=== PATIENT | male | born 1975 | race American Indian/Alaskan Native ===

== ENCOUNTER 2020-02-25 00:25 | Inpatient (IN) | payer MEDICAID ==
[~2020-02-25 00:25] MED LIST: KETAMINE 500 MG/5 ML VIAL MDV ONE; ROCURONIUM 50 MG/5 ML INJ IV ONE
[2020-02-25] MEDS ORDERED: SODIUM CHLORIDE 0.9% 1000 ML 1,000 ML IV ONE (00:28)
[2020-02-25] MEDS ORDERED: SODIUM CHLORIDE 0.9% 1000 ML IV SOLN IV ONE (00:29)
[2020-02-25] MEDS ORDERED: CEFEPIME/NS 2 GM/100 ML 2 GM/100 ML BAG IV ONE ×2 (00:33→15:09)
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
--- NOTE | 2020-02-25 01:18 | XRay Report ---
CHEST 1 VIEW 02/25/2020 12:01 AM INDICATION / CLINICAL INFORMATION: Dyspnea. COMPARISON: None available. FINDINGS: SUPPORT DEVICES: None. HEART / MEDIASTINUM: No significant abnormality. LUNGS / PLEURA: Small bilateral pleural effusions. Extensive airspace consolidation bilaterally worse within both upper lobes characteristic for pneumonia. No pneumothorax. ADDITIONAL FINDINGS: No significant additional findings. IMPRESSION: 1. Severe bilateral bronchopneumonia with small bilateral parapneumonic effusions Signer Name: Ulises Ulrich MD Signed: 02/25/2020 1:13 AM Workstation Name: [id number]
[2020-02-25] MEDS ORDERED: HYDROmorphone 2 MG/1 ML INJ IV ONE ×2 (01:34→03:54)
[2020-02-25] MEDS ORDERED: HYDROmorphone 1 MG/1 ML INJ ONE ×2 (01:34→03:54)
[2020-02-25 01:53] LABS: Basophils % (Auto) 0.4 % (0.0-1.8); Hematocrit 28.5 % (35.5-45.6); Hemoglobin 8.9 gm/dl (11.8-15.2); Lymphocytes # (Auto) 0.9 K/mm3 (1.2-5.4); Lymphocytes % (Auto) 9.1 % (13.4-35.0); Mean Corpuscular HGB Conc 31 % (32-34); Mean Corpuscular Volume 89 fl (84-94); Monocytes # (Auto) 0.4 K/mm3 (0.0-0.8); Monocytes % (Auto) 3.9 % (0.0-7.3); Platelet Count 452 K/mm3 (140-440); Red Blood Count 3.22 M/mm3 (3.65-5.03)
[2020-02-25 02:03] LABS: Red Cell Distribution Width 24.8 % (13.2-15.2)
[2020-02-25] MEDS ORDERED: VANCOMYCIN/NS 1 GM/250 ML 1 GM/250 ML BAG IV ONE (02:07)
[2020-02-25 02:08] LABS: Creatine Kinase MB 2.4 ng/mL (0.0-4.0)
[2020-02-25 02:10] LABS: Albumin 2.5 g/dL (3.9-5); BUN/Creatinine Ratio 21; Blood Urea Nitrogen 17 mg/dL (9-20); Calcium 8.3 mg/dL (8.4-10.2); Hemolysis Index 32
[2020-02-25 02:25] LABS: Alanine Aminotransferase < 5 units/L (7-56)
[2020-02-25 02:50] LABS: Bilirubin,Urine NEG (Negative); Blood,Urine LG (Negative); Color,Urine Yellow (Yellow); Hyaline Casts,Urine 2 /LPF; Urobilinogen,Urine < 2.0 mg/dL (<2.0)
[2020-02-25 02:51] LABS: RBC,Urine > 182.0 /HPF (0.0-6.0)
[2020-02-25 02:54] LABS: Amphetamine Screen,Urine PRESUMPTIVE NEGATIVE; Benzodiazepines Screen,Urine PRESUMPTIVE NEGATIVE; Cannabinoid Screen,Urine PRESUMPTIVE NEGATIVE; Cocaine Screen,Urine PRESUMPTIVE NEGATIVE; Methadone Screen,Urine PRESUMPTIVE NEGATIVE; Opiate Screen,Urine PRESUMPTIVE NEGATIVE
[2020-02-25] MEDS ORDERED: AZITHROMYCIN 500 MG in SODIUM CHLORIDE 0.9% 250ML 250 ML IV ONE (02:58)
[2020-02-25] MEDS ORDERED: dexAMETHasone 4 MG/ML VIAL IV ONE (02:58)
[2020-02-25 03:18] LABS: Chol/HDL Ratio 2.93 %; HDL Cholesterol 32 mg/dL (40-59); LDL Cholesterol,Direct 45 mg/dL (50-130)
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
[2020-02-25] MEDS ORDERED: ONDANSETRON 4 MG/2 ML INJ IV PRN (04:16)
[2020-02-25] MEDS ORDERED: ACETAMINOPHEN 325 MG TAB PO PRN (04:16)
[2020-02-25] MEDS ORDERED: MAGNESIUM HYDROXIDE (MOM) ORAL LIQD UDC PO PRN (04:16)
[2020-02-25 04:40] LABS: C-Reactive Protein 8.8 mg/dL (0.00-1.30)
[2020-02-25] MEDS ORDERED: VANCOMYCIN PHARMACY TO DOSE IV SCH (05:00)
[2020-02-25] MEDS ORDERED: dexAMETHasone 4 MG/ML VIAL ONE (05:39)
[2020-02-25] MEDS ORDERED: LORazepam 2 MG/ML VIAL ONE (05:51)
[2020-02-25] MEDS ORDERED: LORazepam 2 MG/ML VIAL IV ONE (05:52)
[2020-02-25] MEDS ORDERED: FUROSEMIDE 40 MG/4 ML INJ ONE (06:09)
[2020-02-25] MEDS ORDERED: FUROSEMIDE 40 MG/4 ML INJ IV ONE (06:09)
[2020-02-25] MEDS: NORepinephrine/NS 4 MG-250 ML 4 MG/250 ML BAG IV SCH ×6 (06:17→23:10)
[2020-02-25] MEDS ORDERED: NORepinephrine/NS 4 MG-250 ML 4 MG/250 ML BAG IV ONE ×5 (06:17→17:13)
--- NOTE | 2020-02-25 06:23 | XRay Report ---
CHEST 1 VIEW 02/25/2020 5:14 AM INDICATION / CLINICAL INFORMATION: respiratory distress. COMPARISON: 02/25/2020 12:33 AM same day FINDINGS: SUPPORT DEVICES: None. HEART / MEDIASTINUM: Extensive bilateral airspace consolidation and small bilateral pleural effusions are again noted. LUNGS / PLEURA: No significant pulmonary or pleural abnormality. No pneumothorax. ADDITIONAL FINDINGS: No significant additional findings. IMPRESSION: 1. Stable chest with extensive bilateral pneumonia and small bilateral parapneumonic effusions Signer Name: Ulises Ulrich MD Signed: 02/25/2020 6:19 AM Workstation Name: [id number]
[2020-02-25] MEDS ORDERED: fentaNYL DRIP Premix 2,000 MCG/100 ML BAG IV ONE (06:32)
[2020-02-25] MEDS: fentaNYL DRIP Premix 2,000 MCG/100 ML BAG IV SCH ×2 (06:32→18:45)
[2020-02-25] MEDS: HEPARIN 5,000 UNIT/1 ML VIAL SUB-Q SCH ×3 (06:48→21:24)
[2020-02-25] MEDS: CEFEPIME/NS 2 GM/100 ML 2 GM/100 ML BAG IV SCH ×3 (06:48→22:37)
[2020-02-25] MEDS: AMIODARONE 900 MG in DEXTROSE 5% IN WATER 482 ML IV SCH (07:15)
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
[2020-02-25 09:45] LABS: ABG HCO3 17.2 mmol/L (20.0-26.0); ABG Methemoglobin 0.5 % (0.0-1.5); ABG Oxygen Saturation 98.7 % (95.0-99.0); ABG PCO2 50.6 mm Hg; ABG PO2 165.3 mm Hg (80.0-90.0)
[2020-02-25 09:59] LABS: ABG PH 7.149 pH Units (7.350-7.450)
[2020-02-25] MEDS ORDERED: SODIUM CHLORIDE 0.9% 1000 ML 1,000 ML IV SCH (10:48)
[2020-02-25] MEDS: SODIUM CHLORIDE 0.9% 1000 ML 1,000 ML IV SCH ×2 (11:30→20:14)
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
[2020-02-25] MEDS ORDERED: SODIUM CHLORIDE 0.9% 1000 ML 1,000 ML ONE (11:38)
--- NOTE | 2020-02-25 11:42 | XRay Report ---
CHEST 1 VIEW 02/25/2020 10:20 AM INDICATION / CLINICAL INFORMATION: post intubation. COMPARISON: 5:48 AM FINDINGS: SUPPORT DEVICES: Endotracheal tube has been placed with the tip 4 cm above the andrew. Esophagogastri c tube has been placed below the diaphragm into the stomach. HEART / MEDIASTINUM: Stable. LUNGS / PLEURA: Extensive, bilateral pulmonary opacities are unchanged. No pneumothorax. ADDITIONAL FINDINGS: No significant additional findings. IMPRESSION: 1. Endotracheal tube in expected position. Esophagogastric tube in expected position. Signer Name: Janice Zaldivar MD Signed: 02/25/2020 11:37 AM Workstation Name: [id number]
[2020-02-25] MEDS ORDERED: HEPARIN 5,000 UNIT/1 ML VIAL ONE ×2 (13:11→13:14)
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
[2020-02-25] MEDS ORDERED: VANCOMYCIN 750 MG in SODIUM CHLORIDE 0.9% 250ML 250 ML IV SCH (15:00)
[2020-02-25 16:38] LABS: ABG HCO3 17.4 mmol/L (20.0-26.0); ABG Methemoglobin 0.6 % (0.0-1.5); ABG Oxygen Saturation 85.2 % (95.0-99.0); ABG PCO2 40.1 mm Hg; ABG PH 7.256 pH Units (7.350-7.450); ABG PO2 64.5 mm Hg (80.0-90.0)
[2020-02-25] MEDS: VANCOMYCIN 750 MG in SODIUM CHLORIDE 0.9% 250ML 250 ML IV SCH (20:13)
[2020-02-25] MEDS ORDERED: AMIODARONE 150 MG/3 ML INJ IV ONE (22:34)
[2020-02-25] MEDS ORDERED: EPINEPHrine 1 MG/10 ML SYRINGE ONE (22:34)
[2020-02-25] MEDS ORDERED: SODIUM BICARB 8.4% 50 MEQ/50 ML SYRINGE IV ONE (22:34)
[2020-02-26] MEDS: NORepinephrine/NS 4 MG-250 ML 4 MG/250 ML BAG IV SCH ×2 (03:09→07:21)
[2020-02-26] MEDS: AMIODARONE 900 MG in DEXTROSE 5% IN WATER 482 ML IV SCH (03:11)
[2020-02-26 04:33] LABS: ABG Base Excess -11.9 mmol/L (-2.0-3.0); ABG HCO3 13.9 mmol/L (20.0-26.0); ABG Methemoglobin 0.5 % (0.0-1.5); ABG Oxygen Saturation 99.3 % (95.0-99.0); ABG PH 7.269 pH Units (7.350-7.450); ABG PO2 236.1 mm Hg (80.0-90.0)
[2020-02-26] MEDS: fentaNYL DRIP Premix 2,000 MCG/100 ML BAG IV SCH ×2 (04:52→15:57)
[2020-02-26] MEDS: SODIUM CHLORIDE 0.9% 1000 ML 1,000 ML IV SCH (06:36)
[2020-02-26] MEDS: CEFEPIME/NS 2 GM/100 ML 2 GM/100 ML BAG IV SCH ×3 (06:36→21:44)
[2020-02-26] MEDS: HEPARIN 5,000 UNIT/1 ML VIAL SUB-Q SCH ×3 (06:40→21:45)
[2020-02-26 06:41] LABS: Mean Corpuscular HGB Conc 29 % (32-34); Mean Corpuscular Volume 94 fl (84-94); Platelet Count 400 K/mm3 (140-440); Red Blood Count 2.61 M/mm3 (3.65-5.03)
[2020-02-26 06:43] LABS: Hematocrit 24.5 % (35.5-45.6); Red Cell Distribution Width 25.1 % (13.2-15.2)
[2020-02-26 06:48] LABS: INR 1.46 (0.87-1.13)
[2020-02-26 06:58] LABS: BUN/Creatinine Ratio 36; Blood Urea Nitrogen 29 mg/dL (9-20); Calcium 7.8 mg/dL (8.4-10.2); Hemolysis Index 2
[2020-02-26] MEDS ORDERED: DEXTROSE 50% IN WATER (25GM) 50 ML SYRINGE IV ONE (07:00)
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
[2020-02-26] MEDS ORDERED: SODIUM BICARB 8.4% 50 MEQ/50 ML SYRINGE IV ONE (07:18)
[2020-02-26] MEDS ORDERED: SODIUM CHLORIDE 0.9% 500 ML 500 ML IV ONE (08:00)
[2020-02-26] MEDS: VANCOMYCIN 750 MG in SODIUM CHLORIDE 0.9% 250ML 250 ML IV SCH ×2 (09:35→20:48)
--- NOTE | 2020-02-26 09:41 | XRay Report ---
CHEST 1 VIEW [id number] INDICATION / CLINICAL INFORMATION: Hypoxemia COMPARISON: 02/25/2020 FINDINGS: SUPPORT DEVICES: Stable HEART / MEDIASTINUM: Stable LUNGS / PLEURA: Prominent patchy bilateral pulmonary infiltrates continue without significant change. Left pleural effusion is unchanged. No pneumothorax. ADDITIONAL FINDINGS: No significant additional findings. Signer Name: Angel Joya MD Signed: 02/26/2020 9:36 AM Workstation Name: [id number]
[2020-02-26 11:32] LABS: Anisocytosis 2+; Basophils % (Manual) 0 % (0.0-1.8); Eosinophils % (Manual) 0 % (0.0-4.3); Macrocytosis Few; Platelet Estimate Consistent w Auto; Total Cells Counted 100
--- NOTE | 2020-02-26 12:01 | Progress Note ---
Subjective Date of service: 02/26/20 Principal diagnosis: Acute respiratory failure Interval history: Assessment and Plan 1. OOH cardiac arrest, resp failure Vtach requiring shock, now on Iv amiodarone gtt 2. Sepsis 3. Elevated cardiac enzymes likely type II non-ST elevation ID (defib shock, acidosis) 4. Paraplegia Plan Aggressive treatment of sepsis and infection supportive cardiac care with Iv amio for now COVID negative Echo pending Further treatment with based on clinical course Prognosis poor Objective Vital Signs Temp Pulse Resp BP Pulse Ox 02/26/20 08:15 107 H 105/76 100 02/26/20 04:05 130 H 126/97 100 02/26/20 04:00 116 H 02/26/20 03:34 97.9 F 02/26/20 00:00 101 H 02/25/20 23:19 97.4 F L 02/25/20 23:16 113 H 108/79 100 02/25/20 22:00 113 H 02/25/20 19:30 97.5 F L 02/25/20 19:28 131 H 143/95 100 02/25/20 18:30 107 H 21 115/87 100 02/25/20 18:15 107 H 20 117/84 100 02/25/20 18:00 104 H 20 109/81 100 02/25/20 17:45 108 H 20 107/79 100 02/25/20 17:30 107 H 20 106/79 100 02/25/20 17:15 108 H 20 101/70 100 02/25/20 17:00 110 H 21 101/74 100 02/25/20 16:45 114 H 22 106/75 100 02/25/20 16:31 125 H 25 H 127/80 02/25/20 16:15 120 H 17 115/82 100 02/25/20 16:00 119 H 25 H 115/82 100 02/25/20 15:45 124 H 14 115/84 100 02/25/20 15:31 139 H 37 H 135/102 97 02/25/20 15:20 119 H 115/80 100 02/25/20 15:15 131 H 27 H 134/85 100 02/25/20 15:00 119 H 22 115/75 100 02/25/20 14:45 120 H 26 H 105/81 100 02/25/20 14:30 138 H 32 H 130/98 100 09/25/20 14:15 136 H 31 H 142/91 02/25/20 14:00 135 H 35 H 131/91 02/25/20 13:45 116 H 22 116/82 02/25/20 13:30 131 H 33 H 130/109 02/25/20 13:15 130 H 33 H 140/98 02/25/20 13:01 109 H 23 113/86 02/25/20 12:45 109 H 20 111/84 02/25/20 12:31 108 H 23 108/80 02/25/20 12:20 109 H 107/80 02/25/20 12:15 108 H 22 105/79 02/25/20 12:01 109 H 23 104/78 100 - Physical Examination Cardiac: Positive: Reg Rate and Rhythm, S1/S2 Lungs: Positive: Normal Exam - Labs and Meds Coagulation 02/26/20 Range/Units 04:00 PT 17.9 H (12.2-14.9) Sec. INR 1.46 H (0.87-1.13) CBC 02/26/20 Range/Units 04:00 WBC 20.4 H (4.5-11.0) K/mm3 RBC 2.61 L (3.65-5.03) M/mm3 Hgb 7.0 L (11.8-15.2) gm/dl Hct 24.5 L (35.5-45.6) % Plt Count 400 (140-440) K/mm3 Comprehensive Metabolic Panel 02/26/20 Range/Units 04:00 Sodium 143 (137-145) mmol/L Potassium 4.1 (3.6-5.0) mmol/L Chloride 111.1 H (98-107) mmol/L Carbon Dioxide 14 L D (22-30) mmol/L BUN 29 H (9-20) mg/dL Creatinine 0.8 (0.8-1.3) mg/dL Glucose 57 L (75-100) mg/dL Calcium 7.8 L (8.4-10.2) mg/dL - Imaging and Cardiology EKG: report reviewed, image reviewed
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
[2020-02-27] MEDS: fentaNYL DRIP Premix 2,000 MCG/100 ML BAG IV SCH ×2 (02:34→14:00)
[2020-02-27] MEDS: SODIUM CHLORIDE 0.9% 1000 ML 1,000 ML IV SCH ×3 (02:34→23:45)
[2020-02-27] MEDS: NORepinephrine/NS 4 MG-250 ML 4 MG/250 ML BAG IV SCH (02:34)
[2020-02-27] MEDS: AMIODARONE 900 MG in DEXTROSE 5% IN WATER 482 ML IV SCH (02:44)
[2020-02-27 05:25] LABS: ABG Base Excess -8.5 mmol/L (-2.0-3.0); ABG Methemoglobin 0.4 % (0.0-1.5); ABG Oxygen Saturation 98.8 % (95.0-99.0); ABG PCO2 34.9 mm Hg; ABG PH 7.306 pH Units (7.350-7.450); ABG PO2 149.6 mm Hg (80.0-90.0)
[2020-02-27] MEDS: HEPARIN 5,000 UNIT/1 ML VIAL SUB-Q SCH ×3 (06:07→22:35)
[2020-02-27] MEDS: CEFEPIME/NS 2 GM/100 ML 2 GM/100 ML BAG IV SCH ×3 (06:11→22:38)
[2020-02-27] MEDS: VANCOMYCIN 750 MG in SODIUM CHLORIDE 0.9% 250ML 250 ML IV SCH ×2 (06:50→18:18)
[2020-02-27] MEDS ORDERED: DEXTROSE 50% IN WATER (25GM) 50 ML SYRINGE IV ONE (07:11)
[2020-02-27] MEDS: DEXTROSE 50% IN WATER (25GM) 50 ML SYRINGE IV PRN ×2 (07:30→18:18)
[2020-02-27 08:24] LABS: Alanine Aminotransferase 19 units/L (7-56); BUN/Creatinine Ratio 36; Blood Urea Nitrogen 29 mg/dL (9-20); Calcium 7.9 mg/dL (8.4-10.2); Hematocrit 27.4 % (35.5-45.6); Hemoglobin 8.4 gm/dl (11.8-15.2); Hemolysis Index 8; Mean Corpuscular HGB Conc 31 % (32-34); Mean Corpuscular Volume 89 fl (84-94); Platelet Count 351 K/mm3 (140-440); Red Blood Count 3.07 M/mm3 (3.65-5.03)
[2020-02-27 08:38] LABS: Red Cell Distribution Width 24.4 % (13.2-15.2)
--- NOTE | 2020-02-27 09:27 | Progress Note ---
Assessment and Plan 44 y/o male admitted with hypoxemia, fever and brody catheter pain, subsequent cardiac arrest in the ED, resuscitated and intubated, now with hypotension, anion gap metabolic acidosis, acute respiratory failure, hypoglycemia and vtach/vfib 1. Pulm-intubated, sedated. PaO2 is much improved with increased PEEP. CXR is unchanged on yesterday but oxygenation is improving. Down to 40%. Will start to wean PEEP. EF is 15%. Needs cardiac optimization with appropriate heart failure therapy prior to exutabation. Given continued pressor requirement, may even need intropic support. Would like to transfuse more but blood bank will not allow given HgB is 8.4 this am. 2. CV-Vtach during the code. Shocked and treated with amio. Currently on AMio drip. Will continue this for now. Hypotension is likely multifactorial. Echo is showing severe systolic heart failure. Cardiology following, await recs for today. 3. Heme-Anemia. Etiology unknown. Could be from chronic disease. Repeat again tomorrow morning. 4. Renal- aNion Gap now down to 14. Responded to volume and blood. Bicarb is better. Will give an additional amp today to see if this will help with pressor requirement. 5. Endo-hypoglycemic this am. Likely from NPO status. Started on Q6hour Finger sticks and gave D50. Will feed today. 6. 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 Attempting to get records from [place]. Continue broad spec abx therapy and agree with HIV labs. COVID negative. Overall prognosis is guarded to poor CCT 31 minutes. Subjective Date of service: 02/27/20 Principal diagnosis: Acute respiratory failure Interval history: No acute events. Tolerated Blood transfusion on yesterday. Now down to 6 of levophed. Objective Vital Signs - 12hr 02/26/20 02/26/20 02/26/20 21:30 21:45 22:00 Temperature Pulse Rate 125 H 115 H 102 H Respiratory 20 22 17 Rate Blood Pressure 86/62 117/88 98/73 O2 Sat by Pulse 100 Oximetry 02/26/20 02/26/20 02/26/20 22:12 22:15 22:17 Temperature Pulse Rate 94 H 93 H 92 H Respiratory 19 20 19 Rate Blood Pressure 98/73 83/57 83/57 O2 Sat by Pulse 100 100 Oximetry 02/26/20 02/26/20 02/26/20 22:30 22:45 23:00 Temperature Pulse Rate 89 87 88 Respiratory 19 20 21 Rate Blood Pressure 82/58 85/58 83/60 O2 Sat by Pulse Oximetry 02/26/20 02/26/20 02/26/20 23:15 23:19 23:30 Temperature 98.8 F Pulse Rate 88 87 Respiratory 20 20 Rate Blood Pressure 88/63 90/64 O2 Sat by Pulse 100 Oximetry 02/26/20 02/26/20 02/27/20 23:45 23:49 00:00 Temperature Pulse Rate 103 H 114 H 91 H Respiratory 15 21 Rate Blood Pressure 103/79 103/79 123/90 O2 Sat by Pulse 100 100 100 Oximetry 02/27/20 02/27/20 02/27/20 00:03 00:15 00:30 Temperature Pulse Rate 149 H 94 H 85 Respiratory 20 20 Rate Blood Pressure 105/76 101/68 O2 Sat by Pulse 100 Oximetry 02/27/20 02/27/20 02/27/20 00:45 01:00 01:15 Temperature Pulse Rate 88 109 H 118 H Respiratory 20 22 14 Rate Blood Pressure 97/68 110/86 126/97 O2 Sat by Pulse 100 100 Oximetry 02/27/20 02/27/20 02/27/20 01:30 01:45 02:01 Temperature Pulse Rate 109 H 115 H 124 H Respiratory 13 17 25 H Rate Blood Pressure 121/86 126/90 133/95 O2 Sat by Pulse 100 100 Oximetry 02/27/20 02/27/20 02/27/20 02:15 02:30 02:45 Temperature Pulse Rate 104 H 96 H 89 Respiratory 15 21 20 Rate Blood Pressure 112/80 102/74 90/66 O2 Sat by Pulse 100 100 Oximetry 02/27/20 02/27/20 02/27/20 03:00 03:06 03:15 Temperature 98.9 F Pulse Rate 87 101 H Respiratory 18 16 Rate Blood Pressure 92/66 101/73 O2 Sat by Pulse 100 Oximetry 02/27/20 02/27/20 02/27/20 03:30 03:45 04:00 Temperature Pulse Rate 106 H 106 H 116 H Respiratory 26 H 27 H 17 Rate Blood Pressure 114/86 116/87 125/86 O2 Sat by Pulse 100 100 Oximetry 0902/27/20 02/27/20 04:15 04:30 04:45 Temperature Pulse Rate 98 H 115 H 97 H Respiratory 15 30 H 19 Rate Blood Pressure 105/78 119/90 106/75 O2 Sat by Pulse 100 Oximetry 02/27/20 02/27/20 02/27/20 05:00 05:15 05:30 Temperature Pulse Rate 94 H 89 91 H Respiratory 19 20 17 Rate Blood Pressure 99/72 98/71 99/70 O2 Sat by Pulse Oximetry 02/27/20 02/27/20 02/27/20 05:45 06:00 06:15 Temperature Pulse Rate 86 105 H 113 H Respiratory 20 20 21 Rate Blood Pressure 95/68 120/87 128/93 O2 Sat by Pulse 100 Oximetry 02/27/20 02/27/20 06:30 08:14 Temperature Pulse Rate 92 H 91 H Respiratory 20 Rate Blood Pressure 116/82 107/77 O2 Sat by Pulse 99 100 Oximetry Constitutional: agitated, appears uncomfortable, other (diaphoretic) Eyes: icteric, injected ENT: other (orally intubated with poor dentition) Neck: supple, no JVD Effort: mildly labored Ascultation: Right: rhonchi (upper lobe), Bilateral: rales Percussion: Bilateral: not dull Cardiovascular: other (sinus tach) Gastrointestinal: normoactive bowel sounds, soft Extremities: other (per nursing report, decubitus ulcer) Neurologic: unable to assess CBC and BMP: 02/27/20 07:30 02/27/20 07:30 ABG, PT/INR, D-dimer: ABG ABG pH 7.306 pH Units (7.350-7.450) L 02/27/20 04:59 ABG pCO2 34.9 mm Hg 02/27/20 04:59 ABG pO2 149.6 mm Hg (80.0-90.0) H 02/27/20 04:59 ABG O2 Saturation 98.8 % (95.0-99.0) 02/27/20 04:59 PT/INR, D-dimer PT 17.9 Sec. (12.2-14.9) H 02/26/20 04:00 INR 1.46 (0.87-1.13) H 02/26/20 04:00 D-Dimer 3251.26 ng/mlDDU (0-234) H 02/25/20 03:37 Abnormal lab findings: Abnormal Labs 02/25/20 02/25/20 02/25/20 00:46 00:46 00:46 WBC RBC 3.22 L Hgb 8.9 L Hct 28.5 L MCH MCHC 31 L RDW 24.8 H Plt Count 452 H Lymph % (Auto) 9.1 L Lymph # (Auto) 0.9 L Seg Neutrophils % 86.6 H Seg Neuts % (Manual) Lymphocytes % (Manual) Seg Neutrophils # 8.9 H Seg Neutrophils # Man Lymphocytes # (Manual) PT INR D-Dimer ABG pH ABG pO2 ABG HCO3 ABG O2 Saturation ABG Base Excess ABG Hemoglobin Oxyhemoglobin Sodium Chloride Carbon Dioxide BUN Glucose POC Glucose Lactic Acid 2.10 H* Calcium 8.3 L Ferritin AST ALT < 5 L Alkaline Phosphatase 187 H Lactate Dehydrogenase Total Creatine Kinase 28 L CK-MB (CK-2) Rel Index 8.5 H Troponin T 0.190 H* C-Reactive Protein Total Protein Albumin 2.5 L LDL Cholesterol Direct 45 L HDL Cholesterol 32 L Urine WBC (Auto) Crossmatch 02/25/20 02/25/20 02/25/20 02:32 03:37 03:37 WBC RBC Hgb Hct MCH MCHC RDW Plt Count Lymph % (Auto) Lymph # (Auto) Seg Neutrophils % Seg Neuts % (Manual) Lymphocytes % (Manual) Seg Neutrophils # Seg Neutrophils # Man Lymphocytes # (Manual) PT INR D-Dimer 3251.26 H ABG pH ABG pO2 ABG HCO3 ABG O2 Saturation ABG Base Excess ABG Hemoglobin Oxyhemoglobin Sodium Chloride Carbon Dioxide BUN Glucose 144 H POC Glucose Lactic Acid Calcium Ferritin AST ALT Alkaline Phosphatase Lactate Dehydrogenase 234 H Total Creatine Kinase CK-MB (CK-2) Rel Index Troponin T C-Reactive Protein 8.80 H Total Protein Albumin LDL Cholesterol Direct HDL Cholesterol Urine WBC (Auto) 68.0 H Crossmatch 02/25/20 02/25/20 02/25/20 03:37 05:36 06:33 WBC RBC Hgb Hct MCH MCHC RDW Plt Count Lymph % (Auto) Lymph # (Auto) Seg Neutrophils % Seg Neuts % (Manual) Lymphocytes % (Manual) Seg Neutrophils # Seg Neutrophils # Man Lymphocytes # (Manual) PT INR D-Dimer ABG pH ABG pO2 ABG HCO3 ABG O2 Saturation ABG Base Excess ABG Hemoglobin Oxyhemoglobin Sodium Chloride Carbon Dioxide BUN Glucose POC Glucose 234 H Lactic Acid Calcium Ferritin 450.5 H AST ALT Alkaline Phosphatase Lactate Dehydrogenase Total Creatine Kinase CK-MB (CK-2) Rel Index Troponin T 0.187 H* C-Reactive Protein Total Protein Albumin LDL Cholesterol Direct HDL Cholesterol Urine WBC (Auto) Crossmatch 02/25/20 02/25/20 02/25/20 09:30 13:10 16:27 WBC RBC Hgb Hct MCH MCHC RDW Plt Count Lymph % (Auto) Lymph # (Auto) Seg Neutrophils % Seg Neuts % (Manual) Lymphocytes % (Manual) Seg Neutrophils # Seg Neutrophils # Man Lymphocytes # (Manual) PT INR D-Dimer ABG pH 7.149 L* 7.256 L ABG pO2 165.3 H 64.5 L ABG HCO3 17.2 L 17.4 L ABG O2 Saturation 85.2 L ABG Base Excess -11.0 L -9.0 L ABG Hemoglobin 7.5 L 8.4 L Oxyhemoglobin 83.4 L Sodium Chloride Carbon Dioxide BUN Glucose POC Glucose Lactic Acid 3.20 H* Calcium Ferritin AST ALT Alkaline Phosphatase Lactate Dehydrogenase Total Creatine Kinase CK-MB (CK-2) Rel Index Troponin T C-Reactive Protein Total Protein Albumin LDL Cholesterol Direct HDL Cholesterol Urine WBC (Auto) Crossmatch 02/26/20 02/26/20 02/26/20 04:00 04:00 04:00 WBC 20.4 H RBC 2.61 L Hgb 7.0 L Hct 24.5 L MCH 27 L MCHC 29 L RDW 25.1 H Plt Count Lymph % (Auto) Lymph # (Auto) Seg Neutrophils % Seg Neuts % (Manual) 92.0 H Lymphocytes % (Manual) 4.0 L Seg Neutrophils # Seg Neutrophils # Man 18.8 H Lymphocytes # (Manual) 0.8 L PT 17.9 H INR 1.46 H D-Dimer ABG pH ABG pO2 ABG HCO3 ABG O2 Saturation ABG Base Excess ABG Hemoglobin Oxyhemoglobin Sodium Chloride 111.1 H Carbon Dioxide 14 L D BUN 29 H Glucose 57 L POC Glucose Lactic Acid Calcium 7.8 L Ferritin AST ALT Alkaline Phosphatase Lactate Dehydrogenase Total Creatine Kinase CK-MB (CK-2) Rel Index Troponin T C-Reactive Protein Total Protein Albumin LDL Cholesterol Direct HDL Cholesterol Urine WBC (Auto) Crossmatch 02/26/20 02/26/20 02/26/20 04:20 07:13 09:20 WBC RBC Hgb Hct MCH MCHC RDW Plt Count Lymph % (Auto) Lymph # (Auto) Seg Neutrophils % Seg Neuts % (Manual) Lymphocytes % (Manual) Seg Neutrophils # Seg Neutrophils # Man Lymphocytes # (Manual) PT INR D-Dimer ABG pH 7.269 L ABG pO2 236.1 H ABG HCO3 13.9 L ABG O2 Saturation 99.3 H ABG Base Excess -11.9 L ABG Hemoglobin 7.2 L Oxyhemoglobin Sodium Chloride Carbon Dioxide BUN Glucose POC Glucose 52 L Lactic Acid Calcium Ferritin AST ALT Alkaline Phosphatase Lactate Dehydrogenase Total Creatine Kinase CK-MB (CK-2) Rel Index Troponin T C-Reactive Protein Total Protein Albumin LDL Cholesterol Direct HDL Cholesterol Urine WBC (Auto) Crossmatch See Detail 02/27/20 02/27/20 02/27/20 04:59 05:40 07:30 WBC 16.6 H RBC 3.07 L Hgb 8.4 L Hct 27.4 L MCH MCHC 31 L RDW 24.4 H Plt Count Lymph % (Auto) Lymph # (Auto) Seg Neutrophils % Seg Neuts % (Manual) Lymphocytes % (Manual) Seg Neutrophils # Seg Neutrophils # Man Lymphocytes # (Manual) PT INR D-Dimer ABG pH 7.306 L ABG pO2 149.6 H ABG HCO3 17.0 L ABG O2 Saturation ABG Base Excess -8.5 L ABG Hemoglobin 7.8 L Oxyhemoglobin Sodium Chloride Carbon Dioxide BUN Glucose POC Glucose 64 L Lactic Acid Calcium Ferritin AST ALT Alkaline Phosphatase Lactate Dehydrogenase Total Creatine Kinase CK-MB (CK-2) Rel Index Troponin T C-Reactive Protein Total Protein Albumin LDL Cholesterol Direct HDL Cholesterol Urine WBC (Auto) Crossmatch 02/27/20 07:30 WBC RBC Hgb Hct MCH MCHC RDW Plt Count Lymph % (Auto) Lymph # (Auto) Seg Neutrophils % Seg Neuts % (Manual) Lymphocytes % (Manual) Seg Neutrophils # Seg Neutrophils # Man Lymphocytes # (Manual) PT INR D-Dimer ABG pH ABG pO2 ABG HCO3 ABG O2 Saturation ABG Base Excess ABG Hemoglobin Oxyhemoglobin Sodium 146 H Chloride 115.0 H Carbon Dioxide 17 L BUN 29 H Glucose 72 L POC Glucose Lactic Acid Calcium 7.9 L Ferritin AST 118 H ALT Alkaline Phosphatase 273 H Lactate Dehydrogenase Total Creatine Kinase CK-MB (CK-2) Rel Index Troponin T C-Reactive Protein Total Protein 5.3 L D Albumin 2.0 L LDL Cholesterol Direct HDL Cholesterol Urine WBC (Auto) Crossmatch
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
[2020-02-27] MEDS ORDERED: SIMPLE SYRUP 15 ML FEEDTUBE PRN ×2 (10:25)
[2020-02-27] MEDS ORDERED: LIPASE 10,500/PROTEASE 25,000/AMYLASE 43,750 (UNITS) DR CAP FEEDTUBE PRN (10:25)
[2020-02-27] MEDS ORDERED: SODIUM BICARBONATE 325 MG TAB FEEDTUBE PRN (10:25)
--- NOTE | 2020-02-27 10:32 | Progress Note ---
Subjective Date of service: 02/27/20 Principal diagnosis: Acute respiratory failure Interval history: Assessment and Plan 1. OOH cardiac arrest, resp failure Vtach requiring shock, now on IV amiodarone gtt Levophed gtt for pressor agent 2. Sepsis 3. Elevated cardiac enzymes likely type II non-ST elevation CT (defib shock, acidosis) 4. Paraplegia Plan Aggressive treatment of sepsis and infection supportive cardiac care with IV amio/ IV levophed gtt for now COVID negative Cardiac cath if he makes meaningful recovery post sedation and extubation. Objective Vital Signs Temp Pulse Resp BP Pulse Ox 02/27/20 08:14 91 H 107/77 100 02/27/20 06:30 92 H 20 116/82 99 02/27/20 06:15 113 H 21 128/93 02/27/20 06:00 105 H 20 120/87 100 02/27/20 05:45 86 20 95/68 02/27/20 05:30 91 H 17 99/70 02/27/20 05:15 89 20 98/71 02/27/20 05:00 94 H 19 99/72 02/27/20 04:45 97 H 19 106/75 02/27/20 04:30 115 H 30 H 119/90 100 02/27/20 04:15 98 H 15 105/78 02/27/20 04:00 116 H 17 125/86 100 02/27/20 03:45 106 H 27 H 116/87 02/27/20 03:30 106 H 26 H 114/86 100 02/27/20 03:15 101 H 16 101/73 100 02/27/20 03:06 98.9 F 02/27/20 03:00 87 18 92/66 02/27/20 02:45 89 20 90/66 02/27/20 02:30 96 H 21 102/74 100 02/27/20 02:15 104 H 15 112/80 100 02/27/20 02:01 124 H 25 H 133/95 100 02/27/20 01:45 115 H 17 126/90 100 02/27/20 01:30 109 H 13 121/86 02/27/20 01:15 118 H 14 126/97 100 02/27/20 01:00 109 H 22 110/86 100 02/27/20 00:45 88 20 97/68 02/27/20 00:30 85 20 101/68 02/27/20 00:15 94 H 20 105/76 100 02/27/20 00:03 149 H 02/27/20 00:00 91 H 21 123/90 100 02/26/20 23:49 114 H 103/79 100 02/26/20 23:45 103 H 15 103/79 100 02/26/20 23:30 87 20 90/64 02/26/20 23:19 98.8 F 02/26/20 23:15 88 20 88/63 100 02/26/20 23:00 88 21 83/60 02/26/20 22:45 87 20 85/58 02/26/20 22:30 89 19 82/58 02/26/20 22:17 92 H 19 83/57 100 02/26/20 22:15 93 H 20 83/57 02/26/20 22:12 94 H 19 98/73 100 02/26/20 22:00 102 H 17 98/73 02/26/20 21:45 115 H 22 117/88 02/26/20 21:30 125 H 20 86/62 100 02/26/20 21:15 102 H 14 96/69 02/26/20 21:00 92 H 20 82/59 02/26/20 20:45 94 H 19 94/67 100 02/26/20 20:30 95 H 17 81/56 02/26/20 20:15 99 H 20 84/59 02/26/20 20:00 102 H 19 94/67 100 02/26/20 19:56 105 H 02/26/20 19:47 97.6 F 02/26/20 19:45 119 H 13 109/80 100 02/26/20 19:42 116 H 109/80 100 02/26/20 19:30 111 H 22 106/82 98 02/26/20 19:16 121 H 24 116/86 100 02/26/20 19:00 111 H 18 111/85 100 02/26/20 18:45 123 H 24 124/88 100 02/26/20 18:31 113 H 15 109/82 100 02/26/20 18:15 99 H 14 109/82 02/26/20 18:00 116 H 23 124/97 100 02/26/20 17:45 96 H 20 106/81 02/26/20 17:30 89 20 94/70 02/26/20 17:15 94 H 20 97/74 02/26/20 17:00 97 H 20 102/77 02/26/20 16:52 92 H 98/73 100 02/26/20 16:50 97.4 F L 98 H 20 98/73 100 02/26/20 16:45 92 H 20 98/73 02/26/20 16:30 95 H 20 101/76 02/26/20 16:20 97.5 F L 103 H 20 110/84 100 02/26/20 16:15 102 H 20 110/84 02/26/20 16:00 106 H 20 114/86 100 02/26/20 15:50 97.4 F L 114 H 24 116/89 100 02/26/20 15:45 106 H 14 116/89 100 02/26/20 15:30 100 H 19 105/79 02/26/20 15:20 97.8 F 95 H 20 105/81 100 02/26/20 15:15 101 H 17 105/81 100 02/26/20 15:00 99 H 20 98/71 100 02/26/20 14:50 97.0 F L 93 H 20 88/64 100 02/26/20 14:45 96 H 20 88/64 02/26/20 14:30 98 H 20 90/65 02/26/20 14:20 96.4 F L 105 H 20 104/79 100 02/26/20 14:15 106 H 21 104/79 100 02/26/20 14:05 96.7 F L 107 H 20 98/69 100 02/26/20 14:00 105 H 19 98/69 100 02/26/20 13:45 124 H 31 H 117/88 100 02/26/20 13:30 113 H 21 110/84 100 02/26/20 13:15 115 H 25 H 116/90 100 02/26/20 13:00 106 H 20 107/81 02/26/20 12:45 113 H 18 116/90 100 02/26/20 12:35 120 H 107/81 100 02/26/20 12:30 104 H 13 107/81 02/26/20 12:15 128 H 35 H 119/94 100 02/26/20 12:00 97.2 F L 115 H 23 119/94 100 09/26/20 11:45 88 20 107/78 02/26/20 11:30 91 H 20 103/78 02/26/20 11:15 92 H 20 104/76 02/26/20 11:00 92 H 20 100/75 100 02/26/20 10:45 95 H 20 101/77 02/26/20 10:30 95 H 20 99/76 - Labs and Meds Cardiac Enzymes 02/27/20 Range/Units 07:30 AST 118 H (5-40) units/L CBC 02/27/20 Range/Units 07:30 WBC 16.6 H (4.5-11.0) K/mm3 RBC 3.07 L (3.65-5.03) M/mm3 Hgb 8.4 L (11.8-15.2) gm/dl Hct 27.4 L (35.5-45.6) % Plt Count 351 (140-440) K/mm3 Comprehensive Metabolic Panel 02/27/20 Range/Units 07:30 Sodium 146 H (137-145) mmol/L Potassium 3.6 (3.6-5.0) mmol/L Chloride 115.0 H (98-107) mmol/L Carbon Dioxide 17 L (22-30) mmol/L BUN 29 H (9-20) mg/dL Creatinine 0.8 (0.8-1.3) mg/dL Glucose 72 L (75-100) mg/dL Calcium 7.9 L (8.4-10.2) mg/dL AST 118 H (5-40) units/L ALT 19 (7-56) units/L Alkaline Phosphatase 273 H (35-129) units/L Total Protein 5.3 L D (6.3-8.2) g/dL Albumin 2.0 L (3.9-5) g/dL - Imaging and Cardiology EKG: report reviewed, image reviewed
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
--- NOTE | 2020-02-27 12:17 | XRay Report ---
ABDOMEN AP PORTABLE SUPINE 11:30 INDICATION: ngt placement COMPARISON: None available. FINDINGS: Nasogastric tube extends well into the stomach. Signer Name: Angel Joya MD Signed: 02/27/2020 12:13 PM Workstation Name: [id number]
[2020-02-27] MEDS: ISONIAZID 300 MG TAB PO SCH (14:00)
[2020-02-27] MEDS: PYRIDOXINE 50 MG TAB PO SCH (14:02)
[2020-02-27] MEDS: PYRAZINAMIDE 500 MG TAB PO SCH (14:02)
[2020-02-27] MEDS: ETHAMBUTOL 400 MG TAB PO SCH (14:02)
[2020-02-27] MEDS: rifAMPin 300 MG CAP PO SCH (14:02)
[2020-02-28] MEDS: fentaNYL DRIP Premix 2,000 MCG/100 ML BAG IV SCH (00:24)
[2020-02-28] MEDS: NORepinephrine/NS 4 MG-250 ML 4 MG/250 ML BAG IV SCH (00:26)
--- NOTE | 2020-02-28 02:45 | XRay Report ---
ABDOMEN 1 VIEW(S) INDICATION / CLINICAL INFORMATION: NGT placement verification.. COMPARISON: 02/27/2020 FINDINGS: TUBES / LINES: The tip of the NG tube projects over the body the stomach. BOWEL GAS PATTERN/EXTRALUMINAL GAS: No significant abnormality. No pneumatosis or secondary signs of free air. ADDITIONAL FINDINGS: No significant additional findings. IMPRESSION: 1. NG tube tip projects over the body of the stomach. Signer Name: Garcia Ortiz MD Signed: 02/28/2020 2:41 AM Workstation Name: [email or web address]
[2020-02-28] MEDS: AMIODARONE 900 MG in DEXTROSE 5% IN WATER 482 ML IV SCH (04:51)
[2020-02-28] MEDS: HEPARIN 5,000 UNIT/1 ML VIAL SUB-Q SCH ×3 (06:10→21:53)
[2020-02-28 06:11] LABS: BUN/Creatinine Ratio 33; Blood Urea Nitrogen 30 mg/dL (9-20); Calcium 7.8 mg/dL (8.4-10.2); Hemolysis Index 5
[2020-02-28] MEDS: CEFEPIME/NS 2 GM/100 ML 2 GM/100 ML BAG IV SCH (06:18)
[2020-02-28 06:25] LABS: Basophils % (Auto) 0.1 % (0.0-1.8); Hematocrit 26.6 % (35.5-45.6); Lymphocytes # (Auto) 0.9 K/mm3 (1.2-5.4); Lymphocytes % (Auto) 7.5 % (13.4-35.0); Mean Corpuscular HGB Conc 30 % (32-34); Mean Corpuscular Volume 89 fl (84-94); Monocytes # (Auto) 0.7 K/mm3 (0.0-0.8); Monocytes % (Auto) 5.5 % (0.0-7.3); Platelet Count 276 K/mm3 (140-440); Red Blood Count 2.99 M/mm3 (3.65-5.03)
[2020-02-28 06:31] LABS: Red Cell Distribution Width 24.8 % (13.2-15.2)
[2020-02-28] MEDS ORDERED: SODIUM CHLORIDE 0.9% 500 ML 500 ML IV NR (08:32)
--- NOTE | 2020-02-28 08:32 | Progress Note ---
Assessment and Plan 44 y/o male admitted with hypoxemia, fever and brody catheter pain, subsequent cardiac arrest in the ED, resuscitated and intubated, now with hypotension, anion gap metabolic acidosis, acute respiratory failure, hypoglycemia and vtach/vfib, found to have severe left sided heart disease. 1. Pulm-intubated, sedated. PaO2 is much improved with increased PEEP. CXR is unchanged on yesterday but oxygenation is improving. Down to 30%. Will start to wean PEEP. EF is 15%. Cards over the weekend did not feel that dobutamine or milrinone would be beneficial. Spoke with blood bank and given his EF they are willing to give more blood. ordered 1 additional unit today. Will need to give lasix post transfusion. Sedation is now off and will place on PSV trial. 2. CV-Vtach during the code. Shocked and treated with amio. Currently on AMio drip. Will continue this for now. Hypotension is likely multifactorial. Echo is showing severe systolic heart failure. No further therapy mentioned. They did suggest heart cath once extubated. Will transfuse an additional 1 unit today. 3. Heme-Anemia. Etiology unknown. Could be from chronic disease. Will give 1 unit today. 4. Renal- Cr not checked today. 5. Endo-Feeds on hold. Awaiting am blood sugar. 6. 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 Attempting to get records from [place]. Continue broad spec abx therapy and agree with HIV labs. COVID negative. Overall prognosis is guarded to poor, hopeful to extubate later today. CCT 31 minutes. Subjective Date of service: 02/28/20 Principal diagnosis: Acute respiratory failure Interval history: No acute events. ABG is good this am. NO CXR done but not needed. Cardiology saw and reviewed patient after echo read. Objective Vital Signs - 12hr 02/27/20 02/27/20 02/27/20 20:30 20:45 21:00 Temperature Pulse Rate 90 85 81 Respiratory 15 20 19 Rate Blood Pressure 88/66 79/61 78/58 O2 Sat by Pulse 100 Oximetry 02/27/20 02/27/20 02/27/20 21:15 21:30 21:45 Temperature Pulse Rate 82 87 82 Respiratory 20 14 20 Rate Blood Pressure 78/55 85/65 81/60 O2 Sat by Pulse 100 Oximetry 02/27/20 02/27/20 02/27/20 22:00 22:15 22:30 Temperature Pulse Rate 81 92 H 81 Respiratory 20 15 20 Rate Blood Pressure 81/60 96/73 84/63 O2 Sat by Pulse 100 100 100 Oximetry 02/27/20 02/27/20 02/27/20 22:41 22:45 23:00 Temperature Pulse Rate 83 80 80 Respiratory 20 20 20 Rate Blood Pressure 84/63 96/60 86/66 O2 Sat by Pulse 100 Oximetry 02/27/20 02/27/20 02/27/20 23:15 23:30 23:36 Temperature 99.8 F H Pulse Rate 98 H 92 H Respiratory 22 20 Rate Blood Pressure 86/66 95/68 O2 Sat by Pulse 100 100 Oximetry 02/27/20 02/27/20 02/28/20 23:43 23:45 00:00 Temperature Pulse Rate 97 H 96 H 87 Respiratory 15 20 Rate Blood Pressure 104/73 104/73 88/69 O2 Sat by Pulse 100 100 100 Oximetry 02/28/20 02/28/20 02/28/20 00:15 00:30 00:45 Temperature Pulse Rate 81 80 77 Respiratory 20 20 20 Rate Blood Pressure 83/64 84/65 78/59 O2 Sat by Pulse Oximetry 02/28/20 02/28/20 02/28/20 01:00 01:15 01:30 Temperature Pulse Rate 76 88 90 Respiratory 20 20 16 Rate Blood Pressure 77/56 94/75 102/83 O2 Sat by Pulse 100 Oximetry 02/28/20 02/28/20 02/28/20 01:45 02:00 02:15 Temperature Pulse Rate 94 H 93 H 91 H Respiratory 21 17 18 Rate Blood Pressure 107/81 101/81 109/78 O2 Sat by Pulse 100 100 Oximetry 02/28/20 02/28/20 02/28/20 02:30 02:45 02:50 Temperature 99.4 F Pulse Rate 92 H 92 H Respiratory 14 25 H Rate Blood Pressure 103/83 110/88 O2 Sat by Pulse 100 Oximetry 02/28/20 02/28/20 02/28/20 03:00 03:15 03:30 Temperature Pulse Rate 93 H 85 94 H Respiratory 19 20 20 Rate Blood Pressure 101/78 92/70 100/81 O2 Sat by Pulse Oximetry 02/28/20 02/28/20 02/28/20 03:45 04:00 04:15 Temperature Pulse Rate 95 H 98 H 112 H Respiratory 19 21 27 H Rate Blood Pressure 103/84 103/82 116/96 O2 Sat by Pulse 100 Oximetry 02/28/20 02/28/20 02/28/20 04:29 04:30 04:45 Temperature Pulse Rate 97 H 102 H 88 Respiratory 24 20 Rate Blood Pressure 123/82 123/82 96/72 O2 Sat by Pulse 100 100 100 Oximetry 02/28/20 02/28/20 02/28/20 05:00 05:15 05:30 Temperature Pulse Rate 84 92 H 96 H Respiratory 20 15 20 Rate Blood Pressure 86/64 99/75 114/83 O2 Sat by Pulse Oximetry 02/28/20 02/28/20 02/28/20 05:45 06:00 06:15 Temperature Pulse Rate 99 H 97 H 101 H Respiratory 24 17 18 Rate Blood Pressure 110/84 112/92 116/91 O2 Sat by Pulse 100 Oximetry Constitutional: agitated, appears uncomfortable, other (diaphoretic) Eyes: icteric, injected ENT: other (orally intubated with poor dentition) Neck: supple, no JVD Effort: mildly labored Ascultation: Right: rhonchi (upper lobe), Bilateral: rales Percussion: Bilateral: not dull Cardiovascular: other (sinus tach) Gastrointestinal: normoactive bowel sounds, soft Extremities: other (per nursing report, decubitus ulcer) Neurologic: unable to assess CBC and BMP: 02/28/20 05:30 02/28/20 Unknown ABG, PT/INR, D-dimer: ABG ABG pH 7.240 (7.320-7.450) L 02/28/20 04:30 POC ABG pCO2 32.6 mmHg (32.0-48.0) 02/28/20 04:30 ABG pCO2 34.9 mm Hg 02/27/20 04:59 POC ABG pO2 96.3 mmHg (83-108) 02/28/20 04:30 ABG pO2 149.6 mm Hg (80.0-90.0) H 02/27/20 04:59 POC ABG HCO3 13.7 02/28/20 04:30 ABG O2 Saturation 98.8 % (95.0-99.0) 02/27/20 04:59 PT/INR, D-dimer PT 17.9 Sec. (12.2-14.9) H 02/26/20 04:00 INR 1.46 (0.87-1.13) H 02/26/20 04:00 D-Dimer 3251.26 ng/mlDDU (0-234) H 02/25/20 03:37 Abnormal lab findings: Abnormal Labs 02/25/20 02/25/20 02/25/20 00:46 00:46 00:46 WBC RBC 3.22 L Hgb 8.9 L Hct 28.5 L MCH MCHC 31 L RDW 24.8 H Plt Count 452 H Lymph % (Auto) 9.1 L Lymph # (Auto) 0.9 L Seg Neutrophils % 86.6 H Seg Neuts % (Manual) Lymphocytes % (Manual) Seg Neutrophils # 8.9 H Seg Neutrophils # Man Lymphocytes # (Manual) PT INR D-Dimer ABG pH ABG pO2 ABG HCO3 ABG O2 Saturation ABG Base Excess ABG Hemoglobin Oxyhemoglobin Sodium Chloride Carbon Dioxide BUN Glucose POC Glucose Lactic Acid 2.10 H* Calcium 8.3 L Ferritin AST ALT < 5 L Alkaline Phosphatase 187 H Lactate Dehydrogenase Total Creatine Kinase 28 L CK-MB (CK-2) Rel Index 8.5 H Troponin T 0.190 H* C-Reactive Protein Total Protein Albumin 2.5 L LDL Cholesterol Direct 45 L HDL Cholesterol 32 L Urine WBC (Auto) Vancomycin Trough Crossmatch 02/25/20 02/25/20 02/25/20 02:32 03:37 03:37 WBC RBC Hgb Hct MCH MCHC RDW Plt Count Lymph % (Auto) Lymph # (Auto) Seg Neutrophils % Seg Neuts % (Manual) Lymphocytes % (Manual) Seg Neutrophils # Seg Neutrophils # Man Lymphocytes # (Manual) PT INR D-Dimer 3251.26 H ABG pH ABG pO2 ABG HCO3 ABG O2 Saturation ABG Base Excess ABG Hemoglobin Oxyhemoglobin Sodium Chloride Carbon Dioxide BUN Glucose 144 H POC Glucose Lactic Acid Calcium Ferritin AST ALT Alkaline Phosphatase Lactate Dehydrogenase 234 H Total Creatine Kinase CK-MB (CK-2) Rel Index Troponin T C-Reactive Protein 8.80 H Total Protein Albumin LDL Cholesterol Direct HDL Cholesterol Urine WBC (Auto) 68.0 H Vancomycin Trough Crossmatch 02/25/20 02/25/20 02/25/20 03:37 05:36 06:33 WBC RBC Hgb Hct MCH MCHC RDW Plt Count Lymph % (Auto) Lymph # (Auto) Seg Neutrophils % Seg Neuts % (Manual) Lymphocytes % (Manual) Seg Neutrophils # Seg Neutrophils # Man Lymphocytes # (Manual) PT INR D-Dimer ABG pH ABG pO2 ABG HCO3 ABG O2 Saturation ABG Base Excess ABG Hemoglobin Oxyhemoglobin Sodium Chloride Carbon Dioxide BUN Glucose POC Glucose 234 H Lactic Acid Calcium Ferritin 450.5 H AST ALT Alkaline Phosphatase Lactate Dehydrogenase Total Creatine Kinase CK-MB (CK-2) Rel Index Troponin T 0.187 H* C-Reactive Protein Total Protein Albumin LDL Cholesterol Direct HDL Cholesterol Urine WBC (Auto) Vancomycin Trough Crossmatch 02/25/20 02/25/20 02/25/20 09:30 13:10 16:27 WBC RBC Hgb Hct MCH MCHC RDW Plt Count Lymph % (Auto) Lymph # (Auto) Seg Neutrophils % Seg Neuts % (Manual) Lymphocytes % (Manual) Seg Neutrophils # Seg Neutrophils # Man Lymphocytes # (Manual) PT INR D-Dimer ABG pH 7.149 L* 7.256 L ABG pO2 165.3 H 64.5 L ABG HCO3 17.2 L 17.4 L ABG O2 Saturation 85.2 L ABG Base Excess -11.0 L -9.0 L ABG Hemoglobin 7.5 L 8.4 L Oxyhemoglobin 83.4 L Sodium Chloride Carbon Dioxide BUN Glucose POC Glucose Lactic Acid 3.20 H* Calcium Ferritin AST ALT Alkaline Phosphatase Lactate Dehydrogenase Total Creatine Kinase CK-MB (CK-2) Rel Index Troponin T C-Reactive Protein Total Protein Albumin LDL Cholesterol Direct HDL Cholesterol Urine WBC (Auto) Vancomycin Trough Crossmatch 02/26/20 02/26/20 02/26/20 04:00 04:00 04:00 WBC 20.4 H RBC 2.61 L Hgb 7.0 L Hct 24.5 L MCH 27 L MCHC 29 L RDW 25.1 H Plt Count Lymph % (Auto) Lymph # (Auto) Seg Neutrophils % Seg Neuts % (Manual) 92.0 H Lymphocytes % (Manual) 4.0 L Seg Neutrophils # Seg Neutrophils # Man 18.8 H Lymphocytes # (Manual) 0.8 L PT 17.9 H INR 1.46 H D-Dimer ABG pH ABG pO2 ABG HCO3 ABG O2 Saturation ABG Base Excess ABG Hemoglobin Oxyhemoglobin Sodium Chloride 111.1 H Carbon Dioxide 14 L D BUN 29 H Glucose 57 L POC Glucose Lactic Acid Calcium 7.8 L Ferritin AST ALT Alkaline Phosphatase Lactate Dehydrogenase Total Creatine Kinase CK-MB (CK-2) Rel Index Troponin T C-Reactive Protein Total Protein Albumin LDL Cholesterol Direct HDL Cholesterol Urine WBC (Auto) Vancomycin Trough Crossmatch 02/26/20 02/26/20 02/26/20 04:20 07:13 09:20 WBC RBC Hgb Hct MCH MCHC RDW Plt Count Lymph % (Auto) Lymph # (Auto) Seg Neutrophils % Seg Neuts % (Manual) Lymphocytes % (Manual) Seg Neutrophils # Seg Neutrophils # Man Lymphocytes # (Manual) PT INR D-Dimer ABG pH 7.269 L ABG pO2 236.1 H ABG HCO3 13.9 L ABG O2 Saturation 99.3 H ABG Base Excess -11.9 L ABG Hemoglobin 7.2 L Oxyhemoglobin Sodium Chloride Carbon Dioxide BUN Glucose POC Glucose 52 L Lactic Acid Calcium Ferritin AST ALT Alkaline Phosphatase Lactate Dehydrogenase Total Creatine Kinase CK-MB (CK-2) Rel Index Troponin T C-Reactive Protein Total Protein Albumin LDL Cholesterol Direct HDL Cholesterol Urine WBC (Auto) Vancomycin Trough Crossmatch See Detail 02/27/20 02/27/20 02/27/20 04:59 05:40 07:30 WBC 16.6 H RBC 3.07 L Hgb 8.4 L Hct 27.4 L MCH MCHC 31 L RDW 24.4 H Plt Count Lymph % (Auto) Lymph # (Auto) Seg Neutrophils % Seg Neuts % (Manual) Lymphocytes % (Manual) Seg Neutrophils # Seg Neutrophils # Man Lymphocytes # (Manual) PT INR D-Dimer ABG pH 7.306 L ABG pO2 149.6 H ABG HCO3 17.0 L ABG O2 Saturation ABG Base Excess -8.5 L ABG Hemoglobin 7.8 L Oxyhemoglobin Sodium Chloride Carbon Dioxide BUN Glucose POC Glucose 64 L Lactic Acid Calcium Ferritin AST ALT Alkaline Phosphatase Lactate Dehydrogenase Total Creatine Kinase CK-MB (CK-2) Rel Index Troponin T C-Reactive Protein Total Protein Albumin LDL Cholesterol Direct HDL Cholesterol Urine WBC (Auto) Vancomycin Trough Crossmatch 02/27/20 02/27/20 02/27/20 07:30 12:07 18:07 WBC RBC Hgb Hct MCH MCHC RDW Plt Count Lymph % (Auto) Lymph # (Auto) Seg Neutrophils % Seg Neuts % (Manual) Lymphocytes % (Manual) Seg Neutrophils # Seg Neutrophils # Man Lymphocytes # (Manual) PT INR D-Dimer ABG pH ABG pO2 ABG HCO3 ABG O2 Saturation ABG Base Excess ABG Hemoglobin Oxyhemoglobin Sodium 146 H Chloride 115.0 H Carbon Dioxide 17 L BUN 29 H Glucose 72 L POC Glucose 116 H 63 L Lactic Acid Calcium 7.9 L Ferritin AST 118 H ALT Alkaline Phosphatase 273 H Lactate Dehydrogenase Total Creatine Kinase CK-MB (CK-2) Rel Index Troponin T C-Reactive Protein Total Protein 5.3 L D Albumin 2.0 L LDL Cholesterol Direct HDL Cholesterol Urine WBC (Auto) Vancomycin Trough Crossmatch 02/27/20 02/28/20 02/28/20 23:41 04:30 05:30 WBC 12.5 H RBC 2.99 L Hgb 8.0 L Hct 26.6 L MCH 27 L MCHC 30 L RDW 24.8 H Plt Count Lymph % (Auto) 7.5 L Lymph # (Auto) 0.9 L Seg Neutrophils % 86.9 H Seg Neuts % (Manual) Lymphocytes % (Manual) Seg Neutrophils # 10.8 H Seg Neutrophils # Man Lymphocytes # (Manual) PT INR D-Dimer ABG pH 7.240 L ABG pO2 ABG HCO3 ABG O2 Saturation ABG Base Excess ABG Hemoglobin 9.0 L Oxyhemoglobin Sodium Chloride Carbon Dioxide BUN Glucose POC Glucose 131 H Lactic Acid Calcium Ferritin AST ALT Alkaline Phosphatase Lactate Dehydrogenase Total Creatine Kinase CK-MB (CK-2) Rel Index Troponin T C-Reactive Protein Total Protein Albumin LDL Cholesterol Direct HDL Cholesterol Urine WBC (Auto) Vancomycin Trough Crossmatch 02/28/20 02/28/20 06:00 Unknown WBC RBC Hgb Hct MCH MCHC RDW Plt Count Lymph % (Auto) Lymph # (Auto) Seg Neutrophils % Seg Neuts % (Manual) Lymphocytes % (Manual) Seg Neutrophils # Seg Neutrophils # Man Lymphocytes # (Manual) PT INR D-Dimer ABG pH ABG pO2 ABG HCO3 ABG O2 Saturation ABG Base Excess ABG Hemoglobin Oxyhemoglobin Sodium Chloride 114.7 H Carbon Dioxide 14 L BUN 30 H Glucose POC Glucose Lactic Acid Calcium 7.8 L Ferritin AST ALT Alkaline Phosphatase Lactate Dehydrogenase Total Creatine Kinase CK-MB (CK-2) Rel Index Troponin T C-Reactive Protein Total Protein Albumin LDL Cholesterol Direct HDL Cholesterol Urine WBC (Auto) Vancomycin Trough 29.0 H Crossmatch
[2020-02-28] MEDS: PYRAZINAMIDE 500 MG TAB PO SCH (09:53)
[2020-02-28] MEDS: FAMOTIDINE 20 MG TAB PO SCH ×2 (09:53→21:53)
[2020-02-28] MEDS: ISONIAZID 300 MG TAB PO SCH (09:53)
[2020-02-28] MEDS: ETHAMBUTOL 400 MG TAB PO SCH (09:53)
[2020-02-28] MEDS: rifAMPin 300 MG CAP PO SCH (09:53)
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
[2020-02-28] MEDS: CEFEPIME/NS 1 GM/100 ML 1 GM/100 ML BAG IV SCH ×2 (14:50→21:52)
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
[2020-02-28] MEDS: fentaNYL 100 MCG/2 ML INJ IV PRN ×2 (18:37→23:12)
[2020-02-28] MEDS: PYRIDOXINE 50 MG TAB PO SCH (18:38)
[2020-02-28] MEDS: SODIUM CHLORIDE 0.9% 1000 ML 1,000 ML IV SCH (20:14)
[2020-02-29] MEDS: SODIUM CHLORIDE 0.9% 1000 ML 1,000 ML IV SCH (03:57)
[2020-02-29 05:48] LABS: Alanine Aminotransferase 50 units/L (7-56)
[2020-02-29 05:57] LABS: Bilirubin,Direct < 0.2 mg/dL (0-0.2)
[2020-02-29] MEDS: HEPARIN 5,000 UNIT/1 ML VIAL SUB-Q SCH ×3 (05:58→22:02)
[2020-02-29] MEDS: CEFEPIME/NS 1 GM/100 ML 1 GM/100 ML BAG IV SCH ×2 (05:58→13:07)
[2020-02-29] MEDS: ISONIAZID 300 MG TAB PO SCH (09:39)
[2020-02-29] MEDS: PYRAZINAMIDE 500 MG TAB PO SCH (09:39)
[2020-02-29] MEDS: rifAMPin 300 MG CAP PO SCH (09:39)
[2020-02-29] MEDS: ETHAMBUTOL 400 MG TAB PO SCH (09:39)
[2020-02-29] MEDS: PYRIDOXINE 50 MG TAB PO SCH (09:39)
[2020-02-29] MEDS: FAMOTIDINE 20 MG TAB PO SCH ×2 (09:39→22:02)
--- NOTE | 2020-02-29 09:51 | Progress Note ---
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 the vent. Burn Absent Trauma Absent Current % PO Negligible Minimum of two criteria Yes Muscle Mass Mild Depletion (non-severe) Fluid Accumulation Moderate to Severe (severe) #3 Nutrition Diagnosis Increased nutrient needs ( specify in comment below) Comments: Protein Etiology Wound healing As Evidenced by Signs and Symptoms Pt with Buttock PU #2 Nutrition Diagnosis Inadequate oral intake Etiology Mechanical vent As Evidenced by Signs and Symptoms Pt unable to consume PO #1 Nutrition Diagnosis Malnutrition Etiology Chronic illness, paraplegia As Evidenced by Signs and Symptoms muscle wasting and edema Is patient on ventilator? Yes Is Patient Ambulatory and/or Out of Bed No REE-([facility]-confined to bed) [phone] Kcal/Kg value to use for calculation 42 Approximate Energy Requirements Using 1905 kcal/Kg Calculation Used for Recommendations Kcal/kg Additional Notes Protein: 54-90g (1.2-2g/kg) Fluid: 1ml/kcal Nutrition Intervention Change Diet Order: TF Nutrition Support: Osmolite 1.5 at 50ml/hr Flush 150ml q4h Kcal 1,800 Protein (gm) 75 Fluid (mL) 914 Goal #1 TF start/tolerance Anticipated Discharge Needs: unable to determine at this time Follow-Up By: 02/29/20 Additional Comments F/U for TF start/tolerance
[2020-02-29] MEDS: AMIODARONE 900 MG in DEXTROSE 5% IN WATER 482 ML IV SCH (10:06)
[2020-02-29 11:33] LABS: Hematocrit 32.8 % (35.5-45.6); Hemoglobin 10.1 gm/dl (11.8-15.2); Mean Corpuscular HGB Conc 31 % (32-34); Mean Corpuscular Volume 87 fl (84-94); Platelet Count 160 K/mm3 (140-440); Red Blood Count 3.79 M/mm3 (3.65-5.03)
[2020-02-29 11:37] LABS: Red Cell Distribution Width 25.2 % (13.2-15.2)
[2020-02-29 12:06] LABS: BUN/Creatinine Ratio 33; Blood Urea Nitrogen 33 mg/dL (9-20); Calcium 7.8 mg/dL (8.4-10.2); Hemolysis Index 9
[2020-02-29 12:36] LABS: Anisocytosis 2+; Basophils % (Manual) 0 % (0.0-1.8); Eosinophils % (Manual) 0 % (0.0-4.3); Total Cells Counted 100
[2020-02-29 12:37] LABS: Burr Cells 1+; Poikilocytosis 1+
[2020-02-29 12:38] LABS: Platelet Estimate Consistent w Auto; Toxic Granulation 1+
--- NOTE | 2020-02-29 12:45 | Progress Note ---
Assessment and Plan - Patient Problems (1) Acute respiratory failure Current Visit: Yes Status: Acute (2) Anemia Current Visit: Yes Status: Acute Qualifiers: Anemia type: unspecified type Qualified Code(s): D64.9 - Anemia, unspecified (3) Cachexia Current Visit: Yes Status: Acute (4) Cardiorespiratory arrest Current Visit: Yes Status: Acute (5) Fever Current Visit: Yes Status: Acute Qualifiers: Fever type: unspecified Qualified Code(s): R50.9 - Fever, unspecified (6) Pneumonia Current Visit: Yes Status: Acute Qualifiers: Pneumonia type: due to unspecified organism Laterality: bilateral Lung location: unspecified part of lung Qualified Code(s): J18.9 - Pneumonia, unspecified organism (7) Pulmonary TB Current Visit: Yes Status: Acute (8) SIRS (systemic inflammatory response syndrome) Current Visit: Yes Status: Acute Subjective Principal diagnosis: Acute respiratory failure Interval history: on vent Objective Vital Signs - 12hr 02/29/20 02/29/20 02/29/20 00:45 01:00 01:15 Temperature Pulse Rate 87 87 88 Pulse Rate [ From Monitor] Pulse Rate [ Left Radial] Pulse Rate [ Right Radial] Respiratory 32 H 29 H 32 H Rate Blood Pressure 116/92 118/92 116/90 O2 Sat by Pulse 100 100 100 Oximetry 02/29/20 02/29/20 02/29/20 01:30 01:45 02:00 Temperature Pulse Rate 88 88 84 Pulse Rate [ From Monitor] Pulse Rate [ Left Radial] Pulse Rate [ Right Radial] Respiratory 32 H 32 H 30 H Rate Blood Pressure 121/96 117/93 110/88 O2 Sat by Pulse 100 100 100 Oximetry 02/29/20 02/29/20 02/29/20 02:15 02:30 02:45 Temperature Pulse Rate 85 82 90 Pulse Rate [ From Monitor] Pulse Rate [ Left Radial] Pulse Rate [ Right Radial] Respiratory 30 H 28 H 32 H Rate Blood Pressure 108/87 106/85 115/91 O2 Sat by Pulse 99 100 100 Oximetry 02/29/20 02/29/20 02/29/20 03:00 03:15 03:30 Temperature Pulse Rate 94 H 87 86 Pulse Rate [ From Monitor] Pulse Rate [ Left Radial] Pulse Rate [ Right Radial] Respiratory 32 H 31 H 31 H Rate Blood Pressure 120/95 108/87 109/85 O2 Sat by Pulse 100 100 100 Oximetry 02/29/20 02/29/20 02/29/20 03:31 03:45 04:00 Temperature 98.8 F Pulse Rate 96 H 90 Pulse Rate [ From Monitor] Pulse Rate [ 82 Left Radial] Pulse Rate [ 82 Right Radial] Respiratory 37 H 32 H Rate Blood Pressure 125/96 110/88 O2 Sat by Pulse 99 100 Oximetry 02/29/20 02/29/20 02/29/20 04:08 04:15 04:31 Temperature Pulse Rate 87 88 86 Pulse Rate [ From Monitor] Pulse Rate [ Left Radial] Pulse Rate [ Right Radial] Respiratory 32 H 32 H Rate Blood Pressure 110/88 108/85 108/85 O2 Sat by Pulse 100 100 100 Oximetry 02/29/20 02/29/20 02/29/20 04:45 05:00 05:15 Temperature Pulse Rate 83 82 87 Pulse Rate [ From Monitor] Pulse Rate [ Left Radial] Pulse Rate [ Right Radial] Respiratory 30 H 29 H 33 H Rate Blood Pressure 109/86 103/83 111/92 O2 Sat by Pulse 99 100 100 Oximetry 02/29/20 02/29/20 02/29/20 05:30 05:45 06:00 Temperature Pulse Rate 85 83 81 Pulse Rate [ From Monitor] Pulse Rate [ Left Radial] Pulse Rate [ Right Radial] Respiratory 32 H 30 H 28 H Rate Blood Pressure 111/92 108/86 108/86 O2 Sat by Pulse 100 100 Oximetry 02/29/20 02/29/20 02/29/20 06:15 06:30 06:53 Temperature Pulse Rate 88 88 85 Pulse Rate [ From Monitor] Pulse Rate [ Left Radial] Pulse Rate [ Right Radial] Respiratory 32 H 33 H 32 H Rate Blood Pressure 116/92 116/92 108/86 O2 Sat by Pulse 100 100 100 Oximetry 02/29/20 02/29/20 02/29/20 07:00 07:15 07:30 Temperature Pulse Rate 90 85 90 Pulse Rate [ From Monitor] Pulse Rate [ Left Radial] Pulse Rate [ Right Radial] Respiratory 36 H 31 H 36 H Rate Blood Pressure 108/86 112/89 114/96 O2 Sat by Pulse 100 99 99 Oximetry 02/29/20 02/29/20 02/29/20 07:45 07:56 08:00 Temperature 97.9 F Pulse Rate 82 90 89 Pulse Rate [ 89 From Monitor] Pulse Rate [ Left Radial] Pulse Rate [ Right Radial] Respiratory 28 H 30 H Rate Blood Pressure 110/87 108/86 110/89 O2 Sat by Pulse 99 100 100 Oximetry 02/29/20 02/29/20 02/29/20 08:15 08:30 08:45 Temperature Pulse Rate 79 87 80 Pulse Rate [ From Monitor] Pulse Rate [ Left Radial] Pulse Rate [ Right Radial] Respiratory 27 H 27 H 30 H Rate Blood Pressure 109/85 109/85 113/91 O2 Sat by Pulse 99 100 99 Oximetry 02/29/20 02/29/20 02/29/20 09:00 09:15 09:30 Temperature Pulse Rate 88 86 87 Pulse Rate [ From Monitor] Pulse Rate [ Left Radial] Pulse Rate [ Right Radial] Respiratory 35 H 34 H 34 H Rate Blood Pressure 125/102 118/96 122/96 O2 Sat by Pulse 99 99 100 Oximetry 02/29/20 02/29/20 02/29/20 09:45 10:00 10:15 Temperature Pulse Rate 91 H 92 H 92 H Pulse Rate [ From Monitor] Pulse Rate [ Left Radial] Pulse Rate [ Right Radial] Respiratory 12 33 H 35 H Rate Blood Pressure 125/99 130/101 127/99 O2 Sat by Pulse 100 100 100 Oximetry 02/29/20 02/29/20 02/29/20 10:30 10:45 11:00 Temperature Pulse Rate 91 H 88 88 Pulse Rate [ From Monitor] Pulse Rate [ Left Radial] Pulse Rate [ Right Radial] Respiratory 30 H 34 H 34 H Rate Blood Pressure 123/99 113/89 118/94 O2 Sat by Pulse 100 100 100 Oximetry 02/29/20 02/29/20 02/29/20 11:15 11:30 11:45 Temperature Pulse Rate 86 85 85 Pulse Rate [ From Monitor] Pulse Rate [ Left Radial] Pulse Rate [ Right Radial] Respiratory 33 H 26 H 33 H Rate Blood Pressure 114/91 112/88 116/94 O2 Sat by Pulse 100 100 100 Oximetry 02/29/20 02/29/20 02/29/20 12:00 12:15 12:30 Temperature Pulse Rate 87 88 85 Pulse Rate [ 87 From Monitor] Pulse Rate [ Left Radial] Pulse Rate [ Right Radial] Respiratory 32 H 30 H 31 H Rate Blood Pressure 113/87 115/91 108/87 O2 Sat by Pulse 100 100 100 Oximetry 02/29/20 12:35 Temperature Pulse Rate 85 Pulse Rate [ From Monitor] Pulse Rate [ Left Radial] Pulse Rate [ Right Radial] Respiratory Rate Blood Pressure 108/87 O2 Sat by Pulse 100 Oximetry Constitutional: agitated, appears uncomfortable, other (on vent, critically ill) Eyes: icteric, injected ENT: other (orally intubated with poor dentition) Neck: supple, no JVD Ascultation: Right: rhonchi (upper lobe), Bilateral: rales Percussion: Bilateral: not dull Cardiovascular: other (sinus tach) Gastrointestinal: normoactive bowel sounds, soft Extremities: other (per nursing report, decubitus ulcer) Neurologic: unable to assess CBC and BMP: 02/29/20 11:16 02/29/20 11:16 ABG, PT/INR, D-dimer: ABG ABG pH 7.337 (7.320-7.450) 02/29/20 05:17 POC ABG pCO2 22.5 mmHg (32.0-48.0) L 02/29/20 05:17 ABG pCO2 34.9 mm Hg 02/27/20 04:59 POC ABG pO2 119.7 mmHg (83-108) H 02/29/20 05:17 ABG pO2 149.6 mm Hg (80.0-90.0) H 02/27/20 04:59 POC ABG HCO3 11.8 02/29/20 05:17 ABG O2 Saturation 98.8 % (95.0-99.0) 02/27/20 04:59 PT/INR, D-dimer PT 17.9 Sec. (12.2-14.9) H 02/26/20 04:00 INR 1.46 (0.87-1.13) H 02/26/20 04:00 D-Dimer 3251.26 ng/mlDDU (0-234) H 02/25/20 03:37 Abnormal lab findings: Abnormal Labs 02/25/20 02/25/20 02/25/20 00:46 00:46 00:46 WBC RBC 3.22 L Hgb 8.9 L Hct 28.5 L MCH MCHC 31 L RDW 24.8 H Plt Count 452 H Lymph % (Auto) 9.1 L Lymph # (Auto) 0.9 L Seg Neutrophils % 86.6 H Seg Neuts % (Manual) Lymphocytes % (Manual) Nucleated RBC % Seg Neutrophils # 8.9 H Seg Neutrophils # Man Lymphocytes # (Manual) PT INR D-Dimer ABG pH POC ABG pCO2 POC ABG pO2 ABG pO2 ABG HCO3 ABG O2 Saturation ABG Base Excess ABG Hemoglobin Oxyhemoglobin Carboxyhemoglobin Sodium Potassium Chloride Carbon Dioxide BUN Glucose POC Glucose Lactic Acid 2.10 H* Calcium 8.3 L Ferritin AST ALT < 5 L Alkaline Phosphatase 187 H Lactate Dehydrogenase Total Creatine Kinase 28 L CK-MB (CK-2) Rel Index 8.5 H Troponin T 0.190 H* C-Reactive Protein Total Protein Albumin 2.5 L LDL Cholesterol Direct 45 L HDL Cholesterol 32 L Urine WBC (Auto) Vancomycin Trough Crossmatch 02/25/20 02/25/20 02/25/20 02:32 03:37 03:37 WBC RBC Hgb Hct MCH MCHC RDW Plt Count Lymph % (Auto) Lymph # (Auto) Seg Neutrophils % Seg Neuts % (Manual) Lymphocytes % (Manual) Nucleated RBC % Seg Neutrophils # Seg Neutrophils # Man Lymphocytes # (Manual) PT INR D-Dimer 3251.26 H ABG pH POC ABG pCO2 POC ABG pO2 ABG pO2 ABG HCO3 ABG O2 Saturation ABG Base Excess ABG Hemoglobin Oxyhemoglobin Carboxyhemoglobin Sodium Potassium Chloride Carbon Dioxide BUN Glucose 144 H POC Glucose Lactic Acid Calcium Ferritin AST ALT Alkaline Phosphatase Lactate Dehydrogenase 234 H Total Creatine Kinase CK-MB (CK-2) Rel Index Troponin T C-Reactive Protein 8.80 H Total Protein Albumin LDL Cholesterol Direct HDL Cholesterol Urine WBC (Auto) 68.0 H Vancomycin Trough Crossmatch 02/25/20 02/25/20 02/25/20 03:37 05:36 06:33 WBC RBC Hgb Hct MCH MCHC RDW Plt Count Lymph % (Auto) Lymph # (Auto) Seg Neutrophils % Seg Neuts % (Manual) Lymphocytes % (Manual) Nucleated RBC % Seg Neutrophils # Seg Neutrophils # Man Lymphocytes # (Manual) PT INR D-Dimer ABG pH POC ABG pCO2 POC ABG pO2 ABG pO2 ABG HCO3 ABG O2 Saturation ABG Base Excess ABG Hemoglobin Oxyhemoglobin Carboxyhemoglobin Sodium Potassium Chloride Carbon Dioxide BUN Glucose POC Glucose 234 H Lactic Acid Calcium Ferritin 450.5 H AST ALT Alkaline Phosphatase Lactate Dehydrogenase Total Creatine Kinase CK-MB (CK-2) Rel Index Troponin T 0.187 H* C-Reactive Protein Total Protein Albumin LDL Cholesterol Direct HDL Cholesterol Urine WBC (Auto) Vancomycin Trough Crossmatch 02/25/20 02/25/20 02/25/20 09:30 13:10 16:27 WBC RBC Hgb Hct MCH MCHC RDW Plt Count Lymph % (Auto) Lymph # (Auto) Seg Neutrophils % Seg Neuts % (Manual) Lymphocytes % (Manual) Nucleated RBC % Seg Neutrophils # Seg Neutrophils # Man Lymphocytes # (Manual) PT INR D-Dimer ABG pH 7.149 L* 7.256 L POC ABG pCO2 POC ABG pO2 ABG pO2 165.3 H 64.5 L ABG HCO3 17.2 L 17.4 L ABG O2 Saturation 85.2 L ABG Base Excess -11.0 L -9.0 L ABG Hemoglobin 7.5 L 8.4 L Oxyhemoglobin 83.4 L Carboxyhemoglobin Sodium Potassium Chloride Carbon Dioxide BUN Glucose POC Glucose Lactic Acid 3.20 H* Calcium Ferritin AST ALT Alkaline Phosphatase Lactate Dehydrogenase Total Creatine Kinase CK-MB (CK-2) Rel Index Troponin T C-Reactive Protein Total Protein Albumin LDL Cholesterol Direct HDL Cholesterol Urine WBC (Auto) Vancomycin Trough Crossmatch 02/26/20 02/26/20 02/26/20 04:00 04:00 04:00 WBC 20.4 H RBC 2.61 L Hgb 7.0 L Hct 24.5 L MCH 27 L MCHC 29 L RDW 25.1 H Plt Count Lymph % (Auto) Lymph # (Auto) Seg Neutrophils % Seg Neuts % (Manual) 92.0 H Lymphocytes % (Manual) 4.0 L Nucleated RBC % Seg Neutrophils # Seg Neutrophils # Man 18.8 H Lymphocytes # (Manual) 0.8 L PT 17.9 H INR 1.46 H D-Dimer ABG pH POC ABG pCO2 POC ABG pO2 ABG pO2 ABG HCO3 ABG O2 Saturation ABG Base Excess ABG Hemoglobin Oxyhemoglobin Carboxyhemoglobin Sodium Potassium Chloride 111.1 H Carbon Dioxide 14 L D BUN 29 H Glucose 57 L POC Glucose Lactic Acid Calcium 7.8 L Ferritin AST ALT Alkaline Phosphatase Lactate Dehydrogenase Total Creatine Kinase CK-MB (CK-2) Rel Index Troponin T C-Reactive Protein Total Protein Albumin LDL Cholesterol Direct HDL Cholesterol Urine WBC (Auto) Vancomycin Trough Crossmatch 02/26/20 02/26/2002/25/20 04:20 07:13 09:20 WBC RBC Hgb Hct MCH MCHC RDW Plt Count Lymph % (Auto) Lymph # (Auto) Seg Neutrophils % Seg Neuts % (Manual) Lymphocytes % (Manual) Nucleated RBC % Seg Neutrophils # Seg Neutrophils # Man Lymphocytes # (Manual) PT INR D-Dimer ABG pH 7.269 L POC ABG pCO2 POC ABG pO2 ABG pO2 236.1 H ABG HCO3 13.9 L ABG O2 Saturation 99.3 H ABG Base Excess -11.9 L ABG Hemoglobin 7.2 L Oxyhemoglobin Carboxyhemoglobin Sodium Potassium Chloride Carbon Dioxide BUN Glucose POC Glucose 52 L Lactic Acid Calcium Ferritin AST ALT Alkaline Phosphatase Lactate Dehydrogenase Total Creatine Kinase CK-MB (CK-2) Rel Index Troponin T C-Reactive Protein Total Protein Albumin LDL Cholesterol Direct HDL Cholesterol Urine WBC (Auto) Vancomycin Trough Crossmatch See Detail 02/27/20 02/27/20 02/27/20 04:59 05:40 07:30 WBC 16.6 H RBC 3.07 L Hgb 8.4 L Hct 27.4 L MCH MCHC 31 L RDW 24.4 H Plt Count Lymph % (Auto) Lymph # (Auto) Seg Neutrophils % Seg Neuts % (Manual) Lymphocytes % (Manual) Nucleated RBC % Seg Neutrophils # Seg Neutrophils # Man Lymphocytes # (Manual) PT INR D-Dimer ABG pH 7.306 L POC ABG pCO2 POC ABG pO2 ABG pO2 149.6 H ABG HCO3 17.0 L ABG O2 Saturation ABG Base Excess -8.5 L ABG Hemoglobin 7.8 L Oxyhemoglobin Carboxyhemoglobin Sodium Potassium Chloride Carbon Dioxide BUN Glucose POC Glucose 64 L Lactic Acid Calcium Ferritin AST ALT Alkaline Phosphatase Lactate Dehydrogenase Total Creatine Kinase CK-MB (CK-2) Rel Index Troponin T C-Reactive Protein Total Protein Albumin LDL Cholesterol Direct HDL Cholesterol Urine WBC (Auto) Vancomycin Trough Crossmatch 02/27/20 02/27/20 02/27/20 07:30 12:07 18:07 WBC RBC Hgb Hct MCH MCHC RDW Plt Count Lymph % (Auto) Lymph # (Auto) Seg Neutrophils % Seg Neuts % (Manual) Lymphocytes % (Manual) Nucleated RBC % Seg Neutrophils # Seg Neutrophils # Man Lymphocytes # (Manual) PT INR D-Dimer ABG pH POC ABG pCO2 POC ABG pO2 ABG pO2 ABG HCO3 ABG O2 Saturation ABG Base Excess ABG Hemoglobin Oxyhemoglobin Carboxyhemoglobin Sodium 146 H Potassium Chloride 115.0 H Carbon Dioxide 17 L BUN 29 H Glucose 72 L POC Glucose 116 H 63 L Lactic Acid Calcium 7.9 L Ferritin AST 118 H ALT Alkaline Phosphatase 273 H Lactate Dehydrogenase Total Creatine Kinase CK-MB (CK-2) Rel Index Troponin T C-Reactive Protein Total Protein 5.3 L D Albumin 2.0 L LDL Cholesterol Direct HDL Cholesterol Urine WBC (Auto) Vancomycin Trough Crossmatch 02/27/20 02/28/20 02/28/20 23:41 04:30 05:30 WBC 12.5 H RBC 2.99 L Hgb 8.0 L Hct 26.6 L MCH 27 L MCHC 30 L RDW 24.8 H Plt Count Lymph % (Auto) 7.5 L Lymph # (Auto) 0.9 L Seg Neutrophils % 86.9 H Seg Neuts % (Manual) Lymphocytes % (Manual) Nucleated RBC % Seg Neutrophils # 10.8 H Seg Neutrophils # Man Lymphocytes # (Manual) PT INR D-Dimer ABG pH 7.240 L POC ABG pCO2 POC ABG pO2 ABG pO2 ABG HCO3 ABG O2 Saturation ABG Base Excess ABG Hemoglobin 9.0 L Oxyhemoglobin Carboxyhemoglobin Sodium Potassium Chloride Carbon Dioxide BUN Glucose POC Glucose 131 H Lactic Acid Calcium Ferritin AST ALT Alkaline Phosphatase Lactate Dehydrogenase Total Creatine Kinase CK-MB (CK-2) Rel Index Troponin T C-Reactive Protein Total Protein Albumin LDL Cholesterol Direct HDL Cholesterol Urine WBC (Auto) Vancomycin Trough Crossmatch 02/28/20 02/28/20 02/28/20 06:00 09:00 17:25 WBC RBC Hgb Hct MCH MCHC RDW Plt Count Lymph % (Auto) Lymph # (Auto) Seg Neutrophils % Seg Neuts % (Manual) Lymphocytes % (Manual) Nucleated RBC % Seg Neutrophils # Seg Neutrophils # Man Lymphocytes # (Manual) PT INR D-Dimer ABG pH POC ABG pCO2 POC ABG pO2 ABG pO2 ABG HCO3 ABG O2 Saturation ABG Base Excess ABG Hemoglobin Oxyhemoglobin Carboxyhemoglobin Sodium Potassium Chloride Carbon Dioxide BUN Glucose POC Glucose 121 H 61 L Lactic Acid Calcium Ferritin AST ALT Alkaline Phosphatase Lactate Dehydrogenase Total Creatine Kinase CK-MB (CK-2) Rel Index Troponin T C-Reactive Protein Total Protein Albumin LDL Cholesterol Direct HDL Cholesterol Urine WBC (Auto) Vancomycin Trough 29.0 H Crossmatch 02/28/20 02/29/20 02/29/20 Unknown 04:32 05:17 WBC RBC Hgb Hct MCH MCHC RDW Plt Count Lymph % (Auto) Lymph # (Auto) Seg Neutrophils % Seg Neuts % (Manual) Lymphocytes % (Manual) Nucleated RBC % Seg Neutrophils # Seg Neutrophils # Man Lymphocytes # (Manual) PT INR D-Dimer ABG pH POC ABG pCO2 22.5 L POC ABG pO2 119.7 H ABG pO2 ABG HCO3 ABG O2 Saturation ABG Base Excess ABG Hemoglobin 10.5 L Oxyhemoglobin Carboxyhemoglobin 0.3 L Sodium Potassium Chloride 114.7 H Carbon Dioxide 14 L BUN 30 H Glucose POC Glucose Lactic Acid Calcium 7.8 L Ferritin AST 193 H ALT Alkaline Phosphatase 354 H Lactate Dehydrogenase Total Creatine Kinase CK-MB (CK-2) Rel Index Troponin T C-Reactive Protein Total Protein 5.6 L Albumin 2.0 L LDL Cholesterol Direct HDL Cholesterol Urine WBC (Auto) Vancomycin Trough Crossmatch 02/29/20 02/29/20 02/29/20 05:29 11:16 11:16 WBC 15.1 H RBC Hgb 10.1 L Hct 32.8 L D MCH 27 L MCHC 31 L RDW 25.2 H Plt Count Lymph % (Auto) Lymph # (Auto) Seg Neutrophils % Seg Neuts % (Manual) 98.0 H Lymphocytes % (Manual) 1.0 L Nucleated RBC % 5.0 H Seg Neutrophils # Seg Neutrophils # Man 14.8 H Lymphocytes # (Manual) 0.2 L PT INR D-Dimer ABG pH POC ABG pCO2 POC ABG pO2 ABG pO2 ABG HCO3 ABG O2 Saturation ABG Base Excess ABG Hemoglobin Oxyhemoglobin Carboxyhemoglobin Sodium Potassium 3.5 L Chloride 111.7 H Carbon Dioxide 14 L BUN 33 H Glucose 180 H POC Glucose 125 H Lactic Acid Calcium 7.8 L Ferritin AST ALT Alkaline Phosphatase Lactate Dehydrogenase Total Creatine Kinase CK-MB (CK-2) Rel Index Troponin T C-Reactive Protein Total Protein Albumin LDL Cholesterol Direct HDL Cholesterol Urine WBC (Auto) Vancomycin Trough Crossmatch
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
--- NOTE | 2020-02-29 15:17 | Progress Note ---
Assessment and Plan - Patient Problems (1) Acute respiratory failure Current Visit: Yes Status: Acute Plan to address problem: Patient is admitted with fever and acute respiratory failure due to severe bilateral pneumonia. (2) Atrial fibrillation Current Visit: Yes Status: Acute Plan to address problem: Atrial fibrillation of uncertain chronicity, we will pursue a rate control strategy. Long-term oral anticoagulation will be determined when patient is stable clinically post pneumonia treatment. (3) Dilated cardiomyopathy Current Visit: Yes Status: Acute Plan to address problem: Dilated cardiomyopathy with ejection fraction 15 to 20%, a new diagnosis, of uncertain chronicity. We will institute guideline directed optimal medical therapy as tolerated in this patient that is currently acutely ill, unresponsive, on the vent with bilateral pneumonia and sepsis. Subjective Date of service: 02/29/20 Principal diagnosis: Acute respiratory failure Interval history: Patient is unresponsive, on the vent. He was admitted with fever, sepsis and found on presentation with atrial fibrillation of uncertain chronicity. Echocardiogram on this presentation shows a severe cardiomyopathy with an ejection fraction 15 to 20%, also of uncertain chronicity. Chest x-ray shows a severe bilateral pneumonia, which is the primary clinical problem on this presentation. Patient remains ventilated. COVID-19 test was reported negative. Objective Vital Signs Temp Pulse Pulse Pulse Pulse Resp BP 02/29/20 15:00 84 33 H 116/96 02/29/20 14:46 85 32 H 02/29/20 14:30 86 34 H 116/96 02/29/20 14:15 87 37 H 116/96 02/29/20 14:00 86 32 H 118/96 02/29/20 13:46 87 35 H 118/96 02/29/20 13:30 82 32 H 107/86 02/29/20 13:16 85 34 H 113/92 02/29/20 13:00 85 33 H 113/92 02/29/20 12:45 85 28 H 109/88 02/29/20 12:35 85 108/87 02/29/20 12:30 85 31 H 108/87 02/29/20 12:15 88 30 H 115/91 02/29/20 12:00 87 87 32 H 113/87 02/29/20 11:45 85 33 H 116/94 02/29/20 11:30 85 26 H 112/88 02/29/20 11:15 86 33 H 114/91 02/29/20 11:00 88 34 H 118/94 02/29/20 10:45 88 34 H 113/89 02/29/20 10:30 91 H 30 H 123/99 02/29/20 10:15 92 H 35 H 127/99 02/29/20 10:00 92 H 33 H 130/101 02/29/20 09:45 91 H 12 125/99 02/29/20 09:30 87 34 H 122/96 02/29/20 09:15 86 34 H 118/96 02/29/20 09:00 88 35 H 125/102 02/29/20 08:45 80 30 H 113/91 02/29/20 08:30 87 27 H 109/85 02/29/20 08:15 79 27 H 109/85 02/29/20 08:00 97.9 F 89 89 30 H 110/89 02/29/20 07:56 90 108/86 02/29/20 07:45 82 28 H 110/87 02/29/20 07:30 90 36 H 114/96 02/29/20 07:15 85 31 H 112/89 02/29/20 07:00 90 36 H 108/86 02/29/20 06:53 85 32 H 108/86 02/29/20 06:30 88 33 H 116/92 02/29/20 06:15 88 32 H 116/92 02/29/20 06:00 81 28 H 108/86 02/29/20 05:45 83 30 H 108/86 02/29/20 05:30 85 32 H 111/92 02/29/20 05:15 87 33 H 111/92 02/29/20 05:00 82 29 H 103/83 02/29/20 04:45 83 30 H 109/86 02/29/20 04:31 86 32 H 108/85 02/29/20 04:15 88 32 H 108/85 02/29/20 04:08 87 110/88 02/29/20 04:00 90 82 82 32 H 110/88 02/29/20 03:45 96 H 37 H 125/96 02/29/20 03:31 98.8 F 02/29/20 03:30 86 31 H 109/85 02/29/20 03:15 87 31 H 108/87 02/29/20 03:00 94 H 32 H 120/95 02/29/20 02:45 90 32 H 115/91 02/29/20 02:30 82 28 H 106/85 02/29/20 02:15 85 30 H 108/87 02/29/20 02:00 84 30 H 110/88 02/29/20 01:45 88 32 H 117/93 02/29/20 01:30 88 32 H 121/96 02/29/20 01:15 88 32 H 116/90 02/29/20 01:00 87 29 H 118/92 02/29/20 00:45 87 32 H 116/92 02/29/20 00:30 88 31 H 120/95 02/29/20 00:15 88 31 H 124/97 02/29/20 00:14 88 124/97 02/29/20 00:00 87 80 80 21 123/99 02/28/20 23:45 85 29 H 118/93 02/28/20 23:31 98.4 F 02/28/20 23:30 84 27 H 115/93 02/28/20 23:15 87 31 H 123/92 02/28/20 23:00 88 31 H 118/96 02/28/20 22:45 89 31 H 125/96 02/28/20 22:30 89 33 H 125/98 02/28/20 22:27 90 34 H 122/93 02/28/20 22:15 87 27 H 122/93 02/28/20 22:00 87 31 H 121/98 02/28/20 21:45 88 30 H 125/94 02/28/20 21:30 86 28 H 118/93 02/28/20 21:15 89 32 H 122/99 02/28/20 21:04 88 118/95 02/28/20 21:00 86 29 H 118/95 02/28/20 20:45 85 29 H 114/90 02/28/20 20:30 86 29 H 117/93 02/28/20 20:15 87 29 H 116/86 02/28/20 20:00 98.8 F 88 90 90 24 110/90 02/28/20 19:45 86 27 H 117/90 02/28/20 19:30 89 30 H 117/92 02/28/20 19:15 91 H 30 H 121/90 02/28/20 19:01 93 H 23 119/90 02/28/20 18:45 91 H 29 H 119/90 02/28/20 18:30 94 H 38 H 125/82 02/28/20 18:15 93 H 31 H 116/92 02/28/20 18:00 94 H 30 H 116/93 02/28/20 17:45 95 H 38 H 112/86 02/28/20 17:31 92 H 35 H 119/82 02/28/20 17:15 95 H 32 H 126/73 02/28/20 17:01 96 H 39 H 106/84 02/28/20 16:45 95 H 37 H 114/85 02/28/20 16:31 95 H 32 H 91/34 02/28/20 16:26 94 H 73/27 02/28/20 16:15 96 H 19 114/85 02/28/20 16:01 95 H 35 H 114/85 02/28/20 16:00 95 H 95 H 95 H 23 02/28/20 15:45 98 H 30 H 116/87 02/28/20 15:31 96 H 39 H 116/87 02/28/20 15:15 96 H 30 H 121/85 Pulse Ox 02/29/20 15:00 100 02/29/20 14:46 02/29/20 14:30 02/29/20 14:15 02/29/20 14:00 02/29/20 13:46 98 02/29/20 13:30 98 02/29/20 13:16 99 02/29/20 13:00 02/29/20 12:45 100 02/29/20 12:35 100 02/29/20 12:30 100 02/29/20 12:15 02/29/20 12:00 02/29/20 11:45 100 02/29/20 11:30 100 02/29/20 11:15 02/29/20 11:00 02/29/20 10:45 02/29/20 10:30 100 02/29/20 10:15 100 02/29/20 10:00 02/29/20 09:45 100 02/29/20 09:30 100 02/29/20 09:15 99 02/29/20 09:00 99 02/29/20 08:45 99 02/29/20 08:30 100 02/29/20 08:15 99 02/29/20 08:00 100 02/29/20 07:56 100 02/29/20 07:45 99 02/29/20 07:30 99 02/29/20 07:15 99 02/29/20 07:00 100 02/29/20 06:53 100 02/29/20 06:30 100 02/29/20 06:15 100 02/29/20 06:00 100 02/29/20 05:45 100 02/29/20 05:30 02/29/20 05:15 100 02/29/20 05:00 100 02/29/20 04:45 99 02/29/20 04:31 100 02/29/20 04:15 100 02/29/20 04:08 100 02/29/20 04:00 100 02/29/20 03:45 99 02/29/20 03:31 02/29/20 03:30 100 02/29/20 03:15 100 02/29/20 03:00 100 02/29/20 02:45 100 02/29/20 02:30 100 02/29/20 02:15 99 02/29/20 02:00 100 02/29/20 01:45 100 02/29/20 01:30 100 02/29/20 01:15 100 02/29/20 01:00 100 02/29/20 00:45 100 02/29/20 00:30 100 02/29/20 00:15 100 02/29/20 00:14 100 02/29/20 00:00 100 02/28/20 23:45 02/28/20 23:31 02/28/20 23:30 100 02/28/20 23:15 100 02/28/20 23:00 99 02/28/20 22:45 99 02/28/20 22:30 100 02/28/20 22:27 100 02/28/20 22:15 100 02/28/20 22:00 99 02/28/20 21:45 100 02/28/20 21:30 100 02/28/20 21:15 100 02/28/20 21:04 100 02/28/20 21:00 02/28/20 20:45 02/28/20 20:30 02/28/20 20:15 99 02/28/20 20:00 99 02/28/20 19:45 100 02/28/20 19:30 99 02/28/20 19:15 99 02/28/20 19:01 02/28/20 18:45 02/28/20 18:30 98 02/28/20 18:15 98 02/28/20 18:00 99 02/28/20 17:45 100 02/28/20 17:31 99 02/28/20 17:15 98 02/28/20 17:01 02/28/20 16:45 02/28/20 16:31 02/28/20 16:26 02/28/20 16:15 99 02/28/20 16:01 02/28/20 16:00 97 02/28/20 15:45 02/28/20 15:31 02/28/20 15:15 - Physical Examination Narrative exam: Full exam is deferred due to uncertain COVID status. General: Other (Unresponsive, on the vent) - Labs and Meds Cardiac Enzymes 02/29/20 Range/Units 04:32 AST 193 H (5-40) units/L CBC 02/29/20 Range/Units 11:16 WBC 15.1 H (4.5-11.0) K/mm3 RBC 3.79 (3.65-5.03) M/mm3 Hgb 10.1 L (11.8-15.2) gm/dl Hct 32.8 L D (35.5-45.6) % Plt Count 160 (140-440) K/mm3 Comprehensive Metabolic Panel 02/29/20 02/29/20 Range/Units 04:32 11:16 Sodium 140 (137-145) mmol/L Potassium 3.5 L (3.6-5.0) mmol/L Chloride 111.7 H (98-107) mmol/L Carbon Dioxide 14 L (22-30) mmol/L BUN 33 H (9-20) mg/dL Creatinine 1.0 (0.8-1.3) mg/dL Glucose 180 H (75-100) mg/dL Calcium 7.8 L (8.4-10.2) mg/dL Direct Bilirubin < 0.2 (0-0.2) mg/dL Indirect Bilirubin 0.1 mg/dL AST 193 H (5-40) units/L ALT 50 (7-56) units/L Alkaline Phosphatase 354 H (35-129) units/L Total Protein 5.6 L (6.3-8.2) g/dL Albumin 2.0 L (3.9-5) g/dL - Imaging and Cardiology EKG: report reviewed, image reviewed
[2020-02-29] MEDS: fentaNYL 100 MCG/2 ML INJ IV PRN (23:47)
[2020-03-01] MEDS: fentaNYL 100 MCG/2 ML INJ IV PRN ×3 (06:17→23:11)
[2020-03-01] MEDS: HEPARIN 5,000 UNIT/1 ML VIAL SUB-Q SCH (06:17)
[2020-03-01 08:24] LABS: Hematocrit 32.3 % (35.5-45.6); Mean Corpuscular HGB Conc 31 % (32-34); Mean Corpuscular Volume 86 fl (84-94); Red Blood Count 3.77 M/mm3 (3.65-5.03)
[2020-03-01 08:35] LABS: Platelet Count 99 K/mm3 (140-440); Red Cell Distribution Width 25.4 % (13.2-15.2)
[2020-03-01 08:37] LABS: BUN/Creatinine Ratio 36; Blood Urea Nitrogen 36 mg/dL (9-20); Calcium 7.9 mg/dL (8.4-10.2); Hemolysis Index 5
[2020-03-01 08:58] LABS: ABG Base Excess -13.3 mmol/L (-2.0-3.0); ABG HCO3 11.7 mmol/L (20.0-26.0); ABG Oxygen Saturation 95.6 % (95.0-99.0); ABG PCO2 24.9 mm Hg; ABG PH 7.288 pH Units (7.350-7.450); ABG PO2 85.2 mm Hg (80.0-90.0)
[2020-03-01 08:59] LABS: ABG Methemoglobin 0.3 % (0.0-1.5)
[2020-03-01] MEDS: PYRAZINAMIDE 500 MG TAB PO SCH (09:10)
[2020-03-01] MEDS: rifAMPin 300 MG CAP PO SCH (09:10)
[2020-03-01] MEDS: PYRIDOXINE 50 MG TAB PO SCH (09:11)
[2020-03-01] MEDS: ISONIAZID 300 MG TAB PO SCH (09:11)
[2020-03-01] MEDS: FAMOTIDINE 20 MG TAB PO SCH ×2 (09:11→23:11)
[2020-03-01] MEDS: ETHAMBUTOL 400 MG TAB PO SCH (09:11)
--- NOTE | 2020-03-01 09:27 | Progress Note ---
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 Pertinent Medications NS at 125ml/hr Vitamin B6 propofol Height 5 ft 9 in Weight 45.359 kg [place] Body Weight (kg) 72.72 BMI 14.8 Subjective/Other Information F/U for TF start and tolerance . Per RN, TF running at 30ml/ hr and tolerating. Percent of energy/protein needs met: 57%/84% Burn Absent Trauma Absent Current % PO Negligible Minimum of two criteria Yes Muscle Mass Mild Depletion (non-severe) Fluid Accumulation Moderate to Severe (severe) #3 Nutrition Diagnosis Increased nutrient needs ( specify in comment below) Diagnosis Progress(for reassessment Continues documentation) #2 Nutrition Diagnosis Inadequate oral intake Diagnosis Progress(for reassessment Continues documentation) #1 Nutrition Diagnosis Malnutrition Diagnosis Progress(for reassessment Continues documentation) Is patient on ventilator? Yes Is Patient Ambulatory and/or Out of Bed No REE-([facility]-confined to bed) 1592.628 Kcal/Kg value to use for calculation 42 Approximate Energy Requirements Using 1905 kcal/Kg Calculation Used for Recommendations Kcal/kg Additional Notes Protein: 54-90g (1.2-2g/kg) Fluid: 1ml/kcal Nutrition Intervention Change Diet Order: Continue TF Nutrition Support: Osmolite 1.5 at 50ml/hr Flush 150ml q4h Kcal 1,800 Protein (gm) 75 Fluid (mL) 914 Goal #1 TF tolerance Goal #2 Meet at least 100% of energy and protein needs via TF. Goal #3 Wound healing Goal #4 Wt maintenance or wt gain Anticipated Discharge Needs: unable to determine at this time Follow-Up By: 03/01/20 Additional Comments F/U for TF goal rate
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
--- NOTE | 2020-03-01 11:17 | Progress Note ---
Assessment and Plan Acute respiratory failure Bilateral pneumonia Dilated cardiomyopathy, uncertain chronicity LVEF 15 to 20% by echo this presentation Reports of Transient VF following multiple rounds of epi during code BLUE no strips available for review currently in sinus rhythm on IV amiodarone for suppression. Hx of tuberculosis Will transition to oral amiodarone for suppression of arrhythmias. Guideline directed optimal medical therapy for dilated cardiomyopathy. Subjective Date of service: 03/01/20 Principal diagnosis: Acute respiratory failure Interval history: Remains intubated on the vent. Sinus rhythm on telemetry. Objective Vital Signs Temp Pulse Pulse Resp BP Pulse Ox 03/01/20 10:00 83 33 H 123/96 03/01/20 09:45 83 33 H 121/94 03/01/20 09:30 86 29 H 112/85 100 03/01/20 09:27 86 112/85 100 03/01/20 09:15 79 31 H 101/80 99 03/01/20 09:00 80 31 H 108/83 100 03/01/20 08:45 80 29 H 103/81 98 03/01/20 08:30 82 31 H 99 03/01/20 08:15 83 31 H 105/84 99 03/01/20 08:00 98.1 F 79 81 21 100/78 99 03/01/20 07:45 77 29 H 105/77 99 03/01/20 07:30 79 30 H 95/75 99 03/01/20 07:15 80 30 H 101/78 03/01/20 07:00 80 30 H 96/73 98 03/01/20 06:45 83 31 H 99/74 100 03/01/20 06:30 79 26 H 114/89 99 03/01/20 06:15 90 36 H 114/89 98 03/01/20 06:00 91 H 36 H 117/89 99 03/01/20 05:45 93 H 37 H 117/89 100 03/01/20 05:30 94 H 37 H 118/88 100 03/01/20 05:16 89 36 H 105/80 99 03/01/20 05:00 83 33 H 105/80 98 03/01/20 04:45 85 34 H 106/82 99 03/01/20 04:30 86 35 H 107/83 97 03/01/20 04:15 86 32 H 112/86 99 03/01/20 04:00 96.1 F L 89 83 35 H 111/87 100 03/01/20 03:45 90 35 H 115/83 99 03/01/20 03:30 92 H 38 H 119/89 100 03/01/20 03:15 92 H 36 H 118/95 99 03/01/20 03:00 91 H 38 H 120/96 99 03/01/20 02:45 83 33 H 108/81 100 03/01/20 02:30 83 33 H 99/79 98 03/01/20 02:15 85 34 H 106/81 99 03/01/20 02:00 89 35 H 109/86 99 03/01/20 01:45 88 35 H 111/89 99 03/01/20 01:30 89 35 H 110/80 99 03/01/20 01:15 94 H 28 H 120/90 99 03/01/20 01:00 90 34 H 113/88 99 03/01/20 00:45 92 H 38 H 115/90 99 03/01/20 00:31 92 H 123/96 100 03/01/20 00:30 91 H 31 H 123/96 03/01/20 00:15 89 35 H 114/88 99 03/01/20 00:00 89 81 34 H 113/90 100 02/29/20 23:50 96.0 F L 02/29/20 23:47 40 H 02/29/20 23:45 90 36 H 110/79 02/29/20 23:30 93 H 37 H 113/91 02/29/20 23:16 90 38 H 113/91 02/29/20 23:02 82 32 H 99/74 100 02/29/20 23:00 81 32 H 97/78 99 02/29/20 22:54 81 33 H 99/74 100 02/29/20 22:45 80 32 H 99/74 100 02/29/20 22:30 80 33 H 106/81 99 02/29/20 22:15 80 33 H 94/69 99 02/29/20 22:00 86 34 H 99/78 100 02/29/20 21:45 88 34 H 100/73 100 02/29/20 21:30 89 36 H 102/74 100 02/29/20 21:16 90 38 H 107/82 99 02/29/20 21:00 88 34 H 104/75 100 02/29/20 20:58 90 104/75 100 02/29/20 20:45 88 36 H 97/76 100 02/29/20 20:30 87 34 H 106/84 100 02/29/20 20:16 91 H 37 H 106/84 99 02/29/20 20:00 90 81 32 H 100/79 100 02/29/20 19:45 86 34 H 100/79 100 02/29/20 19:30 90 37 H 104/80 100 02/29/20 19:16 87 33 H 91/65 02/29/20 19:00 86 33 H 91/65 02/29/20 18:45 85 33 H 97/73 100 02/29/20 18:30 86 36 H 101/82 100 02/29/20 18:15 83 32 H 92/71 02/29/20 18:00 98.7 F 85 34 H 100/77 99 02/29/20 17:45 86 34 H 96/74 02/29/20 17:30 86 34 H 97/73 100 02/29/20 17:16 86 33 H 98/70 02/29/20 17:00 89 36 H 102/70 02/29/20 16:46 86 34 H 173/114 02/29/20 16:30 85 30 H 100/74 100 02/29/20 16:15 85 33 H 102/70 02/29/20 16:00 86 86 34 H 101/75 02/29/20 15:45 83 32 H 104/72 99 02/29/20 15:30 88 34 H 106/75 100 02/29/20 15:16 87 33 H 47/17 100 02/29/20 15:00 84 33 H 116/96 100 02/29/20 14:46 85 32 H 100 02/29/20 14:30 86 34 H 116/96 100 02/29/20 14:15 87 37 H 116/96 97 02/29/20 14:00 86 32 H 118/96 02/29/20 13:46 87 35 H 118/96 98 02/29/20 13:30 82 32 H 107/86 98 02/29/20 13:16 85 34 H 113/92 99 02/29/20 13:00 85 33 H 113/92 100 /29/20 12:45 85 28 H 109/88 02/29/20 12:35 85 108/87 02/29/20 12:30 85 31 H 108/87 02/29/20 12:15 88 30 H 115/91 02/29/20 12:00 87 87 32 H 113/87 02/29/20 11:45 85 33 H 116/94 02/29/20 11:30 85 26 H 112/88 02/29/20 11:15 86 33 H 114/91 100 - Physical Examination Narrative exam: Deferred due to isolation protocol. Cardiac: Positive: Reg Rate and Rhythm - Labs and Meds CBC 02/29/20 03/01/20 Range/Units 11:16 07:55 WBC 15.1 H 14.0 H (4.5-11.0) K/mm3 RBC 3.79 3.77 (3.65-5.03) M/mm3 Hgb 10.1 L 10.0 L (11.8-15.2) gm/dl Hct 32.8 L D 32.3 L (35.5-45.6) % Plt Count 160 99 L (140-440) K/mm3 Comprehensive Metabolic Panel 02/29/20 03/01/20 Range/Units 11:16 07:55 Sodium 140 139 (137-145) mmol/L Potassium 3.5 L 3.7 (3.6-5.0) mmol/L Chloride 111.7 H 111.5 H (98-107) mmol/L Carbon Dioxide 14 L 16 L (22-30) mmol/L BUN 33 H 36 H (9-20) mg/dL Creatinine 1.0 1.0 (0.8-1.3) mg/dL Glucose 180 H 157 H (75-100) mg/dL Calcium 7.8 L 7.9 L (8.4-10.2) mg/dL
--- NOTE | 2020-03-01 11:19 | Progress Note ---
Assessment and Plan 44 y/o male admitted with hypoxemia, fever and brody catheter pain, subsequent cardiac arrest in the ED, resuscitated and intubated, now with hypotension, anion gap metabolic acidosis, acute respiratory failure, hypoglycemia and vtach/vfib, found to have severe left sided heart disease. 1. Pulm-intubated, sedated. Does get tachypnic off sedation but pulls good tidal volumes. Will give a trial of extubation today. Will order precedex for sedation if needed for agitation. Will order PRN Bipap therapy and asked RT to have it ready at bedside. Also, will monitor fluid balance carefully given EF of unknown certainty and cause. 2. CV-Vtach during the code. Shocked and treated with amio. Currently on AMio drip. Will continue this for now. Echo is showing severe systolic heart failure. No further therapy mentioned. They did suggest heart cath once extubated. Cardiology can decide on PO meds once extubated. 3. Heme-Anemia. Etiology unknown. Could be from chronic disease. 4. Renal- Cr not checked today. Hyperchloremic, Metabolic Acidosis 5. Endo-Hold feeds. 6. 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 Attempting to get records from [place]. Continue broad spec abx therapy and agree with HIV labs. COVID negative. Overall prognosis is guarded to poor, hopeful to extubate later today. CCT 31 minutes. Subjective Date of service: 03/01/20 Principal diagnosis: Acute respiratory failure Interval history: No acute events. No fever. On minimal vent settings and will wake up when sedation is off. Currently on Diprovan 10. Has not been tried on PSV trial yet. Objective Vital Signs - 12hr 02/29/20 02/29/20 02/29/20 23:16 23:30 23:45 Temperature Pulse Rate 90 93 H 90 Pulse Rate [ From Monitor] Respiratory 38 H 37 H 36 H Rate Blood Pressure 113/91 113/91 110/79 O2 Sat by Pulse 99 100 100 Oximetry 02/29/20 02/29/20 03/01/20 23:47 23:50 00:00 Temperature 96.0 F L Pulse Rate 89 Pulse Rate [ 81 From Monitor] Respiratory 40 H 34 H Rate Blood Pressure 113/90 O2 Sat by Pulse 100 Oximetry 03/01/20 03/01/20 03/01/20 00:15 00:30 00:31 Temperature Pulse Rate 89 91 H 92 H Pulse Rate [ From Monitor] Respiratory 35 H 31 H Rate Blood Pressure 114/88 123/96 123/96 O2 Sat by Pulse 99 99 100 Oximetry 03/01/20 03/01/20 03/01/20 00:45 01:00 01:15 Temperature Pulse Rate 92 H 90 94 H Pulse Rate [ From Monitor] Respiratory 38 H 34 H 28 H Rate Blood Pressure 115/90 113/88 120/90 O2 Sat by Pulse 99 99 99 Oximetry 03/01/20 03/01/20 03/01/20 01:30 01:45 02:00 Temperature Pulse Rate 89 88 89 Pulse Rate [ From Monitor] Respiratory 35 H 35 H 35 H Rate Blood Pressure 110/80 111/89 109/86 O2 Sat by Pulse 99 99 99 Oximetry 03/01/20 03/01/20 03/01/20 02:15 02:30 02:45 Temperature Pulse Rate 85 83 83 Pulse Rate [ From Monitor] Respiratory 34 H 33 H 33 H Rate Blood Pressure 106/81 99/79 108/81 O2 Sat by Pulse 99 98 100 Oximetry 03/01/20 03/01/20 03/01/20 03:00 03:15 03:30 Temperature Pulse Rate 91 H 92 H 92 H Pulse Rate [ From Monitor] Respiratory 38 H 36 H 38 H Rate Blood Pressure 120/96 118/95 119/89 O2 Sat by Pulse 99 99 100 Oximetry 03/01/20 03/01/20 03/01/20 03:45 04:00 04:15 Temperature 96.1 F L Pulse Rate 90 89 86 Pulse Rate [ 83 From Monitor] Respiratory 35 H 35 H 32 H Rate Blood Pressure 115/83 111/87 112/86 O2 Sat by Pulse 99 100 99 Oximetry 03/01/20 03/01/20 03/01/20 04:30 04:45 05:00 Temperature Pulse Rate 86 85 83 Pulse Rate [ From Monitor] Respiratory 35 H 34 H 33 H Rate Blood Pressure 107/83 106/82 105/80 O2 Sat by Pulse 97 99 98 Oximetry 03/01/20 03/01/20 03/01/20 05:16 05:30 05:45 Temperature Pulse Rate 89 94 H 93 H Pulse Rate [ From Monitor] Respiratory 36 H 37 H 37 H Rate Blood Pressure 105/80 118/88 117/89 O2 Sat by Pulse 99 100 100 Oximetry 03/01/20 03/01/20 03/01/20 06:00 06:15 06:30 Temperature Pulse Rate 91 H 90 79 Pulse Rate [ From Monitor] Respiratory 36 H 36 H 26 H Rate Blood Pressure 117/89 114/89 114/89 O2 Sat by Pulse 99 98 99 Oximetry 03/01/20 03/01/20 03/01/20 06:45 07:00 07:15 Temperature Pulse Rate 83 80 80 Pulse Rate [ From Monitor] Respiratory 31 H 30 H 30 H Rate Blood Pressure 99/74 96/73 101/78 O2 Sat by Pulse 100 98 Oximetry 03/01/20 03/01/20 03/01/20 07:30 07:45 08:00 Temperature 98.1 F Pulse Rate 79 77 79 Pulse Rate [ 81 From Monitor] Respiratory 30 H 29 H 21 Rate Blood Pressure 95/75 105/77 100/78 O2 Sat by Pulse 99 99 99 Oximetry 03/01/20 03/01/20 03/01/20 08:15 08:30 08:45 Temperature Pulse Rate 83 82 80 Pulse Rate [ From Monitor] Respiratory 31 H 31 H 29 H Rate Blood Pressure 105/84 103/81 O2 Sat by Pulse 99 99 98 Oximetry 03/01/20 03/01/20 03/01/20 09:00 09:15 09:27 Temperature Pulse Rate 80 79 86 Pulse Rate [ From Monitor] Respiratory 31 H 31 H Rate Blood Pressure 108/83 101/80 112/85 O2 Sat by Pulse 100 99 100 Oximetry 03/01/20 03/01/20 03/01/20 09:30 09:45 10:00 Temperature Pulse Rate 86 83 83 Pulse Rate [ From Monitor] Respiratory 29 H 33 H 33 H Rate Blood Pressure 112/85 121/94 123/96 O2 Sat by Pulse 100 Oximetry Constitutional: agitated, appears uncomfortable, other (on vent, critically ill) Eyes: icteric, injected ENT: other (orally intubated with poor dentition) Neck: supple, no JVD Effort: mildly labored Ascultation: Right: rhonchi (upper lobe), Bilateral: rales Percussion: Bilateral: not dull Cardiovascular: other (sinus tach) Gastrointestinal: normoactive bowel sounds, soft Extremities: other (per nursing report, decubitus ulcer) Neurologic: unable to assess CBC and BMP: 03/01/20 07:55 03/01/20 07:55 ABG, PT/INR, D-dimer: ABG ABG pH 7.288 pH Units (7.350-7.450) L 03/01/20 03:46 POC ABG pCO2 22.5 mmHg (32.0-48.0) L 02/29/20 05:17 ABG pCO2 24.9 mm Hg 03/01/20 03:46 POC ABG pO2 119.7 mmHg (83-108) H 02/29/20 05:17 ABG pO2 85.2 mm Hg (80.0-90.0) 03/01/20 03:46 POC ABG HCO3 11.8 02/29/20 05:17 ABG O2 Saturation 95.6 % (95.0-99.0) 03/01/20 03:46 PT/INR, D-dimer PT 17.9 Sec. (12.2-14.9) H 02/26/20 04:00 INR 1.46 (0.87-1.13) H 02/26/20 04:00 D-Dimer 3251.26 ng/mlDDU (0-234) H 02/25/20 03:37 Abnormal lab findings: Abnormal Labs 02/25/20 02/25/20 02/25/20 00:46 00:46 00:46 WBC RBC 3.22 L Hgb 8.9 L Hct 28.5 L MCH MCHC 31 L RDW 24.8 H Plt Count 452 H Lymph % (Auto) 9.1 L Lymph # (Auto) 0.9 L Seg Neutrophils % 86.6 H Seg Neuts % (Manual) Lymphocytes % (Manual) Nucleated RBC % Seg Neutrophils # 8.9 H Seg Neutrophils # Man Lymphocytes # (Manual) PT INR D-Dimer ABG pH POC ABG pCO2 POC ABG pO2 ABG pO2 ABG HCO3 ABG O2 Saturation ABG Base Excess ABG Hemoglobin Oxyhemoglobin Carboxyhemoglobin Sodium Potassium Chloride Carbon Dioxide BUN Glucose POC Glucose Lactic Acid 2.10 H* Calcium 8.3 L Ferritin AST ALT < 5 L Alkaline Phosphatase 187 H Lactate Dehydrogenase Total Creatine Kinase 28 L CK-MB (CK-2) Rel Index 8.5 H Troponin T 0.190 H* C-Reactive Protein Total Protein Albumin 2.5 L LDL Cholesterol Direct 45 L HDL Cholesterol 32 L Urine WBC (Auto) Vancomycin Trough Crossmatch 02/25/20 02/25/20 02/25/20 02:32 03:37 03:37 WBC RBC Hgb Hct MCH MCHC RDW Plt Count Lymph % (Auto) Lymph # (Auto) Seg Neutrophils % Seg Neuts % (Manual) Lymphocytes % (Manual) Nucleated RBC % Seg Neutrophils # Seg Neutrophils # Man Lymphocytes # (Manual) PT INR D-Dimer 3251.26 H ABG pH POC ABG pCO2 POC ABG pO2 ABG pO2 ABG HCO3 ABG O2 Saturation ABG Base Excess ABG Hemoglobin Oxyhemoglobin Carboxyhemoglobin Sodium Potassium Chloride Carbon Dioxide BUN Glucose 144 H POC Glucose Lactic Acid Calcium Ferritin AST ALT Alkaline Phosphatase Lactate Dehydrogenase 234 H Total Creatine Kinase CK-MB (CK-2) Rel Index Troponin T C-Reactive Protein 8.80 H Total Protein Albumin LDL Cholesterol Direct HDL Cholesterol Urine WBC (Auto) 68.0 H Vancomycin Trough Crossmatch 02/25/20 02/25/20 02/25/20 03:37 05:36 06:33 WBC RBC Hgb Hct MCH MCHC RDW Plt Count Lymph % (Auto) Lymph # (Auto) Seg Neutrophils % Seg Neuts % (Manual) Lymphocytes % (Manual) Nucleated RBC % Seg Neutrophils # Seg Neutrophils # Man Lymphocytes # (Manual) PT INR D-Dimer ABG pH POC ABG pCO2 POC ABG pO2 ABG pO2 ABG HCO3 ABG O2 Saturation ABG Base Excess ABG Hemoglobin Oxyhemoglobin Carboxyhemoglobin Sodium Potassium Chloride Carbon Dioxide BUN Glucose POC Glucose 234 H Lactic Acid Calcium Ferritin 450.5 H AST ALT Alkaline Phosphatase Lactate Dehydrogenase Total Creatine Kinase CK-MB (CK-2) Rel Index Troponin T 0.187 H* C-Reactive Protein Total Protein Albumin LDL Cholesterol Direct HDL Cholesterol Urine WBC (Auto) Vancomycin Trough Crossmatch 02/25/20 02/25/20 02/25/20 09:30 13:10 16:27 WBC RBC Hgb Hct MCH MCHC RDW Plt Count Lymph % (Auto) Lymph # (Auto) Seg Neutrophils % Seg Neuts % (Manual) Lymphocytes % (Manual) Nucleated RBC % Seg Neutrophils # Seg Neutrophils # Man Lymphocytes # (Manual) PT INR D-Dimer ABG pH 7.149 L* 7.256 L POC ABG pCO2 POC ABG pO2 ABG pO2 165.3 H 64.5 L ABG HCO3 17.2 L 17.4 L ABG O2 Saturation 85.2 L ABG Base Excess -11.0 L -9.0 L ABG Hemoglobin 7.5 L 8.4 L Oxyhemoglobin 83.4 L Carboxyhemoglobin Sodium Potassium Chloride Carbon Dioxide BUN Glucose POC Glucose Lactic Acid 3.20 H* Calcium Ferritin AST ALT Alkaline Phosphatase Lactate Dehydrogenase Total Creatine Kinase CK-MB (CK-2) Rel Index Troponin T C-Reactive Protein Total Protein Albumin LDL Cholesterol Direct HDL Cholesterol Urine WBC (Auto) Vancomycin Trough Crossmatch 02/26/20 02/26/20 02/26/20 04:00 04:00 04:00 WBC 20.4 H RBC 2.61 L Hgb 7.0 L Hct 24.5 L MCH 27 L MCHC 29 L RDW 25.1 H Plt Count Lymph % (Auto) Lymph # (Auto) Seg Neutrophils % Seg Neuts % (Manual) 92.0 H Lymphocytes % (Manual) 4.0 L Nucleated RBC % Seg Neutrophils # Seg Neutrophils # Man 18.8 H Lymphocytes # (Manual) 0.8 L PT 17.9 H INR 1.46 H D-Dimer ABG pH POC ABG pCO2 POC ABG pO2 ABG pO2 ABG HCO3 ABG O2 Saturation ABG Base Excess ABG Hemoglobin Oxyhemoglobin Carboxyhemoglobin Sodium Potassium Chloride 111.1 H Carbon Dioxide 14 L D BUN 29 H Glucose 57 L POC Glucose Lactic Acid Calcium 7.8 L Ferritin AST ALT Alkaline Phosphatase Lactate Dehydrogenase Total Creatine Kinase CK-MB (CK-2) Rel Index Troponin T C-Reactive Protein Total Protein Albumin LDL Cholesterol Direct HDL Cholesterol Urine WBC (Auto) Vancomycin Trough Crossmatch 02/26/20 02/26/20 02/26/20 04:20 07:13 09:20 WBC RBC Hgb Hct MCH MCHC RDW Plt Count Lymph % (Auto) Lymph # (Auto) Seg Neutrophils % Seg Neuts % (Manual) Lymphocytes % (Manual) Nucleated RBC % Seg Neutrophils # Seg Neutrophils # Man Lymphocytes # (Manual) PT INR D-Dimer ABG pH 7.269 L POC ABG pCO2 POC ABG pO2 ABG pO2 236.1 H ABG HCO3 13.9 L ABG O2 Saturation 99.3 H ABG Base Excess -11.9 L ABG Hemoglobin 7.2 L Oxyhemoglobin Carboxyhemoglobin Sodium Potassium Chloride Carbon Dioxide BUN Glucose POC Glucose 52 L Lactic Acid Calcium Ferritin AST ALT Alkaline Phosphatase Lactate Dehydrogenase Total Creatine Kinase CK-MB (CK-2) Rel Index Troponin T C-Reactive Protein Total Protein Albumin LDL Cholesterol Direct HDL Cholesterol Urine WBC (Auto) Vancomycin Trough Crossmatch See Detail 02/27/20 02/27/20 02/27/20 04:59 05:40 07:30 WBC 16.6 H RBC 3.07 L Hgb 8.4 L Hct 27.4 L MCH MCHC 31 L RDW 24.4 H Plt Count Lymph % (Auto) Lymph # (Auto) Seg Neutrophils % Seg Neuts % (Manual) Lymphocytes % (Manual) Nucleated RBC % Seg Neutrophils # Seg Neutrophils # Man Lymphocytes # (Manual) PT INR D-Dimer ABG pH 7.306 L POC ABG pCO2 POC ABG pO2 ABG pO2 149.6 H ABG HCO3 17.0 L ABG O2 Saturation ABG Base Excess -8.5 L ABG Hemoglobin 7.8 L Oxyhemoglobin Carboxyhemoglobin Sodium Potassium Chloride Carbon Dioxide BUN Glucose POC Glucose 64 L Lactic Acid Calcium Ferritin AST ALT Alkaline Phosphatase Lactate Dehydrogenase Total Creatine Kinase CK-MB (CK-2) Rel Index Troponin T C-Reactive Protein Total Protein Albumin LDL Cholesterol Direct HDL Cholesterol Urine WBC (Auto) Vancomycin Trough Crossmatch 02/27/20 02/27/20 02/27/20 07:30 12:07 18:07 WBC RBC Hgb Hct MCH MCHC RDW Plt Count Lymph % (Auto) Lymph # (Auto) Seg Neutrophils % Seg Neuts % (Manual) Lymphocytes % (Manual) Nucleated RBC % Seg Neutrophils # Seg Neutrophils # Man Lymphocytes # (Manual) PT INR D-Dimer ABG pH POC ABG pCO2 POC ABG pO2 ABG pO2 ABG HCO3 ABG O2 Saturation ABG Base Excess ABG Hemoglobin Oxyhemoglobin Carboxyhemoglobin Sodium 146 H Potassium Chloride 115.0 H Carbon Dioxide 17 L BUN 29 H Glucose 72 L POC Glucose 116 H 63 L Lactic Acid Calcium 7.9 L Ferritin AST 118 H ALT Alkaline Phosphatase 273 H Lactate Dehydrogenase Total Creatine Kinase CK-MB (CK-2) Rel Index Troponin T C-Reactive Protein Total Protein 5.3 L D Albumin 2.0 L LDL Cholesterol Direct HDL Cholesterol Urine WBC (Auto) Vancomycin Trough Crossmatch 02/27/20 02/28/20 02/28/20 23:41 04:30 05:30 WBC 12.5 H RBC 2.99 L Hgb 8.0 L Hct 26.6 L MCH 27 L MCHC 30 L RDW 24.8 H Plt Count Lymph % (Auto) 7.5 L Lymph # (Auto) 0.9 L Seg Neutrophils % 86.9 H Seg Neuts % (Manual) Lymphocytes % (Manual) Nucleated RBC % Seg Neutrophils # 10.8 H Seg Neutrophils # Man Lymphocytes # (Manual) PT INR D-Dimer ABG pH 7.240 L POC ABG pCO2 POC ABG pO2 ABG pO2 ABG HCO3 ABG O2 Saturation ABG Base Excess ABG Hemoglobin 9.0 L Oxyhemoglobin Carboxyhemoglobin Sodium Potassium Chloride Carbon Dioxide BUN Glucose POC Glucose 131 H Lactic Acid Calcium Ferritin AST ALT Alkaline Phosphatase Lactate Dehydrogenase Total Creatine Kinase CK-MB (CK-2) Rel Index Troponin T C-Reactive Protein Total Protein Albumin LDL Cholesterol Direct HDL Cholesterol Urine WBC (Auto) Vancomycin Trough Crossmatch 02/28/20 02/28/20 02/28/20 06:00 09:00 17:25 WBC RBC Hgb Hct MCH MCHC RDW Plt Count Lymph % (Auto) Lymph # (Auto) Seg Neutrophils % Seg Neuts % (Manual) Lymphocytes % (Manual) Nucleated RBC % Seg Neutrophils # Seg Neutrophils # Man Lymphocytes # (Manual) PT INR D-Dimer ABG pH POC ABG pCO2 POC ABG pO2 ABG pO2 ABG HCO3 ABG O2 Saturation ABG Base Excess ABG Hemoglobin Oxyhemoglobin Carboxyhemoglobin Sodium Potassium Chloride Carbon Dioxide BUN Glucose POC Glucose 121 H 61 L Lactic Acid Calcium Ferritin AST ALT Alkaline Phosphatase Lactate Dehydrogenase Total Creatine Kinase CK-MB (CK-2) Rel Index Troponin T C-Reactive Protein Total Protein Albumin LDL Cholesterol Direct HDL Cholesterol Urine WBC (Auto) Vancomycin Trough 29.0 H Crossmatch 02/28/20 02/29/20 02/29/20 Unknown 04:32 05:17 WBC RBC Hgb Hct MCH MCHC RDW Plt Count Lymph % (Auto) Lymph # (Auto) Seg Neutrophils % Seg Neuts % (Manual) Lymphocytes % (Manual) Nucleated RBC % Seg Neutrophils # Seg Neutrophils # Man Lymphocytes # (Manual) PT INR D-Dimer ABG pH POC ABG pCO2 22.5 L POC ABG pO2 119.7 H ABG pO2 ABG HCO3 ABG O2 Saturation ABG Base Excess ABG Hemoglobin 10.5 L Oxyhemoglobin Carboxyhemoglobin 0.3 L Sodium Potassium Chloride 114.7 H Carbon Dioxide 14 L BUN 30 H Glucose POC Glucose Lactic Acid Calcium 7.8 L Ferritin AST 193 H ALT Alkaline Phosphatase 354 H Lactate Dehydrogenase Total Creatine Kinase CK-MB (CK-2) Rel Index Troponin T C-Reactive Protein Total Protein 5.6 L Albumin 2.0 L LDL Cholesterol Direct HDL Cholesterol Urine WBC (Auto) Vancomycin Trough Crossmatch 02/29/20 02/29/20 02/29/20 05:29 11:16 11:16 WBC 15.1 H RBC Hgb 10.1 L Hct 32.8 L D MCH 27 L MCHC 31 L RDW 25.2 H Plt Count Lymph % (Auto) Lymph # (Auto) Seg Neutrophils % Seg Neuts % (Manual) 98.0 H Lymphocytes % (Manual) 1.0 L Nucleated RBC % 5.0 H Seg Neutrophils # Seg Neutrophils # Man 14.8 H Lymphocytes # (Manual) 0.2 L PT INR D-Dimer ABG pH POC ABG pCO2 POC ABG pO2 ABG pO2 ABG HCO3 ABG O2 Saturation ABG Base Excess ABG Hemoglobin Oxyhemoglobin Carboxyhemoglobin Sodium Potassium 3.5 L Chloride 111.7 H Carbon Dioxide 14 L BUN 33 H Glucose 180 H POC Glucose 125 H Lactic Acid Calcium 7.8 L Ferritin AST ALT Alkaline Phosphatase Lactate Dehydrogenase Total Creatine Kinase CK-MB (CK-2) Rel Index Troponin T C-Reactive Protein Total Protein Albumin LDL Cholesterol Direct HDL Cholesterol Urine WBC (Auto) Vancomycin Trough Crossmatch 02/29/20 02/29/20 02/29/20 12:55 17:53 23:38 WBC RBC Hgb Hct MCH MCHC RDW Plt Count Lymph % (Auto) Lymph # (Auto) Seg Neutrophils % Seg Neuts % (Manual) Lymphocytes % (Manual) Nucleated RBC % Seg Neutrophils # Seg Neutrophils # Man Lymphocytes # (Manual) PT INR D-Dimer ABG pH POC ABG pCO2 POC ABG pO2 ABG pO2 ABG HCO3 ABG O2 Saturation ABG Base Excess ABG Hemoglobin Oxyhemoglobin Carboxyhemoglobin Sodium Potassium Chloride Carbon Dioxide BUN Glucose POC Glucose 134 H 145 H 127 H Lactic Acid Calcium Ferritin AST ALT Alkaline Phosphatase Lactate Dehydrogenase Total Creatine Kinase CK-MB (CK-2) Rel Index Troponin T C-Reactive Protein Total Protein Albumin LDL Cholesterol Direct HDL Cholesterol Urine WBC (Auto) Vancomycin Trough Crossmatch 03/01/20 03/01/20 03/01/20 03:46 05:44 07:55 WBC 14.0 H RBC Hgb 10.0 L Hct 32.3 L MCH 27 L MCHC 31 L RDW 25.4 H Plt Count 99 L Lymph % (Auto) Lymph # (Auto) Seg Neutrophils % Seg Neuts % (Manual) Lymphocytes % (Manual) Nucleated RBC % Seg Neutrophils # Seg Neutrophils # Man Lymphocytes # (Manual) PT INR D-Dimer ABG pH 7.288 L POC ABG pCO2 POC ABG pO2 ABG pO2 ABG HCO3 11.7 L ABG O2 Saturation ABG Base Excess -13.3 L ABG Hemoglobin Oxyhemoglobin Carboxyhemoglobin Sodium Potassium Chloride Carbon Dioxide BUN Glucose POC Glucose 177 H Lactic Acid Calcium Ferritin AST ALT Alkaline Phosphatase Lactate Dehydrogenase Total Creatine Kinase CK-MB (CK-2) Rel Index Troponin T C-Reactive Protein Total Protein Albumin LDL Cholesterol Direct HDL Cholesterol Urine WBC (Auto) Vancomycin Trough Crossmatch 03/01/20 07:55 WBC RBC Hgb Hct MCH MCHC RDW Plt Count Lymph % (Auto) Lymph # (Auto) Seg Neutrophils % Seg Neuts % (Manual) Lymphocytes % (Manual) Nucleated RBC % Seg Neutrophils # Seg Neutrophils # Man Lymphocytes # (Manual) PT INR D-Dimer ABG pH POC ABG pCO2 POC ABG pO2 ABG pO2 ABG HCO3 ABG O2 Saturation ABG Base Excess ABG Hemoglobin Oxyhemoglobin Carboxyhemoglobin Sodium Potassium Chloride 111.5 H Carbon Dioxide 16 L BUN 36 H Glucose 157 H POC Glucose Lactic Acid Calcium 7.9 L Ferritin AST ALT Alkaline Phosphatase Lactate Dehydrogenase Total Creatine Kinase CK-MB (CK-2) Rel Index Troponin T C-Reactive Protein Total Protein Albumin LDL Cholesterol Direct HDL Cholesterol Urine WBC (Auto) Vancomycin Trough Crossmatch
[2020-03-01] MEDS: DEXMEDETOMIDINE 200 MCG in SODIUM CHLORIDE 0.9% 48 ML IV SCH ×2 (12:31→20:07)
[2020-03-01] MEDS: AMIODARONE 200 MG TAB PO SCH (12:32)
[2020-03-01 13:33] LABS: HIV-1 Antibody Differentiation SEE SCANNED RESULT; HIV-2 Antibody Differentiation SEE SCANNED RESULT
[2020-03-02] MEDS: fentaNYL 100 MCG/2 ML INJ IV PRN ×3 (01:07→07:54)
[2020-03-02] MEDS: DEXMEDETOMIDINE 200 MCG in SODIUM CHLORIDE 0.9% 48 ML IV SCH ×2 (02:22→07:46)
--- NOTE | 2020-03-02 07:37 | Progress Note ---
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 Negligible Minimum of two criteria Yes Muscle Mass Mild Depletion (non-severe) Fluid Accumulation Moderate to Severe (severe) #3 Nutrition Diagnosis Increased nutrient needs ( specify in comment below) Diagnosis Progress(for reassessment Continues documentation) #2 Nutrition Diagnosis Inadequate oral intake Diagnosis Progress(for reassessment Continues documentation) #1 Nutrition Diagnosis Malnutrition Diagnosis Progress(for reassessment Continues documentation) Is patient on ventilator? Yes Is Patient Ambulatory and/or Out of Bed No REE-([facility]-confined to bed) [phone] Kcal/Kg value to use for calculation 42 Approximate Energy Requirements Using 1905 kcal/Kg Calculation Used for Recommendations Kcal/kg Additional Notes Protein: 54-90g (1.2-2g/kg) Fluid: 1ml/kcal Nutrition Intervention Change Diet Order: Continue TF Nutrition Support: Osmolite 1.5 at 50ml/hr Flush 150ml q4h Kcal 1,800 Protein (gm) 75 Fluid (mL) 914 Goal #1 TF tolerance Goal #2 Meet at least 100% of energy and protein needs via TF. Goal #3 Wound healing Goal #4 Wt maintenance or wt gain Anticipated Discharge Needs: unable to determine at this time Follow-Up By: 03/03/20 Additional Comments F/U stable TF and plan of care
[2020-03-02] MEDS ORDERED: FUROSEMIDE 20 MG/2 ML INJ IV SCH (08:00)
[2020-03-02] MEDS: FAMOTIDINE 20 MG TAB PO SCH ×2 (09:18→22:04)
[2020-03-02] MEDS: ETHAMBUTOL 400 MG TAB PO SCH (09:19)
[2020-03-02] MEDS: PYRIDOXINE 50 MG TAB PO SCH (09:19)
[2020-03-02] MEDS: ISONIAZID 300 MG TAB PO SCH (09:19)
[2020-03-02] MEDS: rifAMPin 300 MG CAP PO SCH (09:20)
[2020-03-02] MEDS: PYRAZINAMIDE 500 MG TAB PO SCH (09:20)
[2020-03-02] MEDS: SENNOSIDES/DOCUSATE SODIUM 8.6/50 MG TAB PO SCH ×2 (09:20→22:04)
[2020-03-02] MEDS: AMIODARONE 200 MG TAB PO SCH (09:20)
[2020-03-02] MEDS: HYDROmorphone 2 MG/1 ML INJ IV PRN ×5 (09:38→22:04)
--- NOTE | 2020-03-02 09:50 | Progress Note ---
Assessment and Plan 44 y/o male admitted with hypoxemia, fever and brody catheter pain, subsequent cardiac arrest in the ED, resuscitated and intubated, now with hypotension, anion gap metabolic acidosis, acute respiratory failure, hypoglycemia and vtach/vfib, found to have severe left sided heart disease. 1. Pulm-Successful extubation. NO repeat gas as of yet, as clinically not needed. Will continue bipap. Gave 20 of IV lasix now. Patient also takes a significant amount of pain medication at home. Will start dilaudid IV here. 2. CV-severe systolic heart failure. Giving lasix today. BP stable, renal function stable. Cardiology still following. Switching to oral amio 3. Heme-Anemia. Etiology unknown. Could be from chronic disease. 4. Renal- No labs today. 5. Endo-restarted feeds via NG/Dobb laquita tube 6. 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 Attempting to get records from [place]. Continue broad spec abx therapy and agree with HIV labs. COVID negative. Will keep in ICU for now given tenuous respiratory state. CCT 31 minutes. Subjective Date of service: 03/02/20 Principal diagnosis: Acute respiratory failure Interval history: Extubated on yesterday but unfortunately still requiring bipap for tachypnea. Sats are good. Fluid status is grossly positive. No fever. Per RT mental status is worse today. Remains on Precedex. Objective Vital Signs - 12hr 03/01/20 03/01/20 03/01/20 22:00 22:07 22:15 Temperature Pulse Rate 91 H 92 H 82 Pulse Rate [ From Monitor] Respiratory 42 H 30 H 31 H Rate Blood Pressure 120/94 120/94 109/83 O2 Sat by Pulse 98 99 98 Oximetry 03/01/20 03/01/20 03/01/20 22:30 22:45 23:00 Temperature Pulse Rate 91 H 82 90 Pulse Rate [ From Monitor] Respiratory 40 H 32 H 44 H Rate Blood Pressure 120/94 105/81 115/88 O2 Sat by Pulse 100 100 Oximetry 03/01/20 03/01/20 03/01/20 23:11 23:15 23:30 Temperature Pulse Rate 85 82 Pulse Rate [ From Monitor] Respiratory 50 H 38 H 36 H Rate Blood Pressure 111/85 98/76 O2 Sat by Pulse 98 97 Oximetry 03/01/20 03/02/20 03/02/20 23:45 00:00 00:15 Temperature 97.0 F L Pulse Rate 78 78 78 Pulse Rate [ 82 From Monitor] Respiratory 36 H 36 H 38 H Rate Blood Pressure 103/78 100/77 103/76 O2 Sat by Pulse 98 98 100 Oximetry 03/02/20 03/02/20 03/02/20 00:30 00:45 01:00 Temperature Pulse Rate 80 80 88 Pulse Rate [ From Monitor] Respiratory 35 H 40 H 33 H Rate Blood Pressure 111/84 110/84 118/88 O2 Sat by Pulse 99 98 92 Oximetry 03/02/20 03/02/20 03/02/20 01:07 01:15 01:30 Temperature Pulse Rate 79 77 Pulse Rate [ From Monitor] Respiratory 40 H 37 H 34 H Rate Blood Pressure 100/78 101/76 O2 Sat by Pulse 99 98 Oximetry 03/02/20 03/02/20 03/02/20 01:45 02:00 02:15 Temperature Pulse Rate 76 77 77 Pulse Rate [ From Monitor] Respiratory 34 H 28 H 33 H Rate Blood Pressure 100/76 101/76 107/80 O2 Sat by Pulse 98 98 98 Oximetry 03/02/20 03/02/20 03/02/20 02:19 02:30 02:45 Temperature Pulse Rate 86 90 80 Pulse Rate [ From Monitor] Respiratory 47 H 40 H 32 H Rate Blood Pressure 107/80 119/93 107/85 O2 Sat by Pulse 98 97 98 Oximetry 03/02/20 03/02/20 03/02/20 03:00 03:15 03:30 Temperature Pulse Rate 81 82 81 Pulse Rate [ From Monitor] Respiratory 33 H 32 H 34 H Rate Blood Pressure 103/81 109/84 105/82 O2 Sat by Pulse 98 98 99 Oximetry 03/02/20 03/02/20 03/02/20 03:45 04:00 04:15 Temperature Pulse Rate 83 86 91 H Pulse Rate [ 85 From Monitor] Respiratory 42 H 33 H 46 H Rate Blood Pressure 103/78 119/91 117/90 O2 Sat by Pulse 97 97 97 Oximetry 03/02/20 03/02/20 03/02/20 04:30 04:45 04:47 Temperature Pulse Rate 90 89 Pulse Rate [ From Monitor] Respiratory 47 H 46 H 45 H Rate Blood Pressure 120/89 118/87 O2 Sat by Pulse 98 90 Oximetry 03/02/20 03/02/20 03/02/20 05:00 05:15 05:30 Temperature Pulse Rate 82 80 77 Pulse Rate [ From Monitor] Respiratory 38 H 36 H 35 H Rate Blood Pressure 107/81 99/77 93/72 O2 Sat by Pulse 95 97 Oximetry 03/02/20 03/02/20 03/02/20 05:45 05:47 06:00 Temperature 96.7 F L Pulse Rate 79 77 Pulse Rate [ From Monitor] Respiratory 30 H 30 H 30 H Rate Blood Pressure 98/77 105/78 O2 Sat by Pulse 96 97 Oximetry 03/02/20 03/02/20 03/02/20 06:15 06:30 06:45 Temperature Pulse Rate 79 79 78 Pulse Rate [ From Monitor] Respiratory 32 H 29 H 31 H Rate Blood Pressure 100/76 98/75 99/74 O2 Sat by Pulse 96 96 97 Oximetry 03/02/20 03/02/20 03/02/20 07:00 07:15 07:30 Temperature Pulse Rate 78 78 78 Pulse Rate [ From Monitor] Respiratory 30 H 32 H 30 H Rate Blood Pressure 98/74 104/78 105/81 O2 Sat by Pulse 96 97 97 Oximetry 03/02/20 03/02/20 03/02/20 07:45 07:54 08:00 Temperature 96.9 F L Pulse Rate 77 83 Pulse Rate [ 84 From Monitor] Respiratory 35 H 44 H 32 H Rate Blood Pressure 112/85 106/81 O2 Sat by Pulse 98 97 Oximetry 03/02/20 03/02/20 03/02/20 08:15 08:30 08:55 Temperature Pulse Rate 79 80 76 Pulse Rate [ From Monitor] Respiratory 27 H 41 H 36 H Rate Blood Pressure 100/78 104/79 102/76 O2 Sat by Pulse 98 97 99 Oximetry 03/02/20 09:38 Temperature Pulse Rate Pulse Rate [ From Monitor] Respiratory 45 H Rate Blood Pressure O2 Sat by Pulse Oximetry Constitutional: agitated, appears uncomfortable, other (on vent, critically ill) Eyes: icteric, injected ENT: other (orally intubated with poor dentition) Neck: supple, no JVD Effort: mildly labored Ascultation: Right: rhonchi (upper lobe), Bilateral: rales Percussion: Bilateral: not dull Cardiovascular: other (sinus tach) Gastrointestinal: normoactive bowel sounds, soft Extremities: other (per nursing report, decubitus ulcer) Neurologic: unable to assess CBC and BMP: 03/01/20 07:55 03/01/20 07:55 ABG, PT/INR, D-dimer: ABG ABG pH 7.288 pH Units (7.350-7.450) L 03/01/20 03:46 POC ABG pCO2 22.5 mmHg (32.0-48.0) L 02/29/20 05:17 ABG pCO2 24.9 mm Hg 03/01/20 03:46 POC ABG pO2 119.7 mmHg (83-108) H 02/29/20 05:17 ABG pO2 85.2 mm Hg (80.0-90.0) 03/01/20 03:46 POC ABG HCO3 11.8 02/29/20 05:17 ABG O2 Saturation 95.6 % (95.0-99.0) 03/01/20 03:46 PT/INR, D-dimer PT 17.9 Sec. (12.2-14.9) H 02/26/20 04:00 INR 1.46 (0.87-1.13) H 02/26/20 04:00 D-Dimer 3251.26 ng/mlDDU (0-234) H 02/25/20 03:37 Abnormal lab findings: Abnormal Labs 02/25/20 02/25/20 02/25/20 00:46 00:46 00:46 WBC RBC 3.22 L Hgb 8.9 L Hct 28.5 L MCH MCHC 31 L RDW 24.8 H Plt Count 452 H Lymph % (Auto) 9.1 L Lymph # (Auto) 0.9 L Seg Neutrophils % 86.6 H Seg Neuts % (Manual) Lymphocytes % (Manual) Nucleated RBC % Seg Neutrophils # 8.9 H Seg Neutrophils # Man Lymphocytes # (Manual) PT INR D-Dimer ABG pH POC ABG pCO2 POC ABG pO2 ABG pO2 ABG HCO3 ABG O2 Saturation ABG Base Excess ABG Hemoglobin Oxyhemoglobin Carboxyhemoglobin Sodium Potassium Chloride Carbon Dioxide BUN Glucose POC Glucose Lactic Acid 2.10 H* Calcium 8.3 L Ferritin AST ALT < 5 L Alkaline Phosphatase 187 H Lactate Dehydrogenase Total Creatine Kinase 28 L CK-MB (CK-2) Rel Index 8.5 H Troponin T 0.190 H* C-Reactive Protein Total Protein Albumin 2.5 L LDL Cholesterol Direct 45 L HDL Cholesterol 32 L Urine WBC (Auto) Vancomycin Trough Crossmatch 02/25/20 02/25/20 02/25/20 02:32 03:37 03:37 WBC RBC Hgb Hct MCH MCHC RDW Plt Count Lymph % (Auto) Lymph # (Auto) Seg Neutrophils % Seg Neuts % (Manual) Lymphocytes % (Manual) Nucleated RBC % Seg Neutrophils # Seg Neutrophils # Man Lymphocytes # (Manual) PT INR D-Dimer 3251.26 H ABG pH POC ABG pCO2 POC ABG pO2 ABG pO2 ABG HCO3 ABG O2 Saturation ABG Base Excess ABG Hemoglobin Oxyhemoglobin Carboxyhemoglobin Sodium Potassium Chloride Carbon Dioxide BUN Glucose 144 H POC Glucose Lactic Acid Calcium Ferritin AST ALT Alkaline Phosphatase Lactate Dehydrogenase 234 H Total Creatine Kinase CK-MB (CK-2) Rel Index Troponin T C-Reactive Protein 8.80 H Total Protein Albumin LDL Cholesterol Direct HDL Cholesterol Urine WBC (Auto) 68.0 H Vancomycin Trough Crossmatch 02/25/20 02/25/20 02/25/20 03:37 05:36 06:33 WBC RBC Hgb Hct MCH MCHC RDW Plt Count Lymph % (Auto) Lymph # (Auto) Seg Neutrophils % Seg Neuts % (Manual) Lymphocytes % (Manual) Nucleated RBC % Seg Neutrophils # Seg Neutrophils # Man Lymphocytes # (Manual) PT INR D-Dimer ABG pH POC ABG pCO2 POC ABG pO2 ABG pO2 ABG HCO3 ABG O2 Saturation ABG Base Excess ABG Hemoglobin Oxyhemoglobin Carboxyhemoglobin Sodium Potassium Chloride Carbon Dioxide BUN Glucose POC Glucose 234 H Lactic Acid Calcium Ferritin 450.5 H AST ALT Alkaline Phosphatase Lactate Dehydrogenase Total Creatine Kinase CK-MB (CK-2) Rel Index Troponin T 0.187 H* C-Reactive Protein Total Protein Albumin LDL Cholesterol Direct HDL Cholesterol Urine WBC (Auto) Vancomycin Trough Crossmatch 02/25/20 02/25/20 02/25/20 09:30 13:10 16:27 WBC RBC Hgb Hct MCH MCHC RDW Plt Count Lymph % (Auto) Lymph # (Auto) Seg Neutrophils % Seg Neuts % (Manual) Lymphocytes % (Manual) Nucleated RBC % Seg Neutrophils # Seg Neutrophils # Man Lymphocytes # (Manual) PT INR D-Dimer ABG pH 7.149 L* 7.256 L POC ABG pCO2 POC ABG pO2 ABG pO2 165.3 H 64.5 L ABG HCO3 17.2 L 17.4 L ABG O2 Saturation 85.2 L ABG Base Excess -11.0 L -9.0 L ABG Hemoglobin 7.5 L 8.4 L Oxyhemoglobin 83.4 L Carboxyhemoglobin Sodium Potassium Chloride Carbon Dioxide BUN Glucose POC Glucose Lactic Acid 3.20 H* Calcium Ferritin AST ALT Alkaline Phosphatase Lactate Dehydrogenase Total Creatine Kinase CK-MB (CK-2) Rel Index Troponin T C-Reactive Protein Total Protein Albumin LDL Cholesterol Direct HDL Cholesterol Urine WBC (Auto) Vancomycin Trough Crossmatch 02/26/20 02/26/20 02/26/20 04:00 04:00 04:00 WBC 20.4 H RBC 2.61 L Hgb 7.0 L Hct 24.5 L MCH 27 L MCHC 29 L RDW 25.1 H Plt Count Lymph % (Auto) Lymph # (Auto) Seg Neutrophils % Seg Neuts % (Manual) 92.0 H Lymphocytes % (Manual) 4.0 L Nucleated RBC % Seg Neutrophils # Seg Neutrophils # Man 18.8 H Lymphocytes # (Manual) 0.8 L PT 17.9 H INR 1.46 H D-Dimer ABG pH POC ABG pCO2 POC ABG pO2 ABG pO2 ABG HCO3 ABG O2 Saturation ABG Base Excess ABG Hemoglobin Oxyhemoglobin Carboxyhemoglobin Sodium Potassium Chloride 111.1 H Carbon Dioxide 14 L D BUN 29 H Glucose 57 L POC Glucose Lactic Acid Calcium 7.8 L Ferritin AST ALT Alkaline Phosphatase Lactate Dehydrogenase Total Creatine Kinase CK-MB (CK-2) Rel Index Troponin T C-Reactive Protein Total Protein Albumin LDL Cholesterol Direct HDL Cholesterol Urine WBC (Auto) Vancomycin Trough Crossmatch 02/26/20 02/26/20 02/26/20 04:20 07:13 09:20 WBC RBC Hgb Hct MCH MCHC RDW Plt Count Lymph % (Auto) Lymph # (Auto) Seg Neutrophils % Seg Neuts % (Manual) Lymphocytes % (Manual) Nucleated RBC % Seg Neutrophils # Seg Neutrophils # Man Lymphocytes # (Manual) PT INR D-Dimer ABG pH 7.269 L POC ABG pCO2 POC ABG pO2 ABG pO2 236.1 H ABG HCO3 13.9 L ABG O2 Saturation 99.3 H ABG Base Excess -11.9 L ABG Hemoglobin 7.2 L Oxyhemoglobin Carboxyhemoglobin Sodium Potassium Chloride Carbon Dioxide BUN Glucose POC Glucose 52 L Lactic Acid Calcium Ferritin AST ALT Alkaline Phosphatase Lactate Dehydrogenase Total Creatine Kinase CK-MB (CK-2) Rel Index Troponin T C-Reactive Protein Total Protein Albumin LDL Cholesterol Direct HDL Cholesterol Urine WBC (Auto) Vancomycin Trough Crossmatch See Detail 02/27/20 02/27/20 02/27/20 04:59 05:40 07:30 WBC 16.6 H RBC 3.07 L Hgb 8.4 L Hct 27.4 L MCH MCHC 31 L RDW 24.4 H Plt Count Lymph % (Auto) Lymph # (Auto) Seg Neutrophils % Seg Neuts % (Manual) Lymphocytes % (Manual) Nucleated RBC % Seg Neutrophils # Seg Neutrophils # Man Lymphocytes # (Manual) PT INR D-Dimer ABG pH 7.306 L POC ABG pCO2 POC ABG pO2 ABG pO2 149.6 H ABG HCO3 17.0 L ABG O2 Saturation ABG Base Excess -8.5 L ABG Hemoglobin 7.8 L Oxyhemoglobin Carboxyhemoglobin Sodium Potassium Chloride Carbon Dioxide BUN Glucose POC Glucose 64 L Lactic Acid Calcium Ferritin AST ALT Alkaline Phosphatase Lactate Dehydrogenase Total Creatine Kinase CK-MB (CK-2) Rel Index Troponin T C-Reactive Protein Total Protein Albumin LDL Cholesterol Direct HDL Cholesterol Urine WBC (Auto) Vancomycin Trough Crossmatch 02/27/20 02/27/20 02/27/20 07:30 12:07 18:07 WBC RBC Hgb Hct MCH MCHC RDW Plt Count Lymph % (Auto) Lymph # (Auto) Seg Neutrophils % Seg Neuts % (Manual) Lymphocytes % (Manual) Nucleated RBC % Seg Neutrophils # Seg Neutrophils # Man Lymphocytes # (Manual) PT INR D-Dimer ABG pH POC ABG pCO2 POC ABG pO2 ABG pO2 ABG HCO3 ABG O2 Saturation ABG Base Excess ABG Hemoglobin Oxyhemoglobin Carboxyhemoglobin Sodium 146 H Potassium Chloride 115.0 H Carbon Dioxide 17 L BUN 29 H Glucose 72 L POC Glucose 116 H 63 L Lactic Acid Calcium 7.9 L Ferritin AST 118 H ALT Alkaline Phosphatase 273 H Lactate Dehydrogenase Total Creatine Kinase CK-MB (CK-2) Rel Index Troponin T C-Reactive Protein Total Protein 5.3 L D Albumin 2.0 L LDL Cholesterol Direct HDL Cholesterol Urine WBC (Auto) Vancomycin Trough Crossmatch 02/27/20 02/28/20 02/28/20 23:41 04:30 05:30 WBC 12.5 H RBC 2.99 L Hgb 8.0 L Hct 26.6 L MCH 27 L MCHC 30 L RDW 24.8 H Plt Count Lymph % (Auto) 7.5 L Lymph # (Auto) 0.9 L Seg Neutrophils % 86.9 H Seg Neuts % (Manual) Lymphocytes % (Manual) Nucleated RBC % Seg Neutrophils # 10.8 H Seg Neutrophils # Man Lymphocytes # (Manual) PT INR D-Dimer ABG pH 7.240 L POC ABG pCO2 POC ABG pO2 ABG pO2 ABG HCO3 ABG O2 Saturation ABG Base Excess ABG Hemoglobin 9.0 L Oxyhemoglobin Carboxyhemoglobin Sodium Potassium Chloride Carbon Dioxide BUN Glucose POC Glucose 131 H Lactic Acid Calcium Ferritin AST ALT Alkaline Phosphatase Lactate Dehydrogenase Total Creatine Kinase CK-MB (CK-2) Rel Index Troponin T C-Reactive Protein Total Protein Albumin LDL Cholesterol Direct HDL Cholesterol Urine WBC (Auto) Vancomycin Trough Crossmatch 02/28/20 02/28/20 02/28/20 06:00 09:00 17:25 WBC RBC Hgb Hct MCH MCHC RDW Plt Count Lymph % (Auto) Lymph # (Auto) Seg Neutrophils % Seg Neuts % (Manual) Lymphocytes % (Manual) Nucleated RBC % Seg Neutrophils # Seg Neutrophils # Man Lymphocytes # (Manual) PT INR D-Dimer ABG pH POC ABG pCO2 POC ABG pO2 ABG pO2 ABG HCO3 ABG O2 Saturation ABG Base Excess ABG Hemoglobin Oxyhemoglobin Carboxyhemoglobin Sodium Potassium Chloride Carbon Dioxide BUN Glucose POC Glucose 121 H 61 L Lactic Acid Calcium Ferritin AST ALT Alkaline Phosphatase Lactate Dehydrogenase Total Creatine Kinase CK-MB (CK-2) Rel Index Troponin T C-Reactive Protein Total Protein Albumin LDL Cholesterol Direct HDL Cholesterol Urine WBC (Auto) Vancomycin Trough 29.0 H Crossmatch 02/28/20 02/29/20 02/29/20 Unknown 04:32 05:17 WBC RBC Hgb Hct MCH MCHC RDW Plt Count Lymph % (Auto) Lymph # (Auto) Seg Neutrophils % Seg Neuts % (Manual) Lymphocytes % (Manual) Nucleated RBC % Seg Neutrophils # Seg Neutrophils # Man Lymphocytes # (Manual) PT INR D-Dimer ABG pH POC ABG pCO2 22.5 L POC ABG pO2 119.7 H ABG pO2 ABG HCO3 ABG O2 Saturation ABG Base Excess ABG Hemoglobin 10.5 L Oxyhemoglobin Carboxyhemoglobin 0.3 L Sodium Potassium Chloride 114.7 H Carbon Dioxide 14 L BUN 30 H Glucose POC Glucose Lactic Acid Calcium 7.8 L Ferritin AST 193 H ALT Alkaline Phosphatase 354 H Lactate Dehydrogenase Total Creatine Kinase CK-MB (CK-2) Rel Index Troponin T C-Reactive Protein Total Protein 5.6 L Albumin 2.0 L LDL Cholesterol Direct HDL Cholesterol Urine WBC (Auto) Vancomycin Trough Crossmatch 02/29/20 02/29/20 02/29/20 05:29 11:16 11:16 WBC 15.1 H RBC Hgb 10.1 L Hct 32.8 L D MCH 27 L MCHC 31 L RDW 25.2 H Plt Count Lymph % (Auto) Lymph # (Auto) Seg Neutrophils % Seg Neuts % (Manual) 98.0 H Lymphocytes % (Manual) 1.0 L Nucleated RBC % 5.0 H Seg Neutrophils # Seg Neutrophils # Man 14.8 H Lymphocytes # (Manual) 0.2 L PT INR D-Dimer ABG pH POC ABG pCO2 POC ABG pO2 ABG pO2 ABG HCO3 ABG O2 Saturation ABG Base Excess ABG Hemoglobin Oxyhemoglobin Carboxyhemoglobin Sodium Potassium 3.5 L Chloride 111.7 H Carbon Dioxide 14 L BUN 33 H Glucose 180 H POC Glucose 125 H Lactic Acid Calcium 7.8 L Ferritin AST ALT Alkaline Phosphatase Lactate Dehydrogenase Total Creatine Kinase CK-MB (CK-2) Rel Index Troponin T C-Reactive Protein Total Protein Albumin LDL Cholesterol Direct HDL Cholesterol Urine WBC (Auto) Vancomycin Trough Crossmatch 02/29/20 02/29/20 02/29/20 12:55 17:53 23:38 WBC RBC Hgb Hct MCH MCHC RDW Plt Count Lymph % (Auto) Lymph # (Auto) Seg Neutrophils % Seg Neuts % (Manual) Lymphocytes % (Manual) Nucleated RBC % Seg Neutrophils # Seg Neutrophils # Man Lymphocytes # (Manual) PT INR D-Dimer ABG pH POC ABG pCO2 POC ABG pO2 ABG pO2 ABG HCO3 ABG O2 Saturation ABG Base Excess ABG Hemoglobin Oxyhemoglobin Carboxyhemoglobin Sodium Potassium Chloride Carbon Dioxide BUN Glucose POC Glucose 134 H 145 H 127 H Lactic Acid Calcium Ferritin AST ALT Alkaline Phosphatase Lactate Dehydrogenase Total Creatine Kinase CK-MB (CK-2) Rel Index Troponin T C-Reactive Protein Total Protein Albumin LDL Cholesterol Direct HDL Cholesterol Urine WBC (Auto) Vancomycin Trough Crossmatch 03/01/20 03/01/20 03/01/20 03:46 05:44 07:55 WBC 14.0 H RBC Hgb 10.0 L Hct 32.3 L MCH 27 L MCHC 31 L RDW 25.4 H Plt Count 99 L Lymph % (Auto) Lymph # (Auto) Seg Neutrophils % Seg Neuts % (Manual) Lymphocytes % (Manual) Nucleated RBC % Seg Neutrophils # Seg Neutrophils # Man Lymphocytes # (Manual) PT INR D-Dimer ABG pH 7.288 L POC ABG pCO2 POC ABG pO2 ABG pO2 ABG HCO3 11.7 L ABG O2 Saturation ABG Base Excess -13.3 L ABG Hemoglobin Oxyhemoglobin Carboxyhemoglobin Sodium Potassium Chloride Carbon Dioxide BUN Glucose POC Glucose 177 H Lactic Acid Calcium Ferritin AST ALT Alkaline Phosphatase Lactate Dehydrogenase Total Creatine Kinase CK-MB (CK-2) Rel Index Troponin T C-Reactive Protein Total Protein Albumin LDL Cholesterol Direct HDL Cholesterol Urine WBC (Auto) Vancomycin Trough Crossmatch 03/01/20 03/01/20 03/01/20 07:55 12:14 18:07 WBC RBC Hgb Hct MCH MCHC RDW Plt Count Lymph % (Auto) Lymph # (Auto) Seg Neutrophils % Seg Neuts % (Manual) Lymphocytes % (Manual) Nucleated RBC % Seg Neutrophils # Seg Neutrophils # Man Lymphocytes # (Manual) PT INR D-Dimer ABG pH POC ABG pCO2 POC ABG pO2 ABG pO2 ABG HCO3 ABG O2 Saturation ABG Base Excess ABG Hemoglobin Oxyhemoglobin Carboxyhemoglobin Sodium Potassium Chloride 111.5 H Carbon Dioxide 16 L BUN 36 H Glucose 157 H POC Glucose 163 H 109 H Lactic Acid Calcium 7.9 L Ferritin AST ALT Alkaline Phosphatase Lactate Dehydrogenase Total Creatine Kinase CK-MB (CK-2) Rel Index Troponin T C-Reactive Protein Total Protein Albumin LDL Cholesterol Direct HDL Cholesterol Urine WBC (Auto) Vancomycin Trough Crossmatch 03/01/20 03/02/20 23:55 05:42 WBC RBC Hgb Hct MCH MCHC RDW Plt Count Lymph % (Auto) Lymph # (Auto) Seg Neutrophils % Seg Neuts % (Manual) Lymphocytes % (Manual) Nucleated RBC % Seg Neutrophils # Seg Neutrophils # Man Lymphocytes # (Manual) PT INR D-Dimer ABG pH POC ABG pCO2 POC ABG pO2 ABG pO2 ABG HCO3 ABG O2 Saturation ABG Base Excess ABG Hemoglobin Oxyhemoglobin Carboxyhemoglobin Sodium Potassium Chloride Carbon Dioxide BUN Glucose POC Glucose 132 H 146 H Lactic Acid Calcium Ferritin AST ALT Alkaline Phosphatase Lactate Dehydrogenase Total Creatine Kinase CK-MB (CK-2) Rel Index Troponin T C-Reactive Protein Total Protein Albumin LDL Cholesterol Direct HDL Cholesterol Urine WBC (Auto) Vancomycin Trough Crossmatch
--- NOTE | 2020-03-02 11:55 | Progress Note ---
Assessment and Plan Acute respiratory failure Bilateral pneumonia Dilated cardiomyopathy, uncertain chronicity LVEF 15 to 20% by echo this presentation Reports of Transient VF following multiple rounds of epi during code BLUE no strips available for review currently in sinus rhythm on amiodarone for suppression. Reported recent history of tuberculosis Continue amiodarone for suppression of arrhythmias. Guideline directed optimal medical therapy for dilated cardiomyopathy. Otherwise, conservative cardiac management. Subjective Date of service: 03/02/20 Principal diagnosis: Acute respiratory failure Interval history: Patient has been extubated. Currently on Bipap. Objective Vital Signs Temp Pulse Pulse Resp BP Pulse Ox 03/02/20 11:01 91 H 38 H 116/85 99 03/02/20 10:45 96 H 47 H 125/77 95 03/02/20 10:30 92 H 43 H 125/77 95 03/02/20 10:15 91 H 39 H 122/72 94 03/02/20 10:00 85 40 H 111/84 98 03/02/20 09:45 89 43 H 115/87 96 03/02/20 09:38 45 H 03/02/20 09:30 86 46 H 116/87 98 03/02/20 09:15 79 40 H 105/77 98 03/02/20 09:00 80 39 H 102/76 98 03/02/20 08:55 76 36 H 102/76 99 03/02/20 08:45 79 37 H 103/78 98 03/02/20 08:30 80 41 H 104/79 97 03/02/20 08:15 79 27 H 100/78 98 03/02/20 08:00 96.9 F L 83 84 32 H 106/81 97 03/02/20 07:54 44 H 03/02/20 07:45 77 35 H 112/85 98 03/02/20 07:30 78 30 H 105/81 97 03/02/20 07:15 78 32 H 104/78 97 03/02/20 07:00 78 30 H 98/74 96 03/02/20 06:45 78 31 H 99/74 97 03/02/20 06:30 79 29 H 98/75 96 03/02/20 06:15 79 32 H 100/76 96 03/02/20 06:00 96.7 F L 77 30 H 105/78 97 03/02/20 05:47 30 H 03/02/20 05:45 79 30 H 98/77 96 03/02/20 05:30 77 35 H 93/72 97 03/02/20 05:15 80 36 H 99/77 95 03/02/20 05:00 82 38 H 107/81 03/02/20 04:47 45 H 03/02/20 04:45 89 46 H 118/87 90 03/02/20 04:30 90 47 H 120/89 98 03/02/20 04:15 91 H 46 H 117/90 97 03/02/20 04:00 86 85 33 H 119/91 97 03/02/20 03:45 83 42 H 103/78 97 03/02/20 03:30 81 34 H 105/82 99 03/02/20 03:15 82 32 H 109/84 98 03/02/20 03:00 81 33 H 103/81 98 03/02/20 02:45 80 32 H 107/85 98 03/02/20 02:30 90 40 H 119/93 97 03/02/20 02:19 86 47 H 107/80 98 03/02/20 02:15 77 33 H 107/80 98 03/02/20 02:00 77 28 H 101/76 98 03/02/20 01:45 76 34 H 100/76 98 03/02/20 01:30 77 34 H 101/76 98 03/02/20 01:15 79 37 H 100/78 99 03/02/20 01:07 40 H 03/02/20 01:00 88 33 H 118/88 92 03/02/20 00:45 80 40 H 110/84 98 03/02/20 00:30 80 35 H 111/84 99 03/02/20 00:15 78 38 H 103/76 100 03/02/20 00:00 97.0 F L 78 82 36 H 100/77 98 03/01/20 23:45 78 36 H 103/78 98 03/01/20 23:30 82 36 H 98/76 97 03/01/20 23:15 85 38 H 111/85 98 03/01/20 23:11 50 H 03/01/20 23:00 90 44 H 115/88 100 03/01/20 22:45 82 32 H 105/81 03/01/20 22:30 91 H 40 H 120/94 100 03/01/20 22:15 82 31 H 109/83 98 03/01/20 22:07 92 H 30 H 120/94 99 03/01/20 22:00 91 H 42 H 120/94 98 03/01/20 21:45 87 44 H 108/80 95 03/01/20 21:30 81 31 H 101/80 97 03/01/20 21:15 80 32 H 107/85 100 03/01/20 21:10 82 31 H 113/86 99 03/01/20 21:00 85 44 H 113/86 99 03/01/20 20:45 80 32 H 100/79 03/01/20 20:30 82 30 H 98/75 98 03/01/20 20:15 89 33 H 110/85 97 03/01/20 20:00 89 84 39 H 129/95 96 03/01/20 19:45 88 40 H 119/94 98 03/01/20 19:30 87 38 H 118/91 99 03/01/20 19:15 82 30 H 108/84 98 03/01/20 19:00 89 40 H 115/94 98 03/01/20 18:45 91 H 41 H 128/100 98 03/01/20 18:30 87 35 H 119/92 99 03/01/20 18:15 88 43 H 119/92 98 03/01/20 18:00 85 35 H 110/85 99 03/01/20 17:45 87 35 H 117/91 03/01/20 17:30 86 36 H 109/88 100 03/01/20 17:15 91 H 47 H 117/92 98 03/01/20 17:00 89 42 H 122/97 100 03/01/20 16:45 83 38 H 114/87 97 03/01/20 16:30 88 42 H 119/87 97 03/01/20 16:25 89 40 H 98 03/01/20 16:15 93 H 47 H 115/85 98 03/01/20 16:00 86 86 33 H 100/82 100 03/01/20 15:45 86 36 H 115/85 99 03/01/20 15:30 92 H 24 115/85 99 03/01/20 15:15 91 H 27 H 115/92 97 03/01/20 15:00 90 21 115/92 99 03/01/20 14:45 85 37 H 112/83 98 03/01/20 14:30 85 18 114/78 97 03/01/20 14:15 86 40 H 118/86 98 03/01/20 14:00 89 34 H 120/76 98 03/01/20 13:45 92 H 43 H 118/86 99 03/01/20 13:31 89 24 118/90 99 03/01/20 13:15 88 31 H 118/90 100 03/01/20 13:00 88 25 H 119/83 100 03/01/20 12:45 87 39 H 105/78 99 03/01/20 12:30 93 H 16 108/86 98 03/01/20 12:15 92 H 42 H 116/91 100 03/01/20 12:00 97.9 F 91 H 91 H 36 H 123/87 100 - Physical Examination General: Other (Unresponsive, on the vent) - Imaging and Cardiology EKG: report reviewed, image reviewed
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
[2020-03-02] MEDS ORDERED: HALOPERIDOL LACTATE 5 MG/1 ML INJ IV SCH (15:00)
--- NOTE | 2020-03-02 15:18 | XRay Report ---
ABDOMEN 1 VIEW INDICATION / CLINICAL INFORMATION: NGT placement. COMPARISON: KUB dated 02/28/2020. FINDINGS: TUBES / LINES: An esophagogastric tube terminates over the proximal gastric body. BOWEL GAS PATTERN: No significant abnormality. FREE AIR / EXTRALUMINAL GAS: None seen. ADDITIONAL FINDINGS: Bilateral airspace opacities are again noted. IMPRESSION: 1. Satisfactory positioning of the NG tube. 2. No acute abnormality of the abdomen. Signer Name: Tree Linn MD Signed: 03/02/2020 3:14 PM Workstation Name: [email or web address]
[2020-03-02] MEDS: METHADONE 10 MG TAB PO SCH ×2 (15:23→22:05)
[2020-03-02] MEDS: HALOPERIDOL LACTATE 5 MG/1 ML INJ IV SCH ×2 (15:24→23:58)
[2020-03-02] MEDS: carvediloL 6.25 MG TAB PO SCH (22:05)
[2020-03-03] MEDS: HYDROmorphone 2 MG/1 ML INJ IV PRN ×6 (01:44→18:41)
[2020-03-03] MEDS: HALOPERIDOL LACTATE 5 MG/1 ML INJ IV SCH ×3 (05:49→17:03)
[2020-03-03] MEDS: METHADONE 10 MG TAB PO SCH ×5 (05:49→21:59)
[2020-03-03] MEDS: DEXMEDETOMIDINE 200 MCG in SODIUM CHLORIDE 0.9% 48 ML IV SCH (05:53)
[2020-03-03 06:24] LABS: Hematocrit 32.2 % (35.5-45.6); Hemoglobin 9.9 gm/dl (11.8-15.2); Mean Corpuscular HGB Conc 31 % (32-34); Mean Corpuscular Volume 88 fl (84-94); Red Blood Count 3.67 M/mm3 (3.65-5.03)
[2020-03-03 06:26] LABS: Platelet Count 67 K/mm3 (140-440); Red Cell Distribution Width 25.8 % (13.2-15.2)
[2020-03-03 06:42] LABS: BUN/Creatinine Ratio 39; Blood Urea Nitrogen 35 mg/dL (9-20); Calcium 8.4 mg/dL (8.4-10.2); Hemolysis Index 6
--- NOTE | 2020-03-03 08:36 | XRay Report ---
XR abdomen 1V ap INDICATION: confirm NGT placement COMPARISON: Yesterday, March 02, 2020 FINDINGS/IMPRESSION: * Nasogastric tube terminates in the stomach similar to prior examination. Side-port is beneath the GE junction. * Persistent airspace disease in the visualized lung bases. Signer Name: Erik Diaz MD Signed: 03/03/2020 8:31 AM Workstation Name: [id number]
--- NOTE | 2020-03-03 09:30 | Progress Note ---
Assessment and Plan - Patient Problems (1) Anemia Current Visit: Yes Status: Acute Qualifiers: Anemia type: unspecified type Qualified Code(s): D64.9 - Anemia, unspecified (2) Atrial fibrillation Current Visit: Yes Status: Acute (3) Cardiorespiratory arrest Current Visit: Yes Status: Acute (4) Dilated cardiomyopathy Current Visit: Yes Status: Acute (5) Paraplegia Current Visit: Yes Status: Acute (6) Pneumonia Current Visit: Yes Status: Acute Qualifiers: Pneumonia type: due to unspecified organism Laterality: bilateral Lung location: unspecified part of lung Qualified Code(s): J18.9 - Pneumonia, unspecified organism Subjective Date of service: 03/03/20 Principal diagnosis: Acute respiratory failure Interval history: ALERT,,,LIMITED SPEECH,, Objective Vital Signs Temp Pulse Pulse Resp BP Pulse Ox 03/03/20 09:00 85 31 H 115/85 94 03/03/20 08:45 89 34 H 119/87 93 03/03/20 08:30 84 29 H 114/84 95 03/03/20 08:15 86 31 H 112/83 95 03/03/20 08:00 89 28 H 115/78 97 03/03/20 07:45 87 31 H 111/80 94 03/03/20 07:39 82 31 H 03/03/20 07:30 83 29 H 101/75 95 03/03/20 07:15 84 27 H 103/76 95 03/03/20 07:00 83 26 H 100/72 96 03/03/20 06:45 83 26 H 92/67 95 03/03/20 06:30 81 26 H 93/68 96 03/03/20 06:15 79 26 H 94/63 97 03/03/20 06:00 86 29 H 101/75 92 03/03/20 05:45 88 34 H 112/83 93 03/03/20 05:30 92 H 37 H 112/83 94 03/03/20 05:15 83 30 H 110/80 94 03/03/20 05:00 84 32 H 113/80 95 03/03/20 04:45 85 31 H 106/76 94 03/03/20 04:30 84 32 H 109/77 95 03/03/20 04:15 81 29 H 101/74 95 03/03/20 04:00 82 30 H 109/74 96 03/03/20 03:45 81 29 H 102/77 96 03/03/20 03:30 80 30 H 103/72 95 03/03/20 03:27 98.8 F 03/03/20 03:15 78 28 H 98/70 96 03/03/20 03:00 81 26 H 95/69 97 03/03/20 02:45 81 28 H 101/69 96 03/03/20 02:30 81 28 H 94/70 96 03/03/20 02:15 81 28 H 93/67 96 03/03/20 02:00 79 28 H 92/67 95 03/03/20 01:45 83 35 H 101/67 95 03/03/20 01:30 84 33 H 93/67 93 03/03/20 01:15 83 32 H 96/68 95 03/03/20 01:00 83 34 H 96/68 95 03/03/20 00:45 78 30 H 86/61 95 03/03/20 00:30 84 26 H 86/60 95 03/03/20 00:15 84 29 H 87/63 95 03/03/20 00:00 87 40 H 91/60 93 03/02/20 23:45 91 H 35 H 102/64 90 03/02/20 23:37 98.9 F 03/02/20 23:31 88 35 H 120/75 82 L 03/02/20 23:15 62 41 H 120/75 84 03/02/20 23:00 94 H 30 H 109/80 97 03/02/20 22:45 96 H 29 H 115/81 98 03/02/20 22:30 99 H 30 H 108/77 99 03/02/20 22:15 97 H 30 H 113/82 97 03/02/20 22:05 98 H 108/80 03/02/20 22:00 95 H 35 H 108/80 98 03/02/20 21:45 97 H 33 H 107/78 99 03/02/20 21:30 97 H 33 H 112/82 99 03/02/20 21:15 97 H 33 H 111/75 98 03/02/20 21:00 100 H 40 H 127/94 87 03/02/20 20:45 95 H 29 H 110/78 99 03/02/20 20:30 98 H 33 H 106/80 99 03/02/20 20:15 98 H 32 H 108/81 99 03/02/20 20:00 97.8 F 98 H 31 H 104/75 99 03/02/20 19:45 97 H 30 H 111/78 98 03/02/20 19:30 98 H 32 H 110/81 99 03/02/20 19:15 95 H 32 H 113/79 98 03/02/20 19:05 92 H 27 H 107/81 99 03/02/20 19:00 92 H 29 H 107/81 99 03/02/20 18:45 92 H 30 H 106/74 99 03/02/20 18:30 95 H 23 134/89 97 03/02/20 18:15 96 H 34 H 124/89 98 03/02/20 18:00 91 H 30 H 112/81 98 03/02/20 17:45 94 H 34 H 113/82 100 03/02/20 17:30 92 H 28 H 113/82 03/02/20 17:15 91 H 29 H 117/84 03/02/20 17:00 91 H 31 H 120/84 03/02/20 16:45 90 31 H 114/80 98 03/02/20 16:30 91 H 33 H 115/84 98 03/02/20 16:15 96 H 35 H 118/86 98 03/02/20 16:04 99 03/02/20 16:00 97.1 F L 93 H 91 H 30 H 121/87 98 03/02/20 15:45 101 H 41 H 118/87 97 03/02/20 15:30 104 H 42 H 131/91 99 03/02/20 15:15 87 29 H 134/87 90 03/02/20 15:00 101 H 39 H 134/87 97 03/02/20 14:45 100 H 41 H 118/88 96 03/02/20 14:30 97 H 36 H 118/88 100 03/02/20 14:15 100 H 34 H 127/93 100 03/02/20 14:00 100 H 47 H 129/83 100 03/02/20 13:45 97 H 22 120/84 99 03/02/20 13:30 97 H 44 H 122/90 100 03/02/20 13:15 98 H 33 H 121/99 94 03/02/20 13:00 98 H 43 H 121/99 92 03/02/20 12:45 101 H 41 H 132/105 92 03/02/20 12:30 92 H 39 H 134/98 96 03/02/20 12:15 90 40 H 112/89 95 03/02/20 12:00 96.9 F L 89 84 39 H 112/89 96 03/02/20 11:45 97 H 51 H 114/84 95 03/02/20 11:30 100 H 41 H 130/92 95 03/02/20 11:15 96 H 41 H 121/35 96 03/02/20 11:01 91 H 38 H 116/85 99 03/02/20 10:45 96 H 47 H 125/77 95 03/02/20 10:30 92 H 43 H 125/77 95 03/02/20 10:15 91 H 39 H 122/72 94 03/02/20 10:00 85 40 H 111/84 98 03/02/20 09:45 89 43 H 115/87 96 03/02/20 09:38 45 H 03/02/20 09:30 86 46 H 116/87 98 - Physical Examination General: Other (ALERT,,GARBLED SPEECH) HEENT: Positive: PERRL Neck: Positive: neck supple Cardiac: Positive: Reg Rate and Rhythm Lungs: Positive: Rhonchi Neuro: Positive: Other (DEFFERED) Abdomen: Positive: Soft Extremities: Present: edema (MILD) - Labs and Meds CBC 03/03/20 Range/Units 04:52 WBC 13.3 H (4.5-11.0) K/mm3 RBC 3.67 (3.65-5.03) M/mm3 Hgb 9.9 L (11.8-15.2) gm/dl Hct 32.2 L (35.5-45.6) % Plt Count 67 L (140-440) K/mm3 Comprehensive Metabolic Panel 03/03/20 Range/Units 04:52 Sodium 143 (137-145) mmol/L Potassium 3.6 (3.6-5.0) mmol/L Chloride 112.7 H (98-107) mmol/L Carbon Dioxide 19 L (22-30) mmol/L BUN 35 H (9-20) mg/dL Creatinine 0.9 (0.8-1.3) mg/dL Glucose 81 (75-100) mg/dL Calcium 8.4 (8.4-10.2) mg/dL - Imaging and Cardiology EKG: report reviewed, image reviewed
--- NOTE | 2020-03-03 09:31 | Progress Note ---
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 Status: Active Protocol: Document 03/01/20 11:27 [email or web address] (Rec: 03/01/20 11:56 [email or web address]) Co-Sign 03/01/20 11:27 LP Nutrition Notes Initial or Follow up Reassessment Current Diagnosis Decubitus(Pressure Ulcer), Sepsis,Respiratory Failure Other Pertinent Diagnosis Pneu, UTI, anemia, paraplegia, buttocks PU,Pulmonary TB Current Diet Osmolite 1.5 at 50ml/hr Labs/Tests BUN 36 BG 157 Pertinent Medications Viamin B6 Propofol Height 5 ft 9 in Weight 45.359 kg [place] Body Weight (kg) 72.72 BMI 14.8 Subjective/Other Information F/U TF rate. Pt TF running at goal rate. Per MD, will extubate pt tomorrow. Percent of energy/protein needs met: 94%/100% Burn Absent Trauma Absent Current % PO Negligible Minimum of two criteria Yes Muscle Mass Mild Depletion (non-severe) Fluid Accumulation Moderate to Severe (severe) #3 Nutrition Diagnosis Increased nutrient needs ( specify in comment below) Diagnosis Progress(for reassessment Continues documentation) #2 Nutrition Diagnosis Inadequate oral intake Diagnosis Progress(for reassessment Continues documentation) #1 Nutrition Diagnosis Malnutrition Diagnosis Progress(for reassessment Continues documentation) Is patient on ventilator? Yes Is Patient Ambulatory and/or Out of Bed No REE-([place]-St. Jeor-confined to bed) 1592.628 Kcal/Kg value to use for calculation 42 Approximate Energy Requirements Using 1905 kcal/Kg Calculation Used for Recommendations Kcal/kg Additional Notes Protein: 54-90g (1.2-2g/kg) Fluid: 1ml/kcal Nutrition Intervention Change Diet Order: Continue TF Nutrition Support: Osmolite 1.5 at 50ml/hr Flush 150ml q4h Kcal 1,800 Protein (gm) 75 Fluid (mL) 914 Goal #1 TF tolerance Goal #2 Meet at least 100% of energy and protein needs via TF. Goal #3 Wound healing Goal #4 Wt maintenance or wt gain Anticipated Discharge Needs: unable to determine at this time Follow-Up By: 03/03/20 Additional Comments F/U stable TF and plan of care
[2020-03-03] MEDS: SENNOSIDES/DOCUSATE SODIUM 8.6/50 MG TAB PO SCH ×2 (09:39→21:58)
[2020-03-03] MEDS: FUROSEMIDE 40 MG TAB PO SCH (09:39)
[2020-03-03] MEDS: LISINOPRIL 5 MG TAB PO SCH (09:39)
[2020-03-03] MEDS: AMIODARONE 200 MG TAB PO SCH (09:40)
[2020-03-03] MEDS: carvediloL 6.25 MG TAB PO SCH ×2 (09:40→21:59)
[2020-03-03] MEDS: FAMOTIDINE 20 MG TAB PO SCH ×2 (09:40→21:59)
[2020-03-03] MEDS: SPIRONOLACTONE 25 MG TAB PO SCH (09:40)
[2020-03-03] MEDS: ISONIAZID 300 MG TAB PO SCH (09:42)
[2020-03-03] MEDS: PYRAZINAMIDE 500 MG TAB PO SCH (09:43)
[2020-03-03] MEDS: rifAMPin 300 MG CAP PO SCH (09:43)
[2020-03-03] MEDS: ETHAMBUTOL 400 MG TAB PO SCH (09:43)
[2020-03-03] MEDS: PYRIDOXINE 50 MG TAB PO SCH (09:43)
--- NOTE | 2020-03-03 10:50 | Progress Note ---
Assessment and Plan 44 y/o male admitted with hypoxemia, fever and brody catheter pain, subsequent cardiac arrest in the ED, resuscitated and intubated, now with hypotension, anion gap metabolic acidosis, acute respiratory failure, hypoglycemia and vtach/vfib, found to have severe left sided heart disease. 1. Pulm-Continue high flow NC. Cards has added lasix and spironolactone so this should help with volume status. Also now on BB as well. Will check CXR for the AM. of isolation now for TB. Continue ICU monitoring unless in a bed crunch, and then would prefer IMCU. 2. CV-severe systolic heart failure. Cards following. They have added medica tions to the regimen. 3. Heme-Anemia. Etiology unknown. Could be from chronic disease. Thrombocy topenia. Stopped all heparin products and HIT panel is pending. 4. Renal- No labs today. 5. Endo-restarted feeds via NG/Dobb laquita tube 6. 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 Abx therapy stopped. 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 ID follows. Will keep in ICU for now given tenuous respiratory state. CCT 31 minutes. Subjective Date of service: 03/03/20 Principal diagnosis: Acute respiratory failure Interval history: Currently on HFNC. Had to be placed back on precedex but haldol is helping. HIT is pending but platelets are dropping. No acute evidence of clot at this time. Awake and alert. Had NG tube replaced this morning. Objective Vital Signs - 12hr 03/02/20 03/02/20 03/02/20 23:00 23:15 23:31 Temperature Pulse Rate 94 H 62 88 Pulse Rate [ From Monitor] Respiratory 30 H 41 H 35 H Rate Blood Pressure 109/80 120/75 120/75 O2 Sat by Pulse 97 84 82 L Oximetry 03/02/20 03/02/20 03/03/20 23:37 23:45 00:00 Temperature 98.9 F Pulse Rate 91 H 87 Pulse Rate [ From Monitor] Respiratory 35 H 40 H Rate Blood Pressure 102/64 91/60 O2 Sat by Pulse 90 93 Oximetry 03/03/20 03/03/20 03/03/20 00:15 00:30 00:45 Temperature Pulse Rate 84 84 78 Pulse Rate [ From Monitor] Respiratory 29 H 26 H 30 H Rate Blood Pressure 87/63 86/60 86/61 O2 Sat by Pulse 95 95 95 Oximetry 03/03/20 03/03/20 03/03/20 01:00 01:15 01:30 Temperature Pulse Rate 83 83 84 Pulse Rate [ From Monitor] Respiratory 34 H 32 H 33 H Rate Blood Pressure 96/68 96/68 93/67 O2 Sat by Pulse 95 95 93 Oximetry 03/03/20 03/03/20 03/03/20 01:45 02:00 02:15 Temperature Pulse Rate 83 79 81 Pulse Rate [ From Monitor] Respiratory 35 H 28 H 28 H Rate Blood Pressure 101/67 92/67 93/67 O2 Sat by Pulse 95 95 96 Oximetry 03/03/20 03/03/20 03/03/20 02:30 02:45 03:00 Temperature Pulse Rate 81 81 81 Pulse Rate [ From Monitor] Respiratory 28 H 28 H 26 H Rate Blood Pressure 94/70 101/69 95/69 O2 Sat by Pulse 96 96 97 Oximetry 03/03/20 03/03/20 03/03/20 03:15 03:27 03:30 Temperature 98.8 F Pulse Rate 78 80 Pulse Rate [ From Monitor] Respiratory 28 H 30 H Rate Blood Pressure 98/70 103/72 O2 Sat by Pulse 96 95 Oximetry 03/03/20 03/03/20 03/03/20 03:45 04:00 04:15 Temperature Pulse Rate 81 82 81 Pulse Rate [ From Monitor] Respiratory 29 H 30 H 29 H Rate Blood Pressure 102/77 109/74 101/74 O2 Sat by Pulse 96 96 95 Oximetry 03/03/20 03/03/20 03/03/20 04:30 04:45 05:00 Temperature Pulse Rate 84 85 84 Pulse Rate [ From Monitor] Respiratory 32 H 31 H 32 H Rate Blood Pressure 109/77 106/76 113/80 O2 Sat by Pulse 95 94 95 Oximetry 03/03/20 03/03/20 03/03/20 05:15 05:30 05:45 Temperature Pulse Rate 83 92 H 88 Pulse Rate [ From Monitor] Respiratory 30 H 37 H 34 H Rate Blood Pressure 110/80 112/83 112/83 O2 Sat by Pulse 94 94 93 Oximetry 03/03/20 03/03/20 03/03/20 06:00 06:15 06:30 Temperature Pulse Rate 86 79 81 Pulse Rate [ From Monitor] Respiratory 29 H 26 H 26 H Rate Blood Pressure 101/75 94/63 93/68 O2 Sat by Pulse 92 97 96 Oximetry 03/03/20 03/03/20 03/03/20 06:45 07:00 07:15 Temperature Pulse Rate 83 83 84 Pulse Rate [ From Monitor] Respiratory 26 H 26 H 27 H Rate Blood Pressure 92/67 100/72 103/76 O2 Sat by Pulse 95 96 95 Oximetry 03/03/20 03/03/20 03/03/20 07:30 07:39 07:45 Temperature Pulse Rate 83 87 Pulse Rate [ 82 From Monitor] Respiratory 29 H 31 H 31 H Rate Blood Pressure 101/75 111/80 O2 Sat by Pulse 95 94 Oximetry 03/03/20 03/03/20 03/03/20 08:00 08:15 08:30 Temperature Pulse Rate 89 86 84 Pulse Rate [ From Monitor] Respiratory 28 H 31 H 29 H Rate Blood Pressure 115/78 112/83 114/84 O2 Sat by Pulse 93 95 95 Oximetry 03/03/20 03/03/20 03/03/20 08:45 09:00 09:39 Temperature Pulse Rate 89 85 87 Pulse Rate [ From Monitor] Respiratory 34 H 31 H Rate Blood Pressure 119/87 115/85 109/82 O2 Sat by Pulse 93 94 Oximetry 03/03/20 09:40 Temperature Pulse Rate 85 Pulse Rate [ From Monitor] Respiratory Rate Blood Pressure 109/82 O2 Sat by Pulse Oximetry Constitutional: agitated, appears uncomfortable, other (on vent, critically ill) Eyes: icteric, injected ENT: other (orally intubated with poor dentition) Neck: supple, no JVD Effort: mildly labored Ascultation: Right: rhonchi (upper lobe), Bilateral: rales Percussion: Bilateral: not dull Cardiovascular: other (sinus tach) Gastrointestinal: normoactive bowel sounds, soft Extremities: other (per nursing report, decubitus ulcer) Neurologic: unable to assess CBC and BMP: 03/03/20 04:52 03/03/20 04:52 ABG, PT/INR, D-dimer: ABG ABG pH 7.288 pH Units (7.350-7.450) L 03/01/20 03:46 POC ABG pCO2 22.5 mmHg (32.0-48.0) L 02/29/20 05:17 ABG pCO2 24.9 mm Hg 03/01/20 03:46 POC ABG pO2 119.7 mmHg (83-108) H 02/29/20 05:17 ABG pO2 85.2 mm Hg (80.0-90.0) 03/01/20 03:46 POC ABG HCO3 11.8 02/29/20 05:17 ABG O2 Saturation 95.6 % (95.0-99.0) 03/01/20 03:46 PT/INR, D-dimer PT 17.9 Sec. (12.2-14.9) H 02/26/20 04:00 INR 1.46 (0.87-1.13) H 02/26/20 04:00 D-Dimer 3251.26 ng/mlDDU (0-234) H 02/25/20 03:37 Abnormal lab findings: Abnormal Labs 02/25/20 02/25/20 02/25/20 00:46 00:46 00:46 WBC RBC 3.22 L Hgb 8.9 L Hct 28.5 L MCH MCHC 31 L RDW 24.8 H Plt Count 452 H Lymph % (Auto) 9.1 L Lymph # (Auto) 0.9 L Seg Neutrophils % 86.6 H Seg Neuts % (Manual) Lymphocytes % (Manual) Nucleated RBC % Seg Neutrophils # 8.9 H Seg Neutrophils # Man Lymphocytes # (Manual) PT INR D-Dimer ABG pH POC ABG pCO2 POC ABG pO2 ABG pO2 ABG HCO3 ABG O2 Saturation ABG Base Excess ABG Hemoglobin Oxyhemoglobin Carboxyhemoglobin Sodium Potassium Chloride Carbon Dioxide BUN Glucose POC Glucose Lactic Acid 2.10 H* Calcium 8.3 L Ferritin AST ALT < 5 L Alkaline Phosphatase 187 H Lactate Dehydrogenase Total Creatine Kinase 28 L CK-MB (CK-2) Rel Index 8.5 H Troponin T 0.190 H* C-Reactive Protein Total Protein Albumin 2.5 L LDL Cholesterol Direct 45 L HDL Cholesterol 32 L Urine WBC (Auto) Vancomycin Trough Crossmatch 02/25/20 02/25/20 02/25/20 02:32 03:37 03:37 WBC RBC Hgb Hct MCH MCHC RDW Plt Count Lymph % (Auto) Lymph # (Auto) Seg Neutrophils % Seg Neuts % (Manual) Lymphocytes % (Manual) Nucleated RBC % Seg Neutrophils # Seg Neutrophils # Man Lymphocytes # (Manual) PT INR D-Dimer 3251.26 H ABG pH POC ABG pCO2 POC ABG pO2 ABG pO2 ABG HCO3 ABG O2 Saturation ABG Base Excess ABG Hemoglobin Oxyhemoglobin Carboxyhemoglobin Sodium Potassium Chloride Carbon Dioxide BUN Glucose 144 H POC Glucose Lactic Acid Calcium Ferritin AST ALT Alkaline Phosphatase Lactate Dehydrogenase 234 H Total Creatine Kinase CK-MB (CK-2) Rel Index Troponin T C-Reactive Protein 8.80 H Total Protein Albumin LDL Cholesterol Direct HDL Cholesterol Urine WBC (Auto) 68.0 H Vancomycin Trough Crossmatch 02/25/20 02/25/20 02/25/20 03:37 05:36 06:33 WBC RBC Hgb Hct MCH MCHC RDW Plt Count Lymph % (Auto) Lymph # (Auto) Seg Neutrophils % Seg Neuts % (Manual) Lymphocytes % (Manual) Nucleated RBC % Seg Neutrophils # Seg Neutrophils # Man Lymphocytes # (Manual) PT INR D-Dimer ABG pH POC ABG pCO2 POC ABG pO2 ABG pO2 ABG HCO3 ABG O2 Saturation ABG Base Excess ABG Hemoglobin Oxyhemoglobin Carboxyhemoglobin Sodium Potassium Chloride Carbon Dioxide BUN Glucose POC Glucose 234 H Lactic Acid Calcium Ferritin 450.5 H AST ALT Alkaline Phosphatase Lactate Dehydrogenase Total Creatine Kinase CK-MB (CK-2) Rel Index Troponin T 0.187 H* C-Reactive Protein Total Protein Albumin LDL Cholesterol Direct HDL Cholesterol Urine WBC (Auto) Vancomycin Trough Crossmatch 02/25/20 02/25/20 02/25/20 09:30 13:10 16:27 WBC RBC Hgb Hct MCH MCHC RDW Plt Count Lymph % (Auto) Lymph # (Auto) Seg Neutrophils % Seg Neuts % (Manual) Lymphocytes % (Manual) Nucleated RBC % Seg Neutrophils # Seg Neutrophils # Man Lymphocytes # (Manual) PT INR D-Dimer ABG pH 7.149 L* 7.256 L POC ABG pCO2 POC ABG pO2 ABG pO2 165.3 H 64.5 L ABG HCO3 17.2 L 17.4 L ABG O2 Saturation 85.2 L ABG Base Excess -11.0 L -9.0 L ABG Hemoglobin 7.5 L 8.4 L Oxyhemoglobin 83.4 L Carboxyhemoglobin Sodium Potassium Chloride Carbon Dioxide BUN Glucose POC Glucose Lactic Acid 3.20 H* Calcium Ferritin AST ALT Alkaline Phosphatase Lactate Dehydrogenase Total Creatine Kinase CK-MB (CK-2) Rel Index Troponin T C-Reactive Protein Total Protein Albumin LDL Cholesterol Direct HDL Cholesterol Urine WBC (Auto) Vancomycin Trough Crossmatch 02/26/20 02/26/20 02/26/20 04:00 04:00 04:00 WBC 20.4 H RBC 2.61 L Hgb 7.0 L Hct 24.5 L MCH 27 L MCHC 29 L RDW 25.1 H Plt Count Lymph % (Auto) Lymph # (Auto) Seg Neutrophils % Seg Neuts % (Manual) 92.0 H Lymphocytes % (Manual) 4.0 L Nucleated RBC % Seg Neutrophils # Seg Neutrophils # Man 18.8 H Lymphocytes # (Manual) 0.8 L PT 17.9 H INR 1.46 H D-Dimer ABG pH POC ABG pCO2 POC ABG pO2 ABG pO2 ABG HCO3 ABG O2 Saturation ABG Base Excess ABG Hemoglobin Oxyhemoglobin Carboxyhemoglobin Sodium Potassium Chloride 111.1 H Carbon Dioxide 14 L D BUN 29 H Glucose 57 L POC Glucose Lactic Acid Calcium 7.8 L Ferritin AST ALT Alkaline Phosphatase Lactate Dehydrogenase Total Creatine Kinase CK-MB (CK-2) Rel Index Troponin T C-Reactive Protein Total Protein Albumin LDL Cholesterol Direct HDL Cholesterol Urine WBC (Auto) Vancomycin Trough Crossmatch 02/26/20 02/26/20 02/26/20 04:20 07:13 09:20 WBC RBC Hgb Hct MCH MCHC RDW Plt Count Lymph % (Auto) Lymph # (Auto) Seg Neutrophils % Seg Neuts % (Manual) Lymphocytes % (Manual) Nucleated RBC % Seg Neutrophils # Seg Neutrophils # Man Lymphocytes # (Manual) PT INR D-Dimer ABG pH 7.269 L POC ABG pCO2 POC ABG pO2 ABG pO2 236.1 H ABG HCO3 13.9 L ABG O2 Saturation 99.3 H ABG Base Excess -11.9 L ABG Hemoglobin 7.2 L Oxyhemoglobin Carboxyhemoglobin Sodium Potassium Chloride Carbon Dioxide BUN Glucose POC Glucose 52 L Lactic Acid Calcium Ferritin AST ALT Alkaline Phosphatase Lactate Dehydrogenase Total Creatine Kinase CK-MB (CK-2) Rel Index Troponin T C-Reactive Protein Total Protein Albumin LDL Cholesterol Direct HDL Cholesterol Urine WBC (Auto) Vancomycin Trough Crossmatch See Detail 02/27/20 02/27/20 02/27/20 04:59 05:40 07:30 WBC 16.6 H RBC 3.07 L Hgb 8.4 L Hct 27.4 L MCH MCHC 31 L RDW 24.4 H Plt Count Lymph % (Auto) Lymph # (Auto) Seg Neutrophils % Seg Neuts % (Manual) Lymphocytes % (Manual) Nucleated RBC % Seg Neutrophils # Seg Neutrophils # Man Lymphocytes # (Manual) PT INR D-Dimer ABG pH 7.306 L POC ABG pCO2 POC ABG pO2 ABG pO2 149.6 H ABG HCO3 17.0 L ABG O2 Saturation ABG Base Excess -8.5 L ABG Hemoglobin 7.8 L Oxyhemoglobin Carboxyhemoglobin Sodium Potassium Chloride Carbon Dioxide BUN Glucose POC Glucose 64 L Lactic Acid Calcium Ferritin AST ALT Alkaline Phosphatase Lactate Dehydrogenase Total Creatine Kinase CK-MB (CK-2) Rel Index Troponin T C-Reactive Protein Total Protein Albumin LDL Cholesterol Direct HDL Cholesterol Urine WBC (Auto) Vancomycin Trough Crossmatch 02/27/20 02/27/20 02/27/20 07:30 12:07 18:07 WBC RBC Hgb Hct MCH MCHC RDW Plt Count Lymph % (Auto) Lymph # (Auto) Seg Neutrophils % Seg Neuts % (Manual) Lymphocytes % (Manual) Nucleated RBC % Seg Neutrophils # Seg Neutrophils # Man Lymphocytes # (Manual) PT INR D-Dimer ABG pH POC ABG pCO2 POC ABG pO2 ABG pO2 ABG HCO3 ABG O2 Saturation ABG Base Excess ABG Hemoglobin Oxyhemoglobin Carboxyhemoglobin Sodium 146 H Potassium Chloride 115.0 H Carbon Dioxide 17 L BUN 29 H Glucose 72 L POC Glucose 116 H 63 L Lactic Acid Calcium 7.9 L Ferritin AST 118 H ALT Alkaline Phosphatase 273 H Lactate Dehydrogenase Total Creatine Kinase CK-MB (CK-2) Rel Index Troponin T C-Reactive Protein Total Protein 5.3 L D Albumin 2.0 L LDL Cholesterol Direct HDL Cholesterol Urine WBC (Auto) Vancomycin Trough Crossmatch 02/27/20 02/28/20 02/28/20 23:41 04:30 05:30 WBC 12.5 H RBC 2.99 L Hgb 8.0 L Hct 26.6 L MCH 27 L MCHC 30 L RDW 24.8 H Plt Count Lymph % (Auto) 7.5 L Lymph # (Auto) 0.9 L Seg Neutrophils % 86.9 H Seg Neuts % (Manual) Lymphocytes % (Manual) Nucleated RBC % Seg Neutrophils # 10.8 H Seg Neutrophils # Man Lymphocytes # (Manual) PT INR D-Dimer ABG pH 7.240 L POC ABG pCO2 POC ABG pO2 ABG pO2 ABG HCO3 ABG O2 Saturation ABG Base Excess ABG Hemoglobin 9.0 L Oxyhemoglobin Carboxyhemoglobin Sodium Potassium Chloride Carbon Dioxide BUN Glucose POC Glucose 131 H Lactic Acid Calcium Ferritin AST ALT Alkaline Phosphatase Lactate Dehydrogenase Total Creatine Kinase CK-MB (CK-2) Rel Index Troponin T C-Reactive Protein Total Protein Albumin LDL Cholesterol Direct HDL Cholesterol Urine WBC (Auto) Vancomycin Trough Crossmatch 02/28/20 02/28/20 02/28/20 06:00 09:00 17:25 WBC RBC Hgb Hct MCH MCHC RDW Plt Count Lymph % (Auto) Lymph # (Auto) Seg Neutrophils % Seg Neuts % (Manual) Lymphocytes % (Manual) Nucleated RBC % Seg Neutrophils # Seg Neutrophils # Man Lymphocytes # (Manual) PT INR D-Dimer ABG pH POC ABG pCO2 POC ABG pO2 ABG pO2 ABG HCO3 ABG O2 Saturation ABG Base Excess ABG Hemoglobin Oxyhemoglobin Carboxyhemoglobin Sodium Potassium Chloride Carbon Dioxide BUN Glucose POC Glucose 121 H 61 L Lactic Acid Calcium Ferritin AST ALT Alkaline Phosphatase Lactate Dehydrogenase Total Creatine Kinase CK-MB (CK-2) Rel Index Troponin T C-Reactive Protein Total Protein Albumin LDL Cholesterol Direct HDL Cholesterol Urine WBC (Auto) Vancomycin Trough 29.0 H Crossmatch 02/28/20 02/29/20 02/29/20 Unknown 04:32 05:17 WBC RBC Hgb Hct MCH MCHC RDW Plt Count Lymph % (Auto) Lymph # (Auto) Seg Neutrophils % Seg Neuts % (Manual) Lymphocytes % (Manual) Nucleated RBC % Seg Neutrophils # Seg Neutrophils # Man Lymphocytes # (Manual) PT INR D-Dimer ABG pH POC ABG pCO2 22.5 L POC ABG pO2 119.7 H ABG pO2 ABG HCO3 ABG O2 Saturation ABG Base Excess ABG Hemoglobin 10.5 L Oxyhemoglobin Carboxyhemoglobin 0.3 L Sodium Potassium Chloride 114.7 H Carbon Dioxide 14 L BUN 30 H Glucose POC Glucose Lactic Acid Calcium 7.8 L Ferritin AST 193 H ALT Alkaline Phosphatase 354 H Lactate Dehydrogenase Total Creatine Kinase CK-MB (CK-2) Rel Index Troponin T C-Reactive Protein Total Protein 5.6 L Albumin 2.0 L LDL Cholesterol Direct HDL Cholesterol Urine WBC (Auto) Vancomycin Trough Crossmatch 02/29/20 02/29/2020 05:29 11:16 11:16 WBC 15.1 H RBC Hgb 10.1 L Hct 32.8 L D MCH 27 L MCHC 31 L RDW 25.2 H Plt Count Lymph % (Auto) Lymph # (Auto) Seg Neutrophils % Seg Neuts % (Manual) 98.0 H Lymphocytes % (Manual) 1.0 L Nucleated RBC % 5.0 H Seg Neutrophils # Seg Neutrophils # Man 14.8 H Lymphocytes # (Manual) 0.2 L PT INR D-Dimer ABG pH POC ABG pCO2 POC ABG pO2 ABG pO2 ABG HCO3 ABG O2 Saturation ABG Base Excess ABG Hemoglobin Oxyhemoglobin Carboxyhemoglobin Sodium Potassium 3.5 L Chloride 111.7 H Carbon Dioxide 14 L BUN 33 H Glucose 180 H POC Glucose 125 H Lactic Acid Calcium 7.8 L Ferritin AST ALT Alkaline Phosphatase Lactate Dehydrogenase Total Creatine Kinase CK-MB (CK-2) Rel Index Troponin T C-Reactive Protein Total Protein Albumin LDL Cholesterol Direct HDL Cholesterol Urine WBC (Auto) Vancomycin Trough Crossmatch 02/29/20 02/29/20 02/29/20 12:55 17:53 23:38 WBC RBC Hgb Hct MCH MCHC RDW Plt Count Lymph % (Auto) Lymph # (Auto) Seg Neutrophils % Seg Neuts % (Manual) Lymphocytes % (Manual) Nucleated RBC % Seg Neutrophils # Seg Neutrophils # Man Lymphocytes # (Manual) PT INR D-Dimer ABG pH POC ABG pCO2 POC ABG pO2 ABG pO2 ABG HCO3 ABG O2 Saturation ABG Base Excess ABG Hemoglobin Oxyhemoglobin Carboxyhemoglobin Sodium Potassium Chloride Carbon Dioxide BUN Glucose POC Glucose 134 H 145 H 127 H Lactic Acid Calcium Ferritin AST ALT Alkaline Phosphatase Lactate Dehydrogenase Total Creatine Kinase CK-MB (CK-2) Rel Index Troponin T C-Reactive Protein Total Protein Albumin LDL Cholesterol Direct HDL Cholesterol Urine WBC (Auto) Vancomycin Trough Crossmatch 03/01/20 03/01/20 03/01/20 03:46 05:44 07:55 WBC 14.0 H RBC Hgb 10.0 L Hct 32.3 L MCH 27 L MCHC 31 L RDW 25.4 H Plt Count 99 L Lymph % (Auto) Lymph # (Auto) Seg Neutrophils % Seg Neuts % (Manual) Lymphocytes % (Manual) Nucleated RBC % Seg Neutrophils # Seg Neutrophils # Man Lymphocytes # (Manual) PT INR D-Dimer ABG pH 7.288 L POC ABG pCO2 POC ABG pO2 ABG pO2 ABG HCO3 11.7 L ABG O2 Saturation ABG Base Excess -13.3 L ABG Hemoglobin Oxyhemoglobin Carboxyhemoglobin Sodium Potassium Chloride Carbon Dioxide BUN Glucose POC Glucose 177 H Lactic Acid Calcium Ferritin AST ALT Alkaline Phosphatase Lactate Dehydrogenase Total Creatine Kinase CK-MB (CK-2) Rel Index Troponin T C-Reactive Protein Total Protein Albumin LDL Cholesterol Direct HDL Cholesterol Urine WBC (Auto) Vancomycin Trough Crossmatch 03/01/20 03/01/20 03/01/20 07:55 12:14 18:07 WBC RBC Hgb Hct MCH MCHC RDW Plt Count Lymph % (Auto) Lymph # (Auto) Seg Neutrophils % Seg Neuts % (Manual) Lymphocytes % (Manual) Nucleated RBC % Seg Neutrophils # Seg Neutrophils # Man Lymphocytes # (Manual) PT INR D-Dimer ABG pH POC ABG pCO2 POC ABG pO2 ABG pO2 ABG HCO3 ABG O2 Saturation ABG Base Excess ABG Hemoglobin Oxyhemoglobin Carboxyhemoglobin Sodium Potassium Chloride 111.5 H Carbon Dioxide 16 L BUN 36 H Glucose 157 H POC Glucose 163 H 109 H Lactic Acid Calcium 7.9 L Ferritin AST ALT Alkaline Phosphatase Lactate Dehydrogenase Total Creatine Kinase CK-MB (CK-2) Rel Index Troponin T C-Reactive Protein Total Protein Albumin LDL Cholesterol Direct HDL Cholesterol Urine WBC (Auto) Vancomycin Trough Crossmatch 03/01/20 03/02/20 03/02/20 23:55 05:42 12:02 WBC RBC Hgb Hct MCH MCHC RDW Plt Count Lymph % (Auto) Lymph # (Auto) Seg Neutrophils % Seg Neuts % (Manual) Lymphocytes % (Manual) Nucleated RBC % Seg Neutrophils # Seg Neutrophils # Man Lymphocytes # (Manual) PT INR D-Dimer ABG pH POC ABG pCO2 POC ABG pO2 ABG pO2 ABG HCO3 ABG O2 Saturation ABG Base Excess ABG Hemoglobin Oxyhemoglobin Carboxyhemoglobin Sodium Potassium Chloride Carbon Dioxide BUN Glucose POC Glucose 132 H 146 H 147 H Lactic Acid Calcium Ferritin AST ALT Alkaline Phosphatase Lactate Dehydrogenase Total Creatine Kinase CK-MB (CK-2) Rel Index Troponin T C-Reactive Protein Total Protein Albumin LDL Cholesterol Direct HDL Cholesterol Urine WBC (Auto) Vancomycin Trough Crossmatch 03/02/20 03/03/20 03/03/20 17:59 00:28 04:52 WBC 13.3 H RBC Hgb 9.9 L Hct 32.2 L MCH 27 L MCHC 31 L RDW 25.8 H Plt Count 67 L Lymph % (Auto) Lymph # (Auto) Seg Neutrophils % Seg Neuts % (Manual) Lymphocytes % (Manual) Nucleated RBC % Seg Neutrophils # Seg Neutrophils # Man Lymphocytes # (Manual) PT INR D-Dimer ABG pH POC ABG pCO2 POC ABG pO2 ABG pO2 ABG HCO3 ABG O2 Saturation ABG Base Excess ABG Hemoglobin Oxyhemoglobin Carboxyhemoglobin Sodium Potassium Chloride Carbon Dioxide BUN Glucose POC Glucose 113 H 114 H Lactic Acid Calcium Ferritin AST ALT Alkaline Phosphatase Lactate Dehydrogenase Total Creatine Kinase CK-MB (CK-2) Rel Index Troponin T C-Reactive Protein Total Protein Albumin LDL Cholesterol Direct HDL Cholesterol Urine WBC (Auto) Vancomycin Trough Crossmatch 03/03/20 04:52 WBC RBC Hgb Hct MCH MCHC RDW Plt Count Lymph % (Auto) Lymph # (Auto) Seg Neutrophils % Seg Neuts % (Manual) Lymphocytes % (Manual) Nucleated RBC % Seg Neutrophils # Seg Neutrophils # Man Lymphocytes # (Manual) PT INR D-Dimer ABG pH POC ABG pCO2 POC ABG pO2 ABG pO2 ABG HCO3 ABG O2 Saturation ABG Base Excess ABG Hemoglobin Oxyhemoglobin Carboxyhemoglobin Sodium Potassium Chloride 112.7 H Carbon Dioxide 19 L BUN 35 H Glucose POC Glucose Lactic Acid Calcium Ferritin AST ALT Alkaline Phosphatase Lactate Dehydrogenase Total Creatine Kinase CK-MB (CK-2) Rel Index Troponin T C-Reactive Protein Total Protein Albumin LDL Cholesterol Direct HDL Cholesterol Urine WBC (Auto) Vancomycin Trough Crossmatch
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
[2020-03-04] MEDS: HALOPERIDOL LACTATE 5 MG/1 ML INJ IV SCH ×4 (00:04→18:37)
[2020-03-04] MEDS ORDERED: SODIUM CHLORIDE 0.9% 500 ML 500 ML IV ONE (00:46)
[2020-03-04] MEDS ORDERED: SODIUM CHLORIDE 0.9% 250ML 250 ML IV ONE (01:27)
[2020-03-04] MEDS: SODIUM CHLORIDE 0.9% 1000 ML 1,000 ML IV SCH ×3 (01:42→20:44)
[2020-03-04] MEDS: NORepinephrine/NS 4 MG-250 ML 4 MG/250 ML BAG IV SCH ×2 (02:31→18:34)
[2020-03-04] MEDS: METHADONE 10 MG TAB PO SCH ×3 (06:15→21:29)
[2020-03-04] MEDS: HYDROmorphone 2 MG/1 ML INJ IV PRN ×3 (07:50→17:04)
--- NOTE | 2020-03-04 09:39 | Progress Note ---
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 Simple Syrup 30 ml 02/27/20 10:25 Simple Syrup FEEDTUBE PRN PRN Hypoglycemia Sodium Bicarbonate 325 mg 02/27/20 10:25 Sodium Bicarbonate FEEDTUBE PRN PRN For Clogged Feeding Tube Sodium Chloride 10 ml 02/25/20 10:00 03/03/20 22:00 Sodium Chloride Flush Syringe 10 Ml IV 10 ml BID AIDEE Administration Sodium Chloride 10 ml 02/25/20 04:16 Sodium Chloride Flush Syringe 10 Ml IV PRN PRN LINE FLUSH Spironolactone 25 mg 03/03/20 10:00 03/03/20 09:40 Aldactone PO 25 mg QDAY AIDEE Administration Nutrition/Malnutrition Assess - Dietary Evaluation Nutrition/Malnutrition Findings: Nutrition Notes Start: 02/25/20 10:14 Freq: Status: Active Protocol: Document 03/03/20 11:15 DAYANARA (Rec: 03/03/20 11:42 DAYANARA [id number]) Co-Sign 03/03/20 11:15 SHUBHAM Nutrition Notes Initial or Follow up Reassessment Current Diagnosis Decubitus(Pressure Ulcer), Sepsis,Respiratory Failure Other Pertinent Diagnosis Pneu, UTI, anemia, paraplegia, buttocks PU,Pulmonary TB Current Diet Osmolite 1.5 at 50ml/hr Labs/Tests Reviewed Pertinent Medications Vitamin B6 Height 5 ft 9 in Weight 45.359 kg [place] Body Weight (kg) 72.72 BMI 14.8 Weight Status Underweight Subjective/Other Information F/U stable TF. Pt TF not running at time of visit. Per RN, pt pulled out NG tube, tube being replaced. DEPUTY CORONER INVESTIGATOR recommends NPO until pt stable . Percent of energy/protein needs met: 0%/0% Burn Absent Trauma Absent Current % PO Negligible Minimum of two criteria Yes Muscle Mass Mild Depletion (non-severe) Fluid Accumulation Moderate to Severe (severe) Reduced Histology Aide Strength Measurably Reduced (severe) #3 Nutrition Diagnosis Increased nutrient needs ( specify in comment below) Diagnosis Progress(for reassessment Continues documentation) #2 Nutrition Diagnosis Inadequate oral intake Etiology Pt removed NG tube As Evidenced by Signs and Symptoms Per DEPUTY CORONER INVESTIGATOR, pt NPO Diagnosis Progress(for reassessment Continues documentation) #1 Nutrition Diagnosis Malnutrition Diagnosis Progress(for reassessment Continues documentation) Is patient on ventilator? No Is Patient Ambulatory and/or Out of Bed No REE-([facility]-confined to bed) 1592.628 Kcal/Kg value to use for calculation 42 Approximate Energy Requirements Using 1905 kcal/Kg Calculation Used for Recommendations Kcal/kg Additional Notes Protein: 54-68g (1.2-1.5g/kg) Fluid: 1ml/kcal Nutrition Intervention Change Diet Order: Continue TF Nutrition Support: Osmolite 1.5 at 50ml/hr Flush 150ml q4h Kcal 1,800 Protein (gm) 75 Fluid (mL) 914 Goal #1 TF tolerance Goal #2 Meet at least 100% of energy and protein needs via TF. Goal #3 Wound healing Goal #4 Wt maintenance or wt gain Anticipated Discharge Needs: Unable to determine at this time Follow-Up By: 03/07/20 Additional Comments F/U NG tube replacement, stable TF, plan of care
[2020-03-04] MEDS: ETHAMBUTOL 400 MG TAB PO SCH (10:15)
[2020-03-04] MEDS: AMIODARONE 200 MG TAB PO SCH (10:16)
[2020-03-04] MEDS: SENNOSIDES/DOCUSATE SODIUM 8.6/50 MG TAB PO SCH ×2 (10:16→21:21)
[2020-03-04] MEDS: SPIRONOLACTONE 25 MG TAB PO SCH (10:16)
[2020-03-04] MEDS: FAMOTIDINE 20 MG TAB PO SCH ×2 (10:17→21:21)
[2020-03-04] MEDS: FUROSEMIDE 40 MG TAB PO SCH (10:17)
[2020-03-04] MEDS: ISONIAZID 300 MG TAB PO SCH (10:18)
[2020-03-04] MEDS: rifAMPin 300 MG CAP PO SCH (10:18)
[2020-03-04] MEDS: PYRIDOXINE 50 MG TAB PO SCH (10:18)
[2020-03-04] MEDS: PYRAZINAMIDE 500 MG TAB PO SCH (10:18)
[2020-03-04] MEDS: carvediloL 6.25 MG TAB PO SCH ×2 (10:50→21:28)
[2020-03-04] MEDS: LISINOPRIL 5 MG TAB PO SCH (10:50)
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
--- NOTE | 2020-03-04 15:36 | Progress Note ---
Assessment and Plan 44 y/o male admitted with hypoxemia, fever and brody catheter pain, subsequent cardiac arrest in the ED, resuscitated and intubated, now with hypotension, anion gap metabolic acidosis, acute respiratory failure, hypoglycemia and vtach/vfib, found to have severe left sided heart disease, severe congestive heart failure. Patient now have become hypotensive requiring vasopressors. Rales are noted on auscultation of the lungs bilaterally. Possible fluid overload patient has been receiving normal saline 125 cc/h for low blood pressure. Also cannot rule out possibility of pneumonia. 1. Pulm-Continue high flow NC. Cards has added lasix and spironolactone so this should help with volume status. Also now on BB as well. Will check CXR for the AM. of isolation now for TB. Continue ICU monitoring unless in a bed crunch, and then would prefer IMCU. 2. CV-severe systolic heart failure. Cards following. They have added medic ations to the regimen. 3. Heme-Anemia. Etiology unknown. Could be from chronic disease. Thromboc ytopenia. Stopped all heparin products and HIT panel is pending. 4. Renal- No labs today. 5. Endo-restarted feeds via NG/Dobb laquita tube 6. 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 Abx therapy stopped. 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 ID follows. 7. We will decrease the IV fluid rates to 75 cc/h. Repeat chest x-ray. Will order labs. 8. Prognosis is grave Will keep in ICU for now given tenuous respiratory state. CCT 31 minutes. Subjective Date of service: 03/04/20 Principal diagnosis: Acute respiratory failure Interval history: Patient noted to have low blood pressure requiring vasopressors at present. Respiratory rate is also noted to be high patient is on high flow nasal cannula with currently on 60% FiO2 with 40 L flow. Saturations are low 90s. There is no fever. A abdominal x-ray yesterday showed airspace disease in the lower lobes. Objective Vital Signs - 12hr 03/04/20 03/04/20 03/04/20 03:45 04:00 04:15 Temperature Pulse Rate 76 81 79 Pulse Rate [ From Monitor] Respiratory 17 28 H 22 Rate Blood Pressure 85/63 87/62 88/66 O2 Sat by Pulse 95 94 95 Oximetry 03/04/20 03/04/20 03/04/20 04:30 04:45 05:00 Temperature Pulse Rate 76 75 63 Pulse Rate [ 74 From Monitor] Respiratory 23 14 23 Rate Blood Pressure 85/61 85/62 89/61 O2 Sat by Pulse 94 94 94 Oximetry 03/04/20 03/04/20 03/04/20 05:15 05:30 05:45 Temperature Pulse Rate 78 82 83 Pulse Rate [ From Monitor] Respiratory 41 H 17 35 H Rate Blood Pressure 84/62 88/62 86/61 O2 Sat by Pulse 94 95 95 Oximetry 03/04/20 03/04/20 03/04/20 06:00 06:15 06:30 Temperature Pulse Rate 81 89 84 Pulse Rate [ From Monitor] Respiratory 24 14 17 Rate Blood Pressure 85/61 92/64 95/67 O2 Sat by Pulse 95 96 96 Oximetry 03/04/20 03/04/20 03/04/20 06:45 07:00 07:15 Temperature Pulse Rate 83 87 76 Pulse Rate [ From Monitor] Respiratory 21 27 H 27 H Rate Blood Pressure 91/66 98/72 94/68 O2 Sat by Pulse 96 95 95 Oximetry 03/04/20 03/04/20 03/04/20 07:30 07:45 08:00 Temperature Pulse Rate 82 87 88 Pulse Rate [ 84 From Monitor] Respiratory 28 H 43 H 26 H Rate Blood Pressure 98/70 94/71 97/69 O2 Sat by Pulse 95 96 97 Oximetry 03/04/20 03/04/20 03/04/20 08:15 08:30 08:40 Temperature 97.1 F L Pulse Rate 81 83 Pulse Rate [ From Monitor] Respiratory 16 22 Rate Blood Pressure 86/64 89/66 O2 Sat by Pulse 96 95 Oximetry 03/04/20 03/04/20 03/04/20 08:45 09:00 09:15 Temperature Pulse Rate 84 84 88 Pulse Rate [ From Monitor] Respiratory 29 H 21 21 Rate Blood Pressure 98/70 92/67 88/66 O2 Sat by Pulse 95 95 94 Oximetry 03/04/20 03/04/20 03/04/20 09:30 09:45 10:00 Temperature Pulse Rate 81 77 77 Pulse Rate [ From Monitor] Respiratory 20 15 28 H Rate Blood Pressure 92/61 87/64 86/57 O2 Sat by Pulse 94 93 93 Oximetry 03/04/20 03/04/20 03/04/20 10:15 10:16 10:30 Temperature Pulse Rate 88 76 83 Pulse Rate [ From Monitor] Respiratory 46 H 26 H Rate Blood Pressure 86/57 93/64 88/64 O2 Sat by Pulse 95 94 Oximetry 03/04/20 03/04/20 03/04/20 10:45 11:00 11:15 Temperature Pulse Rate 96 H 80 76 Pulse Rate [ From Monitor] Respiratory 14 25 H 25 H Rate Blood Pressure 92/62 92/62 87/61 O2 Sat by Pulse 95 94 95 Oximetry 03/04/20 03/04/20 03/04/20 11:23 11:30 11:45 Temperature Pulse Rate 76 91 H Pulse Rate [ 87 From Monitor] Respiratory 24 28 H 32 H Rate Blood Pressure 94/67 90/62 O2 Sat by Pulse 94 94 94 Oximetry 03/04/20 12:00 Temperature Pulse Rate 89 Pulse Rate [ From Monitor] Respiratory 42 H Rate Blood Pressure 88/69 O2 Sat by Pulse 95 Oximetry Constitutional: agitated, appears uncomfortable, other (on vent, critically ill) Eyes: icteric, injected ENT: other (orally intubated with poor dentition) Neck: supple, no JVD Effort: mildly labored, other (Tachypneic) Ascultation: Right: rhonchi (upper lobe), Bilateral: rales Percussion: Bilateral: not dull Cardiovascular: other (sinus tach) Gastrointestinal: normoactive bowel sounds, soft Extremities: other (per nursing report, decubitus ulcer) Neurologic: unable to assess CBC and BMP: 03/03/20 04:52 03/03/20 04:52 ABG, PT/INR, D-dimer: ABG ABG pH 7.288 pH Units (7.350-7.450) L 03/01/20 03:46 POC ABG pCO2 22.5 mmHg (32.0-48.0) L 02/29/20 05:17 ABG pCO2 24.9 mm Hg 03/01/20 03:46 POC ABG pO2 119.7 mmHg (83-108) H 02/29/20 05:17 ABG pO2 85.2 mm Hg (80.0-90.0) 03/01/20 03:46 POC ABG HCO3 11.8 02/29/20 05:17 ABG O2 Saturation 95.6 % (95.0-99.0) 03/01/20 03:46 PT/INR, D-dimer PT 17.9 Sec. (12.2-14.9) H 02/26/20 04:00 INR 1.46 (0.87-1.13) H 02/26/20 04:00 D-Dimer 3251.26 ng/mlDDU (0-234) H 02/25/20 03:37 Abnormal lab findings: Abnormal Labs 02/25/20 02/25/20 02/25/20 00:46 00:46 00:46 WBC RBC 3.22 L Hgb 8.9 L Hct 28.5 L MCH MCHC 31 L RDW 24.8 H Plt Count 452 H Lymph % (Auto) 9.1 L Lymph # (Auto) 0.9 L Seg Neutrophils % 86.6 H Seg Neuts % (Manual) Lymphocytes % (Manual) Nucleated RBC % Seg Neutrophils # 8.9 H Seg Neutrophils # Man Lymphocytes # (Manual) PT INR D-Dimer ABG pH POC ABG pCO2 POC ABG pO2 ABG pO2 ABG HCO3 ABG O2 Saturation ABG Base Excess ABG Hemoglobin Oxyhemoglobin Carboxyhemoglobin Sodium Potassium Chloride Carbon Dioxide BUN Glucose POC Glucose Lactic Acid 2.10 H* Calcium 8.3 L Ferritin AST ALT < 5 L Alkaline Phosphatase 187 H Lactate Dehydrogenase Total Creatine Kinase 28 L CK-MB (CK-2) Rel Index 8.5 H Troponin T 0.190 H* C-Reactive Protein Total Protein Albumin 2.5 L LDL Cholesterol Direct 45 L HDL Cholesterol 32 L Urine WBC (Auto) Vancomycin Trough Crossmatch 02/25/20 02/25/20 02/25/20 02:32 03:37 03:37 WBC RBC Hgb Hct MCH MCHC RDW Plt Count Lymph % (Auto) Lymph # (Auto) Seg Neutrophils % Seg Neuts % (Manual) Lymphocytes % (Manual) Nucleated RBC % Seg Neutrophils # Seg Neutrophils # Man Lymphocytes # (Manual) PT INR D-Dimer 3251.26 H ABG pH POC ABG pCO2 POC ABG pO2 ABG pO2 ABG HCO3 ABG O2 Saturation ABG Base Excess ABG Hemoglobin Oxyhemoglobin Carboxyhemoglobin Sodium Potassium Chloride Carbon Dioxide BUN Glucose 144 H POC Glucose Lactic Acid Calcium Ferritin AST ALT Alkaline Phosphatase Lactate Dehydrogenase 234 H Total Creatine Kinase CK-MB (CK-2) Rel Index Troponin T C-Reactive Protein 8.80 H Total Protein Albumin LDL Cholesterol Direct HDL Cholesterol Urine WBC (Auto) 68.0 H Vancomycin Trough Crossmatch 02/25/20 02/25/20 02/25/20 03:37 05:36 06:33 WBC RBC Hgb Hct MCH MCHC RDW Plt Count Lymph % (Auto) Lymph # (Auto) Seg Neutrophils % Seg Neuts % (Manual) Lymphocytes % (Manual) Nucleated RBC % Seg Neutrophils # Seg Neutrophils # Man Lymphocytes # (Manual) PT INR D-Dimer ABG pH POC ABG pCO2 POC ABG pO2 ABG pO2 ABG HCO3 ABG O2 Saturation ABG Base Excess ABG Hemoglobin Oxyhemoglobin Carboxyhemoglobin Sodium Potassium Chloride Carbon Dioxide BUN Glucose POC Glucose 234 H Lactic Acid Calcium Ferritin 450.5 H AST ALT Alkaline Phosphatase Lactate Dehydrogenase Total Creatine Kinase CK-MB (CK-2) Rel Index Troponin T 0.187 H* C-Reactive Protein Total Protein Albumin LDL Cholesterol Direct HDL Cholesterol Urine WBC (Auto) Vancomycin Trough Crossmatch 02/25/20 02/25/20 02/25/20 09:30 13:10 16:27 WBC RBC Hgb Hct MCH MCHC RDW Plt Count Lymph % (Auto) Lymph # (Auto) Seg Neutrophils % Seg Neuts % (Manual) Lymphocytes % (Manual) Nucleated RBC % Seg Neutrophils # Seg Neutrophils # Man Lymphocytes # (Manual) PT INR D-Dimer ABG pH 7.149 L* 7.256 L POC ABG pCO2 POC ABG pO2 ABG pO2 165.3 H 64.5 L ABG HCO3 17.2 L 17.4 L ABG O2 Saturation 85.2 L ABG Base Excess -11.0 L -9.0 L ABG Hemoglobin 7.5 L 8.4 L Oxyhemoglobin 83.4 L Carboxyhemoglobin Sodium Potassium Chloride Carbon Dioxide BUN Glucose POC Glucose Lactic Acid 3.20 H* Calcium Ferritin AST ALT Alkaline Phosphatase Lactate Dehydrogenase Total Creatine Kinase CK-MB (CK-2) Rel Index Troponin T C-Reactive Protein Total Protein Albumin LDL Cholesterol Direct HDL Cholesterol Urine WBC (Auto) Vancomycin Trough Crossmatch 02/26/20 02/26/20 02/26/20 04:00 04:00 04:00 WBC 20.4 H RBC 2.61 L Hgb 7.0 L Hct 24.5 L MCH 27 L MCHC 29 L RDW 25.1 H Plt Count Lymph % (Auto) Lymph # (Auto) Seg Neutrophils % Seg Neuts % (Manual) 92.0 H Lymphocytes % (Manual) 4.0 L Nucleated RBC % Seg Neutrophils # Seg Neutrophils # Man 18.8 H Lymphocytes # (Manual) 0.8 L PT 17.9 H INR 1.46 H D-Dimer ABG pH POC ABG pCO2 POC ABG pO2 ABG pO2 ABG HCO3 ABG O2 Saturation ABG Base Excess ABG Hemoglobin Oxyhemoglobin Carboxyhemoglobin Sodium Potassium Chloride 111.1 H Carbon Dioxide 14 L D BUN 29 H Glucose 57 L POC Glucose Lactic Acid Calcium 7.8 L Ferritin AST ALT Alkaline Phosphatase Lactate Dehydrogenase Total Creatine Kinase CK-MB (CK-2) Rel Index Troponin T C-Reactive Protein Total Protein Albumin LDL Cholesterol Direct HDL Cholesterol Urine WBC (Auto) Vancomycin Trough Crossmatch 02/26/20 02/26/20 02/26/20 04:20 07:13 09:20 WBC RBC Hgb Hct MCH MCHC RDW Plt Count Lymph % (Auto) Lymph # (Auto) Seg Neutrophils % Seg Neuts % (Manual) Lymphocytes % (Manual) Nucleated RBC % Seg Neutrophils # Seg Neutrophils # Man Lymphocytes # (Manual) PT INR D-Dimer ABG pH 7.269 L POC ABG pCO2 POC ABG pO2 ABG pO2 236.1 H ABG HCO3 13.9 L ABG O2 Saturation 99.3 H ABG Base Excess -11.9 L ABG Hemoglobin 7.2 L Oxyhemoglobin Carboxyhemoglobin Sodium Potassium Chloride Carbon Dioxide BUN Glucose POC Glucose 52 L Lactic Acid Calcium Ferritin AST ALT Alkaline Phosphatase Lactate Dehydrogenase Total Creatine Kinase CK-MB (CK-2) Rel Index Troponin T C-Reactive Protein Total Protein Albumin LDL Cholesterol Direct HDL Cholesterol Urine WBC (Auto) Vancomycin Trough Crossmatch See Detail 02/27/20 02/27/20 02/27/20 04:59 05:40 07:30 WBC 16.6 H RBC 3.07 L Hgb 8.4 L Hct 27.4 L MCH MCHC 31 L RDW 24.4 H Plt Count Lymph % (Auto) Lymph # (Auto) Seg Neutrophils % Seg Neuts % (Manual) Lymphocytes % (Manual) Nucleated RBC % Seg Neutrophils # Seg Neutrophils # Man Lymphocytes # (Manual) PT INR D-Dimer ABG pH 7.306 L POC ABG pCO2 POC ABG pO2 ABG pO2 149.6 H ABG HCO3 17.0 L ABG O2 Saturation ABG Base Excess -8.5 L ABG Hemoglobin 7.8 L Oxyhemoglobin Carboxyhemoglobin Sodium Potassium Chloride Carbon Dioxide BUN Glucose POC Glucose 64 L Lactic Acid Calcium Ferritin AST ALT Alkaline Phosphatase Lactate Dehydrogenase Total Creatine Kinase CK-MB (CK-2) Rel Index Troponin T C-Reactive Protein Total Protein Albumin LDL Cholesterol Direct HDL Cholesterol Urine WBC (Auto) Vancomycin Trough Crossmatch 02/27/20 02/27/20 02/27/20 07:30 12:07 18:07 WBC RBC Hgb Hct MCH MCHC RDW Plt Count Lymph % (Auto) Lymph # (Auto) Seg Neutrophils % Seg Neuts % (Manual) Lymphocytes % (Manual) Nucleated RBC % Seg Neutrophils # Seg Neutrophils # Man Lymphocytes # (Manual) PT INR D-Dimer ABG pH POC ABG pCO2 POC ABG pO2 ABG pO2 ABG HCO3 ABG O2 Saturation ABG Base Excess ABG Hemoglobin Oxyhemoglobin Carboxyhemoglobin Sodium 146 H Potassium Chloride 115.0 H Carbon Dioxide 17 L BUN 29 H Glucose 72 L POC Glucose 116 H 63 L Lactic Acid Calcium 7.9 L Ferritin AST 118 H ALT Alkaline Phosphatase 273 H Lactate Dehydrogenase Total Creatine Kinase CK-MB (CK-2) Rel Index Troponin T C-Reactive Protein Total Protein 5.3 L D Albumin 2.0 L LDL Cholesterol Direct HDL Cholesterol Urine WBC (Auto) Vancomycin Trough Crossmatch 02/27/20 02/28/20 02/28/20 23:41 04:30 05:30 WBC 12.5 H RBC 2.99 L Hgb 8.0 L Hct 26.6 L MCH 27 L MCHC 30 L RDW 24.8 H Plt Count Lymph % (Auto) 7.5 L Lymph # (Auto) 0.9 L Seg Neutrophils % 86.9 H Seg Neuts % (Manual) Lymphocytes % (Manual) Nucleated RBC % Seg Neutrophils # 10.8 H Seg Neutrophils # Man Lymphocytes # (Manual) PT INR D-Dimer ABG pH 7.240 L POC ABG pCO2 POC ABG pO2 ABG pO2 ABG HCO3 ABG O2 Saturation ABG Base Excess ABG Hemoglobin 9.0 L Oxyhemoglobin Carboxyhemoglobin Sodium Potassium Chloride Carbon Dioxide BUN Glucose POC Glucose 131 H Lactic Acid Calcium Ferritin AST ALT Alkaline Phosphatase Lactate Dehydrogenase Total Creatine Kinase CK-MB (CK-2) Rel Index Troponin T C-Reactive Protein Total Protein Albumin LDL Cholesterol Direct HDL Cholesterol Urine WBC (Auto) Vancomycin Trough Crossmatch 02/28/20 02/28/20 02/28/20 06:00 09:00 17:25 WBC RBC Hgb Hct MCH MCHC RDW Plt Count Lymph % (Auto) Lymph # (Auto) Seg Neutrophils % Seg Neuts % (Manual) Lymphocytes % (Manual) Nucleated RBC % Seg Neutrophils # Seg Neutrophils # Man Lymphocytes # (Manual) PT INR D-Dimer ABG pH POC ABG pCO2 POC ABG pO2 ABG pO2 ABG HCO3 ABG O2 Saturation ABG Base Excess ABG Hemoglobin Oxyhemoglobin Carboxyhemoglobin Sodium Potassium Chloride Carbon Dioxide BUN Glucose POC Glucose 121 H 61 L Lactic Acid Calcium Ferritin AST ALT Alkaline Phosphatase Lactate Dehydrogenase Total Creatine Kinase CK-MB (CK-2) Rel Index Troponin T C-Reactive Protein Total Protein Albumin LDL Cholesterol Direct HDL Cholesterol Urine WBC (Auto) Vancomycin Trough 29.0 H Crossmatch 02/28/20 02/29/20 02/29/20 Unknown 04:32 05:17 WBC RBC Hgb Hct MCH MCHC RDW Plt Count Lymph % (Auto) Lymph # (Auto) Seg Neutrophils % Seg Neuts % (Manual) Lymphocytes % (Manual) Nucleated RBC % Seg Neutrophils # Seg Neutrophils # Man Lymphocytes # (Manual) PT INR D-Dimer ABG pH POC ABG pCO2 22.5 L POC ABG pO2 119.7 H ABG pO2 ABG HCO3 ABG O2 Saturation ABG Base Excess ABG Hemoglobin 10.5 L Oxyhemoglobin Carboxyhemoglobin 0.3 L Sodium Potassium Chloride 114.7 H Carbon Dioxide 14 L BUN 30 H Glucose POC Glucose Lactic Acid Calcium 7.8 L Ferritin AST 193 H ALT Alkaline Phosphatase 354 H Lactate Dehydrogenase Total Creatine Kinase CK-MB (CK-2) Rel Index Troponin T C-Reactive Protein Total Protein 5.6 L Albumin 2.0 L LDL Cholesterol Direct HDL Cholesterol Urine WBC (Auto) Vancomycin Trough Crossmatch 02/29/20 02/29/20 02/29/20 05:29 11:16 11:16 WBC 15.1 H RBC Hgb 10.1 L Hct 32.8 L D MCH 27 L MCHC 31 L RDW 25.2 H Plt Count Lymph % (Auto) Lymph # (Auto) Seg Neutrophils % Seg Neuts % (Manual) 98.0 H Lymphocytes % (Manual) 1.0 L Nucleated RBC % 5.0 H Seg Neutrophils # Seg Neutrophils # Man 14.8 H Lymphocytes # (Manual) 0.2 L PT INR D-Dimer ABG pH POC ABG pCO2 POC ABG pO2 ABG pO2 ABG HCO3 ABG O2 Saturation ABG Base Excess ABG Hemoglobin Oxyhemoglobin Carboxyhemoglobin Sodium Potassium 3.5 L Chloride 111.7 H Carbon Dioxide 14 L BUN 33 H Glucose 180 H POC Glucose 125 H Lactic Acid Calcium 7.8 L Ferritin AST ALT Alkaline Phosphatase Lactate Dehydrogenase Total Creatine Kinase CK-MB (CK-2) Rel Index Troponin T C-Reactive Protein Total Protein Albumin LDL Cholesterol Direct HDL Cholesterol Urine WBC (Auto) Vancomycin Trough Crossmatch 02/29/20 02/29/20 02/29/20 12:55 17:53 23:38 WBC RBC Hgb Hct MCH MCHC RDW Plt Count Lymph % (Auto) Lymph # (Auto) Seg Neutrophils % Seg Neuts % (Manual) Lymphocytes % (Manual) Nucleated RBC % Seg Neutrophils # Seg Neutrophils # Man Lymphocytes # (Manual) PT INR D-Dimer ABG pH POC ABG pCO2 POC ABG pO2 ABG pO2 ABG HCO3 ABG O2 Saturation ABG Base Excess ABG Hemoglobin Oxyhemoglobin Carboxyhemoglobin Sodium Potassium Chloride Carbon Dioxide BUN Glucose POC Glucose 134 H 145 H 127 H Lactic Acid Calcium Ferritin AST ALT Alkaline Phosphatase Lactate Dehydrogenase Total Creatine Kinase CK-MB (CK-2) Rel Index Troponin T C-Reactive Protein Total Protein Albumin LDL Cholesterol Direct HDL Cholesterol Urine WBC (Auto) Vancomycin Trough Crossmatch 03/01/20 03/01/20 03/01/20 03:46 05:44 07:55 WBC 14.0 H RBC Hgb 10.0 L Hct 32.3 L MCH 27 L MCHC 31 L RDW 25.4 H Plt Count 99 L Lymph % (Auto) Lymph # (Auto) Seg Neutrophils % Seg Neuts % (Manual) Lymphocytes % (Manual) Nucleated RBC % Seg Neutrophils # Seg Neutrophils # Man Lymphocytes # (Manual) PT INR D-Dimer ABG pH 7.288 L POC ABG pCO2 POC ABG pO2 ABG pO2 ABG HCO3 11.7 L ABG O2 Saturation ABG Base Excess -13.3 L ABG Hemoglobin Oxyhemoglobin Carboxyhemoglobin Sodium Potassium Chloride Carbon Dioxide BUN Glucose POC Glucose 177 H Lactic Acid Calcium Ferritin AST ALT Alkaline Phosphatase Lactate Dehydrogenase Total Creatine Kinase CK-MB (CK-2) Rel Index Troponin T C-Reactive Protein Total Protein Albumin LDL Cholesterol Direct HDL Cholesterol Urine WBC (Auto) Vancomycin Trough Crossmatch 03/01/20 03/01/20 03/01/20 07:55 12:14 18:07 WBC RBC Hgb Hct MCH MCHC RDW Plt Count Lymph % (Auto) Lymph # (Auto) Seg Neutrophils % Seg Neuts % (Manual) Lymphocytes % (Manual) Nucleated RBC % Seg Neutrophils # Seg Neutrophils # Man Lymphocytes # (Manual) PT INR D-Dimer ABG pH POC ABG pCO2 POC ABG pO2 ABG pO2 ABG HCO3 ABG O2 Saturation ABG Base Excess ABG Hemoglobin Oxyhemoglobin Carboxyhemoglobin Sodium Potassium Chloride 111.5 H Carbon Dioxide 16 L BUN 36 H Glucose 157 H POC Glucose 163 H 109 H Lactic Acid Calcium 7.9 L Ferritin AST ALT Alkaline Phosphatase Lactate Dehydrogenase Total Creatine Kinase CK-MB (CK-2) Rel Index Troponin T C-Reactive Protein Total Protein Albumin LDL Cholesterol Direct HDL Cholesterol Urine WBC (Auto) Vancomycin Trough Crossmatch 03/01/20 03/02/20 03/02/20 23:55 05:42 12:02 WBC RBC Hgb Hct MCH MCHC RDW Plt Count Lymph % (Auto) Lymph # (Auto) Seg Neutrophils % Seg Neuts % (Manual) Lymphocytes % (Manual) Nucleated RBC % Seg Neutrophils # Seg Neutrophils # Man Lymphocytes # (Manual) PT INR D-Dimer ABG pH POC ABG pCO2 POC ABG pO2 ABG pO2 ABG HCO3 ABG O2 Saturation ABG Base Excess ABG Hemoglobin Oxyhemoglobin Carboxyhemoglobin Sodium Potassium Chloride Carbon Dioxide BUN Glucose POC Glucose 132 H 146 H 147 H Lactic Acid Calcium Ferritin AST ALT Alkaline Phosphatase Lactate Dehydrogenase Total Creatine Kinase CK-MB (CK-2) Rel Index Troponin T C-Reactive Protein Total Protein Albumin LDL Cholesterol Direct HDL Cholesterol Urine WBC (Auto) Vancomycin Trough Crossmatch 03/02/20 03/03/20 03/03/20 17:59 00:28 04:52 WBC 13.3 H RBC Hgb 9.9 L Hct 32.2 L MCH 27 L MCHC 31 L RDW 25.8 H Plt Count 67 L Lymph % (Auto) Lymph # (Auto) Seg Neutrophils % Seg Neuts % (Manual) Lymphocytes % (Manual) Nucleated RBC % Seg Neutrophils # Seg Neutrophils # Man Lymphocytes # (Manual) PT INR D-Dimer ABG pH POC ABG pCO2 POC ABG pO2 ABG pO2 ABG HCO3 ABG O2 Saturation ABG Base Excess ABG Hemoglobin Oxyhemoglobin Carboxyhemoglobin Sodium Potassium Chloride Carbon Dioxide BUN Glucose POC Glucose 113 H 114 H Lactic Acid Calcium Ferritin AST ALT Alkaline Phosphatase Lactate Dehydrogenase Total Creatine Kinase CK-MB (CK-2) Rel Index Troponin T C-Reactive Protein Total Protein Albumin LDL Cholesterol Direct HDL Cholesterol Urine WBC (Auto) Vancomycin Trough Crossmatch 03/03/20 03/03/20 03/04/20 04:52 18:08 00:27 WBC RBC Hgb Hct MCH MCHC RDW Plt Count Lymph % (Auto) Lymph # (Auto) Seg Neutrophils % Seg Neuts % (Manual) Lymphocytes % (Manual) Nucleated RBC % Seg Neutrophils # Seg Neutrophils # Man Lymphocytes # (Manual) PT INR D-Dimer ABG pH POC ABG pCO2 POC ABG pO2 ABG pO2 ABG HCO3 ABG O2 Saturation ABG Base Excess ABG Hemoglobin Oxyhemoglobin Carboxyhemoglobin Sodium Potassium Chloride 112.7 H Carbon Dioxide 19 L BUN 35 H Glucose POC Glucose 119 H 120 H Lactic Acid Calcium Ferritin AST ALT Alkaline Phosphatase Lactate Dehydrogenase Total Creatine Kinase CK-MB (CK-2) Rel Index Troponin T C-Reactive Protein Total Protein Albumin LDL Cholesterol Direct HDL Cholesterol Urine WBC (Auto) Vancomycin Trough Crossmatch 03/04/20 03/04/20 05:52 12:17 WBC RBC Hgb Hct MCH MCHC RDW Plt Count Lymph % (Auto) Lymph # (Auto) Seg Neutrophils % Seg Neuts % (Manual) Lymphocytes % (Manual) Nucleated RBC % Seg Neutrophils # Seg Neutrophils # Man Lymphocytes # (Manual) PT INR D-Dimer ABG pH POC ABG pCO2 POC ABG pO2 ABG pO2 ABG HCO3 ABG O2 Saturation ABG Base Excess ABG Hemoglobin Oxyhemoglobin Carboxyhemoglobin Sodium Potassium Chloride Carbon Dioxide BUN Glucose POC Glucose 166 H 187 H Lactic Acid Calcium Ferritin AST ALT Alkaline Phosphatase Lactate Dehydrogenase Total Creatine Kinase CK-MB (CK-2) Rel Index Troponin T C-Reactive Protein Total Protein Albumin LDL Cholesterol Direct HDL Cholesterol Urine WBC (Auto) Vancomycin Trough Crossmatch
--- NOTE | 2020-03-04 16:03 | XRay Report ---
CHEST 1 VIEW, 03/04/2020 2:33 PM CLINICAL INFORMATION/INDICATION: Shortness of breath COMPARISON: Chest radiograph, 02/26/2020 at 8:37 AM FINDINGS: SUPPORT DEVICES: The right-sided PICC remains in stable position. The endotracheal tube and esophagog astric tube have been removed. HEART: There is stable enlargement of the cardiac silhouette. LUNGS/PLEURA: Airspace disease/consolidation and pleural effusion throughout the left hemithorax have worsened since the previous study. Airspace consolidation in the right mid lung with small right ple ural effusion remain grossly stable. ADDITIONAL FINDINGS: No additional acute findings. IMPRESSION: 1. Bilateral airspace disease/consolidation with bilateral pleural effusions. Left lung airspace dise ase and pleural effusion has worsened since the previous study. Signer Name: Tahira Medina MD Signed: 03/04/2020 3:59 PM Workstation Name: [id number]
[2020-03-04 17:05] LABS: Mean Corpuscular HGB Conc 29 % (32-34); Mean Corpuscular Volume 92 fl (84-94); Platelet Count 136 K/mm3 (140-440); Red Blood Count 3.57 M/mm3 (3.65-5.03)
[2020-03-04 17:18] LABS: Hematocrit 32.8 % (35.5-45.6); Hemoglobin 9.6 gm/dl (11.8-15.2); Red Cell Distribution Width 26.4 % (13.2-15.2)
--- NOTE | 2020-03-04 17:22 | Progress Note ---
Assessment and Plan Acute respiratory failure Bilateral pneumonia Dilated cardiomyopathy, uncertain chronicity LVEF 15 to 20% by echo this presentation Reports of Transient VF following multiple rounds of epi during code BLUE no strips available for review currently in sinus rhythm on amiodarone for suppression. Reported recent history of tuberculosis Paraplegia Continue amiodarone for suppression of arrhythmias. Guideline directed optimal medical therapy for dilated cardiomyopathy. Otherwise, conservative cardiac management. Subjective Date of service: 03/04/20 Principal diagnosis: Acute respiratory failure Interval history: No acute events Objective Vital Signs Temp Pulse Pulse Resp BP Pulse Ox 03/04/20 12:00 89 42 H 88/69 95 03/04/20 11:45 91 H 32 H 90/62 94 03/04/20 11:30 76 28 H 94/67 94 03/04/20 11:23 87 24 94 03/04/20 11:15 76 25 H 87/61 95 03/04/20 11:00 80 25 H 92/62 94 03/04/20 10:45 96 H 14 92/62 95 03/04/20 10:30 83 26 H 88/64 94 03/04/20 10:16 76 93/64 03/04/20 10:15 88 46 H 86/57 95 03/04/20 10:00 77 28 H 86/57 93 03/04/20 09:45 77 15 87/64 93 03/04/20 09:30 81 20 92/61 94 03/04/20 09:15 88 21 88/66 94 03/04/20 09:00 84 21 92/67 95 03/04/20 08:45 84 29 H 98/70 95 03/04/20 08:40 97.1 F L 03/04/20 08:30 83 22 89/66 95 03/04/20 08:15 81 16 86/64 96 03/04/20 08:00 88 84 26 H 97/69 97 03/04/20 07:45 87 43 H 94/71 96 03/04/20 07:30 82 28 H 98/70 95 03/04/20 07:15 76 27 H 94/68 95 03/04/20 07:00 87 27 H 98/72 95 03/04/20 06:45 83 21 91/66 96 03/04/20 06:30 84 17 95/67 96 03/04/20 06:15 89 14 92/64 96 03/04/20 06:00 81 24 85/61 95 03/04/20 05:45 83 35 H 86/61 95 03/04/20 05:30 82 17 88/62 95 03/04/20 05:15 78 41 H 84/62 94 03/04/20 05:00 63 74 23 89/61 94 03/04/20 04:45 75 14 85/62 94 03/04/20 04:30 76 23 85/61 94 03/04/20 04:15 79 22 88/66 95 03/04/20 04:00 81 28 H 87/62 94 03/04/20 03:45 76 17 85/63 95 03/04/20 03:31 97.4 F L 03/04/20 03:30 81 22 89/66 93 03/04/20 03:15 69 15 86/60 94 03/04/20 03:00 72 15 90/62 95 03/04/20 02:45 79 18 85/57 95 03/04/20 02:30 77 16 82/57 94 03/04/20 02:15 77 14 78/53 94 03/04/20 02:00 77 17 78/57 95 03/04/20 01:45 76 14 83/59 95 03/04/20 01:30 76 19 82/54 95 03/04/20 01:15 71 18 74/41 94 03/04/20 01:00 77 20 75/53 95 03/04/20 00:45 79 15 75/55 93 03/04/20 00:40 78 15 95 03/04/20 00:35 78 03/04/20 00:30 79 14 73/54 93 03/04/20 00:15 81 14 74/52 94 03/04/20 00:05 85 13 72/52 97 03/04/20 00:04 97 03/03/20 23:45 84 16 80/56 96 03/03/20 23:40 95.8 F L 03/03/20 23:15 85 16 84/61 96 03/03/20 23:00 86 15 88/63 96 03/03/20 22:45 90 18 87/66 96 03/03/20 22:30 88 14 91/68 96 03/03/20 22:15 88 16 84/60 96 03/03/20 22:00 91 H 14 92/67 97 03/03/20 21:59 93 H 93/67 03/03/20 21:45 88 18 93/67 97 03/03/20 21:30 90 22 94/69 96 03/03/20 21:15 88 19 92/66 96 03/03/20 21:00 92 H 24 98/70 95 03/03/20 20:45 87 17 94/66 96 03/03/20 20:30 83 15 90/65 96 03/03/20 20:23 95 03/03/20 20:20 90 22 97 03/03/20 20:15 83 20 85/59 95 03/03/20 20:00 97.6 F 87 18 90/62 96 03/03/20 19:45 88 22 94/66 94 03/03/20 19:30 86 18 95/72 96 03/03/20 19:15 79 17 87/66 96 03/03/20 19:00 89 16 92/70 96 03/03/20 18:45 79 11 L 86/64 95 03/03/20 18:30 81 16 87/66 96 03/03/20 18:15 79 32 H 90/69 96 03/03/20 18:00 81 38 H 86/67 96 03/03/20 17:45 79 36 H 92/69 95 03/03/20 17:30 83 38 H 100/69 96 - Physical Examination General: Other (ALERT,,GARBLED SPEECH) HEENT: Positive: PERRL Neck: Positive: neck supple Cardiac: Positive: Reg Rate and Rhythm Lungs: Positive: Decreased Breath Sounds, Rhonchi Abdomen: Positive: Soft Extremities: Present: edema (MILD) - Labs and Meds CBC 03/04/20 Range/Units 16:45 WBC 17.9 H (4.5-11.0) K/mm3 RBC 3.57 L (3.65-5.03) M/mm3 Hgb 9.6 L (11.8-15.2) gm/dl Hct 32.8 L (35.5-45.6) % Plt Count 136 L D (140-440) K/mm3 - Imaging and Cardiology EKG: report reviewed, image reviewed
[2020-03-04 17:25] LABS: Alanine Aminotransferase 19 units/L (7-56); Albumin 1.9 g/dL (3.9-5); BUN/Creatinine Ratio 35; Blood Urea Nitrogen 39 mg/dL (9-20); Calcium 8.4 mg/dL (8.4-10.2); Hemolysis Index 3
[2020-03-04 18:26] LABS: Basophils % (Manual) 0 % (0.0-1.8); Eosinophils % (Manual) 0 % (0.0-4.3); Total Cells Counted 100
[2020-03-04 18:27] LABS: Anisocytosis 2+; Crenated RBC Few; Dimorphic RBC Yes; Hypochromasia Few; Schistocytes Few
[2020-03-04] MEDS ORDERED: EPINEPHrine 1 MG/10 ML SYRINGE ONE (22:00)
--- NOTE | 2020-03-04 22:10 | Event Note ---
Date: 03/04/20 During this encounter, I had a complete personal protective equipment. I responded to an overhead CODE BLUE in the intensive care unit, and arrived to this patient's room, and found him to be in acute respiratory failure, requiring eyj-opwjy-clnd ventilation. The hospital physician, Dr. Joellen Julio, advises that this patient is a full code, and requests immediate endotracheal intubation. Patient receives [id number] ventilation, and is breathing adequately. Using a curved 3 video glide scope blade, the patient's trachea is easily visualized, and a 7.5 endotracheal tube is inserted, there is immediate post intubation condensation on the endotracheal tube, and appropriate post intubation color change. Breath sounds are appreciated bilaterally. X-ray of the chest will be performed, and we will defer to the inpatient team to follow this up. We will defer to the inpatient post intubation management to the inpatient team and the aforementioned and hospital physician.
--- NOTE | 2020-03-04 22:43 | Event Note ---
Date: 03/04/20 HORTENSIA ANGELIQUE was called on 44-year-old -[place] male who is paraplegic and has been on admission for severe sepsis, pneumonia and acute respiratory failure. Patient was said to be having agonal breathing and was in severe respiratory distress. Patient was successfully intubated by the ER physician. However after intubation patient went into PEA. Resuscitative Measures were commenced according to ACLS protocol. Patient had a around of epinephrine and there was spontaneous return of circulation. Patient will be closely monitored in the intensive care unit. We will check chest x-ray and ABG. Family to be informed of change in condition.
--- NOTE | 2020-03-04 23:08 | XRay Report ---
CHEST 1 VIEW INDICATION: ett placement COMPARISON: Earlier exam same day FINDINGS: Support devices: Endotracheal tube has been placed and is in good position. Nasogastric tube and righ t PICC line positions are unchanged. Heart: Mildly enlarged, unchanged Lungs/Pleura: Focal parenchymal disease in the right upper lung and more extensive disease in the lef t lung, unchanged. IMPRESSION: 1. No change in the appearance of the lungs following endotracheal tube placement. Signer Name: Randal Powell MD Signed: 03/04/2020 11:04 PM Workstation Name: [id number]
[2020-03-05] MEDS: HALOPERIDOL LACTATE 5 MG/1 ML INJ IV SCH ×4 (00:20→18:13)
[2020-03-05] MEDS: NORepinephrine/NS 4 MG-250 ML 4 MG/250 ML BAG IV SCH ×2 (01:29→10:00)
[2020-03-05 01:32] LABS: ABG Base Excess -7.3 mmol/L (-2.0-3.0); ABG HCO3 20.1 mmol/L (20.0-26.0); ABG Methemoglobin 0.5 % (0.0-1.5); ABG PCO2 49.7 mm Hg; ABG PH 7.225 pH Units (7.350-7.450); ABG PO2 178.8 mm Hg (80.0-90.0)
[2020-03-05] MEDS ORDERED: LIP THERAPY VASELINE TP PRN (01:44)
[2020-03-05] MEDS ORDERED: MINERAL OIL/PETROLATUM, WHITE OPHTH OINT 3.5 GM OU PRN (01:44)
[2020-03-05] MEDS ORDERED: MIDAZOLAM 100 MG in SODIUM CHLORIDE 0.9% 80 ML IV SCH (02:00)
[2020-03-05] MEDS: METHADONE 10 MG TAB PO SCH ×3 (05:38→21:13)
[2020-03-05 06:00] LABS: ABG Base Excess -6.3 mmol/L (-2.0-3.0); ABG HCO3 19.8 mmol/L (20.0-26.0); ABG Methemoglobin 0.5 % (0.0-1.5); ABG Oxygen Saturation 97.3 % (95.0-99.0); ABG PCO2 43.1 mm Hg; ABG PH 7.28 pH Units (7.350-7.450); ABG PO2 81.5 mm Hg (80.0-90.0)
[2020-03-05 06:14] LABS: Hematocrit 30.5 % (35.5-45.6); Hemoglobin 9.3 gm/dl (11.8-15.2); Mean Corpuscular HGB Conc 30 % (32-34); Mean Corpuscular Volume 89 fl (84-94); Platelet Count 130 K/mm3 (140-440); Red Blood Count 3.41 M/mm3 (3.65-5.03)
[2020-03-05 06:16] LABS: BUN/Creatinine Ratio 33; Blood Urea Nitrogen 43 mg/dL (9-20); Calcium 8.4 mg/dL (8.4-10.2); Hemolysis Index 1
--- NOTE | 2020-03-05 07:16 | Progress Note ---
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 300 mg 02/27/20 12:00 03/04/20 10:18 Isoniazid PO 300 mg QDAY AIDEE Administration Lisinopril 2.5 mg 03/03/20 10:00 03/04/20 10:50 Zestril PO Not Given QDAY [facility] Magnesium Hydroxide 30 ml 02/25/20 04:16 Milk Of Magnesia PO Q4H PRN Constipation Methadone HCl 10 mg 03/02/20 14:00 03/05/20 05:38 Dolophine PO Not Given Q8HR [facility] Multi-Ingred Cream/Lotion/Oil/Oint 1 applic 03/05/20 01:44 Artificial Tears Ophth Oint OU Q4HR PRN Dry Eye(s) Ondansetron HCl 4 mg 02/25/20 04:16 Zofran IV Q8H PRN Nausea And Vomiting Pyrazinamide 1,000 mg 02/29/20 10:00 03/04/20 10:18 Pyrazinamide PO 1,000 mg QDAY AIDEE Administration Pyridoxine HCl 50 mg 02/27/20 12:00 03/04/20 10:18 Vitamin B-6 PO 50 mg QDAY AIDEE Administration Rifampin 600 mg 02/27/20 12:00 03/04/20 10:18 Rifadin PO 600 mg QDAY [facility] Administration Senna/Docusate Sodium 2 tab 03/02/20 10:00 03/04/20 21:21 Senokot S PO 2 tab BID AIDEE Administration Simple Syrup 15 ml 02/27/20 10:25 Simple Syrup FEEDTUBE PRN PRN Hypoglycemia Simple Syrup 30 ml 02/27/20 10:25 Simple Syrup FEEDTUBE PRN PRN Hypoglycemia Sodium Bicarbonate 325 mg 02/27/20 10:25 Sodium Bicarbonate FEEDTUBE PRN PRN For Clogged Feeding Tube Sodium Chloride 10 ml 02/25/20 10:00 03/04/20 21:30 Sodium Chloride Flush Syringe 10 Ml IV 10 ml BID AIDEE Administration Sodium Chloride 10 ml 02/25/20 04:16 Sodium Chloride Flush Syringe 10 Ml IV PRN PRN LINE FLUSH Spironolactone 25 mg 03/03/20 10:00 03/04/20 10:16 Aldactone PO 25 mg QDAY AIDEE Administration Nutrition/Malnutrition Assess - Dietary Evaluation Nutrition/Malnutrition Findings: Nutrition Notes Start: 02/25/20 10:14 Freq: Status: Active Protocol: Document 03/03/20 11:15 DAYANARA (Rec: 03/03/20 11:42 DAYANARA [id number]) Co-Sign 03/03/20 11:15 MK Nutrition Notes Initial or Follow up Reassessment Current Diagnosis Decubitus(Pressure Ulcer), Sepsis,Respiratory Failure Other Pertinent Diagnosis Pneu, UTI, anemia, paraplegia, buttocks PU,Pulmonary TB Current Diet Osmolite 1.5 at 50ml/hr Labs/Tests Reviewed Pertinent Medications Vitamin B6 Height 5 ft 9 in Weight 45.359 kg [place] Body Weight (kg) 72.72 BMI 14.8 Weight Status Underweight Subjective/Other Information F/U stable TF. Pt TF not running at time of visit. Per RN, pt pulled out NG tube, tube being replaced. TRIPE COOKER recommends NPO until pt stable . Percent of energy/protein needs met: 0%/0% Burn Absent Trauma Absent Current % PO Negligible Minimum of two criteria Yes Muscle Mass Mild Depletion (non-severe) Fluid Accumulation Moderate to Severe (severe) Reduced Reporter Strength Measurably Reduced (severe) #3 Nutrition Diagnosis Increased nutrient needs ( specify in comment below) Diagnosis Progress(for reassessment Continues documentation) #2 Nutrition Diagnosis Inadequate oral intake Etiology Pt removed NG tube As Evidenced by Signs and Symptoms Per TRIPE COOKER, pt NPO Diagnosis Progress(for reassessment Continues documentation) #1 Nutrition Diagnosis Malnutrition Diagnosis Progress(for reassessment Continues documentation) Is patient on ventilator? No Is Patient Ambulatory and/or Out of Bed No [facility] 1592.628 Kcal/Kg value to use for calculation 42 Approximate Energy Requirements Using 1905 kcal/Kg Calculation Used for Recommendations Kcal/kg Additional Notes Protein: 54-68g (1.2-1.5g/kg) Fluid: 1ml/kcal Nutrition Intervention Change Diet Order: Continue TF Nutrition Support: Osmolite 1.5 at 50ml/hr Flush 150ml q4h Kcal 1,800 Protein (gm) 75 Fluid (mL) 914 Goal #1 TF tolerance Goal #2 Meet at least 100% of energy and protein needs via TF. Goal #3 Wound healing Goal #4 Wt maintenance or wt gain Anticipated Discharge Needs: Unable to determine at this time Follow-Up By: 03/07/20 Additional Comments F/U NG tube replacement, stable TF, plan of care
[2020-03-05] MEDS ORDERED: ACETYLCYSTEINE 20% 200 MG/1 ML *FOR INHALATION USE INHALATION NR (07:17)
[2020-03-05] MEDS ORDERED: ALBUTEROL 2.5 MG/3 ML NEBU IH PRN (08:20)
[2020-03-05] MEDS: GLYCOPYRROLATE 1 MG TAB PO SCH ×2 (09:17→21:13)
[2020-03-05] MEDS: SPIRONOLACTONE 25 MG TAB PO SCH (09:18)
[2020-03-05] MEDS: FUROSEMIDE 40 MG TAB PO SCH (09:18)
[2020-03-05] MEDS: PYRAZINAMIDE 500 MG TAB PO SCH (09:18)
[2020-03-05] MEDS: SENNOSIDES/DOCUSATE SODIUM 8.6/50 MG TAB PO SCH ×2 (09:18→21:13)
[2020-03-05] MEDS: AMIODARONE 200 MG TAB PO SCH (09:19)
[2020-03-05] MEDS: FAMOTIDINE 20 MG TAB PO SCH ×2 (09:19→21:13)
[2020-03-05] MEDS: ETHAMBUTOL 400 MG TAB PO SCH (09:19)
[2020-03-05] MEDS: rifAMPin 300 MG CAP PO SCH (09:19)
[2020-03-05] MEDS: PYRIDOXINE 50 MG TAB PO SCH (09:19)
[2020-03-05] MEDS: ISONIAZID 300 MG TAB PO SCH (09:19)
[2020-03-05] MEDS: SODIUM CHLORIDE 0.9% 1000 ML 1,000 ML IV SCH (10:56)
[2020-03-05] MEDS: carvediloL 6.25 MG TAB PO SCH ×2 (11:00→21:08)
[2020-03-05] MEDS: LISINOPRIL 5 MG TAB PO SCH (11:00)
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
[2020-03-05] MEDS ORDERED: VANCOMYCIN 750 MG in SODIUM CHLORIDE 0.9% 500 ML 500 ML IV ONE (13:15)
[2020-03-05] MEDS: HYDROmorphone 2 MG/1 ML INJ IV PRN ×2 (13:27→17:38)
--- NOTE | 2020-03-05 13:42 | Progress Note ---
Assessment and Plan 44 y/o male admitted with hypoxemia, fever and brody catheter pain, subsequent cardiac arrest in the ED, resuscitated and intubated, now with hypotension, anion gap metabolic acidosis, acute respiratory failure, hypoglycemia and vtach/vfib, found to have severe left sided heart disease, severe congestive heart failure. Patient now have become hypotensive requiring vasopressors. Rales are noted on auscultation of the lungs bilaterally. Possible fluid overload patient has been receiving normal saline 125 cc/h for low blood pressure. Also cannot rule out possibility of pneumonia. Patient was extubated 3 days ago however required reintubation last evening following a cardiorespiratory arrest. Appears to be more stable since intubated. On 50% FiO2. 1. Continue with mechanical ventilation at current settings. Patient has very mild respiratory and metabolic acidosis. 2. CV-severe systolic heart failure. Cards following. They have added medications to the regimen. 3. Heme-Anemia. Etiology unknown. Could be from chronic disease. Thrombocytopenia. Stopped all heparin products and HIT panel is pending. 4. Antibiotic currently on Merrem and vancomycin as per ID 5. Endo-restarted feeds via NG/Dobb laquita tube 6. 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 Abx therapy stopped. 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 ID follows. 7. We will decrease the IV fluid rates to 75 cc/h. Repeat chest x-ray. Will order labs. 8. Prognosis is grave 9. We will send sputum for Gram stain and C&S. CCT 31 minutes. Subjective Date of service: 03/05/20 Principal diagnosis: Acute respiratory failure Interval history: Last evening events were reviewed. Patient breathing got worse requiring intubation. Had PEA arrest requiring full CPR. Patient now intubated on mechanical ventilator. Low doses of vasopressors (Levophed at 2). Blood pressure and vital signs have remained stable at this time. Objective Vital Signs - 12hr 03/05/20 03/05/20 03/05/20 01:45 02:00 02:15 Temperature Pulse Rate 100 H 107 H 107 H Pulse Rate [ Anterior Bilateral Throughout] Respiratory 21 22 21 Rate Respiratory Rate [Anterior Bilateral Throughout] Blood Pressure 121/90 116/85 119/84 O2 Sat by Pulse 97 97 97 Oximetry 03/05/20 03/05/20 03/05/20 02:30 02:45 03:00 Temperature Pulse Rate 107 H 110 H 108 H Pulse Rate [ Anterior Bilateral Throughout] Respiratory 19 20 20 Rate Respiratory Rate [Anterior Bilateral Throughout] Blood Pressure 117/84 100/76 105/73 O2 Sat by Pulse 97 97 97 Oximetry 03/05/20 03/05/20 03/05/20 03:15 03:30 03:45 Temperature Pulse Rate 107 H 106 H 105 H Pulse Rate [ Anterior Bilateral Throughout] Respiratory 21 25 H 32 H Rate Respiratory Rate [Anterior Bilateral Throughout] Blood Pressure 102/76 97/70 101/69 O2 Sat by Pulse 96 98 98 Oximetry 03/05/20 03/05/20 03/05/20 03:50 04:00 04:15 Temperature 98.3 F Pulse Rate 106 H 104 H 103 H Pulse Rate [ Anterior Bilateral Throughout] Respiratory 24 37 H Rate Respiratory Rate [Anterior Bilateral Throughout] Blood Pressure 102/72 102/76 O2 Sat by Pulse 98 98 Oximetry 03/05/20 03/05/20 03/05/20 04:30 04:45 05:00 Temperature Pulse Rate 105 H 106 H 103 H Pulse Rate [ Anterior Bilateral Throughout] Respiratory 26 H 34 H 29 H Rate Respiratory Rate [Anterior Bilateral Throughout] Blood Pressure 104/77 108/78 104/78 O2 Sat by Pulse 98 98 99 Oximetry 03/05/20 03/05/20 03/05/20 05:15 05:30 05:45 Temperature Pulse Rate 105 H 101 H 97 H Pulse Rate [ Anterior Bilateral Throughout] Respiratory 31 H 25 H 25 H Rate Respiratory Rate [Anterior Bilateral Throughout] Blood Pressure 109/79 108/81 113/81 O2 Sat by Pulse 98 98 98 Oximetry 03/05/20 03/05/20 03/05/20 06:00 06:15 06:30 Temperature Pulse Rate 102 H 104 H 103 H Pulse Rate [ Anterior Bilateral Throughout] Respiratory 31 H 26 H 27 H Rate Respiratory Rate [Anterior Bilateral Throughout] Blood Pressure 116/83 120/89 125/84 O2 Sat by Pulse 98 99 98 Oximetry 03/05/20 03/05/20 03/05/20 08:00 08:24 09:18 Temperature 98.4 F Pulse Rate 94 H 104 H Pulse Rate [ Anterior Bilateral Throughout] Respiratory Rate Respiratory Rate [Anterior Bilateral Throughout] Blood Pressure 128/93 132/97 O2 Sat by Pulse 98 Oximetry 03/05/20 03/05/20 03/05/20 11:00 11:42 12:26 Temperature 99.8 F H Pulse Rate 59 L 100 H Pulse Rate [ Anterior Bilateral Throughout] Respiratory Rate Respiratory Rate [Anterior Bilateral Throughout] Blood Pressure 108/74 104/75 O2 Sat by Pulse 97 Oximetry 03/05/20 12:28 Temperature Pulse Rate Pulse Rate [ 100 H Anterior Bilateral Throughout] Respiratory Rate Respiratory 35 H Rate [Anterior Bilateral Throughout] Blood Pressure O2 Sat by Pulse Oximetry Constitutional: agitated, appears uncomfortable, other (on vent, critically ill) Eyes: icteric, injected ENT: other (orally intubated with poor dentition) Neck: supple, no JVD Effort: mildly labored, other (Tachypneic) Ascultation: Right: rhonchi (upper lobe), Bilateral: rales Percussion: Bilateral: not dull Cardiovascular: other (sinus tach) Gastrointestinal: normoactive bowel sounds, soft Extremities: other (per nursing report, decubitus ulcer) Neurologic: unable to assess CBC and BMP: 03/05/20 04:56 03/05/20 04:56 ABG, PT/INR, D-dimer: ABG ABG pH 7.280 pH Units (7.350-7.450) L 03/05/20 04:20 POC ABG pCO2 22.5 mmHg (32.0-48.0) L 02/29/20 05:17 ABG pCO2 43.1 mm Hg 03/05/20 04:20 POC ABG pO2 119.7 mmHg (83-108) H 02/29/20 05:17 ABG pO2 81.5 mm Hg (80.0-90.0) 03/05/20 04:20 POC ABG HCO3 11.8 02/29/20 05:17 ABG O2 Saturation 97.3 % (95.0-99.0) 03/05/20 04:20 PT/INR, D-dimer PT 17.9 Sec. (12.2-14.9) H 02/26/20 04:00 INR 1.46 (0.87-1.13) H 02/26/20 04:00 D-Dimer 3251.26 ng/mlDDU (0-234) H 02/25/20 03:37 Abnormal lab findings: Abnormal Labs 02/25/20 02/25/20 02/25/20 00:46 00:46 00:46 WBC RBC 3.22 L Hgb 8.9 L Hct 28.5 L MCH MCHC 31 L RDW 24.8 H Plt Count 452 H Lymph % (Auto) 9.1 L Lymph # (Auto) 0.9 L Seg Neutrophils % 86.6 H Seg Neuts % (Manual) Lymphocytes % (Manual) Nucleated RBC % Seg Neutrophils # 8.9 H Seg Neutrophils # Man Lymphocytes # (Manual) PT INR D-Dimer ABG pH POC ABG pCO2 POC ABG pO2 ABG pO2 ABG HCO3 ABG O2 Saturation ABG Base Excess ABG Hemoglobin Oxyhemoglobin Carboxyhemoglobin Sodium Potassium Chloride Carbon Dioxide BUN Glucose POC Glucose Lactic Acid 2.10 H* Calcium 8.3 L Ferritin AST ALT < 5 L Alkaline Phosphatase 187 H Lactate Dehydrogenase Total Creatine Kinase 28 L CK-MB (CK-2) Rel Index 8.5 H Troponin T 0.190 H* C-Reactive Protein Total Protein Albumin 2.5 L LDL Cholesterol Direct 45 L HDL Cholesterol 32 L Urine WBC (Auto) Vancomycin Trough Crossmatch 02/25/20 02/25/20 02/25/20 02:32 03:37 03:37 WBC RBC Hgb Hct MCH MCHC RDW Plt Count Lymph % (Auto) Lymph # (Auto) Seg Neutrophils % Seg Neuts % (Manual) Lymphocytes % (Manual) Nucleated RBC % Seg Neutrophils # Seg Neutrophils # Man Lymphocytes # (Manual) PT INR D-Dimer 3251.26 H ABG pH POC ABG pCO2 POC ABG pO2 ABG pO2 ABG HCO3 ABG O2 Saturation ABG Base Excess ABG Hemoglobin Oxyhemoglobin Carboxyhemoglobin Sodium Potassium Chloride Carbon Dioxide BUN Glucose 144 H POC Glucose Lactic Acid Calcium Ferritin AST ALT Alkaline Phosphatase Lactate Dehydrogenase 234 H Total Creatine Kinase CK-MB (CK-2) Rel Index Troponin T C-Reactive Protein 8.80 H Total Protein Albumin LDL Cholesterol Direct HDL Cholesterol Urine WBC (Auto) 68.0 H Vancomycin Trough Crossmatch 02/25/20 02/25/20 02/25/20 03:37 05:36 06:33 WBC RBC Hgb Hct MCH MCHC RDW Plt Count Lymph % (Auto) Lymph # (Auto) Seg Neutrophils % Seg Neuts % (Manual) Lymphocytes % (Manual) Nucleated RBC % Seg Neutrophils # Seg Neutrophils # Man Lymphocytes # (Manual) PT INR D-Dimer ABG pH POC ABG pCO2 POC ABG pO2 ABG pO2 ABG HCO3 ABG O2 Saturation ABG Base Excess ABG Hemoglobin Oxyhemoglobin Carboxyhemoglobin Sodium Potassium Chloride Carbon Dioxide BUN Glucose POC Glucose 234 H Lactic Acid Calcium Ferritin 450.5 H AST ALT Alkaline Phosphatase Lactate Dehydrogenase Total Creatine Kinase CK-MB (CK-2) Rel Index Troponin T 0.187 H* C-Reactive Protein Total Protein Albumin LDL Cholesterol Direct HDL Cholesterol Urine WBC (Auto) Vancomycin Trough Crossmatch 02/25/20 02/25/20 02/25/20 09:30 13:10 16:27 WBC RBC Hgb Hct MCH MCHC RDW Plt Count Lymph % (Auto) Lymph # (Auto) Seg Neutrophils % Seg Neuts % (Manual) Lymphocytes % (Manual) Nucleated RBC % Seg Neutrophils # Seg Neutrophils # Man Lymphocytes # (Manual) PT INR D-Dimer ABG pH 7.149 L* 7.256 L POC ABG pCO2 POC ABG pO2 ABG pO2 165.3 H 64.5 L ABG HCO3 17.2 L 17.4 L ABG O2 Saturation 85.2 L ABG Base Excess -11.0 L -9.0 L ABG Hemoglobin 7.5 L 8.4 L Oxyhemoglobin 83.4 L Carboxyhemoglobin Sodium Potassium Chloride Carbon Dioxide BUN Glucose POC Glucose Lactic Acid 3.20 H* Calcium Ferritin AST ALT Alkaline Phosphatase Lactate Dehydrogenase Total Creatine Kinase CK-MB (CK-2) Rel Index Troponin T C-Reactive Protein Total Protein Albumin LDL Cholesterol Direct HDL Cholesterol Urine WBC (Auto) Vancomycin Trough Crossmatch 02/26/20 02/26/20 02/26/20 04:00 04:00 04:00 WBC 20.4 H RBC 2.61 L Hgb 7.0 L Hct 24.5 L MCH 27 L MCHC 29 L RDW 25.1 H Plt Count Lymph % (Auto) Lymph # (Auto) Seg Neutrophils % Seg Neuts % (Manual) 92.0 H Lymphocytes % (Manual) 4.0 L Nucleated RBC % Seg Neutrophils # Seg Neutrophils # Man 18.8 H Lymphocytes # (Manual) 0.8 L PT 17.9 H INR 1.46 H D-Dimer ABG pH POC ABG pCO2 POC ABG pO2 ABG pO2 ABG HCO3 ABG O2 Saturation ABG Base Excess ABG Hemoglobin Oxyhemoglobin Carboxyhemoglobin Sodium Potassium Chloride 111.1 H Carbon Dioxide 14 L D BUN 29 H Glucose 57 L POC Glucose Lactic Acid Calcium 7.8 L Ferritin AST ALT Alkaline Phosphatase Lactate Dehydrogenase Total Creatine Kinase CK-MB (CK-2) Rel Index Troponin T C-Reactive Protein Total Protein Albumin LDL Cholesterol Direct HDL Cholesterol Urine WBC (Auto) Vancomycin Trough Crossmatch 02/26/20 02/26/20 02/26/20 04:20 07:13 09:20 WBC RBC Hgb Hct MCH MCHC RDW Plt Count Lymph % (Auto) Lymph # (Auto) Seg Neutrophils % Seg Neuts % (Manual) Lymphocytes % (Manual) Nucleated RBC % Seg Neutrophils # Seg Neutrophils # Man Lymphocytes # (Manual) PT INR D-Dimer ABG pH 7.269 L POC ABG pCO2 POC ABG pO2 ABG pO2 236.1 H ABG HCO3 13.9 L ABG O2 Saturation 99.3 H ABG Base Excess -11.9 L ABG Hemoglobin 7.2 L Oxyhemoglobin Carboxyhemoglobin Sodium Potassium Chloride Carbon Dioxide BUN Glucose POC Glucose 52 L Lactic Acid Calcium Ferritin AST ALT Alkaline Phosphatase Lactate Dehydrogenase Total Creatine Kinase CK-MB (CK-2) Rel Index Troponin T C-Reactive Protein Total Protein Albumin LDL Cholesterol Direct HDL Cholesterol Urine WBC (Auto) Vancomycin Trough Crossmatch See Detail 02/27/20 02/27/20 02/27/20 04:59 05:40 07:30 WBC 16.6 H RBC 3.07 L Hgb 8.4 L Hct 27.4 L MCH MCHC 31 L RDW 24.4 H Plt Count Lymph % (Auto) Lymph # (Auto) Seg Neutrophils % Seg Neuts % (Manual) Lymphocytes % (Manual) Nucleated RBC % Seg Neutrophils # Seg Neutrophils # Man Lymphocytes # (Manual) PT INR D-Dimer ABG pH 7.306 L POC ABG pCO2 POC ABG pO2 ABG pO2 149.6 H ABG HCO3 17.0 L ABG O2 Saturation ABG Base Excess -8.5 L ABG Hemoglobin 7.8 L Oxyhemoglobin Carboxyhemoglobin Sodium Potassium Chloride Carbon Dioxide BUN Glucose POC Glucose 64 L Lactic Acid Calcium Ferritin AST ALT Alkaline Phosphatase Lactate Dehydrogenase Total Creatine Kinase CK-MB (CK-2) Rel Index Troponin T C-Reactive Protein Total Protein Albumin LDL Cholesterol Direct HDL Cholesterol Urine WBC (Auto) Vancomycin Trough Crossmatch 02/27/20 02/27/20 02/27/20 07:30 12:07 18:07 WBC RBC Hgb Hct MCH MCHC RDW Plt Count Lymph % (Auto) Lymph # (Auto) Seg Neutrophils % Seg Neuts % (Manual) Lymphocytes % (Manual) Nucleated RBC % Seg Neutrophils # Seg Neutrophils # Man Lymphocytes # (Manual) PT INR D-Dimer ABG pH POC ABG pCO2 POC ABG pO2 ABG pO2 ABG HCO3 ABG O2 Saturation ABG Base Excess ABG Hemoglobin Oxyhemoglobin Carboxyhemoglobin Sodium 146 H Potassium Chloride 115.0 H Carbon Dioxide 17 L BUN 29 H Glucose 72 L POC Glucose 116 H 63 L Lactic Acid Calcium 7.9 L Ferritin AST 118 H ALT Alkaline Phosphatase 273 H Lactate Dehydrogenase Total Creatine Kinase CK-MB (CK-2) Rel Index Troponin T C-Reactive Protein Total Protein 5.3 L D Albumin 2.0 L LDL Cholesterol Direct HDL Cholesterol Urine WBC (Auto) Vancomycin Trough Crossmatch 02/27/20 02/28/20 02/28/20 23:41 04:30 05:30 WBC 12.5 H RBC 2.99 L Hgb 8.0 L Hct 26.6 L MCH 27 L MCHC 30 L RDW 24.8 H Plt Count Lymph % (Auto) 7.5 L Lymph # (Auto) 0.9 L Seg Neutrophils % 86.9 H Seg Neuts % (Manual) Lymphocytes % (Manual) Nucleated RBC % Seg Neutrophils # 10.8 H Seg Neutrophils # Man Lymphocytes # (Manual) PT INR D-Dimer ABG pH 7.240 L POC ABG pCO2 POC ABG pO2 ABG pO2 ABG HCO3 ABG O2 Saturation ABG Base Excess ABG Hemoglobin 9.0 L Oxyhemoglobin Carboxyhemoglobin Sodium Potassium Chloride Carbon Dioxide BUN Glucose POC Glucose 131 H Lactic Acid Calcium Ferritin AST ALT Alkaline Phosphatase Lactate Dehydrogenase Total Creatine Kinase CK-MB (CK-2) Rel Index Troponin T C-Reactive Protein Total Protein Albumin LDL Cholesterol Direct HDL Cholesterol Urine WBC (Auto) Vancomycin Trough Crossmatch 02/28/20 02/28/20 02/28/20 06:00 09:00 17:25 WBC RBC Hgb Hct MCH MCHC RDW Plt Count Lymph % (Auto) Lymph # (Auto) Seg Neutrophils % Seg Neuts % (Manual) Lymphocytes % (Manual) Nucleated RBC % Seg Neutrophils # Seg Neutrophils # Man Lymphocytes # (Manual) PT INR D-Dimer ABG pH POC ABG pCO2 POC ABG pO2 ABG pO2 ABG HCO3 ABG O2 Saturation ABG Base Excess ABG Hemoglobin Oxyhemoglobin Carboxyhemoglobin Sodium Potassium Chloride Carbon Dioxide BUN Glucose POC Glucose 121 H 61 L Lactic Acid Calcium Ferritin AST ALT Alkaline Phosphatase Lactate Dehydrogenase Total Creatine Kinase CK-MB (CK-2) Rel Index Troponin T C-Reactive Protein Total Protein Albumin LDL Cholesterol Direct HDL Cholesterol Urine WBC (Auto) Vancomycin Trough 29.0 H Crossmatch 02/28/20 02/29/20 02/29/20 Unknown 04:32 05:17 WBC RBC Hgb Hct MCH MCHC RDW Plt Count Lymph % (Auto) Lymph # (Auto) Seg Neutrophils % Seg Neuts % (Manual) Lymphocytes % (Manual) Nucleated RBC % Seg Neutrophils # Seg Neutrophils # Man Lymphocytes # (Manual) PT INR D-Dimer ABG pH POC ABG pCO2 22.5 L POC ABG pO2 119.7 H ABG pO2 ABG HCO3 ABG O2 Saturation ABG Base Excess ABG Hemoglobin 10.5 L Oxyhemoglobin Carboxyhemoglobin 0.3 L Sodium Potassium Chloride 114.7 H Carbon Dioxide 14 L BUN 30 H Glucose POC Glucose Lactic Acid Calcium 7.8 L Ferritin AST 193 H ALT Alkaline Phosphatase 354 H Lactate Dehydrogenase Total Creatine Kinase CK-MB (CK-2) Rel Index Troponin T C-Reactive Protein Total Protein 5.6 L Albumin 2.0 L LDL Cholesterol Direct HDL Cholesterol Urine WBC (Auto) Vancomycin Trough Crossmatch 02/29/20 02/29/20 02/29/20 05:29 11:16 11:16 WBC 15.1 H RBC Hgb 10.1 L Hct 32.8 L D MCH 27 L MCHC 31 L RDW 25.2 H Plt Count Lymph % (Auto) Lymph # (Auto) Seg Neutrophils % Seg Neuts % (Manual) 98.0 H Lymphocytes % (Manual) 1.0 L Nucleated RBC % 5.0 H Seg Neutrophils # Seg Neutrophils # Man 14.8 H Lymphocytes # (Manual) 0.2 L PT INR D-Dimer ABG pH POC ABG pCO2 POC ABG pO2 ABG pO2 ABG HCO3 ABG O2 Saturation ABG Base Excess ABG Hemoglobin Oxyhemoglobin Carboxyhemoglobin Sodium Potassium 3.5 L Chloride 111.7 H Carbon Dioxide 14 L BUN 33 H Glucose 180 H POC Glucose 125 H Lactic Acid Calcium 7.8 L Ferritin AST ALT Alkaline Phosphatase Lactate Dehydrogenase Total Creatine Kinase CK-MB (CK-2) Rel Index Troponin T C-Reactive Protein Total Protein Albumin LDL Cholesterol Direct HDL Cholesterol Urine WBC (Auto) Vancomycin Trough Crossmatch 02/29/20 02/29/20 02/29/20 12:55 17:53 23:38 WBC RBC Hgb Hct MCH MCHC RDW Plt Count Lymph % (Auto) Lymph # (Auto) Seg Neutrophils % Seg Neuts % (Manual) Lymphocytes % (Manual) Nucleated RBC % Seg Neutrophils # Seg Neutrophils # Man Lymphocytes # (Manual) PT INR D-Dimer ABG pH POC ABG pCO2 POC ABG pO2 ABG pO2 ABG HCO3 ABG O2 Saturation ABG Base Excess ABG Hemoglobin Oxyhemoglobin Carboxyhemoglobin Sodium Potassium Chloride Carbon Dioxide BUN Glucose POC Glucose 134 H 145 H 127 H Lactic Acid Calcium Ferritin AST ALT Alkaline Phosphatase Lactate Dehydrogenase Total Creatine Kinase CK-MB (CK-2) Rel Index Troponin T C-Reactive Protein Total Protein Albumin LDL Cholesterol Direct HDL Cholesterol Urine WBC (Auto) Vancomycin Trough Crossmatch 03/01/20 03/01/20 03/01/20 03:46 05:44 07:55 WBC 14.0 H RBC Hgb 10.0 L Hct 32.3 L MCH 27 L MCHC 31 L RDW 25.4 H Plt Count 99 L Lymph % (Auto) Lymph # (Auto) Seg Neutrophils % Seg Neuts % (Manual) Lymphocytes % (Manual) Nucleated RBC % Seg Neutrophils # Seg Neutrophils # Man Lymphocytes # (Manual) PT INR D-Dimer ABG pH 7.288 L POC ABG pCO2 POC ABG pO2 ABG pO2 ABG HCO3 11.7 L ABG O2 Saturation ABG Base Excess -13.3 L ABG Hemoglobin Oxyhemoglobin Carboxyhemoglobin Sodium Potassium Chloride Carbon Dioxide BUN Glucose POC Glucose 177 H Lactic Acid Calcium Ferritin AST ALT Alkaline Phosphatase Lactate Dehydrogenase Total Creatine Kinase CK-MB (CK-2) Rel Index Troponin T C-Reactive Protein Total Protein Albumin LDL Cholesterol Direct HDL Cholesterol Urine WBC (Auto) Vancomycin Trough Crossmatch 03/01/20 03/01/20 03/01/20 07:55 12:14 18:07 WBC RBC Hgb Hct MCH MCHC RDW Plt Count Lymph % (Auto) Lymph # (Auto) Seg Neutrophils % Seg Neuts % (Manual) Lymphocytes % (Manual) Nucleated RBC % Seg Neutrophils # Seg Neutrophils # Man Lymphocytes # (Manual) PT INR D-Dimer ABG pH POC ABG pCO2 POC ABG pO2 ABG pO2 ABG HCO3 ABG O2 Saturation ABG Base Excess ABG Hemoglobin Oxyhemoglobin Carboxyhemoglobin Sodium Potassium Chloride 111.5 H Carbon Dioxide 16 L BUN 36 H Glucose 157 H POC Glucose 163 H 109 H Lactic Acid Calcium 7.9 L Ferritin AST ALT Alkaline Phosphatase Lactate Dehydrogenase Total Creatine Kinase CK-MB (CK-2) Rel Index Troponin T C-Reactive Protein Total Protein Albumin LDL Cholesterol Direct HDL Cholesterol Urine WBC (Auto) Vancomycin Trough Crossmatch 03/01/20 03/02/20 03/02/20 23:55 05:42 12:02 WBC RBC Hgb Hct MCH MCHC RDW Plt Count Lymph % (Auto) Lymph # (Auto) Seg Neutrophils % Seg Neuts % (Manual) Lymphocytes % (Manual) Nucleated RBC % Seg Neutrophils # Seg Neutrophils # Man Lymphocytes # (Manual) PT INR D-Dimer ABG pH POC ABG pCO2 POC ABG pO2 ABG pO2 ABG HCO3 ABG O2 Saturation ABG Base Excess ABG Hemoglobin Oxyhemoglobin Carboxyhemoglobin Sodium Potassium Chloride Carbon Dioxide BUN Glucose POC Glucose 132 H 146 H 147 H Lactic Acid Calcium Ferritin AST ALT Alkaline Phosphatase Lactate Dehydrogenase Total Creatine Kinase CK-MB (CK-2) Rel Index Troponin T C-Reactive Protein Total Protein Albumin LDL Cholesterol Direct HDL Cholesterol Urine WBC (Auto) Vancomycin Trough Crossmatch 03/02/20 03/03/20 03/03/20 17:59 00:28 04:52 WBC 13.3 H RBC Hgb 9.9 L Hct 32.2 L MCH 27 L MCHC 31 L RDW 25.8 H Plt Count 67 L Lymph % (Auto) Lymph # (Auto) Seg Neutrophils % Seg Neuts % (Manual) Lymphocytes % (Manual) Nucleated RBC % Seg Neutrophils # Seg Neutrophils # Man Lymphocytes # (Manual) PT INR D-Dimer ABG pH POC ABG pCO2 POC ABG pO2 ABG pO2 ABG HCO3 ABG O2 Saturation ABG Base Excess ABG Hemoglobin Oxyhemoglobin Carboxyhemoglobin Sodium Potassium Chloride Carbon Dioxide BUN Glucose POC Glucose 113 H 114 H Lactic Acid Calcium Ferritin AST ALT Alkaline Phosphatase Lactate Dehydrogenase Total Creatine Kinase CK-MB (CK-2) Rel Index Troponin T C-Reactive Protein Total Protein Albumin LDL Cholesterol Direct HDL Cholesterol Urine WBC (Auto) Vancomycin Trough Crossmatch 03/03/20 03/03/20 03/04/20 04:52 18:08 00:27 WBC RBC Hgb Hct MCH MCHC RDW Plt Count Lymph % (Auto) Lymph # (Auto) Seg Neutrophils % Seg Neuts % (Manual) Lymphocytes % (Manual) Nucleated RBC % Seg Neutrophils # Seg Neutrophils # Man Lymphocytes # (Manual) PT INR D-Dimer ABG pH POC ABG pCO2 POC ABG pO2 ABG pO2 ABG HCO3 ABG O2 Saturation ABG Base Excess ABG Hemoglobin Oxyhemoglobin Carboxyhemoglobin Sodium Potassium Chloride 112.7 H Carbon Dioxide 19 L BUN 35 H Glucose POC Glucose 119 H 120 H Lactic Acid Calcium Ferritin AST ALT Alkaline Phosphatase Lactate Dehydrogenase Total Creatine Kinase CK-MB (CK-2) Rel Index Troponin T C-Reactive Protein Total Protein Albumin LDL Cholesterol Direct HDL Cholesterol Urine WBC (Auto) Vancomycin Trough Crossmatch 03/04/20 03/04/20 03/04/20 05:52 12:17 16:45 WBC 17.9 H RBC 3.57 L Hgb 9.6 L Hct 32.8 L MCH 27 L MCHC 29 L RDW 26.4 H Plt Count 136 L D Lymph % (Auto) Lymph # (Auto) Seg Neutrophils % Seg Neuts % (Manual) 91.0 H Lymphocytes % (Manual) 6.0 L Nucleated RBC % 2.0 H Seg Neutrophils # Seg Neutrophils # Man 16.3 H Lymphocytes # (Manual) 1.1 L PT INR D-Dimer ABG pH POC ABG pCO2 POC ABG pO2 ABG pO2 ABG HCO3 ABG O2 Saturation ABG Base Excess ABG Hemoglobin Oxyhemoglobin Carboxyhemoglobin Sodium Potassium Chloride Carbon Dioxide BUN Glucose POC Glucose 166 H 187 H Lactic Acid Calcium Ferritin AST ALT Alkaline Phosphatase Lactate Dehydrogenase Total Creatine Kinase CK-MB (CK-2) Rel Index Troponin T C-Reactive Protein Total Protein Albumin LDL Cholesterol Direct HDL Cholesterol Urine WBC (Auto) Vancomycin Trough Crossmatch 03/04/20 03/04/20 03/04/20 16:45 18:29 22:44 WBC RBC Hgb Hct MCH MCHC RDW Plt Count Lymph % (Auto) Lymph # (Auto) Seg Neutrophils % Seg Neuts % (Manual) Lymphocytes % (Manual) Nucleated RBC % Seg Neutrophils # Seg Neutrophils # Man Lymphocytes # (Manual) PT INR D-Dimer ABG pH POC ABG pCO2 POC ABG pO2 ABG pO2 ABG HCO3 ABG O2 Saturation ABG Base Excess ABG Hemoglobin Oxyhemoglobin Carboxyhemoglobin Sodium 146 H Potassium Chloride 115.6 H Carbon Dioxide 21 L BUN 39 H Glucose 137 H POC Glucose 147 H 188 H Lactic Acid Calcium Ferritin AST ALT Alkaline Phosphatase 219 H Lactate Dehydrogenase Total Creatine Kinase CK-MB (CK-2) Rel Index Troponin T C-Reactive Protein Total Protein 5.7 L Albumin 1.9 L LDL Cholesterol Direct HDL Cholesterol Urine WBC (Auto) Vancomycin Trough Crossmatch 03/05/20 03/05/20 03/05/20 01:05 04:20 04:56 WBC 20.9 H RBC 3.41 L Hgb 9.3 L Hct 30.5 L MCH 27 L MCHC 30 L RDW 26.0 H Plt Count 130 L Lymph % (Auto) Lymph # (Auto) Seg Neutrophils % Seg Neuts % (Manual) Lymphocytes % (Manual) Nucleated RBC % Seg Neutrophils # Seg Neutrophils # Man Lymphocytes # (Manual) PT INR D-Dimer ABG pH 7.225 L 7.280 L POC ABG pCO2 POC ABG pO2 ABG pO2 178.8 H ABG HCO3 19.8 L ABG O2 Saturation ABG Base Excess -7.3 L -6.3 L ABG Hemoglobin 10.0 L 5.0 L Oxyhemoglobin Carboxyhemoglobin Sodium Potassium Chloride Carbon Dioxide BUN Glucose POC Glucose Lactic Acid Calcium Ferritin AST ALT Alkaline Phosphatase Lactate Dehydrogenase Total Creatine Kinase CK-MB (CK-2) Rel Index Troponin T C-Reactive Protein Total Protein Albumin LDL Cholesterol Direct HDL Cholesterol Urine WBC (Auto) Vancomycin Trough Crossmatch 03/05/20 03/05/20 03/05/20 04:56 05:29 11:27 WBC RBC Hgb Hct MCH MCHC RDW Plt Count Lymph % (Auto) Lymph # (Auto) Seg Neutrophils % Seg Neuts % (Manual) Lymphocytes % (Manual) Nucleated RBC % Seg Neutrophils # Seg Neutrophils # Man Lymphocytes # (Manual) PT INR D-Dimer ABG pH POC ABG pCO2 POC ABG pO2 ABG pO2 ABG HCO3 ABG O2 Saturation ABG Base Excess ABG Hemoglobin Oxyhemoglobin Carboxyhemoglobin Sodium 149 H Potassium Chloride 116.7 H Carbon Dioxide 19 L BUN 43 H Glucose 156 H POC Glucose 169 H 159 H Lactic Acid Calcium Ferritin AST ALT Alkaline Phosphatase Lactate Dehydrogenase Total Creatine Kinase CK-MB (CK-2) Rel Index Troponin T C-Reactive Protein Total Protein Albumin LDL Cholesterol Direct HDL Cholesterol Urine WBC (Auto) Vancomycin Trough Crossmatch Chest x-ray: image reviewed (Extensive bilateral infiltrates left more than the right. Endotracheal tube in good position. Chest x-ray relatively stable over last several days.)
--- NOTE | 2020-03-05 13:54 | Progress Note ---
Assessment and Plan S/P PEA arrest Acute respiratory failure Bilateral pneumonia Dilated cardiomyopathy, uncertain chronicity LVEF 15 to 20% by echo this presentation Reports of Transient VF following multiple rounds of epi during code BLUE no strips available for review currently in sinus rhythm on amiodarone for suppression. Reported recent history of tuberculosis Paraplegia Continue amiodarone for suppression of arrhythmias. Guideline directed optimal medical therapy for dilated cardiomyopathy. Subjective Date of service: 03/05/20 Principal diagnosis: Acute respiratory failure Interval history: Pt had PEA arrest and now on Vent Objective Vital Signs Temp Pulse Pulse Pulse Resp Resp BP 03/05/20 12:28 100 H 35 H 03/05/20 12:26 100 H 104/75 03/05/20 11:42 99.8 F H 03/05/20 11:00 59 L 108/74 03/05/20 09:18 104 H 132/97 03/05/20 08:24 94 H 128/93 03/05/20 08:00 98.4 F 03/05/20 06:30 103 H 27 H 125/84 03/05/20 06:15 104 H 26 H 120/89 03/05/20 06:00 102 H 31 H 116/83 03/05/20 05:45 97 H 25 H 113/81 03/05/20 05:30 101 H 25 H 108/81 03/05/20 05:15 105 H 31 H 109/79 03/05/20 05:00 103 H 29 H 104/78 03/05/20 04:45 106 H 34 H 108/78 03/05/20 04:30 105 H 26 H 104/77 03/05/20 04:15 103 H 37 H 102/76 03/05/20 04:00 98.3 F 104 H 24 102/72 03/05/20 03:50 106 H 03/05/20 03:45 105 H 32 H 101/69 03/05/20 03:30 106 H 25 H 97/70 03/05/20 03:15 107 H 21 102/76 03/05/20 03:00 108 H 20 105/73 03/05/20 02:45 110 H 20 100/76 03/05/20 02:30 107 H 19 117/84 03/05/20 02:15 107 H 21 119/84 03/05/20 02:00 107 H 22 116/85 03/05/20 01:45 100 H 21 121/90 03/05/20 01:30 103 H 20 116/87 03/05/20 01:15 104 H 21 114/90 03/05/20 01:00 101 H 20 116/92 03/05/20 00:45 99 H 20 118/89 03/05/20 00:30 98 H 20 114/88 03/05/20 00:15 97 H 20 113/82 03/05/20 00:00 97 H 20 115/86 03/04/20 23:57 97.3 F L 03/04/20 23:45 97 H 20 109/84 03/04/20 23:30 99 H 20 109/83 03/04/20 23:15 102 H 20 109/87 03/04/20 23:00 106 H 20 102/81 03/04/20 22:46 116 H 23 86/61 03/04/20 22:40 120 H 162/115 03/04/20 22:30 139 H 24 162/115 03/04/20 22:15 113 H 18 86/61 03/04/20 22:00 122 H 25 H 91/64 03/04/20 21:45 71 0 L 72/51 03/04/20 21:30 77 34 H 79/53 03/04/20 21:28 86 76/55 03/04/20 21:15 80 0 L 76/55 03/04/20 21:00 83 6 L 77/56 03/04/20 20:45 65 31 H 79/54 03/04/20 20:30 79 19 80/59 03/04/20 20:24 03/04/20 20:15 79 28 H 88/62 03/04/20 20:00 96.8 F L 70 24 86/54 03/04/20 19:45 80 0 L 83/59 03/04/20 19:30 75 18 87/54 03/04/20 19:15 74 14 86/59 03/04/20 19:00 80 40 H 83/62 03/04/20 18:46 64 40 H 86/61 03/04/20 18:30 82 39 H 85/62 03/04/20 18:16 80 39 H 88/61 03/04/20 18:00 76 40 H 88/64 03/04/20 17:45 81 35 H 94/65 03/04/20 17:30 75 35 H 89/64 03/04/20 17:15 77 16 89/65 03/04/20 17:00 78 38 H 90/64 03/04/20 16:45 70 39 H 80/58 03/04/20 16:30 72 27 H 89/64 03/04/20 16:16 86 40 H 81/57 03/04/20 16:00 82 68 39 H 82/58 03/04/20 15:45 81 32 H 81/57 03/04/20 15:30 77 37 H 83/62 03/04/20 15:15 59 L 17 78/54 03/04/20 15:00 78 41 H 82/60 03/04/20 14:45 75 39 H 81/59 03/04/20 14:30 79 43 H 88/55 03/04/20 14:15 79 36 H 84/59 03/04/20 14:00 83 40 H 80/60 Pulse Ox 03/05/20 12:28 03/05/20 12:26 97 03/05/20 11:42 03/05/20 11:00 03/05/20 09:18 03/05/20 08:24 98 03/05/20 08:00 03/05/20 06:30 98 03/05/20 06:15 99 03/05/20 06:00 98 03/05/20 05:45 98 03/05/20 05:30 98 03/05/20 05:15 98 03/05/20 05:00 99 03/05/20 04:45 98 03/05/20 04:30 98 03/05/20 04:15 98 03/05/20 04:00 98 03/05/20 03:50 03/05/20 03:45 98 03/05/20 03:30 98 03/05/20 03:15 96 03/05/20 03:00 97 03/05/20 02:45 97 03/05/20 02:30 97 03/05/20 02:15 97 03/05/20 02:00 97 03/05/20 01:45 97 03/05/20 01:30 100 03/05/20 01:15 100 03/05/20 01:00 100 03/05/20 00:45 100 03/05/20 00:30 100 03/05/20 00:15 100 03/05/20 00:00 100 03/04/20 23:57 03/04/20 23:45 100 03/04/20 23:30 100 03/04/20 23:15 100 03/04/20 23:00 100 03/04/20 22:46 100 03/04/20 22:40 100 03/04/20 22:30 100 03/04/20 22:15 100 03/04/20 22:00 85 03/04/20 21:45 74 L 03/04/20 21:30 91 03/04/20 21:28 03/04/20 21:15 89 03/04/20 21:00 92 03/04/20 20:45 93 03/04/20 20:30 94 03/04/20 20:24 94 03/04/20 20:15 94 03/04/20 20:00 95 03/04/20 19:45 93 03/04/20 19:30 94 03/04/20 19:15 93 03/04/20 19:00 92 03/04/20 18:46 93 03/04/20 18:30 91 03/04/20 18:16 92 03/04/20 18:00 93 03/04/20 17:45 92 03/04/20 17:30 92 03/04/20 17:15 90 03/04/20 17:00 91 03/04/20 16:45 90 03/04/20 16:30 89 03/04/20 16:16 03/04/20 16:00 93 03/04/20 15:45 90 03/04/20 15:30 90 03/04/20 15:15 92 03/04/20 15:00 92 03/04/20 14:45 92 03/04/20 14:30 93 03/04/20 14:15 92 03/04/20 14:00 91 - Physical Examination General: Other (ALERT,,GARBLED SPEECH) HEENT: Positive: PERRL Neck: Positive: neck supple Cardiac: Positive: Reg Rate and Rhythm Lungs: Positive: Rhonchi Neuro: Positive: Other (DEFFERED) Abdomen: Positive: Soft Extremities: Present: edema (MILD) - Labs and Meds Cardiac Enzymes 03/04/20 Range/Units 16:45 AST 26 (5-40) units/L CBC 03/04/20 03/05/20 Range/Units 16:45 04:56 WBC 17.9 H 20.9 H (4.5-11.0) K/mm3 RBC 3.57 L 3.41 L (3.65-5.03) M/mm3 Hgb 9.6 L 9.3 L (11.8-15.2) gm/dl Hct 32.8 L 30.5 L (35.5-45.6) % Plt Count 136 L D 130 L (140-440) K/mm3 Comprehensive Metabolic Panel 03/04/20 03/05/20 Range/Units 16:45 04:56 Sodium 146 H 149 H (137-145) mmol/L Potassium 4.2 3.9 (3.6-5.0) mmol/L Chloride 115.6 H 116.7 H (98-107) mmol/L Carbon Dioxide 21 L 19 L (22-30) mmol/L BUN 39 H 43 H (9-20) mg/dL Creatinine 1.1 1.3 (0.8-1.3) mg/dL Glucose 137 H 156 H (75-100) mg/dL Calcium 8.4 8.4 (8.4-10.2) mg/dL AST 26 (5-40) units/L ALT 19 (7-56) units/L Alkaline Phosphatase 219 H (35-129) units/L Total Protein 5.7 L (6.3-8.2) g/dL Albumin 1.9 L (3.9-5) g/dL - Imaging and Cardiology EKG: report reviewed, image reviewed
[2020-03-05] MEDS ORDERED: VANCOMYCIN PHARMACY TO DOSE IV SCH ×2 (14:00→15:00)
[2020-03-05] MEDS: MEROPENEM/NS 1 GRAM/100 ML 1 GRAM/100 ML BAG IV SCH (14:06)
[2020-03-05] MEDS: VANCOMYCIN 750 MG in SODIUM CHLORIDE 0.9% 250ML 250 ML IV SCH (15:14)
[2020-03-05 16:23] LABS: Heparin-Induced Platelet Antib Negative (Negative); Unfractionated Heparin Negative (Negative)
[2020-03-06] MEDS: MEROPENEM/NS 1 GRAM/100 ML 1 GRAM/100 ML BAG IV SCH ×2 (02:40→13:56)
--- NOTE | 2020-03-06 04:02 | XRay Report ---
CHEST 1 VIEW INDICATION: follow up respiratory failure COMPARISON: 03/04/2020 FINDINGS: Support devices: Unchanged. Heart: Normal and unchanged Lungs/Pleura: Bilateral pleural-parenchymal disease persists unchanged. No new disease. IMPRESSION: 1. No significant change. Signer Name: Randal Powell MD Signed: 03/06/2020 3:58 AM Workstation Name: [id number]
[2020-03-06] MEDS: METHADONE 10 MG TAB PO SCH ×3 (05:00→21:17)
[2020-03-06] MEDS: SODIUM CHLORIDE 0.9% 1000 ML 1,000 ML IV SCH ×2 (05:02→23:17)
[2020-03-06] MEDS: HALOPERIDOL LACTATE 5 MG/1 ML INJ IV SCH ×3 (05:02→12:56)
--- NOTE | 2020-03-06 09:58 | Progress Note ---
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 Proventil IH 2.5 mg Q4HRT PRN Administration Shortness Of Breath Amiodarone HCl 200 mg 03/01/20 12:00 03/05/20 09:19 Cordarone PO 200 mg QDAY AIDEE Administration Lipase/Protease/Amylase 1 each 02/27/20 10:[address] 10,500 Unit FEEDTUBE PRN PRN For Clogged Feeding Tube Carvedilol 6.25 mg 03/02/20 22:00 03/05/20 21:08 Coreg PO Not Given BID AIDEE Dextrose 50 ml 02/27/20 07:16 02/27/20 18:18 D50w (25gm) Syringe IV 50 ml PRN PRN Administration Hypoglycemia Protocol Ethambutol HCl 800 mg 02/27/20 12:00 03/05/20 09:19 Myambutol PO 800 mg QDAY AIDEE Administration Famotidine 20 mg 02/28/20 10:00 03/05/20 21:13 Pepcid PO 20 mg BID AIDEE Administration Furosemide 40 mg 03/03/20 10:00 03/05/20 09:18 Lasix PO 40 mg QDAY AIDEE Administration Glycopyrrolate 1 mg 03/05/20 10:00 03/05/20 21:13 Robinul PO 1 mg BID AIDEE Administration Haloperidol Lactate 5 mg 03/02/20 15:00 03/06/20 05:02 Haldol IV 5 mg Q6HR AIDEE Administration Hydromorphone HCl 2 mg 03/02/20 09:11 03/05/20 17:38 Dilaudid IV 2 mg Q3H PRN Administration Pain , Severe (7-10) Hydrophilic Ointment 1 applic 03/05/20 01:44 Vaseline Lip Therapy TP Q2HR PRN Dry Lips Dexmedetomidine HCl 200 mcg/ 50 mls @ 2.268 mls/hr 03/01/20 12:00 03/03/20 11:10 Sodium Chloride IV 0 mcg/kg/hr TITRATE AIDEE 0 mls/hr Titration Protocol 0.2 MCG/KG/HR Norepinephrine 4 mg in 250 mls @ 7.5 mls/hr 03/04/20 03:00 03/05/20 13:00 Levophed Drip 4 Mg/Ns 250 Ml IV 0 mcg/min TITR AIDEE 0 mls/hr Titration Protocol 2 MCG/MIN Sodium Chloride 1,000 mls @ 75 mls/hr 03/04/20 20:30 03/06/20 05:02 Nacl 0.9% 1000 Ml IV 75 mls/hr DIRECT AIDEE Administration Fentanyl Citrate 2,000 mcg in 100 mls @ 2.268 mls/hr 03/05/20 02:00 Fentanyl Drip Premix IV TITR AIDEE Protocol 1 MCG/KG/HR Midazolam HCl 100 mg/ Sodium 100 mls @ 2 mls/hr 03/05/20 02:00 03/05/20 21:02 Chloride IV 1 mg/hr TITR AIDEE 1 mls/hr Titration Protocol 2 MG/HR MEROPENEM/NS 1 GRAM/100 ML 1 gram in 100 mls @ 100 mls/hr 03/05/20 14:30 03/06/20 02:40 Merrem/Ns 1 Gram/100 Ml IV 100 mls/hr Q12H AIDEE Administration Protocol Vancomycin HCl 750 mg/ Sodium 265 mls @ 132.5 mls/hr 03/05/20 15:30 03/05/20 15:14 Chloride IV 132.5 mls/hr Q24H AIDEE Administration Protocol Isoniazid 300 mg 02/27/20 12:00 03/05/20 09:19 Isoniazid PO 300 mg QDAY AIDEE Administration Lisinopril 2.5 mg 03/03/20 10:00 03/05/20 11:00 Zestril PO Not Given QDAY [facility] Magnesium Hydroxide 30 ml 02/25/20 04:16 Milk Of Magnesia PO Q4H PRN Constipation Methadone HCl 10 mg 03/02/20 14:00 03/06/20 05:00 Dolophine PO 10 mg Q8HR AIDEE Administration Multi-Ingred Cream/Lotion/Oil/Oint 1 applic 03/05/20 01:44 Artificial Tears Ophth Oint OU Q4HR PRN Dry Eye(s) Ondansetron HCl 4 mg 02/25/20 04:16 Zofran IV Q8H PRN Nausea And Vomiting Pyrazinamide 1,000 mg 02/29/20 10:00 03/05/20 09:18 Pyrazinamide PO 1,000 mg QDAY AIDEE Administration Pyridoxine HCl 50 mg 02/27/20 12:00 03/05/20 09:19 Vitamin B-6 PO 50 mg QDAY AIDEE Administration Rifampin 600 mg 02/27/20 12:00 03/05/20 09:19 Rifadin PO 600 mg QDAY AIDEE Administration Senna/Docusate Sodium 2 tab 03/02/20 10:00 03/05/20 21:13 Senokot S PO 2 tab BID AIDEE Administration Simple Syrup 15 ml 02/27/20 10:25 Simple Syrup FEEDTUBE PRN PRN Hypoglycemia Simple Syrup 30 ml 02/27/20 10:25 Simple Syrup FEEDTUBE PRN PRN Hypoglycemia Sodium Bicarbonate 325 mg 02/27/20 10:25 Sodium Bicarbonate FEEDTUBE PRN PRN For Clogged Feeding Tube Sodium Chloride 10 ml 02/25/20 10:00 03/05/20 21:12 Sodium Chloride Flush Syringe 10 Ml IV 10 ml BID AIDEE Administration Sodium Chloride 10 ml 02/25/20 04:16 Sodium Chloride Flush Syringe 10 Ml IV PRN PRN LINE FLUSH Spironolactone 25 mg 03/03/20 10:00 03/05/20 09:18 Aldactone PO 25 mg QDAY AIDEE Administration Nutrition/Malnutrition Assess - Dietary Evaluation Nutrition/Malnutrition Findings: Nutrition Notes Start: 02/25/20 10:14 Freq: Status: Active Protocol: Document 03/03/20 11:15 DAYANARA (Rec: 03/03/20 11:42 DAYANARA [id number]) Co-Sign 03/03/20 11:15 SHUBHAM Nutrition Notes Initial or Follow up Reassessment Current Diagnosis Decubitus(Pressure Ulcer), Sepsis,Respiratory Failure Other Pertinent Diagnosis Pneu, UTI, anemia, paraplegia, buttocks PU,Pulmonary TB Current Diet Osmolite 1.5 at 50ml/hr Labs/Tests Reviewed Pertinent Medications Vitamin B6 Height 5 ft 9 in Weight 45.359 kg [place] Body Weight (kg) 72.72 BMI 14.8 Weight Status Underweight Subjective/Other Information F/U stable TF. Pt TF not running at time of visit. Per RN, pt pulled out NG tube, tube being replaced. NEW PRODUCT TRAINER recommends NPO until pt stable . Percent of energy/protein needs met: 0%/0% Burn Absent Trauma Absent Current % PO Negligible Minimum of two criteria Yes Muscle Mass Mild Depletion (non-severe) Fluid Accumulation Moderate to Severe (severe) Reduced [employer] Strength Measurably Reduced (severe) #3 Nutrition Diagnosis Increased nutrient needs ( specify in comment below) Diagnosis Progress(for reassessment Continues documentation) #2 Nutrition Diagnosis Inadequate oral intake Etiology Pt removed NG tube As Evidenced by Signs and Symptoms Per NEW PRODUCT TRAINER, pt NPO Diagnosis Progress(for reassessment Continues documentation) #1 Nutrition Diagnosis Malnutrition Diagnosis Progress(for reassessment Continues documentation) Is patient on ventilator? No Is Patient Ambulatory and/or Out of Bed No REE-([place]-confined to bed) 1592.628 Kcal/Kg value to use for calculation 42 Approximate Energy Requirements Using 1905 kcal/Kg Calculation Used for Recommendations Kcal/kg Additional Notes Protein: 54-68g (1.2-1.5g/kg) Fluid: 1ml/kcal Nutrition Intervention Change Diet Order: Continue TF Nutrition Support: Osmolite 1.5 at 50ml/hr Flush 150ml q4h Kcal 1,800 Protein (gm) 75 Fluid (mL) 914 Goal #1 TF tolerance Goal #2 Meet at least 100% of energy and protein needs via TF. Goal #3 Wound healing Goal #4 Wt maintenance or wt gain Anticipated Discharge Needs: Unable to determine at this time Follow-Up By: 03/07/20 Additional Comments F/U NG tube replacement, stable TF, plan of care
--- NOTE | 2020-03-06 10:13 | Progress Note ---
<DIANA HILL - Last Filed: 03/06/20 10:14> Assessment and Plan S/P PEA arrest Acute respiratory failure Bilateral pneumonia Dilated cardiomyopathy, uncertain chronicity LVEF 15 to 20% by echo this presentation Reports of Transient VF following multiple rounds of epi during code BLUE no strips available for review currently in sinus rhythm on amiodarone for suppression. Recent history of tuberculosis Paraplegia Continue amiodarone for suppression of arrhythmias. Guideline directed optimal medical therapy for dilated cardiomyopathy. Otherwise, conservative cardiac management. Subjective Date of service: 03/06/20 Principal diagnosis: Acute respiratory failure Interval history: No cardiac event overnight. Patient was re-intubated and is on mechanical ventilation. Objective Vital Signs Temp Pulse Pulse Pulse Resp Resp BP 03/06/20 09:15 88 30 H 125/81 03/06/20 09:00 89 29 H 113/74 03/06/20 08:45 87 29 H 117/77 03/06/20 08:30 82 25 H 122/79 03/06/20 08:15 100 H 16 119/79 03/06/20 08:00 88 90 27 H 116/73 03/06/20 07:45 86 27 H 110/69 03/06/20 07:30 84 22 102/65 03/06/20 07:15 86 28 H 109/68 03/06/20 07:00 102 H 21 127/76 03/06/20 06:45 85 26 H 103/66 03/06/20 06:30 93 H 31 H 116/75 03/06/20 06:15 88 26 H 110/72 03/06/20 06:00 89 27 H 107/69 03/06/20 05:45 88 29 H 114/73 03/06/20 05:30 87 28 H 114/74 03/06/20 05:15 91 H 29 H 115/79 03/06/20 05:00 86 27 H 132/87 03/06/20 04:45 86 29 H 127/86 03/06/20 04:30 101 H 25 H 132/80 03/06/20 04:15 73 28 H 140/82 03/06/20 04:10 80 114/78 03/06/20 04:00 98.7 F 76 30 H 114/78 03/06/20 03:45 89 31 H 122/83 03/06/20 03:30 95 H 29 H 132/86 03/06/20 03:15 91 H 29 H 127/86 03/06/20 03:00 90 33 H 127/89 03/06/20 02:45 87 26 H 136/90 03/06/20 02:30 109 H 18 133/88 03/06/20 02:15 90 35 H 127/89 03/06/20 02:00 89 18 128/89 03/06/20 01:45 92 H 24 129/85 03/06/20 01:30 88 29 H 120/78 03/06/20 01:15 86 29 H 118/80 03/06/20 01:00 86 30 H 121/79 03/06/20 00:45 86 18 112/79 03/06/20 00:30 83 28 H 125/81 03/06/20 00:15 84 29 H 118/77 03/06/20 00:00 98.1 F 85 28 H 113/76 03/05/20 23:51 81 118/76 03/05/20 23:45 87 25 H 118/76 03/05/20 23:30 83 28 H 117/77 03/05/20 23:15 86 22 113/77 03/05/20 23:00 86 28 H 126/84 03/05/20 22:45 89 28 H 119/81 03/05/20 22:30 80 29 H 118/81 03/05/20 22:15 82 26 H 123/85 03/05/20 22:00 85 30 H 121/83 03/05/20 21:45 78 31 H 124/82 03/05/20 21:30 86 25 H 121/85 03/05/20 21:29 51 L 19 124/85 03/05/20 21:15 86 9 L 124/85 03/05/20 21:12 105 H 22 119/81 03/05/20 21:08 88 126/86 03/05/20 21:00 76 31 H 126/86 03/05/20 20:52 105 H 119/84 03/05/20 20:45 78 28 H 119/84 03/05/20 20:30 109 H 19 120/85 03/05/20 20:15 90 16 118/82 03/05/20 20:00 98.8 F 91 H 24 120/85 03/05/20 19:45 89 31 H 119/81 03/05/20 19:30 91 H 23 120/81 03/05/20 19:16 87 03/05/20 19:15 91 H 18 118/81 03/05/20 19:00 91 H 20 118/78 03/05/20 18:45 90 19 117/78 03/05/20 18:30 88 19 111/75 03/05/20 18:15 85 8 L 110/76 03/05/20 18:00 90 27 H 107/73 03/05/20 17:46 90 99/69 03/05/20 17:45 89 27 H 99/69 03/05/20 17:30 98 H 15 103/70 03/05/20 17:16 93 H 30 H 103/70 03/05/20 17:00 93 H 13 103/70 03/05/20 16:45 98 H 25 H 103/70 03/05/20 16:30 101 H 36 H 110/76 03/05/20 16:15 100 H 40 H 113/77 03/05/20 16:00 98.8 F 101 H 113 H 25 H 105/76 03/05/20 15:45 103 H 37 H 109/75 03/05/20 15:30 101 H 36 H 106/74 03/05/20 15:15 105 H 39 H 104/79 03/05/20 15:00 103 H 39 H 111/74 03/05/20 14:45 99 H 31 H 102/74 03/05/20 14:30 105 H 38 H 101/72 03/05/20 14:15 101 H 35 H 101/71 03/05/20 14:00 108 H 37 H 99/70 03/05/20 13:45 104 H 36 H 102/71 03/05/20 13:30 103 H 39 H 105/80 03/05/20 13:15 101 H 40 H 103/78 03/05/20 13:00 99 H 41 H 105/76 03/05/20 12:45 102 H 41 H 97/71 03/05/20 12:30 102 H 40 H 109/78 03/05/20 12:28 100 H 35 H 03/05/20 12:26 100 H 104/75 03/05/20 12:15 107 H 43 H 104/75 03/05/20 12:00 108 H 100 H 40 H 102/78 03/05/20 11:45 107 H 43 H 109/80 03/05/20 11:42 99.8 F H 03/05/20 11:30 104 H 40 H 113/79 03/05/20 11:15 99 H 39 H 119/88 03/05/20 11:00 103 H 38 H 117/86 03/05/20 10:45 102 H 43 H 120/90 03/05/20 10:30 96 H 43 H 112/73 03/05/20 10:15 104 H 42 H 115/83 Pulse Ox 03/06/20 09:15 99 03/06/20 09:00 99 03/06/20 08:45 99 03/06/20 08:30 99 03/06/20 08:15 99 03/06/20 08:00 99 03/06/20 07:45 99 03/06/20 07:30 99 03/06/20 07:15 99 03/06/20 07:00 99 03/06/20 06:45 99 03/06/20 06:30 99 03/06/20 06:15 99 03/06/20 06:00 99 03/06/20 05:45 99 03/06/20 05:30 99 03/06/20 05:15 99 03/06/20 05:00 99 03/06/20 04:45 99 03/06/20 04:30 99 03/06/20 04:15 98 03/06/20 04:10 99 03/06/20 04:00 99 03/06/20 03:45 99 03/06/20 03:30 100 03/06/20 03:15 100 03/06/20 03:00 98 03/06/20 02:45 99 03/06/20 02:30 98 03/06/20 02:15 98 03/06/20 02:00 98 03/06/20 01:45 98 03/06/20 01:30 98 03/06/20 01:15 98 03/06/20 01:00 98 03/06/20 00:45 97 03/06/20 00:30 98 03/06/20 00:15 98 03/06/20 00:00 98 03/05/20 23:51 99 03/05/20 23:45 100 03/05/20 23:30 100 03/05/20 23:15 100 03/05/20 23:00 100 03/05/20 22:45 100 03/05/20 22:30 100 03/05/20 22:15 100 03/05/20 22:00 100 03/05/20 21:45 100 03/05/20 21:30 99 03/05/20 21:29 99 03/05/20 21:15 100 03/05/20 21:12 100 03/05/20 21:08 03/05/20 21:00 100 03/05/20 20:52 100 03/05/20 20:45 100 03/05/20 20:30 100 03/05/20 20:15 100 03/05/20 20:00 100 03/05/20 19:45 100 03/05/20 19:30 100 03/05/20 19:16 03/05/20 19:15 100 03/05/20 19:00 100 03/05/20 18:45 100 03/05/20 18:30 100 03/05/20 18:15 100 03/05/20 18:00 100 03/05/20 17:46 99 03/05/20 17:45 03/05/20 17:30 03/05/20 17:16 03/05/20 17:00 03/05/20 16:45 03/05/20 16:30 98 03/05/20 16:15 98 03/05/20 16:00 98 03/05/20 15:45 98 03/05/20 15:30 98 03/05/20 15:15 97 03/05/20 15:00 98 03/05/20 14:45 98 03/05/20 14:30 97 03/05/20 14:15 97 03/05/20 14:00 97 03/05/20 13:45 97 03/05/20 13:30 96 03/05/20 13:15 97 03/05/20 13:00 97 03/05/20 12:45 94 03/05/20 12:30 97 03/05/20 12:28 03/05/20 12:26 97 03/05/20 12:15 96 03/05/20 12:00 97 03/05/20 11:45 97 03/05/20 11:42 03/05/20 11:30 99 03/05/20 11:15 97 03/05/20 11:00 98 03/05/20 10:45 98 03/05/20 10:30 97 03/05/20 10:15 97 - Physical Examination General: Other (intubated on the vent) Cardiac: Positive: Reg Rate and Rhythm <EDSON WATERS Last Filed: 03/06/20 20:47> Assessment and Plan - Patient Problems (1) Anemia Current Visit: Yes Status: Acute Qualifiers: Anemia type: unspecified type Qualified Code(s): D64.9 - Anemia, unspecified (2) Atrial fibrillation Current Visit: Yes Status: Acute (3) Cardiorespiratory arrest Current Visit: Yes Status: Acute (4) Dilated cardiomyopathy Current Visit: Yes Status: Acute (5) Paraplegia Current Visit: Yes Status: Acute (6) Pneumonia Current Visit: Yes Status: Acute Qualifiers: Pneumonia type: due to unspecified organism Laterality: bilateral Lung location: unspecified part of lung Qualified Code(s): J18.9 - Pneumonia, unspecified organism Subjective Interval history: I SAW THIS PT & AGREE WITH THE Dx & Tx PLAN Objective Vital Signs Temp Pulse Pulse Resp BP Pulse Ox 03/06/20 20:34 93 H 130/96 98 03/06/20 20:15 93 H 28 H 123/84 99 03/06/20 20:00 98.0 F 94 H 25 H 132/89 99 03/06/20 19:45 94 H 29 H 122/84 98 03/06/20 19:30 95 H 31 H 129/91 99 03/06/20 19:15 95 H 31 H 132/92 99 03/06/20 19:00 96 H 31 H 129/89 98 03/06/20 18:45 92 H 31 H 128/90 98 03/06/20 18:30 96 H 31 H 136/93 99 03/06/20 18:15 95 H 31 H 128/91 98 03/06/20 18:00 95 H 31 H 136/92 99 03/06/20 17:45 98 H 33 H 137/94 98 03/06/20 17:30 97 H 21 131/94 99 03/06/20 17:15 93 H 31 H 133/93 99 03/06/20 17:00 97 H 31 H 130/94 98 03/06/20 16:45 91 H 18 135/92 98 03/06/20 16:30 100 H 22 132/92 98 03/06/20 16:15 93 H 24 127/90 98 03/06/20 16:13 98.5 F 03/06/20 16:00 98.6 F 94 H 95 H 18 122/88 98 03/06/20 15:45 89 12 113/80 97 03/06/20 15:30 90 17 109/78 96 03/06/20 15:20 93 H 112/78 99 03/06/20 15:15 92 H 32 H 113/79 98 03/06/20 15:00 92 H 31 H 115/80 98 03/06/20 14:45 92 H 32 H 107/75 98 03/06/20 14:30 90 33 H 112/78 99 03/06/20 14:15 92 H 17 116/75 99 03/06/20 14:00 86 27 H 101/57 99 03/06/20 13:45 87 29 H 114/78 98 03/06/20 13:30 96 H 17 122/82 99 03/06/20 13:15 90 31 H 114/76 98 03/06/20 13:00 88 32 H 114/79 98 03/06/20 12:45 87 29 H 114/74 98 03/06/20 12:30 85 28 H 108/74 99 03/06/20 12:15 84 28 H 112/76 99 03/06/20 12:00 81 95 H 28 H 110/72 98 03/06/20 11:48 89 113/73 98 03/06/20 11:45 86 28 H 103/69 98 03/06/20 11:30 88 29 H 117/78 98 03/06/20 11:15 87 26 H 113/73 98 03/06/20 11:00 92 H 28 H 113/74 99 03/06/20 10:45 98 H 31 H 129/92 99 03/06/20 10:30 92 H 28 H 116/76 99 03/06/20 10:21 91 H 119/78 03/06/20 10:20 90 119/78 03/06/20 10:15 91 H 29 H 119/78 99 03/06/20 10:00 87 30 H 130/89 99 03/06/20 09:45 93 H 30 H 123/81 99 03/06/20 09:30 85 27 H 118/77 99 03/06/20 09:15 88 30 H 125/81 99 03/06/20 09:00 89 29 H 113/74 99 03/06/20 08:45 87 29 H 117/77 99 03/06/20 08:30 82 25 H 122/79 99 03/06/20 08:15 100 H 16 119/79 99 03/06/20 08:00 83 90 27 H 116/73 99 03/06/20 07:45 86 27 H 110/69 99 03/06/20 07:30 84 22 102/65 99 03/06/20 07:15 86 28 H 109/68 99 03/06/20 07:00 102 H 21 127/76 99 03/06/20 06:45 85 26 H 103/66 99 03/06/20 06:30 93 H 31 H 116/75 99 03/06/20 06:15 88 26 H 110/72 99 03/06/20 06:00 89 27 H 107/69 99 03/06/20 05:45 88 29 H 114/73 99 03/06/20 05:30 87 28 H 114/74 99 03/06/20 05:15 91 H 29 H 115/79 99 03/06/20 05:00 86 27 H 132/87 99 03/06/20 04:45 86 29 H 127/86 99 03/06/20 04:30 101 H 25 H 132/80 99 03/06/20 04:15 73 28 H 140/82 98 03/06/20 04:10 80 114/78 99 03/06/20 04:00 98.7 F 76 30 H 114/78 99 03/06/20 03:45 89 31 H 122/83 99 03/06/20 03:30 95 H 29 H 132/86 100 03/06/20 03:15 91 H 29 H 127/86 100 03/06/20 03:00 90 33 H 127/89 98 03/06/20 02:45 87 26 H 136/90 99 03/06/20 02:30 109 H 18 133/88 98 03/06/20 02:15 90 35 H 127/89 98 03/06/20 02:00 89 18 128/89 98 03/06/20 01:45 92 H 24 129/85 98 03/06/20 01:30 88 29 H 120/78 98 03/06/20 01:15 86 29 H 118/80 98 03/06/20 01:00 86 30 H 121/79 98 03/06/20 00:45 86 18 112/79 97 03/06/20 00:30 83 28 H 125/81 98 03/06/20 00:15 84 29 H 118/77 98 03/06/20 00:00 98.1 F 85 28 H 113/76 98 03/05/20 23:51 81 118/76 99 03/05/20 23:45 87 25 H 118/76 100 03/05/20 23:30 83 28 H 117/77 100 03/05/20 23:15 86 22 113/77 100 03/05/20 23:00 86 28 H 126/84 100 03/05/20 22:45 89 28 H 119/81 100 03/05/20 22:30 80 29 H 118/81 100 03/05/20 22:15 82 26 H 123/85 100 03/05/20 22:00 85 30 H 121/83 100 03/05/20 21:45 78 31 H 124/82 100 03/05/20 21:30 86 25 H 121/85 99 03/05/20 21:29 51 L 19 124/85 99 03/05/20 21:15 86 9 L 124/85 100 03/05/20 21:12 105 H 22 119/81 100 03/05/20 21:08 88 126/86 03/05/20 21:00 76 31 H 126/86 100 03/05/20 20:52 105 H 119/84 100 - Labs and Meds CBC 03/06/20 Range/Units 14:00 WBC 12.1 H (4.5-11.0) K/mm3 RBC 3.08 L (3.65-5.03) M/mm3 Hgb 8.4 L (11.8-15.2) gm/dl Hct 27.0 L (35.5-45.6) % Plt Count 83 L (140-440) K/mm3 Comprehensive Metabolic Panel 03/06/20 Range/Units 14:00 Sodium 147 H (137-145) mmol/L Potassium 3.0 L D (3.6-5.0) mmol/L Chloride 114.6 H (98-107) mmol/L Carbon Dioxide 27 D (22-30) mmol/L BUN 36 H (9-20) mg/dL Creatinine 1.0 (0.8-1.3) mg/dL Glucose 133 H (75-100) mg/dL Calcium 8.0 L (8.4-10.2) mg/dL
[2020-03-06] MEDS: rifAMPin 300 MG CAP PO SCH (10:19)
[2020-03-06] MEDS: ETHAMBUTOL 400 MG TAB PO SCH (10:19)
[2020-03-06] MEDS: ISONIAZID 300 MG TAB PO SCH (10:19)
[2020-03-06] MEDS: PYRAZINAMIDE 500 MG TAB PO SCH (10:19)
[2020-03-06] MEDS: carvediloL 6.25 MG TAB PO SCH ×2 (10:20→21:48)
[2020-03-06] MEDS: GLYCOPYRROLATE 1 MG TAB PO SCH ×2 (10:20→21:30)
[2020-03-06] MEDS: FAMOTIDINE 20 MG TAB PO SCH ×2 (10:20→21:47)
[2020-03-06] MEDS: PYRIDOXINE 50 MG TAB PO SCH (10:20)
[2020-03-06] MEDS: SENNOSIDES/DOCUSATE SODIUM 8.6/50 MG TAB PO SCH ×2 (10:20→21:48)
[2020-03-06] MEDS: AMIODARONE 200 MG TAB PO SCH (10:21)
[2020-03-06] MEDS: SPIRONOLACTONE 25 MG TAB PO SCH (10:21)
[2020-03-06] MEDS: LISINOPRIL 5 MG TAB PO SCH (10:21)
[2020-03-06] MEDS: FUROSEMIDE 40 MG TAB PO SCH (10:22)
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
[2020-03-06 14:15] LABS: Hemoglobin 8.4 gm/dl (11.8-15.2); Mean Corpuscular HGB Conc 31 % (32-34); Mean Corpuscular Volume 88 fl (84-94); Platelet Count 83 K/mm3 (140-440); Red Blood Count 3.08 M/mm3 (3.65-5.03); Red Cell Distribution Width 25.6 % (13.2-15.2)
[2020-03-06 14:34] LABS: BUN/Creatinine Ratio 36; Blood Urea Nitrogen 36 mg/dL (9-20); Hemolysis Index 5
[2020-03-06 15:10] LABS: Anisocytosis 2+; Band Neutrophils # (Manual) 0.1 K/mm3; Basophils % (Manual) 0 % (0.0-1.8); Platelet Estimate Consistent w Auto; Total Cells Counted 100
[2020-03-06] MEDS: VANCOMYCIN 750 MG in SODIUM CHLORIDE 0.9% 250ML 250 ML IV SCH (15:27)
--- NOTE | 2020-03-06 16:21 | Progress Note ---
Assessment and Plan 44 y/o male admitted with hypoxemia, fever and brody catheter pain, subsequent cardiac arrest in the ED, resuscitated and intubated, now with hypotension, anion gap metabolic acidosis, acute respiratory failure, hypoglycemia and vtach/vfib, found to have severe left sided heart disease, now with cardiac arrest and re-intubation but awakens off sedation and follows commands. 1. Pulm-Down to 40%,minimal PEEP. Will speak with ID, but at this point, not sure that bronch is needed. Agree with wolff scan given records from [facility], very frail state. 2. CV-severe systolic heart failure. Cards following. They have added medi cations to the regimen. 3. Heme-Anemia. Etiology unknown. Could be from chronic disease. Thrombo cytopenia. Stopped all heparin products and HIT panel is pending. 4. Renal- No labs today. 5. Endo-restarted feeds via NG/Dobb laquita tube 6. 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 Abx therapy stopped. 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 ID follows. Very very guarded prognosis, especially if malignancy is present. CCT 31 minutes. Subjective Date of service: 03/06/20 Principal diagnosis: Acute respiratory failure Interval history: No acute events. Currently sedated on Versed at 2. Eyes open. Significant other is coming to visit later today. CXR is unchanged. Reviewed ID note, very helpful. Objective Vital Signs - 12hr 03/06/20 03/06/20 03/06/20 04:15 04:30 04:45 Pulse Rate 73 101 H 86 Pulse Rate [ From Monitor] Respiratory 28 H 25 H 29 H Rate Blood Pressure 140/82 132/80 127/86 O2 Sat by Pulse 98 99 99 Oximetry 03/06/20 03/06/20 03/06/20 05:00 05:15 05:30 Pulse Rate 86 91 H 87 Pulse Rate [ From Monitor] Respiratory 27 H 29 H 28 H Rate Blood Pressure 132/87 115/79 114/74 O2 Sat by Pulse 99 99 99 Oximetry 03/06/20 03/06/20 03/06/20 05:45 06:00 06:15 Pulse Rate 88 89 88 Pulse Rate [ From Monitor] Respiratory 29 H 27 H 26 H Rate Blood Pressure 114/73 107/69 110/72 O2 Sat by Pulse 99 99 99 Oximetry 03/06/20 03/06/20 03/06/20 06:30 06:45 07:00 Pulse Rate 93 H 85 102 H Pulse Rate [ From Monitor] Respiratory 31 H 26 H 21 Rate Blood Pressure 116/75 103/66 127/76 O2 Sat by Pulse 99 99 99 Oximetry 03/06/20 03/06/20 03/06/20 07:15 07:30 07:45 Pulse Rate 86 84 86 Pulse Rate [ From Monitor] Respiratory 28 H 22 27 H Rate Blood Pressure 109/68 102/65 110/69 O2 Sat by Pulse 99 99 99 Oximetry 03/06/20 03/06/20 03/06/20 08:00 08:15 08:30 Pulse Rate 83 100 H 82 Pulse Rate [ 90 From Monitor] Respiratory 27 H 16 25 H Rate Blood Pressure 116/73 119/79 122/79 O2 Sat by Pulse 99 99 99 Oximetry 03/06/20 03/06/20 03/06/20 08:45 09:00 09:15 Pulse Rate 87 89 88 Pulse Rate [ From Monitor] Respiratory 29 H 29 H 30 H Rate Blood Pressure 117/77 113/74 125/81 O2 Sat by Pulse 99 99 99 Oximetry 03/06/20 03/06/20 03/06/20 09:30 09:45 10:00 Pulse Rate 85 93 H 87 Pulse Rate [ From Monitor] Respiratory 27 H 30 H 30 H Rate Blood Pressure 118/77 123/81 130/89 O2 Sat by Pulse 99 99 99 Oximetry 03/06/20 03/06/20 03/06/20 10:15 10:20 10:21 Pulse Rate 91 H 90 91 H Pulse Rate [ From Monitor] Respiratory 29 H Rate Blood Pressure 119/78 119/78 119/78 O2 Sat by Pulse 99 Oximetry 03/06/20 03/06/20 03/06/20 10:30 10:45 11:00 Pulse Rate 92 H 98 H 92 H Pulse Rate [ From Monitor] Respiratory 28 H 31 H 28 H Rate Blood Pressure 116/76 129/92 113/74 O2 Sat by Pulse 99 99 99 Oximetry 03/06/20 03/06/20 03/06/20 11:15 11:30 11:45 Pulse Rate 87 88 86 Pulse Rate [ From Monitor] Respiratory 26 H 29 H 28 H Rate Blood Pressure 113/73 117/78 103/69 O2 Sat by Pulse 98 98 98 Oximetry 03/06/20 03/06/20 03/06/20 11:48 12:00 12:15 Pulse Rate 89 81 84 Pulse Rate [ 95 H From Monitor] Respiratory 28 H 28 H Rate Blood Pressure 113/73 110/72 112/76 O2 Sat by Pulse 98 98 99 Oximetry 03/06/20 03/06/20 03/06/20 12:30 12:45 13:00 Pulse Rate 85 87 88 Pulse Rate [ From Monitor] Respiratory 28 H 29 H 32 H Rate Blood Pressure 108/74 114/74 114/79 O2 Sat by Pulse 99 98 98 Oximetry 03/06/20 03/06/20 03/06/20 13:15 13:30 13:45 Pulse Rate 90 96 H 87 Pulse Rate [ From Monitor] Respiratory 31 H 17 29 H Rate Blood Pressure 114/76 122/82 114/78 O2 Sat by Pulse 98 99 98 Oximetry 03/06/20 03/06/20 03/06/20 14:00 14:15 14:30 Pulse Rate 86 92 H 90 Pulse Rate [ From Monitor] Respiratory 27 H 17 33 H Rate Blood Pressure 101/57 116/75 112/78 O2 Sat by Pulse 99 99 99 Oximetry 03/06/20 03/06/20 03/06/20 14:45 15:00 15:15 Pulse Rate 92 H 92 H 92 H Pulse Rate [ From Monitor] Respiratory 32 H 31 H 32 H Rate Blood Pressure 107/75 115/80 113/79 O2 Sat by Pulse 98 98 98 Oximetry 03/06/20 03/06/20 03/06/20 15:20 15:30 15:45 Pulse Rate 93 H 90 89 Pulse Rate [ From Monitor] Respiratory 17 12 Rate Blood Pressure 112/78 109/78 113/80 O2 Sat by Pulse 99 96 97 Oximetry 03/06/20 16:00 Pulse Rate 94 H Pulse Rate [ From Monitor] Respiratory 18 Rate Blood Pressure 122/88 O2 Sat by Pulse 98 Oximetry Constitutional: agitated, appears uncomfortable, other (on vent, critically ill) Eyes: icteric, injected ENT: other (orally intubated with poor dentition) Neck: supple, no JVD Effort: mildly labored, other (Tachypneic) Ascultation: Right: rhonchi (upper lobe), Bilateral: rales Percussion: Bilateral: not dull Cardiovascular: other (sinus tach) Gastrointestinal: normoactive bowel sounds, soft Extremities: other (per nursing report, decubitus ulcer) Neurologic: unable to assess CBC and BMP: 03/06/20 14:00 03/06/20 14:00 ABG, PT/INR, D-dimer: ABG ABG pH 7.373 (7.320-7.450) 03/06/20 04:00 POC ABG pCO2 34.5 mmHg (32.0-48.0) 03/06/20 04:00 ABG pCO2 43.1 mm Hg 03/05/20 04:20 POC ABG pO2 63.9 mmHg (83-108) L 03/06/20 04:00 ABG pO2 81.5 mm Hg (80.0-90.0) 03/05/20 04:20 POC ABG HCO3 19.6 03/06/20 04:00 ABG O2 Saturation 97.3 % (95.0-99.0) 03/05/20 04:20 PT/INR, D-dimer PT 17.9 Sec. (12.2-14.9) H 02/26/20 04:00 INR 1.46 (0.87-1.13) H 02/26/20 04:00 D-Dimer 3251.26 ng/mlDDU (0-234) H 02/25/20 03:37 Abnormal lab findings: Abnormal Labs 02/25/20 02/25/20 02/25/20 00:46 00:46 00:46 WBC RBC 3.22 L Hgb 8.9 L Hct 28.5 L MCH MCHC 31 L RDW 24.8 H Plt Count 452 H Lymph % (Auto) 9.1 L Lymph # (Auto) 0.9 L Seg Neutrophils % 86.6 H Seg Neuts % (Manual) Lymphocytes % (Manual) Nucleated RBC % Seg Neutrophils # 8.9 H Seg Neutrophils # Man Lymphocytes # (Manual) PT INR D-Dimer ABG pH POC ABG pCO2 POC ABG pO2 ABG pO2 ABG HCO3 ABG O2 Saturation ABG Base Excess ABG Hemoglobin ABG Oxyhemoglobin ABG Potassium ABG Chloride ABG Glucose Oxyhemoglobin Carboxyhemoglobin Sodium Potassium Chloride Carbon Dioxide BUN Glucose POC Glucose Lactic Acid 2.10 H* Calcium 8.3 L Ferritin AST ALT < 5 L Alkaline Phosphatase 187 H Lactate Dehydrogenase Total Creatine Kinase 28 L CK-MB (CK-2) Rel Index 8.5 H Troponin T 0.190 H* C-Reactive Protein Total Protein Albumin 2.5 L LDL Cholesterol Direct 45 L HDL Cholesterol 32 L Arterial Blood Glucose Urine WBC (Auto) Vancomycin Trough Crossmatch 02/25/20 02/25/20 02/25/20 02:32 03:37 03:37 WBC RBC Hgb Hct MCH MCHC RDW Plt Count Lymph % (Auto) Lymph # (Auto) Seg Neutrophils % Seg Neuts % (Manual) Lymphocytes % (Manual) Nucleated RBC % Seg Neutrophils # Seg Neutrophils # Man Lymphocytes # (Manual) PT INR D-Dimer 3251.26 H ABG pH POC ABG pCO2 POC ABG pO2 ABG pO2 ABG HCO3 ABG O2 Saturation ABG Base Excess ABG Hemoglobin ABG Oxyhemoglobin ABG Potassium ABG Chloride ABG Glucose Oxyhemoglobin Carboxyhemoglobin Sodium Potassium Chloride Carbon Dioxide BUN Glucose 144 H POC Glucose Lactic Acid Calcium Ferritin AST ALT Alkaline Phosphatase Lactate Dehydrogenase 234 H Total Creatine Kinase CK-MB (CK-2) Rel Index Troponin T C-Reactive Protein 8.80 H Total Protein Albumin LDL Cholesterol Direct HDL Cholesterol Arterial Blood Glucose Urine WBC (Auto) 68.0 H Vancomycin Trough Crossmatch 02/25/20 02/25/20 02/25/20 03:37 05:36 06:33 WBC RBC Hgb Hct MCH MCHC RDW Plt Count Lymph % (Auto) Lymph # (Auto) Seg Neutrophils % Seg Neuts % (Manual) Lymphocytes % (Manual) Nucleated RBC % Seg Neutrophils # Seg Neutrophils # Man Lymphocytes # (Manual) PT INR D-Dimer ABG pH POC ABG pCO2 POC ABG pO2 ABG pO2 ABG HCO3 ABG O2 Saturation ABG Base Excess ABG Hemoglobin ABG Oxyhemoglobin ABG Potassium ABG Chloride ABG Glucose Oxyhemoglobin Carboxyhemoglobin Sodium Potassium Chloride Carbon Dioxide BUN Glucose POC Glucose 234 H Lactic Acid Calcium Ferritin 450.5 H AST ALT Alkaline Phosphatase Lactate Dehydrogenase Total Creatine Kinase CK-MB (CK-2) Rel Index Troponin T 0.187 H* C-Reactive Protein Total Protein Albumin LDL Cholesterol Direct HDL Cholesterol Arterial Blood Glucose Urine WBC (Auto) Vancomycin Trough Crossmatch 02/25/20 02/25/20 02/25/20 09:30 13:10 16:27 WBC RBC Hgb Hct MCH MCHC RDW Plt Count Lymph % (Auto) Lymph # (Auto) Seg Neutrophils % Seg Neuts % (Manual) Lymphocytes % (Manual) Nucleated RBC % Seg Neutrophils # Seg Neutrophils # Man Lymphocytes # (Manual) PT INR D-Dimer ABG pH 7.149 L* 7.256 L POC ABG pCO2 POC ABG pO2 ABG pO2 165.3 H 64.5 L ABG HCO3 17.2 L 17.4 L ABG O2 Saturation 85.2 L ABG Base Excess -11.0 L -9.0 L ABG Hemoglobin 7.5 L 8.4 L ABG Oxyhemoglobin ABG Potassium ABG Chloride ABG Glucose Oxyhemoglobin 83.4 L Carboxyhemoglobin Sodium Potassium Chloride Carbon Dioxide BUN Glucose POC Glucose Lactic Acid 3.20 H* Calcium Ferritin AST ALT Alkaline Phosphatase Lactate Dehydrogenase Total Creatine Kinase CK-MB (CK-2) Rel Index Troponin T C-Reactive Protein Total Protein Albumin LDL Cholesterol Direct HDL Cholesterol Arterial Blood Glucose Urine WBC (Auto) Vancomycin Trough Crossmatch 02/26/20 02/26/20 02/26/20 04:00 04:00 04:00 WBC 20.4 H RBC 2.61 L Hgb 7.0 L Hct 24.5 L MCH 27 L MCHC 29 L RDW 25.1 H Plt Count Lymph % (Auto) Lymph # (Auto) Seg Neutrophils % Seg Neuts % (Manual) 92.0 H Lymphocytes % (Manual) 4.0 L Nucleated RBC % Seg Neutrophils # Seg Neutrophils # Man 18.8 H Lymphocytes # (Manual) 0.8 L PT 17.9 H INR 1.46 H D-Dimer ABG pH POC ABG pCO2 POC ABG pO2 ABG pO2 ABG HCO3 ABG O2 Saturation ABG Base Excess ABG Hemoglobin ABG Oxyhemoglobin ABG Potassium ABG Chloride ABG Glucose Oxyhemoglobin Carboxyhemoglobin Sodium Potassium Chloride 111.1 H Carbon Dioxide 14 L D BUN 29 H Glucose 57 L POC Glucose Lactic Acid Calcium 7.8 L Ferritin AST ALT Alkaline Phosphatase Lactate Dehydrogenase Total Creatine Kinase CK-MB (CK-2) Rel Index Troponin T C-Reactive Protein Total Protein Albumin LDL Cholesterol Direct HDL Cholesterol Arterial Blood Glucose Urine WBC (Auto) Vancomycin Trough Crossmatch 02/26/20 02/26/20 02/26/20 04:20 07:13 09:20 WBC RBC Hgb Hct MCH MCHC RDW Plt Count Lymph % (Auto) Lymph # (Auto) Seg Neutrophils % Seg Neuts % (Manual) Lymphocytes % (Manual) Nucleated RBC % Seg Neutrophils # Seg Neutrophils # Man Lymphocytes # (Manual) PT INR D-Dimer ABG pH 7.269 L POC ABG pCO2 POC ABG pO2 ABG pO2 236.1 H ABG HCO3 13.9 L ABG O2 Saturation 99.3 H ABG Base Excess -11.9 L ABG Hemoglobin 7.2 L ABG Oxyhemoglobin ABG Potassium ABG Chloride ABG Glucose Oxyhemoglobin Carboxyhemoglobin Sodium Potassium Chloride Carbon Dioxide BUN Glucose POC Glucose 52 L Lactic Acid Calcium Ferritin AST ALT Alkaline Phosphatase Lactate Dehydrogenase Total Creatine Kinase CK-MB (CK-2) Rel Index Troponin T C-Reactive Protein Total Protein Albumin LDL Cholesterol Direct HDL Cholesterol Arterial Blood Glucose Urine WBC (Auto) Vancomycin Trough Crossmatch See Detail 02/27/20 02/27/20 02/27/20 04:59 05:40 07:30 WBC 16.6 H RBC 3.07 L Hgb 8.4 L Hct 27.4 L MCH MCHC 31 L RDW 24.4 H Plt Count Lymph % (Auto) Lymph # (Auto) Seg Neutrophils % Seg Neuts % (Manual) Lymphocytes % (Manual) Nucleated RBC % Seg Neutrophils # Seg Neutrophils # Man Lymphocytes # (Manual) PT INR D-Dimer ABG pH 7.306 L POC ABG pCO2 POC ABG pO2 ABG pO2 149.6 H ABG HCO3 17.0 L ABG O2 Saturation ABG Base Excess -8.5 L ABG Hemoglobin 7.8 L ABG Oxyhemoglobin ABG Potassium ABG Chloride ABG Glucose Oxyhemoglobin Carboxyhemoglobin Sodium Potassium Chloride Carbon Dioxide BUN Glucose POC Glucose 64 L Lactic Acid Calcium Ferritin AST ALT Alkaline Phosphatase Lactate Dehydrogenase Total Creatine Kinase CK-MB (CK-2) Rel Index Troponin T C-Reactive Protein Total Protein Albumin LDL Cholesterol Direct HDL Cholesterol Arterial Blood Glucose Urine WBC (Auto) Vancomycin Trough Crossmatch 02/27/20 02/27/20 02/27/20 07:30 12:07 18:07 WBC RBC Hgb Hct MCH MCHC RDW Plt Count Lymph % (Auto) Lymph # (Auto) Seg Neutrophils % Seg Neuts % (Manual) Lymphocytes % (Manual) Nucleated RBC % Seg Neutrophils # Seg Neutrophils # Man Lymphocytes # (Manual) PT INR D-Dimer ABG pH POC ABG pCO2 POC ABG pO2 ABG pO2 ABG HCO3 ABG O2 Saturation ABG Base Excess ABG Hemoglobin ABG Oxyhemoglobin ABG Potassium ABG Chloride ABG Glucose Oxyhemoglobin Carboxyhemoglobin Sodium 146 H Potassium Chloride 115.0 H Carbon Dioxide 17 L BUN 29 H Glucose 72 L POC Glucose 116 H 63 L Lactic Acid Calcium 7.9 L Ferritin AST 118 H ALT Alkaline Phosphatase 273 H Lactate Dehydrogenase Total Creatine Kinase CK-MB (CK-2) Rel Index Troponin T C-Reactive Protein Total Protein 5.3 L D Albumin 2.0 L LDL Cholesterol Direct HDL Cholesterol Arterial Blood Glucose Urine WBC (Auto) Vancomycin Trough Crossmatch 02/27/20 02/28/20 02/28/20 23:41 04:30 05:30 WBC 12.5 H RBC 2.99 L Hgb 8.0 L Hct 26.6 L MCH 27 L MCHC 30 L RDW 24.8 H Plt Count Lymph % (Auto) 7.5 L Lymph # (Auto) 0.9 L Seg Neutrophils % 86.9 H Seg Neuts % (Manual) Lymphocytes % (Manual) Nucleated RBC % Seg Neutrophils # 10.8 H Seg Neutrophils # Man Lymphocytes # (Manual) PT INR D-Dimer ABG pH 7.240 L POC ABG pCO2 POC ABG pO2 ABG pO2 ABG HCO3 ABG O2 Saturation ABG Base Excess ABG Hemoglobin 9.0 L ABG Oxyhemoglobin ABG Potassium ABG Chloride ABG Glucose Oxyhemoglobin Carboxyhemoglobin Sodium Potassium Chloride Carbon Dioxide BUN Glucose POC Glucose 131 H Lactic Acid Calcium Ferritin AST ALT Alkaline Phosphatase Lactate Dehydrogenase Total Creatine Kinase CK-MB (CK-2) Rel Index Troponin T C-Reactive Protein Total Protein Albumin LDL Cholesterol Direct HDL Cholesterol Arterial Blood Glucose Urine WBC (Auto) Vancomycin Trough Crossmatch 02/28/20 02/28/20 02/28/20 06:00 09:00 17:25 WBC RBC Hgb Hct MCH MCHC RDW Plt Count Lymph % (Auto) Lymph # (Auto) Seg Neutrophils % Seg Neuts % (Manual) Lymphocytes % (Manual) Nucleated RBC % Seg Neutrophils # Seg Neutrophils # Man Lymphocytes # (Manual) PT INR D-Dimer ABG pH POC ABG pCO2 POC ABG pO2 ABG pO2 ABG HCO3 ABG O2 Saturation ABG Base Excess ABG Hemoglobin ABG Oxyhemoglobin ABG Potassium ABG Chloride ABG Glucose Oxyhemoglobin Carboxyhemoglobin Sodium Potassium Chloride Carbon Dioxide BUN Glucose POC Glucose 121 H 61 L Lactic Acid Calcium Ferritin AST ALT Alkaline Phosphatase Lactate Dehydrogenase Total Creatine Kinase CK-MB (CK-2) Rel Index Troponin T C-Reactive Protein Total Protein Albumin LDL Cholesterol Direct HDL Cholesterol Arterial Blood Glucose Urine WBC (Auto) Vancomycin Trough 29.0 H Crossmatch 02/28/20 02/29/20 02/29/20 Unknown 04:32 05:17 WBC RBC Hgb Hct MCH MCHC RDW Plt Count Lymph % (Auto) Lymph # (Auto) Seg Neutrophils % Seg Neuts % (Manual) Lymphocytes % (Manual) Nucleated RBC % Seg Neutrophils # Seg Neutrophils # Man Lymphocytes # (Manual) PT INR D-Dimer ABG pH POC ABG pCO2 22.5 L POC ABG pO2 119.7 H ABG pO2 ABG HCO3 ABG O2 Saturation ABG Base Excess ABG Hemoglobin 10.5 L ABG Oxyhemoglobin ABG Potassium ABG Chloride ABG Glucose Oxyhemoglobin Carboxyhemoglobin 0.3 L Sodium Potassium Chloride 114.7 H Carbon Dioxide 14 L BUN 30 H Glucose POC Glucose Lactic Acid Calcium 7.8 L Ferritin AST 193 H ALT Alkaline Phosphatase 354 H Lactate Dehydrogenase Total Creatine Kinase CK-MB (CK-2) Rel Index Troponin T C-Reactive Protein Total Protein 5.6 L Albumin 2.0 L LDL Cholesterol Direct HDL Cholesterol Arterial Blood Glucose Urine WBC (Auto) Vancomycin Trough Crossmatch 02/29/20 02/29/20 02/29/20 05:29 11:16 11:16 WBC 15.1 H RBC Hgb 10.1 L Hct 32.8 L D MCH 27 L MCHC 31 L RDW 25.2 H Plt Count Lymph % (Auto) Lymph # (Auto) Seg Neutrophils % Seg Neuts % (Manual) 98.0 H Lymphocytes % (Manual) 1.0 L Nucleated RBC % 5.0 H Seg Neutrophils # Seg Neutrophils # Man 14.8 H Lymphocytes # (Manual) 0.2 L PT INR D-Dimer ABG pH POC ABG pCO2 POC ABG pO2 ABG pO2 ABG HCO3 ABG O2 Saturation ABG Base Excess ABG Hemoglobin ABG Oxyhemoglobin ABG Potassium ABG Chloride ABG Glucose Oxyhemoglobin Carboxyhemoglobin Sodium Potassium 3.5 L Chloride 111.7 H Carbon Dioxide 14 L BUN 33 H Glucose 180 H POC Glucose 125 H Lactic Acid Calcium 7.8 L Ferritin AST ALT Alkaline Phosphatase Lactate Dehydrogenase Total Creatine Kinase CK-MB (CK-2) Rel Index Troponin T C-Reactive Protein Total Protein Albumin LDL Cholesterol Direct HDL Cholesterol Arterial Blood Glucose Urine WBC (Auto) Vancomycin Trough Crossmatch 02/29/20 02/29/20 02/29/20 12:55 17:53 23:38 WBC RBC Hgb Hct MCH MCHC RDW Plt Count Lymph % (Auto) Lymph # (Auto) Seg Neutrophils % Seg Neuts % (Manual) Lymphocytes % (Manual) Nucleated RBC % Seg Neutrophils # Seg Neutrophils # Man Lymphocytes # (Manual) PT INR D-Dimer ABG pH POC ABG pCO2 POC ABG pO2 ABG pO2 ABG HCO3 ABG O2 Saturation ABG Base Excess ABG Hemoglobin ABG Oxyhemoglobin ABG Potassium ABG Chloride ABG Glucose Oxyhemoglobin Carboxyhemoglobin Sodium Potassium Chloride Carbon Dioxide BUN Glucose POC Glucose 134 H 145 H 127 H Lactic Acid Calcium Ferritin AST ALT Alkaline Phosphatase Lactate Dehydrogenase Total Creatine Kinase CK-MB (CK-2) Rel Index Troponin T C-Reactive Protein Total Protein Albumin LDL Cholesterol Direct HDL Cholesterol Arterial Blood Glucose Urine WBC (Auto) Vancomycin Trough Crossmatch 03/01/20 03/01/20 03/01/20 03:46 05:44 07:55 WBC 14.0 H RBC Hgb 10.0 L Hct 32.3 L MCH 27 L MCHC 31 L RDW 25.4 H Plt Count 99 L Lymph % (Auto) Lymph # (Auto) Seg Neutrophils % Seg Neuts % (Manual) Lymphocytes % (Manual) Nucleated RBC % Seg Neutrophils # Seg Neutrophils # Man Lymphocytes # (Manual) PT INR D-Dimer ABG pH 7.288 L POC ABG pCO2 POC ABG pO2 ABG pO2 ABG HCO3 11.7 L ABG O2 Saturation ABG Base Excess -13.3 L ABG Hemoglobin ABG Oxyhemoglobin ABG Potassium ABG Chloride ABG Glucose Oxyhemoglobin Carboxyhemoglobin Sodium Potassium Chloride Carbon Dioxide BUN Glucose POC Glucose 177 H Lactic Acid Calcium Ferritin AST ALT Alkaline Phosphatase Lactate Dehydrogenase Total Creatine Kinase CK-MB (CK-2) Rel Index Troponin T C-Reactive Protein Total Protein Albumin LDL Cholesterol Direct HDL Cholesterol Arterial Blood Glucose Urine WBC (Auto) Vancomycin Trough Crossmatch 03/01/20 03/01/20 03/01/20 07:55 12:14 18:07 WBC RBC Hgb Hct MCH MCHC RDW Plt Count Lymph % (Auto) Lymph # (Auto) Seg Neutrophils % Seg Neuts % (Manual) Lymphocytes % (Manual) Nucleated RBC % Seg Neutrophils # Seg Neutrophils # Man Lymphocytes # (Manual) PT INR D-Dimer ABG pH POC ABG pCO2 POC ABG pO2 ABG pO2 ABG HCO3 ABG O2 Saturation ABG Base Excess ABG Hemoglobin ABG Oxyhemoglobin ABG Potassium ABG Chloride ABG Glucose Oxyhemoglobin Carboxyhemoglobin Sodium Potassium Chloride 111.5 H Carbon Dioxide 16 L BUN 36 H Glucose 157 H POC Glucose 163 H 109 H Lactic Acid Calcium 7.9 L Ferritin AST ALT Alkaline Phosphatase Lactate Dehydrogenase Total Creatine Kinase CK-MB (CK-2) Rel Index Troponin T C-Reactive Protein Total Protein Albumin LDL Cholesterol Direct HDL Cholesterol Arterial Blood Glucose Urine WBC (Auto) Vancomycin Trough Crossmatch 03/01/20 03/02/20 03/02/20 23:55 05:42 12:02 WBC RBC Hgb Hct MCH MCHC RDW Plt Count Lymph % (Auto) Lymph # (Auto) Seg Neutrophils % Seg Neuts % (Manual) Lymphocytes % (Manual) Nucleated RBC % Seg Neutrophils # Seg Neutrophils # Man Lymphocytes # (Manual) PT INR D-Dimer ABG pH POC ABG pCO2 POC ABG pO2 ABG pO2 ABG HCO3 ABG O2 Saturation ABG Base Excess ABG Hemoglobin ABG Oxyhemoglobin ABG Potassium ABG Chloride ABG Glucose Oxyhemoglobin Carboxyhemoglobin Sodium Potassium Chloride Carbon Dioxide BUN Glucose POC Glucose 132 H 146 H 147 H Lactic Acid Calcium Ferritin AST ALT Alkaline Phosphatase Lactate Dehydrogenase Total Creatine Kinase CK-MB (CK-2) Rel Index Troponin T C-Reactive Protein Total Protein Albumin LDL Cholesterol Direct HDL Cholesterol Arterial Blood Glucose Urine WBC (Auto) Vancomycin Trough Crossmatch 03/02/20 03/03/20 03/03/20 17:59 00:28 04:52 WBC 13.3 H RBC Hgb 9.9 L Hct 32.2 L MCH 27 L MCHC 31 L RDW 25.8 H Plt Count 67 L Lymph % (Auto) Lymph # (Auto) Seg Neutrophils % Seg Neuts % (Manual) Lymphocytes % (Manual) Nucleated RBC % Seg Neutrophils # Seg Neutrophils # Man Lymphocytes # (Manual) PT INR D-Dimer ABG pH POC ABG pCO2 POC ABG pO2 ABG pO2 ABG HCO3 ABG O2 Saturation ABG Base Excess ABG Hemoglobin ABG Oxyhemoglobin ABG Potassium ABG Chloride ABG Glucose Oxyhemoglobin Carboxyhemoglobin Sodium Potassium Chloride Carbon Dioxide BUN Glucose POC Glucose 113 H 114 H Lactic Acid Calcium Ferritin AST ALT Alkaline Phosphatase Lactate Dehydrogenase Total Creatine Kinase CK-MB (CK-2) Rel Index Troponin T C-Reactive Protein Total Protein Albumin LDL Cholesterol Direct HDL Cholesterol Arterial Blood Glucose Urine WBC (Auto) Vancomycin Trough Crossmatch 03/03/20 03/03/20 03/04/20 04:52 18:08 00:27 WBC RBC Hgb Hct MCH MCHC RDW Plt Count Lymph % (Auto) Lymph # (Auto) Seg Neutrophils % Seg Neuts % (Manual) Lymphocytes % (Manual) Nucleated RBC % Seg Neutrophils # Seg Neutrophils # Man Lymphocytes # (Manual) PT INR D-Dimer ABG pH POC ABG pCO2 POC ABG pO2 ABG pO2 ABG HCO3 ABG O2 Saturation ABG Base Excess ABG Hemoglobin ABG Oxyhemoglobin ABG Potassium ABG Chloride ABG Glucose Oxyhemoglobin Carboxyhemoglobin Sodium Potassium Chloride 112.7 H Carbon Dioxide 19 L BUN 35 H Glucose POC Glucose 119 H 120 H Lactic Acid Calcium Ferritin AST ALT Alkaline Phosphatase Lactate Dehydrogenase Total Creatine Kinase CK-MB (CK-2) Rel Index Troponin T C-Reactive Protein Total Protein Albumin LDL Cholesterol Direct HDL Cholesterol Arterial Blood Glucose Urine WBC (Auto) Vancomycin Trough Crossmatch 03/04/20 03/04/20 03/04/20 05:52 12:17 16:45 WBC 17.9 H RBC 3.57 L Hgb 9.6 L Hct 32.8 L MCH 27 L MCHC 29 L RDW 26.4 H Plt Count 136 L D Lymph % (Auto) Lymph # (Auto) Seg Neutrophils % Seg Neuts % (Manual) 91.0 H Lymphocytes % (Manual) 6.0 L Nucleated RBC % 2.0 H Seg Neutrophils # Seg Neutrophils # Man 16.3 H Lymphocytes # (Manual) 1.1 L PT INR D-Dimer ABG pH POC ABG pCO2 POC ABG pO2 ABG pO2 ABG HCO3 ABG O2 Saturation ABG Base Excess ABG Hemoglobin ABG Oxyhemoglobin ABG Potassium ABG Chloride ABG Glucose Oxyhemoglobin Carboxyhemoglobin Sodium Potassium Chloride Carbon Dioxide BUN Glucose POC Glucose 166 H 187 H Lactic Acid Calcium Ferritin AST ALT Alkaline Phosphatase Lactate Dehydrogenase Total Creatine Kinase CK-MB (CK-2) Rel Index Troponin T C-Reactive Protein Total Protein Albumin LDL Cholesterol Direct HDL Cholesterol Arterial Blood Glucose Urine WBC (Auto) Vancomycin Trough Crossmatch 03/04/20 03/04/20 03/04/20 16:45 18:29 22:44 WBC RBC Hgb Hct MCH MCHC RDW Plt Count Lymph % (Auto) Lymph # (Auto) Seg Neutrophils % Seg Neuts % (Manual) Lymphocytes % (Manual) Nucleated RBC % Seg Neutrophils # Seg Neutrophils # Man Lymphocytes # (Manual) PT INR D-Dimer ABG pH POC ABG pCO2 POC ABG pO2 ABG pO2 ABG HCO3 ABG O2 Saturation ABG Base Excess ABG Hemoglobin ABG Oxyhemoglobin ABG Potassium ABG Chloride ABG Glucose Oxyhemoglobin Carboxyhemoglobin Sodium 146 H Potassium Chloride 115.6 H Carbon Dioxide 21 L BUN 39 H Glucose 137 H POC Glucose 147 H 188 H Lactic Acid Calcium Ferritin AST ALT Alkaline Phosphatase 219 H Lactate Dehydrogenase Total Creatine Kinase CK-MB (CK-2) Rel Index Troponin T C-Reactive Protein Total Protein 5.7 L Albumin 1.9 L LDL Cholesterol Direct HDL Cholesterol Arterial Blood Glucose Urine WBC (Auto) Vancomycin Trough Crossmatch 03/05/20 03/05/20 03/05/20 01:05 04:20 04:56 WBC 20.9 H RBC 3.41 L Hgb 9.3 L Hct 30.5 L MCH 27 L MCHC 30 L RDW 26.0 H Plt Count 130 L Lymph % (Auto) Lymph # (Auto) Seg Neutrophils % Seg Neuts % (Manual) Lymphocytes % (Manual) Nucleated RBC % Seg Neutrophils # Seg Neutrophils # Man Lymphocytes # (Manual) PT INR D-Dimer ABG pH 7.225 L 7.280 L POC ABG pCO2 POC ABG pO2 ABG pO2 178.8 H ABG HCO3 19.8 L ABG O2 Saturation ABG Base Excess -7.3 L -6.3 L ABG Hemoglobin 10.0 L 5.0 L ABG Oxyhemoglobin ABG Potassium ABG Chloride ABG Glucose Oxyhemoglobin Carboxyhemoglobin Sodium Potassium Chloride Carbon Dioxide BUN Glucose POC Glucose Lactic Acid Calcium Ferritin AST ALT Alkaline Phosphatase Lactate Dehydrogenase Total Creatine Kinase CK-MB (CK-2) Rel Index Troponin T C-Reactive Protein Total Protein Albumin LDL Cholesterol Direct HDL Cholesterol Arterial Blood Glucose Urine WBC (Auto) Vancomycin Trough Crossmatch 03/05/20 03/05/20 03/05/20 04:56 05:29 11:27 WBC RBC Hgb Hct MCH MCHC RDW Plt Count Lymph % (Auto) Lymph # (Auto) Seg Neutrophils % Seg Neuts % (Manual) Lymphocytes % (Manual) Nucleated RBC % Seg Neutrophils # Seg Neutrophils # Man Lymphocytes # (Manual) PT INR D-Dimer ABG pH POC ABG pCO2 POC ABG pO2 ABG pO2 ABG HCO3 ABG O2 Saturation ABG Base Excess ABG Hemoglobin ABG Oxyhemoglobin ABG Potassium ABG Chloride ABG Glucose Oxyhemoglobin Carboxyhemoglobin Sodium 149 H Potassium Chloride 116.7 H Carbon Dioxide 19 L BUN 43 H Glucose 156 H POC Glucose 169 H 159 H Lactic Acid Calcium Ferritin AST ALT Alkaline Phosphatase Lactate Dehydrogenase Total Creatine Kinase CK-MB (CK-2) Rel Index Troponin T C-Reactive Protein Total Protein Albumin LDL Cholesterol Direct HDL Cholesterol Arterial Blood Glucose Urine WBC (Auto) Vancomycin Trough Crossmatch 03/05/20 03/05/20 03/06/20 17:56 23:57 04:00 WBC RBC Hgb Hct MCH MCHC RDW Plt Count Lymph % (Auto) Lymph # (Auto) Seg Neutrophils % Seg Neuts % (Manual) Lymphocytes % (Manual) Nucleated RBC % Seg Neutrophils # Seg Neutrophils # Man Lymphocytes # (Manual) PT INR D-Dimer ABG pH POC ABG pCO2 POC ABG pO2 63.9 L ABG pO2 ABG HCO3 ABG O2 Saturation ABG Base Excess ABG Hemoglobin 9.2 L ABG Oxyhemoglobin 91.6 L ABG Potassium 3.2 L ABG Chloride 117.0 H ABG Glucose 120 H Oxyhemoglobin Carboxyhemoglobin Sodium Potassium Chloride Carbon Dioxide BUN Glucose POC Glucose 154 H 153 H Lactic Acid Calcium Ferritin AST ALT Alkaline Phosphatase Lactate Dehydrogenase Total Creatine Kinase CK-MB (CK-2) Rel Index Troponin T C-Reactive Protein Total Protein Albumin LDL Cholesterol Direct HDL Cholesterol Arterial Blood Glucose 120 H Urine WBC (Auto) Vancomycin Trough Crossmatch 03/06/20 03/06/20 03/06/20 05:44 12:49 14:00 WBC 12.1 H RBC 3.08 L Hgb 8.4 L Hct 27.0 L MCH 27 L MCHC 31 L RDW 25.6 H Plt Count 83 L Lymph % (Auto) Lymph # (Auto) Seg Neutrophils % Seg Neuts % (Manual) 90.0 H Lymphocytes % (Manual) 3.0 L Nucleated RBC % Seg Neutrophils # Seg Neutrophils # Man 10.9 H Lymphocytes # (Manual) 0.4 L PT INR D-Dimer ABG pH POC ABG pCO2 POC ABG pO2 ABG pO2 ABG HCO3 ABG O2 Saturation ABG Base Excess ABG Hemoglobin ABG Oxyhemoglobin ABG Potassium ABG Chloride ABG Glucose Oxyhemoglobin Carboxyhemoglobin Sodium Potassium Chloride Carbon Dioxide BUN Glucose POC Glucose 147 H 128 H Lactic Acid Calcium Ferritin AST ALT Alkaline Phosphatase Lactate Dehydrogenase Total Creatine Kinase CK-MB (CK-2) Rel Index Troponin T C-Reactive Protein Total Protein Albumin LDL Cholesterol Direct HDL Cholesterol Arterial Blood Glucose Urine WBC (Auto) Vancomycin Trough Crossmatch 03/06/20 14:00 WBC RBC Hgb Hct MCH MCHC RDW Plt Count Lymph % (Auto) Lymph # (Auto) Seg Neutrophils % Seg Neuts % (Manual) Lymphocytes % (Manual) Nucleated RBC % Seg Neutrophils # Seg Neutrophils # Man Lymphocytes # (Manual) PT INR D-Dimer ABG pH POC ABG pCO2 POC ABG pO2 ABG pO2 ABG HCO3 ABG O2 Saturation ABG Base Excess ABG Hemoglobin ABG Oxyhemoglobin ABG Potassium ABG Chloride ABG Glucose Oxyhemoglobin Carboxyhemoglobin Sodium 147 H Potassium 3.0 L D Chloride 114.6 H Carbon Dioxide BUN 36 H Glucose 133 H POC Glucose Lactic Acid Calcium 8.0 L Ferritin AST ALT Alkaline Phosphatase Lactate Dehydrogenase Total Creatine Kinase CK-MB (CK-2) Rel Index Troponin T C-Reactive Protein Total Protein Albumin LDL Cholesterol Direct HDL Cholesterol Arterial Blood Glucose Urine WBC (Auto) Vancomycin Trough Crossmatch
[2020-03-06] MEDS: POTASSIUM CHLORIDE 20 MEQ 20 MEQ/100 ML BAG IV SCH ×2 (20:29→21:47)
--- NOTE | 2020-03-07 02:46 | XRay Report ---
CHEST 1 VIEW INDICATION: follow up respiratory failure COMPARISON: One day prior. FINDINGS: Support devices: Unchanged. Heart: Normal and unchanged Lungs/Pleura: Bilateral pulmonary disease, right midlung and entire left lung, unchanged. No new dise ase. IMPRESSION: 1. No significant change. Signer Name: Randal Powell MD Signed: 03/07/2020 2:41 AM Workstation Name: [id number]
[2020-03-07 05:36] LABS: Hematocrit 30.7 % (35.5-45.6); Hemoglobin 9.4 gm/dl (11.8-15.2); Mean Corpuscular HGB Conc 31 % (32-34); Mean Corpuscular Volume 88 fl (84-94); Red Blood Count 3.48 M/mm3 (3.65-5.03)
[2020-03-07 05:38] LABS: Platelet Count 93 K/mm3 (140-440); Red Cell Distribution Width 26.1 % (13.2-15.2)
[2020-03-07 05:42] LABS: ABG Base Excess 0.3 mmol/L (-2.0-3.0); ABG HCO3 24.8 mmol/L (20.0-26.0); ABG Methemoglobin 0.5 % (0.0-1.5); ABG PCO2 39.1 mm Hg; ABG PH 7.419 pH Units (7.350-7.450); ABG PO2 79.9 mm Hg (80.0-90.0)
[2020-03-07 05:45] LABS: BUN/Creatinine Ratio 35; Blood Urea Nitrogen 35 mg/dL (9-20); Calcium 8.3 mg/dL (8.4-10.2); Hemolysis Index 3
[2020-03-07] MEDS: METHADONE 10 MG TAB PO SCH ×3 (08:01→21:29)
[2020-03-07] MEDS: rifAMPin 300 MG CAP PO SCH (09:12)
[2020-03-07] MEDS: ISONIAZID 300 MG TAB PO SCH (09:12)
[2020-03-07] MEDS: SENNOSIDES/DOCUSATE SODIUM 8.6/50 MG TAB PO SCH ×2 (09:12→21:30)
[2020-03-07] MEDS: FAMOTIDINE 20 MG TAB PO SCH ×2 (09:12→21:29)
[2020-03-07] MEDS: GLYCOPYRROLATE 1 MG TAB PO SCH ×2 (09:12→21:29)
[2020-03-07] MEDS: AMIODARONE 200 MG TAB PO SCH (09:13)
[2020-03-07] MEDS: PYRAZINAMIDE 500 MG TAB PO SCH (09:13)
[2020-03-07] MEDS: SPIRONOLACTONE 25 MG TAB PO SCH (09:13)
[2020-03-07] MEDS: carvediloL 6.25 MG TAB PO SCH ×2 (09:13→21:30)
[2020-03-07] MEDS: ETHAMBUTOL 400 MG TAB PO SCH (09:13)
[2020-03-07] MEDS: FUROSEMIDE 40 MG TAB PO SCH (09:13)
[2020-03-07] MEDS: PYRIDOXINE 50 MG TAB PO SCH (09:13)
[2020-03-07] MEDS: LISINOPRIL 5 MG TAB PO SCH (09:14)
[2020-03-07] MEDS ORDERED: MEROPENEM/NS 1 GRAM/100 ML 1 GRAM/100 ML BAG IV SCH (10:00)
--- NOTE | 2020-03-07 10:24 | Progress Note ---
Assessment and Plan S/P PEA arrest 03/04 Acute respiratory failure Bilateral pneumonia Dilated cardiomyopathy, uncertain chronicity LVEF 15 to 20% by echo this presentation Reports of Transient VF following multiple rounds of epi during code BLUE on 02/24 no strips available for review currently in sinus rhythm on amiodarone for suppression. Recent history of tuberculosis Paraplegia large upper pole renal mass concerning for renal cell carcinoma as per [place] records Continue amiodarone for suppression of arrhythmias. Guideline directed optimal medical therapy for dilated cardiomyopathy. Otherwise, conservative cardiac management. Subjective Date of service: 03/07/20 Principal diagnosis: Acute respiratory failure Interval history: No cardiac event reported overnight. Remains intubated on the vent. Objective Vital Signs Temp Pulse Pulse Resp BP Pulse Ox 03/07/20 09:30 104 H 34 H 132/96 100 03/07/20 09:15 103 H 29 H 144/96 100 03/07/20 09:14 102 H 143/101 03/07/20 09:13 102 H 143/101 03/07/20 09:00 103 H 18 143/101 100 03/07/20 08:45 102 H 37 H 140/101 100 03/07/20 08:30 102 H 23 135/95 100 03/07/20 08:15 99 H 23 140/96 99 03/07/20 08:00 99 H 101 H 37 H 140/100 100 03/07/20 07:45 100 H 32 H 146/96 100 03/07/20 07:44 98 H 146/96 100 03/07/20 07:30 93 H 32 H 137/101 99 03/07/20 07:15 98 H 34 H 135/95 100 03/07/20 07:00 98 H 25 H 142/103 100 03/07/20 06:45 90 32 H 137/95 99 03/07/20 06:30 92 H 20 136/93 99 03/07/20 06:15 92 H 20 131/94 99 03/07/20 06:00 101 H 12 143/91 99 03/07/20 05:45 92 H 33 H 133/94 100 03/07/20 05:30 92 H 16 137/102 99 03/07/20 05:15 94 H 26 H 130/92 100 03/07/20 05:00 93 H 34 H 130/97 100 03/07/20 04:45 91 H 34 H 135/96 100 03/07/20 04:30 90 34 H 131/95 100 03/07/20 04:15 90 21 126/92 100 03/07/20 04:00 97.2 F L 88 88 26 H 125/93 99 03/07/20 03:45 89 32 H 129/93 99 03/07/20 03:30 90 26 H 127/92 100 03/07/20 03:15 88 32 H 126/92 99 03/07/20 03:00 90 25 H 126/90 99 03/07/20 02:45 88 31 H 126/90 99 03/07/20 02:30 90 32 H 128/92 99 03/07/20 02:15 93 H 31 H 121/90 97 03/07/20 02:00 91 H 33 H 120/89 99 03/07/20 01:45 90 32 H 127/90 98 03/07/20 01:30 93 H 29 H 120/90 99 03/07/20 01:15 92 H 32 H 121/89 99 03/07/20 01:00 90 26 H 123/87 100 03/07/20 00:45 91 H 20 120/88 100 03/07/20 00:30 88 24 118/84 100 03/07/20 00:15 87 25 H 114/84 100 03/07/20 00:00 97.0 F L 91 H 88 15 117/88 100 03/06/20 23:45 91 H 30 H 112/83 100 03/06/20 23:30 89 13 108/79 100 03/06/20 23:17 92 H 30 H 113/81 100 03/06/20 23:15 92 H 22 113/81 100 03/06/20 23:01 90 17 119/86 100 03/06/20 23:00 92 H 13 119/86 100 03/06/20 22:45 91 H 24 112/83 100 03/06/20 22:30 93 H 17 117/85 99 03/06/20 22:15 98 H 13 122/88 100 03/06/20 22:00 97 H 9 L 128/93 100 03/06/20 21:48 104 H 128/93 03/06/20 21:45 99 H 14 128/93 99 03/06/20 21:30 98 H 24 125/91 99 10/05/20 21:15 98 H 17 126/91 99 0520 21:00 99 H 14 127/91 99 0520 20:45 97 H 15 127/92 99 0520 20:34 93 H 130/96 98 05/20 20:30 98 H 19 130/96 99 0520 20:15 93 H 28 H 123/84 99 0520 20:00 98.0 F 97 H 97 H 25 H 132/89 99 05 19:45 94 H 29 H 122/84 98 05 19:30 95 H 31 H 129/91 99 05 19:15 95 H 31 H 132/92 99 05 19:00 96 H 31 H 129/89 98 05 18:45 92 H 31 H 128/90 98 03/06/20 18:30 96 H 31 H 136/93 99 03/06/20 18:15 95 H 31 H 128/91 98 03/06/20 18:00 95 H 31 H 136/92 99 05 17:45 98 H 33 H 137/94 98 03/06/20 17:30 97 H 21 131/94 99 03/06/20 17:15 93 H 31 H 133/93 99 03/06/20 17:00 97 H 31 H 130/94 98 05 16:45 91 H 18 135/92 98 03/06/20 16:30 100 H 22 132/92 98 03/06/20 16:15 93 H 24 127/90 98 03/06/20 16:13 98.5 F 03/06/20 16:00 98.6 F 94 H 95 H 18 122/88 98 05 15:45 89 12 113/80 97 05/20 15:30 90 17 109/78 96 05 15:20 93 H 112/78 99 05 15:15 92 H 32 H 113/79 98 05 15:00 92 H 31 H 115/80 98 05 14:45 92 H 32 H 107/75 98 05 14:30 90 33 H 112/78 99 05 14:15 92 H 17 116/75 99 03/06/20 14:00 86 27 H 101/57 99 03/06/20 13:45 87 29 H 114/78 98 03/06/20 13:30 96 H 17 122/82 99 03/06/20 13:15 90 31 H 114/76 98 03/06/20 13:00 88 32 H 114/79 98 03/06/20 12:45 87 29 H 114/74 98 03/06/20 12:30 85 28 H 108/74 99 03/06/20 12:15 84 28 H 112/76 99 03/06/20 12:00 81 95 H 28 H 110/72 98 03/06/20 11:48 89 113/73 98 03/06/20 11:45 86 28 H 103/69 98 03/06/20 11:30 88 29 H 117/78 98 03/06/20 11:15 87 26 H 113/73 98 03/06/20 11:00 92 H 28 H 113/74 99 03/06/20 10:45 98 H 31 H 129/92 99 03/06/20 10:30 92 H 28 H 116/76 99 03/06/20 10:21 91 H 119/78 - Physical Examination General: Other (intubated on the vent) HEENT: Positive: PERRL Cardiac: Positive: Reg Rate and Rhythm - Labs and Meds CBC 03/06/20 03/07/20 Range/Units 14:00 05:13 WBC 12.1 H 12.5 H (4.5-11.0) K/mm3 RBC 3.08 L 3.48 L (3.65-5.03) M/mm3 Hgb 8.4 L 9.4 L (11.8-15.2) gm/dl Hct 27.0 L 30.7 L (35.5-45.6) % Plt Count 83 L 93 L (140-440) K/mm3 Comprehensive Metabolic Panel 03/06/20 03/07/20 Range/Units 14:00 05:13 Sodium 147 H 151 H (137-145) mmol/L Potassium 3.0 L D 3.7 D (3.6-5.0) mmol/L Chloride 114.6 H 115.5 H (98-107) mmol/L Carbon Dioxide 27 D 24 (22-30) mmol/L BUN 36 H 35 H (9-20) mg/dL Creatinine 1.0 1.0 (0.8-1.3) mg/dL Glucose 133 H 134 H (75-100) mg/dL Calcium 8.0 L 8.3 L (8.4-10.2) mg/dL
--- NOTE | 2020-03-07 10:50 | Progress Note ---
Assessment and Plan 44 y/o male admitted with hypoxemia, fever and brody catheter pain, subsequent cardiac arrest in the ED, resuscitated and intubated, now with hypotension, anion gap metabolic acidosis, acute respiratory failure, hypoglycemia and vtach/vfib, found to have severe left sided heart disease, now with cardiac arrest and re-intubation but awakens off sedation and follows commands. 1. Pulm-Down to 40%,minimal PEEP. Spoke with Mother over the phone who gave consent to to myself and nurse over the phone for consent for CT of chest abdomen and pelvis with contrast. Will attempt PSV today. 2. CV-severe systolic heart failure. Cards following. They have added medications to the regimen. 3. Heme-Anemia. Etiology unknown. Could be from chronic disease. Thrombocytopenia. Stopped all heparin products and HIT panel is pending. HIT was negative. Can resume DVT prophylaxis. 4. Renal- Function is normal. Dietary to increase free water. 5. Endo-restarted feeds via NG/Dobb laquita tube, dietary to increase free water. 6. 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 Abx therapy stopped. 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 ID follows. Family has agreed to consent. Will get imaging today. May need biopsy and sounds like mother would be on board with this. For all decisions she needs to be called. Her Name is Zonia Floyd [phone]. Spoke with CM who will send out referrals to LTACH. I suspect given degree of heart failure, patient will only do well with PPV as he likes the afterload reduction. May end up requiring trach for intermediate designer stability. Very very guarded prognosis, especially if malignancy is present. CCT 31 minutes. Subjective Date of service: 03/07/20 Principal diagnosis: Acute respiratory failure Interval history: No acute events. Remains awake, still on versed. On full support on the vent. Spoke with Mother and a [id number]. Objective Vital Signs - 12hr 03/06/20 03/06/20 03/06/20 23:00 23:01 23:15 Temperature Pulse Rate 92 H 90 92 H Pulse Rate [ From Monitor] Respiratory 13 17 22 Rate Blood Pressure 119/86 119/86 113/81 O2 Sat by Pulse 100 100 100 Oximetry 03/06/20 03/06/20 03/06/20 23:17 23:30 23:45 Temperature Pulse Rate 92 H 89 91 H Pulse Rate [ From Monitor] Respiratory 30 H 13 30 H Rate Blood Pressure 113/81 108/79 112/83 O2 Sat by Pulse 100 100 100 Oximetry 03/07/20 03/07/20 03/07/20 00:00 00:15 00:30 Temperature 97.0 F L Pulse Rate 91 H 87 88 Pulse Rate [ 88 From Monitor] Respiratory 15 25 H 24 Rate Blood Pressure 117/88 114/84 118/84 O2 Sat by Pulse 100 100 100 Oximetry 03/07/20 03/07/20 03/07/20 00:45 01:00 01:15 Temperature Pulse Rate 91 H 90 92 H Pulse Rate [ From Monitor] Respiratory 20 26 H 32 H Rate Blood Pressure 120/88 123/87 121/89 O2 Sat by Pulse 100 100 99 Oximetry 03/07/20 03/07/20 03/07/20 01:30 01:45 02:00 Temperature Pulse Rate 93 H 90 91 H Pulse Rate [ From Monitor] Respiratory 29 H 32 H 33 H Rate Blood Pressure 120/90 127/90 120/89 O2 Sat by Pulse 99 98 99 Oximetry 03/07/20 03/07/20 03/07/20 02:15 02:30 02:45 Temperature Pulse Rate 93 H 90 88 Pulse Rate [ From Monitor] Respiratory 31 H 32 H 31 H Rate Blood Pressure 121/90 128/92 126/90 O2 Sat by Pulse 97 99 99 Oximetry 03/07/20 03/07/20 03/07/20 03:00 03:15 03:30 Temperature Pulse Rate 90 88 90 Pulse Rate [ From Monitor] Respiratory 25 H 32 H 26 H Rate Blood Pressure 126/90 126/92 127/92 O2 Sat by Pulse 99 99 100 Oximetry 03/07/20 03/07/20 03/07/20 03:45 04:00 04:15 Temperature 97.2 F L Pulse Rate 89 88 90 Pulse Rate [ 88 From Monitor] Respiratory 32 H 26 H 21 Rate Blood Pressure 129/93 125/93 126/92 O2 Sat by Pulse 99 99 100 Oximetry 03/07/20 03/07/20 03/07/20 04:30 04:45 05:00 Temperature Pulse Rate 90 91 H 93 H Pulse Rate [ From Monitor] Respiratory 34 H 34 H 34 H Rate Blood Pressure 131/95 135/96 130/97 O2 Sat by Pulse 100 100 100 Oximetry 03/07/20 03/07/20 03/07/20 05:15 05:30 05:45 Temperature Pulse Rate 94 H 92 H 92 H Pulse Rate [ From Monitor] Respiratory 26 H 16 33 H Rate Blood Pressure 130/92 137/102 133/94 O2 Sat by Pulse 100 99 100 Oximetry 03/07/20 03/07/20 03/07/20 06:00 06:15 06:30 Temperature Pulse Rate 101 H 92 H 92 H Pulse Rate [ From Monitor] Respiratory 12 20 20 Rate Blood Pressure 143/91 131/94 136/93 O2 Sat by Pulse 99 99 99 Oximetry 03/07/20 03/07/20 03/07/20 06:45 07:00 07:15 Temperature Pulse Rate 90 98 H 98 H Pulse Rate [ From Monitor] Respiratory 32 H 25 H 34 H Rate Blood Pressure 137/95 142/103 135/95 O2 Sat by Pulse 99 100 100 Oximetry 03/07/20 03/07/20 03/07/20 07:30 07:44 07:45 Temperature Pulse Rate 93 H 98 H 100 H Pulse Rate [ From Monitor] Respiratory 32 H 32 H Rate Blood Pressure 137/101 146/96 146/96 O2 Sat by Pulse 99 100 100 Oximetry 03/07/20 03/07/20 03/07/20 08:00 08:15 08:30 Temperature Pulse Rate 99 H 99 H 102 H Pulse Rate [ 101 H From Monitor] Respiratory 37 H 23 23 Rate Blood Pressure 140/100 140/96 135/95 O2 Sat by Pulse 100 99 100 Oximetry 03/07/20 03/07/20 03/07/20 08:45 09:00 09:13 Temperature Pulse Rate 102 H 103 H 102 H Pulse Rate [ From Monitor] Respiratory 37 H 18 Rate Blood Pressure 140/101 143/101 143/101 O2 Sat by Pulse 100 100 Oximetry 03/07/20 03/07/20 03/07/20 09:14 09:15 09:30 Temperature Pulse Rate 102 H 103 H 104 H Pulse Rate [ From Monitor] Respiratory 29 H 34 H Rate Blood Pressure 143/101 144/96 132/96 O2 Sat by Pulse 100 100 Oximetry Constitutional: agitated, appears uncomfortable, other (on vent, critically ill) Eyes: icteric, injected ENT: other (orally intubated with poor dentition) Neck: supple, no JVD Effort: mildly labored, other (Tachypneic) Ascultation: Right: rhonchi (upper lobe), Bilateral: rales Percussion: Bilateral: not dull Cardiovascular: other (sinus tach) Gastrointestinal: normoactive bowel sounds, soft Extremities: other (per nursing report, decubitus ulcer) Neurologic: unable to assess CBC and BMP: 03/07/20 05:13 03/07/20 05:13 ABG, PT/INR, D-dimer: ABG ABG pH 7.419 pH Units (7.350-7.450) 03/07/20 05:23 POC ABG pCO2 34.5 mmHg (32.0-48.0) 03/06/20 04:00 ABG pCO2 39.1 mm Hg 03/07/20 05:23 POC ABG pO2 63.9 mmHg (83-108) L 03/06/20 04:00 ABG pO2 79.9 mm Hg (80.0-90.0) L 03/07/20 05:23 POC ABG HCO3 19.6 03/06/20 04:00 ABG O2 Saturation 97.0 % (95.0-99.0) 03/07/20 05:23 PT/INR, D-dimer PT 17.9 Sec. (12.2-14.9) H 02/26/20 04:00 INR 1.46 (0.87-1.13) H 02/26/20 04:00 D-Dimer 3251.26 ng/mlDDU (0-234) H 02/25/20 03:37 Abnormal lab findings: Abnormal Labs 02/25/20 02/25/20 02/25/20 00:46 00:46 00:46 WBC RBC 3.22 L Hgb 8.9 L Hct 28.5 L MCH MCHC 31 L RDW 24.8 H Plt Count 452 H Lymph % (Auto) 9.1 L Lymph # (Auto) 0.9 L Seg Neutrophils % 86.6 H Seg Neuts % (Manual) Lymphocytes % (Manual) Nucleated RBC % Seg Neutrophils # 8.9 H Seg Neutrophils # Man Lymphocytes # (Manual) PT INR D-Dimer ABG pH POC ABG pCO2 POC ABG pO2 ABG pO2 ABG HCO3 ABG O2 Saturation ABG Base Excess ABG Hemoglobin ABG Oxyhemoglobin ABG Potassium ABG Chloride ABG Glucose Oxyhemoglobin Carboxyhemoglobin Sodium Potassium Chloride Carbon Dioxide BUN Glucose POC Glucose Lactic Acid 2.10 H* Calcium 8.3 L Ferritin AST ALT < 5 L Alkaline Phosphatase 187 H Lactate Dehydrogenase Total Creatine Kinase 28 L CK-MB (CK-2) Rel Index 8.5 H Troponin T 0.190 H* C-Reactive Protein Total Protein Albumin 2.5 L LDL Cholesterol Direct 45 L HDL Cholesterol 32 L Arterial Blood Glucose Urine WBC (Auto) Vancomycin Trough Crossmatch 02/25/20 02/25/20 02/25/20 02:32 03:37 03:37 WBC RBC Hgb Hct MCH MCHC RDW Plt Count Lymph % (Auto) Lymph # (Auto) Seg Neutrophils % Seg Neuts % (Manual) Lymphocytes % (Manual) Nucleated RBC % Seg Neutrophils # Seg Neutrophils # Man Lymphocytes # (Manual) PT INR D-Dimer 3251.26 H ABG pH POC ABG pCO2 POC ABG pO2 ABG pO2 ABG HCO3 ABG O2 Saturation ABG Base Excess ABG Hemoglobin ABG Oxyhemoglobin ABG Potassium ABG Chloride ABG Glucose Oxyhemoglobin Carboxyhemoglobin Sodium Potassium Chloride Carbon Dioxide BUN Glucose 144 H POC Glucose Lactic Acid Calcium Ferritin AST ALT Alkaline Phosphatase Lactate Dehydrogenase 234 H Total Creatine Kinase CK-MB (CK-2) Rel Index Troponin T C-Reactive Protein 8.80 H Total Protein Albumin LDL Cholesterol Direct HDL Cholesterol Arterial Blood Glucose Urine WBC (Auto) 68.0 H Vancomycin Trough Crossmatch 02/25/20 02/25/20 02/25/20 03:37 05:36 06:33 WBC RBC Hgb Hct MCH MCHC RDW Plt Count Lymph % (Auto) Lymph # (Auto) Seg Neutrophils % Seg Neuts % (Manual) Lymphocytes % (Manual) Nucleated RBC % Seg Neutrophils # Seg Neutrophils # Man Lymphocytes # (Manual) PT INR D-Dimer ABG pH POC ABG pCO2 POC ABG pO2 ABG pO2 ABG HCO3 ABG O2 Saturation ABG Base Excess ABG Hemoglobin ABG Oxyhemoglobin ABG Potassium ABG Chloride ABG Glucose Oxyhemoglobin Carboxyhemoglobin Sodium Potassium Chloride Carbon Dioxide BUN Glucose POC Glucose 234 H Lactic Acid Calcium Ferritin 450.5 H AST ALT Alkaline Phosphatase Lactate Dehydrogenase Total Creatine Kinase CK-MB (CK-2) Rel Index Troponin T 0.187 H* C-Reactive Protein Total Protein Albumin LDL Cholesterol Direct HDL Cholesterol Arterial Blood Glucose Urine WBC (Auto) Vancomycin Trough Crossmatch 02/25/20 02/25/20 02/25/20 09:30 13:10 16:27 WBC RBC Hgb Hct MCH MCHC RDW Plt Count Lymph % (Auto) Lymph # (Auto) Seg Neutrophils % Seg Neuts % (Manual) Lymphocytes % (Manual) Nucleated RBC % Seg Neutrophils # Seg Neutrophils # Man Lymphocytes # (Manual) PT INR D-Dimer ABG pH 7.149 L* 7.256 L POC ABG pCO2 POC ABG pO2 ABG pO2 165.3 H 64.5 L ABG HCO3 17.2 L 17.4 L ABG O2 Saturation 85.2 L ABG Base Excess -11.0 L -9.0 L ABG Hemoglobin 7.5 L 8.4 L ABG Oxyhemoglobin ABG Potassium ABG Chloride ABG Glucose Oxyhemoglobin 83.4 L Carboxyhemoglobin Sodium Potassium Chloride Carbon Dioxide BUN Glucose POC Glucose Lactic Acid 3.20 H* Calcium Ferritin AST ALT Alkaline Phosphatase Lactate Dehydrogenase Total Creatine Kinase CK-MB (CK-2) Rel Index Troponin T C-Reactive Protein Total Protein Albumin LDL Cholesterol Direct HDL Cholesterol Arterial Blood Glucose Urine WBC (Auto) Vancomycin Trough Crossmatch 02/26/20 02/26/20 02/26/20 04:00 04:00 04:00 WBC 20.4 H RBC 2.61 L Hgb 7.0 L Hct 24.5 L MCH 27 L MCHC 29 L RDW 25.1 H Plt Count Lymph % (Auto) Lymph # (Auto) Seg Neutrophils % Seg Neuts % (Manual) 92.0 H Lymphocytes % (Manual) 4.0 L Nucleated RBC % Seg Neutrophils # Seg Neutrophils # Man 18.8 H Lymphocytes # (Manual) 0.8 L PT 17.9 H INR 1.46 H D-Dimer ABG pH POC ABG pCO2 POC ABG pO2 ABG pO2 ABG HCO3 ABG O2 Saturation ABG Base Excess ABG Hemoglobin ABG Oxyhemoglobin ABG Potassium ABG Chloride ABG Glucose Oxyhemoglobin Carboxyhemoglobin Sodium Potassium Chloride 111.1 H Carbon Dioxide 14 L D BUN 29 H Glucose 57 L POC Glucose Lactic Acid Calcium 7.8 L Ferritin AST ALT Alkaline Phosphatase Lactate Dehydrogenase Total Creatine Kinase CK-MB (CK-2) Rel Index Troponin T C-Reactive Protein Total Protein Albumin LDL Cholesterol Direct HDL Cholesterol Arterial Blood Glucose Urine WBC (Auto) Vancomycin Trough Crossmatch 02/26/20 02/26/20 02/26/20 04:20 07:13 09:20 WBC RBC Hgb Hct MCH MCHC RDW Plt Count Lymph % (Auto) Lymph # (Auto) Seg Neutrophils % Seg Neuts % (Manual) Lymphocytes % (Manual) Nucleated RBC % Seg Neutrophils # Seg Neutrophils # Man Lymphocytes # (Manual) PT INR D-Dimer ABG pH 7.269 L POC ABG pCO2 POC ABG pO2 ABG pO2 236.1 H ABG HCO3 13.9 L ABG O2 Saturation 99.3 H ABG Base Excess -11.9 L ABG Hemoglobin 7.2 L ABG Oxyhemoglobin ABG Potassium ABG Chloride ABG Glucose Oxyhemoglobin Carboxyhemoglobin Sodium Potassium Chloride Carbon Dioxide BUN Glucose POC Glucose 52 L Lactic Acid Calcium Ferritin AST ALT Alkaline Phosphatase Lactate Dehydrogenase Total Creatine Kinase CK-MB (CK-2) Rel Index Troponin T C-Reactive Protein Total Protein Albumin LDL Cholesterol Direct HDL Cholesterol Arterial Blood Glucose Urine WBC (Auto) Vancomycin Trough Crossmatch See Detail 02/27/20 02/27/20 02/27/20 04:59 05:40 07:30 WBC 16.6 H RBC 3.07 L Hgb 8.4 L Hct 27.4 L MCH MCHC 31 L RDW 24.4 H Plt Count Lymph % (Auto) Lymph # (Auto) Seg Neutrophils % Seg Neuts % (Manual) Lymphocytes % (Manual) Nucleated RBC % Seg Neutrophils # Seg Neutrophils # Man Lymphocytes # (Manual) PT INR D-Dimer ABG pH 7.306 L POC ABG pCO2 POC ABG pO2 ABG pO2 149.6 H ABG HCO3 17.0 L ABG O2 Saturation ABG Base Excess -8.5 L ABG Hemoglobin 7.8 L ABG Oxyhemoglobin ABG Potassium ABG Chloride ABG Glucose Oxyhemoglobin Carboxyhemoglobin Sodium Potassium Chloride Carbon Dioxide BUN Glucose POC Glucose 64 L Lactic Acid Calcium Ferritin AST ALT Alkaline Phosphatase Lactate Dehydrogenase Total Creatine Kinase CK-MB (CK-2) Rel Index Troponin T C-Reactive Protein Total Protein Albumin LDL Cholesterol Direct HDL Cholesterol Arterial Blood Glucose Urine WBC (Auto) Vancomycin Trough Crossmatch 02/27/20 02/27/20 02/27/20 07:30 12:07 18:07 WBC RBC Hgb Hct MCH MCHC RDW Plt Count Lymph % (Auto) Lymph # (Auto) Seg Neutrophils % Seg Neuts % (Manual) Lymphocytes % (Manual) Nucleated RBC % Seg Neutrophils # Seg Neutrophils # Man Lymphocytes # (Manual) PT INR D-Dimer ABG pH POC ABG pCO2 POC ABG pO2 ABG pO2 ABG HCO3 ABG O2 Saturation ABG Base Excess ABG Hemoglobin ABG Oxyhemoglobin ABG Potassium ABG Chloride ABG Glucose Oxyhemoglobin Carboxyhemoglobin Sodium 146 H Potassium Chloride 115.0 H Carbon Dioxide 17 L BUN 29 H Glucose 72 L POC Glucose 116 H 63 L Lactic Acid Calcium 7.9 L Ferritin AST 118 H ALT Alkaline Phosphatase 273 H Lactate Dehydrogenase Total Creatine Kinase CK-MB (CK-2) Rel Index Troponin T C-Reactive Protein Total Protein 5.3 L D Albumin 2.0 L LDL Cholesterol Direct HDL Cholesterol Arterial Blood Glucose Urine WBC (Auto) Vancomycin Trough Crossmatch 02/27/20 02/28/20 02/28/20 23:41 04:30 05:30 WBC 12.5 H RBC 2.99 L Hgb 8.0 L Hct 26.6 L MCH 27 L MCHC 30 L RDW 24.8 H Plt Count Lymph % (Auto) 7.5 L Lymph # (Auto) 0.9 L Seg Neutrophils % 86.9 H Seg Neuts % (Manual) Lymphocytes % (Manual) Nucleated RBC % Seg Neutrophils # 10.8 H Seg Neutrophils # Man Lymphocytes # (Manual) PT INR D-Dimer ABG pH 7.240 L POC ABG pCO2 POC ABG pO2 ABG pO2 ABG HCO3 ABG O2 Saturation ABG Base Excess ABG Hemoglobin 9.0 L ABG Oxyhemoglobin ABG Potassium ABG Chloride ABG Glucose Oxyhemoglobin Carboxyhemoglobin Sodium Potassium Chloride Carbon Dioxide BUN Glucose POC Glucose 131 H Lactic Acid Calcium Ferritin AST ALT Alkaline Phosphatase Lactate Dehydrogenase Total Creatine Kinase CK-MB (CK-2) Rel Index Troponin T C-Reactive Protein Total Protein Albumin LDL Cholesterol Direct HDL Cholesterol Arterial Blood Glucose Urine WBC (Auto) Vancomycin Trough Crossmatch 02/28/20 02/28/20 02/28/20 06:00 09:00 17:25 WBC RBC Hgb Hct MCH MCHC RDW Plt Count Lymph % (Auto) Lymph # (Auto) Seg Neutrophils % Seg Neuts % (Manual) Lymphocytes % (Manual) Nucleated RBC % Seg Neutrophils # Seg Neutrophils # Man Lymphocytes # (Manual) PT INR D-Dimer ABG pH POC ABG pCO2 POC ABG pO2 ABG pO2 ABG HCO3 ABG O2 Saturation ABG Base Excess ABG Hemoglobin ABG Oxyhemoglobin ABG Potassium ABG Chloride ABG Glucose Oxyhemoglobin Carboxyhemoglobin Sodium Potassium Chloride Carbon Dioxide BUN Glucose POC Glucose 121 H 61 L Lactic Acid Calcium Ferritin AST ALT Alkaline Phosphatase Lactate Dehydrogenase Total Creatine Kinase CK-MB (CK-2) Rel Index Troponin T C-Reactive Protein Total Protein Albumin LDL Cholesterol Direct HDL Cholesterol Arterial Blood Glucose Urine WBC (Auto) Vancomycin Trough 29.0 H Crossmatch 02/28/20 02/29/20 02/29/20 Unknown 04:32 05:17 WBC RBC Hgb Hct MCH MCHC RDW Plt Count Lymph % (Auto) Lymph # (Auto) Seg Neutrophils % Seg Neuts % (Manual) Lymphocytes % (Manual) Nucleated RBC % Seg Neutrophils # Seg Neutrophils # Man Lymphocytes # (Manual) PT INR D-Dimer ABG pH POC ABG pCO2 22.5 L POC ABG pO2 119.7 H ABG pO2 ABG HCO3 ABG O2 Saturation ABG Base Excess ABG Hemoglobin 10.5 L ABG Oxyhemoglobin ABG Potassium ABG Chloride ABG Glucose Oxyhemoglobin Carboxyhemoglobin 0.3 L Sodium Potassium Chloride 114.7 H Carbon Dioxide 14 L BUN 30 H Glucose POC Glucose Lactic Acid Calcium 7.8 L Ferritin AST 193 H ALT Alkaline Phosphatase 354 H Lactate Dehydrogenase Total Creatine Kinase CK-MB (CK-2) Rel Index Troponin T C-Reactive Protein Total Protein 5.6 L Albumin 2.0 L LDL Cholesterol Direct HDL Cholesterol Arterial Blood Glucose Urine WBC (Auto) Vancomycin Trough Crossmatch 02/29/20 02/29/20 02/29/20 05:29 11:16 11:16 WBC 15.1 H RBC Hgb 10.1 L Hct 32.8 L D MCH 27 L MCHC 31 L RDW 25.2 H Plt Count Lymph % (Auto) Lymph # (Auto) Seg Neutrophils % Seg Neuts % (Manual) 98.0 H Lymphocytes % (Manual) 1.0 L Nucleated RBC % 5.0 H Seg Neutrophils # Seg Neutrophils # Man 14.8 H Lymphocytes # (Manual) 0.2 L PT INR D-Dimer ABG pH POC ABG pCO2 POC ABG pO2 ABG pO2 ABG HCO3 ABG O2 Saturation ABG Base Excess ABG Hemoglobin ABG Oxyhemoglobin ABG Potassium ABG Chloride ABG Glucose Oxyhemoglobin Carboxyhemoglobin Sodium Potassium 3.5 L Chloride 111.7 H Carbon Dioxide 14 L BUN 33 H Glucose 180 H POC Glucose 125 H Lactic Acid Calcium 7.8 L Ferritin AST ALT Alkaline Phosphatase Lactate Dehydrogenase Total Creatine Kinase CK-MB (CK-2) Rel Index Troponin T C-Reactive Protein Total Protein Albumin LDL Cholesterol Direct HDL Cholesterol Arterial Blood Glucose Urine WBC (Auto) Vancomycin Trough Crossmatch 02/29/20 02/29/20 02/29/20 12:55 17:53 23:38 WBC RBC Hgb Hct MCH MCHC RDW Plt Count Lymph % (Auto) Lymph # (Auto) Seg Neutrophils % Seg Neuts % (Manual) Lymphocytes % (Manual) Nucleated RBC % Seg Neutrophils # Seg Neutrophils # Man Lymphocytes # (Manual) PT INR D-Dimer ABG pH POC ABG pCO2 POC ABG pO2 ABG pO2 ABG HCO3 ABG O2 Saturation ABG Base Excess ABG Hemoglobin ABG Oxyhemoglobin ABG Potassium ABG Chloride ABG Glucose Oxyhemoglobin Carboxyhemoglobin Sodium Potassium Chloride Carbon Dioxide BUN Glucose POC Glucose 134 H 145 H 127 H Lactic Acid Calcium Ferritin AST ALT Alkaline Phosphatase Lactate Dehydrogenase Total Creatine Kinase CK-MB (CK-2) Rel Index Troponin T C-Reactive Protein Total Protein Albumin LDL Cholesterol Direct HDL Cholesterol Arterial Blood Glucose Urine WBC (Auto) Vancomycin Trough Crossmatch 03/01/20 03/01/20 03/01/20 03:46 05:44 07:55 WBC 14.0 H RBC Hgb 10.0 L Hct 32.3 L MCH 27 L MCHC 31 L RDW 25.4 H Plt Count 99 L Lymph % (Auto) Lymph # (Auto) Seg Neutrophils % Seg Neuts % (Manual) Lymphocytes % (Manual) Nucleated RBC % Seg Neutrophils # Seg Neutrophils # Man Lymphocytes # (Manual) PT INR D-Dimer ABG pH 7.288 L POC ABG pCO2 POC ABG pO2 ABG pO2 ABG HCO3 11.7 L ABG O2 Saturation ABG Base Excess -13.3 L ABG Hemoglobin ABG Oxyhemoglobin ABG Potassium ABG Chloride ABG Glucose Oxyhemoglobin Carboxyhemoglobin Sodium Potassium Chloride Carbon Dioxide BUN Glucose POC Glucose 177 H Lactic Acid Calcium Ferritin AST ALT Alkaline Phosphatase Lactate Dehydrogenase Total Creatine Kinase CK-MB (CK-2) Rel Index Troponin T C-Reactive Protein Total Protein Albumin LDL Cholesterol Direct HDL Cholesterol Arterial Blood Glucose Urine WBC (Auto) Vancomycin Trough Crossmatch 03/01/20 03/01/20 03/01/20 07:55 12:14 18:07 WBC RBC Hgb Hct MCH MCHC RDW Plt Count Lymph % (Auto) Lymph # (Auto) Seg Neutrophils % Seg Neuts % (Manual) Lymphocytes % (Manual) Nucleated RBC % Seg Neutrophils # Seg Neutrophils # Man Lymphocytes # (Manual) PT INR D-Dimer ABG pH POC ABG pCO2 POC ABG pO2 ABG pO2 ABG HCO3 ABG O2 Saturation ABG Base Excess ABG Hemoglobin ABG Oxyhemoglobin ABG Potassium ABG Chloride ABG Glucose Oxyhemoglobin Carboxyhemoglobin Sodium Potassium Chloride 111.5 H Carbon Dioxide 16 L BUN 36 H Glucose 157 H POC Glucose 163 H 109 H Lactic Acid Calcium 7.9 L Ferritin AST ALT Alkaline Phosphatase Lactate Dehydrogenase Total Creatine Kinase CK-MB (CK-2) Rel Index Troponin T C-Reactive Protein Total Protein Albumin LDL Cholesterol Direct HDL Cholesterol Arterial Blood Glucose Urine WBC (Auto) Vancomycin Trough Crossmatch 03/01/20 03/02/20 03/02/20 23:55 05:42 12:02 WBC RBC Hgb Hct MCH MCHC RDW Plt Count Lymph % (Auto) Lymph # (Auto) Seg Neutrophils % Seg Neuts % (Manual) Lymphocytes % (Manual) Nucleated RBC % Seg Neutrophils # Seg Neutrophils # Man Lymphocytes # (Manual) PT INR D-Dimer ABG pH POC ABG pCO2 POC ABG pO2 ABG pO2 ABG HCO3 ABG O2 Saturation ABG Base Excess ABG Hemoglobin ABG Oxyhemoglobin ABG Potassium ABG Chloride ABG Glucose Oxyhemoglobin Carboxyhemoglobin Sodium Potassium Chloride Carbon Dioxide BUN Glucose POC Glucose 132 H 146 H 147 H Lactic Acid Calcium Ferritin AST ALT Alkaline Phosphatase Lactate Dehydrogenase Total Creatine Kinase CK-MB (CK-2) Rel Index Troponin T C-Reactive Protein Total Protein Albumin LDL Cholesterol Direct HDL Cholesterol Arterial Blood Glucose Urine WBC (Auto) Vancomycin Trough Crossmatch 03/02/20 03/03/20 03/03/20 17:59 00:28 04:52 WBC 13.3 H RBC Hgb 9.9 L Hct 32.2 L MCH 27 L MCHC 31 L RDW 25.8 H Plt Count 67 L Lymph % (Auto) Lymph # (Auto) Seg Neutrophils % Seg Neuts % (Manual) Lymphocytes % (Manual) Nucleated RBC % Seg Neutrophils # Seg Neutrophils # Man Lymphocytes # (Manual) PT INR D-Dimer ABG pH POC ABG pCO2 POC ABG pO2 ABG pO2 ABG HCO3 ABG O2 Saturation ABG Base Excess ABG Hemoglobin ABG Oxyhemoglobin ABG Potassium ABG Chloride ABG Glucose Oxyhemoglobin Carboxyhemoglobin Sodium Potassium Chloride Carbon Dioxide BUN Glucose POC Glucose 113 H 114 H Lactic Acid Calcium Ferritin AST ALT Alkaline Phosphatase Lactate Dehydrogenase Total Creatine Kinase CK-MB (CK-2) Rel Index Troponin T C-Reactive Protein Total Protein Albumin LDL Cholesterol Direct HDL Cholesterol Arterial Blood Glucose Urine WBC (Auto) Vancomycin Trough Crossmatch 03/03/20 03/03/20 03/04/20 04:52 18:08 00:27 WBC RBC Hgb Hct MCH MCHC RDW Plt Count Lymph % (Auto) Lymph # (Auto) Seg Neutrophils % Seg Neuts % (Manual) Lymphocytes % (Manual) Nucleated RBC % Seg Neutrophils # Seg Neutrophils # Man Lymphocytes # (Manual) PT INR D-Dimer ABG pH POC ABG pCO2 POC ABG pO2 ABG pO2 ABG HCO3 ABG O2 Saturation ABG Base Excess ABG Hemoglobin ABG Oxyhemoglobin ABG Potassium ABG Chloride ABG Glucose Oxyhemoglobin Carboxyhemoglobin Sodium Potassium Chloride 112.7 H Carbon Dioxide 19 L BUN 35 H Glucose POC Glucose 119 H 120 H Lactic Acid Calcium Ferritin AST ALT Alkaline Phosphatase Lactate Dehydrogenase Total Creatine Kinase CK-MB (CK-2) Rel Index Troponin T C-Reactive Protein Total Protein Albumin LDL Cholesterol Direct HDL Cholesterol Arterial Blood Glucose Urine WBC (Auto) Vancomycin Trough Crossmatch 03/04/20 03/04/20 03/04/20 05:52 12:17 16:45 WBC 17.9 H RBC 3.57 L Hgb 9.6 L Hct 32.8 L MCH 27 L MCHC 29 L RDW 26.4 H Plt Count 136 L D Lymph % (Auto) Lymph # (Auto) Seg Neutrophils % Seg Neuts % (Manual) 91.0 H Lymphocytes % (Manual) 6.0 L Nucleated RBC % 2.0 H Seg Neutrophils # Seg Neutrophils # Man 16.3 H Lymphocytes # (Manual) 1.1 L PT INR D-Dimer ABG pH POC ABG pCO2 POC ABG pO2 ABG pO2 ABG HCO3 ABG O2 Saturation ABG Base Excess ABG Hemoglobin ABG Oxyhemoglobin ABG Potassium ABG Chloride ABG Glucose Oxyhemoglobin Carboxyhemoglobin Sodium Potassium Chloride Carbon Dioxide BUN Glucose POC Glucose 166 H 187 H Lactic Acid Calcium Ferritin AST ALT Alkaline Phosphatase Lactate Dehydrogenase Total Creatine Kinase CK-MB (CK-2) Rel Index Troponin T C-Reactive Protein Total Protein Albumin LDL Cholesterol Direct HDL Cholesterol Arterial Blood Glucose Urine WBC (Auto) Vancomycin Trough Crossmatch 03/04/20 03/04/20 03/04/20 16:45 18:29 22:44 WBC RBC Hgb Hct MCH MCHC RDW Plt Count Lymph % (Auto) Lymph # (Auto) Seg Neutrophils % Seg Neuts % (Manual) Lymphocytes % (Manual) Nucleated RBC % Seg Neutrophils # Seg Neutrophils # Man Lymphocytes # (Manual) PT INR D-Dimer ABG pH POC ABG pCO2 POC ABG pO2 ABG pO2 ABG HCO3 ABG O2 Saturation ABG Base Excess ABG Hemoglobin ABG Oxyhemoglobin ABG Potassium ABG Chloride ABG Glucose Oxyhemoglobin Carboxyhemoglobin Sodium 146 H Potassium Chloride 115.6 H Carbon Dioxide 21 L BUN 39 H Glucose 137 H POC Glucose 147 H 188 H Lactic Acid Calcium Ferritin AST ALT Alkaline Phosphatase 219 H Lactate Dehydrogenase Total Creatine Kinase CK-MB (CK-2) Rel Index Troponin T C-Reactive Protein Total Protein 5.7 L Albumin 1.9 L LDL Cholesterol Direct HDL Cholesterol Arterial Blood Glucose Urine WBC (Auto) Vancomycin Trough Crossmatch 03/05/20 03/05/20 03/05/20 01:05 04:20 04:56 WBC 20.9 H RBC 3.41 L Hgb 9.3 L Hct 30.5 L MCH 27 L MCHC 30 L RDW 26.0 H Plt Count 130 L Lymph % (Auto) Lymph # (Auto) Seg Neutrophils % Seg Neuts % (Manual) Lymphocytes % (Manual) Nucleated RBC % Seg Neutrophils # Seg Neutrophils # Man Lymphocytes # (Manual) PT INR D-Dimer ABG pH 7.225 L 7.280 L POC ABG pCO2 POC ABG pO2 ABG pO2 178.8 H ABG HCO3 19.8 L ABG O2 Saturation ABG Base Excess -7.3 L -6.3 L ABG Hemoglobin 10.0 L 5.0 L ABG Oxyhemoglobin ABG Potassium ABG Chloride ABG Glucose Oxyhemoglobin Carboxyhemoglobin Sodium Potassium Chloride Carbon Dioxide BUN Glucose POC Glucose Lactic Acid Calcium Ferritin AST ALT Alkaline Phosphatase Lactate Dehydrogenase Total Creatine Kinase CK-MB (CK-2) Rel Index Troponin T C-Reactive Protein Total Protein Albumin LDL Cholesterol Direct HDL Cholesterol Arterial Blood Glucose Urine WBC (Auto) Vancomycin Trough Crossmatch 03/05/20 03/05/20 03/05/20 04:56 05:29 11:27 WBC RBC Hgb Hct MCH MCHC RDW Plt Count Lymph % (Auto) Lymph # (Auto) Seg Neutrophils % Seg Neuts % (Manual) Lymphocytes % (Manual) Nucleated RBC % Seg Neutrophils # Seg Neutrophils # Man Lymphocytes # (Manual) PT INR D-Dimer ABG pH POC ABG pCO2 POC ABG pO2 ABG pO2 ABG HCO3 ABG O2 Saturation ABG Base Excess ABG Hemoglobin ABG Oxyhemoglobin ABG Potassium ABG Chloride ABG Glucose Oxyhemoglobin Carboxyhemoglobin Sodium 149 H Potassium Chloride 116.7 H Carbon Dioxide 19 L BUN 43 H Glucose 156 H POC Glucose 169 H 159 H Lactic Acid Calcium Ferritin AST ALT Alkaline Phosphatase Lactate Dehydrogenase Total Creatine Kinase CK-MB (CK-2) Rel Index Troponin T C-Reactive Protein Total Protein Albumin LDL Cholesterol Direct HDL Cholesterol Arterial Blood Glucose Urine WBC (Auto) Vancomycin Trough Crossmatch 03/05/20 03/05/20 03/06/20 17:56 23:57 04:00 WBC RBC Hgb Hct MCH MCHC RDW Plt Count Lymph % (Auto) Lymph # (Auto) Seg Neutrophils % Seg Neuts % (Manual) Lymphocytes % (Manual) Nucleated RBC % Seg Neutrophils # Seg Neutrophils # Man Lymphocytes # (Manual) PT INR D-Dimer ABG pH POC ABG pCO2 POC ABG pO2 63.9 L ABG pO2 ABG HCO3 ABG O2 Saturation ABG Base Excess ABG Hemoglobin 9.2 L ABG Oxyhemoglobin 91.6 L ABG Potassium 3.2 L ABG Chloride 117.0 H ABG Glucose 120 H Oxyhemoglobin Carboxyhemoglobin Sodium Potassium Chloride Carbon Dioxide BUN Glucose POC Glucose 154 H 153 H Lactic Acid Calcium Ferritin AST ALT Alkaline Phosphatase Lactate Dehydrogenase Total Creatine Kinase CK-MB (CK-2) Rel Index Troponin T C-Reactive Protein Total Protein Albumin LDL Cholesterol Direct HDL Cholesterol Arterial Blood Glucose 120 H Urine WBC (Auto) Vancomycin Trough Crossmatch 03/06/20 03/06/20 03/06/20 05:44 12:49 14:00 WBC 12.1 H RBC 3.08 L Hgb 8.4 L Hct 27.0 L MCH 27 L MCHC 31 L RDW 25.6 H Plt Count 83 L Lymph % (Auto) Lymph # (Auto) Seg Neutrophils % Seg Neuts % (Manual) 90.0 H Lymphocytes % (Manual) 3.0 L Nucleated RBC % Seg Neutrophils # Seg Neutrophils # Man 10.9 H Lymphocytes # (Manual) 0.4 L PT INR D-Dimer ABG pH POC ABG pCO2 POC ABG pO2 ABG pO2 ABG HCO3 ABG O2 Saturation ABG Base Excess ABG Hemoglobin ABG Oxyhemoglobin ABG Potassium ABG Chloride ABG Glucose Oxyhemoglobin Carboxyhemoglobin Sodium Potassium Chloride Carbon Dioxide BUN Glucose POC Glucose 147 H 128 H Lactic Acid Calcium Ferritin AST ALT Alkaline Phosphatase Lactate Dehydrogenase Total Creatine Kinase CK-MB (CK-2) Rel Index Troponin T C-Reactive Protein Total Protein Albumin LDL Cholesterol Direct HDL Cholesterol Arterial Blood Glucose Urine WBC (Auto) Vancomycin Trough Crossmatch 03/06/20 03/06/20 03/07/20 14:00 18:26 00:17 WBC RBC Hgb Hct MCH MCHC RDW Plt Count Lymph % (Auto) Lymph # (Auto) Seg Neutrophils % Seg Neuts % (Manual) Lymphocytes % (Manual) Nucleated RBC % Seg Neutrophils # Seg Neutrophils # Man Lymphocytes # (Manual) PT INR D-Dimer ABG pH POC ABG pCO2 POC ABG pO2 ABG pO2 ABG HCO3 ABG O2 Saturation ABG Base Excess ABG Hemoglobin ABG Oxyhemoglobin ABG Potassium ABG Chloride ABG Glucose Oxyhemoglobin Carboxyhemoglobin Sodium 147 H Potassium 3.0 L D Chloride 114.6 H Carbon Dioxide BUN 36 H Glucose 133 H POC Glucose 124 H 134 H Lactic Acid Calcium 8.0 L Ferritin AST ALT Alkaline Phosphatase Lactate Dehydrogenase Total Creatine Kinase CK-MB (CK-2) Rel Index Troponin T C-Reactive Protein Total Protein Albumin LDL Cholesterol Direct HDL Cholesterol Arterial Blood Glucose Urine WBC (Auto) Vancomycin Trough Crossmatch 03/07/20 03/07/20 03/07/20 05:13 05:13 05:23 WBC 12.5 H RBC 3.48 L Hgb 9.4 L Hct 30.7 L MCH 27 L MCHC 31 L RDW 26.1 H Plt Count 93 L Lymph % (Auto) Lymph # (Auto) Seg Neutrophils % Seg Neuts % (Manual) Lymphocytes % (Manual) Nucleated RBC % Seg Neutrophils # Seg Neutrophils # Man Lymphocytes # (Manual) PT INR D-Dimer ABG pH POC ABG pCO2 POC ABG pO2 ABG pO2 79.9 L ABG HCO3 ABG O2 Saturation ABG Base Excess ABG Hemoglobin 8.1 L ABG Oxyhemoglobin ABG Potassium ABG Chloride ABG Glucose Oxyhemoglobin 94.4 L Carboxyhemoglobin Sodium 151 H Potassium Chloride 115.5 H Carbon Dioxide BUN 35 H Glucose 134 H POC Glucose Lactic Acid Calcium 8.3 L Ferritin AST ALT Alkaline Phosphatase Lactate Dehydrogenase Total Creatine Kinase CK-MB (CK-2) Rel Index Troponin T C-Reactive Protein Total Protein Albumin LDL Cholesterol Direct HDL Cholesterol Arterial Blood Glucose Urine WBC (Auto) Vancomycin Trough Crossmatch 03/07/20 05:39 WBC RBC Hgb Hct MCH MCHC RDW Plt Count Lymph % (Auto) Lymph # (Auto) Seg Neutrophils % Seg Neuts % (Manual) Lymphocytes % (Manual) Nucleated RBC % Seg Neutrophils # Seg Neutrophils # Man Lymphocytes # (Manual) PT INR D-Dimer ABG pH POC ABG pCO2 POC ABG pO2 ABG pO2 ABG HCO3 ABG O2 Saturation ABG Base Excess ABG Hemoglobin ABG Oxyhemoglobin ABG Potassium ABG Chloride ABG Glucose Oxyhemoglobin Carboxyhemoglobin Sodium Potassium Chloride Carbon Dioxide BUN Glucose POC Glucose 146 H Lactic Acid Calcium Ferritin AST ALT Alkaline Phosphatase Lactate Dehydrogenase Total Creatine Kinase CK-MB (CK-2) Rel Index Troponin T C-Reactive Protein Total Protein Albumin LDL Cholesterol Direct HDL Cholesterol Arterial Blood Glucose Urine WBC (Auto) Vancomycin Trough Crossmatch
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
[2020-03-07] MEDS ORDERED: SIMPLE SYRUP 15 ML FEEDTUBE PRN ×2 (14:18)
[2020-03-07] MEDS ORDERED: SODIUM BICARBONATE 325 MG TAB FEEDTUBE PRN (14:18)
[2020-03-07] MEDS ORDERED: LIPASE 10,500/PROTEASE 25,000/AMYLASE 43,750 (UNITS) DR CAP FEEDTUBE PRN (14:18)
--- NOTE | 2020-03-07 14:32 | Progress Note ---
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 Medications - Current Medications Current Medications: Generic Name Dose Route Start Last Admin Trade Name Freq PRN Reason Stop Dose Admin Acetaminophen 650 mg 02/25/20 04:16 Tylenol PO Q6H PRN Pain MILD(1-3)/Fever >100.5/[place] Albuterol 2.5 mg 03/05/20 08:20 03/05/20 12:27 Proventil IH 2.5 mg Q4HRT PRN Administration Shortness Of Breath Amiodarone HCl 200 mg 03/01/20 12:00 03/07/20 09:13 Cordarone PO 200 mg QDAY AIDEE Administration Lipase/Protease/Amylase 1 each 02/27/20 10:25 Duina Dill 10,500 Unit FEEDTUBE PRN PRN For Clogged Feeding Tube Lipase/Protease/Amylase 1 each 03/07/20 14:18 Dunia Dill 10,500 Unit FEEDTUBE PRN PRN For Clogged Feeding Tube Carvedilol 6.25 mg 03/02/20 22:00 03/07/20 09:13 Coreg PO 6.25 mg BID AIDEE Administration Dextrose 50 ml 02/27/20 07:16 02/27/20 18:18 D50w (25gm) Syringe IV 50 ml PRN PRN Administration Hypoglycemia Protocol Ethambutol HCl 800 mg 02/27/20 12:00 03/07/20 09:13 Myambutol PO 800 mg QDAY AIDEE Administration Famotidine 20 mg 02/28/20 10:00 03/07/20 09:12 Pepcid PO 20 mg BID AIDEE Administration Fentanyl 50 mcg 03/07/20 10:23 Sublimaze IV Q2H PRN Pain , Severe (7-10) Furosemide 40 mg 03/03/20 10:00 03/07/20 09:13 Lasix PO 40 mg QDAY AIDEE Administration Glycopyrrolate 1 mg 03/05/20 10:00 03/07/20 09:12 Robinul PO 1 mg BID AIDEE Administration Haloperidol Lactate 5 mg 03/06/20 16:22 Haldol IV Q6HR PRN Anxiety Hydrophilic Ointment 1 applic 03/05/20 01:44 Vaseline Lip Therapy TP Q2HR PRN Dry Lips Dexmedetomidine HCl 200 mcg/ 50 mls @ 2.268 mls/hr 03/01/20 12:00 03/03/20 11:10 Sodium Chloride IV 0 mcg/kg/hr TITRATE AIDEE 0 mls/hr Titration Protocol 0.2 MCG/KG/HR Norepinephrine 4 mg in 250 mls @ 7.5 mls/hr 03/04/20 03:00 03/05/20 13:00 Levophed Drip 4 Mg/Ns 250 Ml IV 0 mcg/min TITR AIDEE 0 mls/hr Titration Protocol 2 MCG/MIN Fentanyl Citrate 2,000 mcg in 100 mls @ 2.268 mls/hr 03/05/20 02:00 Fentanyl Drip Premix IV TITR AIDEE Protocol 1 MCG/KG/HR Potassium Chloride 20 meq in 100 mls @ 100 mls/hr 03/06/20 19:00 03/06/20 21:47 Kcl 20meq/100ml IV 03/07/20 19:59 100 mls/hr DIRECT AIDEE Administration Ceftriaxone Sodium 1 gm in 50 mls @ 100 mls/hr 03/07/20 14:00 Rocephin/Ns 1 Gm/50 Ml IV 03/09/20 10:29 Q24HR AIDEE Protocol Isoniazid 300 mg 02/27/20 12:00 03/07/20 09:12 Isoniazid PO 300 mg QDAY AIDEE Administration Lisinopril 2.5 mg 03/03/20 10:00 03/07/20 09:14 Zestril PO 2.5 mg QDAY AIDEE Administration Magnesium Hydroxide 30 ml 02/25/20 04:16 Milk Of Magnesia PO Q4H PRN Constipation Methadone HCl 10 mg 03/02/20 14:00 03/07/20 08:01 Dolophine PO Not Given Q8HR AIDEE Multi-Ingred Cream/Lotion/Oil/Oint 1 applic 03/05/20 01:44 Artificial Tears Ophth Oint OU Q4HR PRN Dry Eye(s) Ondansetron HCl 4 mg 02/25/20 04:16 Zofran IV Q8H PRN Nausea And Vomiting Pyrazinamide 1,000 mg 02/29/20 10:00 03/07/20 09:13 Pyrazinamide PO 1,000 mg QDAY AIDEE Administration Pyridoxine HCl 50 mg 02/27/20 12:00 03/07/20 09:13 Vitamin B-6 PO 50 mg QDAY AIDEE Administration Rifampin 600 mg 02/27/20 12:00 03/07/20 09:12 Rifadin PO 600 mg QDAY AIDEE Administration Senna/Docusate Sodium 2 tab 03/02/20 10:00 03/07/20 09:12 Senokot S PO 2 tab BID AIDEE Administration Simple Syrup 15 ml 02/27/20 10:25 Simple Syrup FEEDTUBE PRN PRN Hypoglycemia Simple Syrup 30 ml 02/27/20 10:25 Simple Syrup FEEDTUBE PRN PRN Hypoglycemia Simple Syrup 15 ml 03/07/20 14:18 Simple Syrup FEEDTUBE PRN PRN Hypoglycemia Simple Syrup 30 ml 03/07/20 14:18 Simple Syrup FEEDTUBE PRN PRN Hypoglycemia Sodium Bicarbonate 325 mg 02/27/20 10:25 Sodium Bicarbonate FEEDTUBE PRN PRN For Clogged Feeding Tube Sodium Bicarbonate 325 mg 03/07/20 14:18 Sodium Bicarbonate FEEDTUBE PRN PRN For Clogged Feeding Tube Sodium Chloride 10 ml 02/25/20 10:00 03/07/20 09:14 Sodium Chloride Flush Syringe 10 Ml IV 10 ml BID AIDEE Administration Sodium Chloride 10 ml 02/25/20 04:16 Sodium Chloride Flush Syringe 10 Ml IV PRN PRN LINE FLUSH Spironolactone 25 mg 03/03/20 10:00 03/07/20 09:13 Aldactone PO 25 mg QDAY AIDEE Administration Nutrition/Malnutrition Assess - Dietary Evaluation Nutrition/Malnutrition Findings: Nutrition Notes Start: 02/25/20 10:14 Freq: Status: Active Protocol: Document 03/07/20 13:09 DAYANARA (Rec: 03/07/20 13:51 DAYANARA [id number]) Co-Sign 03/07/20 13:09 SHUBHAM Nutrition Notes Initial or Follow up Reassessment Current Diagnosis Decubitus(Pressure Ulcer), Sepsis,Respiratory Failure Other Pertinent Diagnosis Pneu, UTI, anemia, paraplegia, buttocks PU,Pulmonary TB Current Diet Osmolite 1.5 at 50ml/hr Labs/Tests Na 151 BUN 35 BG 134 Pertinent Medications Vitamin B6 Lasix Height 5 ft 9 in Weight 45.359 kg [place] Body Weight (kg) 72.72 BMI 14.8 Weight Status Underweight Subjective/Other Information F/U for NG replacement and stable TF. TF running at goal rate and pt tolerating. Pt reintubated due to cardiac arrest event. Percent of energy/protein needs met: 94%/100% Burn Absent Trauma Absent Current % PO Negligible Minimum of two criteria Yes Muscle Mass Mild Depletion (non-severe) Fluid Accumulation Moderate to Severe (severe) Reduced Inside Meter Tester Strength Measurably Reduced (severe) #3 Nutrition Diagnosis Increased nutrient needs ( specify in comment below) Diagnosis Progress(for reassessment Continues documentation) #2 Nutrition Diagnosis Inadequate oral intake Etiology NG tube placed, TF restarted As Evidenced by Signs and Symptoms Pt tolerating TF at goal rate Diagnosis Progress(for reassessment Continues documentation) #1 Nutrition Diagnosis Malnutrition Diagnosis Progress(for reassessment Continues documentation) Is patient on ventilator? Yes Is Patient Ambulatory and/or Out of Bed No REE-([facility]-confined to bed) 1592.628 Kcal/Kg value to use for calculation 42 Approximate Energy Requirements Using 1905 kcal/Kg Calculation Used for Recommendations Kcal/kg Additional Notes Protein: 54-91g (1.2-2g/kg) Fluid: 1ml/kcal Nutrition Intervention Change Diet Order: Continue TF Nutrition Support: Osmolite 1.5 at 50ml/hr. Flush 250ml q4h for hypernatremia. Flush 150ml q4h once hypernatremia resolved. Kcal 1,800 Protein (gm) 75 Fluid (mL) 914 Goal #1 TF tolerance Goal #2 Meet at least 100% of energy and protein needs via TF. Goal #3 Wound healing Goal #4 Wt maintenance or wt gain Anticipated Discharge Needs: Unable to determine at this time Follow-Up By: 03/14/20 Additional Comments F/U for stable TF, hypernatremia, plan of care
[2020-03-07] MEDS: cefTRIAXone/NS 1 GM/50 ML 1 GM/50 ML BAG IV SCH (15:53)
--- NOTE | 2020-03-07 17:31 | Cat Scan Report ---
CT chest w con, CT abdomen pelvis w con INDICATION / CLINICAL INFORMATION: METASTATIC LESION. TECHNIQUE: Axial CT imaging of chest, abdomen and pelvis was obtained with IV contrast. Coronal and sagittal ref ormatted imaging obtained and reviewed. All CT scans at this location are performed using CT dose re duction for ALARA by means of automated exposure control. COMPARISON: None available. FINDINGS: CT chest with contrast does not demonstrate any mediastinal or hilar adenopathy or mass. The aorta is unremarkable. Heart size is normal. No significant pericardial effusion. There is significant emphysematous change bilaterally. Bronchiectasis is noted bilaterally especially within the left upper lobe. There is superimposed pulmonary opacities throughout both lungs most not ably in the right upper lobe, superior segment right lower lobe, left lower lobe. Small right pleural effusion is present. Endotracheal tube is present and appears to be in grossly satisfactory position. CT abdomen with contrast demonstrates normal appearance of the liver, spleen, pancreas, right kidney. The adrenal glands are normal. There is a 5.7 cm well marginated round mass arising from the posteri or aspect of the left kidney. The mass contains vessels as well as fat and is therefore a benign gilberto omyolipoma. The left kidney is otherwise unremarkable. Large amount of intramural thrombus is seen throughout the abdominal aorta. No evidence of aortic ane urysm. CT pelvis with contrast demonstrates small fecal impaction. Moderate amount retained stool is present throughout the colon. The remainder of the GI tract is grossly unremarkable. Catheter is present wit hin the urinary bladder. There is gas within the superficial soft tissues of the left inferior perineal area which I suspect i s related to decubitus ulcer. Gas is abutting the left inferior pubis ramus. There is nondisplaced fr acture of the left ischium. The appearance is most suggestive of acute or possibly subacute fracture. Additionally there are sclerotic areas scattered throughout the thoracic and lumbar spine that are ve ry suggestive for osseous metastases. IMPRESSION: 1. CT chest continues to demonstrate bilateral parenchymal disease most likely pneumonia. There is un derlying bronchiectasis, as well as small right pleural effusion. It would be difficult to exclude a malignant process within the lung given the degree of pulmonary disease present at this time. 2. Scattered blastic skeletal lesions most consistent with osseous metastases. The site of primary tu mor is not identified. 3. 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 4. nondisplaced fracture of the left ischial spine. Additionally there is gas within the soft tissues of the left side of the perineum possibly representing decubitus ulcer. Please correlate with physic al exam. 5. Small fecal impaction. 6. Large amount of intramural thrombus present within the abdominal aorta, especially given the patie nt's age. Signer Name: Linda Potter MD Signed: 03/07/2020 5:26 PM Workstation Name: [id number]
--- NOTE | 2020-03-08 03:24 | XRay Report ---
ABDOMEN SUPINE INDICATION / CLINICAL INFORMATION: dobhoff tube placement. COMPARISON: None available. FINDINGS: Dobbhoff tube is in the proximal stomach. Signer Name: Randal Powell MD Signed: 03/08/2020 3:20 AM Workstation Name: [id number]
--- NOTE | 2020-03-08 03:24 | XRay Report ---
CHEST 1 VIEW INDICATION: follow up respiratory failure COMPARISON: One day prior. FINDINGS: Support devices: Unchanged. Heart: Stable. Lungs/Pleura: Extensive bilateral pleural-parenchymal disease, unchanged. No new disease. IMPRESSION: 1. No significant change. Signer Name: Randal Powell MD Signed: 03/08/2020 3:19 AM Workstation Name: [id number]
[2020-03-08] MEDS: METHADONE 10 MG TAB PO SCH ×3 (05:51→22:08)
[2020-03-08] MEDS: MEROPENEM/NS 1 GRAM/100 ML 1 GRAM/100 ML BAG IV SCH (07:19)
[2020-03-08] MEDS: LISINOPRIL 5 MG TAB PO SCH (09:27)
[2020-03-08] MEDS: PYRAZINAMIDE 500 MG TAB PO SCH (09:27)
[2020-03-08] MEDS: ISONIAZID 300 MG TAB PO SCH (09:27)
[2020-03-08] MEDS: GLYCOPYRROLATE 1 MG TAB PO SCH ×2 (09:27→22:08)
[2020-03-08] MEDS: cefTRIAXone/NS 1 GM/50 ML 1 GM/50 ML BAG IV SCH (09:27)
[2020-03-08] MEDS: FAMOTIDINE 20 MG TAB PO SCH ×2 (09:27→22:08)
[2020-03-08] MEDS: rifAMPin 300 MG CAP PO SCH (09:27)
[2020-03-08] MEDS: carvediloL 6.25 MG TAB PO SCH ×2 (09:28→22:08)
[2020-03-08] MEDS: SPIRONOLACTONE 25 MG TAB PO SCH (09:28)
[2020-03-08] MEDS: AMIODARONE 200 MG TAB PO SCH (09:29)
[2020-03-08] MEDS: PYRIDOXINE 50 MG TAB PO SCH (09:29)
[2020-03-08] MEDS: ETHAMBUTOL 400 MG TAB PO SCH (09:29)
[2020-03-08] MEDS: SENNOSIDES/DOCUSATE SODIUM 8.6/50 MG TAB PO SCH ×2 (09:29→22:08)
[2020-03-08] MEDS: FUROSEMIDE 40 MG TAB PO SCH (09:29)
--- NOTE | 2020-03-08 12:07 | Progress Note ---
<DIANA HILL - Last Filed: 03/08/20 12:04> Assessment and Plan S/P PEA arrest 03/04 Acute respiratory failure Bilateral pneumonia Dilated cardiomyopathy, uncertain chronicity LVEF 15 to 20% by echo this presentation Reports of Transient VF following multiple rounds of epi during code BLUE on 02/24 no strips available for review currently in sinus rhythm on amiodarone for suppression. 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 Continue guideline directed optimal medical therapy for dilated cardiomyopathy. Due to multiple severe co-morbidities will pursue conservative cardiac management. Subjective Date of service: 03/08/20 Principal diagnosis: Acute respiratory failure Interval history: No cardiac event reported overnight. Remains intubated on the vent. Objective Vital Signs Temp Pulse Pulse Resp BP Pulse Ox 03/08/20 11:00 75 25 H 102/70 99 03/08/20 10:57 75 99 03/08/20 10:30 76 25 H 106/70 99 03/08/20 10:00 86 26 H 116/79 97 03/08/20 09:49 37 H 03/08/20 09:30 87 30 H 114/79 99 03/08/20 09:28 92 H 158/67 03/08/20 09:27 72 158/67 03/08/20 09:03 30 H 99 03/08/20 09:00 88 19 108/76 100 03/08/20 08:56 91 H 108/76 100 03/08/20 08:30 87 27 H 120/83 99 03/08/20 08:00 97.8 F 91 H 29 H 125/90 99 03/08/20 07:30 89 27 H 132/89 98 03/08/20 07:00 91 H 28 H 135/96 99 03/08/20 06:30 90 29 H 132/93 100 03/08/20 06:00 88 31 H 124/91 91 03/08/20 05:31 92 H 31 H 113/95 03/08/20 05:01 90 30 H 113/95 98 03/08/20 04:59 91 H 95 03/08/20 04:31 89 25 H 113/95 100 03/08/20 04:01 87 30 H 113/95 100 03/08/20 04:00 98.0 F 100 03/08/20 03:30 86 19 129/99 100 03/08/20 03:00 89 23 142/118 100 03/08/20 02:31 89 11 L 130/96 100 03/08/20 02:00 78 27 H 125/95 98 03/08/20 01:30 81 29 H 140/83 97 03/08/20 01:01 82 12 129/86 98 03/08/20 00:30 75 27 H 127/92 97 03/08/20 00:00 97.8 F 75 22 130/97 100 03/07/20 23:56 72 116/85 96 03/07/20 23:31 73 25 H 133/98 98 03/07/20 23:30 76 25 H 133/98 97 03/07/20 23:00 77 24 132/99 99 03/07/20 22:30 75 25 H 129/87 97 03/07/20 22:00 87 28 H 139/105 99 03/07/20 21:30 83 29 H 139/101 99 03/07/20 21:00 85 28 H 141/104 98 03/07/20 20:57 83 138/101 98 03/07/20 20:30 85 27 H 138/100 99 03/07/20 20:15 100 03/07/20 20:00 97.5 F L 87 31 H 141/104 99 03/07/20 19:30 86 29 H 134/96 99 03/07/20 19:00 85 29 H 135/96 98 03/07/20 18:00 87 26 H 137/95 98 03/07/20 17:45 90 31 H 130/91 98 03/07/20 17:30 85 27 H 121/85 98 03/07/20 17:15 88 28 H 118/82 100 03/07/20 17:00 87 27 H 135/99 99 03/07/20 16:45 87 28 H 140/100 99 03/07/20 16:30 88 29 H 133/96 98 03/07/20 16:15 91 H 32 H 133/91 97 03/07/20 16:00 97.7 F 96 H 92 H 29 H 128/85 96 03/07/20 15:45 93 H 32 H 113/78 96 03/07/20 15:32 97 H 34 H 106/82 03/07/20 14:45 95 H 25 H 106/82 97 03/07/20 14:30 91 H 29 H 113/81 97 03/07/20 14:15 88 30 H 115/77 96 03/07/20 14:00 90 29 H 116/72 96 03/07/20 13:45 88 28 H 111/75 97 03/07/20 13:30 91 H 29 H 112/77 97 03/07/20 13:15 90 32 H 112/76 97 03/07/20 13:00 93 H 33 H 115/80 98 03/07/20 12:45 93 H 34 H 124/83 98 03/07/20 12:30 97 H 26 H 122/89 99 03/07/20 12:15 96 H 34 H 118/84 99 - Physical Examination General: Other (intubated on the vent) HEENT: Positive: PERRL Cardiac: Positive: Reg Rate and Rhythm <EDSON WATERS Last Filed: 03/09/20 21:02> Assessment and Plan - Patient Problems (1) Anemia Current Visit: Yes Status: Acute Qualifiers: Anemia type: unspecified type Qualified Code(s): D64.9 - Anemia, unspecified (2) Atrial fibrillation Current Visit: Yes Status: Acute (3) Cardiorespiratory arrest Current Visit: Yes Status: Acute (4) Dilated cardiomyopathy Current Visit: Yes Status: Acute (5) Paraplegia Current Visit: Yes Status: Acute (6) Pneumonia Current Visit: Yes Status: Acute Qualifiers: Pneumonia type: due to unspecified organism Laterality: bilateral Lung location: unspecified part of lung Qualified Code(s): J18.9 - Pneumonia, unspecified organism Subjective Interval history: I SAW THIS PT & AGREE WITH THE Dx & Tx PLAN Objective Vital Signs Temp Pulse Pulse Resp BP Pulse Ox 03/09/20 20:00 81 133/94 100 03/09/20 19:47 97.8 F 03/09/20 18:00 77 21 134/95 100 03/09/20 17:30 77 19 132/95 100 03/09/20 17:00 70 16 123/88 99 03/09/20 16:30 77 19 120/85 99 03/09/20 16:00 84 70 20 120/84 98 03/09/20 15:59 98.1 F 03/09/20 15:50 71 118/81 99 03/09/20 15:30 72 17 115/82 99 03/09/20 15:00 83 18 125/88 100 03/09/20 14:30 80 23 109/81 98 03/09/20 14:00 69 17 111/79 99 03/09/20 13:30 80 13 115/81 100 03/09/20 13:00 71 15 82/58 99 03/09/20 12:30 71 18 93/58 99 03/09/20 12:24 78 28 H 111/78 97 03/09/20 12:00 98.3 F 82 68 20 98 03/09/20 11:30 77 27 H 120/85 97 03/09/20 11:24 74 117/85 99 03/09/20 11:00 77 23 125/86 99 03/09/20 10:30 70 23 120/84 100 03/09/20 10:00 74 21 120/83 100 03/09/20 09:49 78 130/88 03/09/20 09:30 78 23 124/87 100 03/09/20 09:27 77 22 130/91 100 03/09/20 09:00 71 20 114/82 98 03/09/20 08:30 73 20 119/85 100 03/09/20 08:00 98.5 F 77 22 118/81 100 03/09/20 07:48 73 20 98 03/09/20 07:30 75 18 118/76 100 03/09/20 07:00 78 22 119/83 100 03/09/20 06:30 78 21 121/87 100 03/09/20 06:00 80 24 130/90 100 03/09/20 05:30 68 20 121/82 98 03/09/20 05:00 69 21 119/82 99 03/09/20 04:31 71 23 99/71 99 03/09/20 04:00 77 74 16 95/66 98 03/09/20 03:42 100.6 F H 03/09/20 03:32 79 104/67 100 03/09/20 03:30 81 25 H 104/67 99 03/09/20 03:00 85 18 100/75 98 03/09/20 02:30 73 22 115/77 99 10/08/20 02:00 72 24 112/75 99 03/09/20 01:30 71 23 111/71 98 03/09/20 01:00 74 23 110/73 98 03/09/20 00:30 73 22 110/74 98 03/09/20 00:00 98.4 F 84 72 21 100/75 100 03/08/20 23:30 78 22 113/76 97 03/08/20 23:00 79 22 120/80 97 03/08/20 22:31 82 25 H 125/83 98 03/08/20 22:30 80 24 125/83 98 03/08/20 22:08 84 131/86 03/08/20 22:00 83 27 H 131/86 99 03/08/20 21:30 80 26 H 129/87 99 - Labs and Meds Cardiac Enzymes 03/09/20 Range/Units 00:11 AST 25 (5-40) units/L CBC 03/09/20 Range/Units 00:11 WBC 10.4 (4.5-11.0) K/mm3 RBC 3.17 L (3.65-5.03) M/mm3 Hgb 8.9 L (11.8-15.2) gm/dl Hct 27.6 L (35.5-45.6) % Plt Count 118 L (140-440) K/mm3 Comprehensive Metabolic Panel 03/09/20 Range/Units 00:11 Sodium 151 H (137-145) mmol/L Potassium 3.4 L (3.6-5.0) mmol/L Chloride 111.6 H (98-107) mmol/L Carbon Dioxide 30 (22-30) mmol/L BUN 34 H (9-20) mg/dL Creatinine 0.8 (0.8-1.3) mg/dL Glucose 96 (75-100) mg/dL Calcium 8.3 L (8.4-10.2) mg/dL AST 25 (5-40) units/L ALT 13 (7-56) units/L Alkaline Phosphatase 156 H (35-129) units/L Total Protein 5.7 L (6.3-8.2) g/dL Albumin 1.8 L (3.9-5) g/dL
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
--- NOTE | 2020-03-08 13:20 | Progress Note ---
Assessment and Plan 44 y/o male admitted with hypoxemia, fever and brody catheter pain, subsequent cardiac arrest in the ED, resuscitated and intubated, now with hypotension, anion gap metabolic acidosis, acute respiratory failure, hypoglycemia and vtach/vfib, found to have severe left sided heart disease, now with cardiac arrest and re-intubation but awakens off sedation and follows commands. 1. Pulm-Down to 30%,minimal PEEP. Will attempt daily PSV trials. Ultimately may require trach given degree of heart failure. 2. CV-severe systolic heart failure. Cards following. They have added medications to the regimen. No invasive measures per them. 3. Heme-Anemia. Etiology unknown. Could be from chronic disease. HIT negative. No labs checked today. 4. Renal- Function is normal. Dietary to increase free water. No labs checked today. 5. Endo-restarted feeds via NG/Dobb laquita tube, dietary to increase free water. 6. 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 Abx therapy stopped. 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 ID follows. patient need biopsy of blastic lesions since rads feels that renal lesion is benign. Very very guarded prognosis, especially if malignancy is present. CCT 31 minutes. Subjective Date of service: 03/08/20 Principal diagnosis: Acute respiratory failure Interval history: No masses seen in Chest. Per rads the feel that renal lesion is benign but there a several blastic lesions seen throughout. Remains on the vent. Down to 30% and remainder is negative. Objective Vital Signs - 12hr 03/08/20 03/08/20 03/08/20 01:30 02:00 02:31 Temperature Pulse Rate 81 78 89 Pulse Rate [ From Monitor] Respiratory 29 H 27 H 11 L Rate Blood Pressure 140/83 125/95 130/96 O2 Sat by Pulse 97 98 100 Oximetry 03/08/20 03/08/20 03/08/20 03:00 03:30 04:00 Temperature 98.0 F Pulse Rate 89 86 Pulse Rate [ From Monitor] Respiratory 23 19 Rate Blood Pressure 142/118 129/99 O2 Sat by Pulse 100 100 100 Oximetry 03/08/20 03/08/20 03/08/20 04:01 04:31 04:59 Temperature Pulse Rate 87 89 91 H Pulse Rate [ From Monitor] Respiratory 30 H 25 H Rate Blood Pressure 113/95 113/95 O2 Sat by Pulse 100 100 95 Oximetry 03/08/20 03/08/20 03/08/20 05:01 05:31 06:00 Temperature Pulse Rate 90 92 H 88 Pulse Rate [ From Monitor] Respiratory 30 H 31 H 31 H Rate Blood Pressure 113/95 113/95 124/91 O2 Sat by Pulse 98 91 Oximetry 03/08/20 03/08/20 03/08/20 06:30 07:00 07:30 Temperature Pulse Rate 90 91 H 89 Pulse Rate [ From Monitor] Respiratory 29 H 28 H 27 H Rate Blood Pressure 132/93 135/96 132/89 O2 Sat by Pulse 100 99 98 Oximetry 03/08/20 03/08/20 03/08/20 08:00 08:30 08:56 Temperature 97.8 F Pulse Rate 91 H 87 91 H Pulse Rate [ From Monitor] Respiratory 29 H 27 H Rate Blood Pressure 125/90 120/83 108/76 O2 Sat by Pulse 99 99 100 Oximetry 03/08/20 03/08/20 03/08/20 09:00 09:03 09:27 Temperature Pulse Rate 88 72 Pulse Rate [ From Monitor] Respiratory 19 30 H Rate Blood Pressure 108/76 158/67 O2 Sat by Pulse 100 99 Oximetry 03/08/20 03/08/20 03/08/20 09:28 09:30 09:49 Temperature Pulse Rate 92 H 87 Pulse Rate [ From Monitor] Respiratory 30 H 37 H Rate Blood Pressure 158/67 114/79 O2 Sat by Pulse 99 Oximetry 03/08/20 03/08/20 03/08/20 10:00 10:30 10:57 Temperature Pulse Rate 86 76 Pulse Rate [ 75 From Monitor] Respiratory 26 H 25 H Rate Blood Pressure 116/79 106/70 O2 Sat by Pulse 97 99 99 Oximetry 03/08/20 03/08/20 03/08/20 11:00 11:30 12:00 Temperature Pulse Rate 75 74 74 Pulse Rate [ From Monitor] Respiratory 25 H 26 H 27 H Rate Blood Pressure 102/70 104/70 104/71 O2 Sat by Pulse 99 99 99 Oximetry 03/08/20 12:20 Temperature Pulse Rate 74 Pulse Rate [ From Monitor] Respiratory Rate Blood Pressure 99/68 O2 Sat by Pulse 99 Oximetry Constitutional: agitated, appears uncomfortable, other (on vent, critically ill) Eyes: icteric, injected ENT: other (orally intubated with poor dentition) Neck: supple, no JVD Effort: mildly labored, other (Tachypneic) Ascultation: Right: rhonchi (upper lobe), Bilateral: rales Percussion: Bilateral: not dull Cardiovascular: other (sinus tach) Gastrointestinal: normoactive bowel sounds, soft Extremities: other (per nursing report, decubitus ulcer) Neurologic: unable to assess CBC and BMP: 03/07/20 05:13 03/07/20 05:13 ABG, PT/INR, D-dimer: ABG ABG pH 7.407 (7.320-7.450) 03/08/20 04:03 POC ABG pCO2 43.0 mmHg (32.0-48.0) 03/08/20 04:03 ABG pCO2 39.1 mm Hg 03/07/20 05:23 POC ABG pO2 44.9 mmHg (83-108) L 03/08/20 04:03 ABG pO2 79.9 mm Hg (80.0-90.0) L 03/07/20 05:23 POC ABG HCO3 26.5 03/08/20 04:03 ABG O2 Saturation 97.0 % (95.0-99.0) 03/07/20 05:23 PT/INR, D-dimer PT 17.9 Sec. (12.2-14.9) H 02/26/20 04:00 INR 1.46 (0.87-1.13) H 02/26/20 04:00 D-Dimer 3251.26 ng/mlDDU (0-234) H 02/25/20 03:37 Abnormal lab findings: Abnormal Labs 02/25/20 02/25/20 02/25/20 00:46 00:46 00:46 WBC RBC 3.22 L Hgb 8.9 L Hct 28.5 L MCH MCHC 31 L RDW 24.8 H Plt Count 452 H Lymph % (Auto) 9.1 L Lymph # (Auto) 0.9 L Seg Neutrophils % 86.6 H Seg Neuts % (Manual) Lymphocytes % (Manual) Nucleated RBC % Seg Neutrophils # 8.9 H Seg Neutrophils # Man Lymphocytes # (Manual) PT INR D-Dimer ABG pH POC ABG pCO2 POC ABG pO2 ABG pO2 ABG HCO3 ABG O2 Saturation ABG Base Excess ABG Hemoglobin ABG Oxyhemoglobin ABG Sodium ABG Potassium ABG Chloride ABG Glucose Oxyhemoglobin Carboxyhemoglobin Sodium Potassium Chloride Carbon Dioxide BUN Glucose POC Glucose Lactic Acid 2.10 H* Calcium 8.3 L Ferritin AST ALT < 5 L Alkaline Phosphatase 187 H Lactate Dehydrogenase Total Creatine Kinase 28 L CK-MB (CK-2) Rel Index 8.5 H Troponin T 0.190 H* C-Reactive Protein Total Protein Albumin 2.5 L LDL Cholesterol Direct 45 L HDL Cholesterol 32 L Arterial Blood Glucose Urine WBC (Auto) Vancomycin Trough Crossmatch 02/25/20 02/25/20 02/25/20 02:32 03:37 03:37 WBC RBC Hgb Hct MCH MCHC RDW Plt Count Lymph % (Auto) Lymph # (Auto) Seg Neutrophils % Seg Neuts % (Manual) Lymphocytes % (Manual) Nucleated RBC % Seg Neutrophils # Seg Neutrophils # Man Lymphocytes # (Manual) PT INR D-Dimer 3251.26 H ABG pH POC ABG pCO2 POC ABG pO2 ABG pO2 ABG HCO3 ABG O2 Saturation ABG Base Excess ABG Hemoglobin ABG Oxyhemoglobin ABG Sodium ABG Potassium ABG Chloride ABG Glucose Oxyhemoglobin Carboxyhemoglobin Sodium Potassium Chloride Carbon Dioxide BUN Glucose 144 H POC Glucose Lactic Acid Calcium Ferritin AST ALT Alkaline Phosphatase Lactate Dehydrogenase 234 H Total Creatine Kinase CK-MB (CK-2) Rel Index Troponin T C-Reactive Protein 8.80 H Total Protein Albumin LDL Cholesterol Direct HDL Cholesterol Arterial Blood Glucose Urine WBC (Auto) 68.0 H Vancomycin Trough Crossmatch 02/25/20 02/25/20 02/25/20 03:37 05:36 06:33 WBC RBC Hgb Hct MCH MCHC RDW Plt Count Lymph % (Auto) Lymph # (Auto) Seg Neutrophils % Seg Neuts % (Manual) Lymphocytes % (Manual) Nucleated RBC % Seg Neutrophils # Seg Neutrophils # Man Lymphocytes # (Manual) PT INR D-Dimer ABG pH POC ABG pCO2 POC ABG pO2 ABG pO2 ABG HCO3 ABG O2 Saturation ABG Base Excess ABG Hemoglobin ABG Oxyhemoglobin ABG Sodium ABG Potassium ABG Chloride ABG Glucose Oxyhemoglobin Carboxyhemoglobin Sodium Potassium Chloride Carbon Dioxide BUN Glucose POC Glucose 234 H Lactic Acid Calcium Ferritin 450.5 H AST ALT Alkaline Phosphatase Lactate Dehydrogenase Total Creatine Kinase CK-MB (CK-2) Rel Index Troponin T 0.187 H* C-Reactive Protein Total Protein Albumin LDL Cholesterol Direct HDL Cholesterol Arterial Blood Glucose Urine WBC (Auto) Vancomycin Trough Crossmatch 02/25/20 02/25/20 02/25/20 09:30 13:10 16:27 WBC RBC Hgb Hct MCH MCHC RDW Plt Count Lymph % (Auto) Lymph # (Auto) Seg Neutrophils % Seg Neuts % (Manual) Lymphocytes % (Manual) Nucleated RBC % Seg Neutrophils # Seg Neutrophils # Man Lymphocytes # (Manual) PT INR D-Dimer ABG pH 7.149 L* 7.256 L POC ABG pCO2 POC ABG pO2 ABG pO2 165.3 H 64.5 L ABG HCO3 17.2 L 17.4 L ABG O2 Saturation 85.2 L ABG Base Excess -11.0 L -9.0 L ABG Hemoglobin 7.5 L 8.4 L ABG Oxyhemoglobin ABG Sodium ABG Potassium ABG Chloride ABG Glucose Oxyhemoglobin 83.4 L Carboxyhemoglobin Sodium Potassium Chloride Carbon Dioxide BUN Glucose POC Glucose Lactic Acid 3.20 H* Calcium Ferritin AST ALT Alkaline Phosphatase Lactate Dehydrogenase Total Creatine Kinase CK-MB (CK-2) Rel Index Troponin T C-Reactive Protein Total Protein Albumin LDL Cholesterol Direct HDL Cholesterol Arterial Blood Glucose Urine WBC (Auto) Vancomycin Trough Crossmatch 02/26/20 02/26/20 02/26/20 04:00 04:00 04:00 WBC 20.4 H RBC 2.61 L Hgb 7.0 L Hct 24.5 L MCH 27 L MCHC 29 L RDW 25.1 H Plt Count Lymph % (Auto) Lymph # (Auto) Seg Neutrophils % Seg Neuts % (Manual) 92.0 H Lymphocytes % (Manual) 4.0 L Nucleated RBC % Seg Neutrophils # Seg Neutrophils # Man 18.8 H Lymphocytes # (Manual) 0.8 L PT 17.9 H INR 1.46 H D-Dimer ABG pH POC ABG pCO2 POC ABG pO2 ABG pO2 ABG HCO3 ABG O2 Saturation ABG Base Excess ABG Hemoglobin ABG Oxyhemoglobin ABG Sodium ABG Potassium ABG Chloride ABG Glucose Oxyhemoglobin Carboxyhemoglobin Sodium Potassium Chloride 111.1 H Carbon Dioxide 14 L D BUN 29 H Glucose 57 L POC Glucose Lactic Acid Calcium 7.8 L Ferritin AST ALT Alkaline Phosphatase Lactate Dehydrogenase Total Creatine Kinase CK-MB (CK-2) Rel Index Troponin T C-Reactive Protein Total Protein Albumin LDL Cholesterol Direct HDL Cholesterol Arterial Blood Glucose Urine WBC (Auto) Vancomycin Trough Crossmatch 02/26/20 02/26/20 02/26/20 04:20 07:13 09:20 WBC RBC Hgb Hct MCH MCHC RDW Plt Count Lymph % (Auto) Lymph # (Auto) Seg Neutrophils % Seg Neuts % (Manual) Lymphocytes % (Manual) Nucleated RBC % Seg Neutrophils # Seg Neutrophils # Man Lymphocytes # (Manual) PT INR D-Dimer ABG pH 7.269 L POC ABG pCO2 POC ABG pO2 ABG pO2 236.1 H ABG HCO3 13.9 L ABG O2 Saturation 99.3 H ABG Base Excess -11.9 L ABG Hemoglobin 7.2 L ABG Oxyhemoglobin ABG Sodium ABG Potassium ABG Chloride ABG Glucose Oxyhemoglobin Carboxyhemoglobin Sodium Potassium Chloride Carbon Dioxide BUN Glucose POC Glucose 52 L Lactic Acid Calcium Ferritin AST ALT Alkaline Phosphatase Lactate Dehydrogenase Total Creatine Kinase CK-MB (CK-2) Rel Index Troponin T C-Reactive Protein Total Protein Albumin LDL Cholesterol Direct HDL Cholesterol Arterial Blood Glucose Urine WBC (Auto) Vancomycin Trough Crossmatch See Detail 02/27/20 02/27/20 02/27/20 04:59 05:40 07:30 WBC 16.6 H RBC 3.07 L Hgb 8.4 L Hct 27.4 L MCH MCHC 31 L RDW 24.4 H Plt Count Lymph % (Auto) Lymph # (Auto) Seg Neutrophils % Seg Neuts % (Manual) Lymphocytes % (Manual) Nucleated RBC % Seg Neutrophils # Seg Neutrophils # Man Lymphocytes # (Manual) PT INR D-Dimer ABG pH 7.306 L POC ABG pCO2 POC ABG pO2 ABG pO2 149.6 H ABG HCO3 17.0 L ABG O2 Saturation ABG Base Excess -8.5 L ABG Hemoglobin 7.8 L ABG Oxyhemoglobin ABG Sodium ABG Potassium ABG Chloride ABG Glucose Oxyhemoglobin Carboxyhemoglobin Sodium Potassium Chloride Carbon Dioxide BUN Glucose POC Glucose 64 L Lactic Acid Calcium Ferritin AST ALT Alkaline Phosphatase Lactate Dehydrogenase Total Creatine Kinase CK-MB (CK-2) Rel Index Troponin T C-Reactive Protein Total Protein Albumin LDL Cholesterol Direct HDL Cholesterol Arterial Blood Glucose Urine WBC (Auto) Vancomycin Trough Crossmatch 02/27/20 02/27/2020 07:30 12:07 18:07 WBC RBC Hgb Hct MCH MCHC RDW Plt Count Lymph % (Auto) Lymph # (Auto) Seg Neutrophils % Seg Neuts % (Manual) Lymphocytes % (Manual) Nucleated RBC % Seg Neutrophils # Seg Neutrophils # Man Lymphocytes # (Manual) PT INR D-Dimer ABG pH POC ABG pCO2 POC ABG pO2 ABG pO2 ABG HCO3 ABG O2 Saturation ABG Base Excess ABG Hemoglobin ABG Oxyhemoglobin ABG Sodium ABG Potassium ABG Chloride ABG Glucose Oxyhemoglobin Carboxyhemoglobin Sodium 146 H Potassium Chloride 115.0 H Carbon Dioxide 17 L BUN 29 H Glucose 72 L POC Glucose 116 H 63 L Lactic Acid Calcium 7.9 L Ferritin AST 118 H ALT Alkaline Phosphatase 273 H Lactate Dehydrogenase Total Creatine Kinase CK-MB (CK-2) Rel Index Troponin T C-Reactive Protein Total Protein 5.3 L D Albumin 2.0 L LDL Cholesterol Direct HDL Cholesterol Arterial Blood Glucose Urine WBC (Auto) Vancomycin Trough Crossmatch 02/27/20 02/28/20 02/28/20 23:41 04:30 05:30 WBC 12.5 H RBC 2.99 L Hgb 8.0 L Hct 26.6 L MCH 27 L MCHC 30 L RDW 24.8 H Plt Count Lymph % (Auto) 7.5 L Lymph # (Auto) 0.9 L Seg Neutrophils % 86.9 H Seg Neuts % (Manual) Lymphocytes % (Manual) Nucleated RBC % Seg Neutrophils # 10.8 H Seg Neutrophils # Man Lymphocytes # (Manual) PT INR D-Dimer ABG pH 7.240 L POC ABG pCO2 POC ABG pO2 ABG pO2 ABG HCO3 ABG O2 Saturation ABG Base Excess ABG Hemoglobin 9.0 L ABG Oxyhemoglobin ABG Sodium ABG Potassium ABG Chloride ABG Glucose Oxyhemoglobin Carboxyhemoglobin Sodium Potassium Chloride Carbon Dioxide BUN Glucose POC Glucose 131 H Lactic Acid Calcium Ferritin AST ALT Alkaline Phosphatase Lactate Dehydrogenase Total Creatine Kinase CK-MB (CK-2) Rel Index Troponin T C-Reactive Protein Total Protein Albumin LDL Cholesterol Direct HDL Cholesterol Arterial Blood Glucose Urine WBC (Auto) Vancomycin Trough Crossmatch 02/28/20 02/28/20 02/28/20 06:00 09:00 17:25 WBC RBC Hgb Hct MCH MCHC RDW Plt Count Lymph % (Auto) Lymph # (Auto) Seg Neutrophils % Seg Neuts % (Manual) Lymphocytes % (Manual) Nucleated RBC % Seg Neutrophils # Seg Neutrophils # Man Lymphocytes # (Manual) PT INR D-Dimer ABG pH POC ABG pCO2 POC ABG pO2 ABG pO2 ABG HCO3 ABG O2 Saturation ABG Base Excess ABG Hemoglobin ABG Oxyhemoglobin ABG Sodium ABG Potassium ABG Chloride ABG Glucose Oxyhemoglobin Carboxyhemoglobin Sodium Potassium Chloride Carbon Dioxide BUN Glucose POC Glucose 121 H 61 L Lactic Acid Calcium Ferritin AST ALT Alkaline Phosphatase Lactate Dehydrogenase Total Creatine Kinase CK-MB (CK-2) Rel Index Troponin T C-Reactive Protein Total Protein Albumin LDL Cholesterol Direct HDL Cholesterol Arterial Blood Glucose Urine WBC (Auto) Vancomycin Trough 29.0 H Crossmatch 02/28/20 02/29/20 02/29/20 Unknown 04:32 05:17 WBC RBC Hgb Hct MCH MCHC RDW Plt Count Lymph % (Auto) Lymph # (Auto) Seg Neutrophils % Seg Neuts % (Manual) Lymphocytes % (Manual) Nucleated RBC % Seg Neutrophils # Seg Neutrophils # Man Lymphocytes # (Manual) PT INR D-Dimer ABG pH POC ABG pCO2 22.5 L POC ABG pO2 119.7 H ABG pO2 ABG HCO3 ABG O2 Saturation ABG Base Excess ABG Hemoglobin 10.5 L ABG Oxyhemoglobin ABG Sodium ABG Potassium ABG Chloride ABG Glucose Oxyhemoglobin Carboxyhemoglobin 0.3 L Sodium Potassium Chloride 114.7 H Carbon Dioxide 14 L BUN 30 H Glucose POC Glucose Lactic Acid Calcium 7.8 L Ferritin AST 193 H ALT Alkaline Phosphatase 354 H Lactate Dehydrogenase Total Creatine Kinase CK-MB (CK-2) Rel Index Troponin T C-Reactive Protein Total Protein 5.6 L Albumin 2.0 L LDL Cholesterol Direct HDL Cholesterol Arterial Blood Glucose Urine WBC (Auto) Vancomycin Trough Crossmatch 02/29/20 02/29/20 02/29/20 05:29 11:16 11:16 WBC 15.1 H RBC Hgb 10.1 L Hct 32.8 L D MCH 27 L MCHC 31 L RDW 25.2 H Plt Count Lymph % (Auto) Lymph # (Auto) Seg Neutrophils % Seg Neuts % (Manual) 98.0 H Lymphocytes % (Manual) 1.0 L Nucleated RBC % 5.0 H Seg Neutrophils # Seg Neutrophils # Man 14.8 H Lymphocytes # (Manual) 0.2 L PT INR D-Dimer ABG pH POC ABG pCO2 POC ABG pO2 ABG pO2 ABG HCO3 ABG O2 Saturation ABG Base Excess ABG Hemoglobin ABG Oxyhemoglobin ABG Sodium ABG Potassium ABG Chloride ABG Glucose Oxyhemoglobin Carboxyhemoglobin Sodium Potassium 3.5 L Chloride 111.7 H Carbon Dioxide 14 L BUN 33 H Glucose 180 H POC Glucose 125 H Lactic Acid Calcium 7.8 L Ferritin AST ALT Alkaline Phosphatase Lactate Dehydrogenase Total Creatine Kinase CK-MB (CK-2) Rel Index Troponin T C-Reactive Protein Total Protein Albumin LDL Cholesterol Direct HDL Cholesterol Arterial Blood Glucose Urine WBC (Auto) Vancomycin Trough Crossmatch 02/29/20 02/29/20 02/29/20 12:55 17:53 23:38 WBC RBC Hgb Hct MCH MCHC RDW Plt Count Lymph % (Auto) Lymph # (Auto) Seg Neutrophils % Seg Neuts % (Manual) Lymphocytes % (Manual) Nucleated RBC % Seg Neutrophils # Seg Neutrophils # Man Lymphocytes # (Manual) PT INR D-Dimer ABG pH POC ABG pCO2 POC ABG pO2 ABG pO2 ABG HCO3 ABG O2 Saturation ABG Base Excess ABG Hemoglobin ABG Oxyhemoglobin ABG Sodium ABG Potassium ABG Chloride ABG Glucose Oxyhemoglobin Carboxyhemoglobin Sodium Potassium Chloride Carbon Dioxide BUN Glucose POC Glucose 134 H 145 H 127 H Lactic Acid Calcium Ferritin AST ALT Alkaline Phosphatase Lactate Dehydrogenase Total Creatine Kinase CK-MB (CK-2) Rel Index Troponin T C-Reactive Protein Total Protein Albumin LDL Cholesterol Direct HDL Cholesterol Arterial Blood Glucose Urine WBC (Auto) Vancomycin Trough Crossmatch 03/01/20 03/01/20 03/01/20 03:46 05:44 07:55 WBC 14.0 H RBC Hgb 10.0 L Hct 32.3 L MCH 27 L MCHC 31 L RDW 25.4 H Plt Count 99 L Lymph % (Auto) Lymph # (Auto) Seg Neutrophils % Seg Neuts % (Manual) Lymphocytes % (Manual) Nucleated RBC % Seg Neutrophils # Seg Neutrophils # Man Lymphocytes # (Manual) PT INR D-Dimer ABG pH 7.288 L POC ABG pCO2 POC ABG pO2 ABG pO2 ABG HCO3 11.7 L ABG O2 Saturation ABG Base Excess -13.3 L ABG Hemoglobin ABG Oxyhemoglobin ABG Sodium ABG Potassium ABG Chloride ABG Glucose Oxyhemoglobin Carboxyhemoglobin Sodium Potassium Chloride Carbon Dioxide BUN Glucose POC Glucose 177 H Lactic Acid Calcium Ferritin AST ALT Alkaline Phosphatase Lactate Dehydrogenase Total Creatine Kinase CK-MB (CK-2) Rel Index Troponin T C-Reactive Protein Total Protein Albumin LDL Cholesterol Direct HDL Cholesterol Arterial Blood Glucose Urine WBC (Auto) Vancomycin Trough Crossmatch 03/01/20 03/01/20 03/01/20 07:55 12:14 18:07 WBC RBC Hgb Hct MCH MCHC RDW Plt Count Lymph % (Auto) Lymph # (Auto) Seg Neutrophils % Seg Neuts % (Manual) Lymphocytes % (Manual) Nucleated RBC % Seg Neutrophils # Seg Neutrophils # Man Lymphocytes # (Manual) PT INR D-Dimer ABG pH POC ABG pCO2 POC ABG pO2 ABG pO2 ABG HCO3 ABG O2 Saturation ABG Base Excess ABG Hemoglobin ABG Oxyhemoglobin ABG Sodium ABG Potassium ABG Chloride ABG Glucose Oxyhemoglobin Carboxyhemoglobin Sodium Potassium Chloride 111.5 H Carbon Dioxide 16 L BUN 36 H Glucose 157 H POC Glucose 163 H 109 H Lactic Acid Calcium 7.9 L Ferritin AST ALT Alkaline Phosphatase Lactate Dehydrogenase Total Creatine Kinase CK-MB (CK-2) Rel Index Troponin T C-Reactive Protein Total Protein Albumin LDL Cholesterol Direct HDL Cholesterol Arterial Blood Glucose Urine WBC (Auto) Vancomycin Trough Crossmatch 03/01/20 03/02/20 03/02/20 23:55 05:42 12:02 WBC RBC Hgb Hct MCH MCHC RDW Plt Count Lymph % (Auto) Lymph # (Auto) Seg Neutrophils % Seg Neuts % (Manual) Lymphocytes % (Manual) Nucleated RBC % Seg Neutrophils # Seg Neutrophils # Man Lymphocytes # (Manual) PT INR D-Dimer ABG pH POC ABG pCO2 POC ABG pO2 ABG pO2 ABG HCO3 ABG O2 Saturation ABG Base Excess ABG Hemoglobin ABG Oxyhemoglobin ABG Sodium ABG Potassium ABG Chloride ABG Glucose Oxyhemoglobin Carboxyhemoglobin Sodium Potassium Chloride Carbon Dioxide BUN Glucose POC Glucose 132 H 146 H 147 H Lactic Acid Calcium Ferritin AST ALT Alkaline Phosphatase Lactate Dehydrogenase Total Creatine Kinase CK-MB (CK-2) Rel Index Troponin T C-Reactive Protein Total Protein Albumin LDL Cholesterol Direct HDL Cholesterol Arterial Blood Glucose Urine WBC (Auto) Vancomycin Trough Crossmatch 03/02/20 03/03/20 03/03/20 17:59 00:28 04:52 WBC 13.3 H RBC Hgb 9.9 L Hct 32.2 L MCH 27 L MCHC 31 L RDW 25.8 H Plt Count 67 L Lymph % (Auto) Lymph # (Auto) Seg Neutrophils % Seg Neuts % (Manual) Lymphocytes % (Manual) Nucleated RBC % Seg Neutrophils # Seg Neutrophils # Man Lymphocytes # (Manual) PT INR D-Dimer ABG pH POC ABG pCO2 POC ABG pO2 ABG pO2 ABG HCO3 ABG O2 Saturation ABG Base Excess ABG Hemoglobin ABG Oxyhemoglobin ABG Sodium ABG Potassium ABG Chloride ABG Glucose Oxyhemoglobin Carboxyhemoglobin Sodium Potassium Chloride Carbon Dioxide BUN Glucose POC Glucose 113 H 114 H Lactic Acid Calcium Ferritin AST ALT Alkaline Phosphatase Lactate Dehydrogenase Total Creatine Kinase CK-MB (CK-2) Rel Index Troponin T C-Reactive Protein Total Protein Albumin LDL Cholesterol Direct HDL Cholesterol Arterial Blood Glucose Urine WBC (Auto) Vancomycin Trough Crossmatch 03/03/20 03/03/20 03/04/20 04:52 18:08 00:27 WBC RBC Hgb Hct MCH MCHC RDW Plt Count Lymph % (Auto) Lymph # (Auto) Seg Neutrophils % Seg Neuts % (Manual) Lymphocytes % (Manual) Nucleated RBC % Seg Neutrophils # Seg Neutrophils # Man Lymphocytes # (Manual) PT INR D-Dimer ABG pH POC ABG pCO2 POC ABG pO2 ABG pO2 ABG HCO3 ABG O2 Saturation ABG Base Excess ABG Hemoglobin ABG Oxyhemoglobin ABG Sodium ABG Potassium ABG Chloride ABG Glucose Oxyhemoglobin Carboxyhemoglobin Sodium Potassium Chloride 112.7 H Carbon Dioxide 19 L BUN 35 H Glucose POC Glucose 119 H 120 H Lactic Acid Calcium Ferritin AST ALT Alkaline Phosphatase Lactate Dehydrogenase Total Creatine Kinase CK-MB (CK-2) Rel Index Troponin T C-Reactive Protein Total Protein Albumin LDL Cholesterol Direct HDL Cholesterol Arterial Blood Glucose Urine WBC (Auto) Vancomycin Trough Crossmatch 03/04/20 03/04/20 03/04/20 05:52 12:17 16:45 WBC 17.9 H RBC 3.57 L Hgb 9.6 L Hct 32.8 L MCH 27 L MCHC 29 L RDW 26.4 H Plt Count 136 L D Lymph % (Auto) Lymph # (Auto) Seg Neutrophils % Seg Neuts % (Manual) 91.0 H Lymphocytes % (Manual) 6.0 L Nucleated RBC % 2.0 H Seg Neutrophils # Seg Neutrophils # Man 16.3 H Lymphocytes # (Manual) 1.1 L PT INR D-Dimer ABG pH POC ABG pCO2 POC ABG pO2 ABG pO2 ABG HCO3 ABG O2 Saturation ABG Base Excess ABG Hemoglobin ABG Oxyhemoglobin ABG Sodium ABG Potassium ABG Chloride ABG Glucose Oxyhemoglobin Carboxyhemoglobin Sodium Potassium Chloride Carbon Dioxide BUN Glucose POC Glucose 166 H 187 H Lactic Acid Calcium Ferritin AST ALT Alkaline Phosphatase Lactate Dehydrogenase Total Creatine Kinase CK-MB (CK-2) Rel Index Troponin T C-Reactive Protein Total Protein Albumin LDL Cholesterol Direct HDL Cholesterol Arterial Blood Glucose Urine WBC (Auto) Vancomycin Trough Crossmatch 03/04/20 03/04/20 03/04/20 16:45 18:29 22:44 WBC RBC Hgb Hct MCH MCHC RDW Plt Count Lymph % (Auto) Lymph # (Auto) Seg Neutrophils % Seg Neuts % (Manual) Lymphocytes % (Manual) Nucleated RBC % Seg Neutrophils # Seg Neutrophils # Man Lymphocytes # (Manual) PT INR D-Dimer ABG pH POC ABG pCO2 POC ABG pO2 ABG pO2 ABG HCO3 ABG O2 Saturation ABG Base Excess ABG Hemoglobin ABG Oxyhemoglobin ABG Sodium ABG Potassium ABG Chloride ABG Glucose Oxyhemoglobin Carboxyhemoglobin Sodium 146 H Potassium Chloride 115.6 H Carbon Dioxide 21 L BUN 39 H Glucose 137 H POC Glucose 147 H 188 H Lactic Acid Calcium Ferritin AST ALT Alkaline Phosphatase 219 H Lactate Dehydrogenase Total Creatine Kinase CK-MB (CK-2) Rel Index Troponin T C-Reactive Protein Total Protein 5.7 L Albumin 1.9 L LDL Cholesterol Direct HDL Cholesterol Arterial Blood Glucose Urine WBC (Auto) Vancomycin Trough Crossmatch 03/05/20 03/05/20 03/05/20 01:05 04:20 04:56 WBC 20.9 H RBC 3.41 L Hgb 9.3 L Hct 30.5 L MCH 27 L MCHC 30 L RDW 26.0 H Plt Count 130 L Lymph % (Auto) Lymph # (Auto) Seg Neutrophils % Seg Neuts % (Manual) Lymphocytes % (Manual) Nucleated RBC % Seg Neutrophils # Seg Neutrophils # Man Lymphocytes # (Manual) PT INR D-Dimer ABG pH 7.225 L 7.280 L POC ABG pCO2 POC ABG pO2 ABG pO2 178.8 H ABG HCO3 19.8 L ABG O2 Saturation ABG Base Excess -7.3 L -6.3 L ABG Hemoglobin 10.0 L 5.0 L ABG Oxyhemoglobin ABG Sodium ABG Potassium ABG Chloride ABG Glucose Oxyhemoglobin Carboxyhemoglobin Sodium Potassium Chloride Carbon Dioxide BUN Glucose POC Glucose Lactic Acid Calcium Ferritin AST ALT Alkaline Phosphatase Lactate Dehydrogenase Total Creatine Kinase CK-MB (CK-2) Rel Index Troponin T C-Reactive Protein Total Protein Albumin LDL Cholesterol Direct HDL Cholesterol Arterial Blood Glucose Urine WBC (Auto) Vancomycin Trough Crossmatch 03/05/20 03/05/20 03/05/20 04:56 05:29 11:27 WBC RBC Hgb Hct MCH MCHC RDW Plt Count Lymph % (Auto) Lymph # (Auto) Seg Neutrophils % Seg Neuts % (Manual) Lymphocytes % (Manual) Nucleated RBC % Seg Neutrophils # Seg Neutrophils # Man Lymphocytes # (Manual) PT INR D-Dimer ABG pH POC ABG pCO2 POC ABG pO2 ABG pO2 ABG HCO3 ABG O2 Saturation ABG Base Excess ABG Hemoglobin ABG Oxyhemoglobin ABG Sodium ABG Potassium ABG Chloride ABG Glucose Oxyhemoglobin Carboxyhemoglobin Sodium 149 H Potassium Chloride 116.7 H Carbon Dioxide 19 L BUN 43 H Glucose 156 H POC Glucose 169 H 159 H Lactic Acid Calcium Ferritin AST ALT Alkaline Phosphatase Lactate Dehydrogenase Total Creatine Kinase CK-MB (CK-2) Rel Index Troponin T C-Reactive Protein Total Protein Albumin LDL Cholesterol Direct HDL Cholesterol Arterial Blood Glucose Urine WBC (Auto) Vancomycin Trough Crossmatch 03/05/20 03/05/20 03/06/20 17:56 23:57 04:00 WBC RBC Hgb Hct MCH MCHC RDW Plt Count Lymph % (Auto) Lymph # (Auto) Seg Neutrophils % Seg Neuts % (Manual) Lymphocytes % (Manual) Nucleated RBC % Seg Neutrophils # Seg Neutrophils # Man Lymphocytes # (Manual) PT INR D-Dimer ABG pH POC ABG pCO2 POC ABG pO2 63.9 L ABG pO2 ABG HCO3 ABG O2 Saturation ABG Base Excess ABG Hemoglobin 9.2 L ABG Oxyhemoglobin 91.6 L ABG Sodium ABG Potassium 3.2 L ABG Chloride 117.0 H ABG Glucose 120 H Oxyhemoglobin Carboxyhemoglobin Sodium Potassium Chloride Carbon Dioxide BUN Glucose POC Glucose 154 H 153 H Lactic Acid Calcium Ferritin AST ALT Alkaline Phosphatase Lactate Dehydrogenase Total Creatine Kinase CK-MB (CK-2) Rel Index Troponin T C-Reactive Protein Total Protein Albumin LDL Cholesterol Direct HDL Cholesterol Arterial Blood Glucose 120 H Urine WBC (Auto) Vancomycin Trough Crossmatch 03/06/20 03/06/20 03/06/20 05:44 12:49 14:00 WBC 12.1 H RBC 3.08 L Hgb 8.4 L Hct 27.0 L MCH 27 L MCHC 31 L RDW 25.6 H Plt Count 83 L Lymph % (Auto) Lymph # (Auto) Seg Neutrophils % Seg Neuts % (Manual) 90.0 H Lymphocytes % (Manual) 3.0 L Nucleated RBC % Seg Neutrophils # Seg Neutrophils # Man 10.9 H Lymphocytes # (Manual) 0.4 L PT INR D-Dimer ABG pH POC ABG pCO2 POC ABG pO2 ABG pO2 ABG HCO3 ABG O2 Saturation ABG Base Excess ABG Hemoglobin ABG Oxyhemoglobin ABG Sodium ABG Potassium ABG Chloride ABG Glucose Oxyhemoglobin Carboxyhemoglobin Sodium Potassium Chloride Carbon Dioxide BUN Glucose POC Glucose 147 H 128 H Lactic Acid Calcium Ferritin AST ALT Alkaline Phosphatase Lactate Dehydrogenase Total Creatine Kinase CK-MB (CK-2) Rel Index Troponin T C-Reactive Protein Total Protein Albumin LDL Cholesterol Direct HDL Cholesterol Arterial Blood Glucose Urine WBC (Auto) Vancomycin Trough Crossmatch 03/06/20 03/06/20 03/07/20 14:00 18:26 00:17 WBC RBC Hgb Hct MCH MCHC RDW Plt Count Lymph % (Auto) Lymph # (Auto) Seg Neutrophils % Seg Neuts % (Manual) Lymphocytes % (Manual) Nucleated RBC % Seg Neutrophils # Seg Neutrophils # Man Lymphocytes # (Manual) PT INR D-Dimer ABG pH POC ABG pCO2 POC ABG pO2 ABG pO2 ABG HCO3 ABG O2 Saturation ABG Base Excess ABG Hemoglobin ABG Oxyhemoglobin ABG Sodium ABG Potassium ABG Chloride ABG Glucose Oxyhemoglobin Carboxyhemoglobin Sodium 147 H Potassium 3.0 L D Chloride 114.6 H Carbon Dioxide BUN 36 H Glucose 133 H POC Glucose 124 H 134 H Lactic Acid Calcium 8.0 L Ferritin AST ALT Alkaline Phosphatase Lactate Dehydrogenase Total Creatine Kinase CK-MB (CK-2) Rel Index Troponin T C-Reactive Protein Total Protein Albumin LDL Cholesterol Direct HDL Cholesterol Arterial Blood Glucose Urine WBC (Auto) Vancomycin Trough Crossmatch 03/07/20 03/07/20 03/07/20 05:13 05:13 05:23 WBC 12.5 H RBC 3.48 L Hgb 9.4 L Hct 30.7 L MCH 27 L MCHC 31 L RDW 26.1 H Plt Count 93 L Lymph % (Auto) Lymph # (Auto) Seg Neutrophils % Seg Neuts % (Manual) Lymphocytes % (Manual) Nucleated RBC % Seg Neutrophils # Seg Neutrophils # Man Lymphocytes # (Manual) PT INR D-Dimer ABG pH POC ABG pCO2 POC ABG pO2 ABG pO2 79.9 L ABG HCO3 ABG O2 Saturation ABG Base Excess ABG Hemoglobin 8.1 L ABG Oxyhemoglobin ABG Sodium ABG Potassium ABG Chloride ABG Glucose Oxyhemoglobin 94.4 L Carboxyhemoglobin Sodium 151 H Potassium Chloride 115.5 H Carbon Dioxide BUN 35 H Glucose 134 H POC Glucose Lactic Acid Calcium 8.3 L Ferritin AST ALT Alkaline Phosphatase Lactate Dehydrogenase Total Creatine Kinase CK-MB (CK-2) Rel Index Troponin T C-Reactive Protein Total Protein Albumin LDL Cholesterol Direct HDL Cholesterol Arterial Blood Glucose Urine WBC (Auto) Vancomycin Trough Crossmatch 03/07/20 03/07/20 03/07/20 05:39 12:18 17:29 WBC RBC Hgb Hct MCH MCHC RDW Plt Count Lymph % (Auto) Lymph # (Auto) Seg Neutrophils % Seg Neuts % (Manual) Lymphocytes % (Manual) Nucleated RBC % Seg Neutrophils # Seg Neutrophils # Man Lymphocytes # (Manual) PT INR D-Dimer ABG pH POC ABG pCO2 POC ABG pO2 ABG pO2 ABG HCO3 ABG O2 Saturation ABG Base Excess ABG Hemoglobin ABG Oxyhemoglobin ABG Sodium ABG Potassium ABG Chloride ABG Glucose Oxyhemoglobin Carboxyhemoglobin Sodium Potassium Chloride Carbon Dioxide BUN Glucose POC Glucose 146 H 153 H 124 H Lactic Acid Calcium Ferritin AST ALT Alkaline Phosphatase Lactate Dehydrogenase Total Creatine Kinase CK-MB (CK-2) Rel Index Troponin T C-Reactive Protein Total Protein Albumin LDL Cholesterol Direct HDL Cholesterol Arterial Blood Glucose Urine WBC (Auto) Vancomycin Trough Crossmatch 03/07/20 03/08/20 03/08/20 23:49 04:03 11:57 WBC RBC Hgb Hct MCH MCHC RDW Plt Count Lymph % (Auto) Lymph # (Auto) Seg Neutrophils % Seg Neuts % (Manual) Lymphocytes % (Manual) Nucleated RBC % Seg Neutrophils # Seg Neutrophils # Man Lymphocytes # (Manual) PT INR D-Dimer ABG pH POC ABG pCO2 POC ABG pO2 44.9 L ABG pO2 ABG HCO3 ABG O2 Saturation ABG Base Excess ABG Hemoglobin 10.1 L ABG Oxyhemoglobin ABG Sodium 146.0 H ABG Potassium ABG Chloride 114.0 H ABG Glucose Oxyhemoglobin Carboxyhemoglobin Sodium Potassium Chloride Carbon Dioxide BUN Glucose POC Glucose 139 H 135 H Lactic Acid Calcium Ferritin AST ALT Alkaline Phosphatase Lactate Dehydrogenase Total Creatine Kinase CK-MB (CK-2) Rel Index Troponin T C-Reactive Protein Total Protein Albumin LDL Cholesterol Direct HDL Cholesterol Arterial Blood Glucose Urine WBC (Auto) Vancomycin Trough Crossmatch
--- NOTE | 2020-03-08 15:37 | Progress Note ---
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 02/27/20 18:18 D50w (25gm) Syringe IV 50 ml PRN PRN Administration Hypoglycemia Protocol Ethambutol HCl 800 mg 02/27/20 12:00 03/08/20 09:29 Myambutol PO 800 mg QDAY AIDEE Administration Famotidine 20 mg 02/28/20 10:00 03/08/20 09:27 Pepcid PO 20 mg BID AIDEE Administration Fentanyl 50 mcg 03/07/20 10:23 Sublimaze IV Q2H PRN Pain , Severe (7-10) Furosemide 40 mg 03/03/20 10:00 03/08/20 09:29 Lasix PO 40 mg QDAY AIDEE Administration Glycopyrrolate 1 mg 03/05/20 10:00 03/08/20 09:27 Robinul PO 1 mg BID AIDEE Administration Haloperidol Lactate 5 mg 03/06/20 16:22 Haldol IV Q6HR PRN Anxiety Hydrophilic Ointment 1 applic 03/05/20 01:44 Vaseline Lip Therapy TP Q2HR PRN Dry Lips Dexmedetomidine HCl 200 mcg/ 50 mls @ 2.268 mls/hr 03/01/20 12:00 03/03/20 11:10 Sodium Chloride IV 0 mcg/kg/hr TITRATE AIDEE 0 mls/hr Titration Protocol 0.2 MCG/KG/HR Norepinephrine 4 mg in 250 mls @ 7.5 mls/hr 03/04/20 03:00 03/05/20 13:00 Levophed Drip 4 Mg/Ns 250 Ml IV 0 mcg/min TITR AIDEE 0 mls/hr Titration Protocol 2 MCG/MIN Fentanyl Citrate 2,000 mcg in 100 mls @ 2.268 mls/hr 03/05/20 02:00 Fentanyl Drip Premix IV TITR AIDEE Protocol 1 MCG/KG/HR Ceftriaxone Sodium 1 gm in 50 mls @ 100 mls/hr 03/07/20 14:00 03/08/20 09:27 Rocephin/Ns 1 Gm/50 Ml IV 03/09/20 10:29 100 mls/hr Q24HR AIDEE Administration Protocol Isoniazid 300 mg 02/27/20 12:00 03/08/20 09:27 Isoniazid PO 300 mg QDAY AIDEE Administration Lisinopril 2.5 mg 03/03/20 10:00 03/08/20 09:27 Zestril PO 2.5 mg QDAY AIDEE Administration Magnesium Hydroxide 30 ml 02/25/20 04:16 Milk Of Magnesia PO Q4H PRN Constipation Methadone HCl 10 mg 03/02/20 14:00 03/08/20 15:07 Dolophine PO 10 mg Q8HR AIDEE Administration Multi-Ingred Cream/Lotion/Oil/Oint 1 applic 03/05/20 01:44 Artificial Tears Ophth Oint OU Q4HR PRN Dry Eye(s) Ondansetron HCl 4 mg 02/25/20 04:16 Zofran IV Q8H PRN Nausea And Vomiting Pyrazinamide 1,000 mg 02/29/20 10:00 03/08/20 09:27 Pyrazinamide PO 1,000 mg QDAY AIDEE Administration Pyridoxine HCl 50 mg 02/27/20 12:00 03/08/20 09:29 Vitamin B-6 PO 50 mg QDAY AIDEE Administration Rifampin 600 mg 02/27/20 12:00 03/08/20 09:27 Rifadin PO 600 mg QDAY AIDEE Administration Senna/Docusate Sodium 2 tab 03/02/20 10:00 03/08/20 09:29 Senokot S PO Not Given BID AIDEE Simple Syrup 15 ml 02/27/20 10:25 Simple Syrup FEEDTUBE PRN PRN Hypoglycemia Simple Syrup 30 ml 02/27/20 10:25 Simple Syrup FEEDTUBE PRN PRN Hypoglycemia Sodium Bicarbonate 325 mg 02/27/20 10:25 Sodium Bicarbonate FEEDTUBE PRN PRN For Clogged Feeding Tube Sodium Chloride 10 ml 02/25/20 10:00 03/08/20 09:31 Sodium Chloride Flush Syringe 10 Ml IV 10 ml BID AIDEE Administration Sodium Chloride 10 ml 02/25/20 04:16 Sodium Chloride Flush Syringe 10 Ml IV PRN PRN LINE FLUSH Spironolactone 25 mg 03/03/20 10:00 03/08/20 09:28 Aldactone PO 25 mg QDAY AIDEE Administration Nutrition/Malnutrition Assess - Dietary Evaluation Nutrition/Malnutrition Findings: Nutrition Notes Start: 02/25/20 10:14 Freq: Status: Active Protocol: Document 03/07/20 13:09 DAYANARA (Rec: 03/07/20 13:51 DAYANARA [id number]) Co-Sign 03/07/20 13:09 MK Nutrition Notes Initial or Follow up Reassessment Current Diagnosis Decubitus(Pressure Ulcer), Sepsis,Respiratory Failure Other Pertinent Diagnosis Pneu, UTI, anemia, paraplegia, buttocks PU,Pulmonary TB Current Diet Osmolite 1.5 at 50ml/hr Labs/Tests Na 151 BUN 35 BG 134 Pertinent Medications Vitamin B6 Lasix Height 5 ft 9 in Weight 45.359 kg [place] Body Weight (kg) 72.72 BMI 14.8 Weight Status Underweight Subjective/Other Information F/U for NG replacement and stable TF. TF running at goal rate and pt tolerating. Pt reintubated due to cardiac arrest event. Percent of energy/protein needs met: 94%/100% Burn Absent Trauma Absent Current % PO Negligible Minimum of two criteria Yes Muscle Mass Mild Depletion (non-severe) Fluid Accumulation Moderate to Severe (severe) Reduced [employer] Strength Measurably Reduced (severe) #3 Nutrition Diagnosis Increased nutrient needs ( specify in comment below) Diagnosis Progress(for reassessment Continues documentation) #2 Nutrition Diagnosis Inadequate oral intake Etiology NG tube placed, TF restarted As Evidenced by Signs and Symptoms Pt tolerating TF at goal rate Diagnosis Progress(for reassessment Continues documentation) #1 Nutrition Diagnosis Malnutrition Diagnosis Progress(for reassessment Continues documentation) Is patient on ventilator? Yes Is Patient Ambulatory and/or Out of Bed No REE-([facility]-confined to bed) 1592.628 Kcal/Kg value to use for calculation 42 Approximate Energy Requirements Using 1905 kcal/Kg Calculation Used for Recommendations Kcal/kg Additional Notes Protein: 54-91g (1.2-2g/kg) Fluid: 1ml/kcal Nutrition Intervention Change Diet Order: Continue TF Nutrition Support: Osmolite 1.5 at 50ml/hr. Flush 250ml q4h for hypernatremia. Flush 150ml q4h once hypernatremia resolved. Kcal 1,800 Protein (gm) 75 Fluid (mL) 914 Goal #1 TF tolerance Goal #2 Meet at least 100% of energy and protein needs via TF. Goal #3 Wound healing Goal #4 Wt maintenance or wt gain Anticipated Discharge Needs: Unable to determine at this time Follow-Up By: 03/14/20 Additional Comments F/U for stable TF, hypernatremia, plan of care
[2020-03-09 00:43] LABS: Hematocrit 27.6 % (35.5-45.6); Hemoglobin 8.9 gm/dl (11.8-15.2); Mean Corpuscular HGB Conc 32 % (32-34); Mean Corpuscular Volume 87 fl (84-94); Platelet Count 118 K/mm3 (140-440); Red Blood Count 3.17 M/mm3 (3.65-5.03)
[2020-03-09 00:45] LABS: Red Cell Distribution Width 26.9 % (13.2-15.2)
[2020-03-09 01:06] LABS: Alanine Aminotransferase 13 units/L (7-56); Albumin 1.8 g/dL (3.9-5); BUN/Creatinine Ratio 43; Blood Urea Nitrogen 34 mg/dL (9-20); Calcium 8.3 mg/dL (8.4-10.2); Hemolysis Index 1
[2020-03-09 02:01] LABS: Basophils % (Manual) 0 % (0.0-1.8); Eosinophils % (Manual) 0 % (0.0-4.3); Total Cells Counted 100
[2020-03-09 02:04] LABS: Anisocytosis 2+; Hypochromasia Few
[2020-03-09] MEDS ORDERED: POTASSIUM CHLORIDE 20 MEQ PACKET FEEDTUBE ONE (03:22)
--- NOTE | 2020-03-09 03:50 | XRay Report ---
CHEST 1 VIEW INDICATION: follow up respiratory failure COMPARISON: One day prior. FINDINGS: Support devices: Unchanged. Heart: Stable. Lungs/Pleura: Extensive bilateral lung disease, unchanged. No new disease. IMPRESSION: 1. No significant change. Signer Name: Randal Powell MD Signed: 03/09/2020 3:46 AM Workstation Name: [id number]
[2020-03-09] MEDS: fentaNYL 100 MCG/2 ML INJ IV PRN ×4 (04:06→22:07)
[2020-03-09] MEDS: METHADONE 10 MG TAB PO SCH ×3 (06:00→22:06)
[2020-03-09] MEDS: PYRAZINAMIDE 500 MG TAB PO SCH (09:48)
[2020-03-09] MEDS: carvediloL 6.25 MG TAB PO SCH ×2 (09:49→22:05)
[2020-03-09] MEDS: AMIODARONE 200 MG TAB PO SCH (09:49)
[2020-03-09] MEDS: SPIRONOLACTONE 25 MG TAB PO SCH (09:49)
[2020-03-09] MEDS: GLYCOPYRROLATE 1 MG TAB PO SCH ×2 (09:50→22:05)
[2020-03-09] MEDS: ETHAMBUTOL 400 MG TAB PO SCH (09:50)
[2020-03-09] MEDS: FAMOTIDINE 20 MG TAB PO SCH ×2 (09:50→22:05)
[2020-03-09] MEDS: rifAMPin 300 MG CAP PO SCH (09:50)
[2020-03-09] MEDS: PYRIDOXINE 50 MG TAB PO SCH (09:50)
[2020-03-09] MEDS: ISONIAZID 300 MG TAB PO SCH (09:50)
[2020-03-09] MEDS: cefTRIAXone/NS 1 GM/50 ML 1 GM/50 ML BAG IV SCH (09:51)
[2020-03-09] MEDS: SENNOSIDES/DOCUSATE SODIUM 8.6/50 MG TAB PO SCH ×2 (10:07→22:08)
--- NOTE | 2020-03-09 10:12 | Progress Note ---
<DIANA HILL - Last Filed: 03/09/20 10:10> Assessment and Plan S/P PEA arrest 03/04 Acute respiratory failure Bilateral pneumonia Dilated cardiomyopathy, uncertain chronicity LVEF 15 to 20% by echo this presentation Reports of Transient VF following multiple rounds of epi during code BLUE on 02/24 no strips available for review currently in sinus rhythm on amiodarone for suppression. 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 Continue guideline directed optimal medical therapy for dilated cardiomyopathy. Due to multiple severe co-morbidities, will pursue conservative cardiac management. Subjective Date of service: 03/09/20 Principal diagnosis: Acute respiratory failure Interval history: No cardiac event reported overnight. Remains intubated on the vent. Objective Vital Signs Temp Pulse Pulse Resp BP Pulse Ox 03/09/20 09:49 78 130/88 03/09/20 09:27 77 22 130/91 100 03/09/20 09:00 71 20 114/82 98 03/09/20 08:30 73 20 119/85 100 03/09/20 08:00 98.5 F 77 22 118/81 100 03/09/20 07:48 73 20 98 03/09/20 07:30 75 18 118/76 100 03/09/20 07:00 78 22 119/83 100 03/09/20 06:30 78 21 121/87 100 03/09/20 06:00 80 24 130/90 100 03/09/20 05:30 68 20 121/82 98 03/09/20 05:00 69 21 119/82 99 03/09/20 04:31 71 23 99/71 99 03/09/20 04:00 77 74 16 95/66 98 03/09/20 03:42 100.6 F H 03/09/20 03:32 79 104/67 100 03/09/20 03:30 81 25 H 104/67 99 03/09/20 03:00 85 18 100/75 98 03/09/20 02:30 73 22 115/77 99 03/09/20 02:00 72 24 112/75 99 03/09/20 01:30 71 23 111/71 98 03/09/20 01:00 74 23 110/73 98 03/09/20 00:30 73 22 110/74 98 03/09/20 00:00 98.4 F 84 72 21 100/75 100 03/08/20 23:30 78 22 113/76 97 03/08/20 23:00 79 22 120/80 97 03/08/20 22:31 82 25 H 125/83 98 03/08/20 22:30 80 24 125/83 98 03/08/20 22:08 84 131/86 03/08/20 22:00 83 27 H 131/86 99 03/08/20 21:30 80 26 H 129/87 99 03/08/20 21:00 82 26 H 130/86 99 03/08/20 20:30 81 24 129/86 99 03/08/20 20:00 98.1 F 81 77 25 H 132/88 99 03/08/20 19:30 82 25 H 130/93 100 03/08/20 19:00 81 27 H 121/85 99 03/08/20 18:30 82 27 H 123/87 98 03/08/20 18:00 80 27 H 123/81 99 03/08/20 17:30 81 28 H 128/85 100 03/08/20 17:00 76 26 H 115/82 99 03/08/20 16:43 76 114/78 99 03/08/20 16:30 79 26 H 127/85 99 03/08/20 16:00 97.8 F 83 78 25 H 122/84 99 03/08/20 15:30 80 29 H 128/85 99 03/08/20 15:00 82 31 H 117/80 99 03/08/20 14:30 79 28 H 113/80 99 03/08/20 14:00 76 28 H 112/76 99 03/08/20 13:30 77 26 H 118/80 100 03/08/20 13:00 76 26 H 120/83 99 03/08/20 12:30 71 28 H 108/70 100 03/08/20 12:20 74 99/68 99 03/08/20 12:00 74 27 H 104/71 99 03/08/20 11:30 74 26 H 104/70 99 03/08/20 11:00 75 25 H 102/70 99 03/08/20 10:57 75 99 03/08/20 10:30 76 25 H 106/70 99 - Physical Examination General: Other (intubated on the vent) Cardiac: Positive: Reg Rate and Rhythm - Labs and Meds Cardiac Enzymes 03/09/20 Range/Units 00:11 AST 25 (5-40) units/L CBC 03/09/20 Range/Units 00:11 WBC 10.4 (4.5-11.0) K/mm3 RBC 3.17 L (3.65-5.03) M/mm3 Hgb 8.9 L (11.8-15.2) gm/dl Hct 27.6 L (35.5-45.6) % Plt Count 118 L (140-440) K/mm3 Comprehensive Metabolic Panel 03/09/20 Range/Units 00:11 Sodium 151 H (137-145) mmol/L Potassium 3.4 L (3.6-5.0) mmol/L Chloride 111.6 H (98-107) mmol/L Carbon Dioxide 30 (22-30) mmol/L BUN 34 H (9-20) mg/dL Creatinine 0.8 (0.8-1.3) mg/dL Glucose 96 (75-100) mg/dL Calcium 8.3 L (8.4-10.2) mg/dL AST 25 (5-40) units/L ALT 13 (7-56) units/L Alkaline Phosphatase 156 H (35-129) units/L Total Protein 5.7 L (6.3-8.2) g/dL Albumin 1.8 L (3.9-5) g/dL <EDSON WATERS - Last Filed: 03/09/20 21:01> Assessment and Plan - Patient Problems (1) Anemia Current Visit: Yes Status: Acute Qualifiers: Anemia type: unspecified type Qualified Code(s): D64.9 - Anemia, unspecified (2) Atrial fibrillation Current Visit: Yes Status: Acute (3) Cardiorespiratory arrest Current Visit: Yes Status: Acute (4) Dilated cardiomyopathy Current Visit: Yes Status: Acute (5) Paraplegia Current Visit: Yes Status: Acute (6) Pneumonia Current Visit: Yes Status: Acute Qualifiers: Pneumonia type: due to unspecified organism Laterality: bilateral Lung location: unspecified part of lung Qualified Code(s): J18.9 - Pneumonia, unspecified organism Subjective Interval history: I SAW THIS PT & AGREE WITH THE Dx & Tx PLAN Objective Vital Signs Temp Pulse Pulse Resp BP Pulse Ox 03/09/20 20:00 81 133/94 100 03/09/20 19:47 97.8 F 03/09/20 18:00 77 21 134/95 100 03/09/20 17:30 77 19 132/95 100 03/09/20 17:00 70 16 123/88 99 03/09/20 16:30 77 19 120/85 99 03/09/20 16:00 84 70 20 120/84 98 03/09/20 15:59 98.1 F 03/09/20 15:50 71 118/81 99 03/09/20 15:30 72 17 115/82 99 03/09/20 15:00 83 18 125/88 100 03/09/20 14:30 80 23 109/81 98 03/09/20 14:00 69 17 111/79 99 03/09/20 13:30 80 13 115/81 100 03/09/20 13:00 71 15 82/58 99 03/09/20 12:30 71 18 93/58 99 03/09/20 12:24 78 28 H 111/78 97 03/09/20 12:00 98.3 F 82 68 20 98 03/09/20 11:30 77 27 H 120/85 97 03/09/20 11:24 74 117/85 99 03/09/20 11:00 77 23 125/86 99 03/09/20 10:30 70 23 120/84 100 03/09/20 10:00 74 21 120/83 100 03/09/20 09:49 78 130/88 03/09/20 09:30 78 23 124/87 100 03/09/20 09:27 77 22 130/91 100 03/09/20 09:00 71 20 114/82 98 03/09/20 08:30 73 20 119/85 100 03/09/20 08:00 98.5 F 77 22 118/81 100 03/09/20 07:48 73 20 98 03/09/20 07:30 75 18 118/76 100 03/09/20 07:00 78 22 119/83 100 03/09/20 06:30 78 21 121/87 100 03/09/20 06:00 80 24 130/90 100 03/09/20 05:30 68 20 121/82 98 03/09/20 05:00 69 21 119/82 99 03/09/20 04:31 71 23 99/71 99 03/09/20 04:00 77 74 16 95/66 98 03/09/20 03:42 100.6 F H 03/09/20 03:32 79 104/67 100 03/09/20 03:30 81 25 H 104/67 99 03/09/20 03:00 85 18 100/75 98 03/09/20 02:30 73 22 115/77 99 03/09/20 02:00 72 24 112/75 99 03/09/20 01:30 71 23 111/71 98 03/09/20 01:00 74 23 110/73 98 03/09/20 00:30 73 22 110/74 98 03/09/20 00:00 98.4 F 84 72 21 100/75 100 03/08/20 23:30 78 22 113/76 97 03/08/20 23:00 79 22 120/80 97 03/08/20 22:31 82 25 H 125/83 98 03/08/20 22:30 80 24 125/83 98 03/08/20 22:08 84 131/86 03/08/20 22:00 83 27 H 131/86 99 03/08/20 21:30 80 26 H 129/87 99 - Labs and Meds Cardiac Enzymes 03/09/20 Range/Units 00:11 AST 25 (5-40) units/L CBC 03/09/20 Range/Units 00:11 WBC 10.4 (4.5-11.0) K/mm3 RBC 3.17 L (3.65-5.03) M/mm3 Hgb 8.9 L (11.8-15.2) gm/dl Hct 27.6 L (35.5-45.6) % Plt Count 118 L (140-440) K/mm3 Comprehensive Metabolic Panel 03/09/20 Range/Units 00:11 Sodium 151 H (137-145) mmol/L Potassium 3.4 L (3.6-5.0) mmol/L Chloride 111.6 H (98-107) mmol/L Carbon Dioxide 30 (22-30) mmol/L BUN 34 H (9-20) mg/dL Creatinine 0.8 (0.8-1.3) mg/dL Glucose 96 (75-100) mg/dL Calcium 8.3 L (8.4-10.2) mg/dL AST 25 (5-40) units/L ALT 13 (7-56) units/L Alkaline Phosphatase 156 H (35-129) units/L Total Protein 5.7 L (6.3-8.2) g/dL Albumin 1.8 L (3.9-5) g/dL
[2020-03-09] MEDS ORDERED: POTASSIUM CHLORIDE ER 20 MEQ TAB PO ONE (11:11)
--- NOTE | 2020-03-09 11:19 | Progress Note ---
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 Administration Pain , Severe (7-10) Furosemide 40 mg 03/03/20 10:00 03/08/20 09:29 Lasix PO 40 mg QDAY AIDEE Administration Glycopyrrolate 1 mg 03/05/20 10:00 03/09/20 09:50 Robinul PO 1 mg BID AIDEE Administration Haloperidol Lactate 5 mg 03/06/20 16:22 Haldol IV Q6HR PRN Anxiety Hydrophilic Ointment 1 applic 03/05/20 01:44 Vaseline Lip Therapy TP Q2HR PRN Dry Lips Dexmedetomidine HCl 200 mcg/ 50 mls @ 2.268 mls/hr 03/01/20 12:00 03/03/20 11:10 Sodium Chloride IV 0 mcg/kg/hr TITRATE AIDEE 0 mls/hr Titration Protocol 0.2 MCG/KG/HR Norepinephrine 4 mg in 250 mls @ 7.5 mls/hr 03/04/20 03:00 03/05/20 13:00 Levophed Drip 4 Mg/Ns 250 Ml IV 0 mcg/min TITR AIDEE 0 mls/hr Titration Protocol 2 MCG/MIN Fentanyl Citrate 2,000 mcg in 100 mls @ 2.268 mls/hr 03/05/20 02:00 Fentanyl Drip Premix IV TITR AIDEE Protocol 1 MCG/KG/HR Isoniazid 300 mg 02/27/20 12:00 03/09/20 09:50 Isoniazid PO 300 mg QDAY AIDEE Administration Lisinopril 2.5 mg 03/03/20 10:00 03/08/20 09:27 Zestril PO 2.5 mg QDAY AIDEE Administration Magnesium Hydroxide 30 ml 02/25/20 04:16 Milk Of Magnesia PO Q4H PRN Constipation Methadone HCl 10 mg 03/02/20 14:00 03/09/20 06:00 Dolophine PO 10 mg Q8HR AIDEE Administration Multi-Ingred Cream/Lotion/Oil/Oint 1 applic 03/05/20 01:44 Artificial Tears Ophth Oint OU Q4HR PRN Dry Eye(s) Ondansetron HCl 4 mg 02/25/20 04:16 Zofran IV Q8H PRN Nausea And Vomiting Pyrazinamide 1,000 mg 02/29/20 10:00 03/09/20 09:48 Pyrazinamide PO 1,000 mg QDAY AIDEE Administration Pyridoxine HCl 50 mg 02/27/20 12:00 03/09/20 09:50 Vitamin B-6 PO 50 mg QDAY AIDEE Administration Rifampin 600 mg 02/27/20 12:00 03/09/20 09:50 Rifadin PO 600 mg QDAY AIDEE Administration Senna/Docusate Sodium 2 tab 03/02/20 10:00 03/09/20 10:07 Senokot S PO 2 tab BID AIDEE Administration Simple Syrup 15 ml 02/27/20 10:25 Simple Syrup FEEDTUBE PRN PRN Hypoglycemia Simple Syrup 30 ml 02/27/20 10:25 Simple Syrup FEEDTUBE PRN PRN Hypoglycemia Sodium Bicarbonate 325 mg 02/27/20 10:25 Sodium Bicarbonate FEEDTUBE PRN PRN For Clogged Feeding Tube Sodium Chloride 10 ml 02/25/20 10:00 03/08/20 22:09 Sodium Chloride Flush Syringe 10 Ml IV 10 ml BID AIDEE Administration Sodium Chloride 10 ml 02/25/20 04:16 Sodium Chloride Flush Syringe 10 Ml IV PRN PRN LINE FLUSH Spironolactone 25 mg 03/03/20 10:00 03/09/20 09:49 Aldactone PO 25 mg QDAY AIDEE Administration Nutrition/Malnutrition Assess - Dietary Evaluation Nutrition/Malnutrition Findings: Nutrition Notes Start: 02/25/20 10:14 Freq: Status: Active Protocol: Document 03/07/20 13:09 DAYANARA (Rec: 03/07/20 13:51 DAYANARA [id number]) Co-Sign 03/07/20 13:09 Nutrition Notes Initial or Follow up Reassessment Current Diagnosis Decubitus(Pressure Ulcer), Sepsis,Respiratory Failure Other Pertinent Diagnosis Pneu, UTI, anemia, paraplegia, buttocks PU,Pulmonary TB Current Diet Osmolite 1.5 at 50ml/hr Labs/Tests Na 151 BUN 35 BG 134 Pertinent Medications Vitamin B6 Lasix Height 5 ft 9 in Weight 45.359 kg [place] Body Weight (kg) 72.72 BMI 14.8 Weight Status Underweight Subjective/Other Information F/U for NG replacement and stable TF. TF running at goal rate and pt tolerating. Pt reintubated due to cardiac arrest event. Percent of energy/protein needs met: 94%/100% Burn Absent Trauma Absent Current % PO Negligible Minimum of two criteria Yes Muscle Mass Mild Depletion (non-severe) Fluid Accumulation Moderate to Severe (severe) Reduced Complaint Supervisor Strength Measurably Reduced (severe) #3 Nutrition Diagnosis Increased nutrient needs ( specify in comment below) Diagnosis Progress(for reassessment Continues documentation) #2 Nutrition Diagnosis Inadequate oral intake Etiology NG tube placed, TF restarted As Evidenced by Signs and Symptoms Pt tolerating TF at goal rate Diagnosis Progress(for reassessment Continues documentation) #1 Nutrition Diagnosis Malnutrition Diagnosis Progress(for reassessment Continues documentation) Is patient on ventilator? Yes Is Patient Ambulatory and/or Out of Bed No REE-([facility]-confined to bed) 1592.628 Kcal/Kg value to use for calculation 42 Approximate Energy Requirements Using 1905 kcal/Kg Calculation Used for Recommendations Kcal/kg Additional Notes Protein: 54-91g (1.2-2g/kg) Fluid: 1ml/kcal Nutrition Intervention Change Diet Order: Continue TF Nutrition Support: Osmolite 1.5 at 50ml/hr. Flush 250ml q4h for hypernatremia. Flush 150ml q4h once hypernatremia resolved. Kcal 1,800 Protein (gm) 75 Fluid (mL) 914 Goal #1 TF tolerance Goal #2 Meet at least 100% of energy and protein needs via TF. Goal #3 Wound healing Goal #4 Wt maintenance or wt gain Anticipated Discharge Needs: Unable to determine at this time Follow-Up By: 03/14/20 Additional Comments F/U for stable TF, hypernatremia, plan of care
--- NOTE | 2020-03-09 11:36 | Progress Note ---
Assessment and Plan 44 y/o male admitted with hypoxemia, fever and brody catheter pain, subsequent cardiac arrest in the ED, resuscitated and intubated, now with hypotension, anion gap metabolic acidosis, acute respiratory failure, hypoglycemia and vtach/vfib, found to have severe left sided heart disease, now with cardiac arrest and re-intubation but awakens off sedation and follows commands. 1. Pulm-Down to 30%,minimal PEEP. Will attempt daily PSV trials. Would like to give patient a try again at extubation before we commit him to trach. Also w ill speak with IR in regards to biopsy. It may be more beneficial for them to do this while on the vent so that he can be adequately sedated for this. 2. CV-severe systolic heart failure. Cards following. They have added medications to the regimen. No invasive measures per them. 3. Heme-Anemia. Etiology unknown. Could be from chronic disease. HIT negative. stable 4. Renal- Function is normal. Dietary to increase free water. Needs more increases 5. Endo-restarted feeds via NG/Dobb laquita tube, dietary to increase free water. 6. 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 Abx therapy stopped. 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 ID follows. patient need biopsy of blastic lesions since rads feels that renal lesion is benign. I have reached out to IR, to ask about this. 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 Very very guarded prognosis, especially if malignancy is present. CCT 31 minutes. Subjective Date of service: 03/09/20 Principal diagnosis: Acute respiratory failure Interval history: No acute events. Awake and alert. Spoke with patient. he is aware of renal mass but never had biopsy done at [place]. Not sure why. There is no confirmed diagnosis of renal cell cancer. Tolerated PSV today for 3 hours, however I am not going to extubate today. Objective Vital Signs - 12hr 03/09/20 03/09/20 03/09/20 00:00 00:30 01:00 Temperature 98.4 F Pulse Rate 84 73 74 Pulse Rate [ 72 From Monitor] Respiratory 21 22 23 Rate Blood Pressure 100/75 110/74 110/73 O2 Sat by Pulse 100 98 98 Oximetry 03/09/20 03/09/20 03/09/20 01:30 02:00 02:30 Temperature Pulse Rate 71 72 73 Pulse Rate [ From Monitor] Respiratory 23 24 22 Rate Blood Pressure 111/71 112/75 115/77 O2 Sat by Pulse 98 99 99 Oximetry 03/09/20 03/09/20 03/09/20 03:00 03:30 03:32 Temperature Pulse Rate 85 81 79 Pulse Rate [ From Monitor] Respiratory 18 25 H Rate Blood Pressure 100/75 104/67 104/67 O2 Sat by Pulse 98 99 100 Oximetry 03/09/20 03/09/20 03/09/20 03:42 04:00 04:31 Temperature 100.6 F H Pulse Rate 77 71 Pulse Rate [ 74 From Monitor] Respiratory 16 23 Rate Blood Pressure 95/66 99/71 O2 Sat by Pulse 98 99 Oximetry 03/09/20 03/09/20 03/09/20 05:00 05:30 06:00 Temperature Pulse Rate 69 68 80 Pulse Rate [ From Monitor] Respiratory 21 20 24 Rate Blood Pressure 119/82 121/82 130/90 O2 Sat by Pulse 99 98 100 Oximetry 03/09/20 03/09/20 03/09/20 06:30 07:00 07:30 Temperature Pulse Rate 78 78 75 Pulse Rate [ From Monitor] Respiratory 21 22 18 Rate Blood Pressure 121/87 119/83 118/76 O2 Sat by Pulse 100 100 100 Oximetry 03/09/20 03/09/20 03/09/20 07:48 08:00 08:30 Temperature 98.5 F Pulse Rate 77 73 Pulse Rate [ 73 From Monitor] Respiratory 20 22 20 Rate Blood Pressure 118/81 119/85 O2 Sat by Pulse 98 100 100 Oximetry 03/09/20 03/09/20 03/09/20 09:00 09:27 09:49 Temperature Pulse Rate 71 77 78 Pulse Rate [ From Monitor] Respiratory 20 22 Rate Blood Pressure 114/82 130/91 130/88 O2 Sat by Pulse 98 100 Oximetry 03/09/20 11:24 Temperature Pulse Rate 74 Pulse Rate [ From Monitor] Respiratory Rate Blood Pressure 117/85 O2 Sat by Pulse 99 Oximetry Constitutional: agitated, appears uncomfortable, other (on vent, critically ill) Eyes: icteric, injected ENT: other (orally intubated with poor dentition) Neck: supple, no JVD Effort: mildly labored, other (Tachypneic) Ascultation: Right: rhonchi (upper lobe), Bilateral: rales Percussion: Bilateral: not dull Cardiovascular: other (sinus tach) Gastrointestinal: normoactive bowel sounds, soft Extremities: other (per nursing report, decubitus ulcer) Neurologic: unable to assess CBC and BMP: 03/09/20 00:11 03/09/20 00:11 ABG, PT/INR, D-dimer: ABG ABG pH 7.451 (7.320-7.450) H 03/09/20 04:17 POC ABG pCO2 43.4 mmHg (32.0-48.0) 03/09/20 04:17 ABG pCO2 39.1 mm Hg 03/07/20 05:23 POC ABG pO2 75.5 mmHg (83-108) L 03/09/20 04:17 ABG pO2 79.9 mm Hg (80.0-90.0) L 03/07/20 05:23 POC ABG HCO3 29.6 03/09/20 04:17 ABG O2 Saturation 97.0 % (95.0-99.0) 03/07/20 05:23 PT/INR, D-dimer PT 17.9 Sec. (12.2-14.9) H 02/26/20 04:00 INR 1.46 (0.87-1.13) H 02/26/20 04:00 D-Dimer 3251.26 ng/mlDDU (0-234) H 02/25/20 03:37 Abnormal lab findings: Abnormal Labs 02/25/20 02/25/20 02/25/20 00:46 00:46 00:46 WBC RBC 3.22 L Hgb 8.9 L Hct 28.5 L MCH MCHC 31 L RDW 24.8 H Plt Count 452 H Lymph % (Auto) 9.1 L Lymph # (Auto) 0.9 L Seg Neutrophils % 86.6 H Seg Neuts % (Manual) Lymphocytes % (Manual) Monocytes % (Manual) Nucleated RBC % Seg Neutrophils # 8.9 H Seg Neutrophils # Man Lymphocytes # (Manual) Monocytes # (Manual) PT INR D-Dimer ABG pH POC ABG pCO2 POC ABG pO2 ABG pO2 ABG HCO3 ABG O2 Saturation ABG Base Excess ABG Hemoglobin ABG Oxyhemoglobin ABG Sodium ABG Potassium ABG Chloride ABG Glucose Oxyhemoglobin Carboxyhemoglobin Sodium Potassium Chloride Carbon Dioxide BUN Glucose POC Glucose Lactic Acid 2.10 H* Calcium 8.3 L Ferritin AST ALT < 5 L Alkaline Phosphatase 187 H Lactate Dehydrogenase Total Creatine Kinase 28 L CK-MB (CK-2) Rel Index 8.5 H Troponin T 0.190 H* C-Reactive Protein Total Protein Albumin 2.5 L LDL Cholesterol Direct 45 L HDL Cholesterol 32 L Arterial Blood Glucose Urine WBC (Auto) Vancomycin Trough Crossmatch 02/25/20 02/25/20 02/25/20 02:32 03:37 03:37 WBC RBC Hgb Hct MCH MCHC RDW Plt Count Lymph % (Auto) Lymph # (Auto) Seg Neutrophils % Seg Neuts % (Manual) Lymphocytes % (Manual) Monocytes % (Manual) Nucleated RBC % Seg Neutrophils # Seg Neutrophils # Man Lymphocytes # (Manual) Monocytes # (Manual) PT INR D-Dimer 3251.26 H ABG pH POC ABG pCO2 POC ABG pO2 ABG pO2 ABG HCO3 ABG O2 Saturation ABG Base Excess ABG Hemoglobin ABG Oxyhemoglobin ABG Sodium ABG Potassium ABG Chloride ABG Glucose Oxyhemoglobin Carboxyhemoglobin Sodium Potassium Chloride Carbon Dioxide BUN Glucose 144 H POC Glucose Lactic Acid Calcium Ferritin AST ALT Alkaline Phosphatase Lactate Dehydrogenase 234 H Total Creatine Kinase CK-MB (CK-2) Rel Index Troponin T C-Reactive Protein 8.80 H Total Protein Albumin LDL Cholesterol Direct HDL Cholesterol Arterial Blood Glucose Urine WBC (Auto) 68.0 H Vancomycin Trough Crossmatch 02/25/20 02/25/20 02/25/20 03:37 05:36 06:33 WBC RBC Hgb Hct MCH MCHC RDW Plt Count Lymph % (Auto) Lymph # (Auto) Seg Neutrophils % Seg Neuts % (Manual) Lymphocytes % (Manual) Monocytes % (Manual) Nucleated RBC % Seg Neutrophils # Seg Neutrophils # Man Lymphocytes # (Manual) Monocytes # (Manual) PT INR D-Dimer ABG pH POC ABG pCO2 POC ABG pO2 ABG pO2 ABG HCO3 ABG O2 Saturation ABG Base Excess ABG Hemoglobin ABG Oxyhemoglobin ABG Sodium ABG Potassium ABG Chloride ABG Glucose Oxyhemoglobin Carboxyhemoglobin Sodium Potassium Chloride Carbon Dioxide BUN Glucose POC Glucose 234 H Lactic Acid Calcium Ferritin 450.5 H AST ALT Alkaline Phosphatase Lactate Dehydrogenase Total Creatine Kinase CK-MB (CK-2) Rel Index Troponin T 0.187 H* C-Reactive Protein Total Protein Albumin LDL Cholesterol Direct HDL Cholesterol Arterial Blood Glucose Urine WBC (Auto) Vancomycin Trough Crossmatch 02/25/20 02/25/20 02/25/20 09:30 13:10 16:27 WBC RBC Hgb Hct MCH MCHC RDW Plt Count Lymph % (Auto) Lymph # (Auto) Seg Neutrophils % Seg Neuts % (Manual) Lymphocytes % (Manual) Monocytes % (Manual) Nucleated RBC % Seg Neutrophils # Seg Neutrophils # Man Lymphocytes # (Manual) Monocytes # (Manual) PT INR D-Dimer ABG pH 7.149 L* 7.256 L POC ABG pCO2 POC ABG pO2 ABG pO2 165.3 H 64.5 L ABG HCO3 17.2 L 17.4 L ABG O2 Saturation 85.2 L ABG Base Excess -11.0 L -9.0 L ABG Hemoglobin 7.5 L 8.4 L ABG Oxyhemoglobin ABG Sodium ABG Potassium ABG Chloride ABG Glucose Oxyhemoglobin 83.4 L Carboxyhemoglobin Sodium Potassium Chloride Carbon Dioxide BUN Glucose POC Glucose Lactic Acid 3.20 H* Calcium Ferritin AST ALT Alkaline Phosphatase Lactate Dehydrogenase Total Creatine Kinase CK-MB (CK-2) Rel Index Troponin T C-Reactive Protein Total Protein Albumin LDL Cholesterol Direct HDL Cholesterol Arterial Blood Glucose Urine WBC (Auto) Vancomycin Trough Crossmatch 02/26/20 02/26/20 02/26/20 04:00 04:00 04:00 WBC 20.4 H RBC 2.61 L Hgb 7.0 L Hct 24.5 L MCH 27 L MCHC 29 L RDW 25.1 H Plt Count Lymph % (Auto) Lymph # (Auto) Seg Neutrophils % Seg Neuts % (Manual) 92.0 H Lymphocytes % (Manual) 4.0 L Monocytes % (Manual) Nucleated RBC % Seg Neutrophils # Seg Neutrophils # Man 18.8 H Lymphocytes # (Manual) 0.8 L Monocytes # (Manual) PT 17.9 H INR 1.46 H D-Dimer ABG pH POC ABG pCO2 POC ABG pO2 ABG pO2 ABG HCO3 ABG O2 Saturation ABG Base Excess ABG Hemoglobin ABG Oxyhemoglobin ABG Sodium ABG Potassium ABG Chloride ABG Glucose Oxyhemoglobin Carboxyhemoglobin Sodium Potassium Chloride 111.1 H Carbon Dioxide 14 L D BUN 29 H Glucose 57 L POC Glucose Lactic Acid Calcium 7.8 L Ferritin AST ALT Alkaline Phosphatase Lactate Dehydrogenase Total Creatine Kinase CK-MB (CK-2) Rel Index Troponin T C-Reactive Protein Total Protein Albumin LDL Cholesterol Direct HDL Cholesterol Arterial Blood Glucose Urine WBC (Auto) Vancomycin Trough Crossmatch 02/26/20 02/26/20 02/26/20 04:20 07:13 09:20 WBC RBC Hgb Hct MCH MCHC RDW Plt Count Lymph % (Auto) Lymph # (Auto) Seg Neutrophils % Seg Neuts % (Manual) Lymphocytes % (Manual) Monocytes % (Manual) Nucleated RBC % Seg Neutrophils # Seg Neutrophils # Man Lymphocytes # (Manual) Monocytes # (Manual) PT INR D-Dimer ABG pH 7.269 L POC ABG pCO2 POC ABG pO2 ABG pO2 236.1 H ABG HCO3 13.9 L ABG O2 Saturation 99.3 H ABG Base Excess -11.9 L ABG Hemoglobin 7.2 L ABG Oxyhemoglobin ABG Sodium ABG Potassium ABG Chloride ABG Glucose Oxyhemoglobin Carboxyhemoglobin Sodium Potassium Chloride Carbon Dioxide BUN Glucose POC Glucose 52 L Lactic Acid Calcium Ferritin AST ALT Alkaline Phosphatase Lactate Dehydrogenase Total Creatine Kinase CK-MB (CK-2) Rel Index Troponin T C-Reactive Protein Total Protein Albumin LDL Cholesterol Direct HDL Cholesterol Arterial Blood Glucose Urine WBC (Auto) Vancomycin Trough Crossmatch See Detail 02/27/20 02/27/20 02/27/20 04:59 05:40 07:30 WBC 16.6 H RBC 3.07 L Hgb 8.4 L Hct 27.4 L MCH MCHC 31 L RDW 24.4 H Plt Count Lymph % (Auto) Lymph # (Auto) Seg Neutrophils % Seg Neuts % (Manual) Lymphocytes % (Manual) Monocytes % (Manual) Nucleated RBC % Seg Neutrophils # Seg Neutrophils # Man Lymphocytes # (Manual) Monocytes # (Manual) PT INR D-Dimer ABG pH 7.306 L POC ABG pCO2 POC ABG pO2 ABG pO2 149.6 H ABG HCO3 17.0 L ABG O2 Saturation ABG Base Excess -8.5 L ABG Hemoglobin 7.8 L ABG Oxyhemoglobin ABG Sodium ABG Potassium ABG Chloride ABG Glucose Oxyhemoglobin Carboxyhemoglobin Sodium Potassium Chloride Carbon Dioxide BUN Glucose POC Glucose 64 L Lactic Acid Calcium Ferritin AST ALT Alkaline Phosphatase Lactate Dehydrogenase Total Creatine Kinase CK-MB (CK-2) Rel Index Troponin T C-Reactive Protein Total Protein Albumin LDL Cholesterol Direct HDL Cholesterol Arterial Blood Glucose Urine WBC (Auto) Vancomycin Trough Crossmatch 02/27/20 02/27/20 02/27/20 07:30 12:07 18:07 WBC RBC Hgb Hct MCH MCHC RDW Plt Count Lymph % (Auto) Lymph # (Auto) Seg Neutrophils % Seg Neuts % (Manual) Lymphocytes % (Manual) Monocytes % (Manual) Nucleated RBC % Seg Neutrophils # Seg Neutrophils # Man Lymphocytes # (Manual) Monocytes # (Manual) PT INR D-Dimer ABG pH POC ABG pCO2 POC ABG pO2 ABG pO2 ABG HCO3 ABG O2 Saturation ABG Base Excess ABG Hemoglobin ABG Oxyhemoglobin ABG Sodium ABG Potassium ABG Chloride ABG Glucose Oxyhemoglobin Carboxyhemoglobin Sodium 146 H Potassium Chloride 115.0 H Carbon Dioxide 17 L BUN 29 H Glucose 72 L POC Glucose 116 H 63 L Lactic Acid Calcium 7.9 L Ferritin AST 118 H ALT Alkaline Phosphatase 273 H Lactate Dehydrogenase Total Creatine Kinase CK-MB (CK-2) Rel Index Troponin T C-Reactive Protein Total Protein 5.3 L D Albumin 2.0 L LDL Cholesterol Direct HDL Cholesterol Arterial Blood Glucose Urine WBC (Auto) Vancomycin Trough Crossmatch 02/27/20 02/28/20 02/28/20 23:41 04:30 05:30 WBC 12.5 H RBC 2.99 L Hgb 8.0 L Hct 26.6 L MCH 27 L MCHC 30 L RDW 24.8 H Plt Count Lymph % (Auto) 7.5 L Lymph # (Auto) 0.9 L Seg Neutrophils % 86.9 H Seg Neuts % (Manual) Lymphocytes % (Manual) Monocytes % (Manual) Nucleated RBC % Seg Neutrophils # 10.8 H Seg Neutrophils # Man Lymphocytes # (Manual) Monocytes # (Manual) PT INR D-Dimer ABG pH 7.240 L POC ABG pCO2 POC ABG pO2 ABG pO2 ABG HCO3 ABG O2 Saturation ABG Base Excess ABG Hemoglobin 9.0 L ABG Oxyhemoglobin ABG Sodium ABG Potassium ABG Chloride ABG Glucose Oxyhemoglobin Carboxyhemoglobin Sodium Potassium Chloride Carbon Dioxide BUN Glucose POC Glucose 131 H Lactic Acid Calcium Ferritin AST ALT Alkaline Phosphatase Lactate Dehydrogenase Total Creatine Kinase CK-MB (CK-2) Rel Index Troponin T C-Reactive Protein Total Protein Albumin LDL Cholesterol Direct HDL Cholesterol Arterial Blood Glucose Urine WBC (Auto) Vancomycin Trough Crossmatch 02/28/20 02/28/20 02/28/20 06:00 09:00 17:25 WBC RBC Hgb Hct MCH MCHC RDW Plt Count Lymph % (Auto) Lymph # (Auto) Seg Neutrophils % Seg Neuts % (Manual) Lymphocytes % (Manual) Monocytes % (Manual) Nucleated RBC % Seg Neutrophils # Seg Neutrophils # Man Lymphocytes # (Manual) Monocytes # (Manual) PT INR D-Dimer ABG pH POC ABG pCO2 POC ABG pO2 ABG pO2 ABG HCO3 ABG O2 Saturation ABG Base Excess ABG Hemoglobin ABG Oxyhemoglobin ABG Sodium ABG Potassium ABG Chloride ABG Glucose Oxyhemoglobin Carboxyhemoglobin Sodium Potassium Chloride Carbon Dioxide BUN Glucose POC Glucose 121 H 61 L Lactic Acid Calcium Ferritin AST ALT Alkaline Phosphatase Lactate Dehydrogenase Total Creatine Kinase CK-MB (CK-2) Rel Index Troponin T C-Reactive Protein Total Protein Albumin LDL Cholesterol Direct HDL Cholesterol Arterial Blood Glucose Urine WBC (Auto) Vancomycin Trough 29.0 H Crossmatch 02/28/20 02/29/20 02/29/20 Unknown 04:32 05:17 WBC RBC Hgb Hct MCH MCHC RDW Plt Count Lymph % (Auto) Lymph # (Auto) Seg Neutrophils % Seg Neuts % (Manual) Lymphocytes % (Manual) Monocytes % (Manual) Nucleated RBC % Seg Neutrophils # Seg Neutrophils # Man Lymphocytes # (Manual) Monocytes # (Manual) PT INR D-Dimer ABG pH POC ABG pCO2 22.5 L POC ABG pO2 119.7 H ABG pO2 ABG HCO3 ABG O2 Saturation ABG Base Excess ABG Hemoglobin 10.5 L ABG Oxyhemoglobin ABG Sodium ABG Potassium ABG Chloride ABG Glucose Oxyhemoglobin Carboxyhemoglobin 0.3 L Sodium Potassium Chloride 114.7 H Carbon Dioxide 14 L BUN 30 H Glucose POC Glucose Lactic Acid Calcium 7.8 L Ferritin AST 193 H ALT Alkaline Phosphatase 354 H Lactate Dehydrogenase Total Creatine Kinase CK-MB (CK-2) Rel Index Troponin T C-Reactive Protein Total Protein 5.6 L Albumin 2.0 L LDL Cholesterol Direct HDL Cholesterol Arterial Blood Glucose Urine WBC (Auto) Vancomycin Trough Crossmatch 02/29/20 02/29/20 02/29/20 05:29 11:16 11:16 WBC 15.1 H RBC Hgb 10.1 L Hct 32.8 L D MCH 27 L MCHC 31 L RDW 25.2 H Plt Count Lymph % (Auto) Lymph # (Auto) Seg Neutrophils % Seg Neuts % (Manual) 98.0 H Lymphocytes % (Manual) 1.0 L Monocytes % (Manual) Nucleated RBC % 5.0 H Seg Neutrophils # Seg Neutrophils # Man 14.8 H Lymphocytes # (Manual) 0.2 L Monocytes # (Manual) PT INR D-Dimer ABG pH POC ABG pCO2 POC ABG pO2 ABG pO2 ABG HCO3 ABG O2 Saturation ABG Base Excess ABG Hemoglobin ABG Oxyhemoglobin ABG Sodium ABG Potassium ABG Chloride ABG Glucose Oxyhemoglobin Carboxyhemoglobin Sodium Potassium 3.5 L Chloride 111.7 H Carbon Dioxide 14 L BUN 33 H Glucose 180 H POC Glucose 125 H Lactic Acid Calcium 7.8 L Ferritin AST ALT Alkaline Phosphatase Lactate Dehydrogenase Total Creatine Kinase CK-MB (CK-2) Rel Index Troponin T C-Reactive Protein Total Protein Albumin LDL Cholesterol Direct HDL Cholesterol Arterial Blood Glucose Urine WBC (Auto) Vancomycin Trough Crossmatch 02/29/20 02/29/20 02/29/20 12:55 17:53 23:38 WBC RBC Hgb Hct MCH MCHC RDW Plt Count Lymph % (Auto) Lymph # (Auto) Seg Neutrophils % Seg Neuts % (Manual) Lymphocytes % (Manual) Monocytes % (Manual) Nucleated RBC % Seg Neutrophils # Seg Neutrophils # Man Lymphocytes # (Manual) Monocytes # (Manual) PT INR D-Dimer ABG pH POC ABG pCO2 POC ABG pO2 ABG pO2 ABG HCO3 ABG O2 Saturation ABG Base Excess ABG Hemoglobin ABG Oxyhemoglobin ABG Sodium ABG Potassium ABG Chloride ABG Glucose Oxyhemoglobin Carboxyhemoglobin Sodium Potassium Chloride Carbon Dioxide BUN Glucose POC Glucose 134 H 145 H 127 H Lactic Acid Calcium Ferritin AST ALT Alkaline Phosphatase Lactate Dehydrogenase Total Creatine Kinase CK-MB (CK-2) Rel Index Troponin T C-Reactive Protein Total Protein Albumin LDL Cholesterol Direct HDL Cholesterol Arterial Blood Glucose Urine WBC (Auto) Vancomycin Trough Crossmatch 03/01/20 03/01/20 03/01/20 03:46 05:44 07:55 WBC 14.0 H RBC Hgb 10.0 L Hct 32.3 L MCH 27 L MCHC 31 L RDW 25.4 H Plt Count 99 L Lymph % (Auto) Lymph # (Auto) Seg Neutrophils % Seg Neuts % (Manual) Lymphocytes % (Manual) Monocytes % (Manual) Nucleated RBC % Seg Neutrophils # Seg Neutrophils # Man Lymphocytes # (Manual) Monocytes # (Manual) PT INR D-Dimer ABG pH 7.288 L POC ABG pCO2 POC ABG pO2 ABG pO2 ABG HCO3 11.7 L ABG O2 Saturation ABG Base Excess -13.3 L ABG Hemoglobin ABG Oxyhemoglobin ABG Sodium ABG Potassium ABG Chloride ABG Glucose Oxyhemoglobin Carboxyhemoglobin Sodium Potassium Chloride Carbon Dioxide BUN Glucose POC Glucose 177 H Lactic Acid Calcium Ferritin AST ALT Alkaline Phosphatase Lactate Dehydrogenase Total Creatine Kinase CK-MB (CK-2) Rel Index Troponin T C-Reactive Protein Total Protein Albumin LDL Cholesterol Direct HDL Cholesterol Arterial Blood Glucose Urine WBC (Auto) Vancomycin Trough Crossmatch 03/01/20 03/01/20 03/01/20 07:55 12:14 18:07 WBC RBC Hgb Hct MCH MCHC RDW Plt Count Lymph % (Auto) Lymph # (Auto) Seg Neutrophils % Seg Neuts % (Manual) Lymphocytes % (Manual) Monocytes % (Manual) Nucleated RBC % Seg Neutrophils # Seg Neutrophils # Man Lymphocytes # (Manual) Monocytes # (Manual) PT INR D-Dimer ABG pH POC ABG pCO2 POC ABG pO2 ABG pO2 ABG HCO3 ABG O2 Saturation ABG Base Excess ABG Hemoglobin ABG Oxyhemoglobin ABG Sodium ABG Potassium ABG Chloride ABG Glucose Oxyhemoglobin Carboxyhemoglobin Sodium Potassium Chloride 111.5 H Carbon Dioxide 16 L BUN 36 H Glucose 157 H POC Glucose 163 H 109 H Lactic Acid Calcium 7.9 L Ferritin AST ALT Alkaline Phosphatase Lactate Dehydrogenase Total Creatine Kinase CK-MB (CK-2) Rel Index Troponin T C-Reactive Protein Total Protein Albumin LDL Cholesterol Direct HDL Cholesterol Arterial Blood Glucose Urine WBC (Auto) Vancomycin Trough Crossmatch 03/01/20 03/02/20 03/02/20 23:55 05:42 12:02 WBC RBC Hgb Hct MCH MCHC RDW Plt Count Lymph % (Auto) Lymph # (Auto) Seg Neutrophils % Seg Neuts % (Manual) Lymphocytes % (Manual) Monocytes % (Manual) Nucleated RBC % Seg Neutrophils # Seg Neutrophils # Man Lymphocytes # (Manual) Monocytes # (Manual) PT INR D-Dimer ABG pH POC ABG pCO2 POC ABG pO2 ABG pO2 ABG HCO3 ABG O2 Saturation ABG Base Excess ABG Hemoglobin ABG Oxyhemoglobin ABG Sodium ABG Potassium ABG Chloride ABG Glucose Oxyhemoglobin Carboxyhemoglobin Sodium Potassium Chloride Carbon Dioxide BUN Glucose POC Glucose 132 H 146 H 147 H Lactic Acid Calcium Ferritin AST ALT Alkaline Phosphatase Lactate Dehydrogenase Total Creatine Kinase CK-MB (CK-2) Rel Index Troponin T C-Reactive Protein Total Protein Albumin LDL Cholesterol Direct HDL Cholesterol Arterial Blood Glucose Urine WBC (Auto) Vancomycin Trough Crossmatch 03/02/20 03/03/20 03/03/20 17:59 00:28 04:52 WBC 13.3 H RBC Hgb 9.9 L Hct 32.2 L MCH 27 L MCHC 31 L RDW 25.8 H Plt Count 67 L Lymph % (Auto) Lymph # (Auto) Seg Neutrophils % Seg Neuts % (Manual) Lymphocytes % (Manual) Monocytes % (Manual) Nucleated RBC % Seg Neutrophils # Seg Neutrophils # Man Lymphocytes # (Manual) Monocytes # (Manual) PT INR D-Dimer ABG pH POC ABG pCO2 POC ABG pO2 ABG pO2 ABG HCO3 ABG O2 Saturation ABG Base Excess ABG Hemoglobin ABG Oxyhemoglobin ABG Sodium ABG Potassium ABG Chloride ABG Glucose Oxyhemoglobin Carboxyhemoglobin Sodium Potassium Chloride Carbon Dioxide BUN Glucose POC Glucose 113 H 114 H Lactic Acid Calcium Ferritin AST ALT Alkaline Phosphatase Lactate Dehydrogenase Total Creatine Kinase CK-MB (CK-2) Rel Index Troponin T C-Reactive Protein Total Protein Albumin LDL Cholesterol Direct HDL Cholesterol Arterial Blood Glucose Urine WBC (Auto) Vancomycin Trough Crossmatch 03/03/20 03/03/20 03/04/20 04:52 18:08 00:27 WBC RBC Hgb Hct MCH MCHC RDW Plt Count Lymph % (Auto) Lymph # (Auto) Seg Neutrophils % Seg Neuts % (Manual) Lymphocytes % (Manual) Monocytes % (Manual) Nucleated RBC % Seg Neutrophils # Seg Neutrophils # Man Lymphocytes # (Manual) Monocytes # (Manual) PT INR D-Dimer ABG pH POC ABG pCO2 POC ABG pO2 ABG pO2 ABG HCO3 ABG O2 Saturation ABG Base Excess ABG Hemoglobin ABG Oxyhemoglobin ABG Sodium ABG Potassium ABG Chloride ABG Glucose Oxyhemoglobin Carboxyhemoglobin Sodium Potassium Chloride 112.7 H Carbon Dioxide 19 L BUN 35 H Glucose POC Glucose 119 H 120 H Lactic Acid Calcium Ferritin AST ALT Alkaline Phosphatase Lactate Dehydrogenase Total Creatine Kinase CK-MB (CK-2) Rel Index Troponin T C-Reactive Protein Total Protein Albumin LDL Cholesterol Direct HDL Cholesterol Arterial Blood Glucose Urine WBC (Auto) Vancomycin Trough Crossmatch 03/04/20 03/04/20 03/04/20 05:52 12:17 16:45 WBC 17.9 H RBC 3.57 L Hgb 9.6 L Hct 32.8 L MCH 27 L MCHC 29 L RDW 26.4 H Plt Count 136 L D Lymph % (Auto) Lymph # (Auto) Seg Neutrophils % Seg Neuts % (Manual) 91.0 H Lymphocytes % (Manual) 6.0 L Monocytes % (Manual) Nucleated RBC % 2.0 H Seg Neutrophils # Seg Neutrophils # Man 16.3 H Lymphocytes # (Manual) 1.1 L Monocytes # (Manual) PT INR D-Dimer ABG pH POC ABG pCO2 POC ABG pO2 ABG pO2 ABG HCO3 ABG O2 Saturation ABG Base Excess ABG Hemoglobin ABG Oxyhemoglobin ABG Sodium ABG Potassium ABG Chloride ABG Glucose Oxyhemoglobin Carboxyhemoglobin Sodium Potassium Chloride Carbon Dioxide BUN Glucose POC Glucose 166 H 187 H Lactic Acid Calcium Ferritin AST ALT Alkaline Phosphatase Lactate Dehydrogenase Total Creatine Kinase CK-MB (CK-2) Rel Index Troponin T C-Reactive Protein Total Protein Albumin LDL Cholesterol Direct HDL Cholesterol Arterial Blood Glucose Urine WBC (Auto) Vancomycin Trough Crossmatch 03/04/20 03/04/20 03/04/20 16:45 18:29 22:44 WBC RBC Hgb Hct MCH MCHC RDW Plt Count Lymph % (Auto) Lymph # (Auto) Seg Neutrophils % Seg Neuts % (Manual) Lymphocytes % (Manual) Monocytes % (Manual) Nucleated RBC % Seg Neutrophils # Seg Neutrophils # Man Lymphocytes # (Manual) Monocytes # (Manual) PT INR D-Dimer ABG pH POC ABG pCO2 POC ABG pO2 ABG pO2 ABG HCO3 ABG O2 Saturation ABG Base Excess ABG Hemoglobin ABG Oxyhemoglobin ABG Sodium ABG Potassium ABG Chloride ABG Glucose Oxyhemoglobin Carboxyhemoglobin Sodium 146 H Potassium Chloride 115.6 H Carbon Dioxide 21 L BUN 39 H Glucose 137 H POC Glucose 147 H 188 H Lactic Acid Calcium Ferritin AST ALT Alkaline Phosphatase 219 H Lactate Dehydrogenase Total Creatine Kinase CK-MB (CK-2) Rel Index Troponin T C-Reactive Protein Total Protein 5.7 L Albumin 1.9 L LDL Cholesterol Direct HDL Cholesterol Arterial Blood Glucose Urine WBC (Auto) Vancomycin Trough Crossmatch 03/05/20 03/05/20 03/05/20 01:05 04:20 04:56 WBC 20.9 H RBC 3.41 L Hgb 9.3 L Hct 30.5 L MCH 27 L MCHC 30 L RDW 26.0 H Plt Count 130 L Lymph % (Auto) Lymph # (Auto) Seg Neutrophils % Seg Neuts % (Manual) Lymphocytes % (Manual) Monocytes % (Manual) Nucleated RBC % Seg Neutrophils # Seg Neutrophils # Man Lymphocytes # (Manual) Monocytes # (Manual) PT INR D-Dimer ABG pH 7.225 L 7.280 L POC ABG pCO2 POC ABG pO2 ABG pO2 178.8 H ABG HCO3 19.8 L ABG O2 Saturation ABG Base Excess -7.3 L -6.3 L ABG Hemoglobin 10.0 L 5.0 L ABG Oxyhemoglobin ABG Sodium ABG Potassium ABG Chloride ABG Glucose Oxyhemoglobin Carboxyhemoglobin Sodium Potassium Chloride Carbon Dioxide BUN Glucose POC Glucose Lactic Acid Calcium Ferritin AST ALT Alkaline Phosphatase Lactate Dehydrogenase Total Creatine Kinase CK-MB (CK-2) Rel Index Troponin T C-Reactive Protein Total Protein Albumin LDL Cholesterol Direct HDL Cholesterol Arterial Blood Glucose Urine WBC (Auto) Vancomycin Trough Crossmatch 03/05/20 03/05/20 03/05/20 04:56 05:29 11:27 WBC RBC Hgb Hct MCH MCHC RDW Plt Count Lymph % (Auto) Lymph # (Auto) Seg Neutrophils % Seg Neuts % (Manual) Lymphocytes % (Manual) Monocytes % (Manual) Nucleated RBC % Seg Neutrophils # Seg Neutrophils # Man Lymphocytes # (Manual) Monocytes # (Manual) PT INR D-Dimer ABG pH POC ABG pCO2 POC ABG pO2 ABG pO2 ABG HCO3 ABG O2 Saturation ABG Base Excess ABG Hemoglobin ABG Oxyhemoglobin ABG Sodium ABG Potassium ABG Chloride ABG Glucose Oxyhemoglobin Carboxyhemoglobin Sodium 149 H Potassium Chloride 116.7 H Carbon Dioxide 19 L BUN 43 H Glucose 156 H POC Glucose 169 H 159 H Lactic Acid Calcium Ferritin AST ALT Alkaline Phosphatase Lactate Dehydrogenase Total Creatine Kinase CK-MB (CK-2) Rel Index Troponin T C-Reactive Protein Total Protein Albumin LDL Cholesterol Direct HDL Cholesterol Arterial Blood Glucose Urine WBC (Auto) Vancomycin Trough Crossmatch 03/05/20 03/05/20 03/06/20 17:56 23:57 04:00 WBC RBC Hgb Hct MCH MCHC RDW Plt Count Lymph % (Auto) Lymph # (Auto) Seg Neutrophils % Seg Neuts % (Manual) Lymphocytes % (Manual) Monocytes % (Manual) Nucleated RBC % Seg Neutrophils # Seg Neutrophils # Man Lymphocytes # (Manual) Monocytes # (Manual) PT INR D-Dimer ABG pH POC ABG pCO2 POC ABG pO2 63.9 L ABG pO2 ABG HCO3 ABG O2 Saturation ABG Base Excess ABG Hemoglobin 9.2 L ABG Oxyhemoglobin 91.6 L ABG Sodium ABG Potassium 3.2 L ABG Chloride 117.0 H ABG Glucose 120 H Oxyhemoglobin Carboxyhemoglobin Sodium Potassium Chloride Carbon Dioxide BUN Glucose POC Glucose 154 H 153 H Lactic Acid Calcium Ferritin AST ALT Alkaline Phosphatase Lactate Dehydrogenase Total Creatine Kinase CK-MB (CK-2) Rel Index Troponin T C-Reactive Protein Total Protein Albumin LDL Cholesterol Direct HDL Cholesterol Arterial Blood Glucose 120 H Urine WBC (Auto) Vancomycin Trough Crossmatch 03/06/20 03/06/20 03/06/20 05:44 12:49 14:00 WBC 12.1 H RBC 3.08 L Hgb 8.4 L Hct 27.0 L MCH 27 L MCHC 31 L RDW 25.6 H Plt Count 83 L Lymph % (Auto) Lymph # (Auto) Seg Neutrophils % Seg Neuts % (Manual) 90.0 H Lymphocytes % (Manual) 3.0 L Monocytes % (Manual) Nucleated RBC % Seg Neutrophils # Seg Neutrophils # Man 10.9 H Lymphocytes # (Manual) 0.4 L Monocytes # (Manual) PT INR D-Dimer ABG pH POC ABG pCO2 POC ABG pO2 ABG pO2 ABG HCO3 ABG O2 Saturation ABG Base Excess ABG Hemoglobin ABG Oxyhemoglobin ABG Sodium ABG Potassium ABG Chloride ABG Glucose Oxyhemoglobin Carboxyhemoglobin Sodium Potassium Chloride Carbon Dioxide BUN Glucose POC Glucose 147 H 128 H Lactic Acid Calcium Ferritin AST ALT Alkaline Phosphatase Lactate Dehydrogenase Total Creatine Kinase CK-MB (CK-2) Rel Index Troponin T C-Reactive Protein Total Protein Albumin LDL Cholesterol Direct HDL Cholesterol Arterial Blood Glucose Urine WBC (Auto) Vancomycin Trough Crossmatch 03/06/20 03/06/20 03/07/20 14:00 18:26 00:17 WBC RBC Hgb Hct MCH MCHC RDW Plt Count Lymph % (Auto) Lymph # (Auto) Seg Neutrophils % Seg Neuts % (Manual) Lymphocytes % (Manual) Monocytes % (Manual) Nucleated RBC % Seg Neutrophils # Seg Neutrophils # Man Lymphocytes # (Manual) Monocytes # (Manual) PT INR D-Dimer ABG pH POC ABG pCO2 POC ABG pO2 ABG pO2 ABG HCO3 ABG O2 Saturation ABG Base Excess ABG Hemoglobin ABG Oxyhemoglobin ABG Sodium ABG Potassium ABG Chloride ABG Glucose Oxyhemoglobin Carboxyhemoglobin Sodium 147 H Potassium 3.0 L D Chloride 114.6 H Carbon Dioxide BUN 36 H Glucose 133 H POC Glucose 124 H 134 H Lactic Acid Calcium 8.0 L Ferritin AST ALT Alkaline Phosphatase Lactate Dehydrogenase Total Creatine Kinase CK-MB (CK-2) Rel Index Troponin T C-Reactive Protein Total Protein Albumin LDL Cholesterol Direct HDL Cholesterol Arterial Blood Glucose Urine WBC (Auto) Vancomycin Trough Crossmatch 03/07/20 03/07/20 03/07/20 05:13 05:13 05:23 WBC 12.5 H RBC 3.48 L Hgb 9.4 L Hct 30.7 L MCH 27 L MCHC 31 L RDW 26.1 H Plt Count 93 L Lymph % (Auto) Lymph # (Auto) Seg Neutrophils % Seg Neuts % (Manual) Lymphocytes % (Manual) Monocytes % (Manual) Nucleated RBC % Seg Neutrophils # Seg Neutrophils # Man Lymphocytes # (Manual) Monocytes # (Manual) PT INR D-Dimer ABG pH POC ABG pCO2 POC ABG pO2 ABG pO2 79.9 L ABG HCO3 ABG O2 Saturation ABG Base Excess ABG Hemoglobin 8.1 L ABG Oxyhemoglobin ABG Sodium ABG Potassium ABG Chloride ABG Glucose Oxyhemoglobin 94.4 L Carboxyhemoglobin Sodium 151 H Potassium Chloride 115.5 H Carbon Dioxide BUN 35 H Glucose 134 H POC Glucose Lactic Acid Calcium 8.3 L Ferritin AST ALT Alkaline Phosphatase Lactate Dehydrogenase Total Creatine Kinase CK-MB (CK-2) Rel Index Troponin T C-Reactive Protein Total Protein Albumin LDL Cholesterol Direct HDL Cholesterol Arterial Blood Glucose Urine WBC (Auto) Vancomycin Trough Crossmatch 03/07/20 03/07/20 03/07/20 05:39 12:18 17:29 WBC RBC Hgb Hct MCH MCHC RDW Plt Count Lymph % (Auto) Lymph # (Auto) Seg Neutrophils % Seg Neuts % (Manual) Lymphocytes % (Manual) Monocytes % (Manual) Nucleated RBC % Seg Neutrophils # Seg Neutrophils # Man Lymphocytes # (Manual) Monocytes # (Manual) PT INR D-Dimer ABG pH POC ABG pCO2 POC ABG pO2 ABG pO2 ABG HCO3 ABG O2 Saturation ABG Base Excess ABG Hemoglobin ABG Oxyhemoglobin ABG Sodium ABG Potassium ABG Chloride ABG Glucose Oxyhemoglobin Carboxyhemoglobin Sodium Potassium Chloride Carbon Dioxide BUN Glucose POC Glucose 146 H 153 H 124 H Lactic Acid Calcium Ferritin AST ALT Alkaline Phosphatase Lactate Dehydrogenase Total Creatine Kinase CK-MB (CK-2) Rel Index Troponin T C-Reactive Protein Total Protein Albumin LDL Cholesterol Direct HDL Cholesterol Arterial Blood Glucose Urine WBC (Auto) Vancomycin Trough Crossmatch 03/07/20 03/08/20 03/08/20 23:49 04:03 11:57 WBC RBC Hgb Hct MCH MCHC RDW Plt Count Lymph % (Auto) Lymph # (Auto) Seg Neutrophils % Seg Neuts % (Manual) Lymphocytes % (Manual) Monocytes % (Manual) Nucleated RBC % Seg Neutrophils # Seg Neutrophils # Man Lymphocytes # (Manual) Monocytes # (Manual) PT INR D-Dimer ABG pH POC ABG pCO2 POC ABG pO2 44.9 L ABG pO2 ABG HCO3 ABG O2 Saturation ABG Base Excess ABG Hemoglobin 10.1 L ABG Oxyhemoglobin ABG Sodium 146.0 H ABG Potassium ABG Chloride 114.0 H ABG Glucose Oxyhemoglobin Carboxyhemoglobin Sodium Potassium Chloride Carbon Dioxide BUN Glucose POC Glucose 139 H 135 H Lactic Acid Calcium Ferritin AST ALT Alkaline Phosphatase Lactate Dehydrogenase Total Creatine Kinase CK-MB (CK-2) Rel Index Troponin T C-Reactive Protein Total Protein Albumin LDL Cholesterol Direct HDL Cholesterol Arterial Blood Glucose Urine WBC (Auto) Vancomycin Trough Crossmatch 03/08/20 03/08/20 03/09/20 17:50 23:50 00:11 WBC RBC 3.17 L Hgb 8.9 L Hct 27.6 L MCH MCHC RDW 26.9 H Plt Count 118 L Lymph % (Auto) Lymph # (Auto) Seg Neutrophils % Seg Neuts % (Manual) 86.0 H Lymphocytes % (Manual) 5.0 L Monocytes % (Manual) 9.0 H Nucleated RBC % Seg Neutrophils # Seg Neutrophils # Man 8.9 H Lymphocytes # (Manual) 0.5 L Monocytes # (Manual) 0.9 H PT INR D-Dimer ABG pH POC ABG pCO2 POC ABG pO2 ABG pO2 ABG HCO3 ABG O2 Saturation ABG Base Excess ABG Hemoglobin ABG Oxyhemoglobin ABG Sodium ABG Potassium ABG Chloride ABG Glucose Oxyhemoglobin Carboxyhemoglobin Sodium Potassium Chloride Carbon Dioxide BUN Glucose POC Glucose 120 H 106 H Lactic Acid Calcium Ferritin AST ALT Alkaline Phosphatase Lactate Dehydrogenase Total Creatine Kinase CK-MB (CK-2) Rel Index Troponin T C-Reactive Protein Total Protein Albumin LDL Cholesterol Direct HDL Cholesterol Arterial Blood Glucose Urine WBC (Auto) Vancomycin Trough Crossmatch 03/09/20 03/09/20 00:11 04:17 WBC RBC Hgb Hct MCH MCHC RDW Plt Count Lymph % (Auto) Lymph # (Auto) Seg Neutrophils % Seg Neuts % (Manual) Lymphocytes % (Manual) Monocytes % (Manual) Nucleated RBC % Seg Neutrophils # Seg Neutrophils # Man Lymphocytes # (Manual) Monocytes # (Manual) PT INR D-Dimer ABG pH 7.451 H POC ABG pCO2 POC ABG pO2 75.5 L ABG pO2 ABG HCO3 ABG O2 Saturation ABG Base Excess ABG Hemoglobin 9.3 L ABG Oxyhemoglobin ABG Sodium 147.0 H ABG Potassium ABG Chloride 114.0 H ABG Glucose Oxyhemoglobin Carboxyhemoglobin Sodium 151 H Potassium 3.4 L Chloride 111.6 H Carbon Dioxide BUN 34 H Glucose POC Glucose Lactic Acid Calcium 8.3 L Ferritin AST ALT Alkaline Phosphatase 156 H Lactate Dehydrogenase Total Creatine Kinase CK-MB (CK-2) Rel Index Troponin T C-Reactive Protein Total Protein 5.7 L Albumin 1.8 L LDL Cholesterol Direct HDL Cholesterol Arterial Blood Glucose Urine WBC (Auto) Vancomycin Trough Crossmatch
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
--- NOTE | 2020-03-09 16:29 | Vascular Lab Report ---
DUPLEX DOPPLER LOWER EXTREMITY ARTERIAL, BILATERAL INDICATION: lt.leg pain/aortic thrombus. TECHNIQUE: Arterial duplex examination of both lower extremities performed using B-mode, color flow and spectral Doppler assessment. FINDINGS: RIGHT: Common Femoral Artery: PSV 64 cm/sec. Triphasic waveform. Proximal SFA: PSV 77 cm/sec. Triphasic waveform. Mid SFA: PSV 96 cm/sec. Monophasic waveform. Distal SFA: PSV 102 cm/sec. Monophasic waveform. Popliteal artery: PSV 84 cm/sec. Monophasic waveform. Posterior tibial artery: PSV 48 cm/sec. Monophasic waveform. Dorsalis Pedis Artery: PSV 34 cm/sec. Monophasic waveform. LEFT: Common Femoral Artery: PSV 61 cm/sec. Monophasic waveform. Proximal SFA: PSV 60 cm/sec. Monophasic waveform. Mid SFA: PSV 63 cm/sec. Monophasic waveform. Distal SFA: PSV 66 cm/sec. Triphasic waveform. Popliteal artery: PSV 51 cm/sec. Monophasic waveform. Posterior tibial artery: PSV 44 cm/sec. Monophasic waveform. Dorsalis Pedis Artery: PSV 34 cm/sec. Monophasic waveform. IMPRESSION: 1. Arteries are patent bilaterally. There is monophasic flow throughout the left lower extremity and from the mid superficial femoral artery distally on the right. No significant focal velocity elevatio n is seen to suggest focal stenosis within either lower extremity. The abnormal waveforms may be due to aortoiliac disease. Doppler Waveform: * Triphasic is normal. * Biphasic is abnormal if clear transition from triphasic signal along vascular tree. * Monophasic is abnormal. Signer Name: Chele Perez MD Signed: 03/09/2020 4:24 PM Workstation Name: [id number]
--- NOTE | 2020-03-09 16:30 | Vascular Lab Report ---
DUPLEX DOPPLER LOWER EXTREMITY VEINS, BILATERAL INDICATION / CLINICAL INFORMATION: swelling. Paraplegic TECHNIQUE: Duplex doppler imaging was performed through the veins of both lower extremities using venous melita patricia and other maneuvers. COMPARISON: None available. FINDINGS: RIGHT COMMON FEMORAL VEIN: Negative. RIGHT FEMORAL VEIN: Acute thrombus. RIGHT POPLITEAL VEIN: Acute thrombus. RIGHT CALF VEINS: Acute thrombus. LEFT COMMON FEMORAL VEIN: Negative. LEFT FEMORAL VEIN: Negative. LEFT POPLITEAL VEIN: Negative. LEFT CALF VEINS: Negative. ADDITIONAL FINDINGS: None. IMPRESSION: 1. There is acute DVT in the right lower extremity involving the femoral vein, popliteal vein in calf veins. CRITICAL RESULT: The technologist called this report to patient's nurse, Saad, at time 1500 Eastern time. Report wa s confirmed. Signer Name: Chele Perez MD Signed: 03/09/2020 4:26 PM Workstation Name: [id number]
[2020-03-10] MEDS: fentaNYL 100 MCG/2 ML INJ IV PRN ×7 (00:45→19:50)
[2020-03-10 04:24] LABS: ABG HCO3 31.5 mmol/L (20.0-26.0); ABG Methemoglobin 0.5 % (0.0-1.5); ABG Oxygen Saturation 96.8 % (95.0-99.0); ABG PCO2 45.2 mm Hg; ABG PH 7.461 pH Units (7.350-7.450); ABG PO2 72.5 mm Hg (80.0-90.0)
[2020-03-10 05:46] LABS: Mean Corpuscular HGB Conc 30 % (32-34); Mean Corpuscular Volume 92 fl (84-94); Platelet Count 113 K/mm3 (140-440)
[2020-03-10 05:47] LABS: Hematocrit 40.3 % (35.5-45.6); Hemoglobin 12.2 gm/dl (11.8-15.2); Red Cell Distribution Width 27.6 % (13.2-15.2)
[2020-03-10 05:57] LABS: Alanine Aminotransferase 18 units/L (7-56); Albumin 2.2 g/dL (3.9-5); BUN/Creatinine Ratio 44; Blood Urea Nitrogen 35 mg/dL (9-20); Calcium 8.4 mg/dL (8.4-10.2); Hemolysis Index 55
--- NOTE | 2020-03-10 06:12 | XRay Report ---
CHEST 1 VIEW INDICATION: follow up respiratory failure COMPARISON: One day prior. FINDINGS: Support devices: Unchanged. Heart: Normal and unchanged Lungs/Pleura: Bilateral lung disease is unchanged. No new disease. IMPRESSION: 1. No significant change. Signer Name: Randal Powell MD Signed: 03/10/2020 6:08 AM Workstation Name: [id number]
[2020-03-10] MEDS: METHADONE 10 MG TAB PO SCH ×3 (06:24→22:31)
--- NOTE | 2020-03-10 08:12 | Progress Note ---
Assessment and Plan S/P PEA arrest 03/04 Acute respiratory failure Bilateral pneumonia Dilated cardiomyopathy, uncertain chronicity LVEF 15 to 20% by echo this presentation Reports of Transient VF following multiple rounds of epi during code BLUE on 02/24 no strips available for review currently in sinus rhythm on amiodarone for suppression. 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 Continue guideline directed optimal medical therapy for dilated cardiomyopathy. Due to multiple severe co-morbidities, will pursue a conservative cardiac management. Subjective Date of service: 03/10/20 Principal diagnosis: Acute respiratory failure Interval history: No cardiac event reported overnight. Remains intubated. Objective Vital Signs Temp Pulse Pulse Resp BP Pulse Ox 03/10/20 07:00 84 18 124/88 100 03/10/20 06:30 77 20 114/83 98 03/10/20 06:00 89 21 105/86 98 03/10/20 05:30 85 22 112/83 97 03/10/20 05:00 88 20 110/86 98 03/10/20 04:31 85 18 145/100 97 03/10/20 04:23 80 143/104 98 03/10/20 04:00 82 80 20 145/100 99 03/10/20 03:31 98.8 F 03/10/20 03:30 82 19 136/100 99 03/10/20 03:00 79 21 139/104 99 03/10/20 02:30 74 19 135/94 97 03/10/20 02:00 92 H 24 140/111 96 03/10/20 01:30 70 19 129/89 97 03/10/20 01:00 71 17 129/91 96 03/10/20 00:30 85 18 136/97 98 03/10/20 00:00 98.4 F 84 70 21 140/98 97 03/09/20 23:30 74 16 129/87 98 03/09/20 23:00 78 17 133/95 98 03/09/20 22:30 88 18 144/104 99 03/09/20 22:05 141/99 03/09/20 22:00 81 21 141/99 99 03/09/20 21:30 85 18 152/102 99 03/09/20 21:00 81 15 152/98 100 10/08/20 20:30 80 19 128/93 99 03/09/20 20:00 78 24 133/94 100 03/09/20 19:47 97.8 F 03/09/20 19:30 78 19 126/91 98 03/09/20 19:00 80 24 129/93 100 03/09/20 18:30 81 24 133/91 100 03/09/20 18:17 77 20 132/96 100 03/09/20 18:00 77 21 134/95 100 03/09/20 17:30 77 19 132/95 100 03/09/20 17:00 70 16 123/88 99 03/09/20 16:30 77 19 120/85 99 03/09/20 16:00 84 70 20 120/84 98 03/09/20 15:59 98.1 F 03/09/20 15:50 71 118/81 99 03/09/20 15:30 72 17 115/82 99 03/09/20 15:00 83 18 125/88 100 03/09/20 14:30 80 23 109/81 98 03/09/20 14:00 69 17 111/79 99 03/09/20 13:30 80 13 115/81 100 03/09/20 13:00 71 15 82/58 99 03/09/20 12:30 71 18 93/58 99 03/09/20 12:24 78 28 H 111/78 97 03/09/20 12:00 98.3 F 82 68 20 98 03/09/20 11:30 77 27 H 120/85 97 03/09/20 11:24 74 117/85 99 03/09/20 11:00 77 23 125/86 99 03/09/20 10:30 70 23 120/84 100 03/09/20 10:00 74 21 120/83 100 03/09/20 09:49 78 130/88 03/09/20 09:30 78 23 124/87 100 03/09/20 09:27 77 22 130/91 100 03/09/20 09:00 71 20 114/82 98 03/09/20 08:30 73 20 119/85 100 - Physical Examination General: Other (intubated on the vent) HEENT: Positive: PERRL Cardiac: Positive: Reg Rate and Rhythm - Labs and Meds Cardiac Enzymes 03/10/20 Range/Units 04:38 AST 44 H (5-40) units/L CBC 03/10/20 Range/Units 04:38 WBC 7.8 (4.5-11.0) K/mm3 RBC 4.40 (3.65-5.03) M/mm3 Hgb 12.2 D (11.8-15.2) gm/dl Hct 40.3 D (35.5-45.6) % Plt Count 113 L (140-440) K/mm3 Lymph # (Auto) Animal Nutritionist [place] # (Auto) Animal Nutritionist Eos # (Auto) Animal Nutritionist Baso # (Auto) Animal Nutritionist Comprehensive Metabolic Panel 03/10/20 Range/Units 04:38 Sodium 150 H (137-145) mmol/L Potassium 5.0 D (3.6-5.0) mmol/L Chloride 108.7 H (98-107) mmol/L Carbon Dioxide 31 H (22-30) mmol/L BUN 35 H (9-20) mg/dL Creatinine 0.8 (0.8-1.3) mg/dL Glucose 126 H (75-100) mg/dL Calcium 8.4 (8.4-10.2) mg/dL AST 44 H (5-40) units/L ALT 18 (7-56) units/L Alkaline Phosphatase 201 H (35-129) units/L Total Protein 6.0 L (6.3-8.2) g/dL Albumin 2.2 L (3.9-5) g/dL
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
[2020-03-10] MEDS: rifAMPin 300 MG CAP PO SCH (11:31)
[2020-03-10] MEDS: PYRAZINAMIDE 500 MG TAB PO SCH (11:32)
[2020-03-10] MEDS: PYRIDOXINE 50 MG TAB PO SCH (11:32)
[2020-03-10] MEDS: ETHAMBUTOL 400 MG TAB PO SCH (11:32)
[2020-03-10] MEDS: SPIRONOLACTONE 25 MG TAB PO SCH (11:33)
[2020-03-10] MEDS: FAMOTIDINE 20 MG TAB PO SCH ×2 (11:34→22:33)
[2020-03-10] MEDS: carvediloL 6.25 MG TAB PO SCH ×2 (11:34→22:32)
[2020-03-10] MEDS: ISONIAZID 300 MG TAB PO SCH (11:34)
[2020-03-10] MEDS: FUROSEMIDE 40 MG TAB PO SCH (11:34)
[2020-03-10] MEDS: GLYCOPYRROLATE 1 MG TAB PO SCH ×2 (11:34→22:32)
[2020-03-10] MEDS: LISINOPRIL 5 MG TAB PO SCH (11:35)
[2020-03-10] MEDS: AMIODARONE 200 MG TAB PO SCH (11:35)
[2020-03-10] MEDS: SENNOSIDES/DOCUSATE SODIUM 8.6/50 MG TAB PO SCH ×2 (11:36→23:52)
--- NOTE | 2020-03-10 12:53 | Progress Note ---
Assessment and Plan 44 y/o male admitted with hypoxemia, fever and brody catheter pain, subsequent cardiac arrest in the ED, resuscitated and intubated, now with hypotension, anion gap metabolic acidosis, acute respiratory failure, hypoglycemia and vtach/vfib, found to have severe left sided heart disease, now with cardiac arrest and re-intubation but awakens off sedation and follows commands. 1. Pulm-Will extubate tomorrow. Patient will need to lie prone for biopsy. This will give us time to optimize his regimen. 2. CV-severe systolic heart failure. Cards following. They have added medications to the regimen. No invasive measures per them. 3. Heme-Anemia. Etiology unknown. Could be from chronic disease. HIT negative. stable 4. Renal- Function is normal. Dietary to increase free water. Needs more increases 5. Endo-restarted feeds via NG/Dobb laquita tube, dietary to increase free water. 6. 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 Abx therapy stopped. 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 ID follows. 03/10/2020 Long discussion with mother (akil Floyd) and long time significant other (Maria M Camacho andrade Roe) via [address] phone call. Good info from the significant other. Isael did not do biopsy as they wanted to treat the TB first to see if the lytic lesions were related to this. This is why patient was discharged to home without biopsy. Patient was scheduled for follow up CT on Friday but was admitted to [facility] on the prior and has been here ever since. I explained to them that the patient, even if this is cancer, may not be a candidate for much if any therapy given his other comorbid diseases. The family became tearful on the phone but expressed understanding. They wish to see him and I will attempt to work this out with them post extubation tomorrow or Friday. He will be NPO after midnight on Friday and Heparin drip should be stopped at midnight in preparation for biopsy on Friday. Overall prognosis is guarded to Poor. CCT 31 minutes. Subjective Date of service: 03/10/20 Principal diagnosis: Acute respiratory failure Interval history: Patient now found to have DVT. Will start on Heparin drip. Remains awake and alert. Tolerated PSV for 2 hours again today. Spoke with mother and significant other over the phone. Remainder is negative. Objective Vital Signs - 12hr 03/10/20 03/10/20 03/10/20 01:00 01:30 02:00 Temperature Pulse Rate 71 70 92 H Pulse Rate [ From Monitor] Respiratory 17 19 24 Rate Blood Pressure 129/91 129/89 140/111 O2 Sat by Pulse 96 97 96 Oximetry 03/10/20 03/10/20 03/10/20 02:30 03:00 03:30 Temperature Pulse Rate 74 79 82 Pulse Rate [ From Monitor] Respiratory 19 21 19 Rate Blood Pressure 135/94 139/104 136/100 O2 Sat by Pulse 97 99 99 Oximetry 03/10/20 03/10/20 03/10/20 03:31 04:00 04:23 Temperature 98.8 F Pulse Rate 82 80 Pulse Rate [ 80 From Monitor] Respiratory 20 Rate Blood Pressure 145/100 143/104 O2 Sat by Pulse 99 98 Oximetry 03/10/20 03/10/20 03/10/20 04:31 05:00 05:30 Temperature Pulse Rate 85 88 85 Pulse Rate [ From Monitor] Respiratory 18 20 22 Rate Blood Pressure 145/100 110/86 112/83 O2 Sat by Pulse 97 98 97 Oximetry 03/10/20 03/10/20 03/10/20 06:00 06:30 07:00 Temperature Pulse Rate 89 77 84 Pulse Rate [ From Monitor] Respiratory 21 20 18 Rate Blood Pressure 105/86 114/83 124/88 O2 Sat by Pulse 98 98 100 Oximetry 03/10/20 03/10/20 03/10/20 07:30 08:00 08:30 Temperature 98.8 F Pulse Rate 85 97 H 78 Pulse Rate [ 88 From Monitor] Respiratory 21 20 23 Rate Blood Pressure 121/85 127/99 115/81 O2 Sat by Pulse 100 98 99 Oximetry 03/10/20 03/10/20 03/10/20 09:00 09:30 10:00 Temperature Pulse Rate 91 H 92 H 92 H Pulse Rate [ From Monitor] Respiratory 26 H 40 H 30 H Rate Blood Pressure 127/98 137/100 133/93 O2 Sat by Pulse 99 96 96 Oximetry 03/10/20 03/10/20 03/10/20 10:30 11:00 11:30 Temperature Pulse Rate 103 H 97 H 94 H Pulse Rate [ From Monitor] Respiratory 29 H 21 28 H Rate Blood Pressure 134/99 126/92 126/91 O2 Sat by Pulse 96 97 99 Oximetry 03/10/20 03/10/20 03/10/20 11:33 11:34 12:00 Temperature 98.2 F Pulse Rate 936 H 92 H 94 H Pulse Rate [ 88 From Monitor] Respiratory 28 H Rate Blood Pressure 126/91 126/91 119/87 O2 Sat by Pulse 99 Oximetry Constitutional: agitated, appears uncomfortable, other (on vent, critically ill) Eyes: icteric, injected ENT: other (orally intubated with poor dentition) Neck: supple, no JVD Effort: mildly labored, other (Tachypneic) Ascultation: Right: rhonchi (upper lobe), Bilateral: rales Percussion: Bilateral: not dull Cardiovascular: other (sinus tach) Gastrointestinal: normoactive bowel sounds, soft Extremities: other (per nursing report, decubitus ulcer) Neurologic: unable to assess CBC and BMP: 03/10/20 04:38 03/10/20 04:38 ABG, PT/INR, D-dimer: ABG ABG pH 7.461 pH Units (7.350-7.450) H 03/10/20 03:50 POC ABG pCO2 43.4 mmHg (32.0-48.0) 03/09/20 04:17 ABG pCO2 45.2 mm Hg 03/10/20 03:50 POC ABG pO2 75.5 mmHg (83-108) L 03/09/20 04:17 ABG pO2 72.5 mm Hg (80.0-90.0) L 03/10/20 03:50 POC ABG HCO3 29.6 03/09/20 04:17 ABG O2 Saturation 96.8 % (95.0-99.0) 03/10/20 03:50 PT/INR, D-dimer PT 17.9 Sec. (12.2-14.9) H 02/26/20 04:00 INR 1.46 (0.87-1.13) H 02/26/20 04:00 D-Dimer 3251.26 ng/mlDDU (0-234) H 02/25/20 03:37 Abnormal lab findings: Abnormal Labs 02/25/20 02/25/20 02/25/20 00:46 00:46 00:46 WBC RBC 3.22 L Hgb 8.9 L Hct 28.5 L MCH MCHC 31 L RDW 24.8 H Plt Count 452 H Lymph % (Auto) 9.1 L Lymph # (Auto) 0.9 L Seg Neutrophils % 86.6 H Seg Neuts % (Manual) Lymphocytes % (Manual) Monocytes % (Manual) Nucleated RBC % Seg Neutrophils # 8.9 H Seg Neutrophils # Man Lymphocytes # (Manual) Monocytes # (Manual) PT INR D-Dimer ABG pH POC ABG pCO2 POC ABG pO2 ABG pO2 ABG HCO3 ABG O2 Saturation ABG Base Excess ABG Hemoglobin ABG Oxyhemoglobin ABG Sodium ABG Potassium ABG Chloride ABG Glucose Oxyhemoglobin Carboxyhemoglobin Sodium Potassium Chloride Carbon Dioxide BUN Glucose POC Glucose Lactic Acid 2.10 H* Calcium 8.3 L Ferritin AST ALT < 5 L Alkaline Phosphatase 187 H Lactate Dehydrogenase Total Creatine Kinase 28 L CK-MB (CK-2) Rel Index 8.5 H Troponin T 0.190 H* C-Reactive Protein Total Protein Albumin 2.5 L LDL Cholesterol Direct 45 L HDL Cholesterol 32 L Arterial Blood Glucose Urine WBC (Auto) Vancomycin Trough Crossmatch 02/25/20 02/25/20 02/25/20 02:32 03:37 03:37 WBC RBC Hgb Hct MCH MCHC RDW Plt Count Lymph % (Auto) Lymph # (Auto) Seg Neutrophils % Seg Neuts % (Manual) Lymphocytes % (Manual) Monocytes % (Manual) Nucleated RBC % Seg Neutrophils # Seg Neutrophils # Man Lymphocytes # (Manual) Monocytes # (Manual) PT INR D-Dimer 3251.26 H ABG pH POC ABG pCO2 POC ABG pO2 ABG pO2 ABG HCO3 ABG O2 Saturation ABG Base Excess ABG Hemoglobin ABG Oxyhemoglobin ABG Sodium ABG Potassium ABG Chloride ABG Glucose Oxyhemoglobin Carboxyhemoglobin Sodium Potassium Chloride Carbon Dioxide BUN Glucose 144 H POC Glucose Lactic Acid Calcium Ferritin AST ALT Alkaline Phosphatase Lactate Dehydrogenase 234 H Total Creatine Kinase CK-MB (CK-2) Rel Index Troponin T C-Reactive Protein 8.80 H Total Protein Albumin LDL Cholesterol Direct HDL Cholesterol Arterial Blood Glucose Urine WBC (Auto) 68.0 H Vancomycin Trough Crossmatch 02/25/20 02/25/20 02/25/20 03:37 05:36 06:33 WBC RBC Hgb Hct MCH MCHC RDW Plt Count Lymph % (Auto) Lymph # (Auto) Seg Neutrophils % Seg Neuts % (Manual) Lymphocytes % (Manual) Monocytes % (Manual) Nucleated RBC % Seg Neutrophils # Seg Neutrophils # Man Lymphocytes # (Manual) Monocytes # (Manual) PT INR D-Dimer ABG pH POC ABG pCO2 POC ABG pO2 ABG pO2 ABG HCO3 ABG O2 Saturation ABG Base Excess ABG Hemoglobin ABG Oxyhemoglobin ABG Sodium ABG Potassium ABG Chloride ABG Glucose Oxyhemoglobin Carboxyhemoglobin Sodium Potassium Chloride Carbon Dioxide BUN Glucose POC Glucose 234 H Lactic Acid Calcium Ferritin 450.5 H AST ALT Alkaline Phosphatase Lactate Dehydrogenase Total Creatine Kinase CK-MB (CK-2) Rel Index Troponin T 0.187 H* C-Reactive Protein Total Protein Albumin LDL Cholesterol Direct HDL Cholesterol Arterial Blood Glucose Urine WBC (Auto) Vancomycin Trough Crossmatch 02/25/20 02/25/20 02/25/20 09:30 13:10 16:27 WBC RBC Hgb Hct MCH MCHC RDW Plt Count Lymph % (Auto) Lymph # (Auto) Seg Neutrophils % Seg Neuts % (Manual) Lymphocytes % (Manual) Monocytes % (Manual) Nucleated RBC % Seg Neutrophils # Seg Neutrophils # Man Lymphocytes # (Manual) Monocytes # (Manual) PT INR D-Dimer ABG pH 7.149 L* 7.256 L POC ABG pCO2 POC ABG pO2 ABG pO2 165.3 H 64.5 L ABG HCO3 17.2 L 17.4 L ABG O2 Saturation 85.2 L ABG Base Excess -11.0 L -9.0 L ABG Hemoglobin 7.5 L 8.4 L ABG Oxyhemoglobin ABG Sodium ABG Potassium ABG Chloride ABG Glucose Oxyhemoglobin 83.4 L Carboxyhemoglobin Sodium Potassium Chloride Carbon Dioxide BUN Glucose POC Glucose Lactic Acid 3.20 H* Calcium Ferritin AST ALT Alkaline Phosphatase Lactate Dehydrogenase Total Creatine Kinase CK-MB (CK-2) Rel Index Troponin T C-Reactive Protein Total Protein Albumin LDL Cholesterol Direct HDL Cholesterol Arterial Blood Glucose Urine WBC (Auto) Vancomycin Trough Crossmatch 02/26/20 02/26/20 02/26/20 04:00 04:00 04:00 WBC 20.4 H RBC 2.61 L Hgb 7.0 L Hct 24.5 L MCH 27 L MCHC 29 L RDW 25.1 H Plt Count Lymph % (Auto) Lymph # (Auto) Seg Neutrophils % Seg Neuts % (Manual) 92.0 H Lymphocytes % (Manual) 4.0 L Monocytes % (Manual) Nucleated RBC % Seg Neutrophils # Seg Neutrophils # Man 18.8 H Lymphocytes # (Manual) 0.8 L Monocytes # (Manual) PT 17.9 H INR 1.46 H D-Dimer ABG pH POC ABG pCO2 POC ABG pO2 ABG pO2 ABG HCO3 ABG O2 Saturation ABG Base Excess ABG Hemoglobin ABG Oxyhemoglobin ABG Sodium ABG Potassium ABG Chloride ABG Glucose Oxyhemoglobin Carboxyhemoglobin Sodium Potassium Chloride 111.1 H Carbon Dioxide 14 L D BUN 29 H Glucose 57 L POC Glucose Lactic Acid Calcium 7.8 L Ferritin AST ALT Alkaline Phosphatase Lactate Dehydrogenase Total Creatine Kinase CK-MB (CK-2) Rel Index Troponin T C-Reactive Protein Total Protein Albumin LDL Cholesterol Direct HDL Cholesterol Arterial Blood Glucose Urine WBC (Auto) Vancomycin Trough Crossmatch 02/26/20 02/26/20 02/26/20 04:20 07:13 09:20 WBC RBC Hgb Hct MCH MCHC RDW Plt Count Lymph % (Auto) Lymph # (Auto) Seg Neutrophils % Seg Neuts % (Manual) Lymphocytes % (Manual) Monocytes % (Manual) Nucleated RBC % Seg Neutrophils # Seg Neutrophils # Man Lymphocytes # (Manual) Monocytes # (Manual) PT INR D-Dimer ABG pH 7.269 L POC ABG pCO2 POC ABG pO2 ABG pO2 236.1 H ABG HCO3 13.9 L ABG O2 Saturation 99.3 H ABG Base Excess -11.9 L ABG Hemoglobin 7.2 L ABG Oxyhemoglobin ABG Sodium ABG Potassium ABG Chloride ABG Glucose Oxyhemoglobin Carboxyhemoglobin Sodium Potassium Chloride Carbon Dioxide BUN Glucose POC Glucose 52 L Lactic Acid Calcium Ferritin AST ALT Alkaline Phosphatase Lactate Dehydrogenase Total Creatine Kinase CK-MB (CK-2) Rel Index Troponin T C-Reactive Protein Total Protein Albumin LDL Cholesterol Direct HDL Cholesterol Arterial Blood Glucose Urine WBC (Auto) Vancomycin Trough Crossmatch See Detail 02/27/20 02/27/20 02/27/20 04:59 05:40 07:30 WBC 16.6 H RBC 3.07 L Hgb 8.4 L Hct 27.4 L MCH MCHC 31 L RDW 24.4 H Plt Count Lymph % (Auto) Lymph # (Auto) Seg Neutrophils % Seg Neuts % (Manual) Lymphocytes % (Manual) Monocytes % (Manual) Nucleated RBC % Seg Neutrophils # Seg Neutrophils # Man Lymphocytes # (Manual) Monocytes # (Manual) PT INR D-Dimer ABG pH 7.306 L POC ABG pCO2 POC ABG pO2 ABG pO2 149.6 H ABG HCO3 17.0 L ABG O2 Saturation ABG Base Excess -8.5 L ABG Hemoglobin 7.8 L ABG Oxyhemoglobin ABG Sodium ABG Potassium ABG Chloride ABG Glucose Oxyhemoglobin Carboxyhemoglobin Sodium Potassium Chloride Carbon Dioxide BUN Glucose POC Glucose 64 L Lactic Acid Calcium Ferritin AST ALT Alkaline Phosphatase Lactate Dehydrogenase Total Creatine Kinase CK-MB (CK-2) Rel Index Troponin T C-Reactive Protein Total Protein Albumin LDL Cholesterol Direct HDL Cholesterol Arterial Blood Glucose Urine WBC (Auto) Vancomycin Trough Crossmatch 02/27/20 02/27/20 02/27/20 07:30 12:07 18:07 WBC RBC Hgb Hct MCH MCHC RDW Plt Count Lymph % (Auto) Lymph # (Auto) Seg Neutrophils % Seg Neuts % (Manual) Lymphocytes % (Manual) Monocytes % (Manual) Nucleated RBC % Seg Neutrophils # Seg Neutrophils # Man Lymphocytes # (Manual) Monocytes # (Manual) PT INR D-Dimer ABG pH POC ABG pCO2 POC ABG pO2 ABG pO2 ABG HCO3 ABG O2 Saturation ABG Base Excess ABG Hemoglobin ABG Oxyhemoglobin ABG Sodium ABG Potassium ABG Chloride ABG Glucose Oxyhemoglobin Carboxyhemoglobin Sodium 146 H Potassium Chloride 115.0 H Carbon Dioxide 17 L BUN 29 H Glucose 72 L POC Glucose 116 H 63 L Lactic Acid Calcium 7.9 L Ferritin AST 118 H ALT Alkaline Phosphatase 273 H Lactate Dehydrogenase Total Creatine Kinase CK-MB (CK-2) Rel Index Troponin T C-Reactive Protein Total Protein 5.3 L D Albumin 2.0 L LDL Cholesterol Direct HDL Cholesterol Arterial Blood Glucose Urine WBC (Auto) Vancomycin Trough Crossmatch 02/27/20 02/28/20 02/28/20 23:41 04:30 05:30 WBC 12.5 H RBC 2.99 L Hgb 8.0 L Hct 26.6 L MCH 27 L MCHC 30 L RDW 24.8 H Plt Count Lymph % (Auto) 7.5 L Lymph # (Auto) 0.9 L Seg Neutrophils % 86.9 H Seg Neuts % (Manual) Lymphocytes % (Manual) Monocytes % (Manual) Nucleated RBC % Seg Neutrophils # 10.8 H Seg Neutrophils # Man Lymphocytes # (Manual) Monocytes # (Manual) PT INR D-Dimer ABG pH 7.240 L POC ABG pCO2 POC ABG pO2 ABG pO2 ABG HCO3 ABG O2 Saturation ABG Base Excess ABG Hemoglobin 9.0 L ABG Oxyhemoglobin ABG Sodium ABG Potassium ABG Chloride ABG Glucose Oxyhemoglobin Carboxyhemoglobin Sodium Potassium Chloride Carbon Dioxide BUN Glucose POC Glucose 131 H Lactic Acid Calcium Ferritin AST ALT Alkaline Phosphatase Lactate Dehydrogenase Total Creatine Kinase CK-MB (CK-2) Rel Index Troponin T C-Reactive Protein Total Protein Albumin LDL Cholesterol Direct HDL Cholesterol Arterial Blood Glucose Urine WBC (Auto) Vancomycin Trough Crossmatch 02/28/20 02/28/20 02/28/20 06:00 09:00 17:25 WBC RBC Hgb Hct MCH MCHC RDW Plt Count Lymph % (Auto) Lymph # (Auto) Seg Neutrophils % Seg Neuts % (Manual) Lymphocytes % (Manual) Monocytes % (Manual) Nucleated RBC % Seg Neutrophils # Seg Neutrophils # Man Lymphocytes # (Manual) Monocytes # (Manual) PT INR D-Dimer ABG pH POC ABG pCO2 POC ABG pO2 ABG pO2 ABG HCO3 ABG O2 Saturation ABG Base Excess ABG Hemoglobin ABG Oxyhemoglobin ABG Sodium ABG Potassium ABG Chloride ABG Glucose Oxyhemoglobin Carboxyhemoglobin Sodium Potassium Chloride Carbon Dioxide BUN Glucose POC Glucose 121 H 61 L Lactic Acid Calcium Ferritin AST ALT Alkaline Phosphatase Lactate Dehydrogenase Total Creatine Kinase CK-MB (CK-2) Rel Index Troponin T C-Reactive Protein Total Protein Albumin LDL Cholesterol Direct HDL Cholesterol Arterial Blood Glucose Urine WBC (Auto) Vancomycin Trough 29.0 H Crossmatch 02/28/20 02/29/20 02/29/20 Unknown 04:32 05:17 WBC RBC Hgb Hct MCH MCHC RDW Plt Count Lymph % (Auto) Lymph # (Auto) Seg Neutrophils % Seg Neuts % (Manual) Lymphocytes % (Manual) Monocytes % (Manual) Nucleated RBC % Seg Neutrophils # Seg Neutrophils # Man Lymphocytes # (Manual) Monocytes # (Manual) PT INR D-Dimer ABG pH POC ABG pCO2 22.5 L POC ABG pO2 119.7 H ABG pO2 ABG HCO3 ABG O2 Saturation ABG Base Excess ABG Hemoglobin 10.5 L ABG Oxyhemoglobin ABG Sodium ABG Potassium ABG Chloride ABG Glucose Oxyhemoglobin Carboxyhemoglobin 0.3 L Sodium Potassium Chloride 114.7 H Carbon Dioxide 14 L BUN 30 H Glucose POC Glucose Lactic Acid Calcium 7.8 L Ferritin AST 193 H ALT Alkaline Phosphatase 354 H Lactate Dehydrogenase Total Creatine Kinase CK-MB (CK-2) Rel Index Troponin T C-Reactive Protein Total Protein 5.6 L Albumin 2.0 L LDL Cholesterol Direct HDL Cholesterol Arterial Blood Glucose Urine WBC (Auto) Vancomycin Trough Crossmatch 02/29/20 02/29/20 02/29/20 05:29 11:16 11:16 WBC 15.1 H RBC Hgb 10.1 L Hct 32.8 L D MCH 27 L MCHC 31 L RDW 25.2 H Plt Count Lymph % (Auto) Lymph # (Auto) Seg Neutrophils % Seg Neuts % (Manual) 98.0 H Lymphocytes % (Manual) 1.0 L Monocytes % (Manual) Nucleated RBC % 5.0 H Seg Neutrophils # Seg Neutrophils # Man 14.8 H Lymphocytes # (Manual) 0.2 L Monocytes # (Manual) PT INR D-Dimer ABG pH POC ABG pCO2 POC ABG pO2 ABG pO2 ABG HCO3 ABG O2 Saturation ABG Base Excess ABG Hemoglobin ABG Oxyhemoglobin ABG Sodium ABG Potassium ABG Chloride ABG Glucose Oxyhemoglobin Carboxyhemoglobin Sodium Potassium 3.5 L Chloride 111.7 H Carbon Dioxide 14 L BUN 33 H Glucose 180 H POC Glucose 125 H Lactic Acid Calcium 7.8 L Ferritin AST ALT Alkaline Phosphatase Lactate Dehydrogenase Total Creatine Kinase CK-MB (CK-2) Rel Index Troponin T C-Reactive Protein Total Protein Albumin LDL Cholesterol Direct HDL Cholesterol Arterial Blood Glucose Urine WBC (Auto) Vancomycin Trough Crossmatch 02/29/20 02/29/20 02/29/20 12:55 17:53 23:38 WBC RBC Hgb Hct MCH MCHC RDW Plt Count Lymph % (Auto) Lymph # (Auto) Seg Neutrophils % Seg Neuts % (Manual) Lymphocytes % (Manual) Monocytes % (Manual) Nucleated RBC % Seg Neutrophils # Seg Neutrophils # Man Lymphocytes # (Manual) Monocytes # (Manual) PT INR D-Dimer ABG pH POC ABG pCO2 POC ABG pO2 ABG pO2 ABG HCO3 ABG O2 Saturation ABG Base Excess ABG Hemoglobin ABG Oxyhemoglobin ABG Sodium ABG Potassium ABG Chloride ABG Glucose Oxyhemoglobin Carboxyhemoglobin Sodium Potassium Chloride Carbon Dioxide BUN Glucose POC Glucose 134 H 145 H 127 H Lactic Acid Calcium Ferritin AST ALT Alkaline Phosphatase Lactate Dehydrogenase Total Creatine Kinase CK-MB (CK-2) Rel Index Troponin T C-Reactive Protein Total Protein Albumin LDL Cholesterol Direct HDL Cholesterol Arterial Blood Glucose Urine WBC (Auto) Vancomycin Trough Crossmatch 03/01/20 03/01/20 03/01/20 03:46 05:44 07:55 WBC 14.0 H RBC Hgb 10.0 L Hct 32.3 L MCH 27 L MCHC 31 L RDW 25.4 H Plt Count 99 L Lymph % (Auto) Lymph # (Auto) Seg Neutrophils % Seg Neuts % (Manual) Lymphocytes % (Manual) Monocytes % (Manual) Nucleated RBC % Seg Neutrophils # Seg Neutrophils # Man Lymphocytes # (Manual) Monocytes # (Manual) PT INR D-Dimer ABG pH 7.288 L POC ABG pCO2 POC ABG pO2 ABG pO2 ABG HCO3 11.7 L ABG O2 Saturation ABG Base Excess -13.3 L ABG Hemoglobin ABG Oxyhemoglobin ABG Sodium ABG Potassium ABG Chloride ABG Glucose Oxyhemoglobin Carboxyhemoglobin Sodium Potassium Chloride Carbon Dioxide BUN Glucose POC Glucose 177 H Lactic Acid Calcium Ferritin AST ALT Alkaline Phosphatase Lactate Dehydrogenase Total Creatine Kinase CK-MB (CK-2) Rel Index Troponin T C-Reactive Protein Total Protein Albumin LDL Cholesterol Direct HDL Cholesterol Arterial Blood Glucose Urine WBC (Auto) Vancomycin Trough Crossmatch 03/01/20 03/01/20 03/01/20 07:55 12:14 18:07 WBC RBC Hgb Hct MCH MCHC RDW Plt Count Lymph % (Auto) Lymph # (Auto) Seg Neutrophils % Seg Neuts % (Manual) Lymphocytes % (Manual) Monocytes % (Manual) Nucleated RBC % Seg Neutrophils # Seg Neutrophils # Man Lymphocytes # (Manual) Monocytes # (Manual) PT INR D-Dimer ABG pH POC ABG pCO2 POC ABG pO2 ABG pO2 ABG HCO3 ABG O2 Saturation ABG Base Excess ABG Hemoglobin ABG Oxyhemoglobin ABG Sodium ABG Potassium ABG Chloride ABG Glucose Oxyhemoglobin Carboxyhemoglobin Sodium Potassium Chloride 111.5 H Carbon Dioxide 16 L BUN 36 H Glucose 157 H POC Glucose 163 H 109 H Lactic Acid Calcium 7.9 L Ferritin AST ALT Alkaline Phosphatase Lactate Dehydrogenase Total Creatine Kinase CK-MB (CK-2) Rel Index Troponin T C-Reactive Protein Total Protein Albumin LDL Cholesterol Direct HDL Cholesterol Arterial Blood Glucose Urine WBC (Auto) Vancomycin Trough Crossmatch 03/01/20 03/02/20 03/02/20 23:55 05:42 12:02 WBC RBC Hgb Hct MCH MCHC RDW Plt Count Lymph % (Auto) Lymph # (Auto) Seg Neutrophils % Seg Neuts % (Manual) Lymphocytes % (Manual) Monocytes % (Manual) Nucleated RBC % Seg Neutrophils # Seg Neutrophils # Man Lymphocytes # (Manual) Monocytes # (Manual) PT INR D-Dimer ABG pH POC ABG pCO2 POC ABG pO2 ABG pO2 ABG HCO3 ABG O2 Saturation ABG Base Excess ABG Hemoglobin ABG Oxyhemoglobin ABG Sodium ABG Potassium ABG Chloride ABG Glucose Oxyhemoglobin Carboxyhemoglobin Sodium Potassium Chloride Carbon Dioxide BUN Glucose POC Glucose 132 H 146 H 147 H Lactic Acid Calcium Ferritin AST ALT Alkaline Phosphatase Lactate Dehydrogenase Total Creatine Kinase CK-MB (CK-2) Rel Index Troponin T C-Reactive Protein Total Protein Albumin LDL Cholesterol Direct HDL Cholesterol Arterial Blood Glucose Urine WBC (Auto) Vancomycin Trough Crossmatch 03/02/20 03/03/20 03/03/20 17:59 00:28 04:52 WBC 13.3 H RBC Hgb 9.9 L Hct 32.2 L MCH 27 L MCHC 31 L RDW 25.8 H Plt Count 67 L Lymph % (Auto) Lymph # (Auto) Seg Neutrophils % Seg Neuts % (Manual) Lymphocytes % (Manual) Monocytes % (Manual) Nucleated RBC % Seg Neutrophils # Seg Neutrophils # Man Lymphocytes # (Manual) Monocytes # (Manual) PT INR D-Dimer ABG pH POC ABG pCO2 POC ABG pO2 ABG pO2 ABG HCO3 ABG O2 Saturation ABG Base Excess ABG Hemoglobin ABG Oxyhemoglobin ABG Sodium ABG Potassium ABG Chloride ABG Glucose Oxyhemoglobin Carboxyhemoglobin Sodium Potassium Chloride Carbon Dioxide BUN Glucose POC Glucose 113 H 114 H Lactic Acid Calcium Ferritin AST ALT Alkaline Phosphatase Lactate Dehydrogenase Total Creatine Kinase CK-MB (CK-2) Rel Index Troponin T C-Reactive Protein Total Protein Albumin LDL Cholesterol Direct HDL Cholesterol Arterial Blood Glucose Urine WBC (Auto) Vancomycin Trough Crossmatch 03/03/20 03/03/20 03/04/20 04:52 18:08 00:27 WBC RBC Hgb Hct MCH MCHC RDW Plt Count Lymph % (Auto) Lymph # (Auto) Seg Neutrophils % Seg Neuts % (Manual) Lymphocytes % (Manual) Monocytes % (Manual) Nucleated RBC % Seg Neutrophils # Seg Neutrophils # Man Lymphocytes # (Manual) Monocytes # (Manual) PT INR D-Dimer ABG pH POC ABG pCO2 POC ABG pO2 ABG pO2 ABG HCO3 ABG O2 Saturation ABG Base Excess ABG Hemoglobin ABG Oxyhemoglobin ABG Sodium ABG Potassium ABG Chloride ABG Glucose Oxyhemoglobin Carboxyhemoglobin Sodium Potassium Chloride 112.7 H Carbon Dioxide 19 L BUN 35 H Glucose POC Glucose 119 H 120 H Lactic Acid Calcium Ferritin AST ALT Alkaline Phosphatase Lactate Dehydrogenase Total Creatine Kinase CK-MB (CK-2) Rel Index Troponin T C-Reactive Protein Total Protein Albumin LDL Cholesterol Direct HDL Cholesterol Arterial Blood Glucose Urine WBC (Auto) Vancomycin Trough Crossmatch 03/04/20 03/04/20 03/04/20 05:52 12:17 16:45 WBC 17.9 H RBC 3.57 L Hgb 9.6 L Hct 32.8 L MCH 27 L MCHC 29 L RDW 26.4 H Plt Count 136 L D Lymph % (Auto) Lymph # (Auto) Seg Neutrophils % Seg Neuts % (Manual) 91.0 H Lymphocytes % (Manual) 6.0 L Monocytes % (Manual) Nucleated RBC % 2.0 H Seg Neutrophils # Seg Neutrophils # Man 16.3 H Lymphocytes # (Manual) 1.1 L Monocytes # (Manual) PT INR D-Dimer ABG pH POC ABG pCO2 POC ABG pO2 ABG pO2 ABG HCO3 ABG O2 Saturation ABG Base Excess ABG Hemoglobin ABG Oxyhemoglobin ABG Sodium ABG Potassium ABG Chloride ABG Glucose Oxyhemoglobin Carboxyhemoglobin Sodium Potassium Chloride Carbon Dioxide BUN Glucose POC Glucose 166 H 187 H Lactic Acid Calcium Ferritin AST ALT Alkaline Phosphatase Lactate Dehydrogenase Total Creatine Kinase CK-MB (CK-2) Rel Index Troponin T C-Reactive Protein Total Protein Albumin LDL Cholesterol Direct HDL Cholesterol Arterial Blood Glucose Urine WBC (Auto) Vancomycin Trough Crossmatch 03/04/20 03/04/20 03/04/20 16:45 18:29 22:44 WBC RBC Hgb Hct MCH MCHC RDW Plt Count Lymph % (Auto) Lymph # (Auto) Seg Neutrophils % Seg Neuts % (Manual) Lymphocytes % (Manual) Monocytes % (Manual) Nucleated RBC % Seg Neutrophils # Seg Neutrophils # Man Lymphocytes # (Manual) Monocytes # (Manual) PT INR D-Dimer ABG pH POC ABG pCO2 POC ABG pO2 ABG pO2 ABG HCO3 ABG O2 Saturation ABG Base Excess ABG Hemoglobin ABG Oxyhemoglobin ABG Sodium ABG Potassium ABG Chloride ABG Glucose Oxyhemoglobin Carboxyhemoglobin Sodium 146 H Potassium Chloride 115.6 H Carbon Dioxide 21 L BUN 39 H Glucose 137 H POC Glucose 147 H 188 H Lactic Acid Calcium Ferritin AST ALT Alkaline Phosphatase 219 H Lactate Dehydrogenase Total Creatine Kinase CK-MB (CK-2) Rel Index Troponin T C-Reactive Protein Total Protein 5.7 L Albumin 1.9 L LDL Cholesterol Direct HDL Cholesterol Arterial Blood Glucose Urine WBC (Auto) Vancomycin Trough Crossmatch 03/05/20 03/05/20 03/05/20 01:05 04:20 04:56 WBC 20.9 H RBC 3.41 L Hgb 9.3 L Hct 30.5 L MCH 27 L MCHC 30 L RDW 26.0 H Plt Count 130 L Lymph % (Auto) Lymph # (Auto) Seg Neutrophils % Seg Neuts % (Manual) Lymphocytes % (Manual) Monocytes % (Manual) Nucleated RBC % Seg Neutrophils # Seg Neutrophils # Man Lymphocytes # (Manual) Monocytes # (Manual) PT INR D-Dimer ABG pH 7.225 L 7.280 L POC ABG pCO2 POC ABG pO2 ABG pO2 178.8 H ABG HCO3 19.8 L ABG O2 Saturation ABG Base Excess -7.3 L -6.3 L ABG Hemoglobin 10.0 L 5.0 L ABG Oxyhemoglobin ABG Sodium ABG Potassium ABG Chloride ABG Glucose Oxyhemoglobin Carboxyhemoglobin Sodium Potassium Chloride Carbon Dioxide BUN Glucose POC Glucose Lactic Acid Calcium Ferritin AST ALT Alkaline Phosphatase Lactate Dehydrogenase Total Creatine Kinase CK-MB (CK-2) Rel Index Troponin T C-Reactive Protein Total Protein Albumin LDL Cholesterol Direct HDL Cholesterol Arterial Blood Glucose Urine WBC (Auto) Vancomycin Trough Crossmatch 03/05/20 03/05/20 03/05/20 04:56 05:29 11:27 WBC RBC Hgb Hct MCH MCHC RDW Plt Count Lymph % (Auto) Lymph # (Auto) Seg Neutrophils % Seg Neuts % (Manual) Lymphocytes % (Manual) Monocytes % (Manual) Nucleated RBC % Seg Neutrophils # Seg Neutrophils # Man Lymphocytes # (Manual) Monocytes # (Manual) PT INR D-Dimer ABG pH POC ABG pCO2 POC ABG pO2 ABG pO2 ABG HCO3 ABG O2 Saturation ABG Base Excess ABG Hemoglobin ABG Oxyhemoglobin ABG Sodium ABG Potassium ABG Chloride ABG Glucose Oxyhemoglobin Carboxyhemoglobin Sodium 149 H Potassium Chloride 116.7 H Carbon Dioxide 19 L BUN 43 H Glucose 156 H POC Glucose 169 H 159 H Lactic Acid Calcium Ferritin AST ALT Alkaline Phosphatase Lactate Dehydrogenase Total Creatine Kinase CK-MB (CK-2) Rel Index Troponin T C-Reactive Protein Total Protein Albumin LDL Cholesterol Direct HDL Cholesterol Arterial Blood Glucose Urine WBC (Auto) Vancomycin Trough Crossmatch 03/05/20 03/05/20 03/06/20 17:56 23:57 04:00 WBC RBC Hgb Hct MCH MCHC RDW Plt Count Lymph % (Auto) Lymph # (Auto) Seg Neutrophils % Seg Neuts % (Manual) Lymphocytes % (Manual) Monocytes % (Manual) Nucleated RBC % Seg Neutrophils # Seg Neutrophils # Man Lymphocytes # (Manual) Monocytes # (Manual) PT INR D-Dimer ABG pH POC ABG pCO2 POC ABG pO2 63.9 L ABG pO2 ABG HCO3 ABG O2 Saturation ABG Base Excess ABG Hemoglobin 9.2 L ABG Oxyhemoglobin 91.6 L ABG Sodium ABG Potassium 3.2 L ABG Chloride 117.0 H ABG Glucose 120 H Oxyhemoglobin Carboxyhemoglobin Sodium Potassium Chloride Carbon Dioxide BUN Glucose POC Glucose 154 H 153 H Lactic Acid Calcium Ferritin AST ALT Alkaline Phosphatase Lactate Dehydrogenase Total Creatine Kinase CK-MB (CK-2) Rel Index Troponin T C-Reactive Protein Total Protein Albumin LDL Cholesterol Direct HDL Cholesterol Arterial Blood Glucose 120 H Urine WBC (Auto) Vancomycin Trough Crossmatch 03/06/20 03/06/20 03/06/20 05:44 12:49 14:00 WBC 12.1 H RBC 3.08 L Hgb 8.4 L Hct 27.0 L MCH 27 L MCHC 31 L RDW 25.6 H Plt Count 83 L Lymph % (Auto) Lymph # (Auto) Seg Neutrophils % Seg Neuts % (Manual) 90.0 H Lymphocytes % (Manual) 3.0 L Monocytes % (Manual) Nucleated RBC % Seg Neutrophils # Seg Neutrophils # Man 10.9 H Lymphocytes # (Manual) 0.4 L Monocytes # (Manual) PT INR D-Dimer ABG pH POC ABG pCO2 POC ABG pO2 ABG pO2 ABG HCO3 ABG O2 Saturation ABG Base Excess ABG Hemoglobin ABG Oxyhemoglobin ABG Sodium ABG Potassium ABG Chloride ABG Glucose Oxyhemoglobin Carboxyhemoglobin Sodium Potassium Chloride Carbon Dioxide BUN Glucose POC Glucose 147 H 128 H Lactic Acid Calcium Ferritin AST ALT Alkaline Phosphatase Lactate Dehydrogenase Total Creatine Kinase CK-MB (CK-2) Rel Index Troponin T C-Reactive Protein Total Protein Albumin LDL Cholesterol Direct HDL Cholesterol Arterial Blood Glucose Urine WBC (Auto) Vancomycin Trough Crossmatch 03/06/20 03/06/20 03/07/20 14:00 18:26 00:17 WBC RBC Hgb Hct MCH MCHC RDW Plt Count Lymph % (Auto) Lymph # (Auto) Seg Neutrophils % Seg Neuts % (Manual) Lymphocytes % (Manual) Monocytes % (Manual) Nucleated RBC % Seg Neutrophils # Seg Neutrophils # Man Lymphocytes # (Manual) Monocytes # (Manual) PT INR D-Dimer ABG pH POC ABG pCO2 POC ABG pO2 ABG pO2 ABG HCO3 ABG O2 Saturation ABG Base Excess ABG Hemoglobin ABG Oxyhemoglobin ABG Sodium ABG Potassium ABG Chloride ABG Glucose Oxyhemoglobin Carboxyhemoglobin Sodium 147 H Potassium 3.0 L D Chloride 114.6 H Carbon Dioxide BUN 36 H Glucose 133 H POC Glucose 124 H 134 H Lactic Acid Calcium 8.0 L Ferritin AST ALT Alkaline Phosphatase Lactate Dehydrogenase Total Creatine Kinase CK-MB (CK-2) Rel Index Troponin T C-Reactive Protein Total Protein Albumin LDL Cholesterol Direct HDL Cholesterol Arterial Blood Glucose Urine WBC (Auto) Vancomycin Trough Crossmatch 03/07/20 03/07/20 03/07/20 05:13 05:13 05:23 WBC 12.5 H RBC 3.48 L Hgb 9.4 L Hct 30.7 L MCH 27 L MCHC 31 L RDW 26.1 H Plt Count 93 L Lymph % (Auto) Lymph # (Auto) Seg Neutrophils % Seg Neuts % (Manual) Lymphocytes % (Manual) Monocytes % (Manual) Nucleated RBC % Seg Neutrophils # Seg Neutrophils # Man Lymphocytes # (Manual) Monocytes # (Manual) PT INR D-Dimer ABG pH POC ABG pCO2 POC ABG pO2 ABG pO2 79.9 L ABG HCO3 ABG O2 Saturation ABG Base Excess ABG Hemoglobin 8.1 L ABG Oxyhemoglobin ABG Sodium ABG Potassium ABG Chloride ABG Glucose Oxyhemoglobin 94.4 L Carboxyhemoglobin Sodium 151 H Potassium Chloride 115.5 H Carbon Dioxide BUN 35 H Glucose 134 H POC Glucose Lactic Acid Calcium 8.3 L Ferritin AST ALT Alkaline Phosphatase Lactate Dehydrogenase Total Creatine Kinase CK-MB (CK-2) Rel Index Troponin T C-Reactive Protein Total Protein Albumin LDL Cholesterol Direct HDL Cholesterol Arterial Blood Glucose Urine WBC (Auto) Vancomycin Trough Crossmatch 03/07/20 03/07/20 03/07/20 05:39 12:18 17:29 WBC RBC Hgb Hct MCH MCHC RDW Plt Count Lymph % (Auto) Lymph # (Auto) Seg Neutrophils % Seg Neuts % (Manual) Lymphocytes % (Manual) Monocytes % (Manual) Nucleated RBC % Seg Neutrophils # Seg Neutrophils # Man Lymphocytes # (Manual) Monocytes # (Manual) PT INR D-Dimer ABG pH POC ABG pCO2 POC ABG pO2 ABG pO2 ABG HCO3 ABG O2 Saturation ABG Base Excess ABG Hemoglobin ABG Oxyhemoglobin ABG Sodium ABG Potassium ABG Chloride ABG Glucose Oxyhemoglobin Carboxyhemoglobin Sodium Potassium Chloride Carbon Dioxide BUN Glucose POC Glucose 146 H 153 H 124 H Lactic Acid Calcium Ferritin AST ALT Alkaline Phosphatase Lactate Dehydrogenase Total Creatine Kinase CK-MB (CK-2) Rel Index Troponin T C-Reactive Protein Total Protein Albumin LDL Cholesterol Direct HDL Cholesterol Arterial Blood Glucose Urine WBC (Auto) Vancomycin Trough Crossmatch 03/07/20 03/08/20 03/08/20 23:49 04:03 11:57 WBC RBC Hgb Hct MCH MCHC RDW Plt Count Lymph % (Auto) Lymph # (Auto) Seg Neutrophils % Seg Neuts % (Manual) Lymphocytes % (Manual) Monocytes % (Manual) Nucleated RBC % Seg Neutrophils # Seg Neutrophils # Man Lymphocytes # (Manual) Monocytes # (Manual) PT INR D-Dimer ABG pH POC ABG pCO2 POC ABG pO2 44.9 L ABG pO2 ABG HCO3 ABG O2 Saturation ABG Base Excess ABG Hemoglobin 10.1 L ABG Oxyhemoglobin ABG Sodium 146.0 H ABG Potassium ABG Chloride 114.0 H ABG Glucose Oxyhemoglobin Carboxyhemoglobin Sodium Potassium Chloride Carbon Dioxide BUN Glucose POC Glucose 139 H 135 H Lactic Acid Calcium Ferritin AST ALT Alkaline Phosphatase Lactate Dehydrogenase Total Creatine Kinase CK-MB (CK-2) Rel Index Troponin T C-Reactive Protein Total Protein Albumin LDL Cholesterol Direct HDL Cholesterol Arterial Blood Glucose Urine WBC (Auto) Vancomycin Trough Crossmatch 03/08/20 03/08/20 03/09/20 17:50 23:50 00:11 WBC RBC 3.17 L Hgb 8.9 L Hct 27.6 L MCH MCHC RDW 26.9 H Plt Count 118 L Lymph % (Auto) Lymph # (Auto) Seg Neutrophils % Seg Neuts % (Manual) 86.0 H Lymphocytes % (Manual) 5.0 L Monocytes % (Manual) 9.0 H Nucleated RBC % Seg Neutrophils # Seg Neutrophils # Man 8.9 H Lymphocytes # (Manual) 0.5 L Monocytes # (Manual) 0.9 H PT INR D-Dimer ABG pH POC ABG pCO2 POC ABG pO2 ABG pO2 ABG HCO3 ABG O2 Saturation ABG Base Excess ABG Hemoglobin ABG Oxyhemoglobin ABG Sodium ABG Potassium ABG Chloride ABG Glucose Oxyhemoglobin Carboxyhemoglobin Sodium Potassium Chloride Carbon Dioxide BUN Glucose POC Glucose 120 H 106 H Lactic Acid Calcium Ferritin AST ALT Alkaline Phosphatase Lactate Dehydrogenase Total Creatine Kinase CK-MB (CK-2) Rel Index Troponin T C-Reactive Protein Total Protein Albumin LDL Cholesterol Direct HDL Cholesterol Arterial Blood Glucose Urine WBC (Auto) Vancomycin Trough Crossmatch 03/09/20 03/09/20 03/09/20 00:11 04:17 11:54 WBC RBC Hgb Hct MCH MCHC RDW Plt Count Lymph % (Auto) Lymph # (Auto) Seg Neutrophils % Seg Neuts % (Manual) Lymphocytes % (Manual) Monocytes % (Manual) Nucleated RBC % Seg Neutrophils # Seg Neutrophils # Man Lymphocytes # (Manual) Monocytes # (Manual) PT INR D-Dimer ABG pH 7.451 H POC ABG pCO2 POC ABG pO2 75.5 L ABG pO2 ABG HCO3 ABG O2 Saturation ABG Base Excess ABG Hemoglobin 9.3 L ABG Oxyhemoglobin ABG Sodium 147.0 H ABG Potassium ABG Chloride 114.0 H ABG Glucose Oxyhemoglobin Carboxyhemoglobin Sodium 151 H Potassium 3.4 L Chloride 111.6 H Carbon Dioxide BUN 34 H Glucose POC Glucose 138 H Lactic Acid Calcium 8.3 L Ferritin AST ALT Alkaline Phosphatase 156 H Lactate Dehydrogenase Total Creatine Kinase CK-MB (CK-2) Rel Index Troponin T C-Reactive Protein Total Protein 5.7 L Albumin 1.8 L LDL Cholesterol Direct HDL Cholesterol Arterial Blood Glucose Urine WBC (Auto) Vancomycin Trough Crossmatch 03/09/20 03/10/20 03/10/20 17:40 00:05 03:50 WBC RBC Hgb Hct MCH MCHC RDW Plt Count Lymph % (Auto) Lymph # (Auto) Seg Neutrophils % Seg Neuts % (Manual) Lymphocytes % (Manual) Monocytes % (Manual) Nucleated RBC % Seg Neutrophils # Seg Neutrophils # Man Lymphocytes # (Manual) Monocytes # (Manual) PT INR D-Dimer ABG pH 7.461 H POC ABG pCO2 POC ABG pO2 ABG pO2 72.5 L ABG HCO3 31.5 H ABG O2 Saturation ABG Base Excess 7.0 H ABG Hemoglobin 7.2 L ABG Oxyhemoglobin ABG Sodium ABG Potassium ABG Chloride ABG Glucose Oxyhemoglobin 94.3 L Carboxyhemoglobin Sodium Potassium Chloride Carbon Dioxide BUN Glucose POC Glucose 116 H 141 H Lactic Acid Calcium Ferritin AST ALT Alkaline Phosphatase Lactate Dehydrogenase Total Creatine Kinase CK-MB (CK-2) Rel Index Troponin T C-Reactive Protein Total Protein Albumin LDL Cholesterol Direct HDL Cholesterol Arterial Blood Glucose Urine WBC (Auto) Vancomycin Trough Crossmatch 03/10/20 03/10/20 03/10/20 04:38 04:38 05:26 WBC RBC Hgb Hct MCH MCHC 30 L RDW 27.6 H Plt Count 113 L Lymph % (Auto) Lymph # (Auto) Seg Neutrophils % Seg Neuts % (Manual) Lymphocytes % (Manual) Monocytes % (Manual) Nucleated RBC % Seg Neutrophils # Seg Neutrophils # Man Lymphocytes # (Manual) Monocytes # (Manual) PT INR D-Dimer ABG pH POC ABG pCO2 POC ABG pO2 ABG pO2 ABG HCO3 ABG O2 Saturation ABG Base Excess ABG Hemoglobin ABG Oxyhemoglobin ABG Sodium ABG Potassium ABG Chloride ABG Glucose Oxyhemoglobin Carboxyhemoglobin Sodium 150 H Potassium Chloride 108.7 H Carbon Dioxide 31 H BUN 35 H Glucose 126 H POC Glucose 157 H Lactic Acid Calcium Ferritin AST 44 H ALT Alkaline Phosphatase 201 H Lactate Dehydrogenase Total Creatine Kinase CK-MB (CK-2) Rel Index Troponin T C-Reactive Protein Total Protein 6.0 L Albumin 2.2 L LDL Cholesterol Direct HDL Cholesterol Arterial Blood Glucose Urine WBC (Auto) Vancomycin Trough Crossmatch 03/10/20 12:09 WBC RBC Hgb Hct MCH MCHC RDW Plt Count Lymph % (Auto) Lymph # (Auto) Seg Neutrophils % Seg Neuts % (Manual) Lymphocytes % (Manual) Monocytes % (Manual) Nucleated RBC % Seg Neutrophils # Seg Neutrophils # Man Lymphocytes # (Manual) Monocytes # (Manual) PT INR D-Dimer ABG pH POC ABG pCO2 POC ABG pO2 ABG pO2 ABG HCO3 ABG O2 Saturation ABG Base Excess ABG Hemoglobin ABG Oxyhemoglobin ABG Sodium ABG Potassium ABG Chloride ABG Glucose Oxyhemoglobin Carboxyhemoglobin Sodium Potassium Chloride Carbon Dioxide BUN Glucose POC Glucose 143 H Lactic Acid Calcium Ferritin AST ALT Alkaline Phosphatase Lactate Dehydrogenase Total Creatine Kinase CK-MB (CK-2) Rel Index Troponin T C-Reactive Protein Total Protein Albumin LDL Cholesterol Direct HDL Cholesterol Arterial Blood Glucose Urine WBC (Auto) Vancomycin Trough Crossmatch
--- NOTE | 2020-03-10 14:10 | Progress Note ---
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 Pepcid PO 20 mg BID AIDEE Administration Fentanyl 50 mcg 03/07/20 10:23 03/10/20 12:35 Sublimaze IV 50 mcg Q2H PRN Administration Pain , Severe (7-10) Furosemide 40 mg 03/03/20 10:00 03/10/20 11:34 Lasix PO 40 mg QDAY AIDEE Administration Glycopyrrolate 1 mg 03/05/20 10:00 03/10/20 11:34 Robinul PO 1 mg BID AIDEE Administration Haloperidol Lactate 5 mg 03/06/20 16:22 Haldol IV Q6HR PRN Anxiety Hydrophilic Ointment 1 applic 03/05/20 01:44 Vaseline Lip Therapy TP Q2HR PRN Dry Lips Dexmedetomidine HCl 200 mcg/ 50 mls @ 2.268 mls/hr 03/01/20 12:00 03/03/20 11:10 Sodium Chloride IV 0 mcg/kg/hr TITRATE AIDEE 0 mls/hr Titration Protocol 0.2 MCG/KG/HR Norepinephrine 4 mg in 250 mls @ 7.5 mls/hr 03/04/20 03:00 03/05/20 13:00 Levophed Drip 4 Mg/Ns 250 Ml IV 0 mcg/min TITR AIDEE 0 mls/hr Titration Protocol 2 MCG/MIN Fentanyl Citrate 2,000 mcg in 100 mls @ 2.268 mls/hr 03/05/20 02:00 Fentanyl Drip Premix IV TITR AIDEE Protocol 1 MCG/KG/HR Isoniazid 300 mg 02/27/20 12:00 03/10/20 11:34 Isoniazid PO 300 mg QDAY AIDEE Administration Lisinopril 2.5 mg 03/03/20 10:00 03/10/20 11:35 Zestril PO 2.5 mg QDAY AIDEE Administration Magnesium Hydroxide 30 ml 02/25/20 04:16 Milk Of Magnesia PO Q4H PRN Constipation Methadone HCl 10 mg 03/02/20 14:00 03/10/20 13:06 Dolophine PO 10 mg Q8HR AIDEE Administration Multi-Ingred Cream/Lotion/Oil/Oint 1 applic 03/05/20 01:44 Artificial Tears Ophth Oint OU Q4HR PRN Dry Eye(s) Ondansetron HCl 4 mg 02/25/20 04:16 Zofran IV Q8H PRN Nausea And Vomiting Pyrazinamide 1,000 mg 02/29/20 10:00 03/10/20 11:32 Pyrazinamide PO 1,000 mg QDAY AIDEE Administration Pyridoxine HCl 50 mg 02/27/20 12:00 03/10/20 11:32 Vitamin B-6 PO 50 mg QDAY AIDEE Administration Rifampin 600 mg 02/27/20 12:00 03/10/20 11:31 Rifadin PO 600 mg QDAY AIDEE Administration Senna/Docusate Sodium 2 tab 03/02/20 10:00 03/10/20 11:36 Senokot S PO 2 tab BID AIDEE Administration Simple Syrup 15 ml 02/27/20 10:25 Simple Syrup FEEDTUBE PRN PRN Hypoglycemia Simple Syrup 30 ml 02/27/20 10:25 Simple Syrup FEEDTUBE PRN PRN Hypoglycemia Sodium Bicarbonate 325 mg 02/27/20 10:25 Sodium Bicarbonate FEEDTUBE PRN PRN For Clogged Feeding Tube Sodium Chloride 10 ml 02/25/20 10:00 03/09/20 22:00 Sodium Chloride Flush Syringe 10 Ml IV Not Given BID AIDEE Sodium Chloride 10 ml 02/25/20 04:16 03/10/20 00:45 Sodium Chloride Flush Syringe 10 Ml IV 10 ml PRN PRN Administration LINE FLUSH Spironolactone 25 mg 03/03/20 10:00 03/10/20 11:33 Aldactone PO 25 mg QDAY AIDEE Administration Nutrition/Malnutrition Assess - Dietary Evaluation Nutrition/Malnutrition Findings: Nutrition Notes Start: 02/25/20 10:14 Freq: Status: Active Protocol: Document 03/07/20 13:09 DAYANARA (Rec: 03/07/20 13:51 DAYANARA [id number]) Co-Sign 03/07/20 13:09 [email or web address] Nutrition Notes Initial or Follow up Reassessment Current Diagnosis Decubitus(Pressure Ulcer), Sepsis,Respiratory Failure Other Pertinent Diagnosis Pneu, UTI, anemia, paraplegia, buttocks PU,Pulmonary TB Current Diet Osmolite 1.5 at 50ml/hr Labs/Tests Na 151 BUN 35 BG 134 Pertinent Medications Vitamin B6 Lasix Height 5 ft 9 in Weight 45.359 kg [place] Body Weight (kg) 72.72 BMI 14.8 Weight Status Underweight Subjective/Other Information F/U for NG replacement and stable TF. TF running at goal rate and pt tolerating. Pt reintubated due to cardiac arrest event. Percent of energy/protein needs met: 94%/100% Burn Absent Trauma Absent Current % PO Negligible Minimum of two criteria Yes Muscle Mass Mild Depletion (non-severe) Fluid Accumulation Moderate to Severe (severe) Reduced [employer] Strength Measurably Reduced (severe) #3 Nutrition Diagnosis Increased nutrient needs ( specify in comment below) Diagnosis Progress(for reassessment Continues documentation) #2 Nutrition Diagnosis Inadequate oral intake Etiology NG tube placed, TF restarted As Evidenced by Signs and Symptoms Pt tolerating TF at goal rate Diagnosis Progress(for reassessment Continues documentation) #1 Nutrition Diagnosis Malnutrition Diagnosis Progress(for reassessment Continues documentation) Is patient on ventilator? Yes Is Patient Ambulatory and/or Out of Bed No REE-([place]-[facility] Jeor-confined to bed) 1592.628 Kcal/Kg value to use for calculation 42 Approximate Energy Requirements Using 1905 kcal/Kg Calculation Used for Recommendations Kcal/kg Additional Notes Protein: 54-91g (1.2-2g/kg) Fluid: 1ml/kcal Nutrition Intervention Change Diet Order: Continue TF Nutrition Support: Osmolite 1.5 at 50ml/hr. Flush 250ml q4h for hypernatremia. Flush 150ml q4h once hypernatremia resolved. Kcal 1,800 Protein (gm) 75 Fluid (mL) 914 Goal #1 TF tolerance Goal #2 Meet at least 100% of energy and protein needs via TF. Goal #3 Wound healing Goal #4 Wt maintenance or wt gain Anticipated Discharge Needs: Unable to determine at this time Follow-Up By: 03/14/20 Additional Comments F/U for stable TF, hypernatremia, plan of care
[2020-03-10] MEDS: HALOPERIDOL LACTATE 5 MG/1 ML INJ IV PRN (19:54)
[2020-03-11 00:19] LABS: Hematocrit 25.9 % (35.5-45.6); Hemoglobin 8.3 gm/dl (11.8-15.2)
[2020-03-11 00:29] LABS: INR 1.17 (0.87-1.13)
[2020-03-11 00:30] LABS: Partial Thromboplastin Time 35.4 Sec. (24.2-36.6)
[2020-03-11] MEDS: HEPARIN/ 0.45% NACL DRIP 25,000 UNIT/500 ML BAG IV SCH (00:54)
--- NOTE | 2020-03-11 01:55 | XRay Report ---
CHEST 1 VIEW INDICATION: follow up respiratory failure. COMPARISON: One day prior. FINDINGS: Support devices: Unchanged. Heart: Stable. Lungs/Pleura: Pulmonary opacities and pleural effusions are stable. No pneumothorax. IMPRESSION: 1. No significant change. Signer Name: Paolo Marsh MD Signed: 03/11/2020 1:50 AM Workstation Name: [id number]
[2020-03-11 02:08] LABS: Alanine Aminotransferase 13 units/L (7-56); Albumin 1.8 g/dL (3.9-5); Blood Urea Nitrogen 32 mg/dL (9-20); Calcium 8.1 mg/dL (8.4-10.2); Hemolysis Index 2
[2020-03-11 02:16] LABS: BUN/Creatinine Ratio 46
[2020-03-11] MEDS: METHADONE 10 MG TAB PO SCH ×3 (06:07→21:08)
--- NOTE | 2020-03-11 07:58 | Progress Note ---
Assessment and Plan 44 y/o male admitted with hypoxemia, fever and brody catheter pain, subsequent cardiac arrest in the ED, resuscitated and intubated, now with hypotension, anion gap metabolic acidosis, acute respiratory failure, hypoglycemia and vtach/vfib, found to have severe left sided heart disease, now with cardiac arrest and re-intubation but awakens off sedation and follows commands. 1. Pulm-Will extubate today. Will given IV lasix this am and hold PO dose. 2. CV-severe systolic heart failure. Cards following. They have added medica tions to the regimen. No invasive measures per them. 3. Heme-Anemia. Etiology unknown. Could be from chronic disease. HIT negative. stable 4. Renal- Function is normal. Dietary to increase free water. Needs more increases 5. Endo-restarted feeds via NG/Dobb laquita tube, dietary to increase free water. 6. 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 Abx therapy stopped. 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 ID follows. 03/10/2020 Long discussion with mother (akil Floyd) and long time significant other (Ms. Zach Roe) via [address] phone call. Good info from the significant other. [facility] did not do biopsy as they wanted to treat the TB first to see if the lytic lesions were related to this. This is why patient was discharged to home without biopsy. Patient was scheduled for follow up CT on Friday but was admitted to [facility] on the prior and has been here ever since. I explained to them that the patient, even if this is cancer, may not be a candidate for much if any therapy given his other comorbid diseases. The family became tearful on the phone but expressed understanding. They wish to see him and I will attempt to work this out with them post extubation tomorrow or Friday. He will be NPO after midnight on Friday and Heparin drip should be stopped at midnight in preparation for biopsy on Friday. Overall prognosis is guarded to Poor. CCT 31 minutes. Subjective Date of service: 03/11/20 Principal diagnosis: Acute respiratory failure Interval history: No acute events. Remains stable on minimal vent settings. Was negative fluid delong on yesterday. Objective Vital Signs - 12hr 03/10/20 03/10/20 03/10/20 20:00 20:30 21:00 Temperature 98.8 F Pulse Rate 78 71 75 Pulse Rate [ 75 From Monitor] Respiratory 22 22 25 H Rate Blood Pressure 116/83 120/82 114/80 O2 Sat by Pulse 98 97 97 Oximetry 03/10/20 03/10/20 03/10/20 21:30 22:00 22:30 Temperature Pulse Rate 75 80 79 Pulse Rate [ From Monitor] Respiratory 22 16 17 Rate Blood Pressure 117/82 119/82 120/85 O2 Sat by Pulse 97 97 96 Oximetry 03/10/20 03/10/20 03/10/20 23:00 23:16 23:30 Temperature Pulse Rate 79 89 65 Pulse Rate [ From Monitor] Respiratory 13 17 Rate Blood Pressure 106/82 106/82 101/72 O2 Sat by Pulse 98 99 97 Oximetry 03/10/20 03/10/20 03/11/20 23:36 23:59 00:00 Temperature 98.7 F Pulse Rate 65 69 Pulse Rate [ From Monitor] Respiratory 20 22 Rate Blood Pressure 101/72 104/74 O2 Sat by Pulse 98 97 Oximetry 03/11/20 03/11/20 03/11/20 00:30 01:00 01:30 Temperature Pulse Rate 65 68 67 Pulse Rate [ From Monitor] Respiratory 21 23 22 Rate Blood Pressure 103/72 108/74 104/71 O2 Sat by Pulse 98 97 97 Oximetry 03/11/20 03/11/20 03/11/20 02:00 02:30 03:00 Temperature Pulse Rate 67 71 76 Pulse Rate [ From Monitor] Respiratory 22 24 24 Rate Blood Pressure 105/70 104/71 104/73 O2 Sat by Pulse 98 97 96 Oximetry 03/11/20 03/11/20 03/11/20 03:30 03:32 03:44 Temperature 98.2 F Pulse Rate 72 74 Pulse Rate [ From Monitor] Respiratory 20 Rate Blood Pressure 109/74 102/72 O2 Sat by Pulse 97 95 Oximetry 03/11/20 03/11/20 03/11/20 04:00 04:30 05:00 Temperature Pulse Rate 74 68 67 Pulse Rate [ 69 From Monitor] Respiratory 18 21 20 Rate Blood Pressure 105/75 105/75 101/70 O2 Sat by Pulse 96 97 97 Oximetry 03/11/20 03/11/20 03/11/20 05:30 06:00 06:30 Temperature Pulse Rate 67 75 68 Pulse Rate [ From Monitor] Respiratory 23 22 21 Rate Blood Pressure 105/71 105/73 111/77 O2 Sat by Pulse 96 96 100 Oximetry 03/11/20 03/11/20 07:00 07:45 Temperature Pulse Rate 67 66 Pulse Rate [ From Monitor] Respiratory 18 Rate Blood Pressure 105/76 113/79 O2 Sat by Pulse 98 99 Oximetry Constitutional: agitated, appears uncomfortable, other (on vent, critically ill) Eyes: icteric, injected ENT: other (orally intubated with poor dentition) Neck: supple, no JVD Effort: mildly labored, other (Tachypneic) Ascultation: Right: rhonchi (upper lobe), Bilateral: rales Percussion: Bilateral: not dull Cardiovascular: other (sinus tach) Gastrointestinal: normoactive bowel sounds, soft Extremities: other (per nursing report, decubitus ulcer) Neurologic: unable to assess CBC and BMP: 03/10/20 23:40 03/11/20 01:07 ABG, PT/INR, D-dimer: ABG ABG pH 7.461 pH Units (7.350-7.450) H 03/10/20 03:50 POC ABG pCO2 43.4 mmHg (32.0-48.0) 03/09/20 04:17 ABG pCO2 45.2 mm Hg 03/10/20 03:50 POC ABG pO2 75.5 mmHg (83-108) L 03/09/20 04:17 ABG pO2 72.5 mm Hg (80.0-90.0) L 03/10/20 03:50 POC ABG HCO3 29.6 03/09/20 04:17 ABG O2 Saturation 96.8 % (95.0-99.0) 03/10/20 03:50 PT/INR, D-dimer PT 15.1 Sec. (12.2-14.9) H 03/10/20 23:40 INR 1.17 (0.87-1.13) H 03/10/20 23:40 D-Dimer 3251.26 ng/mlDDU (0-234) H 02/25/20 03:37 Abnormal lab findings: Abnormal Labs 02/25/20 02/25/20 02/25/20 00:46 00:46 00:46 WBC RBC 3.22 L Hgb 8.9 L Hct 28.5 L MCH MCHC 31 L RDW 24.8 H Plt Count 452 H Lymph % (Auto) 9.1 L Lymph # (Auto) 0.9 L Seg Neutrophils % 86.6 H Seg Neuts % (Manual) Lymphocytes % (Manual) Monocytes % (Manual) Nucleated RBC % Seg Neutrophils # 8.9 H Seg Neutrophils # Man Lymphocytes # (Manual) Monocytes # (Manual) PT INR D-Dimer ABG pH POC ABG pCO2 POC ABG pO2 ABG pO2 ABG HCO3 ABG O2 Saturation ABG Base Excess ABG Hemoglobin ABG Oxyhemoglobin ABG Sodium ABG Potassium ABG Chloride ABG Glucose Oxyhemoglobin Carboxyhemoglobin Sodium Potassium Chloride Carbon Dioxide BUN Creatinine Glucose POC Glucose Lactic Acid 2.10 H* Calcium 8.3 L Ferritin AST ALT < 5 L Alkaline Phosphatase 187 H Lactate Dehydrogenase Total Creatine Kinase 28 L CK-MB (CK-2) Rel Index 8.5 H Troponin T 0.190 H* C-Reactive Protein Total Protein Albumin 2.5 L LDL Cholesterol Direct 45 L HDL Cholesterol 32 L Arterial Blood Glucose Urine WBC (Auto) Vancomycin Trough Crossmatch 02/25/20 02/25/20 02/25/20 02:32 03:37 03:37 WBC RBC Hgb Hct MCH MCHC RDW Plt Count Lymph % (Auto) Lymph # (Auto) Seg Neutrophils % Seg Neuts % (Manual) Lymphocytes % (Manual) Monocytes % (Manual) Nucleated RBC % Seg Neutrophils # Seg Neutrophils # Man Lymphocytes # (Manual) Monocytes # (Manual) PT INR D-Dimer 3251.26 H ABG pH POC ABG pCO2 POC ABG pO2 ABG pO2 ABG HCO3 ABG O2 Saturation ABG Base Excess ABG Hemoglobin ABG Oxyhemoglobin ABG Sodium ABG Potassium ABG Chloride ABG Glucose Oxyhemoglobin Carboxyhemoglobin Sodium Potassium Chloride Carbon Dioxide BUN Creatinine Glucose 144 H POC Glucose Lactic Acid Calcium Ferritin AST ALT Alkaline Phosphatase Lactate Dehydrogenase 234 H Total Creatine Kinase CK-MB (CK-2) Rel Index Troponin T C-Reactive Protein 8.80 H Total Protein Albumin LDL Cholesterol Direct HDL Cholesterol Arterial Blood Glucose Urine WBC (Auto) 68.0 H Vancomycin Trough Crossmatch 02/25/20 02/25/20 02/25/20 03:37 05:36 06:33 WBC RBC Hgb Hct MCH MCHC RDW Plt Count Lymph % (Auto) Lymph # (Auto) Seg Neutrophils % Seg Neuts % (Manual) Lymphocytes % (Manual) Monocytes % (Manual) Nucleated RBC % Seg Neutrophils # Seg Neutrophils # Man Lymphocytes # (Manual) Monocytes # (Manual) PT INR D-Dimer ABG pH POC ABG pCO2 POC ABG pO2 ABG pO2 ABG HCO3 ABG O2 Saturation ABG Base Excess ABG Hemoglobin ABG Oxyhemoglobin ABG Sodium ABG Potassium ABG Chloride ABG Glucose Oxyhemoglobin Carboxyhemoglobin Sodium Potassium Chloride Carbon Dioxide BUN Creatinine Glucose POC Glucose 234 H Lactic Acid Calcium Ferritin 450.5 H AST ALT Alkaline Phosphatase Lactate Dehydrogenase Total Creatine Kinase CK-MB (CK-2) Rel Index Troponin T 0.187 H* C-Reactive Protein Total Protein Albumin LDL Cholesterol Direct HDL Cholesterol Arterial Blood Glucose Urine WBC (Auto) Vancomycin Trough Crossmatch 02/25/20 02/25/20 02/25/20 09:30 13:10 16:27 WBC RBC Hgb Hct MCH MCHC RDW Plt Count Lymph % (Auto) Lymph # (Auto) Seg Neutrophils % Seg Neuts % (Manual) Lymphocytes % (Manual) Monocytes % (Manual) Nucleated RBC % Seg Neutrophils # Seg Neutrophils # Man Lymphocytes # (Manual) Monocytes # (Manual) PT INR D-Dimer ABG pH 7.149 L* 7.256 L POC ABG pCO2 POC ABG pO2 ABG pO2 165.3 H 64.5 L ABG HCO3 17.2 L 17.4 L ABG O2 Saturation 85.2 L ABG Base Excess -11.0 L -9.0 L ABG Hemoglobin 7.5 L 8.4 L ABG Oxyhemoglobin ABG Sodium ABG Potassium ABG Chloride ABG Glucose Oxyhemoglobin 83.4 L Carboxyhemoglobin Sodium Potassium Chloride Carbon Dioxide BUN Creatinine Glucose POC Glucose Lactic Acid 3.20 H* Calcium Ferritin AST ALT Alkaline Phosphatase Lactate Dehydrogenase Total Creatine Kinase CK-MB (CK-2) Rel Index Troponin T C-Reactive Protein Total Protein Albumin LDL Cholesterol Direct HDL Cholesterol Arterial Blood Glucose Urine WBC (Auto) Vancomycin Trough Crossmatch 02/26/20 02/26/20 02/26/20 04:00 04:00 04:00 WBC 20.4 H RBC 2.61 L Hgb 7.0 L Hct 24.5 L MCH 27 L MCHC 29 L RDW 25.1 H Plt Count Lymph % (Auto) Lymph # (Auto) Seg Neutrophils % Seg Neuts % (Manual) 92.0 H Lymphocytes % (Manual) 4.0 L Monocytes % (Manual) Nucleated RBC % Seg Neutrophils # Seg Neutrophils # Man 18.8 H Lymphocytes # (Manual) 0.8 L Monocytes # (Manual) PT 17.9 H INR 1.46 H D-Dimer ABG pH POC ABG pCO2 POC ABG pO2 ABG pO2 ABG HCO3 ABG O2 Saturation ABG Base Excess ABG Hemoglobin ABG Oxyhemoglobin ABG Sodium ABG Potassium ABG Chloride ABG Glucose Oxyhemoglobin Carboxyhemoglobin Sodium Potassium Chloride 111.1 H Carbon Dioxide 14 L D BUN 29 H Creatinine Glucose 57 L POC Glucose Lactic Acid Calcium 7.8 L Ferritin AST ALT Alkaline Phosphatase Lactate Dehydrogenase Total Creatine Kinase CK-MB (CK-2) Rel Index Troponin T C-Reactive Protein Total Protein Albumin LDL Cholesterol Direct HDL Cholesterol Arterial Blood Glucose Urine WBC (Auto) Vancomycin Trough Crossmatch 02/26/20 02/26/20 02/26/20 04:20 07:13 09:20 WBC RBC Hgb Hct MCH MCHC RDW Plt Count Lymph % (Auto) Lymph # (Auto) Seg Neutrophils % Seg Neuts % (Manual) Lymphocytes % (Manual) Monocytes % (Manual) Nucleated RBC % Seg Neutrophils # Seg Neutrophils # Man Lymphocytes # (Manual) Monocytes # (Manual) PT INR D-Dimer ABG pH 7.269 L POC ABG pCO2 POC ABG pO2 ABG pO2 236.1 H ABG HCO3 13.9 L ABG O2 Saturation 99.3 H ABG Base Excess -11.9 L ABG Hemoglobin 7.2 L ABG Oxyhemoglobin ABG Sodium ABG Potassium ABG Chloride ABG Glucose Oxyhemoglobin Carboxyhemoglobin Sodium Potassium Chloride Carbon Dioxide BUN Creatinine Glucose POC Glucose 52 L Lactic Acid Calcium Ferritin AST ALT Alkaline Phosphatase Lactate Dehydrogenase Total Creatine Kinase CK-MB (CK-2) Rel Index Troponin T C-Reactive Protein Total Protein Albumin LDL Cholesterol Direct HDL Cholesterol Arterial Blood Glucose Urine WBC (Auto) Vancomycin Trough Crossmatch See Detail 02/27/20 02/27/20 02/27/20 04:59 05:40 07:30 WBC 16.6 H RBC 3.07 L Hgb 8.4 L Hct 27.4 L MCH MCHC 31 L RDW 24.4 H Plt Count Lymph % (Auto) Lymph # (Auto) Seg Neutrophils % Seg Neuts % (Manual) Lymphocytes % (Manual) Monocytes % (Manual) Nucleated RBC % Seg Neutrophils # Seg Neutrophils # Man Lymphocytes # (Manual) Monocytes # (Manual) PT INR D-Dimer ABG pH 7.306 L POC ABG pCO2 POC ABG pO2 ABG pO2 149.6 H ABG HCO3 17.0 L ABG O2 Saturation ABG Base Excess -8.5 L ABG Hemoglobin 7.8 L ABG Oxyhemoglobin ABG Sodium ABG Potassium ABG Chloride ABG Glucose Oxyhemoglobin Carboxyhemoglobin Sodium Potassium Chloride Carbon Dioxide BUN Creatinine Glucose POC Glucose 64 L Lactic Acid Calcium Ferritin AST ALT Alkaline Phosphatase Lactate Dehydrogenase Total Creatine Kinase CK-MB (CK-2) Rel Index Troponin T C-Reactive Protein Total Protein Albumin LDL Cholesterol Direct HDL Cholesterol Arterial Blood Glucose Urine WBC (Auto) Vancomycin Trough Crossmatch 02/27/20 02/27/20 02/27/20 07:30 12:07 18:07 WBC RBC Hgb Hct MCH MCHC RDW Plt Count Lymph % (Auto) Lymph # (Auto) Seg Neutrophils % Seg Neuts % (Manual) Lymphocytes % (Manual) Monocytes % (Manual) Nucleated RBC % Seg Neutrophils # Seg Neutrophils # Man Lymphocytes # (Manual) Monocytes # (Manual) PT INR D-Dimer ABG pH POC ABG pCO2 POC ABG pO2 ABG pO2 ABG HCO3 ABG O2 Saturation ABG Base Excess ABG Hemoglobin ABG Oxyhemoglobin ABG Sodium ABG Potassium ABG Chloride ABG Glucose Oxyhemoglobin Carboxyhemoglobin Sodium 146 H Potassium Chloride 115.0 H Carbon Dioxide 17 L BUN 29 H Creatinine Glucose 72 L POC Glucose 116 H 63 L Lactic Acid Calcium 7.9 L Ferritin AST 118 H ALT Alkaline Phosphatase 273 H Lactate Dehydrogenase Total Creatine Kinase CK-MB (CK-2) Rel Index Troponin T C-Reactive Protein Total Protein 5.3 L D Albumin 2.0 L LDL Cholesterol Direct HDL Cholesterol Arterial Blood Glucose Urine WBC (Auto) Vancomycin Trough Crossmatch 02/27/20 02/28/20 02/28/20 23:41 04:30 05:30 WBC 12.5 H RBC 2.99 L Hgb 8.0 L Hct 26.6 L MCH 27 L MCHC 30 L RDW 24.8 H Plt Count Lymph % (Auto) 7.5 L Lymph # (Auto) 0.9 L Seg Neutrophils % 86.9 H Seg Neuts % (Manual) Lymphocytes % (Manual) Monocytes % (Manual) Nucleated RBC % Seg Neutrophils # 10.8 H Seg Neutrophils # Man Lymphocytes # (Manual) Monocytes # (Manual) PT INR D-Dimer ABG pH 7.240 L POC ABG pCO2 POC ABG pO2 ABG pO2 ABG HCO3 ABG O2 Saturation ABG Base Excess ABG Hemoglobin 9.0 L ABG Oxyhemoglobin ABG Sodium ABG Potassium ABG Chloride ABG Glucose Oxyhemoglobin Carboxyhemoglobin Sodium Potassium Chloride Carbon Dioxide BUN Creatinine Glucose POC Glucose 131 H Lactic Acid Calcium Ferritin AST ALT Alkaline Phosphatase Lactate Dehydrogenase Total Creatine Kinase CK-MB (CK-2) Rel Index Troponin T C-Reactive Protein Total Protein Albumin LDL Cholesterol Direct HDL Cholesterol Arterial Blood Glucose Urine WBC (Auto) Vancomycin Trough Crossmatch 02/28/20 02/28/20 02/28/20 06:00 09:00 17:25 WBC RBC Hgb Hct MCH MCHC RDW Plt Count Lymph % (Auto) Lymph # (Auto) Seg Neutrophils % Seg Neuts % (Manual) Lymphocytes % (Manual) Monocytes % (Manual) Nucleated RBC % Seg Neutrophils # Seg Neutrophils # Man Lymphocytes # (Manual) Monocytes # (Manual) PT INR D-Dimer ABG pH POC ABG pCO2 POC ABG pO2 ABG pO2 ABG HCO3 ABG O2 Saturation ABG Base Excess ABG Hemoglobin ABG Oxyhemoglobin ABG Sodium ABG Potassium ABG Chloride ABG Glucose Oxyhemoglobin Carboxyhemoglobin Sodium Potassium Chloride Carbon Dioxide BUN Creatinine Glucose POC Glucose 121 H 61 L Lactic Acid Calcium Ferritin AST ALT Alkaline Phosphatase Lactate Dehydrogenase Total Creatine Kinase CK-MB (CK-2) Rel Index Troponin T C-Reactive Protein Total Protein Albumin LDL Cholesterol Direct HDL Cholesterol Arterial Blood Glucose Urine WBC (Auto) Vancomycin Trough 29.0 H Crossmatch 02/28/20 02/29/20 02/29/20 Unknown 04:32 05:17 WBC RBC Hgb Hct MCH MCHC RDW Plt Count Lymph % (Auto) Lymph # (Auto) Seg Neutrophils % Seg Neuts % (Manual) Lymphocytes % (Manual) Monocytes % (Manual) Nucleated RBC % Seg Neutrophils # Seg Neutrophils # Man Lymphocytes # (Manual) Monocytes # (Manual) PT INR D-Dimer ABG pH POC ABG pCO2 22.5 L POC ABG pO2 119.7 H ABG pO2 ABG HCO3 ABG O2 Saturation ABG Base Excess ABG Hemoglobin 10.5 L ABG Oxyhemoglobin ABG Sodium ABG Potassium ABG Chloride ABG Glucose Oxyhemoglobin Carboxyhemoglobin 0.3 L Sodium Potassium Chloride 114.7 H Carbon Dioxide 14 L BUN 30 H Creatinine Glucose POC Glucose Lactic Acid Calcium 7.8 L Ferritin AST 193 H ALT Alkaline Phosphatase 354 H Lactate Dehydrogenase Total Creatine Kinase CK-MB (CK-2) Rel Index Troponin T C-Reactive Protein Total Protein 5.6 L Albumin 2.0 L LDL Cholesterol Direct HDL Cholesterol Arterial Blood Glucose Urine WBC (Auto) Vancomycin Trough Crossmatch 02/29/20 02/29/20 02/29/20 05:29 11:16 11:16 WBC 15.1 H RBC Hgb 10.1 L Hct 32.8 L D MCH 27 L MCHC 31 L RDW 25.2 H Plt Count Lymph % (Auto) Lymph # (Auto) Seg Neutrophils % Seg Neuts % (Manual) 98.0 H Lymphocytes % (Manual) 1.0 L Monocytes % (Manual) Nucleated RBC % 5.0 H Seg Neutrophils # Seg Neutrophils # Man 14.8 H Lymphocytes # (Manual) 0.2 L Monocytes # (Manual) PT INR D-Dimer ABG pH POC ABG pCO2 POC ABG pO2 ABG pO2 ABG HCO3 ABG O2 Saturation ABG Base Excess ABG Hemoglobin ABG Oxyhemoglobin ABG Sodium ABG Potassium ABG Chloride ABG Glucose Oxyhemoglobin Carboxyhemoglobin Sodium Potassium 3.5 L Chloride 111.7 H Carbon Dioxide 14 L BUN 33 H Creatinine Glucose 180 H POC Glucose 125 H Lactic Acid Calcium 7.8 L Ferritin AST ALT Alkaline Phosphatase Lactate Dehydrogenase Total Creatine Kinase CK-MB (CK-2) Rel Index Troponin T C-Reactive Protein Total Protein Albumin LDL Cholesterol Direct HDL Cholesterol Arterial Blood Glucose Urine WBC (Auto) Vancomycin Trough Crossmatch 02/29/20 02/29/20 02/29/20 12:55 17:53 23:38 WBC RBC Hgb Hct MCH MCHC RDW Plt Count Lymph % (Auto) Lymph # (Auto) Seg Neutrophils % Seg Neuts % (Manual) Lymphocytes % (Manual) Monocytes % (Manual) Nucleated RBC % Seg Neutrophils # Seg Neutrophils # Man Lymphocytes # (Manual) Monocytes # (Manual) PT INR D-Dimer ABG pH POC ABG pCO2 POC ABG pO2 ABG pO2 ABG HCO3 ABG O2 Saturation ABG Base Excess ABG Hemoglobin ABG Oxyhemoglobin ABG Sodium ABG Potassium ABG Chloride ABG Glucose Oxyhemoglobin Carboxyhemoglobin Sodium Potassium Chloride Carbon Dioxide BUN Creatinine Glucose POC Glucose 134 H 145 H 127 H Lactic Acid Calcium Ferritin AST ALT Alkaline Phosphatase Lactate Dehydrogenase Total Creatine Kinase CK-MB (CK-2) Rel Index Troponin T C-Reactive Protein Total Protein Albumin LDL Cholesterol Direct HDL Cholesterol Arterial Blood Glucose Urine WBC (Auto) Vancomycin Trough Crossmatch 03/01/20 03/01/20 03/01/20 03:46 05:44 07:55 WBC 14.0 H RBC Hgb 10.0 L Hct 32.3 L MCH 27 L MCHC 31 L RDW 25.4 H Plt Count 99 L Lymph % (Auto) Lymph # (Auto) Seg Neutrophils % Seg Neuts % (Manual) Lymphocytes % (Manual) Monocytes % (Manual) Nucleated RBC % Seg Neutrophils # Seg Neutrophils # Man Lymphocytes # (Manual) Monocytes # (Manual) PT INR D-Dimer ABG pH 7.288 L POC ABG pCO2 POC ABG pO2 ABG pO2 ABG HCO3 11.7 L ABG O2 Saturation ABG Base Excess -13.3 L ABG Hemoglobin ABG Oxyhemoglobin ABG Sodium ABG Potassium ABG Chloride ABG Glucose Oxyhemoglobin Carboxyhemoglobin Sodium Potassium Chloride Carbon Dioxide BUN Creatinine Glucose POC Glucose 177 H Lactic Acid Calcium Ferritin AST ALT Alkaline Phosphatase Lactate Dehydrogenase Total Creatine Kinase CK-MB (CK-2) Rel Index Troponin T C-Reactive Protein Total Protein Albumin LDL Cholesterol Direct HDL Cholesterol Arterial Blood Glucose Urine WBC (Auto) Vancomycin Trough Crossmatch 03/01/20 03/01/20 03/01/20 07:55 12:14 18:07 WBC RBC Hgb Hct MCH MCHC RDW Plt Count Lymph % (Auto) Lymph # (Auto) Seg Neutrophils % Seg Neuts % (Manual) Lymphocytes % (Manual) Monocytes % (Manual) Nucleated RBC % Seg Neutrophils # Seg Neutrophils # Man Lymphocytes # (Manual) Monocytes # (Manual) PT INR D-Dimer ABG pH POC ABG pCO2 POC ABG pO2 ABG pO2 ABG HCO3 ABG O2 Saturation ABG Base Excess ABG Hemoglobin ABG Oxyhemoglobin ABG Sodium ABG Potassium ABG Chloride ABG Glucose Oxyhemoglobin Carboxyhemoglobin Sodium Potassium Chloride 111.5 H Carbon Dioxide 16 L BUN 36 H Creatinine Glucose 157 H POC Glucose 163 H 109 H Lactic Acid Calcium 7.9 L Ferritin AST ALT Alkaline Phosphatase Lactate Dehydrogenase Total Creatine Kinase CK-MB (CK-2) Rel Index Troponin T C-Reactive Protein Total Protein Albumin LDL Cholesterol Direct HDL Cholesterol Arterial Blood Glucose Urine WBC (Auto) Vancomycin Trough Crossmatch 03/01/20 03/02/20 03/02/20 23:55 05:42 12:02 WBC RBC Hgb Hct MCH MCHC RDW Plt Count Lymph % (Auto) Lymph # (Auto) Seg Neutrophils % Seg Neuts % (Manual) Lymphocytes % (Manual) Monocytes % (Manual) Nucleated RBC % Seg Neutrophils # Seg Neutrophils # Man Lymphocytes # (Manual) Monocytes # (Manual) PT INR D-Dimer ABG pH POC ABG pCO2 POC ABG pO2 ABG pO2 ABG HCO3 ABG O2 Saturation ABG Base Excess ABG Hemoglobin ABG Oxyhemoglobin ABG Sodium ABG Potassium ABG Chloride ABG Glucose Oxyhemoglobin Carboxyhemoglobin Sodium Potassium Chloride Carbon Dioxide BUN Creatinine Glucose POC Glucose 132 H 146 H 147 H Lactic Acid Calcium Ferritin AST ALT Alkaline Phosphatase Lactate Dehydrogenase Total Creatine Kinase CK-MB (CK-2) Rel Index Troponin T C-Reactive Protein Total Protein Albumin LDL Cholesterol Direct HDL Cholesterol Arterial Blood Glucose Urine WBC (Auto) Vancomycin Trough Crossmatch 03/02/20 03/03/20 03/03/20 17:59 00:28 04:52 WBC 13.3 H RBC Hgb 9.9 L Hct 32.2 L MCH 27 L MCHC 31 L RDW 25.8 H Plt Count 67 L Lymph % (Auto) Lymph # (Auto) Seg Neutrophils % Seg Neuts % (Manual) Lymphocytes % (Manual) Monocytes % (Manual) Nucleated RBC % Seg Neutrophils # Seg Neutrophils # Man Lymphocytes # (Manual) Monocytes # (Manual) PT INR D-Dimer ABG pH POC ABG pCO2 POC ABG pO2 ABG pO2 ABG HCO3 ABG O2 Saturation ABG Base Excess ABG Hemoglobin ABG Oxyhemoglobin ABG Sodium ABG Potassium ABG Chloride ABG Glucose Oxyhemoglobin Carboxyhemoglobin Sodium Potassium Chloride Carbon Dioxide BUN Creatinine Glucose POC Glucose 113 H 114 H Lactic Acid Calcium Ferritin AST ALT Alkaline Phosphatase Lactate Dehydrogenase Total Creatine Kinase CK-MB (CK-2) Rel Index Troponin T C-Reactive Protein Total Protein Albumin LDL Cholesterol Direct HDL Cholesterol Arterial Blood Glucose Urine WBC (Auto) Vancomycin Trough Crossmatch 03/03/20 03/03/20 03/04/20 04:52 18:08 00:27 WBC RBC Hgb Hct MCH MCHC RDW Plt Count Lymph % (Auto) Lymph # (Auto) Seg Neutrophils % Seg Neuts % (Manual) Lymphocytes % (Manual) Monocytes % (Manual) Nucleated RBC % Seg Neutrophils # Seg Neutrophils # Man Lymphocytes # (Manual) Monocytes # (Manual) PT INR D-Dimer ABG pH POC ABG pCO2 POC ABG pO2 ABG pO2 ABG HCO3 ABG O2 Saturation ABG Base Excess ABG Hemoglobin ABG Oxyhemoglobin ABG Sodium ABG Potassium ABG Chloride ABG Glucose Oxyhemoglobin Carboxyhemoglobin Sodium Potassium Chloride 112.7 H Carbon Dioxide 19 L BUN 35 H Creatinine Glucose POC Glucose 119 H 120 H Lactic Acid Calcium Ferritin AST ALT Alkaline Phosphatase Lactate Dehydrogenase Total Creatine Kinase CK-MB (CK-2) Rel Index Troponin T C-Reactive Protein Total Protein Albumin LDL Cholesterol Direct HDL Cholesterol Arterial Blood Glucose Urine WBC (Auto) Vancomycin Trough Crossmatch 03/04/20 03/04/20 03/04/20 05:52 12:17 16:45 WBC 17.9 H RBC 3.57 L Hgb 9.6 L Hct 32.8 L MCH 27 L MCHC 29 L RDW 26.4 H Plt Count 136 L D Lymph % (Auto) Lymph # (Auto) Seg Neutrophils % Seg Neuts % (Manual) 91.0 H Lymphocytes % (Manual) 6.0 L Monocytes % (Manual) Nucleated RBC % 2.0 H Seg Neutrophils # Seg Neutrophils # Man 16.3 H Lymphocytes # (Manual) 1.1 L Monocytes # (Manual) PT INR D-Dimer ABG pH POC ABG pCO2 POC ABG pO2 ABG pO2 ABG HCO3 ABG O2 Saturation ABG Base Excess ABG Hemoglobin ABG Oxyhemoglobin ABG Sodium ABG Potassium ABG Chloride ABG Glucose Oxyhemoglobin Carboxyhemoglobin Sodium Potassium Chloride Carbon Dioxide BUN Creatinine Glucose POC Glucose 166 H 187 H Lactic Acid Calcium Ferritin AST ALT Alkaline Phosphatase Lactate Dehydrogenase Total Creatine Kinase CK-MB (CK-2) Rel Index Troponin T C-Reactive Protein Total Protein Albumin LDL Cholesterol Direct HDL Cholesterol Arterial Blood Glucose Urine WBC (Auto) Vancomycin Trough Crossmatch 03/04/20 03/04/20 03/04/20 16:45 18:29 22:44 WBC RBC Hgb Hct MCH MCHC RDW Plt Count Lymph % (Auto) Lymph # (Auto) Seg Neutrophils % Seg Neuts % (Manual) Lymphocytes % (Manual) Monocytes % (Manual) Nucleated RBC % Seg Neutrophils # Seg Neutrophils # Man Lymphocytes # (Manual) Monocytes # (Manual) PT INR D-Dimer ABG pH POC ABG pCO2 POC ABG pO2 ABG pO2 ABG HCO3 ABG O2 Saturation ABG Base Excess ABG Hemoglobin ABG Oxyhemoglobin ABG Sodium ABG Potassium ABG Chloride ABG Glucose Oxyhemoglobin Carboxyhemoglobin Sodium 146 H Potassium Chloride 115.6 H Carbon Dioxide 21 L BUN 39 H Creatinine Glucose 137 H POC Glucose 147 H 188 H Lactic Acid Calcium Ferritin AST ALT Alkaline Phosphatase 219 H Lactate Dehydrogenase Total Creatine Kinase CK-MB (CK-2) Rel Index Troponin T C-Reactive Protein Total Protein 5.7 L Albumin 1.9 L LDL Cholesterol Direct HDL Cholesterol Arterial Blood Glucose Urine WBC (Auto) Vancomycin Trough Crossmatch 03/05/20 03/05/20 03/05/20 01:05 04:20 04:56 WBC 20.9 H RBC 3.41 L Hgb 9.3 L Hct 30.5 L MCH 27 L MCHC 30 L RDW 26.0 H Plt Count 130 L Lymph % (Auto) Lymph # (Auto) Seg Neutrophils % Seg Neuts % (Manual) Lymphocytes % (Manual) Monocytes % (Manual) Nucleated RBC % Seg Neutrophils # Seg Neutrophils # Man Lymphocytes # (Manual) Monocytes # (Manual) PT INR D-Dimer ABG pH 7.225 L 7.280 L POC ABG pCO2 POC ABG pO2 ABG pO2 178.8 H ABG HCO3 19.8 L ABG O2 Saturation ABG Base Excess -7.3 L -6.3 L ABG Hemoglobin 10.0 L 5.0 L ABG Oxyhemoglobin ABG Sodium ABG Potassium ABG Chloride ABG Glucose Oxyhemoglobin Carboxyhemoglobin Sodium Potassium Chloride Carbon Dioxide BUN Creatinine Glucose POC Glucose Lactic Acid Calcium Ferritin AST ALT Alkaline Phosphatase Lactate Dehydrogenase Total Creatine Kinase CK-MB (CK-2) Rel Index Troponin T C-Reactive Protein Total Protein Albumin LDL Cholesterol Direct HDL Cholesterol Arterial Blood Glucose Urine WBC (Auto) Vancomycin Trough Crossmatch 03/05/20 03/05/20 03/05/20 04:56 05:29 11:27 WBC RBC Hgb Hct MCH MCHC RDW Plt Count Lymph % (Auto) Lymph # (Auto) Seg Neutrophils % Seg Neuts % (Manual) Lymphocytes % (Manual) Monocytes % (Manual) Nucleated RBC % Seg Neutrophils # Seg Neutrophils # Man Lymphocytes # (Manual) Monocytes # (Manual) PT INR D-Dimer ABG pH POC ABG pCO2 POC ABG pO2 ABG pO2 ABG HCO3 ABG O2 Saturation ABG Base Excess ABG Hemoglobin ABG Oxyhemoglobin ABG Sodium ABG Potassium ABG Chloride ABG Glucose Oxyhemoglobin Carboxyhemoglobin Sodium 149 H Potassium Chloride 116.7 H Carbon Dioxide 19 L BUN 43 H Creatinine Glucose 156 H POC Glucose 169 H 159 H Lactic Acid Calcium Ferritin AST ALT Alkaline Phosphatase Lactate Dehydrogenase Total Creatine Kinase CK-MB (CK-2) Rel Index Troponin T C-Reactive Protein Total Protein Albumin LDL Cholesterol Direct HDL Cholesterol Arterial Blood Glucose Urine WBC (Auto) Vancomycin Trough Crossmatch 03/05/20 03/05/20 03/06/20 17:56 23:57 04:00 WBC RBC Hgb Hct MCH MCHC RDW Plt Count Lymph % (Auto) Lymph # (Auto) Seg Neutrophils % Seg Neuts % (Manual) Lymphocytes % (Manual) Monocytes % (Manual) Nucleated RBC % Seg Neutrophils # Seg Neutrophils # Man Lymphocytes # (Manual) Monocytes # (Manual) PT INR D-Dimer ABG pH POC ABG pCO2 POC ABG pO2 63.9 L ABG pO2 ABG HCO3 ABG O2 Saturation ABG Base Excess ABG Hemoglobin 9.2 L ABG Oxyhemoglobin 91.6 L ABG Sodium ABG Potassium 3.2 L ABG Chloride 117.0 H ABG Glucose 120 H Oxyhemoglobin Carboxyhemoglobin Sodium Potassium Chloride Carbon Dioxide BUN Creatinine Glucose POC Glucose 154 H 153 H Lactic Acid Calcium Ferritin AST ALT Alkaline Phosphatase Lactate Dehydrogenase Total Creatine Kinase CK-MB (CK-2) Rel Index Troponin T C-Reactive Protein Total Protein Albumin LDL Cholesterol Direct HDL Cholesterol Arterial Blood Glucose 120 H Urine WBC (Auto) Vancomycin Trough Crossmatch 03/06/20 03/06/20 03/06/20 05:44 12:49 14:00 WBC 12.1 H RBC 3.08 L Hgb 8.4 L Hct 27.0 L MCH 27 L MCHC 31 L RDW 25.6 H Plt Count 83 L Lymph % (Auto) Lymph # (Auto) Seg Neutrophils % Seg Neuts % (Manual) 90.0 H Lymphocytes % (Manual) 3.0 L Monocytes % (Manual) Nucleated RBC % Seg Neutrophils # Seg Neutrophils # Man 10.9 H Lymphocytes # (Manual) 0.4 L Monocytes # (Manual) PT INR D-Dimer ABG pH POC ABG pCO2 POC ABG pO2 ABG pO2 ABG HCO3 ABG O2 Saturation ABG Base Excess ABG Hemoglobin ABG Oxyhemoglobin ABG Sodium ABG Potassium ABG Chloride ABG Glucose Oxyhemoglobin Carboxyhemoglobin Sodium Potassium Chloride Carbon Dioxide BUN Creatinine Glucose POC Glucose 147 H 128 H Lactic Acid Calcium Ferritin AST ALT Alkaline Phosphatase Lactate Dehydrogenase Total Creatine Kinase CK-MB (CK-2) Rel Index Troponin T C-Reactive Protein Total Protein Albumin LDL Cholesterol Direct HDL Cholesterol Arterial Blood Glucose Urine WBC (Auto) Vancomycin Trough Crossmatch 03/06/20 03/06/20 03/07/20 14:00 18:26 00:17 WBC RBC Hgb Hct MCH MCHC RDW Plt Count Lymph % (Auto) Lymph # (Auto) Seg Neutrophils % Seg Neuts % (Manual) Lymphocytes % (Manual) Monocytes % (Manual) Nucleated RBC % Seg Neutrophils # Seg Neutrophils # Man Lymphocytes # (Manual) Monocytes # (Manual) PT INR D-Dimer ABG pH POC ABG pCO2 POC ABG pO2 ABG pO2 ABG HCO3 ABG O2 Saturation ABG Base Excess ABG Hemoglobin ABG Oxyhemoglobin ABG Sodium ABG Potassium ABG Chloride ABG Glucose Oxyhemoglobin Carboxyhemoglobin Sodium 147 H Potassium 3.0 L D Chloride 114.6 H Carbon Dioxide BUN 36 H Creatinine Glucose 133 H POC Glucose 124 H 134 H Lactic Acid Calcium 8.0 L Ferritin AST ALT Alkaline Phosphatase Lactate Dehydrogenase Total Creatine Kinase CK-MB (CK-2) Rel Index Troponin T C-Reactive Protein Total Protein Albumin LDL Cholesterol Direct HDL Cholesterol Arterial Blood Glucose Urine WBC (Auto) Vancomycin Trough Crossmatch 03/07/20 03/07/20 03/07/20 05:13 05:13 05:23 WBC 12.5 H RBC 3.48 L Hgb 9.4 L Hct 30.7 L MCH 27 L MCHC 31 L RDW 26.1 H Plt Count 93 L Lymph % (Auto) Lymph # (Auto) Seg Neutrophils % Seg Neuts % (Manual) Lymphocytes % (Manual) Monocytes % (Manual) Nucleated RBC % Seg Neutrophils # Seg Neutrophils # Man Lymphocytes # (Manual) Monocytes # (Manual) PT INR D-Dimer ABG pH POC ABG pCO2 POC ABG pO2 ABG pO2 79.9 L ABG HCO3 ABG O2 Saturation ABG Base Excess ABG Hemoglobin 8.1 L ABG Oxyhemoglobin ABG Sodium ABG Potassium ABG Chloride ABG Glucose Oxyhemoglobin 94.4 L Carboxyhemoglobin Sodium 151 H Potassium Chloride 115.5 H Carbon Dioxide BUN 35 H Creatinine Glucose 134 H POC Glucose Lactic Acid Calcium 8.3 L Ferritin AST ALT Alkaline Phosphatase Lactate Dehydrogenase Total Creatine Kinase CK-MB (CK-2) Rel Index Troponin T C-Reactive Protein Total Protein Albumin LDL Cholesterol Direct HDL Cholesterol Arterial Blood Glucose Urine WBC (Auto) Vancomycin Trough Crossmatch 03/07/20 03/07/20 03/07/20 05:39 12:18 17:29 WBC RBC Hgb Hct MCH MCHC RDW Plt Count Lymph % (Auto) Lymph # (Auto) Seg Neutrophils % Seg Neuts % (Manual) Lymphocytes % (Manual) Monocytes % (Manual) Nucleated RBC % Seg Neutrophils # Seg Neutrophils # Man Lymphocytes # (Manual) Monocytes # (Manual) PT INR D-Dimer ABG pH POC ABG pCO2 POC ABG pO2 ABG pO2 ABG HCO3 ABG O2 Saturation ABG Base Excess ABG Hemoglobin ABG Oxyhemoglobin ABG Sodium ABG Potassium ABG Chloride ABG Glucose Oxyhemoglobin Carboxyhemoglobin Sodium Potassium Chloride Carbon Dioxide BUN Creatinine Glucose POC Glucose 146 H 153 H 124 H Lactic Acid Calcium Ferritin AST ALT Alkaline Phosphatase Lactate Dehydrogenase Total Creatine Kinase CK-MB (CK-2) Rel Index Troponin T C-Reactive Protein Total Protein Albumin LDL Cholesterol Direct HDL Cholesterol Arterial Blood Glucose Urine WBC (Auto) Vancomycin Trough Crossmatch 03/07/20 03/08/20 03/08/20 23:49 04:03 11:57 WBC RBC Hgb Hct MCH MCHC RDW Plt Count Lymph % (Auto) Lymph # (Auto) Seg Neutrophils % Seg Neuts % (Manual) Lymphocytes % (Manual) Monocytes % (Manual) Nucleated RBC % Seg Neutrophils # Seg Neutrophils # Man Lymphocytes # (Manual) Monocytes # (Manual) PT INR D-Dimer ABG pH POC ABG pCO2 POC ABG pO2 44.9 L ABG pO2 ABG HCO3 ABG O2 Saturation ABG Base Excess ABG Hemoglobin 10.1 L ABG Oxyhemoglobin ABG Sodium 146.0 H ABG Potassium ABG Chloride 114.0 H ABG Glucose Oxyhemoglobin Carboxyhemoglobin Sodium Potassium Chloride Carbon Dioxide BUN Creatinine Glucose POC Glucose 139 H 135 H Lactic Acid Calcium Ferritin AST ALT Alkaline Phosphatase Lactate Dehydrogenase Total Creatine Kinase CK-MB (CK-2) Rel Index Troponin T C-Reactive Protein Total Protein Albumin LDL Cholesterol Direct HDL Cholesterol Arterial Blood Glucose Urine WBC (Auto) Vancomycin Trough Crossmatch 03/08/20 03/08/20 03/09/20 17:50 23:50 00:11 WBC RBC 3.17 L Hgb 8.9 L Hct 27.6 L MCH MCHC RDW 26.9 H Plt Count 118 L Lymph % (Auto) Lymph # (Auto) Seg Neutrophils % Seg Neuts % (Manual) 86.0 H Lymphocytes % (Manual) 5.0 L Monocytes % (Manual) 9.0 H Nucleated RBC % Seg Neutrophils # Seg Neutrophils # Man 8.9 H Lymphocytes # (Manual) 0.5 L Monocytes # (Manual) 0.9 H PT INR D-Dimer ABG pH POC ABG pCO2 POC ABG pO2 ABG pO2 ABG HCO3 ABG O2 Saturation ABG Base Excess ABG Hemoglobin ABG Oxyhemoglobin ABG Sodium ABG Potassium ABG Chloride ABG Glucose Oxyhemoglobin Carboxyhemoglobin Sodium Potassium Chloride Carbon Dioxide BUN Creatinine Glucose POC Glucose 120 H 106 H Lactic Acid Calcium Ferritin AST ALT Alkaline Phosphatase Lactate Dehydrogenase Total Creatine Kinase CK-MB (CK-2) Rel Index Troponin T C-Reactive Protein Total Protein Albumin LDL Cholesterol Direct HDL Cholesterol Arterial Blood Glucose Urine WBC (Auto) Vancomycin Trough Crossmatch 03/09/20 03/09/20 03/09/20 00:11 04:17 11:54 WBC RBC Hgb Hct MCH MCHC RDW Plt Count Lymph % (Auto) Lymph # (Auto) Seg Neutrophils % Seg Neuts % (Manual) Lymphocytes % (Manual) Monocytes % (Manual) Nucleated RBC % Seg Neutrophils # Seg Neutrophils # Man Lymphocytes # (Manual) Monocytes # (Manual) PT INR D-Dimer ABG pH 7.451 H POC ABG pCO2 POC ABG pO2 75.5 L ABG pO2 ABG HCO3 ABG O2 Saturation ABG Base Excess ABG Hemoglobin 9.3 L ABG Oxyhemoglobin ABG Sodium 147.0 H ABG Potassium ABG Chloride 114.0 H ABG Glucose Oxyhemoglobin Carboxyhemoglobin Sodium 151 H Potassium 3.4 L Chloride 111.6 H Carbon Dioxide BUN 34 H Creatinine Glucose POC Glucose 138 H Lactic Acid Calcium 8.3 L Ferritin AST ALT Alkaline Phosphatase 156 H Lactate Dehydrogenase Total Creatine Kinase CK-MB (CK-2) Rel Index Troponin T C-Reactive Protein Total Protein 5.7 L Albumin 1.8 L LDL Cholesterol Direct HDL Cholesterol Arterial Blood Glucose Urine WBC (Auto) Vancomycin Trough Crossmatch 03/09/20 03/10/20 03/10/20 17:40 00:05 03:50 WBC RBC Hgb Hct MCH MCHC RDW Plt Count Lymph % (Auto) Lymph # (Auto) Seg Neutrophils % Seg Neuts % (Manual) Lymphocytes % (Manual) Monocytes % (Manual) Nucleated RBC % Seg Neutrophils # Seg Neutrophils # Man Lymphocytes # (Manual) Monocytes # (Manual) PT INR D-Dimer ABG pH 7.461 H POC ABG pCO2 POC ABG pO2 ABG pO2 72.5 L ABG HCO3 31.5 H ABG O2 Saturation ABG Base Excess 7.0 H ABG Hemoglobin 7.2 L ABG Oxyhemoglobin ABG Sodium ABG Potassium ABG Chloride ABG Glucose Oxyhemoglobin 94.3 L Carboxyhemoglobin Sodium Potassium Chloride Carbon Dioxide BUN Creatinine Glucose POC Glucose 116 H 141 H Lactic Acid Calcium Ferritin AST ALT Alkaline Phosphatase Lactate Dehydrogenase Total Creatine Kinase CK-MB (CK-2) Rel Index Troponin T C-Reactive Protein Total Protein Albumin LDL Cholesterol Direct HDL Cholesterol Arterial Blood Glucose Urine WBC (Auto) Vancomycin Trough Crossmatch 03/10/20 03/10/20 03/10/20 04:38 04:38 05:26 WBC RBC Hgb Hct MCH MCHC 30 L RDW 27.6 H Plt Count 113 L Lymph % (Auto) Lymph # (Auto) Seg Neutrophils % Seg Neuts % (Manual) Lymphocytes % (Manual) Monocytes % (Manual) Nucleated RBC % Seg Neutrophils # Seg Neutrophils # Man Lymphocytes # (Manual) Monocytes # (Manual) PT INR D-Dimer ABG pH POC ABG pCO2 POC ABG pO2 ABG pO2 ABG HCO3 ABG O2 Saturation ABG Base Excess ABG Hemoglobin ABG Oxyhemoglobin ABG Sodium ABG Potassium ABG Chloride ABG Glucose Oxyhemoglobin Carboxyhemoglobin Sodium 150 H Potassium Chloride 108.7 H Carbon Dioxide 31 H BUN 35 H Creatinine Glucose 126 H POC Glucose 157 H Lactic Acid Calcium Ferritin AST 44 H ALT Alkaline Phosphatase 201 H Lactate Dehydrogenase Total Creatine Kinase CK-MB (CK-2) Rel Index Troponin T C-Reactive Protein Total Protein 6.0 L Albumin 2.2 L LDL Cholesterol Direct HDL Cholesterol Arterial Blood Glucose Urine WBC (Auto) Vancomycin Trough Crossmatch 1003/10/20 03/10/20 12:09 18:07 23:22 WBC RBC Hgb Hct MCH MCHC RDW Plt Count Lymph % (Auto) Lymph # (Auto) Seg Neutrophils % Seg Neuts % (Manual) Lymphocytes % (Manual) Monocytes % (Manual) Nucleated RBC % Seg Neutrophils # Seg Neutrophils # Man Lymphocytes # (Manual) Monocytes # (Manual) PT INR D-Dimer ABG pH POC ABG pCO2 POC ABG pO2 ABG pO2 ABG HCO3 ABG O2 Saturation ABG Base Excess ABG Hemoglobin ABG Oxyhemoglobin ABG Sodium ABG Potassium ABG Chloride ABG Glucose Oxyhemoglobin Carboxyhemoglobin Sodium Potassium Chloride Carbon Dioxide BUN Creatinine Glucose POC Glucose 143 H 129 H 131 H Lactic Acid Calcium Ferritin AST ALT Alkaline Phosphatase Lactate Dehydrogenase Total Creatine Kinase CK-MB (CK-2) Rel Index Troponin T C-Reactive Protein Total Protein Albumin LDL Cholesterol Direct HDL Cholesterol Arterial Blood Glucose Urine WBC (Auto) Vancomycin Trough Crossmatch 03/10/20 03/10/20 03/11/20 23:40 23:40 01:07 WBC RBC Hgb 8.3 L D Hct 25.9 L D MCH MCHC RDW Plt Count 129 L Lymph % (Auto) Lymph # (Auto) Seg Neutrophils % Seg Neuts % (Manual) Lymphocytes % (Manual) Monocytes % (Manual) Nucleated RBC % Seg Neutrophils # Seg Neutrophils # Man Lymphocytes # (Manual) Monocytes # (Manual) PT 15.1 H INR 1.17 H D-Dimer ABG pH POC ABG pCO2 POC ABG pO2 ABG pO2 ABG HCO3 ABG O2 Saturation ABG Base Excess ABG Hemoglobin ABG Oxyhemoglobin ABG Sodium ABG Potassium ABG Chloride ABG Glucose Oxyhemoglobin Carboxyhemoglobin Sodium 153 H Potassium 3.5 L D Chloride 107.5 H Carbon Dioxide 32 H BUN 32 H Creatinine 0.7 L Glucose 128 H POC Glucose Lactic Acid Calcium 8.1 L Ferritin AST ALT Alkaline Phosphatase 147 H Lactate Dehydrogenase Total Creatine Kinase CK-MB (CK-2) Rel Index Troponin T C-Reactive Protein Total Protein 5.5 L Albumin 1.8 L LDL Cholesterol Direct HDL Cholesterol Arterial Blood Glucose Urine WBC (Auto) Vancomycin Trough Crossmatch 03/11/20 05:15 WBC RBC Hgb Hct MCH MCHC RDW Plt Count Lymph % (Auto) Lymph # (Auto) Seg Neutrophils % Seg Neuts % (Manual) Lymphocytes % (Manual) Monocytes % (Manual) Nucleated RBC % Seg Neutrophils # Seg Neutrophils # Man Lymphocytes # (Manual) Monocytes # (Manual) PT INR D-Dimer ABG pH POC ABG pCO2 POC ABG pO2 ABG pO2 ABG HCO3 ABG O2 Saturation ABG Base Excess ABG Hemoglobin ABG Oxyhemoglobin ABG Sodium ABG Potassium ABG Chloride ABG Glucose Oxyhemoglobin Carboxyhemoglobin Sodium Potassium Chloride Carbon Dioxide BUN Creatinine Glucose POC Glucose 141 H Lactic Acid Calcium Ferritin AST ALT Alkaline Phosphatase Lactate Dehydrogenase Total Creatine Kinase CK-MB (CK-2) Rel Index Troponin T C-Reactive Protein Total Protein Albumin LDL Cholesterol Direct HDL Cholesterol Arterial Blood Glucose Urine WBC (Auto) Vancomycin Trough Crossmatch
[2020-03-11] MEDS ORDERED: FUROSEMIDE 40 MG/4 ML INJ IV ONE (08:00)
[2020-03-11] MEDS: fentaNYL 100 MCG/2 ML INJ IV PRN ×6 (09:50→21:06)
--- NOTE | 2020-03-11 09:50 | Progress Note ---
Assessment and Plan - Patient Problems (1) Anemia Current Visit: Yes Status: Acute Qualifiers: Anemia type: unspecified type Qualified Code(s): D64.9 - Anemia, unspecified (2) Atrial fibrillation Current Visit: Yes Status: Acute (3) Cardiorespiratory arrest Current Visit: Yes Status: Acute (4) Dilated cardiomyopathy Current Visit: Yes Status: Acute (5) Paraplegia Current Visit: Yes Status: Acute (6) Pneumonia Current Visit: Yes Status: Acute Qualifiers: Pneumonia type: due to unspecified organism Laterality: bilateral Lung location: unspecified part of lung Qualified Code(s): J18.9 - Pneumonia, unspecified organism Subjective Date of service: 03/11/20 Principal diagnosis: Acute respiratory failure Interval history: EXTUBATED,,,NONVERBAL Objective Vital Signs Temp Pulse Pulse Resp BP Pulse Ox 03/11/20 08:00 97 F L 67 66 22 110/75 100 03/11/20 07:45 66 113/79 99 03/11/20 07:30 68 19 113/79 98 03/11/20 07:00 67 18 105/76 98 03/11/20 06:30 68 21 111/77 100 03/11/20 06:00 75 22 105/73 96 03/11/20 05:30 67 23 105/71 96 03/11/20 05:00 67 20 101/70 97 03/11/20 04:30 68 21 105/75 97 03/11/20 04:00 74 69 18 105/75 96 03/11/20 03:44 74 102/72 95 03/11/20 03:32 98.2 F 03/11/20 03:30 72 20 109/74 97 03/11/20 03:00 76 24 104/73 96 03/11/20 02:30 71 24 104/71 97 03/11/20 02:00 67 22 105/70 98 03/11/20 01:30 67 22 104/71 97 03/11/20 01:00 68 23 108/74 97 03/11/20 00:30 65 21 103/72 98 03/11/20 00:00 69 22 104/74 97 03/10/20 23:59 65 20 101/72 98 03/10/20 23:36 98.7 F 03/10/20 23:30 65 17 101/72 97 03/10/20 23:16 89 106/82 99 10/09/20 23:00 79 13 106/82 98 03/10/20 22:30 79 17 120/85 96 03/10/20 22:00 80 16 119/82 97 03/10/20 21:30 75 22 117/82 97 03/10/20 21:00 75 25 H 114/80 97 03/10/20 20:30 71 22 120/82 97 03/10/20 20:00 98.8 F 78 75 22 116/83 98 03/10/20 19:34 81 121/85 99 03/10/20 19:30 79 24 121/85 98 03/10/20 19:00 79 24 121/85 99 03/10/20 18:30 80 24 119/83 97 03/10/20 18:00 84 23 119/85 96 03/10/20 17:30 89 17 115/86 98 03/10/20 17:00 89 18 119/89 98 03/10/20 16:51 19 03/10/20 16:30 80 23 123/88 97 03/10/20 16:10 97 H 122/88 98 03/10/20 16:00 82 82 26 H 118/86 97 03/10/20 15:30 91 H 25 H 121/89 98 03/10/20 15:00 80 23 114/82 98 03/10/20 14:30 84 21 117/83 98 03/10/20 14:00 85 24 119/88 96 03/10/20 13:30 95 H 14 121/90 96 03/10/20 13:00 90 21 123/89 97 03/10/20 12:30 85 25 H 116/83 98 03/10/20 12:00 98.2 F 85 88 28 H 119/87 99 03/10/20 11:34 92 H 126/91 03/10/20 11:33 936 H 126/91 03/10/20 11:30 94 H 28 H 126/91 99 03/10/20 11:00 97 H 21 126/92 97 03/10/20 10:30 103 H 29 H 134/99 96 03/10/20 10:00 92 H 30 H 133/93 96 - Physical Examination General: Other (ALERT) HEENT: Positive: PERRL Neck: Positive: neck supple Cardiac: Positive: Reg Rate and Rhythm Lungs: Positive: Rhonchi Neuro: Positive: Other (DEFFERED) Abdomen: Positive: Soft Extremities: Present: edema (MILD) - Labs and Meds Cardiac Enzymes 03/11/20 Range/Units 01:07 AST 28 (5-40) units/L Coagulation 03/10/20 Range/Units 23:40 PT 15.1 H (12.2-14.9) Sec. INR 1.17 H (0.87-1.13) APTT 35.4 (24.2-36.6) Sec. CBC 03/10/20 Range/Units 23:40 Hgb 8.3 L D (11.8-15.2) gm/dl Hct 25.9 L D (35.5-45.6) % Plt Count 129 L (140-440) K/mm3 Comprehensive Metabolic Panel 03/11/20 Range/Units 01:07 Sodium 153 H (137-145) mmol/L Potassium 3.5 L D (3.6-5.0) mmol/L Chloride 107.5 H (98-107) mmol/L Carbon Dioxide 32 H (22-30) mmol/L BUN 32 H (9-20) mg/dL Creatinine 0.7 L (0.8-1.3) mg/dL Glucose 128 H (75-100) mg/dL Calcium 8.1 L (8.4-10.2) mg/dL AST 28 (5-40) units/L ALT 13 (7-56) units/L Alkaline Phosphatase 147 H (35-129) units/L Total Protein 5.5 L (6.3-8.2) g/dL Albumin 1.8 L (3.9-5) g/dL - Imaging and Cardiology EKG: report reviewed, image reviewed
[2020-03-11] MEDS: AMIODARONE 200 MG TAB PO SCH (11:30)
[2020-03-11] MEDS: carvediloL 6.25 MG TAB PO SCH ×2 (11:30→21:09)
[2020-03-11] MEDS: GLYCOPYRROLATE 1 MG TAB PO SCH ×2 (11:35→21:09)
[2020-03-11] MEDS: rifAMPin 300 MG CAP PO SCH (11:35)
[2020-03-11] MEDS: PYRAZINAMIDE 500 MG TAB PO SCH (11:36)
[2020-03-11] MEDS: PYRIDOXINE 50 MG TAB PO SCH (11:36)
[2020-03-11] MEDS: SPIRONOLACTONE 25 MG TAB PO SCH (11:36)
[2020-03-11] MEDS: FAMOTIDINE 20 MG TAB PO SCH ×2 (11:36→21:09)
[2020-03-11] MEDS: LISINOPRIL 5 MG TAB PO SCH (11:36)
[2020-03-11] MEDS: ISONIAZID 300 MG TAB PO SCH (11:36)
[2020-03-11] MEDS: SENNOSIDES/DOCUSATE SODIUM 8.6/50 MG TAB PO SCH ×2 (11:37→21:09)
[2020-03-11] MEDS: ETHAMBUTOL 400 MG TAB PO SCH (11:38)
[2020-03-11] MEDS: FUROSEMIDE 40 MG TAB PO SCH ×2 (11:38→12:07)
--- NOTE | 2020-03-11 14:55 | Progress Note ---
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 03/11/20 11:30 Cordarone PO 200 mg QDAY AIDEE Administration Lipase/Protease/Amylase 1 each 02/27/20 10:25 Pancreazhenry Dill 10,500 Unit FEEDTUBE PRN PRN For Clogged Feeding Tube Carvedilol 6.25 mg 03/02/20 22:00 03/11/20 11:30 Coreg PO 6.25 mg BID AIDEE Administration Dextrose 50 ml 02/27/20 07:16 02/27/20 18:18 D50w (25gm) Syringe IV 50 ml PRN PRN Administration Hypoglycemia Protocol Ethambutol HCl 800 mg 02/27/20 12:00 03/11/20 11:38 Myambutol PO 800 mg QDAY AIDEE Administration Famotidine 20 mg 02/28/20 10:00 03/11/20 11:36 Pepcid PO 20 mg BID AIDEE Administration Fentanyl 50 mcg 03/07/20 10:23 03/11/20 14:36 Sublimaze IV 50 mcg Q2H PRN Administration Pain , Severe (7-10) Furosemide 40 mg 03/03/20 10:00 03/11/20 12:07 Lasix PO Not Given QDAY AIDEE Glycopyrrolate 1 mg 03/05/20 10:00 03/11/20 11:35 Robinul PO 1 mg BID AIDEE Administration Haloperidol Lactate 5 mg 03/06/20 16:22 03/10/20 19:54 Haldol IV 5 mg Q6HR PRN Administration Anxiety Hydrophilic Ointment 1 applic 03/05/20 01:44 Vaseline Lip Therapy TP Q2HR PRN Dry Lips Dexmedetomidine HCl 200 mcg/ 50 mls @ 2.268 mls/hr 03/01/20 12:00 03/03/20 11:10 Sodium Chloride IV 0 mcg/kg/hr TITRATE AIDEE 0 mls/hr Titration Protocol 0.2 MCG/KG/HR Norepinephrine 4 mg in 250 mls @ 7.5 mls/hr 03/04/20 03:00 03/05/20 13:00 Levophed Drip 4 Mg/Ns 250 Ml IV 0 mcg/min TITR AIDEE 0 mls/hr Titration Protocol 2 MCG/MIN Fentanyl Citrate 2,000 mcg in 100 mls @ 2.268 mls/hr 03/05/20 02:00 Fentanyl Drip Premix IV TITR AIDEE Protocol 1 MCG/KG/HR Heparin Sodium/Sodium Chloride 25,000 unit in 500 mls @ 14 mls/hr 03/10/20 20:00 03/11/20 08:23 Heparin/ 0.45% Nacl-25,000 Unit/500 Ml IV 850 units/hr TITR AIDEE 17 mls/hr Titration Protocol 700 UNITS/HR Isoniazid 300 mg 02/27/20 12:00 03/11/20 11:36 Isoniazid PO 300 mg QDAY AIDEE Administration Lisinopril 2.5 mg 03/03/20 10:00 03/11/20 11:36 Zestril PO 2.5 mg QDAY AIDEE Administration Magnesium Hydroxide 30 ml 02/25/20 04:16 Milk Of Magnesia PO Q4H PRN Constipation Methadone HCl 10 mg 03/02/20 14:00 03/11/20 13:00 Dolophine PO 10 mg Q8HR AIDEE Administration Multi-Ingred Cream/Lotion/Oil/Oint 1 applic 03/05/20 01:44 Artificial Tears Ophth Oint OU Q4HR PRN Dry Eye(s) Ondansetron HCl 4 mg 02/25/20 04:16 Zofran IV Q8H PRN Nausea And Vomiting Pyrazinamide 1,000 mg 02/29/20 10:00 03/11/20 11:36 Pyrazinamide PO 1,000 mg QDAY AIDEE Administration Pyridoxine HCl 50 mg 02/27/20 12:00 03/11/20 11:36 Vitamin B-6 PO 50 mg QDAY AIDEE Administration Rifampin 600 mg 02/27/20 12:00 03/11/20 11:35 Rifadin PO 600 mg QDAY AIDEE Administration Senna/Docusate Sodium 2 tab 03/02/20 10:00 03/11/20 11:37 Senokot S PO 2 tab BID AIDEE Administration Simple Syrup 15 ml 02/27/20 10:25 Simple Syrup FEEDTUBE PRN PRN Hypoglycemia Simple Syrup 30 ml 02/27/20 10:25 Simple Syrup FEEDTUBE PRN PRN Hypoglycemia Sodium Bicarbonate 325 mg 02/27/20 10:25 Sodium Bicarbonate FEEDTUBE PRN PRN For Clogged Feeding Tube Sodium Chloride 10 ml 02/25/20 10:00 03/11/20 12:06 Sodium Chloride Flush Syringe 10 Ml IV Not Given BID AIDEE Sodium Chloride 10 ml 02/25/20 04:16 03/10/20 00:45 Sodium Chloride Flush Syringe 10 Ml IV 10 ml PRN PRN Administration LINE FLUSH Spironolactone 25 mg 03/03/20 10:00 03/11/20 11:36 Aldactone PO 25 mg QDAY AIDEE Administration Nutrition/Malnutrition Assess - Dietary Evaluation Nutrition/Malnutrition Findings: Nutrition Notes Start: 02/25/20 10:14 Freq: Status: Active Protocol: Document 03/07/20 13:09 DAYANARA (Rec: 03/07/20 13:51 DAYANARA [id number]) Co-Sign 10/06/20 13:09 MK Nutrition Notes Initial or Follow up Reassessment Current Diagnosis Decubitus(Pressure Ulcer), Sepsis,Respiratory Failure Other Pertinent Diagnosis Pneu, UTI, anemia, paraplegia, buttocks PU,Pulmonary TB Current Diet Osmolite 1.5 at 50ml/hr Labs/Tests Na 151 BUN 35 BG 134 Pertinent Medications Vitamin B6 Lasix Height 5 ft 9 in Weight 45.359 kg [place] Body Weight (kg) 72.72 BMI 14.8 Weight Status Underweight Subjective/Other Information F/U for NG replacement and stable TF. TF running at goal rate and pt tolerating. Pt reintubated due to cardiac arrest event. Percent of energy/protein needs met: 94%/100% Burn Absent Trauma Absent Current % PO Negligible Minimum of two criteria Yes Muscle Mass Mild Depletion (non-severe) Fluid Accumulation Moderate to Severe (severe) Reduced [employer] Strength Measurably Reduced (severe) #3 Nutrition Diagnosis Increased nutrient needs ( specify in comment below) Diagnosis Progress(for reassessment Continues documentation) #2 Nutrition Diagnosis Inadequate oral intake Etiology NG tube placed, TF restarted As Evidenced by Signs and Symptoms Pt tolerating TF at goal rate Diagnosis Progress(for reassessment Continues documentation) #1 Nutrition Diagnosis Malnutrition Diagnosis Progress(for reassessment Continues documentation) Is patient on ventilator? Yes Is Patient Ambulatory and/or Out of Bed No REE-([facility]-confined to bed) 1592.628 Kcal/Kg value to use for calculation 42 Approximate Energy Requirements Using 1905 kcal/Kg Calculation Used for Recommendations Kcal/kg Additional Notes Protein: 54-91g (1.2-2g/kg) Fluid: 1ml/kcal Nutrition Intervention Change Diet Order: Continue TF Nutrition Support: Osmolite 1.5 at 50ml/hr. Flush 250ml q4h for hypernatremia. Flush 150ml q4h once hypernatremia resolved. Kcal 1,800 Protein (gm) 75 Fluid (mL) 914 Goal #1 TF tolerance Goal #2 Meet at least 100% of energy and protein needs via TF. Goal #3 Wound healing Goal #4 Wt maintenance or wt gain Anticipated Discharge Needs: Unable to determine at this time Follow-Up By: 03/14/20 Additional Comments F/U for stable TF, hypernatremia, plan of care
[2020-03-11] MEDS: HALOPERIDOL LACTATE 5 MG/1 ML INJ IV PRN (17:05)
[2020-03-12] MEDS: fentaNYL 100 MCG/2 ML INJ IV PRN ×3 (01:13→10:27)
[2020-03-12 01:23] LABS: Hematocrit 29.8 % (35.5-45.6); Hemoglobin 9.3 gm/dl (11.8-15.2); Mean Corpuscular HGB Conc 31 % (32-34); Mean Corpuscular Volume 88 fl (84-94); Platelet Count 157 K/mm3 (140-440); Red Blood Count 3.41 M/mm3 (3.65-5.03)
[2020-03-12 01:27] LABS: Red Cell Distribution Width 26.3 % (13.2-15.2)
[2020-03-12 01:44] LABS: Alanine Aminotransferase 15 units/L (7-56); Albumin 1.7 g/dL (3.9-5); BUN/Creatinine Ratio 48; Blood Urea Nitrogen 29 mg/dL (9-20); Calcium 8.3 mg/dL (8.4-10.2); Hemolysis Index 9
[2020-03-12] MEDS ORDERED: HEPARIN 10,000 UNITS/10 ML VIAL IV ONE ×2 (02:39→18:12)
[2020-03-12] MEDS: HEPARIN/ 0.45% NACL DRIP 25,000 UNIT/500 ML BAG IV SCH (02:47)
[2020-03-12 04:12] LABS: Basophils % (Manual) 0 % (0.0-1.8); Eosinophils % (Manual) 0 % (0.0-4.3); Total Cells Counted 100
[2020-03-12 04:13] LABS: Anisocytosis 1+; Platelet Estimate Consistent w Auto
[2020-03-12] MEDS: METHADONE 10 MG TAB PO SCH ×3 (06:02→21:44)
[2020-03-12 06:16] LABS: Hematocrit 33.4 % (35.5-45.6); Hemoglobin 10.2 gm/dl (11.8-15.2)
[2020-03-12] MEDS: FUROSEMIDE 40 MG/4 ML INJ IV SCH ×2 (08:37→21:44)
[2020-03-12] MEDS: LISINOPRIL 5 MG TAB PO SCH (09:23)
[2020-03-12] MEDS: carvediloL 6.25 MG TAB PO SCH ×2 (09:23→22:01)
[2020-03-12] MEDS: ISONIAZID 300 MG TAB PO SCH (09:24)
[2020-03-12] MEDS: rifAMPin 300 MG CAP PO SCH (09:24)
[2020-03-12] MEDS: GLYCOPYRROLATE 1 MG TAB PO SCH ×2 (09:24→21:44)
[2020-03-12] MEDS: FAMOTIDINE 20 MG TAB PO SCH ×2 (09:24→21:44)
[2020-03-12] MEDS: PYRAZINAMIDE 500 MG TAB PO SCH (09:24)
[2020-03-12] MEDS: SENNOSIDES/DOCUSATE SODIUM 8.6/50 MG TAB PO SCH ×2 (09:25→21:44)
[2020-03-12] MEDS: AMIODARONE 200 MG TAB PO SCH (09:25)
[2020-03-12] MEDS: SPIRONOLACTONE 25 MG TAB PO SCH (09:25)
[2020-03-12] MEDS: ETHAMBUTOL 400 MG TAB PO SCH (09:25)
--- NOTE | 2020-03-12 10:08 | XRay Report ---
CHEST 1 VIEW 03/12/2020 8:57 AM INDICATION / CLINICAL INFORMATION: follow up respiratory failure. COMPARISON: 03/11/2020. FINDINGS: SUPPORT DEVICES: Unchanged. HEART / MEDIASTINUM: Stable. LUNGS / PLEURA: Severe bilateral pulmonary opacities are relatively stable to slightly worsened in th e right lung. Bilateral pleural effusions are unchanged. No pneumothorax. ADDITIONAL FINDINGS: No significant additional findings. IMPRESSION: 1. Stable to slightly worsened cardiopulmonary appearances. Signer Name: Mauricio Valladares MD Signed: 03/12/2020 10:03 AM Workstation Name: [id number]
--- NOTE | 2020-03-12 10:24 | Progress Note ---
Assessment and Plan 44 y/o male admitted with hypoxemia, fever and brody catheter pain, subsequent cardiac arrest in the ED, resuscitated and intubated, now with hypotension, anion gap metabolic acidosis, acute respiratory failure, hypoglycemia and vtach/vfib, found to have severe left sided heart disease, now with cardiac arrest and re-intubation but awakens off sedation and follows commands. 1. Pulm-Most likely will electively intubate patient today. Recieved some IV lasix so will give about an hour to see how he does. If rate can clm down and w e can wean fiO2 will continue bipap but i suspect this will not work. Patient has very severe systolic heart failure and once the afterload reduction is taken away from the vent, he decompensates. This time more rapid than before. Explained this to superintendent container terminal significant other and she understands and suspected it would happen again. They did get a chance to see him on yesterday. 2. CV-severe systolic heart failure. Cards following. They have added medications to the regimen. No invasive measures per them. Still needs better afterload reduction as he decompensated quickly off of positive pressure. 3. Heme-Anemia. Etiology unknown. Could be from chronic disease. HIT negative. stable 4. Renal- Function is normal. Dietary to increase free water. Needs more increases 5. Endo-restarted feeds via NG/Dobb laquita tube, dietary to increase free water. 6. 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 Abx therapy stopped. 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 ID follows. 03/12/2020 Called longterm significant other, and mother and spoke to significant others sister over the phone at their request. Explained that patient cannot maintain his current respiratory status without support. They understand. I have also suggest a family meeting to discuss [facility] care and what the potential next steps could be. Tough without a diagnosis but with his heart failure alone, seems like he would be a candidate for hospice but will ask Cardiology their opinion on this. Will arrange a time with CM so that we can speak with family over the phone, hopefully early in the week. Overall prognosis is very very poor. 03/10/2020 Long discussion with mother (akil Floyd) and long time significant other (Ms. Zach Roe) via 3 way phone call. Good info from the significant other. Isael did not do biopsy as they wanted to treat the TB first to see if the lytic lesions were related to this. This is why patient was discharged to home without biopsy. Patient was scheduled for follow up CT on Friday but was admitted to [facility] on the prior and has been here ever since. I explained to them that the patient, even if this is cancer, may not be a candidate for much if any therapy given his other comorbid diseases. The family became tearful on the phone but expressed understanding. They wish to see him and I will attempt to work this out with them post extubation tomorrow or Friday. He will be NPO after midnight on Friday and Heparin drip should be stopped at midnight in preparation for biopsy on Friday. Overall prognosis is guarded to Poor. CCT 31 minutes. Subjective Date of service: 03/12/20 Principal diagnosis: Acute respiratory failure Interval history: Pulm status is worsening overnight and this am. Spoke with longterm significant other over the phone and she is going to update the mother. Patient is awake but not as alert as before. Breathing in the 40's with a sat of 98 but on bipap 20/8 and 95%. Remainder is negative. Objective Vital Signs - 12hr 03/11/20 03/11/20 03/11/20 22:30 23:00 23:17 Temperature Pulse Rate 79 85 89 Pulse Rate [ From Monitor] Respiratory 27 H 33 H 34 H Rate Blood Pressure 125/89 126/96 136/100 O2 Sat by Pulse 92 88 87 Oximetry 03/11/20 03/11/20 03/12/20 23:30 23:56 00:00 Temperature 98.8 F Pulse Rate 80 110 H Pulse Rate [ 94 H From Monitor] Respiratory 30 H 21 Rate Blood Pressure 136/95 145/101 O2 Sat by Pulse 90 98 Oximetry 03/12/20 03/12/20 03/12/20 00:30 01:00 01:30 Temperature Pulse Rate 88 99 H 75 Pulse Rate [ From Monitor] Respiratory 36 H 35 H 32 H Rate Blood Pressure 139/100 144/103 149/100 O2 Sat by Pulse 89 90 79 L Oximetry 03/12/20 03/12/20 03/12/20 01:41 02:00 02:30 Temperature Pulse Rate 103 H 102 H 77 Pulse Rate [ From Monitor] Respiratory 45 H 38 H 34 H Rate Blood Pressure 149/100 136/102 139/104 O2 Sat by Pulse 92 93 63 L Oximetry 03/12/20 03/12/20 03/12/20 03:00 03:30 03:36 Temperature 98.9 F Pulse Rate 110 H 107 H Pulse Rate [ From Monitor] Respiratory 46 H 41 H Rate Blood Pressure 135/100 127/99 O2 Sat by Pulse 88 90 Oximetry 03/12/20 03/12/20 03/12/20 04:00 04:30 05:00 Temperature Pulse Rate 100 H 100 H 111 H Pulse Rate [ 100 H From Monitor] Respiratory 37 H 40 H 31 H Rate Blood Pressure 122/93 135/93 127/97 O2 Sat by Pulse 90 92 94 Oximetry 03/12/20 03/12/20 03/12/20 05:30 06:00 06:30 Temperature Pulse Rate 106 H 108 H 84 Pulse Rate [ From Monitor] Respiratory 44 H 41 H 45 H Rate Blood Pressure 133/97 140/100 137/98 O2 Sat by Pulse 94 92 89 Oximetry 03/12/20 03/12/20 03/12/20 07:01 07:30 08:00 Temperature Pulse Rate 87 99 H 84 Pulse Rate [ 120 H From Monitor] Respiratory 40 H 40 H 44 H Rate Blood Pressure 152/108 152/106 143/105 O2 Sat by Pulse 89 87 87 Oximetry 03/12/20 03/12/20 03/12/20 08:48 09:23 09:25 Temperature Pulse Rate 100 H 116 H 118 H Pulse Rate [ From Monitor] Respiratory 40 H Rate Blood Pressure 127/102 139/102 139/102 O2 Sat by Pulse 95 Oximetry Constitutional: agitated, appears uncomfortable, other (on vent, critically ill) Eyes: icteric, injected ENT: other (orally intubated with poor dentition) Neck: supple, no JVD Effort: mildly labored, other (Tachypneic) Ascultation: Right: rhonchi (upper lobe), Bilateral: rales Percussion: Bilateral: not dull Cardiovascular: other (sinus tach) Gastrointestinal: normoactive bowel sounds, soft Extremities: other (per nursing report, decubitus ulcer) Neurologic: unable to assess CBC and BMP: 03/12/20 04:27 03/12/20 00:57 ABG, PT/INR, D-dimer: ABG ABG pH 7.461 pH Units (7.350-7.450) H 03/10/20 03:50 POC ABG pCO2 43.4 mmHg (32.0-48.0) 03/09/20 04:17 ABG pCO2 45.2 mm Hg 03/10/20 03:50 POC ABG pO2 75.5 mmHg (83-108) L 03/09/20 04:17 ABG pO2 72.5 mm Hg (80.0-90.0) L 03/10/20 03:50 POC ABG HCO3 29.6 03/09/20 04:17 ABG O2 Saturation 96.8 % (95.0-99.0) 03/10/20 03:50 PT/INR, D-dimer PT 15.1 Sec. (12.2-14.9) H 03/10/20 23:40 INR 1.17 (0.87-1.13) H 03/10/20 23:40 D-Dimer 3251.26 ng/mlDDU (0-234) H 02/25/20 03:37 Abnormal lab findings: Abnormal Labs 02/25/20 02/25/20 02/25/20 00:46 00:46 00:46 WBC RBC 3.22 L Hgb 8.9 L Hct 28.5 L MCH MCHC 31 L RDW 24.8 H Plt Count 452 H Lymph % (Auto) 9.1 L Lymph # (Auto) 0.9 L Seg Neutrophils % 86.6 H Seg Neuts % (Manual) Lymphocytes % (Manual) Monocytes % (Manual) Nucleated RBC % Seg Neutrophils # 8.9 H Seg Neutrophils # Man Lymphocytes # (Manual) Monocytes # (Manual) PT INR D-Dimer Heparin Anti-Xa Level ABG pH POC ABG pCO2 POC ABG pO2 ABG pO2 ABG HCO3 ABG O2 Saturation ABG Base Excess ABG Hemoglobin ABG Oxyhemoglobin ABG Sodium ABG Potassium ABG Chloride ABG Glucose Oxyhemoglobin Carboxyhemoglobin Sodium Potassium Chloride Carbon Dioxide BUN Creatinine Glucose POC Glucose Lactic Acid 2.10 H* Calcium 8.3 L Ferritin AST ALT < 5 L Alkaline Phosphatase 187 H Lactate Dehydrogenase Total Creatine Kinase 28 L CK-MB (CK-2) Rel Index 8.5 H Troponin T 0.190 H* C-Reactive Protein Total Protein Albumin 2.5 L LDL Cholesterol Direct 45 L HDL Cholesterol 32 L Arterial Blood Glucose Urine WBC (Auto) Vancomycin Trough Crossmatch 09/25/20 09/25/20 09/25/20 02:32 03:37 03:37 WBC RBC Hgb Hct MCH MCHC RDW Plt Count Lymph % (Auto) Lymph # (Auto) Seg Neutrophils % Seg Neuts % (Manual) Lymphocytes % (Manual) Monocytes % (Manual) Nucleated RBC % Seg Neutrophils # Seg Neutrophils # Man Lymphocytes # (Manual) Monocytes # (Manual) PT INR D-Dimer 3251.26 H Heparin Anti-Xa Level ABG pH POC ABG pCO2 POC ABG pO2 ABG pO2 ABG HCO3 ABG O2 Saturation ABG Base Excess ABG Hemoglobin ABG Oxyhemoglobin ABG Sodium ABG Potassium ABG Chloride ABG Glucose Oxyhemoglobin Carboxyhemoglobin Sodium Potassium Chloride Carbon Dioxide BUN Creatinine Glucose 144 H POC Glucose Lactic Acid Calcium Ferritin AST ALT Alkaline Phosphatase Lactate Dehydrogenase 234 H Total Creatine Kinase CK-MB (CK-2) Rel Index Troponin T C-Reactive Protein 8.80 H Total Protein Albumin LDL Cholesterol Direct HDL Cholesterol Arterial Blood Glucose Urine WBC (Auto) 68.0 H Vancomycin Trough Crossmatch 02/25/20 02/25/20 02/25/20 03:37 05:36 06:33 WBC RBC Hgb Hct MCH MCHC RDW Plt Count Lymph % (Auto) Lymph # (Auto) Seg Neutrophils % Seg Neuts % (Manual) Lymphocytes % (Manual) Monocytes % (Manual) Nucleated RBC % Seg Neutrophils # Seg Neutrophils # Man Lymphocytes # (Manual) Monocytes # (Manual) PT INR D-Dimer Heparin Anti-Xa Level ABG pH POC ABG pCO2 POC ABG pO2 ABG pO2 ABG HCO3 ABG O2 Saturation ABG Base Excess ABG Hemoglobin ABG Oxyhemoglobin ABG Sodium ABG Potassium ABG Chloride ABG Glucose Oxyhemoglobin Carboxyhemoglobin Sodium Potassium Chloride Carbon Dioxide BUN Creatinine Glucose POC Glucose 234 H Lactic Acid Calcium Ferritin 450.5 H AST ALT Alkaline Phosphatase Lactate Dehydrogenase Total Creatine Kinase CK-MB (CK-2) Rel Index Troponin T 0.187 H* C-Reactive Protein Total Protein Albumin LDL Cholesterol Direct HDL Cholesterol Arterial Blood Glucose Urine WBC (Auto) Vancomycin Trough Crossmatch 02/25/20 02/25/20 02/25/20 09:30 13:10 16:27 WBC RBC Hgb Hct MCH MCHC RDW Plt Count Lymph % (Auto) Lymph # (Auto) Seg Neutrophils % Seg Neuts % (Manual) Lymphocytes % (Manual) Monocytes % (Manual) Nucleated RBC % Seg Neutrophils # Seg Neutrophils # Man Lymphocytes # (Manual) Monocytes # (Manual) PT INR D-Dimer Heparin Anti-Xa Level ABG pH 7.149 L* 7.256 L POC ABG pCO2 POC ABG pO2 ABG pO2 165.3 H 64.5 L ABG HCO3 17.2 L 17.4 L ABG O2 Saturation 85.2 L ABG Base Excess -11.0 L -9.0 L ABG Hemoglobin 7.5 L 8.4 L ABG Oxyhemoglobin ABG Sodium ABG Potassium ABG Chloride ABG Glucose Oxyhemoglobin 83.4 L Carboxyhemoglobin Sodium Potassium Chloride Carbon Dioxide BUN Creatinine Glucose POC Glucose Lactic Acid 3.20 H* Calcium Ferritin AST ALT Alkaline Phosphatase Lactate Dehydrogenase Total Creatine Kinase CK-MB (CK-2) Rel Index Troponin T C-Reactive Protein Total Protein Albumin LDL Cholesterol Direct HDL Cholesterol Arterial Blood Glucose Urine WBC (Auto) Vancomycin Trough Crossmatch 02/26/20 02/26/20 02/26/20 04:00 04:00 04:00 WBC 20.4 H RBC 2.61 L Hgb 7.0 L Hct 24.5 L MCH 27 L MCHC 29 L RDW 25.1 H Plt Count Lymph % (Auto) Lymph # (Auto) Seg Neutrophils % Seg Neuts % (Manual) 92.0 H Lymphocytes % (Manual) 4.0 L Monocytes % (Manual) Nucleated RBC % Seg Neutrophils # Seg Neutrophils # Man 18.8 H Lymphocytes # (Manual) 0.8 L Monocytes # (Manual) PT 17.9 H INR 1.46 H D-Dimer Heparin Anti-Xa Level ABG pH POC ABG pCO2 POC ABG pO2 ABG pO2 ABG HCO3 ABG O2 Saturation ABG Base Excess ABG Hemoglobin ABG Oxyhemoglobin ABG Sodium ABG Potassium ABG Chloride ABG Glucose Oxyhemoglobin Carboxyhemoglobin Sodium Potassium Chloride 111.1 H Carbon Dioxide 14 L D BUN 29 H Creatinine Glucose 57 L POC Glucose Lactic Acid Calcium 7.8 L Ferritin AST ALT Alkaline Phosphatase Lactate Dehydrogenase Total Creatine Kinase CK-MB (CK-2) Rel Index Troponin T C-Reactive Protein Total Protein Albumin LDL Cholesterol Direct HDL Cholesterol Arterial Blood Glucose Urine WBC (Auto) Vancomycin Trough Crossmatch 02/26/20 02/26/20 02/26/20 04:20 07:13 09:20 WBC RBC Hgb Hct MCH MCHC RDW Plt Count Lymph % (Auto) Lymph # (Auto) Seg Neutrophils % Seg Neuts % (Manual) Lymphocytes % (Manual) Monocytes % (Manual) Nucleated RBC % Seg Neutrophils # Seg Neutrophils # Man Lymphocytes # (Manual) Monocytes # (Manual) PT INR D-Dimer Heparin Anti-Xa Level ABG pH 7.269 L POC ABG pCO2 POC ABG pO2 ABG pO2 236.1 H ABG HCO3 13.9 L ABG O2 Saturation 99.3 H ABG Base Excess -11.9 L ABG Hemoglobin 7.2 L ABG Oxyhemoglobin ABG Sodium ABG Potassium ABG Chloride ABG Glucose Oxyhemoglobin Carboxyhemoglobin Sodium Potassium Chloride Carbon Dioxide BUN Creatinine Glucose POC Glucose 52 L Lactic Acid Calcium Ferritin AST ALT Alkaline Phosphatase Lactate Dehydrogenase Total Creatine Kinase CK-MB (CK-2) Rel Index Troponin T C-Reactive Protein Total Protein Albumin LDL Cholesterol Direct HDL Cholesterol Arterial Blood Glucose Urine WBC (Auto) Vancomycin Trough Crossmatch See Detail 02/27/20 02/27/20 02/27/20 04:59 05:40 07:30 WBC 16.6 H RBC 3.07 L Hgb 8.4 L Hct 27.4 L MCH MCHC 31 L RDW 24.4 H Plt Count Lymph % (Auto) Lymph # (Auto) Seg Neutrophils % Seg Neuts % (Manual) Lymphocytes % (Manual) Monocytes % (Manual) Nucleated RBC % Seg Neutrophils # Seg Neutrophils # Man Lymphocytes # (Manual) Monocytes # (Manual) PT INR D-Dimer Heparin Anti-Xa Level ABG pH 7.306 L POC ABG pCO2 POC ABG pO2 ABG pO2 149.6 H ABG HCO3 17.0 L ABG O2 Saturation ABG Base Excess -8.5 L ABG Hemoglobin 7.8 L ABG Oxyhemoglobin ABG Sodium ABG Potassium ABG Chloride ABG Glucose Oxyhemoglobin Carboxyhemoglobin Sodium Potassium Chloride Carbon Dioxide BUN Creatinine Glucose POC Glucose 64 L Lactic Acid Calcium Ferritin AST ALT Alkaline Phosphatase Lactate Dehydrogenase Total Creatine Kinase CK-MB (CK-2) Rel Index Troponin T C-Reactive Protein Total Protein Albumin LDL Cholesterol Direct HDL Cholesterol Arterial Blood Glucose Urine WBC (Auto) Vancomycin Trough Crossmatch 02/27/20 02/27/20 02/27/20 07:30 12:07 18:07 WBC RBC Hgb Hct MCH MCHC RDW Plt Count Lymph % (Auto) Lymph # (Auto) Seg Neutrophils % Seg Neuts % (Manual) Lymphocytes % (Manual) Monocytes % (Manual) Nucleated RBC % Seg Neutrophils # Seg Neutrophils # Man Lymphocytes # (Manual) Monocytes # (Manual) PT INR D-Dimer Heparin Anti-Xa Level ABG pH POC ABG pCO2 POC ABG pO2 ABG pO2 ABG HCO3 ABG O2 Saturation ABG Base Excess ABG Hemoglobin ABG Oxyhemoglobin ABG Sodium ABG Potassium ABG Chloride ABG Glucose Oxyhemoglobin Carboxyhemoglobin Sodium 146 H Potassium Chloride 115.0 H Carbon Dioxide 17 L BUN 29 H Creatinine Glucose 72 L POC Glucose 116 H 63 L Lactic Acid Calcium 7.9 L Ferritin AST 118 H ALT Alkaline Phosphatase 273 H Lactate Dehydrogenase Total Creatine Kinase CK-MB (CK-2) Rel Index Troponin T C-Reactive Protein Total Protein 5.3 L D Albumin 2.0 L LDL Cholesterol Direct HDL Cholesterol Arterial Blood Glucose Urine WBC (Auto) Vancomycin Trough Crossmatch 02/27/20 02/28/20 02/28/20 23:41 04:30 05:30 WBC 12.5 H RBC 2.99 L Hgb 8.0 L Hct 26.6 L MCH 27 L MCHC 30 L RDW 24.8 H Plt Count Lymph % (Auto) 7.5 L Lymph # (Auto) 0.9 L Seg Neutrophils % 86.9 H Seg Neuts % (Manual) Lymphocytes % (Manual) Monocytes % (Manual) Nucleated RBC % Seg Neutrophils # 10.8 H Seg Neutrophils # Man Lymphocytes # (Manual) Monocytes # (Manual) PT INR D-Dimer Heparin Anti-Xa Level ABG pH 7.240 L POC ABG pCO2 POC ABG pO2 ABG pO2 ABG HCO3 ABG O2 Saturation ABG Base Excess ABG Hemoglobin 9.0 L ABG Oxyhemoglobin ABG Sodium ABG Potassium ABG Chloride ABG Glucose Oxyhemoglobin Carboxyhemoglobin Sodium Potassium Chloride Carbon Dioxide BUN Creatinine Glucose POC Glucose 131 H Lactic Acid Calcium Ferritin AST ALT Alkaline Phosphatase Lactate Dehydrogenase Total Creatine Kinase CK-MB (CK-2) Rel Index Troponin T C-Reactive Protein Total Protein Albumin LDL Cholesterol Direct HDL Cholesterol Arterial Blood Glucose Urine WBC (Auto) Vancomycin Trough Crossmatch 02/28/20 02/28/20 02/28/20 06:00 09:00 17:25 WBC RBC Hgb Hct MCH MCHC RDW Plt Count Lymph % (Auto) Lymph # (Auto) Seg Neutrophils % Seg Neuts % (Manual) Lymphocytes % (Manual) Monocytes % (Manual) Nucleated RBC % Seg Neutrophils # Seg Neutrophils # Man Lymphocytes # (Manual) Monocytes # (Manual) PT INR D-Dimer Heparin Anti-Xa Level ABG pH POC ABG pCO2 POC ABG pO2 ABG pO2 ABG HCO3 ABG O2 Saturation ABG Base Excess ABG Hemoglobin ABG Oxyhemoglobin ABG Sodium ABG Potassium ABG Chloride ABG Glucose Oxyhemoglobin Carboxyhemoglobin Sodium Potassium Chloride Carbon Dioxide BUN Creatinine Glucose POC Glucose 121 H 61 L Lactic Acid Calcium Ferritin AST ALT Alkaline Phosphatase Lactate Dehydrogenase Total Creatine Kinase CK-MB (CK-2) Rel Index Troponin T C-Reactive Protein Total Protein Albumin LDL Cholesterol Direct HDL Cholesterol Arterial Blood Glucose Urine WBC (Auto) Vancomycin Trough 29.0 H Crossmatch 02/28/20 02/29/20 02/29/20 Unknown 04:32 05:17 WBC RBC Hgb Hct MCH MCHC RDW Plt Count Lymph % (Auto) Lymph # (Auto) Seg Neutrophils % Seg Neuts % (Manual) Lymphocytes % (Manual) Monocytes % (Manual) Nucleated RBC % Seg Neutrophils # Seg Neutrophils # Man Lymphocytes # (Manual) Monocytes # (Manual) PT INR D-Dimer Heparin Anti-Xa Level ABG pH POC ABG pCO2 22.5 L POC ABG pO2 119.7 H ABG pO2 ABG HCO3 ABG O2 Saturation ABG Base Excess ABG Hemoglobin 10.5 L ABG Oxyhemoglobin ABG Sodium ABG Potassium ABG Chloride ABG Glucose Oxyhemoglobin Carboxyhemoglobin 0.3 L Sodium Potassium Chloride 114.7 H Carbon Dioxide 14 L BUN 30 H Creatinine Glucose POC Glucose Lactic Acid Calcium 7.8 L Ferritin AST 193 H ALT Alkaline Phosphatase 354 H Lactate Dehydrogenase Total Creatine Kinase CK-MB (CK-2) Rel Index Troponin T C-Reactive Protein Total Protein 5.6 L Albumin 2.0 L LDL Cholesterol Direct HDL Cholesterol Arterial Blood Glucose Urine WBC (Auto) Vancomycin Trough Crossmatch 02/29/20 02/29/20 02/29/20 05:29 11:16 11:16 WBC 15.1 H RBC Hgb 10.1 L Hct 32.8 L D MCH 27 L MCHC 31 L RDW 25.2 H Plt Count Lymph % (Auto) Lymph # (Auto) Seg Neutrophils % Seg Neuts % (Manual) 98.0 H Lymphocytes % (Manual) 1.0 L Monocytes % (Manual) Nucleated RBC % 5.0 H Seg Neutrophils # Seg Neutrophils # Man 14.8 H Lymphocytes # (Manual) 0.2 L Monocytes # (Manual) PT INR D-Dimer Heparin Anti-Xa Level ABG pH POC ABG pCO2 POC ABG pO2 ABG pO2 ABG HCO3 ABG O2 Saturation ABG Base Excess ABG Hemoglobin ABG Oxyhemoglobin ABG Sodium ABG Potassium ABG Chloride ABG Glucose Oxyhemoglobin Carboxyhemoglobin Sodium Potassium 3.5 L Chloride 111.7 H Carbon Dioxide 14 L BUN 33 H Creatinine Glucose 180 H POC Glucose 125 H Lactic Acid Calcium 7.8 L Ferritin AST ALT Alkaline Phosphatase Lactate Dehydrogenase Total Creatine Kinase CK-MB (CK-2) Rel Index Troponin T C-Reactive Protein Total Protein Albumin LDL Cholesterol Direct HDL Cholesterol Arterial Blood Glucose Urine WBC (Auto) Vancomycin Trough Crossmatch 02/29/20 02/29/20 02/29/20 12:55 17:53 23:38 WBC RBC Hgb Hct MCH MCHC RDW Plt Count Lymph % (Auto) Lymph # (Auto) Seg Neutrophils % Seg Neuts % (Manual) Lymphocytes % (Manual) Monocytes % (Manual) Nucleated RBC % Seg Neutrophils # Seg Neutrophils # Man Lymphocytes # (Manual) Monocytes # (Manual) PT INR D-Dimer Heparin Anti-Xa Level ABG pH POC ABG pCO2 POC ABG pO2 ABG pO2 ABG HCO3 ABG O2 Saturation ABG Base Excess ABG Hemoglobin ABG Oxyhemoglobin ABG Sodium ABG Potassium ABG Chloride ABG Glucose Oxyhemoglobin Carboxyhemoglobin Sodium Potassium Chloride Carbon Dioxide BUN Creatinine Glucose POC Glucose 134 H 145 H 127 H Lactic Acid Calcium Ferritin AST ALT Alkaline Phosphatase Lactate Dehydrogenase Total Creatine Kinase CK-MB (CK-2) Rel Index Troponin T C-Reactive Protein Total Protein Albumin LDL Cholesterol Direct HDL Cholesterol Arterial Blood Glucose Urine WBC (Auto) Vancomycin Trough Crossmatch 03/01/20 03/01/20 03/01/20 03:46 05:44 07:55 WBC 14.0 H RBC Hgb 10.0 L Hct 32.3 L MCH 27 L MCHC 31 L RDW 25.4 H Plt Count 99 L Lymph % (Auto) Lymph # (Auto) Seg Neutrophils % Seg Neuts % (Manual) Lymphocytes % (Manual) Monocytes % (Manual) Nucleated RBC % Seg Neutrophils # Seg Neutrophils # Man Lymphocytes # (Manual) Monocytes # (Manual) PT INR D-Dimer Heparin Anti-Xa Level ABG pH 7.288 L POC ABG pCO2 POC ABG pO2 ABG pO2 ABG HCO3 11.7 L ABG O2 Saturation ABG Base Excess -13.3 L ABG Hemoglobin ABG Oxyhemoglobin ABG Sodium ABG Potassium ABG Chloride ABG Glucose Oxyhemoglobin Carboxyhemoglobin Sodium Potassium Chloride Carbon Dioxide BUN Creatinine Glucose POC Glucose 177 H Lactic Acid Calcium Ferritin AST ALT Alkaline Phosphatase Lactate Dehydrogenase Total Creatine Kinase CK-MB (CK-2) Rel Index Troponin T C-Reactive Protein Total Protein Albumin LDL Cholesterol Direct HDL Cholesterol Arterial Blood Glucose Urine WBC (Auto) Vancomycin Trough Crossmatch 03/01/20 03/01/20 03/01/20 07:55 12:14 18:07 WBC RBC Hgb Hct MCH MCHC RDW Plt Count Lymph % (Auto) Lymph # (Auto) Seg Neutrophils % Seg Neuts % (Manual) Lymphocytes % (Manual) Monocytes % (Manual) Nucleated RBC % Seg Neutrophils # Seg Neutrophils # Man Lymphocytes # (Manual) Monocytes # (Manual) PT INR D-Dimer Heparin Anti-Xa Level ABG pH POC ABG pCO2 POC ABG pO2 ABG pO2 ABG HCO3 ABG O2 Saturation ABG Base Excess ABG Hemoglobin ABG Oxyhemoglobin ABG Sodium ABG Potassium ABG Chloride ABG Glucose Oxyhemoglobin Carboxyhemoglobin Sodium Potassium Chloride 111.5 H Carbon Dioxide 16 L BUN 36 H Creatinine Glucose 157 H POC Glucose 163 H 109 H Lactic Acid Calcium 7.9 L Ferritin AST ALT Alkaline Phosphatase Lactate Dehydrogenase Total Creatine Kinase CK-MB (CK-2) Rel Index Troponin T C-Reactive Protein Total Protein Albumin LDL Cholesterol Direct HDL Cholesterol Arterial Blood Glucose Urine WBC (Auto) Vancomycin Trough Crossmatch 03/01/20 03/02/20 03/02/20 23:55 05:42 12:02 WBC RBC Hgb Hct MCH MCHC RDW Plt Count Lymph % (Auto) Lymph # (Auto) Seg Neutrophils % Seg Neuts % (Manual) Lymphocytes % (Manual) Monocytes % (Manual) Nucleated RBC % Seg Neutrophils # Seg Neutrophils # Man Lymphocytes # (Manual) Monocytes # (Manual) PT INR D-Dimer Heparin Anti-Xa Level ABG pH POC ABG pCO2 POC ABG pO2 ABG pO2 ABG HCO3 ABG O2 Saturation ABG Base Excess ABG Hemoglobin ABG Oxyhemoglobin ABG Sodium ABG Potassium ABG Chloride ABG Glucose Oxyhemoglobin Carboxyhemoglobin Sodium Potassium Chloride Carbon Dioxide BUN Creatinine Glucose POC Glucose 132 H 146 H 147 H Lactic Acid Calcium Ferritin AST ALT Alkaline Phosphatase Lactate Dehydrogenase Total Creatine Kinase CK-MB (CK-2) Rel Index Troponin T C-Reactive Protein Total Protein Albumin LDL Cholesterol Direct HDL Cholesterol Arterial Blood Glucose Urine WBC (Auto) Vancomycin Trough Crossmatch 03/02/20 03/03/20 03/03/20 17:59 00:28 04:52 WBC 13.3 H RBC Hgb 9.9 L Hct 32.2 L MCH 27 L MCHC 31 L RDW 25.8 H Plt Count 67 L Lymph % (Auto) Lymph # (Auto) Seg Neutrophils % Seg Neuts % (Manual) Lymphocytes % (Manual) Monocytes % (Manual) Nucleated RBC % Seg Neutrophils # Seg Neutrophils # Man Lymphocytes # (Manual) Monocytes # (Manual) PT INR D-Dimer Heparin Anti-Xa Level ABG pH POC ABG pCO2 POC ABG pO2 ABG pO2 ABG HCO3 ABG O2 Saturation ABG Base Excess ABG Hemoglobin ABG Oxyhemoglobin ABG Sodium ABG Potassium ABG Chloride ABG Glucose Oxyhemoglobin Carboxyhemoglobin Sodium Potassium Chloride Carbon Dioxide BUN Creatinine Glucose POC Glucose 113 H 114 H Lactic Acid Calcium Ferritin AST ALT Alkaline Phosphatase Lactate Dehydrogenase Total Creatine Kinase CK-MB (CK-2) Rel Index Troponin T C-Reactive Protein Total Protein Albumin LDL Cholesterol Direct HDL Cholesterol Arterial Blood Glucose Urine WBC (Auto) Vancomycin Trough Crossmatch 03/03/20 03/03/20 03/04/20 04:52 18:08 00:27 WBC RBC Hgb Hct MCH MCHC RDW Plt Count Lymph % (Auto) Lymph # (Auto) Seg Neutrophils % Seg Neuts % (Manual) Lymphocytes % (Manual) Monocytes % (Manual) Nucleated RBC % Seg Neutrophils # Seg Neutrophils # Man Lymphocytes # (Manual) Monocytes # (Manual) PT INR D-Dimer Heparin Anti-Xa Level ABG pH POC ABG pCO2 POC ABG pO2 ABG pO2 ABG HCO3 ABG O2 Saturation ABG Base Excess ABG Hemoglobin ABG Oxyhemoglobin ABG Sodium ABG Potassium ABG Chloride ABG Glucose Oxyhemoglobin Carboxyhemoglobin Sodium Potassium Chloride 112.7 H Carbon Dioxide 19 L BUN 35 H Creatinine Glucose POC Glucose 119 H 120 H Lactic Acid Calcium Ferritin AST ALT Alkaline Phosphatase Lactate Dehydrogenase Total Creatine Kinase CK-MB (CK-2) Rel Index Troponin T C-Reactive Protein Total Protein Albumin LDL Cholesterol Direct HDL Cholesterol Arterial Blood Glucose Urine WBC (Auto) Vancomycin Trough Crossmatch 03/04/20 03/04/20 03/04/20 05:52 12:17 16:45 WBC 17.9 H RBC 3.57 L Hgb 9.6 L Hct 32.8 L MCH 27 L MCHC 29 L RDW 26.4 H Plt Count 136 L D Lymph % (Auto) Lymph # (Auto) Seg Neutrophils % Seg Neuts % (Manual) 91.0 H Lymphocytes % (Manual) 6.0 L Monocytes % (Manual) Nucleated RBC % 2.0 H Seg Neutrophils # Seg Neutrophils # Man 16.3 H Lymphocytes # (Manual) 1.1 L Monocytes # (Manual) PT INR D-Dimer Heparin Anti-Xa Level ABG pH POC ABG pCO2 POC ABG pO2 ABG pO2 ABG HCO3 ABG O2 Saturation ABG Base Excess ABG Hemoglobin ABG Oxyhemoglobin ABG Sodium ABG Potassium ABG Chloride ABG Glucose Oxyhemoglobin Carboxyhemoglobin Sodium Potassium Chloride Carbon Dioxide BUN Creatinine Glucose POC Glucose 166 H 187 H Lactic Acid Calcium Ferritin AST ALT Alkaline Phosphatase Lactate Dehydrogenase Total Creatine Kinase CK-MB (CK-2) Rel Index Troponin T C-Reactive Protein Total Protein Albumin LDL Cholesterol Direct HDL Cholesterol Arterial Blood Glucose Urine WBC (Auto) Vancomycin Trough Crossmatch 03/04/20 03/04/20 03/04/20 16:45 18:29 22:44 WBC RBC Hgb Hct MCH MCHC RDW Plt Count Lymph % (Auto) Lymph # (Auto) Seg Neutrophils % Seg Neuts % (Manual) Lymphocytes % (Manual) Monocytes % (Manual) Nucleated RBC % Seg Neutrophils # Seg Neutrophils # Man Lymphocytes # (Manual) Monocytes # (Manual) PT INR D-Dimer Heparin Anti-Xa Level ABG pH POC ABG pCO2 POC ABG pO2 ABG pO2 ABG HCO3 ABG O2 Saturation ABG Base Excess ABG Hemoglobin ABG Oxyhemoglobin ABG Sodium ABG Potassium ABG Chloride ABG Glucose Oxyhemoglobin Carboxyhemoglobin Sodium 146 H Potassium Chloride 115.6 H Carbon Dioxide 21 L BUN 39 H Creatinine Glucose 137 H POC Glucose 147 H 188 H Lactic Acid Calcium Ferritin AST ALT Alkaline Phosphatase 219 H Lactate Dehydrogenase Total Creatine Kinase CK-MB (CK-2) Rel Index Troponin T C-Reactive Protein Total Protein 5.7 L Albumin 1.9 L LDL Cholesterol Direct HDL Cholesterol Arterial Blood Glucose Urine WBC (Auto) Vancomycin Trough Crossmatch 03/05/20 03/05/20 03/05/20 01:05 04:20 04:56 WBC 20.9 H RBC 3.41 L Hgb 9.3 L Hct 30.5 L MCH 27 L MCHC 30 L RDW 26.0 H Plt Count 130 L Lymph % (Auto) Lymph # (Auto) Seg Neutrophils % Seg Neuts % (Manual) Lymphocytes % (Manual) Monocytes % (Manual) Nucleated RBC % Seg Neutrophils # Seg Neutrophils # Man Lymphocytes # (Manual) Monocytes # (Manual) PT INR D-Dimer Heparin Anti-Xa Level ABG pH 7.225 L 7.280 L POC ABG pCO2 POC ABG pO2 ABG pO2 178.8 H ABG HCO3 19.8 L ABG O2 Saturation ABG Base Excess -7.3 L -6.3 L ABG Hemoglobin 10.0 L 5.0 L ABG Oxyhemoglobin ABG Sodium ABG Potassium ABG Chloride ABG Glucose Oxyhemoglobin Carboxyhemoglobin Sodium Potassium Chloride Carbon Dioxide BUN Creatinine Glucose POC Glucose Lactic Acid Calcium Ferritin AST ALT Alkaline Phosphatase Lactate Dehydrogenase Total Creatine Kinase CK-MB (CK-2) Rel Index Troponin T C-Reactive Protein Total Protein Albumin LDL Cholesterol Direct HDL Cholesterol Arterial Blood Glucose Urine WBC (Auto) Vancomycin Trough Crossmatch 03/05/20 03/05/20 03/05/20 04:56 05:29 11:27 WBC RBC Hgb Hct MCH MCHC RDW Plt Count Lymph % (Auto) Lymph # (Auto) Seg Neutrophils % Seg Neuts % (Manual) Lymphocytes % (Manual) Monocytes % (Manual) Nucleated RBC % Seg Neutrophils # Seg Neutrophils # Man Lymphocytes # (Manual) Monocytes # (Manual) PT INR D-Dimer Heparin Anti-Xa Level ABG pH POC ABG pCO2 POC ABG pO2 ABG pO2 ABG HCO3 ABG O2 Saturation ABG Base Excess ABG Hemoglobin ABG Oxyhemoglobin ABG Sodium ABG Potassium ABG Chloride ABG Glucose Oxyhemoglobin Carboxyhemoglobin Sodium 149 H Potassium Chloride 116.7 H Carbon Dioxide 19 L BUN 43 H Creatinine Glucose 156 H POC Glucose 169 H 159 H Lactic Acid Calcium Ferritin AST ALT Alkaline Phosphatase Lactate Dehydrogenase Total Creatine Kinase CK-MB (CK-2) Rel Index Troponin T C-Reactive Protein Total Protein Albumin LDL Cholesterol Direct HDL Cholesterol Arterial Blood Glucose Urine WBC (Auto) Vancomycin Trough Crossmatch 03/05/20 03/05/20 03/06/20 17:56 23:57 04:00 WBC RBC Hgb Hct MCH MCHC RDW Plt Count Lymph % (Auto) Lymph # (Auto) Seg Neutrophils % Seg Neuts % (Manual) Lymphocytes % (Manual) Monocytes % (Manual) Nucleated RBC % Seg Neutrophils # Seg Neutrophils # Man Lymphocytes # (Manual) Monocytes # (Manual) PT INR D-Dimer Heparin Anti-Xa Level ABG pH POC ABG pCO2 POC ABG pO2 63.9 L ABG pO2 ABG HCO3 ABG O2 Saturation ABG Base Excess ABG Hemoglobin 9.2 L ABG Oxyhemoglobin 91.6 L ABG Sodium ABG Potassium 3.2 L ABG Chloride 117.0 H ABG Glucose 120 H Oxyhemoglobin Carboxyhemoglobin Sodium Potassium Chloride Carbon Dioxide BUN Creatinine Glucose POC Glucose 154 H 153 H Lactic Acid Calcium Ferritin AST ALT Alkaline Phosphatase Lactate Dehydrogenase Total Creatine Kinase CK-MB (CK-2) Rel Index Troponin T C-Reactive Protein Total Protein Albumin LDL Cholesterol Direct HDL Cholesterol Arterial Blood Glucose 120 H Urine WBC (Auto) Vancomycin Trough Crossmatch 03/06/20 03/06/20 03/06/20 05:44 12:49 14:00 WBC 12.1 H RBC 3.08 L Hgb 8.4 L Hct 27.0 L MCH 27 L MCHC 31 L RDW 25.6 H Plt Count 83 L Lymph % (Auto) Lymph # (Auto) Seg Neutrophils % Seg Neuts % (Manual) 90.0 H Lymphocytes % (Manual) 3.0 L Monocytes % (Manual) Nucleated RBC % Seg Neutrophils # Seg Neutrophils # Man 10.9 H Lymphocytes # (Manual) 0.4 L Monocytes # (Manual) PT INR D-Dimer Heparin Anti-Xa Level ABG pH POC ABG pCO2 POC ABG pO2 ABG pO2 ABG HCO3 ABG O2 Saturation ABG Base Excess ABG Hemoglobin ABG Oxyhemoglobin ABG Sodium ABG Potassium ABG Chloride ABG Glucose Oxyhemoglobin Carboxyhemoglobin Sodium Potassium Chloride Carbon Dioxide BUN Creatinine Glucose POC Glucose 147 H 128 H Lactic Acid Calcium Ferritin AST ALT Alkaline Phosphatase Lactate Dehydrogenase Total Creatine Kinase CK-MB (CK-2) Rel Index Troponin T C-Reactive Protein Total Protein Albumin LDL Cholesterol Direct HDL Cholesterol Arterial Blood Glucose Urine WBC (Auto) Vancomycin Trough Crossmatch 03/06/20 03/06/20 03/07/20 14:00 18:26 00:17 WBC RBC Hgb Hct MCH MCHC RDW Plt Count Lymph % (Auto) Lymph # (Auto) Seg Neutrophils % Seg Neuts % (Manual) Lymphocytes % (Manual) Monocytes % (Manual) Nucleated RBC % Seg Neutrophils # Seg Neutrophils # Man Lymphocytes # (Manual) Monocytes # (Manual) PT INR D-Dimer Heparin Anti-Xa Level ABG pH POC ABG pCO2 POC ABG pO2 ABG pO2 ABG HCO3 ABG O2 Saturation ABG Base Excess ABG Hemoglobin ABG Oxyhemoglobin ABG Sodium ABG Potassium ABG Chloride ABG Glucose Oxyhemoglobin Carboxyhemoglobin Sodium 147 H Potassium 3.0 L D Chloride 114.6 H Carbon Dioxide BUN 36 H Creatinine Glucose 133 H POC Glucose 124 H 134 H Lactic Acid Calcium 8.0 L Ferritin AST ALT Alkaline Phosphatase Lactate Dehydrogenase Total Creatine Kinase CK-MB (CK-2) Rel Index Troponin T C-Reactive Protein Total Protein Albumin LDL Cholesterol Direct HDL Cholesterol Arterial Blood Glucose Urine WBC (Auto) Vancomycin Trough Crossmatch 03/07/20 03/07/20 03/07/20 05:13 05:13 05:23 WBC 12.5 H RBC 3.48 L Hgb 9.4 L Hct 30.7 L MCH 27 L MCHC 31 L RDW 26.1 H Plt Count 93 L Lymph % (Auto) Lymph # (Auto) Seg Neutrophils % Seg Neuts % (Manual) Lymphocytes % (Manual) Monocytes % (Manual) Nucleated RBC % Seg Neutrophils # Seg Neutrophils # Man Lymphocytes # (Manual) Monocytes # (Manual) PT INR D-Dimer Heparin Anti-Xa Level ABG pH POC ABG pCO2 POC ABG pO2 ABG pO2 79.9 L ABG HCO3 ABG O2 Saturation ABG Base Excess ABG Hemoglobin 8.1 L ABG Oxyhemoglobin ABG Sodium ABG Potassium ABG Chloride ABG Glucose Oxyhemoglobin 94.4 L Carboxyhemoglobin Sodium 151 H Potassium Chloride 115.5 H Carbon Dioxide BUN 35 H Creatinine Glucose 134 H POC Glucose Lactic Acid Calcium 8.3 L Ferritin AST ALT Alkaline Phosphatase Lactate Dehydrogenase Total Creatine Kinase CK-MB (CK-2) Rel Index Troponin T C-Reactive Protein Total Protein Albumin LDL Cholesterol Direct HDL Cholesterol Arterial Blood Glucose Urine WBC (Auto) Vancomycin Trough Crossmatch 03/07/20 03/07/20 03/07/20 05:39 12:18 17:29 WBC RBC Hgb Hct MCH MCHC RDW Plt Count Lymph % (Auto) Lymph # (Auto) Seg Neutrophils % Seg Neuts % (Manual) Lymphocytes % (Manual) Monocytes % (Manual) Nucleated RBC % Seg Neutrophils # Seg Neutrophils # Man Lymphocytes # (Manual) Monocytes # (Manual) PT INR D-Dimer Heparin Anti-Xa Level ABG pH POC ABG pCO2 POC ABG pO2 ABG pO2 ABG HCO3 ABG O2 Saturation ABG Base Excess ABG Hemoglobin ABG Oxyhemoglobin ABG Sodium ABG Potassium ABG Chloride ABG Glucose Oxyhemoglobin Carboxyhemoglobin Sodium Potassium Chloride Carbon Dioxide BUN Creatinine Glucose POC Glucose 146 H 153 H 124 H Lactic Acid Calcium Ferritin AST ALT Alkaline Phosphatase Lactate Dehydrogenase Total Creatine Kinase CK-MB (CK-2) Rel Index Troponin T C-Reactive Protein Total Protein Albumin LDL Cholesterol Direct HDL Cholesterol Arterial Blood Glucose Urine WBC (Auto) Vancomycin Trough Crossmatch 03/07/20 03/08/20 03/08/20 23:49 04:03 11:57 WBC RBC Hgb Hct MCH MCHC RDW Plt Count Lymph % (Auto) Lymph # (Auto) Seg Neutrophils % Seg Neuts % (Manual) Lymphocytes % (Manual) Monocytes % (Manual) Nucleated RBC % Seg Neutrophils # Seg Neutrophils # Man Lymphocytes # (Manual) Monocytes # (Manual) PT INR D-Dimer Heparin Anti-Xa Level ABG pH POC ABG pCO2 POC ABG pO2 44.9 L ABG pO2 ABG HCO3 ABG O2 Saturation ABG Base Excess ABG Hemoglobin 10.1 L ABG Oxyhemoglobin ABG Sodium 146.0 H ABG Potassium ABG Chloride 114.0 H ABG Glucose Oxyhemoglobin Carboxyhemoglobin Sodium Potassium Chloride Carbon Dioxide BUN Creatinine Glucose POC Glucose 139 H 135 H Lactic Acid Calcium Ferritin AST ALT Alkaline Phosphatase Lactate Dehydrogenase Total Creatine Kinase CK-MB (CK-2) Rel Index Troponin T C-Reactive Protein Total Protein Albumin LDL Cholesterol Direct HDL Cholesterol Arterial Blood Glucose Urine WBC (Auto) Vancomycin Trough Crossmatch 03/08/20 03/08/20 03/09/20 17:50 23:50 00:11 WBC RBC 3.17 L Hgb 8.9 L Hct 27.6 L MCH MCHC RDW 26.9 H Plt Count 118 L Lymph % (Auto) Lymph # (Auto) Seg Neutrophils % Seg Neuts % (Manual) 86.0 H Lymphocytes % (Manual) 5.0 L Monocytes % (Manual) 9.0 H Nucleated RBC % Seg Neutrophils # Seg Neutrophils # Man 8.9 H Lymphocytes # (Manual) 0.5 L Monocytes # (Manual) 0.9 H PT INR D-Dimer Heparin Anti-Xa Level ABG pH POC ABG pCO2 POC ABG pO2 ABG pO2 ABG HCO3 ABG O2 Saturation ABG Base Excess ABG Hemoglobin ABG Oxyhemoglobin ABG Sodium ABG Potassium ABG Chloride ABG Glucose Oxyhemoglobin Carboxyhemoglobin Sodium Potassium Chloride Carbon Dioxide BUN Creatinine Glucose POC Glucose 120 H 106 H Lactic Acid Calcium Ferritin AST ALT Alkaline Phosphatase Lactate Dehydrogenase Total Creatine Kinase CK-MB (CK-2) Rel Index Troponin T C-Reactive Protein Total Protein Albumin LDL Cholesterol Direct HDL Cholesterol Arterial Blood Glucose Urine WBC (Auto) Vancomycin Trough Crossmatch 03/09/20 03/09/20 03/09/20 00:11 04:17 11:54 WBC RBC Hgb Hct MCH MCHC RDW Plt Count Lymph % (Auto) Lymph # (Auto) Seg Neutrophils % Seg Neuts % (Manual) Lymphocytes % (Manual) Monocytes % (Manual) Nucleated RBC % Seg Neutrophils # Seg Neutrophils # Man Lymphocytes # (Manual) Monocytes # (Manual) PT INR D-Dimer Heparin Anti-Xa Level ABG pH 7.451 H POC ABG pCO2 POC ABG pO2 75.5 L ABG pO2 ABG HCO3 ABG O2 Saturation ABG Base Excess ABG Hemoglobin 9.3 L ABG Oxyhemoglobin ABG Sodium 147.0 H ABG Potassium ABG Chloride 114.0 H ABG Glucose Oxyhemoglobin Carboxyhemoglobin Sodium 151 H Potassium 3.4 L Chloride 111.6 H Carbon Dioxide BUN 34 H Creatinine Glucose POC Glucose 138 H Lactic Acid Calcium 8.3 L Ferritin AST ALT Alkaline Phosphatase 156 H Lactate Dehydrogenase Total Creatine Kinase CK-MB (CK-2) Rel Index Troponin T C-Reactive Protein Total Protein 5.7 L Albumin 1.8 L LDL Cholesterol Direct HDL Cholesterol Arterial Blood Glucose Urine WBC (Auto) Vancomycin Trough Crossmatch 03/09/20 03/10/20 03/10/20 17:40 00:05 03:50 WBC RBC Hgb Hct MCH MCHC RDW Plt Count Lymph % (Auto) Lymph # (Auto) Seg Neutrophils % Seg Neuts % (Manual) Lymphocytes % (Manual) Monocytes % (Manual) Nucleated RBC % Seg Neutrophils # Seg Neutrophils # Man Lymphocytes # (Manual) Monocytes # (Manual) PT INR D-Dimer Heparin Anti-Xa Level ABG pH 7.461 H POC ABG pCO2 POC ABG pO2 ABG pO2 72.5 L ABG HCO3 31.5 H ABG O2 Saturation ABG Base Excess 7.0 H ABG Hemoglobin 7.2 L ABG Oxyhemoglobin ABG Sodium ABG Potassium ABG Chloride ABG Glucose Oxyhemoglobin 94.3 L Carboxyhemoglobin Sodium Potassium Chloride Carbon Dioxide BUN Creatinine Glucose POC Glucose 116 H 141 H Lactic Acid Calcium Ferritin AST ALT Alkaline Phosphatase Lactate Dehydrogenase Total Creatine Kinase CK-MB (CK-2) Rel Index Troponin T C-Reactive Protein Total Protein Albumin LDL Cholesterol Direct HDL Cholesterol Arterial Blood Glucose Urine WBC (Auto) Vancomycin Trough Crossmatch 03/10/20 03/10/20 03/10/20 04:38 04:38 05:26 WBC RBC Hgb Hct MCH MCHC 30 L RDW 27.6 H Plt Count 113 L Lymph % (Auto) Lymph # (Auto) Seg Neutrophils % Seg Neuts % (Manual) Lymphocytes % (Manual) Monocytes % (Manual) Nucleated RBC % Seg Neutrophils # Seg Neutrophils # Man Lymphocytes # (Manual) Monocytes # (Manual) PT INR D-Dimer Heparin Anti-Xa Level ABG pH POC ABG pCO2 POC ABG pO2 ABG pO2 ABG HCO3 ABG O2 Saturation ABG Base Excess ABG Hemoglobin ABG Oxyhemoglobin ABG Sodium ABG Potassium ABG Chloride ABG Glucose Oxyhemoglobin Carboxyhemoglobin Sodium 150 H Potassium Chloride 108.7 H Carbon Dioxide 31 H BUN 35 H Creatinine Glucose 126 H POC Glucose 157 H Lactic Acid Calcium Ferritin AST 44 H ALT Alkaline Phosphatase 201 H Lactate Dehydrogenase Total Creatine Kinase CK-MB (CK-2) Rel Index Troponin T C-Reactive Protein Total Protein 6.0 L Albumin 2.2 L LDL Cholesterol Direct HDL Cholesterol Arterial Blood Glucose Urine WBC (Auto) Vancomycin Trough Crossmatch 03/10/20 03/10/20 03/10/20 12:09 18:07 23:22 WBC RBC Hgb Hct MCH MCHC RDW Plt Count Lymph % (Auto) Lymph # (Auto) Seg Neutrophils % Seg Neuts % (Manual) Lymphocytes % (Manual) Monocytes % (Manual) Nucleated RBC % Seg Neutrophils # Seg Neutrophils # Man Lymphocytes # (Manual) Monocytes # (Manual) PT INR D-Dimer Heparin Anti-Xa Level ABG pH POC ABG pCO2 POC ABG pO2 ABG pO2 ABG HCO3 ABG O2 Saturation ABG Base Excess ABG Hemoglobin ABG Oxyhemoglobin ABG Sodium ABG Potassium ABG Chloride ABG Glucose Oxyhemoglobin Carboxyhemoglobin Sodium Potassium Chloride Carbon Dioxide BUN Creatinine Glucose POC Glucose 143 H 129 H 131 H Lactic Acid Calcium Ferritin AST ALT Alkaline Phosphatase Lactate Dehydrogenase Total Creatine Kinase CK-MB (CK-2) Rel Index Troponin T C-Reactive Protein Total Protein Albumin LDL Cholesterol Direct HDL Cholesterol Arterial Blood Glucose Urine WBC (Auto) Vancomycin Trough Crossmatch 03/10/20 03/10/20 03/11/20 23:40 23:40 01:07 WBC RBC Hgb 8.3 L D Hct 25.9 L D MCH MCHC RDW Plt Count 129 L Lymph % (Auto) Lymph # (Auto) Seg Neutrophils % Seg Neuts % (Manual) Lymphocytes % (Manual) Monocytes % (Manual) Nucleated RBC % Seg Neutrophils # Seg Neutrophils # Man Lymphocytes # (Manual) Monocytes # (Manual) PT 15.1 H INR 1.17 H D-Dimer Heparin Anti-Xa Level ABG pH POC ABG pCO2 POC ABG pO2 ABG pO2 ABG HCO3 ABG O2 Saturation ABG Base Excess ABG Hemoglobin ABG Oxyhemoglobin ABG Sodium ABG Potassium ABG Chloride ABG Glucose Oxyhemoglobin Carboxyhemoglobin Sodium 153 H Potassium 3.5 L D Chloride 107.5 H Carbon Dioxide 32 H BUN 32 H Creatinine 0.7 L Glucose 128 H POC Glucose Lactic Acid Calcium 8.1 L Ferritin AST ALT Alkaline Phosphatase 147 H Lactate Dehydrogenase Total Creatine Kinase CK-MB (CK-2) Rel Index Troponin T C-Reactive Protein Total Protein 5.5 L Albumin 1.8 L LDL Cholesterol Direct HDL Cholesterol Arterial Blood Glucose Urine WBC (Auto) Vancomycin Trough Crossmatch 03/11/20 03/11/20 03/11/20 05:15 06:50 11:32 WBC RBC Hgb Hct MCH MCHC RDW Plt Count Lymph % (Auto) Lymph # (Auto) Seg Neutrophils % Seg Neuts % (Manual) Lymphocytes % (Manual) Monocytes % (Manual) Nucleated RBC % Seg Neutrophils # Seg Neutrophils # Man Lymphocytes # (Manual) Monocytes # (Manual) PT INR D-Dimer Heparin Anti-Xa Level < 0.10 L ABG pH POC ABG pCO2 POC ABG pO2 ABG pO2 ABG HCO3 ABG O2 Saturation ABG Base Excess ABG Hemoglobin ABG Oxyhemoglobin ABG Sodium ABG Potassium ABG Chloride ABG Glucose Oxyhemoglobin Carboxyhemoglobin Sodium Potassium Chloride Carbon Dioxide BUN Creatinine Glucose POC Glucose 141 H 130 H Lactic Acid Calcium Ferritin AST ALT Alkaline Phosphatase Lactate Dehydrogenase Total Creatine Kinase CK-MB (CK-2) Rel Index Troponin T C-Reactive Protein Total Protein Albumin LDL Cholesterol Direct HDL Cholesterol Arterial Blood Glucose Urine WBC (Auto) Vancomycin Trough Crossmatch 03/11/20 03/11/20 03/11/20 15:34 18:15 23:47 WBC RBC Hgb Hct MCH MCHC RDW Plt Count Lymph % (Auto) Lymph # (Auto) Seg Neutrophils % Seg Neuts % (Manual) Lymphocytes % (Manual) Monocytes % (Manual) Nucleated RBC % Seg Neutrophils # Seg Neutrophils # Man Lymphocytes # (Manual) Monocytes # (Manual) PT INR D-Dimer Heparin Anti-Xa Level 0.10 L ABG pH POC ABG pCO2 POC ABG pO2 ABG pO2 ABG HCO3 ABG O2 Saturation ABG Base Excess ABG Hemoglobin ABG Oxyhemoglobin ABG Sodium ABG Potassium ABG Chloride ABG Glucose Oxyhemoglobin Carboxyhemoglobin Sodium Potassium Chloride Carbon Dioxide BUN Creatinine Glucose POC Glucose 118 H 147 H Lactic Acid Calcium Ferritin AST ALT Alkaline Phosphatase Lactate Dehydrogenase Total Creatine Kinase CK-MB (CK-2) Rel Index Troponin T C-Reactive Protein Total Protein Albumin LDL Cholesterol Direct HDL Cholesterol Arterial Blood Glucose Urine WBC (Auto) Vancomycin Trough Crossmatch 03/12/20 03/12/20 03/12/20 00:57 00:57 00:57 WBC RBC 3.41 L Hgb 9.3 L Hct 29.8 L MCH 27 L MCHC 31 L RDW 26.3 H Plt Count Lymph % (Auto) Lymph # (Auto) Seg Neutrophils % Seg Neuts % (Manual) 90.0 H Lymphocytes % (Manual) 8.0 L Monocytes % (Manual) Nucleated RBC % Seg Neutrophils # Seg Neutrophils # Man Lymphocytes # (Manual) 0.7 L Monocytes # (Manual) PT INR D-Dimer Heparin Anti-Xa Level < 0.10 L ABG pH POC ABG pCO2 POC ABG pO2 ABG pO2 ABG HCO3 ABG O2 Saturation ABG Base Excess ABG Hemoglobin ABG Oxyhemoglobin ABG Sodium ABG Potassium ABG Chloride ABG Glucose Oxyhemoglobin Carboxyhemoglobin Sodium 146 H Potassium Chloride Carbon Dioxide 31 H BUN 29 H Creatinine 0.6 L Glucose 156 H POC Glucose Lactic Acid Calcium 8.3 L Ferritin AST ALT Alkaline Phosphatase 151 H Lactate Dehydrogenase Total Creatine Kinase CK-MB (CK-2) Rel Index Troponin T C-Reactive Protein Total Protein 6.0 L Albumin 1.7 L LDL Cholesterol Direct HDL Cholesterol Arterial Blood Glucose Urine WBC (Auto) Vancomycin Trough Crossmatch 03/12/20 03/12/20 04:27 05:52 WBC RBC Hgb 10.2 L Hct 33.4 L MCH MCHC RDW Plt Count Lymph % (Auto) Lymph # (Auto) Seg Neutrophils % Seg Neuts % (Manual) Lymphocytes % (Manual) Monocytes % (Manual) Nucleated RBC % Seg Neutrophils # Seg Neutrophils # Man Lymphocytes # (Manual) Monocytes # (Manual) PT INR D-Dimer Heparin Anti-Xa Level ABG pH POC ABG pCO2 POC ABG pO2 ABG pO2 ABG HCO3 ABG O2 Saturation ABG Base Excess ABG Hemoglobin ABG Oxyhemoglobin ABG Sodium ABG Potassium ABG Chloride ABG Glucose Oxyhemoglobin Carboxyhemoglobin Sodium Potassium Chloride Carbon Dioxide BUN Creatinine Glucose POC Glucose 143 H Lactic Acid Calcium Ferritin AST ALT Alkaline Phosphatase Lactate Dehydrogenase Total Creatine Kinase CK-MB (CK-2) Rel Index Troponin T C-Reactive Protein Total Protein Albumin LDL Cholesterol Direct HDL Cholesterol Arterial Blood Glucose Urine WBC (Auto) Vancomycin Trough Crossmatch
[2020-03-12] MEDS ORDERED: fentaNYL 100 MCG/2 ML INJ IV ONE (10:27)
[2020-03-12] MEDS: PYRIDOXINE 50 MG TAB PO SCH (10:27)
[2020-03-12] MEDS ORDERED: ETOMIDATE 20 MG/10 ML INJ IV ONE (10:28)
--- NOTE | 2020-03-12 10:47 | Event Note ---
Date: 03/12/20 Planned to do L4 vertebral body biopsy of sclerotic lesion tomorrow. However, the patient is having to be reintubated. Patient will need to be extubated prior to this biopsy. We will continue to remain available for biopsy so the patient's underlying cancer can be identified.
[2020-03-12] MEDS ORDERED: MIDAZOLAM 5 MG/5 ML INJ MDV IV NR (11:00)
--- NOTE | 2020-03-12 11:16 | Progress Note ---
Assessment and Plan - Patient Problems (1) Anemia Current Visit: Yes Status: Acute Qualifiers: Anemia type: unspecified type Qualified Code(s): D64.9 - Anemia, unspecified (2) Atrial fibrillation Current Visit: Yes Status: Acute (3) Cardiorespiratory arrest Current Visit: Yes Status: Acute (4) Dilated cardiomyopathy Current Visit: Yes Status: Acute (5) Paraplegia Current Visit: Yes Status: Acute (6) Pneumonia Current Visit: Yes Status: Acute Qualifiers: Pneumonia type: due to unspecified organism Laterality: bilateral Lung location: unspecified part of lung Qualified Code(s): J18.9 - Pneumonia, unspecified organism Subjective Date of service: 03/12/20 Principal diagnosis: Acute respiratory failure Interval history: REINTUBATED Objective Vital Signs Temp Pulse Pulse Resp Resp BP Pulse Ox 03/12/20 11:02 106 H 124/48 97 03/12/20 09:25 118 H 139/102 03/12/20 09:23 116 H 139/102 03/12/20 08:48 100 H 40 H 127/102 95 03/12/20 08:00 84 120 H 44 H 143/105 87 03/12/20 07:30 99 H 40 H 152/106 87 03/12/20 07:01 87 40 H 152/108 89 03/12/20 06:30 84 45 H 137/98 89 03/12/20 06:00 108 H 41 H 140/100 92 03/12/20 05:30 106 H 44 H 133/97 94 03/12/20 05:00 111 H 31 H 127/97 94 03/12/20 04:30 100 H 40 H 135/93 92 03/12/20 04:00 100 H 100 H 37 H 122/93 90 03/12/20 03:36 98.9 F 03/12/20 03:30 107 H 41 H 127/99 90 03/12/20 03:00 110 H 46 H 135/100 88 03/12/20 02:30 77 34 H 139/104 63 L 03/12/20 02:00 102 H 38 H 136/102 93 03/12/20 01:41 103 H 45 H 149/100 92 03/12/20 01:30 75 32 H 149/100 79 L 03/12/20 01:00 99 H 35 H 144/103 90 03/12/20 00:30 88 36 H 139/100 89 03/12/20 00:00 110 H 94 H 21 145/101 98 03/11/20 23:56 98.8 F 03/11/20 23:30 80 30 H 136/95 90 03/11/20 23:17 89 34 H 136/100 87 03/11/20 23:00 85 33 H 126/96 88 03/11/20 22:30 79 27 H 125/89 92 03/11/20 22:00 83 29 H 24 132/94 92 03/11/20 21:30 87 27 H 132/92 99 03/11/20 21:01 103 H 27 H 133/95 97 03/11/20 20:30 87 30 H 135/90 99 03/11/20 20:00 103 H 94 H 21 133/92 98 03/11/20 19:47 97.8 F 96 03/11/20 19:30 89 40 H 120/90 79 L 03/11/20 19:00 92 H 25 H 119/92 85 03/11/20 18:30 80 23 119/84 100 03/11/20 18:00 91 H 18 130/94 93 03/11/20 17:30 80 23 124/88 93 03/11/20 17:00 87 31 H 128/90 92 03/11/20 16:30 79 27 H 117/83 94 03/11/20 16:00 97.0 F L 81 69 27 H 124/85 95 03/11/20 15:30 75 26 H 115/81 88 03/11/20 15:00 78 27 H 129/90 95 03/11/20 14:30 78 24 119/85 97 03/11/20 14:00 86 22 122/87 100 03/11/20 13:30 79 23 118/86 100 03/11/20 13:00 79 26 H 124/85 99 03/11/20 12:30 78 27 H 127/83 100 03/11/20 12:00 97.9 F 97 H 66 23 125/94 100 03/11/20 11:36 73 115/83 03/11/20 11:30 89 30 H 125/98 98 - Physical Examination General: Other (VENT) HEENT: Positive: PERRL Neck: Positive: neck supple Cardiac: Positive: Reg Rate and Rhythm Lungs: Positive: Rhonchi Neuro: Positive: Other (DEFFERED) Abdomen: Positive: Soft Extremities: Present: edema (MILD) - Labs and Meds Cardiac Enzymes 03/12/20 Range/Units 00:57 AST 38 (5-40) units/L CBC 03/12/20 03/12/20 Range/Units 00:57 04:27 WBC 8.3 (4.5-11.0) K/mm3 RBC 3.41 L (3.65-5.03) M/mm3 Hgb 9.3 L 10.2 L (11.8-15.2) gm/dl Hct 29.8 L 33.4 L (35.5-45.6) % Plt Count 157 152 (140-440) K/mm3 Comprehensive Metabolic Panel 03/12/20 Range/Units 00:57 Sodium 146 H (137-145) mmol/L Potassium 3.8 (3.6-5.0) mmol/L Chloride 104.3 (98-107) mmol/L Carbon Dioxide 31 H (22-30) mmol/L BUN 29 H (9-20) mg/dL Creatinine 0.6 L (0.8-1.3) mg/dL Glucose 156 H (75-100) mg/dL Calcium 8.3 L (8.4-10.2) mg/dL AST 38 (5-40) units/L ALT 15 (7-56) units/L Alkaline Phosphatase 151 H (35-129) units/L Total Protein 6.0 L (6.3-8.2) g/dL Albumin 1.7 L (3.9-5) g/dL - Imaging and Cardiology EKG: report reviewed, image reviewed
[2020-03-12] MEDS: fentaNYL DRIP Premix 2,000 MCG/100 ML BAG IV SCH (11:22)
--- NOTE | 2020-03-12 11:47 | XRay Report ---
CHEST 1 VIEW 03/12/2020 10:32 AM INDICATION / CLINICAL INFORMATION: Hypoxemia, recent intubation. COMPARISON: None available. FINDINGS: SUPPORT DEVICES: Interval placement of an endotracheal tube with tip projecting approximately 2 cm north perior to the andrew. Remaining support lines and tubes are unchanged. HEART / MEDIASTINUM: Stable. LUNGS / PLEURA: Unchanged bilateral pulmonary opacities and pleural effusions. No pneumothorax. ADDITIONAL FINDINGS: No significant additional findings. IMPRESSION: 1. Endotracheal tube projects in expected position. Signer Name: Mauricio Valladares MD Signed: 03/12/2020 11:42 AM Workstation Name: [id number]
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
--- NOTE | 2020-03-12 14:26 | Progress Note ---
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 03/05/20 08:20 03/05/20 12:27 Proventil IH 2.5 mg Q4HRT PRN Administration Shortness Of Breath Amiodarone HCl 200 mg 03/01/20 12:00 03/12/20 09:25 Cordarone PO 200 mg QDAY AIDEE Administration Lipase/Protease/Amylase 1 each 02/27/20 10:[address] 10,500 Unit FEEDTUBE PRN PRN For Clogged Feeding Tube Carvedilol 6.25 mg 03/02/20 22:00 03/12/20 09:23 Coreg PO 6.25 mg BID AIDEE Administration Dextrose 50 ml 02/27/20 07:16 02/27/20 18:18 D50w (25gm) Syringe IV 50 ml PRN PRN Administration Hypoglycemia Protocol Ethambutol HCl 800 mg 02/27/20 12:00 03/12/20 09:25 Myambutol PO 800 mg QDAY AIDEE Administration Famotidine 20 mg 02/28/20 10:00 03/12/20 09:24 Pepcid PO 20 mg BID AIDEE Administration Fentanyl 50 mcg 03/07/20 10:23 03/12/20 10:27 Sublimaze IV 50 mcg Q2H PRN Administration Pain , Severe (7-10) Furosemide 40 mg 03/12/20 09:00 03/12/20 08:37 Lasix IV 40 mg BID AIDEE Administration Glycopyrrolate 1 mg 03/05/20 10:00 03/12/20 09:24 Robinul PO 1 mg BID AIDEE Administration Haloperidol Lactate 5 mg 03/06/20 16:22 03/11/20 17:05 Haldol IV 5 mg Q6HR PRN Administration Anxiety Hydrophilic Ointment 1 applic 03/05/20 01:44 Vaseline Lip Therapy TP Q2HR PRN Dry Lips Dexmedetomidine HCl 200 mcg/ 50 mls @ 2.268 mls/hr 03/01/20 12:00 03/03/20 11:10 Sodium Chloride IV 0 mcg/kg/hr TITRATE AIDEE 0 mls/hr Titration Protocol 0.2 MCG/KG/HR Norepinephrine 4 mg in 250 mls @ 7.5 mls/hr 03/04/20 03:00 03/05/20 13:00 Levophed Drip 4 Mg/Ns 250 Ml IV 0 mcg/min TITR AIDEE 0 mls/hr Titration Protocol 2 MCG/MIN Fentanyl Citrate 2,000 mcg in 100 mls @ 2.268 mls/hr 03/05/20 02:00 03/12/20 11:28 Fentanyl Drip Premix IV 2 mcg/kg/hr TITR AIDEE 4.536 mls/hr Titration Protocol 1 MCG/KG/HR Heparin Sodium/Sodium Chloride 25,000 unit in 500 mls @ 14 mls/hr 03/10/20 20:00 03/12/20 11:13 Heparin/ 0.45% Nacl-25,000 Unit/500 Ml IV 1,150 units/hr TITR AIDEE 23 mls/hr Titration Protocol 700 UNITS/HR Dobutamine HCl/Dextrose 500 mg in 250 mls @ 4.082 mls/hr 03/12/20 12:00 Dobutrex Drip 500mg/D5w 250ml IV TITR AIDEE 3 MCG/KG/MIN Isoniazid 300 mg 02/27/20 12:00 03/12/20 09:24 Isoniazid PO 300 mg QDAY AIDEE Administration Lisinopril 2.5 mg 03/03/20 10:00 03/12/20 09:23 Zestril PO 2.5 mg QDAY AIDEE Administration Magnesium Hydroxide 30 ml 02/25/20 04:16 Milk Of Magnesia PO Q4H PRN Constipation Methadone HCl 10 mg 03/02/20 14:00 03/12/20 14:13 Dolophine PO 10 mg Q8HR AIDEE Administration Multi-Ingred Cream/Lotion/Oil/Oint 1 applic 03/05/20 01:44 Artificial Tears Ophth Oint OU Q4HR PRN Dry Eye(s) Ondansetron HCl 4 mg 02/25/20 04:16 Zofran IV Q8H PRN Nausea And Vomiting Pyrazinamide 1,000 mg 02/29/20 10:00 03/12/20 09:24 Pyrazinamide PO 1,000 mg QDAY AIDEE Administration Pyridoxine HCl 50 mg 02/27/20 12:00 03/12/20 10:27 Vitamin B-6 PO 50 mg QDAY AIDEE Administration Rifampin 600 mg 02/27/20 12:00 03/12/20 09:24 Rifadin PO 600 mg QDAY AIDEE Administration Senna/Docusate Sodium 2 tab 03/02/20 10:00 03/12/20 09:25 Senokot S PO 2 tab BID AIDEE Administration Simple Syrup 15 ml 02/27/20 10:25 Simple Syrup FEEDTUBE PRN PRN Hypoglycemia Simple Syrup 30 ml 02/27/20 10:25 Simple Syrup FEEDTUBE PRN PRN Hypoglycemia Sodium Bicarbonate 325 mg 02/27/20 10:25 Sodium Bicarbonate FEEDTUBE PRN PRN For Clogged Feeding Tube Sodium Chloride 10 ml 02/25/20 10:00 03/12/20 10:15 Sodium Chloride Flush Syringe 10 Ml IV 10 ml BID AIDEE Administration Sodium Chloride 10 ml 02/25/20 04:16 03/10/20 00:45 Sodium Chloride Flush Syringe 10 Ml IV 10 ml PRN PRN Administration LINE FLUSH Spironolactone 25 mg 03/03/20 10:00 03/12/20 09:25 Aldactone PO 25 mg QDAY AIDEE Administration Nutrition/Malnutrition Assess - Dietary Evaluation Nutrition/Malnutrition Findings: Nutrition Notes Start: 02/25/20 10:14 Freq: Status: Active Protocol: Document 03/07/20 13:09 DAYANARA (Rec: 03/07/20 13:51 DAYANARA [id number]) Co-Sign 03/07/20 13:09 SHUBHAM Nutrition Notes Initial or Follow up Reassessment Current Diagnosis Decubitus(Pressure Ulcer), Sepsis,Respiratory Failure Other Pertinent Diagnosis Pneu, UTI, anemia, paraplegia, buttocks PU,Pulmonary TB Current Diet Osmolite 1.5 at 50ml/hr Labs/Tests Na 151 BUN 35 BG 134 Pertinent Medications Vitamin B6 Lasix Height 5 ft 9 in Weight 45.359 kg [place] Body Weight (kg) 72.72 BMI 14.8 Weight Status Underweight Subjective/Other Information F/U for NG replacement and stable TF. TF running at goal rate and pt tolerating. Pt reintubated due to cardiac arrest event. 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 Yes Is Patient Ambulatory and/or Out of Bed No REE-([place]-confined to bed) 1592.628 Kcal/Kg value to use for calculation 42 Approximate Energy Requirements Using 1905 kcal/Kg Calculation Used for Recommendations Kcal/kg Additional Notes Protein: 54-91g (1.2-2g/kg) Fluid: 1ml/kcal Nutrition Intervention Change Diet Order: Continue TF Nutrition Support: Osmolite 1.5 at 50ml/hr. Flush 250ml q4h for hypernatremia. Flush 150ml q4h once hypernatremia resolved. Kcal 1,800 Protein (gm) 75 Fluid (mL) 914 Goal #1 TF tolerance Goal #2 Meet at least 100% of energy and protein needs via TF. Goal #3 Wound healing Goal #4 Wt maintenance or wt gain Anticipated Discharge Needs: Unable to determine at this time Follow-Up By: 03/14/20 Additional Comments F/U for stable TF, hypernatremia, plan of care
[2020-03-13] MEDS: HEPARIN/ 0.45% NACL DRIP 25,000 UNIT/500 ML BAG IV SCH ×2 (01:30→18:41)
[2020-03-13] MEDS: fentaNYL DRIP Premix 2,000 MCG/100 ML BAG IV SCH ×2 (01:30→18:41)
[2020-03-13 01:59] LABS: Basophils % (Auto) 0.3 % (0.0-1.8); Eosinophils % (Auto) 0.1 % (0.0-4.3); Hematocrit 26.5 % (35.5-45.6); Hemoglobin 8.3 gm/dl (11.8-15.2); Lymphocytes # (Auto) 0.8 K/mm3 (1.2-5.4); Lymphocytes % (Auto) 8.8 % (13.4-35.0); Mean Corpuscular HGB Conc 32 % (32-34); Mean Corpuscular Volume 88 fl (84-94); Monocytes # (Auto) 0.5 K/mm3 (0.0-0.8); Monocytes % (Auto) 5.5 % (0.0-7.3); Platelet Count 163 K/mm3 (140-440); Red Blood Count 3.03 M/mm3 (3.65-5.03)
[2020-03-13 02:01] LABS: Red Cell Distribution Width 24.5 % (13.2-15.2)
[2020-03-13 02:19] LABS: Alanine Aminotransferase 14 units/L (7-56); Albumin 1.8 g/dL (3.9-5); Blood Urea Nitrogen 30 mg/dL (9-20); Calcium 8.1 mg/dL (8.4-10.2); Hemolysis Index 1
[2020-03-13 02:22] LABS: BUN/Creatinine Ratio 43
[2020-03-13] MEDS: NORepinephrine/NS 4 MG-250 ML 4 MG/250 ML BAG IV SCH (02:40)
[2020-03-13] MEDS: METHADONE 10 MG TAB PO SCH ×3 (05:34→21:43)
[2020-03-13] MEDS: fentaNYL 100 MCG/2 ML INJ IV PRN ×4 (09:45→21:43)
--- NOTE | 2020-03-13 09:57 | Progress Note ---
Assessment and Plan 44 y/o male admitted with hypoxemia, fever and brody catheter pain, subsequent cardiac arrest in the ED, resuscitated and intubated, now with hypotension, anion gap metabolic acidosis, acute respiratory failure, hypoglycemia and vtach/vfib, found to have severe left sided heart disease, now with cardiac arrest and re-intubation but awakens off sedation and follows commands. 1. Pulm-Back to minimal vent settings. I dropped FiO2 down 40 given sats in the high 90's. Appreciate Cards help with dobutamine. Gave nursing some parameters for this drug. Patient awake on sedation but will start to wean off in the next 48 hours. Will need to increase long acting therapy to help with this. Hopeful he will not need trach but may need this. 2. CV-severe systolic heart failure. Cards following. They have added medications to the regimen. No invasive measures per them. Still needs better afterload reduction as he decompensated quickly off of positive pressure. Trial of dobutamine. Per cards, this diagnosis alone is not a candidate for hospice therapy but his overall picture appears to be that way. 3. Heme-Anemia. Etiology unknown. Could be from chronic disease. HIT negative. stable 4. Renal- Function is normal. Dietary to increase free water. Needs more increases 5. Endo-restarted feeds via NG/Dobb laquita tube, dietary to increase free water. 6. 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 Abx therapy stopped. 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 ID follows. 7. Onc-per IR, cannot biopsy while on vent 8. OVerall prognosis is poor but in a dilemma as patient has not official diagnosis of malignancy as there is no tissue, but he would not be a candidate for any other therapy given his current clinical state, especially with significant heart failure. Will attempt to have a family discussion with everyone at the bedside to include the patient as he is awake. 03/12/2020 Called halfway significant other, and mother and spoke to significant others sister over the phone at their request. Explained that patient cannot maintain his current respiratory status without support. They understand. I have also suggest a family meeting to discuss intermission coordinator care and what the potential next steps could be. Tough without a diagnosis but with his heart failure alone, seems like he would be a candidate for hospice but will ask Cardiology their opinion on this. Will arrange a time with so that we can speak with family over the phone, hopefully early in the week. Overall prognosis is very very poor. 03/10/2020 Long discussion with mother (akil Floyd) and long time significant other (Ms. Zach Roe) via 3 way phone call. Good info from the significant other. [facility]ael did not do biopsy as they wanted to treat the TB first to see if the lytic lesions were related to this. This is why patient was discharged to home without biopsy. Patient was scheduled for follow up CT on Friday but was admitted to [facility] on the prior and has been here ever since. I explained to them that the patient, even if this is cancer, may not be a candidate for much if any therapy given his other comorbid diseases. The family became tearful on the phone but expressed understanding. They wish to see him and I will attempt to work this out with them post extubation tomorrow or Friday. He will be NPO after midnight on Friday and Heparin drip should be stopped at midnight in preparation for biopsy on Friday. Overall prognosis is guarded to Poor. CCT 31 minutes. Subjective Date of service: 03/13/20 Principal diagnosis: Acute respiratory failure Interval history: Re-intubated on yesterday. Started on Fent Drip and had to have levo started as well. Dobutamine was ordered by cards but then stopped this am. Nursing not e xactly sure why. HR in the 70 on levo 2. Patient is awake and alert. Spoke to him about trach this morning. He became anxious but he understands why. Objective Vital Signs - 12hr 03/12/20 03/12/20 03/12/20 22:00 22:01 22:30 Temperature Pulse Rate 106 H 105 H 100 H Pulse Rate [ From Monitor] Respiratory 26 H 26 H Rate Blood Pressure 92/61 92/61 79/51 O2 Sat by Pulse 99 99 Oximetry 03/12/20 03/12/20 03/12/20 22:41 23:00 23:19 Temperature Pulse Rate 100 H 97 H 96 H Pulse Rate [ From Monitor] Respiratory 26 H 24 Rate Blood Pressure 79/51 82/51 93/48 O2 Sat by Pulse 99 100 100 Oximetry 03/12/20 03/13/20 03/13/20 23:30 00:00 00:30 Temperature 98.2 F Pulse Rate 103 H 98 H 101 H Pulse Rate [ 96 H From Monitor] Respiratory 22 26 H 16 Rate Blood Pressure 86/62 80/54 81/59 O2 Sat by Pulse 100 99 100 Oximetry 03/13/20 03/13/20 03/13/20 01:00 01:30 02:00 Temperature Pulse Rate 100 H 99 H 89 Pulse Rate [ From Monitor] Respiratory 19 24 26 H Rate Blood Pressure 89/60 87/58 76/51 O2 Sat by Pulse 99 100 100 Oximetry 03/13/20 03/13/20 03/13/20 02:30 03:00 03:04 Temperature Pulse Rate 87 85 79 Pulse Rate [ From Monitor] Respiratory 26 H 26 H Rate Blood Pressure 73/49 76/53 76/53 O2 Sat by Pulse 99 100 100 Oximetry 03/13/20 03/13/20 03/13/20 03:30 04:00 04:30 Temperature 98.5 F Pulse Rate 81 89 74 Pulse Rate [ 74 From Monitor] Respiratory 25 H 25 H 20 Rate Blood Pressure 95/66 98/68 97/63 O2 Sat by Pulse 100 100 100 Oximetry 03/13/20 03/13/20 03/13/20 05:00 05:30 06:00 Temperature Pulse Rate 81 74 72 Pulse Rate [ From Monitor] Respiratory 13 26 H 18 Rate Blood Pressure 100/68 108/74 110/76 O2 Sat by Pulse 100 100 100 Oximetry 03/13/20 03/13/20 03/13/20 06:30 07:00 07:30 Temperature Pulse Rate 85 73 73 Pulse Rate [ From Monitor] Respiratory 15 23 26 H Rate Blood Pressure 112/75 111/75 93/62 O2 Sat by Pulse 100 99 99 Oximetry 03/13/20 03/13/20 03/13/20 08:00 08:30 09:00 Temperature 97.6 F Pulse Rate 71 68 78 Pulse Rate [ 71 From Monitor] Respiratory 26 H 26 H 23 Rate Blood Pressure 110/74 110/76 100/67 O2 Sat by Pulse 100 99 99 Oximetry 03/13/20 09:30 Temperature Pulse Rate 70 Pulse Rate [ From Monitor] Respiratory 22 Rate Blood Pressure 107/70 O2 Sat by Pulse 99 Oximetry Constitutional: agitated, appears uncomfortable, other (on vent, critically ill) Eyes: icteric, injected ENT: other (orally intubated with poor dentition) Neck: supple, no JVD Effort: mildly labored, other (Tachypneic) Ascultation: Right: rhonchi (upper lobe), Bilateral: rales Percussion: Bilateral: not dull Cardiovascular: other (sinus tach) Gastrointestinal: normoactive bowel sounds, soft Extremities: other (per nursing report, decubitus ulcer) Neurologic: unable to assess CBC and BMP: 03/13/20 01:07 03/13/20 01:07 ABG, PT/INR, D-dimer: ABG ABG pH 7.474 (7.320-7.450) H 03/13/20 02:43 POC ABG pCO2 48.2 mmHg (32.0-48.0) H 03/13/20 02:43 ABG pCO2 45.2 mm Hg 03/10/20 03:50 POC ABG pO2 123.0 mmHg (83-108) H 03/13/20 02:43 ABG pO2 72.5 mm Hg (80.0-90.0) L 03/10/20 03:50 POC ABG HCO3 34.6 03/13/20 02:43 ABG O2 Saturation 96.8 % (95.0-99.0) 03/10/20 03:50 PT/INR, D-dimer PT 15.1 Sec. (12.2-14.9) H 03/10/20 23:40 INR 1.17 (0.87-1.13) H 03/10/20 23:40 D-Dimer 3251.26 ng/mlDDU (0-234) H 02/25/20 03:37 Abnormal lab findings: Abnormal Labs 02/25/20 02/25/20 02/25/20 00:46 00:46 00:46 WBC RBC 3.22 L Hgb 8.9 L Hct 28.5 L MCH MCHC 31 L RDW 24.8 H Plt Count 452 H Lymph % (Auto) 9.1 L Lymph # (Auto) 0.9 L Seg Neutrophils % 86.6 H Seg Neuts % (Manual) Lymphocytes % (Manual) Monocytes % (Manual) Nucleated RBC % Seg Neutrophils # 8.9 H Seg Neutrophils # Man Lymphocytes # (Manual) Monocytes # (Manual) PT INR D-Dimer Heparin Anti-Xa Level ABG pH POC ABG pCO2 POC ABG pO2 ABG pO2 ABG HCO3 ABG O2 Saturation ABG Base Excess ABG Hemoglobin ABG Oxyhemoglobin ABG Sodium ABG Potassium ABG Chloride ABG Glucose Oxyhemoglobin Carboxyhemoglobin Sodium Potassium Chloride Carbon Dioxide BUN Creatinine Glucose POC Glucose Lactic Acid 2.10 H* Calcium 8.3 L Ferritin AST ALT < 5 L Alkaline Phosphatase 187 H Lactate Dehydrogenase Total Creatine Kinase 28 L CK-MB (CK-2) Rel Index 8.5 H Troponin T 0.190 H* C-Reactive Protein Total Protein Albumin 2.5 L LDL Cholesterol Direct 45 L HDL Cholesterol 32 L Arterial Blood Glucose Arterial Blood Ionized Calcium Urine WBC (Auto) Vancomycin Trough Crossmatch 02/25/20 02/25/20 02/25/20 02:32 03:37 03:37 WBC RBC Hgb Hct MCH MCHC RDW Plt Count Lymph % (Auto) Lymph # (Auto) Seg Neutrophils % Seg Neuts % (Manual) Lymphocytes % (Manual) Monocytes % (Manual) Nucleated RBC % Seg Neutrophils # Seg Neutrophils # Man Lymphocytes # (Manual) Monocytes # (Manual) PT INR D-Dimer 3251.26 H Heparin Anti-Xa Level ABG pH POC ABG pCO2 POC ABG pO2 ABG pO2 ABG HCO3 ABG O2 Saturation ABG Base Excess ABG Hemoglobin ABG Oxyhemoglobin ABG Sodium ABG Potassium ABG Chloride ABG Glucose Oxyhemoglobin Carboxyhemoglobin Sodium Potassium Chloride Carbon Dioxide BUN Creatinine Glucose 144 H POC Glucose Lactic Acid Calcium Ferritin AST ALT Alkaline Phosphatase Lactate Dehydrogenase 234 H Total Creatine Kinase CK-MB (CK-2) Rel Index Troponin T C-Reactive Protein 8.80 H Total Protein Albumin LDL Cholesterol Direct HDL Cholesterol Arterial Blood Glucose Arterial Blood Ionized Calcium Urine WBC (Auto) 68.0 H Vancomycin Trough Crossmatch 02/25/20 02/25/20 02/25/20 03:37 05:36 06:33 WBC RBC Hgb Hct MCH MCHC RDW Plt Count Lymph % (Auto) Lymph # (Auto) Seg Neutrophils % Seg Neuts % (Manual) Lymphocytes % (Manual) Monocytes % (Manual) Nucleated RBC % Seg Neutrophils # Seg Neutrophils # Man Lymphocytes # (Manual) Monocytes # (Manual) PT INR D-Dimer Heparin Anti-Xa Level ABG pH POC ABG pCO2 POC ABG pO2 ABG pO2 ABG HCO3 ABG O2 Saturation ABG Base Excess ABG Hemoglobin ABG Oxyhemoglobin ABG Sodium ABG Potassium ABG Chloride ABG Glucose Oxyhemoglobin Carboxyhemoglobin Sodium Potassium Chloride Carbon Dioxide BUN Creatinine Glucose POC Glucose 234 H Lactic Acid Calcium Ferritin 450.5 H AST ALT Alkaline Phosphatase Lactate Dehydrogenase Total Creatine Kinase CK-MB (CK-2) Rel Index Troponin T 0.187 H* C-Reactive Protein Total Protein Albumin LDL Cholesterol Direct HDL Cholesterol Arterial Blood Glucose Arterial Blood Ionized Calcium Urine WBC (Auto) Vancomycin Trough Crossmatch 02/25/20 02/25/20 02/25/20 09:30 13:10 16:27 WBC RBC Hgb Hct MCH MCHC RDW Plt Count Lymph % (Auto) Lymph # (Auto) Seg Neutrophils % Seg Neuts % (Manual) Lymphocytes % (Manual) Monocytes % (Manual) Nucleated RBC % Seg Neutrophils # Seg Neutrophils # Man Lymphocytes # (Manual) Monocytes # (Manual) PT INR D-Dimer Heparin Anti-Xa Level ABG pH 7.149 L* 7.256 L POC ABG pCO2 POC ABG pO2 ABG pO2 165.3 H 64.5 L ABG HCO3 17.2 L 17.4 L ABG O2 Saturation 85.2 L ABG Base Excess -11.0 L -9.0 L ABG Hemoglobin 7.5 L 8.4 L ABG Oxyhemoglobin ABG Sodium ABG Potassium ABG Chloride ABG Glucose Oxyhemoglobin 83.4 L Carboxyhemoglobin Sodium Potassium Chloride Carbon Dioxide BUN Creatinine Glucose POC Glucose Lactic Acid 3.20 H* Calcium Ferritin AST ALT Alkaline Phosphatase Lactate Dehydrogenase Total Creatine Kinase CK-MB (CK-2) Rel Index Troponin T C-Reactive Protein Total Protein Albumin LDL Cholesterol Direct HDL Cholesterol Arterial Blood Glucose Arterial Blood Ionized Calcium Urine WBC (Auto) Vancomycin Trough Crossmatch 02/26/20 02/26/20 02/26/20 04:00 04:00 04:00 WBC 20.4 H RBC 2.61 L Hgb 7.0 L Hct 24.5 L MCH 27 L MCHC 29 L RDW 25.1 H Plt Count Lymph % (Auto) Lymph # (Auto) Seg Neutrophils % Seg Neuts % (Manual) 92.0 H Lymphocytes % (Manual) 4.0 L Monocytes % (Manual) Nucleated RBC % Seg Neutrophils # Seg Neutrophils # Man 18.8 H Lymphocytes # (Manual) 0.8 L Monocytes # (Manual) PT 17.9 H INR 1.46 H D-Dimer Heparin Anti-Xa Level ABG pH POC ABG pCO2 POC ABG pO2 ABG pO2 ABG HCO3 ABG O2 Saturation ABG Base Excess ABG Hemoglobin ABG Oxyhemoglobin ABG Sodium ABG Potassium ABG Chloride ABG Glucose Oxyhemoglobin Carboxyhemoglobin Sodium Potassium Chloride 111.1 H Carbon Dioxide 14 L D BUN 29 H Creatinine Glucose 57 L POC Glucose Lactic Acid Calcium 7.8 L Ferritin AST ALT Alkaline Phosphatase Lactate Dehydrogenase Total Creatine Kinase CK-MB (CK-2) Rel Index Troponin T C-Reactive Protein Total Protein Albumin LDL Cholesterol Direct HDL Cholesterol Arterial Blood Glucose Arterial Blood Ionized Calcium Urine WBC (Auto) Vancomycin Trough Crossmatch 02/26/20 02/26/20 02/26/20 04:20 07:13 09:20 WBC RBC Hgb Hct MCH MCHC RDW Plt Count Lymph % (Auto) Lymph # (Auto) Seg Neutrophils % Seg Neuts % (Manual) Lymphocytes % (Manual) Monocytes % (Manual) Nucleated RBC % Seg Neutrophils # Seg Neutrophils # Man Lymphocytes # (Manual) Monocytes # (Manual) PT INR D-Dimer Heparin Anti-Xa Level ABG pH 7.269 L POC ABG pCO2 POC ABG pO2 ABG pO2 236.1 H ABG HCO3 13.9 L ABG O2 Saturation 99.3 H ABG Base Excess -11.9 L ABG Hemoglobin 7.2 L ABG Oxyhemoglobin ABG Sodium ABG Potassium ABG Chloride ABG Glucose Oxyhemoglobin Carboxyhemoglobin Sodium Potassium Chloride Carbon Dioxide BUN Creatinine Glucose POC Glucose 52 L Lactic Acid Calcium Ferritin AST ALT Alkaline Phosphatase Lactate Dehydrogenase Total Creatine Kinase CK-MB (CK-2) Rel Index Troponin T C-Reactive Protein Total Protein Albumin LDL Cholesterol Direct HDL Cholesterol Arterial Blood Glucose Arterial Blood Ionized Calcium Urine WBC (Auto) Vancomycin Trough Crossmatch See Detail 02/27/20 02/27/20 02/27/20 04:59 05:40 07:30 WBC 16.6 H RBC 3.07 L Hgb 8.4 L Hct 27.4 L MCH MCHC 31 L RDW 24.4 H Plt Count Lymph % (Auto) Lymph # (Auto) Seg Neutrophils % Seg Neuts % (Manual) Lymphocytes % (Manual) Monocytes % (Manual) Nucleated RBC % Seg Neutrophils # Seg Neutrophils # Man Lymphocytes # (Manual) Monocytes # (Manual) PT INR D-Dimer Heparin Anti-Xa Level ABG pH 7.306 L POC ABG pCO2 POC ABG pO2 ABG pO2 149.6 H ABG HCO3 17.0 L ABG O2 Saturation ABG Base Excess -8.5 L ABG Hemoglobin 7.8 L ABG Oxyhemoglobin ABG Sodium ABG Potassium ABG Chloride ABG Glucose Oxyhemoglobin Carboxyhemoglobin Sodium Potassium Chloride Carbon Dioxide BUN Creatinine Glucose POC Glucose 64 L Lactic Acid Calcium Ferritin AST ALT Alkaline Phosphatase Lactate Dehydrogenase Total Creatine Kinase CK-MB (CK-2) Rel Index Troponin T C-Reactive Protein Total Protein Albumin LDL Cholesterol Direct HDL Cholesterol Arterial Blood Glucose Arterial Blood Ionized Calcium Urine WBC (Auto) Vancomycin Trough Crossmatch 02/27/20 02/27/20 02/27/20 07:30 12:07 18:07 WBC RBC Hgb Hct MCH MCHC RDW Plt Count Lymph % (Auto) Lymph # (Auto) Seg Neutrophils % Seg Neuts % (Manual) Lymphocytes % (Manual) Monocytes % (Manual) Nucleated RBC % Seg Neutrophils # Seg Neutrophils # Man Lymphocytes # (Manual) Monocytes # (Manual) PT INR D-Dimer Heparin Anti-Xa Level ABG pH POC ABG pCO2 POC ABG pO2 ABG pO2 ABG HCO3 ABG O2 Saturation ABG Base Excess ABG Hemoglobin ABG Oxyhemoglobin ABG Sodium ABG Potassium ABG Chloride ABG Glucose Oxyhemoglobin Carboxyhemoglobin Sodium 146 H Potassium Chloride 115.0 H Carbon Dioxide 17 L BUN 29 H Creatinine Glucose 72 L POC Glucose 116 H 63 L Lactic Acid Calcium 7.9 L Ferritin AST 118 H ALT Alkaline Phosphatase 273 H Lactate Dehydrogenase Total Creatine Kinase CK-MB (CK-2) Rel Index Troponin T C-Reactive Protein Total Protein 5.3 L D Albumin 2.0 L LDL Cholesterol Direct HDL Cholesterol Arterial Blood Glucose Arterial Blood Ionized Calcium Urine WBC (Auto) Vancomycin Trough Crossmatch 02/27/20 02/28/20 02/28/20 23:41 04:30 05:30 WBC 12.5 H RBC 2.99 L Hgb 8.0 L Hct 26.6 L MCH 27 L MCHC 30 L RDW 24.8 H Plt Count Lymph % (Auto) 7.5 L Lymph # (Auto) 0.9 L Seg Neutrophils % 86.9 H Seg Neuts % (Manual) Lymphocytes % (Manual) Monocytes % (Manual) Nucleated RBC % Seg Neutrophils # 10.8 H Seg Neutrophils # Man Lymphocytes # (Manual) Monocytes # (Manual) PT INR D-Dimer Heparin Anti-Xa Level ABG pH 7.240 L POC ABG pCO2 POC ABG pO2 ABG pO2 ABG HCO3 ABG O2 Saturation ABG Base Excess ABG Hemoglobin 9.0 L ABG Oxyhemoglobin ABG Sodium ABG Potassium ABG Chloride ABG Glucose Oxyhemoglobin Carboxyhemoglobin Sodium Potassium Chloride Carbon Dioxide BUN Creatinine Glucose POC Glucose 131 H Lactic Acid Calcium Ferritin AST ALT Alkaline Phosphatase Lactate Dehydrogenase Total Creatine Kinase CK-MB (CK-2) Rel Index Troponin T C-Reactive Protein Total Protein Albumin LDL Cholesterol Direct HDL Cholesterol Arterial Blood Glucose Arterial Blood Ionized Calcium Urine WBC (Auto) Vancomycin Trough Crossmatch 02/28/20 02/28/20 02/28/20 06:00 09:00 17:25 WBC RBC Hgb Hct MCH MCHC RDW Plt Count Lymph % (Auto) Lymph # (Auto) Seg Neutrophils % Seg Neuts % (Manual) Lymphocytes % (Manual) Monocytes % (Manual) Nucleated RBC % Seg Neutrophils # Seg Neutrophils # Man Lymphocytes # (Manual) Monocytes # (Manual) PT INR D-Dimer Heparin Anti-Xa Level ABG pH POC ABG pCO2 POC ABG pO2 ABG pO2 ABG HCO3 ABG O2 Saturation ABG Base Excess ABG Hemoglobin ABG Oxyhemoglobin ABG Sodium ABG Potassium ABG Chloride ABG Glucose Oxyhemoglobin Carboxyhemoglobin Sodium Potassium Chloride Carbon Dioxide BUN Creatinine Glucose POC Glucose 121 H 61 L Lactic Acid Calcium Ferritin AST ALT Alkaline Phosphatase Lactate Dehydrogenase Total Creatine Kinase CK-MB (CK-2) Rel Index Troponin T C-Reactive Protein Total Protein Albumin LDL Cholesterol Direct HDL Cholesterol Arterial Blood Glucose Arterial Blood Ionized Calcium Urine WBC (Auto) Vancomycin Trough 29.0 H Crossmatch 02/28/20 02/29/20 02/29/20 Unknown 04:32 05:17 WBC RBC Hgb Hct MCH MCHC RDW Plt Count Lymph % (Auto) Lymph # (Auto) Seg Neutrophils % Seg Neuts % (Manual) Lymphocytes % (Manual) Monocytes % (Manual) Nucleated RBC % Seg Neutrophils # Seg Neutrophils # Man Lymphocytes # (Manual) Monocytes # (Manual) PT INR D-Dimer Heparin Anti-Xa Level ABG pH POC ABG pCO2 22.5 L POC ABG pO2 119.7 H ABG pO2 ABG HCO3 ABG O2 Saturation ABG Base Excess ABG Hemoglobin 10.5 L ABG Oxyhemoglobin ABG Sodium ABG Potassium ABG Chloride ABG Glucose Oxyhemoglobin Carboxyhemoglobin 0.3 L Sodium Potassium Chloride 114.7 H Carbon Dioxide 14 L BUN 30 H Creatinine Glucose POC Glucose Lactic Acid Calcium 7.8 L Ferritin AST 193 H ALT Alkaline Phosphatase 354 H Lactate Dehydrogenase Total Creatine Kinase CK-MB (CK-2) Rel Index Troponin T C-Reactive Protein Total Protein 5.6 L Albumin 2.0 L LDL Cholesterol Direct HDL Cholesterol Arterial Blood Glucose Arterial Blood Ionized Calcium Urine WBC (Auto) Vancomycin Trough Crossmatch 02/29/20 02/29/20 02/29/20 05:29 11:16 11:16 WBC 15.1 H RBC Hgb 10.1 L Hct 32.8 L D MCH 27 L MCHC 31 L RDW 25.2 H Plt Count Lymph % (Auto) Lymph # (Auto) Seg Neutrophils % Seg Neuts % (Manual) 98.0 H Lymphocytes % (Manual) 1.0 L Monocytes % (Manual) Nucleated RBC % 5.0 H Seg Neutrophils # Seg Neutrophils # Man 14.8 H Lymphocytes # (Manual) 0.2 L Monocytes # (Manual) PT INR D-Dimer Heparin Anti-Xa Level ABG pH POC ABG pCO2 POC ABG pO2 ABG pO2 ABG HCO3 ABG O2 Saturation ABG Base Excess ABG Hemoglobin ABG Oxyhemoglobin ABG Sodium ABG Potassium ABG Chloride ABG Glucose Oxyhemoglobin Carboxyhemoglobin Sodium Potassium 3.5 L Chloride 111.7 H Carbon Dioxide 14 L BUN 33 H Creatinine Glucose 180 H POC Glucose 125 H Lactic Acid Calcium 7.8 L Ferritin AST ALT Alkaline Phosphatase Lactate Dehydrogenase Total Creatine Kinase CK-MB (CK-2) Rel Index Troponin T C-Reactive Protein Total Protein Albumin LDL Cholesterol Direct HDL Cholesterol Arterial Blood Glucose Arterial Blood Ionized Calcium Urine WBC (Auto) Vancomycin Trough Crossmatch 02/29/20 02/29/20 02/29/20 12:55 17:53 23:38 WBC RBC Hgb Hct MCH MCHC RDW Plt Count Lymph % (Auto) Lymph # (Auto) Seg Neutrophils % Seg Neuts % (Manual) Lymphocytes % (Manual) Monocytes % (Manual) Nucleated RBC % Seg Neutrophils # Seg Neutrophils # Man Lymphocytes # (Manual) Monocytes # (Manual) PT INR D-Dimer Heparin Anti-Xa Level ABG pH POC ABG pCO2 POC ABG pO2 ABG pO2 ABG HCO3 ABG O2 Saturation ABG Base Excess ABG Hemoglobin ABG Oxyhemoglobin ABG Sodium ABG Potassium ABG Chloride ABG Glucose Oxyhemoglobin Carboxyhemoglobin Sodium Potassium Chloride Carbon Dioxide BUN Creatinine Glucose POC Glucose 134 H 145 H 127 H Lactic Acid Calcium Ferritin AST ALT Alkaline Phosphatase Lactate Dehydrogenase Total Creatine Kinase CK-MB (CK-2) Rel Index Troponin T C-Reactive Protein Total Protein Albumin LDL Cholesterol Direct HDL Cholesterol Arterial Blood Glucose Arterial Blood Ionized Calcium Urine WBC (Auto) Vancomycin Trough Crossmatch 03/01/20 03/01/20 03/01/20 03:46 05:44 07:55 WBC 14.0 H RBC Hgb 10.0 L Hct 32.3 L MCH 27 L MCHC 31 L RDW 25.4 H Plt Count 99 L Lymph % (Auto) Lymph # (Auto) Seg Neutrophils % Seg Neuts % (Manual) Lymphocytes % (Manual) Monocytes % (Manual) Nucleated RBC % Seg Neutrophils # Seg Neutrophils # Man Lymphocytes # (Manual) Monocytes # (Manual) PT INR D-Dimer Heparin Anti-Xa Level ABG pH 7.288 L POC ABG pCO2 POC ABG pO2 ABG pO2 ABG HCO3 11.7 L ABG O2 Saturation ABG Base Excess -13.3 L ABG Hemoglobin ABG Oxyhemoglobin ABG Sodium ABG Potassium ABG Chloride ABG Glucose Oxyhemoglobin Carboxyhemoglobin Sodium Potassium Chloride Carbon Dioxide BUN Creatinine Glucose POC Glucose 177 H Lactic Acid Calcium Ferritin AST ALT Alkaline Phosphatase Lactate Dehydrogenase Total Creatine Kinase CK-MB (CK-2) Rel Index Troponin T C-Reactive Protein Total Protein Albumin LDL Cholesterol Direct HDL Cholesterol Arterial Blood Glucose Arterial Blood Ionized Calcium Urine WBC (Auto) Vancomycin Trough Crossmatch 03/01/20 03/01/20 03/01/20 07:55 12:14 18:07 WBC RBC Hgb Hct MCH MCHC RDW Plt Count Lymph % (Auto) Lymph # (Auto) Seg Neutrophils % Seg Neuts % (Manual) Lymphocytes % (Manual) Monocytes % (Manual) Nucleated RBC % Seg Neutrophils # Seg Neutrophils # Man Lymphocytes # (Manual) Monocytes # (Manual) PT INR D-Dimer Heparin Anti-Xa Level ABG pH POC ABG pCO2 POC ABG pO2 ABG pO2 ABG HCO3 ABG O2 Saturation ABG Base Excess ABG Hemoglobin ABG Oxyhemoglobin ABG Sodium ABG Potassium ABG Chloride ABG Glucose Oxyhemoglobin Carboxyhemoglobin Sodium Potassium Chloride 111.5 H Carbon Dioxide 16 L BUN 36 H Creatinine Glucose 157 H POC Glucose 163 H 109 H Lactic Acid Calcium 7.9 L Ferritin AST ALT Alkaline Phosphatase Lactate Dehydrogenase Total Creatine Kinase CK-MB (CK-2) Rel Index Troponin T C-Reactive Protein Total Protein Albumin LDL Cholesterol Direct HDL Cholesterol Arterial Blood Glucose Arterial Blood Ionized Calcium Urine WBC (Auto) Vancomycin Trough Crossmatch 03/01/20 03/02/20 03/02/20 23:55 05:42 12:02 WBC RBC Hgb Hct MCH MCHC RDW Plt Count Lymph % (Auto) Lymph # (Auto) Seg Neutrophils % Seg Neuts % (Manual) Lymphocytes % (Manual) Monocytes % (Manual) Nucleated RBC % Seg Neutrophils # Seg Neutrophils # Man Lymphocytes # (Manual) Monocytes # (Manual) PT INR D-Dimer Heparin Anti-Xa Level ABG pH POC ABG pCO2 POC ABG pO2 ABG pO2 ABG HCO3 ABG O2 Saturation ABG Base Excess ABG Hemoglobin ABG Oxyhemoglobin ABG Sodium ABG Potassium ABG Chloride ABG Glucose Oxyhemoglobin Carboxyhemoglobin Sodium Potassium Chloride Carbon Dioxide BUN Creatinine Glucose POC Glucose 132 H 146 H 147 H Lactic Acid Calcium Ferritin AST ALT Alkaline Phosphatase Lactate Dehydrogenase Total Creatine Kinase CK-MB (CK-2) Rel Index Troponin T C-Reactive Protein Total Protein Albumin LDL Cholesterol Direct HDL Cholesterol Arterial Blood Glucose Arterial Blood Ionized Calcium Urine WBC (Auto) Vancomycin Trough Crossmatch 03/02/20 03/03/20 03/03/20 17:59 00:28 04:52 WBC 13.3 H RBC Hgb 9.9 L Hct 32.2 L MCH 27 L MCHC 31 L RDW 25.8 H Plt Count 67 L Lymph % (Auto) Lymph # (Auto) Seg Neutrophils % Seg Neuts % (Manual) Lymphocytes % (Manual) Monocytes % (Manual) Nucleated RBC % Seg Neutrophils # Seg Neutrophils # Man Lymphocytes # (Manual) Monocytes # (Manual) PT INR D-Dimer Heparin Anti-Xa Level ABG pH POC ABG pCO2 POC ABG pO2 ABG pO2 ABG HCO3 ABG O2 Saturation ABG Base Excess ABG Hemoglobin ABG Oxyhemoglobin ABG Sodium ABG Potassium ABG Chloride ABG Glucose Oxyhemoglobin Carboxyhemoglobin Sodium Potassium Chloride Carbon Dioxide BUN Creatinine Glucose POC Glucose 113 H 114 H Lactic Acid Calcium Ferritin AST ALT Alkaline Phosphatase Lactate Dehydrogenase Total Creatine Kinase CK-MB (CK-2) Rel Index Troponin T C-Reactive Protein Total Protein Albumin LDL Cholesterol Direct HDL Cholesterol Arterial Blood Glucose Arterial Blood Ionized Calcium Urine WBC (Auto) Vancomycin Trough Crossmatch 03/03/20 03/03/20 03/04/20 04:52 18:08 00:27 WBC RBC Hgb Hct MCH MCHC RDW Plt Count Lymph % (Auto) Lymph # (Auto) Seg Neutrophils % Seg Neuts % (Manual) Lymphocytes % (Manual) Monocytes % (Manual) Nucleated RBC % Seg Neutrophils # Seg Neutrophils # Man Lymphocytes # (Manual) Monocytes # (Manual) PT INR D-Dimer Heparin Anti-Xa Level ABG pH POC ABG pCO2 POC ABG pO2 ABG pO2 ABG HCO3 ABG O2 Saturation ABG Base Excess ABG Hemoglobin ABG Oxyhemoglobin ABG Sodium ABG Potassium ABG Chloride ABG Glucose Oxyhemoglobin Carboxyhemoglobin Sodium Potassium Chloride 112.7 H Carbon Dioxide 19 L BUN 35 H Creatinine Glucose POC Glucose 119 H 120 H Lactic Acid Calcium Ferritin AST ALT Alkaline Phosphatase Lactate Dehydrogenase Total Creatine Kinase CK-MB (CK-2) Rel Index Troponin T C-Reactive Protein Total Protein Albumin LDL Cholesterol Direct HDL Cholesterol Arterial Blood Glucose Arterial Blood Ionized Calcium Urine WBC (Auto) Vancomycin Trough Crossmatch 03/04/20 03/04/20 03/04/20 05:52 12:17 16:45 WBC 17.9 H RBC 3.57 L Hgb 9.6 L Hct 32.8 L MCH 27 L MCHC 29 L RDW 26.4 H Plt Count 136 L D Lymph % (Auto) Lymph # (Auto) Seg Neutrophils % Seg Neuts % (Manual) 91.0 H Lymphocytes % (Manual) 6.0 L Monocytes % (Manual) Nucleated RBC % 2.0 H Seg Neutrophils # Seg Neutrophils # Man 16.3 H Lymphocytes # (Manual) 1.1 L Monocytes # (Manual) PT INR D-Dimer Heparin Anti-Xa Level ABG pH POC ABG pCO2 POC ABG pO2 ABG pO2 ABG HCO3 ABG O2 Saturation ABG Base Excess ABG Hemoglobin ABG Oxyhemoglobin ABG Sodium ABG Potassium ABG Chloride ABG Glucose Oxyhemoglobin Carboxyhemoglobin Sodium Potassium Chloride Carbon Dioxide BUN Creatinine Glucose POC Glucose 166 H 187 H Lactic Acid Calcium Ferritin AST ALT Alkaline Phosphatase Lactate Dehydrogenase Total Creatine Kinase CK-MB (CK-2) Rel Index Troponin T C-Reactive Protein Total Protein Albumin LDL Cholesterol Direct HDL Cholesterol Arterial Blood Glucose Arterial Blood Ionized Calcium Urine WBC (Auto) Vancomycin Trough Crossmatch 03/04/20 03/04/20 03/04/20 16:45 18:29 22:44 WBC RBC Hgb Hct MCH MCHC RDW Plt Count Lymph % (Auto) Lymph # (Auto) Seg Neutrophils % Seg Neuts % (Manual) Lymphocytes % (Manual) Monocytes % (Manual) Nucleated RBC % Seg Neutrophils # Seg Neutrophils # Man Lymphocytes # (Manual) Monocytes # (Manual) PT INR D-Dimer Heparin Anti-Xa Level ABG pH POC ABG pCO2 POC ABG pO2 ABG pO2 ABG HCO3 ABG O2 Saturation ABG Base Excess ABG Hemoglobin ABG Oxyhemoglobin ABG Sodium ABG Potassium ABG Chloride ABG Glucose Oxyhemoglobin Carboxyhemoglobin Sodium 146 H Potassium Chloride 115.6 H Carbon Dioxide 21 L BUN 39 H Creatinine Glucose 137 H POC Glucose 147 H 188 H Lactic Acid Calcium Ferritin AST ALT Alkaline Phosphatase 219 H Lactate Dehydrogenase Total Creatine Kinase CK-MB (CK-2) Rel Index Troponin T C-Reactive Protein Total Protein 5.7 L Albumin 1.9 L LDL Cholesterol Direct HDL Cholesterol Arterial Blood Glucose Arterial Blood Ionized Calcium Urine WBC (Auto) Vancomycin Trough Crossmatch 03/05/20 03/05/20 03/05/20 01:05 04:20 04:56 WBC 20.9 H RBC 3.41 L Hgb 9.3 L Hct 30.5 L MCH 27 L MCHC 30 L RDW 26.0 H Plt Count 130 L Lymph % (Auto) Lymph # (Auto) Seg Neutrophils % Seg Neuts % (Manual) Lymphocytes % (Manual) Monocytes % (Manual) Nucleated RBC % Seg Neutrophils # Seg Neutrophils # Man Lymphocytes # (Manual) Monocytes # (Manual) PT INR D-Dimer Heparin Anti-Xa Level ABG pH 7.225 L 7.280 L POC ABG pCO2 POC ABG pO2 ABG pO2 178.8 H ABG HCO3 19.8 L ABG O2 Saturation ABG Base Excess -7.3 L -6.3 L ABG Hemoglobin 10.0 L 5.0 L ABG Oxyhemoglobin ABG Sodium ABG Potassium ABG Chloride ABG Glucose Oxyhemoglobin Carboxyhemoglobin Sodium Potassium Chloride Carbon Dioxide BUN Creatinine Glucose POC Glucose Lactic Acid Calcium Ferritin AST ALT Alkaline Phosphatase Lactate Dehydrogenase Total Creatine Kinase CK-MB (CK-2) Rel Index Troponin T C-Reactive Protein Total Protein Albumin LDL Cholesterol Direct HDL Cholesterol Arterial Blood Glucose Arterial Blood Ionized Calcium Urine WBC (Auto) Vancomycin Trough Crossmatch 1003/05/20 03/05/20 04:56 05:29 11:27 WBC RBC Hgb Hct MCH MCHC RDW Plt Count Lymph % (Auto) Lymph # (Auto) Seg Neutrophils % Seg Neuts % (Manual) Lymphocytes % (Manual) Monocytes % (Manual) Nucleated RBC % Seg Neutrophils # Seg Neutrophils # Man Lymphocytes # (Manual) Monocytes # (Manual) PT INR D-Dimer Heparin Anti-Xa Level ABG pH POC ABG pCO2 POC ABG pO2 ABG pO2 ABG HCO3 ABG O2 Saturation ABG Base Excess ABG Hemoglobin ABG Oxyhemoglobin ABG Sodium ABG Potassium ABG Chloride ABG Glucose Oxyhemoglobin Carboxyhemoglobin Sodium 149 H Potassium Chloride 116.7 H Carbon Dioxide 19 L BUN 43 H Creatinine Glucose 156 H POC Glucose 169 H 159 H Lactic Acid Calcium Ferritin AST ALT Alkaline Phosphatase Lactate Dehydrogenase Total Creatine Kinase CK-MB (CK-2) Rel Index Troponin T C-Reactive Protein Total Protein Albumin LDL Cholesterol Direct HDL Cholesterol Arterial Blood Glucose Arterial Blood Ionized Calcium Urine WBC (Auto) Vancomycin Trough Crossmatch 03/05/20 03/05/20 03/06/20 17:56 23:57 04:00 WBC RBC Hgb Hct MCH MCHC RDW Plt Count Lymph % (Auto) Lymph # (Auto) Seg Neutrophils % Seg Neuts % (Manual) Lymphocytes % (Manual) Monocytes % (Manual) Nucleated RBC % Seg Neutrophils # Seg Neutrophils # Man Lymphocytes # (Manual) Monocytes # (Manual) PT INR D-Dimer Heparin Anti-Xa Level ABG pH POC ABG pCO2 POC ABG pO2 63.9 L ABG pO2 ABG HCO3 ABG O2 Saturation ABG Base Excess ABG Hemoglobin 9.2 L ABG Oxyhemoglobin 91.6 L ABG Sodium ABG Potassium 3.2 L ABG Chloride 117.0 H ABG Glucose 120 H Oxyhemoglobin Carboxyhemoglobin Sodium Potassium Chloride Carbon Dioxide BUN Creatinine Glucose POC Glucose 154 H 153 H Lactic Acid Calcium Ferritin AST ALT Alkaline Phosphatase Lactate Dehydrogenase Total Creatine Kinase CK-MB (CK-2) Rel Index Troponin T C-Reactive Protein Total Protein Albumin LDL Cholesterol Direct HDL Cholesterol Arterial Blood Glucose 120 H Arterial Blood Ionized Calcium Urine WBC (Auto) Vancomycin Trough Crossmatch 03/06/20 03/06/20 03/06/20 05:44 12:49 14:00 WBC 12.1 H RBC 3.08 L Hgb 8.4 L Hct 27.0 L MCH 27 L MCHC 31 L RDW 25.6 H Plt Count 83 L Lymph % (Auto) Lymph # (Auto) Seg Neutrophils % Seg Neuts % (Manual) 90.0 H Lymphocytes % (Manual) 3.0 L Monocytes % (Manual) Nucleated RBC % Seg Neutrophils # Seg Neutrophils # Man 10.9 H Lymphocytes # (Manual) 0.4 L Monocytes # (Manual) PT INR D-Dimer Heparin Anti-Xa Level ABG pH POC ABG pCO2 POC ABG pO2 ABG pO2 ABG HCO3 ABG O2 Saturation ABG Base Excess ABG Hemoglobin ABG Oxyhemoglobin ABG Sodium ABG Potassium ABG Chloride ABG Glucose Oxyhemoglobin Carboxyhemoglobin Sodium Potassium Chloride Carbon Dioxide BUN Creatinine Glucose POC Glucose 147 H 128 H Lactic Acid Calcium Ferritin AST ALT Alkaline Phosphatase Lactate Dehydrogenase Total Creatine Kinase CK-MB (CK-2) Rel Index Troponin T C-Reactive Protein Total Protein Albumin LDL Cholesterol Direct HDL Cholesterol Arterial Blood Glucose Arterial Blood Ionized Calcium Urine WBC (Auto) Vancomycin Trough Crossmatch 03/06/20 03/06/20 03/07/20 14:00 18:26 00:17 WBC RBC Hgb Hct MCH MCHC RDW Plt Count Lymph % (Auto) Lymph # (Auto) Seg Neutrophils % Seg Neuts % (Manual) Lymphocytes % (Manual) Monocytes % (Manual) Nucleated RBC % Seg Neutrophils # Seg Neutrophils # Man Lymphocytes # (Manual) Monocytes # (Manual) PT INR D-Dimer Heparin Anti-Xa Level ABG pH POC ABG pCO2 POC ABG pO2 ABG pO2 ABG HCO3 ABG O2 Saturation ABG Base Excess ABG Hemoglobin ABG Oxyhemoglobin ABG Sodium ABG Potassium ABG Chloride ABG Glucose Oxyhemoglobin Carboxyhemoglobin Sodium 147 H Potassium 3.0 L D Chloride 114.6 H Carbon Dioxide BUN 36 H Creatinine Glucose 133 H POC Glucose 124 H 134 H Lactic Acid Calcium 8.0 L Ferritin AST ALT Alkaline Phosphatase Lactate Dehydrogenase Total Creatine Kinase CK-MB (CK-2) Rel Index Troponin T C-Reactive Protein Total Protein Albumin LDL Cholesterol Direct HDL Cholesterol Arterial Blood Glucose Arterial Blood Ionized Calcium Urine WBC (Auto) Vancomycin Trough Crossmatch 03/07/20 03/07/20 03/07/20 05:13 05:13 05:23 WBC 12.5 H RBC 3.48 L Hgb 9.4 L Hct 30.7 L MCH 27 L MCHC 31 L RDW 26.1 H Plt Count 93 L Lymph % (Auto) Lymph # (Auto) Seg Neutrophils % Seg Neuts % (Manual) Lymphocytes % (Manual) Monocytes % (Manual) Nucleated RBC % Seg Neutrophils # Seg Neutrophils # Man Lymphocytes # (Manual) Monocytes # (Manual) PT INR D-Dimer Heparin Anti-Xa Level ABG pH POC ABG pCO2 POC ABG pO2 ABG pO2 79.9 L ABG HCO3 ABG O2 Saturation ABG Base Excess ABG Hemoglobin 8.1 L ABG Oxyhemoglobin ABG Sodium ABG Potassium ABG Chloride ABG Glucose Oxyhemoglobin 94.4 L Carboxyhemoglobin Sodium 151 H Potassium Chloride 115.5 H Carbon Dioxide BUN 35 H Creatinine Glucose 134 H POC Glucose Lactic Acid Calcium 8.3 L Ferritin AST ALT Alkaline Phosphatase Lactate Dehydrogenase Total Creatine Kinase CK-MB (CK-2) Rel Index Troponin T C-Reactive Protein Total Protein Albumin LDL Cholesterol Direct HDL Cholesterol Arterial Blood Glucose Arterial Blood Ionized Calcium Urine WBC (Auto) Vancomycin Trough Crossmatch 03/07/20 03/07/20 03/07/20 05:39 12:18 17:29 WBC RBC Hgb Hct MCH MCHC RDW Plt Count Lymph % (Auto) Lymph # (Auto) Seg Neutrophils % Seg Neuts % (Manual) Lymphocytes % (Manual) Monocytes % (Manual) Nucleated RBC % Seg Neutrophils # Seg Neutrophils # Man Lymphocytes # (Manual) Monocytes # (Manual) PT INR D-Dimer Heparin Anti-Xa Level ABG pH POC ABG pCO2 POC ABG pO2 ABG pO2 ABG HCO3 ABG O2 Saturation ABG Base Excess ABG Hemoglobin ABG Oxyhemoglobin ABG Sodium ABG Potassium ABG Chloride ABG Glucose Oxyhemoglobin Carboxyhemoglobin Sodium Potassium Chloride Carbon Dioxide BUN Creatinine Glucose POC Glucose 146 H 153 H 124 H Lactic Acid Calcium Ferritin AST ALT Alkaline Phosphatase Lactate Dehydrogenase Total Creatine Kinase CK-MB (CK-2) Rel Index Troponin T C-Reactive Protein Total Protein Albumin LDL Cholesterol Direct HDL Cholesterol Arterial Blood Glucose Arterial Blood Ionized Calcium Urine WBC (Auto) Vancomycin Trough Crossmatch 03/07/20 03/08/20 03/08/20 23:49 04:03 11:57 WBC RBC Hgb Hct MCH MCHC RDW Plt Count Lymph % (Auto) Lymph # (Auto) Seg Neutrophils % Seg Neuts % (Manual) Lymphocytes % (Manual) Monocytes % (Manual) Nucleated RBC % Seg Neutrophils # Seg Neutrophils # Man Lymphocytes # (Manual) Monocytes # (Manual) PT INR D-Dimer Heparin Anti-Xa Level ABG pH POC ABG pCO2 POC ABG pO2 44.9 L ABG pO2 ABG HCO3 ABG O2 Saturation ABG Base Excess ABG Hemoglobin 10.1 L ABG Oxyhemoglobin ABG Sodium 146.0 H ABG Potassium ABG Chloride 114.0 H ABG Glucose Oxyhemoglobin Carboxyhemoglobin Sodium Potassium Chloride Carbon Dioxide BUN Creatinine Glucose POC Glucose 139 H 135 H Lactic Acid Calcium Ferritin AST ALT Alkaline Phosphatase Lactate Dehydrogenase Total Creatine Kinase CK-MB (CK-2) Rel Index Troponin T C-Reactive Protein Total Protein Albumin LDL Cholesterol Direct HDL Cholesterol Arterial Blood Glucose Arterial Blood Ionized Calcium Urine WBC (Auto) Vancomycin Trough Crossmatch 03/08/20 03/08/20 03/09/20 17:50 23:50 00:11 WBC RBC 3.17 L Hgb 8.9 L Hct 27.6 L MCH MCHC RDW 26.9 H Plt Count 118 L Lymph % (Auto) Lymph # (Auto) Seg Neutrophils % Seg Neuts % (Manual) 86.0 H Lymphocytes % (Manual) 5.0 L Monocytes % (Manual) 9.0 H Nucleated RBC % Seg Neutrophils # Seg Neutrophils # Man 8.9 H Lymphocytes # (Manual) 0.5 L Monocytes # (Manual) 0.9 H PT INR D-Dimer Heparin Anti-Xa Level ABG pH POC ABG pCO2 POC ABG pO2 ABG pO2 ABG HCO3 ABG O2 Saturation ABG Base Excess ABG Hemoglobin ABG Oxyhemoglobin ABG Sodium ABG Potassium ABG Chloride ABG Glucose Oxyhemoglobin Carboxyhemoglobin Sodium Potassium Chloride Carbon Dioxide BUN Creatinine Glucose POC Glucose 120 H 106 H Lactic Acid Calcium Ferritin AST ALT Alkaline Phosphatase Lactate Dehydrogenase Total Creatine Kinase CK-MB (CK-2) Rel Index Troponin T C-Reactive Protein Total Protein Albumin LDL Cholesterol Direct HDL Cholesterol Arterial Blood Glucose Arterial Blood Ionized Calcium Urine WBC (Auto) Vancomycin Trough Crossmatch 03/09/20 03/09/20 03/09/20 00:11 04:17 11:54 WBC RBC Hgb Hct MCH MCHC RDW Plt Count Lymph % (Auto) Lymph # (Auto) Seg Neutrophils % Seg Neuts % (Manual) Lymphocytes % (Manual) Monocytes % (Manual) Nucleated RBC % Seg Neutrophils # Seg Neutrophils # Man Lymphocytes # (Manual) Monocytes # (Manual) PT INR D-Dimer Heparin Anti-Xa Level ABG pH 7.451 H POC ABG pCO2 POC ABG pO2 75.5 L ABG pO2 ABG HCO3 ABG O2 Saturation ABG Base Excess ABG Hemoglobin 9.3 L ABG Oxyhemoglobin ABG Sodium 147.0 H ABG Potassium ABG Chloride 114.0 H ABG Glucose Oxyhemoglobin Carboxyhemoglobin Sodium 151 H Potassium 3.4 L Chloride 111.6 H Carbon Dioxide BUN 34 H Creatinine Glucose POC Glucose 138 H Lactic Acid Calcium 8.3 L Ferritin AST ALT Alkaline Phosphatase 156 H Lactate Dehydrogenase Total Creatine Kinase CK-MB (CK-2) Rel Index Troponin T C-Reactive Protein Total Protein 5.7 L Albumin 1.8 L LDL Cholesterol Direct HDL Cholesterol Arterial Blood Glucose Arterial Blood Ionized Calcium Urine WBC (Auto) Vancomycin Trough Crossmatch 03/09/20 03/10/20 03/10/20 17:40 00:05 03:50 WBC RBC Hgb Hct MCH MCHC RDW Plt Count Lymph % (Auto) Lymph # (Auto) Seg Neutrophils % Seg Neuts % (Manual) Lymphocytes % (Manual) Monocytes % (Manual) Nucleated RBC % Seg Neutrophils # Seg Neutrophils # Man Lymphocytes # (Manual) Monocytes # (Manual) PT INR D-Dimer Heparin Anti-Xa Level ABG pH 7.461 H POC ABG pCO2 POC ABG pO2 ABG pO2 72.5 L ABG HCO3 31.5 H ABG O2 Saturation ABG Base Excess 7.0 H ABG Hemoglobin 7.2 L ABG Oxyhemoglobin ABG Sodium ABG Potassium ABG Chloride ABG Glucose Oxyhemoglobin 94.3 L Carboxyhemoglobin Sodium Potassium Chloride Carbon Dioxide BUN Creatinine Glucose POC Glucose 116 H 141 H Lactic Acid Calcium Ferritin AST ALT Alkaline Phosphatase Lactate Dehydrogenase Total Creatine Kinase CK-MB (CK-2) Rel Index Troponin T C-Reactive Protein Total Protein Albumin LDL Cholesterol Direct HDL Cholesterol Arterial Blood Glucose Arterial Blood Ionized Calcium Urine WBC (Auto) Vancomycin Trough Crossmatch 03/10/20 03/10/20 03/10/20 04:38 04:38 05:26 WBC RBC Hgb Hct MCH MCHC 30 L RDW 27.6 H Plt Count 113 L Lymph % (Auto) Lymph # (Auto) Seg Neutrophils % Seg Neuts % (Manual) Lymphocytes % (Manual) Monocytes % (Manual) Nucleated RBC % Seg Neutrophils # Seg Neutrophils # Man Lymphocytes # (Manual) Monocytes # (Manual) PT INR D-Dimer Heparin Anti-Xa Level ABG pH POC ABG pCO2 POC ABG pO2 ABG pO2 ABG HCO3 ABG O2 Saturation ABG Base Excess ABG Hemoglobin ABG Oxyhemoglobin ABG Sodium ABG Potassium ABG Chloride ABG Glucose Oxyhemoglobin Carboxyhemoglobin Sodium 150 H Potassium Chloride 108.7 H Carbon Dioxide 31 H BUN 35 H Creatinine Glucose 126 H POC Glucose 157 H Lactic Acid Calcium Ferritin AST 44 H ALT Alkaline Phosphatase 201 H Lactate Dehydrogenase Total Creatine Kinase CK-MB (CK-2) Rel Index Troponin T C-Reactive Protein Total Protein 6.0 L Albumin 2.2 L LDL Cholesterol Direct HDL Cholesterol Arterial Blood Glucose Arterial Blood Ionized Calcium Urine WBC (Auto) Vancomycin Trough Crossmatch 03/10/20 03/10/20 03/10/20 12:09 18:07 23:22 WBC RBC Hgb Hct MCH MCHC RDW Plt Count Lymph % (Auto) Lymph # (Auto) Seg Neutrophils % Seg Neuts % (Manual) Lymphocytes % (Manual) Monocytes % (Manual) Nucleated RBC % Seg Neutrophils # Seg Neutrophils # Man Lymphocytes # (Manual) Monocytes # (Manual) PT INR D-Dimer Heparin Anti-Xa Level ABG pH POC ABG pCO2 POC ABG pO2 ABG pO2 ABG HCO3 ABG O2 Saturation ABG Base Excess ABG Hemoglobin ABG Oxyhemoglobin ABG Sodium ABG Potassium ABG Chloride ABG Glucose Oxyhemoglobin Carboxyhemoglobin Sodium Potassium Chloride Carbon Dioxide BUN Creatinine Glucose POC Glucose 143 H 129 H 131 H Lactic Acid Calcium Ferritin AST ALT Alkaline Phosphatase Lactate Dehydrogenase Total Creatine Kinase CK-MB (CK-2) Rel Index Troponin T C-Reactive Protein Total Protein Albumin LDL Cholesterol Direct HDL Cholesterol Arterial Blood Glucose Arterial Blood Ionized Calcium Urine WBC (Auto) Vancomycin Trough Crossmatch 03/10/20 03/10/20 03/11/20 23:40 23:40 01:07 WBC RBC Hgb 8.3 L D Hct 25.9 L D MCH MCHC RDW Plt Count 129 L Lymph % (Auto) Lymph # (Auto) Seg Neutrophils % Seg Neuts % (Manual) Lymphocytes % (Manual) Monocytes % (Manual) Nucleated RBC % Seg Neutrophils # Seg Neutrophils # Man Lymphocytes # (Manual) Monocytes # (Manual) PT 15.1 H INR 1.17 H D-Dimer Heparin Anti-Xa Level ABG pH POC ABG pCO2 POC ABG pO2 ABG pO2 ABG HCO3 ABG O2 Saturation ABG Base Excess ABG Hemoglobin ABG Oxyhemoglobin ABG Sodium ABG Potassium ABG Chloride ABG Glucose Oxyhemoglobin Carboxyhemoglobin Sodium 153 H Potassium 3.5 L D Chloride 107.5 H Carbon Dioxide 32 H BUN 32 H Creatinine 0.7 L Glucose 128 H POC Glucose Lactic Acid Calcium 8.1 L Ferritin AST ALT Alkaline Phosphatase 147 H Lactate Dehydrogenase Total Creatine Kinase CK-MB (CK-2) Rel Index Troponin T C-Reactive Protein Total Protein 5.5 L Albumin 1.8 L LDL Cholesterol Direct HDL Cholesterol Arterial Blood Glucose Arterial Blood Ionized Calcium Urine WBC (Auto) Vancomycin Trough Crossmatch 03/11/20 03/11/20 03/11/20 05:15 06:50 11:32 WBC RBC Hgb Hct MCH MCHC RDW Plt Count Lymph % (Auto) Lymph # (Auto) Seg Neutrophils % Seg Neuts % (Manual) Lymphocytes % (Manual) Monocytes % (Manual) Nucleated RBC % Seg Neutrophils # Seg Neutrophils # Man Lymphocytes # (Manual) Monocytes # (Manual) PT INR D-Dimer Heparin Anti-Xa Level < 0.10 L ABG pH POC ABG pCO2 POC ABG pO2 ABG pO2 ABG HCO3 ABG O2 Saturation ABG Base Excess ABG Hemoglobin ABG Oxyhemoglobin ABG Sodium ABG Potassium ABG Chloride ABG Glucose Oxyhemoglobin Carboxyhemoglobin Sodium Potassium Chloride Carbon Dioxide BUN Creatinine Glucose POC Glucose 141 H 130 H Lactic Acid Calcium Ferritin AST ALT Alkaline Phosphatase Lactate Dehydrogenase Total Creatine Kinase CK-MB (CK-2) Rel Index Troponin T C-Reactive Protein Total Protein Albumin LDL Cholesterol Direct HDL Cholesterol Arterial Blood Glucose Arterial Blood Ionized Calcium Urine WBC (Auto) Vancomycin Trough Crossmatch 03/11/20 03/11/20 03/11/20 15:34 18:15 23:47 WBC RBC Hgb Hct MCH MCHC RDW Plt Count Lymph % (Auto) Lymph # (Auto) Seg Neutrophils % Seg Neuts % (Manual) Lymphocytes % (Manual) Monocytes % (Manual) Nucleated RBC % Seg Neutrophils # Seg Neutrophils # Man Lymphocytes # (Manual) Monocytes # (Manual) PT INR D-Dimer Heparin Anti-Xa Level 0.10 L ABG pH POC ABG pCO2 POC ABG pO2 ABG pO2 ABG HCO3 ABG O2 Saturation ABG Base Excess ABG Hemoglobin ABG Oxyhemoglobin ABG Sodium ABG Potassium ABG Chloride ABG Glucose Oxyhemoglobin Carboxyhemoglobin Sodium Potassium Chloride Carbon Dioxide BUN Creatinine Glucose POC Glucose 118 H 147 H Lactic Acid Calcium Ferritin AST ALT Alkaline Phosphatase Lactate Dehydrogenase Total Creatine Kinase CK-MB (CK-2) Rel Index Troponin T C-Reactive Protein Total Protein Albumin LDL Cholesterol Direct HDL Cholesterol Arterial Blood Glucose Arterial Blood Ionized Calcium Urine WBC (Auto) Vancomycin Trough Crossmatch 03/12/20 03/12/20 03/12/20 00:57 00:57 00:57 WBC RBC 3.41 L Hgb 9.3 L Hct 29.8 L MCH 27 L MCHC 31 L RDW 26.3 H Plt Count Lymph % (Auto) Lymph # (Auto) Seg Neutrophils % Seg Neuts % (Manual) 90.0 H Lymphocytes % (Manual) 8.0 L Monocytes % (Manual) Nucleated RBC % Seg Neutrophils # Seg Neutrophils # Man Lymphocytes # (Manual) 0.7 L Monocytes # (Manual) PT INR D-Dimer Heparin Anti-Xa Level < 0.10 L ABG pH POC ABG pCO2 POC ABG pO2 ABG pO2 ABG HCO3 ABG O2 Saturation ABG Base Excess ABG Hemoglobin ABG Oxyhemoglobin ABG Sodium ABG Potassium ABG Chloride ABG Glucose Oxyhemoglobin Carboxyhemoglobin Sodium 146 H Potassium Chloride Carbon Dioxide 31 H BUN 29 H Creatinine 0.6 L Glucose 156 H POC Glucose Lactic Acid Calcium 8.3 L Ferritin AST ALT Alkaline Phosphatase 151 H Lactate Dehydrogenase Total Creatine Kinase CK-MB (CK-2) Rel Index Troponin T C-Reactive Protein Total Protein 6.0 L Albumin 1.7 L LDL Cholesterol Direct HDL Cholesterol Arterial Blood Glucose Arterial Blood Ionized Calcium Urine WBC (Auto) Vancomycin Trough Crossmatch 03/12/20 03/12/20 03/12/20 04:27 05:52 09:32 WBC RBC Hgb 10.2 L Hct 33.4 L MCH MCHC RDW Plt Count Lymph % (Auto) Lymph # (Auto) Seg Neutrophils % Seg Neuts % (Manual) Lymphocytes % (Manual) Monocytes % (Manual) Nucleated RBC % Seg Neutrophils # Seg Neutrophils # Man Lymphocytes # (Manual) Monocytes # (Manual) PT INR D-Dimer Heparin Anti-Xa Level 0.27 L ABG pH POC ABG pCO2 POC ABG pO2 ABG pO2 ABG HCO3 ABG O2 Saturation ABG Base Excess ABG Hemoglobin ABG Oxyhemoglobin ABG Sodium ABG Potassium ABG Chloride ABG Glucose Oxyhemoglobin Carboxyhemoglobin Sodium Potassium Chloride Carbon Dioxide BUN Creatinine Glucose POC Glucose 143 H Lactic Acid Calcium Ferritin AST ALT Alkaline Phosphatase Lactate Dehydrogenase Total Creatine Kinase CK-MB (CK-2) Rel Index Troponin T C-Reactive Protein Total Protein Albumin LDL Cholesterol Direct HDL Cholesterol Arterial Blood Glucose Arterial Blood Ionized Calcium Urine WBC (Auto) Vancomycin Trough Crossmatch 03/12/20 03/12/20 03/12/20 12:20 13:21 16:51 WBC RBC Hgb Hct MCH MCHC RDW Plt Count Lymph % (Auto) Lymph # (Auto) Seg Neutrophils % Seg Neuts % (Manual) Lymphocytes % (Manual) Monocytes % (Manual) Nucleated RBC % Seg Neutrophils # Seg Neutrophils # Man Lymphocytes # (Manual) Monocytes # (Manual) PT INR D-Dimer Heparin Anti-Xa Level < 0.10 L ABG pH POC ABG pCO2 50.8 H POC ABG pO2 135.6 H ABG pO2 ABG HCO3 ABG O2 Saturation ABG Base Excess ABG Hemoglobin 10.6 L ABG Oxyhemoglobin ABG Sodium ABG Potassium ABG Chloride ABG Glucose 113 H Oxyhemoglobin Carboxyhemoglobin Sodium Potassium Chloride Carbon Dioxide BUN Creatinine Glucose POC Glucose 151 H Lactic Acid Calcium Ferritin AST ALT Alkaline Phosphatase Lactate Dehydrogenase Total Creatine Kinase CK-MB (CK-2) Rel Index Troponin T C-Reactive Protein Total Protein Albumin LDL Cholesterol Direct HDL Cholesterol Arterial Blood Glucose 113 H Arterial Blood Ionized Calcium Urine WBC (Auto) Vancomycin Trough Crossmatch 03/13/20 03/13/20 03/13/20 00:31 01:07 01:07 WBC RBC 3.03 L Hgb 8.3 L Hct 26.5 L D MCH MCHC RDW 24.5 H Plt Count Lymph % (Auto) 8.8 L Lymph # (Auto) 0.8 L Seg Neutrophils % 85.3 H Seg Neuts % (Manual) Lymphocytes % (Manual) Monocytes % (Manual) Nucleated RBC % Seg Neutrophils # Seg Neutrophils # Man Lymphocytes # (Manual) Monocytes # (Manual) PT INR D-Dimer Heparin Anti-Xa Level ABG pH POC ABG pCO2 POC ABG pO2 ABG pO2 ABG HCO3 ABG O2 Saturation ABG Base Excess ABG Hemoglobin ABG Oxyhemoglobin ABG Sodium ABG Potassium ABG Chloride ABG Glucose Oxyhemoglobin Carboxyhemoglobin Sodium 150 H Potassium Chloride Carbon Dioxide 34 H BUN 30 H Creatinine 0.7 L Glucose 132 H POC Glucose 123 H Lactic Acid Calcium 8.1 L Ferritin AST ALT Alkaline Phosphatase 150 H Lactate Dehydrogenase Total Creatine Kinase CK-MB (CK-2) Rel Index Troponin T C-Reactive Protein Total Protein 5.8 L Albumin 1.8 L LDL Cholesterol Direct HDL Cholesterol Arterial Blood Glucose Arterial Blood Ionized Calcium Urine WBC (Auto) Vancomycin Trough Crossmatch 03/13/20 03/13/20 02:43 05:22 WBC RBC Hgb Hct MCH MCHC RDW Plt Count Lymph % (Auto) Lymph # (Auto) Seg Neutrophils % Seg Neuts % (Manual) Lymphocytes % (Manual) Monocytes % (Manual) Nucleated RBC % Seg Neutrophils # Seg Neutrophils # Man Lymphocytes # (Manual) Monocytes # (Manual) PT INR D-Dimer Heparin Anti-Xa Level ABG pH 7.474 H POC ABG pCO2 48.2 H POC ABG pO2 123.0 H ABG pO2 ABG HCO3 ABG O2 Saturation ABG Base Excess ABG Hemoglobin 9.8 L ABG Oxyhemoglobin ABG Sodium ABG Potassium ABG Chloride ABG Glucose 117 H Oxyhemoglobin Carboxyhemoglobin Sodium Potassium Chloride Carbon Dioxide BUN Creatinine Glucose POC Glucose 111 H Lactic Acid Calcium Ferritin AST ALT Alkaline Phosphatase Lactate Dehydrogenase Total Creatine Kinase CK-MB (CK-2) Rel Index Troponin T C-Reactive Protein Total Protein Albumin LDL Cholesterol Direct HDL Cholesterol Arterial Blood Glucose 117 H Arterial Blood Ionized Calcium 4.5 L Urine WBC (Auto) Vancomycin Trough Crossmatch
[2020-03-13] MEDS: DOBUTamine/D5W 500 MG/250 ML 500 MG/250 ML BAG IV SCH (10:14)
[2020-03-13] MEDS: PYRAZINAMIDE 500 MG TAB PO SCH (10:15)
[2020-03-13] MEDS: FUROSEMIDE 40 MG/4 ML INJ IV SCH ×2 (10:15→21:43)
[2020-03-13] MEDS: PYRIDOXINE 50 MG TAB PO SCH (10:15)
[2020-03-13] MEDS: ISONIAZID 300 MG TAB PO SCH (10:15)
[2020-03-13] MEDS: ETHAMBUTOL 400 MG TAB PO SCH (10:15)
[2020-03-13] MEDS: rifAMPin 300 MG CAP PO SCH (10:15)
[2020-03-13] MEDS: FAMOTIDINE 20 MG TAB PO SCH ×2 (10:15→21:43)
[2020-03-13] MEDS: AMIODARONE 200 MG TAB PO SCH (10:16)
[2020-03-13] MEDS: GLYCOPYRROLATE 1 MG TAB PO SCH ×2 (10:16→21:43)
[2020-03-13] MEDS: SPIRONOLACTONE 25 MG TAB PO SCH (10:16)
[2020-03-13] MEDS: SENNOSIDES/DOCUSATE SODIUM 8.6/50 MG TAB PO SCH ×2 (10:16→21:43)
[2020-03-13] MEDS: LISINOPRIL 5 MG TAB PO SCH (10:17)
[2020-03-13] MEDS: carvediloL 6.25 MG TAB PO SCH ×2 (10:17→21:44)
--- NOTE | 2020-03-13 11:25 | Progress Note ---
Assessment and Plan S/P PEA arrest 03/04 Acute respiratory failure Bilateral pneumonia Dilated cardiomyopathy, uncertain chronicity LVEF 15 to 20% by echo this presentation Reports of Transient VF following multiple rounds of epi during code BLUE on 02/24 no strips available for review currently in sinus rhythm on amiodarone for suppression. 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 Continue guideline directed optimal medical therapy for dilated cardiomyopathy as tolerated. Subjective Date of service: 03/13/20 Principal diagnosis: Acute respiratory failure Interval history: Patient was re-intubated on 03/12/20. IV Dobutamine was held for unclear reasons. Objective Vital Signs Temp Pulse Pulse Resp BP Pulse Ox 03/13/20 10:30 80 26 H 102/66 98 03/13/20 10:17 81 95/60 03/13/20 10:16 92 H 95/60 03/13/20 10:00 91 H 24 99/72 98 03/13/20 09:30 70 22 107/70 99 03/13/20 09:00 78 23 100/67 99 03/13/20 08:30 68 26 H 110/76 99 03/13/20 08:00 97.6 F 71 71 26 H 110/74 100 03/13/20 07:30 73 26 H 93/62 99 03/13/20 07:00 73 23 111/75 99 03/13/20 06:30 85 15 112/75 100 03/13/20 06:00 72 18 110/76 100 03/13/20 05:30 74 26 H 108/74 100 03/13/20 05:00 81 13 100/68 100 03/13/20 04:30 74 20 97/63 100 03/13/20 04:00 98.5 F 89 74 25 H 98/68 100 03/13/20 03:30 81 25 H 95/66 100 03/13/20 03:04 79 76/53 100 03/13/20 03:00 85 26 H 76/53 100 03/13/20 02:30 87 26 H 73/49 99 03/13/20 02:00 89 26 H 76/51 100 03/13/20 01:30 99 H 24 87/58 100 03/13/20 01:00 100 H 19 89/60 99 03/13/20 00:30 101 H 16 81/59 100 03/13/20 00:00 98.2 F 98 H 96 H 26 H 80/54 99 03/12/20 23:30 103 H 22 86/62 100 03/12/20 23:19 96 H 93/48 100 03/12/20 23:00 97 H 24 82/51 100 03/12/20 22:41 100 H 26 H 79/51 99 03/12/20 22:30 100 H 26 H 79/51 99 03/12/20 22:01 105 H 92/61 03/12/20 22:00 106 H 26 H 92/61 99 03/12/20 21:30 103 H 26 H 104/71 100 03/12/20 21:00 109 H 26 H 97/70 99 03/12/20 20:30 112 H 27 H 91/66 99 03/12/20 20:00 97.6 F 114 H 117 H 26 H 102/71 99 03/12/20 19:30 112 H 26 H 89/59 99 03/12/20 19:00 113 H 26 H 92/61 99 03/12/20 18:30 116 H 35 H 96/65 99 03/12/20 18:00 118 H 29 H 97/67 98 03/12/20 17:30 118 H 31 H 103/74 99 03/12/20 17:00 118 H 29 H 94/69 98 03/12/20 16:30 117 H 30 H 98/71 98 03/12/20 16:00 98.7 F 119 H 116 H 30 H 104/76 99 03/12/20 15:41 118 H 101/76 100 03/12/20 15:30 119 H 30 H 104/77 100 03/12/20 15:00 114 H 28 H 102/72 100 03/12/20 14:30 114 H 31 H 106/78 100 03/12/20 14:13 32 H 03/12/20 14:00 113 H 33 H 108/80 100 03/12/20 13:30 115 H 30 H 116/86 100 03/12/20 13:00 117 H 34 H 122/93 100 03/12/20 12:30 103 H 27 H 118/87 100 03/12/20 12:00 97.6 F 110 H 105 H 27 H 107/71 99 03/12/20 11:30 112 H 34 H 108/84 94 03/12/20 11:27 30 H - Physical Examination General: Other (intubated, on the vent) HEENT: Positive: PERRL Neck: Positive: neck supple Cardiac: Positive: Reg Rate and Rhythm - Labs and Meds Cardiac Enzymes 03/13/20 Range/Units 01:07 AST 33 (5-40) units/L CBC 03/13/20 Range/Units 01:07 WBC 8.7 (4.5-11.0) K/mm3 RBC 3.03 L (3.65-5.03) M/mm3 Hgb 8.3 L (11.8-15.2) gm/dl Hct 26.5 L D (35.5-45.6) % Plt Count 163 (140-440) K/mm3 Lymph # (Auto) 0.8 L (1.2-5.4) K/mm3 [place] # (Auto) 0.5 (0.0-0.8) K/mm3 Eos # (Auto) 0.0 (0.0-0.4) K/mm3 Baso # (Auto) 0.0 (0.0-0.1) K/mm3 Comprehensive Metabolic Panel 03/13/20 Range/Units 01:07 Sodium 150 H (137-145) mmol/L Potassium 3.6 (3.6-5.0) mmol/L Chloride 104.5 (98-107) mmol/L Carbon Dioxide 34 H (22-30) mmol/L BUN 30 H (9-20) mg/dL Creatinine 0.7 L (0.8-1.3) mg/dL Glucose 132 H (75-100) mg/dL Calcium 8.1 L (8.4-10.2) mg/dL AST 33 (5-40) units/L ALT 14 (7-56) units/L Alkaline Phosphatase 150 H (35-129) units/L Total Protein 5.8 L (6.3-8.2) g/dL Albumin 1.8 L (3.9-5) g/dL
--- NOTE | 2020-03-13 15:09 | Progress Note ---
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 PRN Pain MILD(1-3)/Fever >100.5/SALGADO Albuterol 2.5 mg 03/05/20 08:20 03/05/20 12:27 Proventil IH 2.5 mg Q4HRT PRN Administration Shortness Of Breath Amiodarone HCl 200 mg 03/01/20 12:00 03/13/20 10:16 Cordarone PO 200 mg QDAY AIDEE Administration Lipase/Protease/Amylase 1 each 02/27/20 10:25 Pancreaze 10,500 Unit FEEDTUBE PRN PRN For Clogged Feeding Tube Carvedilol 6.25 mg 03/02/20 22:00 03/13/20 10:17 Coreg PO Not Given BID AIDEE Dextrose 50 ml 02/27/20 07:16 02/27/20 18:18 D50w (25gm) Syringe IV 50 ml PRN PRN Administration Hypoglycemia Protocol Ethambutol HCl 800 mg 02/27/20 12:00 03/13/20 10:15 Myambutol PO 800 mg QDAY AIDEE Administration Famotidine 20 mg 02/28/20 10:00 03/13/20 10:15 Pepcid PO 20 mg BID AIDEE Administration Fentanyl 50 mcg 03/07/20 10:23 03/13/20 14:20 Sublimaze IV 50 mcg Q2H PRN Administration Pain , Severe (7-10) Furosemide 40 mg 03/12/20 09:00 03/13/20 10:15 Lasix IV 40 mg BID AIDEE Administration Glycopyrrolate 1 mg 03/05/20 10:00 03/13/20 10:16 Robinul PO 1 mg BID AIDEE Administration Haloperidol Lactate 5 mg 03/06/20 16:22 03/11/20 17:05 Haldol IV 5 mg Q6HR PRN Administration Anxiety Hydrophilic Ointment 1 applic 03/05/20 01:44 Vaseline Lip Therapy TP Q2HR PRN Dry Lips Dexmedetomidine HCl 200 mcg/ 50 mls @ 2.268 mls/hr 03/01/20 12:00 03/03/20 11:10 Sodium Chloride IV 0 mcg/kg/hr TITRATE AIDEE 0 mls/hr Titration Protocol 0.2 MCG/KG/HR Norepinephrine 4 mg in 250 mls @ 7.5 mls/hr 03/04/20 03:00 03/13/20 14:21 Levophed Drip 4 Mg/Ns 250 Ml IV 0 mcg/min TITR AIDEE 0 mls/hr Titration Protocol 2 MCG/MIN Fentanyl Citrate 2,000 mcg in 100 mls @ 2.268 mls/hr 03/05/20 02:00 03/13/20 10:00 Fentanyl Drip Premix IV 3 mcg/kg/hr TITR AIDEE 6.804 mls/hr Titration Protocol 1 MCG/KG/HR Heparin Sodium/Sodium Chloride 25,000 unit in 500 mls @ 14 mls/hr 03/10/20 20:00 03/13/20 02:26 Heparin/ 0.45% Nacl-25,000 Unit/500 Ml IV 1,300 units/hr TITR AIDEE 26 mls/hr Titration Protocol 700 UNITS/HR Dobutamine HCl/Dextrose 500 mg in 250 mls @ 3.402 mls/hr 03/12/20 12:00 03/13/20 10:14 Dobutrex Drip 500mg/D5w 250ml IV 2.5 mcg/kg/min TITR AIDEE 3.402 mls/hr Administration 2.5 MCG/KG/MIN Isoniazid 300 mg 02/27/20 12:00 03/13/20 10:15 Isoniazid PO 300 mg QDAY [facility] Administration Lisinopril 2.5 mg 03/03/20 10:00 03/13/20 10:17 Zestril PO Not Given QDAY [facility] Magnesium Hydroxide 30 ml 02/25/20 04:16 Milk Of Magnesia PO Q4H PRN Constipation Methadone HCl 10 mg 03/02/20 14:00 03/13/20 14:21 Dolophine PO 10 mg Q8HR [facility] Administration Multi-Ingred Cream/Lotion/Oil/Oint 1 applic 03/05/20 01:44 Artificial Tears Ophth Oint OU Q4HR PRN Dry Eye(s) Ondansetron HCl 4 mg 02/25/20 04:16 Zofran IV Q8H PRN Nausea And Vomiting Pyrazinamide 1,000 mg 02/29/20 10:00 03/13/20 10:15 Pyrazinamide PO 1,000 mg QDAY [facility] Administration Pyridoxine HCl 50 mg 02/27/20 12:00 03/13/20 10:15 Vitamin B-6 PO 50 mg QDAY AIDEE Administration Rifampin 600 mg 02/27/20 12:00 03/13/20 10:15 Rifadin PO 600 mg QDAY AIDEE Administration Senna/Docusate Sodium 2 tab 03/02/20 10:00 03/13/20 10:16 Senokot S PO 2 tab BID AIDEE Administration Simple Syrup 15 ml 02/27/20 10:25 Simple Syrup FEEDTUBE PRN PRN Hypoglycemia Simple Syrup 30 ml 02/27/20 10:25 Simple Syrup FEEDTUBE PRN PRN Hypoglycemia Sodium Bicarbonate 325 mg 02/27/20 10:25 Sodium Bicarbonate FEEDTUBE PRN PRN For Clogged Feeding Tube Sodium Chloride 10 ml 02/25/20 10:00 03/13/20 10:16 Sodium Chloride Flush Syringe 10 Ml IV 10 ml BID AIDEE Administration Sodium Chloride 10 ml 02/25/20 04:16 03/10/20 00:45 Sodium Chloride Flush Syringe 10 Ml IV 10 ml PRN PRN Administration LINE FLUSH Spironolactone 25 mg 03/03/20 10:00 03/13/20 10:16 Aldactone PO 25 mg QDAY AIDEE Administration Nutrition/Malnutrition Assess - Dietary Evaluation Nutrition/Malnutrition Findings: Nutrition Notes Start: 02/25/20 10:14 Freq: Status: Active Protocol: Document 03/07/20 13:09 DAYANARA (Rec: 03/07/20 13:51 DAYANARA [id number]) Co-Sign 03/07/20 13:09 MK Nutrition Notes Initial or Follow up Reassessment Current Diagnosis Decubitus(Pressure Ulcer), Sepsis,Respiratory Failure Other Pertinent Diagnosis Pneu, UTI, anemia, paraplegia, buttocks PU,Pulmonary TB Current Diet Osmolite 1.5 at 50ml/hr Labs/Tests Na 151 BUN 35 BG 134 Pertinent Medications Vitamin B6 Lasix Height 5 ft 9 in Weight 45.359 kg [place] Body Weight (kg) 72.72 BMI 14.8 Weight Status Underweight Subjective/Other Information F/U for NG replacement and stable TF. TF running at goal rate and pt tolerating. Pt reintubated due to cardiac arrest event. Percent of energy/protein needs met: 94%/100% Burn Absent Trauma Absent Current % PO Negligible Minimum of two criteria Yes Muscle Mass Mild Depletion (non-severe) Fluid Accumulation Moderate to Severe (severe) Reduced It Application Administrator Strength Measurably Reduced (severe) #3 Nutrition Diagnosis Increased nutrient needs ( specify in comment below) Diagnosis Progress(for reassessment Continues documentation) #2 Nutrition Diagnosis Inadequate oral intake Etiology NG tube placed, TF restarted As Evidenced by Signs and Symptoms Pt tolerating TF at goal rate Diagnosis Progress(for reassessment Continues documentation) #1 Nutrition Diagnosis Malnutrition Diagnosis Progress(for reassessment Continues documentation) Is patient on ventilator? Yes Is Patient Ambulatory and/or Out of Bed No REE-([facility]-confined to bed) 1592.628 Kcal/Kg value to use for calculation 42 Approximate Energy Requirements Using 1905 kcal/Kg Calculation Used for Recommendations Kcal/kg Additional Notes Protein: 54-91g (1.2-2g/kg) Fluid: 1ml/kcal Nutrition Intervention Change Diet Order: Continue TF Nutrition Support: Osmolite 1.5 at 50ml/hr. Flush 250ml q4h for hypernatremia. Flush 150ml q4h once hypernatremia resolved. Kcal 1,800 Protein (gm) 75 Fluid (mL) 914 Goal #1 TF tolerance Goal #2 Meet at least 100% of energy and protein needs via TF. Goal #3 Wound healing Goal #4 Wt maintenance or wt gain Anticipated Discharge Needs: Unable to determine at this time Follow-Up By: 03/14/20 Additional Comments F/U for stable TF, hypernatremia, plan of care
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
[2020-03-14 01:01] LABS: Basophils % (Auto) 0.5 % (0.0-1.8); Eosinophils % (Auto) 0.3 % (0.0-4.3); Hematocrit 25.6 % (35.5-45.6); Lymphocytes # (Auto) 0.8 K/mm3 (1.2-5.4); Lymphocytes % (Auto) 9.4 % (13.4-35.0); Mean Corpuscular HGB Conc 31 % (32-34); Mean Corpuscular Volume 87 fl (84-94); Monocytes # (Auto) 0.3 K/mm3 (0.0-0.8); Platelet Count 183 K/mm3 (140-440); Red Blood Count 2.94 M/mm3 (3.65-5.03)
[2020-03-14 01:12] LABS: Alanine Aminotransferase 15 units/L (7-56); Albumin 1.6 g/dL (3.9-5); Blood Urea Nitrogen 29 mg/dL (9-20); Calcium 8.3 mg/dL (8.4-10.2); Hemolysis Index 3; Red Cell Distribution Width 24.4 % (13.2-15.2)
[2020-03-14 01:16] LABS: BUN/Creatinine Ratio 41
[2020-03-14] MEDS: fentaNYL DRIP Premix 2,000 MCG/100 ML BAG IV SCH ×3 (02:32→20:18)
[2020-03-14] MEDS: fentaNYL 100 MCG/2 ML INJ IV PRN ×2 (04:34→12:23)
[2020-03-14 05:19] LABS: Hemoglobin 7.9 gm/dl (11.8-15.2)
[2020-03-14] MEDS: METHADONE 10 MG TAB PO SCH ×4 (06:12→21:22)
[2020-03-14] MEDS: AMIODARONE 200 MG TAB PO SCH (09:13)
[2020-03-14] MEDS: SPIRONOLACTONE 25 MG TAB PO SCH (09:13)
[2020-03-14] MEDS: GLYCOPYRROLATE 1 MG TAB PO SCH ×2 (09:14→21:22)
[2020-03-14] MEDS: LISINOPRIL 5 MG TAB PO SCH (09:14)
[2020-03-14] MEDS: carvediloL 6.25 MG TAB PO SCH ×2 (09:14→21:22)
[2020-03-14] MEDS: SENNOSIDES/DOCUSATE SODIUM 8.6/50 MG TAB PO SCH ×2 (09:14→21:21)
[2020-03-14] MEDS: FAMOTIDINE 20 MG TAB PO SCH ×2 (09:15→21:22)
[2020-03-14] MEDS: PYRAZINAMIDE 500 MG TAB PO SCH (09:15)
[2020-03-14] MEDS: PYRIDOXINE 50 MG TAB PO SCH (09:16)
[2020-03-14] MEDS: rifAMPin 300 MG CAP PO SCH (09:16)
[2020-03-14] MEDS: FUROSEMIDE 40 MG/4 ML INJ IV SCH ×2 (09:16→21:22)
[2020-03-14] MEDS: ETHAMBUTOL 400 MG TAB PO SCH (09:16)
[2020-03-14] MEDS: ISONIAZID 300 MG TAB PO SCH (09:16)
[2020-03-14] MEDS ORDERED: POTASSIUM CHLORIDE 20 MEQ PACKET FEEDTUBE ONE (10:00)
--- NOTE | 2020-03-14 10:58 | Event Note ---
Date: 03/14/20 Family meeting today with mother and long time girlfriend, nurse and CM at bedside with patient. I have thoroughly explained to patient and his family that his overall prognosis is extremely poor. I have explained to them his lung issues and vent requirements. We talked about his cardiomyopathy that is likely related to methadone/opioid abuse, we have talked about his hypercoaguable state and the inability to get biopsy secondary to vent requirements. The family has expressed that they would want to take the patient home and the patient expressed that he wants to go home. He will likely need trach as he not going to be a candidate for extubation as this is his third intubation and his heart failure is not able to be amended. Will consult surgery for trach and CM present for entire conversation to help set up hospice. Discussed with mother who is in agreement. Total time 60 minutes. Will go ahead and increase methadone to q4 hours as this was patient's home regimen. CCT 60
--- NOTE | 2020-03-14 12:04 | Progress Note ---
Assessment and Plan S/P PEA arrest 03/04 Acute respiratory failure s/p reintubation Bilateral pneumonia Dilated cardiomyopathy, uncertain chronicity LVEF 15 to 20% by echo this presentation Reports of Transient VF following multiple rounds of epi during code BLUE on 02/24 no strips available for review currently in sinus rhythm on amiodarone for suppression. 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 Continue guideline directed optimal medical therapy for dilated cardiomyopathy as tolerated. Prognosis is poor. Conservative cardiac management. Subjective Date of service: 03/14/20 Principal diagnosis: Acute respiratory failure Interval history: No cardiac events overnight. Objective Vital Signs Temp Pulse Pulse Resp BP Pulse Ox 03/14/20 11:00 81 26 H 106/73 96 03/14/20 10:30 77 26 H 115/81 98 03/14/20 10:00 78 26 H 116/75 99 03/14/20 09:30 77 17 111/74 97 03/14/20 09:28 69 111/74 99 03/14/20 09:17 69 109/70 98 03/14/20 09:14 71 123/85 03/14/20 09:13 77 123/85 03/14/20 09:00 85 19 123/85 97 03/14/20 08:30 90 25 H 117/82 98 03/14/20 08:00 97.6 F 86 62 22 104/77 97 03/14/20 07:30 71 26 H 101/69 98 03/14/20 07:01 73 26 H 110/70 98 03/14/20 06:30 71 26 H 87/69 98 03/14/20 06:01 91 H 16 112/68 98 03/14/20 05:30 65 26 H 104/66 99 03/14/20 05:08 88 106/73 99 03/14/20 05:00 77 26 H 106/73 98 03/14/20 04:31 67 26 H 113/73 99 03/14/20 04:00 68 69 26 H 89/54 98 03/14/20 03:35 98.2 F 03/14/20 03:30 69 26 H 95/62 98 03/14/20 03:00 70 26 H 89/58 98 03/14/20 02:30 71 26 H 93/60 98 03/14/20 02:00 75 26 H 94/63 98 03/14/20 01:30 72 25 H 87/58 98 03/14/20 01:00 91 H 17 101/65 98 03/14/20 00:35 69 26 H 89/54 98 03/14/20 00:30 71 26 H 99/69 99 03/14/20 00:00 63 57 L 26 H 96/61 98 03/13/20 23:30 66 26 H 95/64 98 03/13/20 23:26 97.3 F L 03/13/20 23:11 71 26 H 97/65 97 03/13/20 23:00 75 26 H 97/65 97 03/13/20 22:30 90 26 H 107/69 100 03/13/20 22:00 81 23 99/66 98 03/13/20 21:44 82 98/69 03/13/20 21:30 79 26 H 98/69 98 03/13/20 21:00 87 16 101/74 98 03/13/20 20:44 77 109/77 99 03/13/20 20:30 75 19 109/71 100 03/13/20 20:00 89 77 26 H 109/77 100 03/13/20 19:47 97.8 F 03/13/20 19:30 87 22 110/78 100 03/13/20 19:00 87 18 106/76 98 03/13/20 18:30 79 25 H 89/64 97 03/13/20 18:00 92 H 19 95/69 98 03/13/20 17:50 77 84/55 97 03/13/20 17:30 91 H 23 102/69 98 03/13/20 17:00 77 26 H 84/55 97 03/13/20 16:30 84 26 H 98/69 97 03/13/20 16:00 98.1 F 77 84 26 H 96/63 99 03/13/20 15:30 76 26 H 84/57 98 03/13/20 15:00 83 26 H 95/69 99 03/13/20 14:30 91 H 26 H 109/78 96 03/13/20 14:00 86 21 96/66 98 03/13/20 13:30 80 16 102/71 99 03/13/20 13:05 79 108/73 98 03/13/20 13:00 88 22 108/73 97 03/13/20 12:30 85 20 103/64 99 - Physical Examination General: Other (intubated, on the vent) HEENT: Positive: PERRL Cardiac: Positive: Reg Rate and Rhythm - Labs and Meds Cardiac Enzymes 03/14/20 Range/Units 00:25 AST 34 (5-40) units/L CBC 03/14/20 03/14/20 Range/Units 00:25 04:16 WBC 8.2 (4.5-11.0) K/mm3 RBC 2.94 L (3.65-5.03) M/mm3 Hgb 8.0 L 7.9 L (11.8-15.2) gm/dl Hct 25.6 L 25.0 L (35.5-45.6) % Plt Count 183 197 (140-440) K/mm3 Lymph # (Auto) 0.8 L (1.2-5.4) K/mm3 [place] # (Auto) 0.3 (0.0-0.8) K/mm3 Eos # (Auto) 0.0 (0.0-0.4) K/mm3 Baso # (Auto) 0.0 (0.0-0.1) K/mm3 Comprehensive Metabolic Panel 03/14/20 Range/Units 00:25 Sodium 143 (137-145) mmol/L Potassium 3.5 L (3.6-5.0) mmol/L Chloride 98.9 (98-107) mmol/L Carbon Dioxide 34 H (22-30) mmol/L BUN 29 H (9-20) mg/dL Creatinine 0.7 L (0.8-1.3) mg/dL Glucose 112 H (75-100) mg/dL Calcium 8.3 L (8.4-10.2) mg/dL AST 34 (5-40) units/L ALT 15 (7-56) units/L Alkaline Phosphatase 138 H (35-129) units/L Total Protein 5.9 L (6.3-8.2) g/dL Albumin 1.6 L (3.9-5) g/dL
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
[2020-03-14] MEDS: HEPARIN/ 0.45% NACL DRIP 25,000 UNIT/500 ML BAG IV SCH (13:36)
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
[2020-03-14] MEDS: HALOPERIDOL LACTATE 5 MG/1 ML INJ IV PRN (20:19)
[2020-03-15] MEDS: DOBUTamine/D5W 500 MG/250 ML 500 MG/250 ML BAG IV SCH (00:27)
[2020-03-15] MEDS: fentaNYL 100 MCG/2 ML INJ IV PRN ×4 (00:31→10:39)
[2020-03-15 01:14] LABS: Basophils % (Auto) 0.2 % (0.0-1.8); Eosinophils % (Auto) 0.6 % (0.0-4.3); Hematocrit 24.8 % (35.5-45.6); Hemoglobin 7.8 gm/dl (11.8-15.2); Lymphocytes # (Auto) 0.8 K/mm3 (1.2-5.4); Lymphocytes % (Auto) 10.3 % (13.4-35.0); Mean Corpuscular HGB Conc 32 % (32-34); Mean Corpuscular Volume 87 fl (84-94); Monocytes # (Auto) 0.4 K/mm3 (0.0-0.8); Monocytes % (Auto) 4.4 % (0.0-7.3); Platelet Count 239 K/mm3 (140-440); Red Blood Count 2.85 M/mm3 (3.65-5.03)
[2020-03-15 01:16] LABS: Red Cell Distribution Width 24.7 % (13.2-15.2)
[2020-03-15] MEDS: METHADONE 10 MG TAB PO SCH ×4 (01:29→14:10)
[2020-03-15 01:42] LABS: Alanine Aminotransferase 15 units/L (7-56); Albumin 2.1 g/dL (3.9-5); Blood Urea Nitrogen 28 mg/dL (9-20); Calcium 7.9 mg/dL (8.4-10.2); Hemolysis Index 6
[2020-03-15 01:44] LABS: BUN/Creatinine Ratio 40
[2020-03-15] MEDS: fentaNYL DRIP Premix 2,000 MCG/100 ML BAG IV SCH ×2 (05:14→10:40)
[2020-03-15] MEDS: HEPARIN/ 0.45% NACL DRIP 25,000 UNIT/500 ML BAG IV SCH (08:38)
[2020-03-15] MEDS: HALOPERIDOL LACTATE 5 MG/1 ML INJ IV PRN (08:39)
[2020-03-15] MEDS: SPIRONOLACTONE 25 MG TAB PO SCH (10:00)
[2020-03-15] MEDS: carvediloL 6.25 MG TAB PO SCH (10:00)
--- NOTE | 2020-03-15 10:12 | Progress Note ---
Assessment and Plan S/P PEA arrest 03/04 Acute respiratory failure s/p reintubation Bilateral pneumonia Dilated cardiomyopathy, uncertain chronicity LVEF 15 to 20% by echo this presentation Reports of Transient VF following multiple rounds of epi during code BLUE on 02/24 no strips available for review currently in sinus rhythm on amiodarone for suppression. 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 Continue guideline directed optimal medical therapy for dilated cardiomyopathy as tolerated. Prognosis is poor. Conservative cardiac management. Subjective Date of service: 03/15/20 Principal diagnosis: Acute respiratory failure Interval history: No interval cardiac changes. Objective Vital Signs Temp Pulse Pulse Resp BP Pulse Ox 03/15/20 08:30 71 26 H 113/73 95 03/15/20 08:19 71 119/78 100 03/15/20 08:00 97.4 F L 104 H 23 127/83 93 03/15/20 07:30 96 H 19 131/86 98 03/15/20 07:00 90 18 108/74 97 03/15/20 06:30 74 26 H 107/73 95 03/15/20 06:00 69 26 H 116/74 96 03/15/20 05:30 78 25 H 114/78 93 03/15/20 05:00 75 26 H 116/74 94 03/15/20 04:30 69 26 H 110/74 99 03/15/20 04:29 67 110/74 99 03/15/20 04:25 97.9 F 03/15/20 04:00 97.9 F 73 71 17 113/73 98 03/15/20 03:30 77 26 H 110/70 98 03/15/20 03:00 70 26 H 106/71 98 03/15/20 02:30 70 25 H 106/68 98 03/15/20 02:00 103 H 29 H 130/88 98 03/15/20 01:30 84 26 H 115/75 98 03/15/20 01:00 79 26 H 110/73 98 03/15/20 00:30 72 26 H 105/69 97 03/15/20 00:00 97.7 F 70 66 26 H 98/64 97 03/14/20 23:47 80 23 102/68 98 03/14/20 23:44 71 102/68 97 03/14/20 23:30 74 26 H 100/68 98 03/14/20 23:00 70 26 H 98/64 97 03/14/20 22:30 69 26 H 103/67 97 03/14/20 22:00 73 23 111/73 97 03/14/20 21:30 91 H 26 H 110/79 98 03/14/20 21:22 85 112/77 03/14/20 21:13 87 112/72 98 03/14/20 21:00 68 26 H 112/72 98 03/14/20 20:30 74 26 H 102/67 98 03/14/20 20:00 97.3 F L 66 70 26 H 105/70 98 03/14/20 19:30 86 14 109/74 99 03/14/20 19:00 69 26 H 105/73 97 03/14/20 18:30 84 22 121/83 96 03/14/20 18:00 89 24 105/78 99 03/14/20 17:31 98 H 18 117/74 98 03/14/20 17:00 68 26 H 100/68 97 03/14/20 16:38 74 96/63 98 03/14/20 16:31 76 19 96/63 98 03/14/20 16:00 97.6 F 74 74 26 H 106/75 96 03/14/20 15:30 72 26 H 104/69 98 03/14/20 15:00 68 26 H 101/65 99 03/14/20 14:30 69 26 H 95/64 97 03/14/20 14:00 69 26 H 103/71 100 03/14/20 13:30 83 25 H 99/69 98 03/14/20 13:00 87 26 H 91/65 98 03/14/20 12:31 85 98/68 98 03/14/20 12:30 73 26 H 98/68 97 03/14/20 12:00 97.6 F 72 81 26 H 100/73 99 03/14/20 11:30 76 25 H 93/58 97 03/14/20 11:00 81 26 H 106/73 96 03/14/20 10:30 77 26 H 115/81 98 - Physical Examination General: Other (intubated, on the vent) HEENT: Positive: PERRL Cardiac: Positive: Reg Rate and Rhythm - Labs and Meds Cardiac Enzymes 03/15/20 Range/Units 00:46 AST 33 (5-40) units/L CBC 03/15/20 Range/Units 00:46 WBC 8.2 (4.5-11.0) K/mm3 RBC 2.85 L (3.65-5.03) M/mm3 Hgb 7.8 L (11.8-15.2) gm/dl Hct 24.8 L (35.5-45.6) % Plt Count 239 (140-440) K/mm3 Lymph # (Auto) 0.8 L (1.2-5.4) K/mm3 [place] # (Auto) 0.4 (0.0-0.8) K/mm3 Eos # (Auto) 0.0 (0.0-0.4) K/mm3 Baso # (Auto) 0.0 (0.0-0.1) K/mm3 Comprehensive Metabolic Panel 03/15/20 Range/Units 00:46 Sodium 141 (137-145) mmol/L Potassium 4.2 (3.6-5.0) mmol/L Chloride 97.0 L (98-107) mmol/L Carbon Dioxide 35 H (22-30) mmol/L BUN 28 H (9-20) mg/dL Creatinine 0.7 L (0.8-1.3) mg/dL Glucose 110 H (75-100) mg/dL Calcium 7.9 L (8.4-10.2) mg/dL AST 33 (5-40) units/L ALT 15 (7-56) units/L Alkaline Phosphatase 140 H (35-129) units/L Total Protein 5.3 L (6.3-8.2) g/dL Albumin 2.1 L (3.9-5) g/dL
[2020-03-15] MEDS: AMIODARONE 200 MG TAB PO SCH (12:29)
[2020-03-15] MEDS: ISONIAZID 300 MG TAB PO SCH (12:31)
[2020-03-15] MEDS: FUROSEMIDE 40 MG/4 ML INJ IV SCH (12:32)
[2020-03-15] MEDS: ETHAMBUTOL 400 MG TAB PO SCH (12:32)
[2020-03-15] MEDS: FAMOTIDINE 20 MG TAB PO SCH (12:33)
[2020-03-15] MEDS: PYRAZINAMIDE 500 MG TAB PO SCH (12:34)
[2020-03-15] MEDS: rifAMPin 300 MG CAP PO SCH (12:34)
[2020-03-15] MEDS: GLYCOPYRROLATE 1 MG TAB PO SCH (12:34)
[2020-03-15] MEDS: SENNOSIDES/DOCUSATE SODIUM 8.6/50 MG TAB PO SCH (12:35)
--- NOTE | 2020-03-15 12:37 | Progress Note ---
Assessment and Plan 44 y/o male admitted with hypoxemia, fever and brody catheter pain, subsequent cardiac arrest in the ED, resuscitated and intubated, now with hypotension, anion gap metabolic acidosis, acute respiratory failure, hypoglycemia and vtach/vfib, found to have severe left sided heart disease, now with cardiac arrest and re-intubation but awakens off sedation and follows commands. 03/15/2020: Awaiting family decision, will continue supportive measures. 1. Pulm-Back to minimal vent settings. I dropped FiO2 down 40 given sats in the high 90's. Appreciate Cards help with dobutamine. Gave nursing some parameters for this drug. Patient awake on sedation but will start to wean off in the next 48 hours. Will need to increase long acting therapy to help with this. Hopeful he will not need trach but may need this. 2. CV-severe systolic heart failure. Cards following. They have added medications to the regimen. No invasive measures per them. Still needs better afterload reduction as he decompensated quickly off of positive pressure. Trial of dobutamine. Per cards, this diagnosis alone is not a candidate for hospice therapy but his overall picture appears to be that way. 3. Heme-Anemia. Etiology unknown. Could be from chronic disease. HIT negative. stable 4. Renal- Function is normal. Dietary to increase free water. Needs more increases 5. Endo-restarted feeds via NG/Dobb laquita tube, dietary to increase free water. 6. 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 Abx therapy stopped. 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 ID follows. 7. Onc-per IR, cannot biopsy while on vent 8. OVerall prognosis is poor but in a dilemma as patient has not official diagnosis of malignancy as there is no tissue, but he would not be a candidate for any other therapy given his current clinical state, especially with significant heart failure. Will attempt to have a family discussion with everyone at the bedside to include the patient as he is awake. 03/12/2020 Called manager terminal significant other, and mother and spoke to significant others sister over the phone at their request. Explained that patient cannot maintain his current respiratory status without support. They understand. I have also suggest a family meeting to discuss residential care and what the potential next steps could be. Tough without a diagnosis but with his heart failure alone, seems like he would be a candidate for hospice but will ask Cardiology their opinion on this. Will arrange a time with CM so that we can speak with family over the phone, hopefully early in the week. Overall prognosis is very very poor. 03/10/2020 Long discussion with mother (akil Floyd) and long time significant other (Ms. Zach Roe) via 3 [address] phone call. Good info from the significant other. Isael did not do biopsy as they wanted to treat the TB first to see if the lytic lesions were related to this. This is why patient was discharged to home without biopsy. Patient was scheduled for follow up CT on Friday but was admitted to [facility] on the prior and has been here ever since. I explained to them that the patient, even if this is cancer, may not be a candidate for much if any therapy given his other comorbid diseases. The family became tearful on the phone but expressed understanding. They wish to see him and I will attempt to work this out with them post extubation tomorrow or Friday. He will be NPO after midnight on Friday and Heparin drip should be stopped at midnight in preparation for biopsy on Friday. Overall prognosis is guarded to Poor. CCT 31 minutes. Subjective Date of service: 03/15/20 Principal diagnosis: Acute respiratory failure Interval history: No acute events. Family still debating on how they want to proceed with hospice as told to me by the nurse. Objective Vital Signs - 12hr 03/15/20 03/15/20 03/15/20 01:00 01:30 02:00 Temperature Pulse Rate 79 84 103 H Pulse Rate [ From Monitor] Respiratory 26 H 26 H 29 H Rate Blood Pressure 110/73 115/75 130/88 O2 Sat by Pulse 98 98 98 Oximetry 03/15/20 03/15/20 03/15/20 02:30 03:00 03:30 Temperature Pulse Rate 70 70 77 Pulse Rate [ From Monitor] Respiratory 25 H 26 H 26 H Rate Blood Pressure 106/68 106/71 110/70 O2 Sat by Pulse 98 98 98 Oximetry 03/15/20 03/15/20 03/15/20 04:00 04:25 04:29 Temperature 97.9 F 97.9 F Pulse Rate 73 67 Pulse Rate [ 71 From Monitor] Respiratory 17 Rate Blood Pressure 113/73 110/74 O2 Sat by Pulse 98 99 Oximetry 03/15/20 03/15/20 03/15/20 04:30 05:00 05:30 Temperature Pulse Rate 69 75 78 Pulse Rate [ From Monitor] Respiratory 26 H 26 H 25 H Rate Blood Pressure 110/74 116/74 114/78 O2 Sat by Pulse 99 94 93 Oximetry 03/15/20 03/15/20 03/15/20 06:00 06:30 07:00 Temperature Pulse Rate 69 74 90 Pulse Rate [ From Monitor] Respiratory 26 H 26 H 18 Rate Blood Pressure 116/74 107/73 108/74 O2 Sat by Pulse 96 95 97 Oximetry 03/15/20 03/15/20 03/15/20 07:30 08:00 08:19 Temperature 97.4 F L Pulse Rate 96 H 98 H 71 Pulse Rate [ From Monitor] Respiratory 19 23 Rate Blood Pressure 131/86 127/83 119/78 O2 Sat by Pulse 98 93 100 Oximetry 03/15/20 03/15/20 03/15/20 08:30 09:00 09:31 Temperature Pulse Rate 71 76 87 Pulse Rate [ From Monitor] Respiratory 26 H 26 H 26 H Rate Blood Pressure 113/73 115/80 119/74 O2 Sat by Pulse 95 91 89 Oximetry 03/15/20 03/15/20 03/15/20 10:00 10:31 11:00 Temperature Pulse Rate 65 120 H 76 Pulse Rate [ From Monitor] Respiratory 25 H 22 27 H Rate Blood Pressure 130/85 120/96 111/78 O2 Sat by Pulse 100 93 95 Oximetry 03/15/20 03/15/20 11:30 12:00 Temperature 97.5 F L Pulse Rate 74 69 Pulse Rate [ From Monitor] Respiratory 26 H 27 H Rate Blood Pressure 96/65 109/79 O2 Sat by Pulse 94 98 Oximetry Constitutional: agitated, appears uncomfortable, other (on vent, critically ill) Eyes: icteric, injected ENT: other (orally intubated with poor dentition) Neck: supple, no JVD Effort: mildly labored, other (Tachypneic) Ascultation: Right: rhonchi (upper lobe), Bilateral: rales Percussion: Bilateral: not dull Cardiovascular: other (sinus tach) Gastrointestinal: normoactive bowel sounds, soft Extremities: other (per nursing report, decubitus ulcer) Neurologic: unable to assess CBC and BMP: 03/15/20 00:46 03/15/20 00:46 ABG, PT/INR, D-dimer: ABG ABG pH 7.486 (7.320-7.450) H 03/14/20 05:13 POC ABG pCO2 50.2 mmHg (32.0-48.0) H 03/14/20 05:13 ABG pCO2 45.2 mm Hg 03/10/20 03:50 POC ABG pO2 87.9 mmHg (83-108) 03/14/20 05:13 ABG pO2 72.5 mm Hg (80.0-90.0) L 03/10/20 03:50 POC ABG HCO3 37.1 03/14/20 05:13 ABG O2 Saturation 96.8 % (95.0-99.0) 03/10/20 03:50 PT/INR, D-dimer PT 15.1 Sec. (12.2-14.9) H 03/10/20 23:40 INR 1.17 (0.87-1.13) H 03/10/20 23:40 D-Dimer 3251.26 ng/mlDDU (0-234) H 02/25/20 03:37 Abnormal lab findings: Abnormal Labs 02/25/20 02/25/20 02/25/20 00:46 00:46 00:46 WBC RBC 3.22 L Hgb 8.9 L Hct 28.5 L MCH MCHC 31 L RDW 24.8 H Plt Count 452 H Lymph % (Auto) 9.1 L Lymph # (Auto) 0.9 L Seg Neutrophils % 86.6 H Seg Neuts % (Manual) Lymphocytes % (Manual) Monocytes % (Manual) Nucleated RBC % Seg Neutrophils # 8.9 H Seg Neutrophils # Man Lymphocytes # (Manual) Monocytes # (Manual) PT INR D-Dimer Heparin Anti-Xa Level ABG pH POC ABG pCO2 POC ABG pO2 ABG pO2 ABG HCO3 ABG O2 Saturation ABG Base Excess ABG Hemoglobin ABG Oxyhemoglobin ABG Sodium ABG Potassium ABG Chloride ABG Glucose Oxyhemoglobin Carboxyhemoglobin Sodium Potassium Chloride Carbon Dioxide BUN Creatinine Glucose POC Glucose Lactic Acid 2.10 H* Calcium 8.3 L Ferritin AST ALT < 5 L Alkaline Phosphatase 187 H Lactate Dehydrogenase Total Creatine Kinase 28 L CK-MB (CK-2) Rel Index 8.5 H Troponin T 0.190 H* C-Reactive Protein Total Protein Albumin 2.5 L LDL Cholesterol Direct 45 L HDL Cholesterol 32 L Arterial Blood Glucose Arterial Blood Ionized Calcium Urine WBC (Auto) Vancomycin Trough Crossmatch 02/25/20 02/25/20 02/25/20 02:32 03:37 03:37 WBC RBC Hgb Hct MCH MCHC RDW Plt Count Lymph % (Auto) Lymph # (Auto) Seg Neutrophils % Seg Neuts % (Manual) Lymphocytes % (Manual) Monocytes % (Manual) Nucleated RBC % Seg Neutrophils # Seg Neutrophils # Man Lymphocytes # (Manual) Monocytes # (Manual) PT INR D-Dimer 3251.26 H Heparin Anti-Xa Level ABG pH POC ABG pCO2 POC ABG pO2 ABG pO2 ABG HCO3 ABG O2 Saturation ABG Base Excess ABG Hemoglobin ABG Oxyhemoglobin ABG Sodium ABG Potassium ABG Chloride ABG Glucose Oxyhemoglobin Carboxyhemoglobin Sodium Potassium Chloride Carbon Dioxide BUN Creatinine Glucose 144 H POC Glucose Lactic Acid Calcium Ferritin AST ALT Alkaline Phosphatase Lactate Dehydrogenase 234 H Total Creatine Kinase CK-MB (CK-2) Rel Index Troponin T C-Reactive Protein 8.80 H Total Protein Albumin LDL Cholesterol Direct HDL Cholesterol Arterial Blood Glucose Arterial Blood Ionized Calcium Urine WBC (Auto) 68.0 H Vancomycin Trough Crossmatch 02/25/20 02/25/20 02/25/20 03:37 05:36 06:33 WBC RBC Hgb Hct MCH MCHC RDW Plt Count Lymph % (Auto) Lymph # (Auto) Seg Neutrophils % Seg Neuts % (Manual) Lymphocytes % (Manual) Monocytes % (Manual) Nucleated RBC % Seg Neutrophils # Seg Neutrophils # Man Lymphocytes # (Manual) Monocytes # (Manual) PT INR D-Dimer Heparin Anti-Xa Level ABG pH POC ABG pCO2 POC ABG pO2 ABG pO2 ABG HCO3 ABG O2 Saturation ABG Base Excess ABG Hemoglobin ABG Oxyhemoglobin ABG Sodium ABG Potassium ABG Chloride ABG Glucose Oxyhemoglobin Carboxyhemoglobin Sodium Potassium Chloride Carbon Dioxide BUN Creatinine Glucose POC Glucose 234 H Lactic Acid Calcium Ferritin 450.5 H AST ALT Alkaline Phosphatase Lactate Dehydrogenase Total Creatine Kinase CK-MB (CK-2) Rel Index Troponin T 0.187 H* C-Reactive Protein Total Protein Albumin LDL Cholesterol Direct HDL Cholesterol Arterial Blood Glucose Arterial Blood Ionized Calcium Urine WBC (Auto) Vancomycin Trough Crossmatch 02/25/20 02/25/20 02/25/20 09:30 13:10 16:27 WBC RBC Hgb Hct MCH MCHC RDW Plt Count Lymph % (Auto) Lymph # (Auto) Seg Neutrophils % Seg Neuts % (Manual) Lymphocytes % (Manual) Monocytes % (Manual) Nucleated RBC % Seg Neutrophils # Seg Neutrophils # Man Lymphocytes # (Manual) Monocytes # (Manual) PT INR D-Dimer Heparin Anti-Xa Level ABG pH 7.149 L* 7.256 L POC ABG pCO2 POC ABG pO2 ABG pO2 165.3 H 64.5 L ABG HCO3 17.2 L 17.4 L ABG O2 Saturation 85.2 L ABG Base Excess -11.0 L -9.0 L ABG Hemoglobin 7.5 L 8.4 L ABG Oxyhemoglobin ABG Sodium ABG Potassium ABG Chloride ABG Glucose Oxyhemoglobin 83.4 L Carboxyhemoglobin Sodium Potassium Chloride Carbon Dioxide BUN Creatinine Glucose POC Glucose Lactic Acid 3.20 H* Calcium Ferritin AST ALT Alkaline Phosphatase Lactate Dehydrogenase Total Creatine Kinase CK-MB (CK-2) Rel Index Troponin T C-Reactive Protein Total Protein Albumin LDL Cholesterol Direct HDL Cholesterol Arterial Blood Glucose Arterial Blood Ionized Calcium Urine WBC (Auto) Vancomycin Trough Crossmatch 02/26/20 02/26/20 02/26/20 04:00 04:00 04:00 WBC 20.4 H RBC 2.61 L Hgb 7.0 L Hct 24.5 L MCH 27 L MCHC 29 L RDW 25.1 H Plt Count Lymph % (Auto) Lymph # (Auto) Seg Neutrophils % Seg Neuts % (Manual) 92.0 H Lymphocytes % (Manual) 4.0 L Monocytes % (Manual) Nucleated RBC % Seg Neutrophils # Seg Neutrophils # Man 18.8 H Lymphocytes # (Manual) 0.8 L Monocytes # (Manual) PT 17.9 H INR 1.46 H D-Dimer Heparin Anti-Xa Level ABG pH POC ABG pCO2 POC ABG pO2 ABG pO2 ABG HCO3 ABG O2 Saturation ABG Base Excess ABG Hemoglobin ABG Oxyhemoglobin ABG Sodium ABG Potassium ABG Chloride ABG Glucose Oxyhemoglobin Carboxyhemoglobin Sodium Potassium Chloride 111.1 H Carbon Dioxide 14 L D BUN 29 H Creatinine Glucose 57 L POC Glucose Lactic Acid Calcium 7.8 L Ferritin AST ALT Alkaline Phosphatase Lactate Dehydrogenase Total Creatine Kinase CK-MB (CK-2) Rel Index Troponin T C-Reactive Protein Total Protein Albumin LDL Cholesterol Direct HDL Cholesterol Arterial Blood Glucose Arterial Blood Ionized Calcium Urine WBC (Auto) Vancomycin Trough Crossmatch 02/26/20 02/26/20 02/26/20 04:20 07:13 09:20 WBC RBC Hgb Hct MCH MCHC RDW Plt Count Lymph % (Auto) Lymph # (Auto) Seg Neutrophils % Seg Neuts % (Manual) Lymphocytes % (Manual) Monocytes % (Manual) Nucleated RBC % Seg Neutrophils # Seg Neutrophils # Man Lymphocytes # (Manual) Monocytes # (Manual) PT INR D-Dimer Heparin Anti-Xa Level ABG pH 7.269 L POC ABG pCO2 POC ABG pO2 ABG pO2 236.1 H ABG HCO3 13.9 L ABG O2 Saturation 99.3 H ABG Base Excess -11.9 L ABG Hemoglobin 7.2 L ABG Oxyhemoglobin ABG Sodium ABG Potassium ABG Chloride ABG Glucose Oxyhemoglobin Carboxyhemoglobin Sodium Potassium Chloride Carbon Dioxide BUN Creatinine Glucose POC Glucose 52 L Lactic Acid Calcium Ferritin AST ALT Alkaline Phosphatase Lactate Dehydrogenase Total Creatine Kinase CK-MB (CK-2) Rel Index Troponin T C-Reactive Protein Total Protein Albumin LDL Cholesterol Direct HDL Cholesterol Arterial Blood Glucose Arterial Blood Ionized Calcium Urine WBC (Auto) Vancomycin Trough Crossmatch See Detail 02/27/20 02/27/20 02/27/20 04:59 05:40 07:30 WBC 16.6 H RBC 3.07 L Hgb 8.4 L Hct 27.4 L MCH MCHC 31 L RDW 24.4 H Plt Count Lymph % (Auto) Lymph # (Auto) Seg Neutrophils % Seg Neuts % (Manual) Lymphocytes % (Manual) Monocytes % (Manual) Nucleated RBC % Seg Neutrophils # Seg Neutrophils # Man Lymphocytes # (Manual) Monocytes # (Manual) PT INR D-Dimer Heparin Anti-Xa Level ABG pH 7.306 L POC ABG pCO2 POC ABG pO2 ABG pO2 149.6 H ABG HCO3 17.0 L ABG O2 Saturation ABG Base Excess -8.5 L ABG Hemoglobin 7.8 L ABG Oxyhemoglobin ABG Sodium ABG Potassium ABG Chloride ABG Glucose Oxyhemoglobin Carboxyhemoglobin Sodium Potassium Chloride Carbon Dioxide BUN Creatinine Glucose POC Glucose 64 L Lactic Acid Calcium Ferritin AST ALT Alkaline Phosphatase Lactate Dehydrogenase Total Creatine Kinase CK-MB (CK-2) Rel Index Troponin T C-Reactive Protein Total Protein Albumin LDL Cholesterol Direct HDL Cholesterol Arterial Blood Glucose Arterial Blood Ionized Calcium Urine WBC (Auto) Vancomycin Trough Crossmatch 02/27/20 02/27/20 02/27/20 07:30 12:07 18:07 WBC RBC Hgb Hct MCH MCHC RDW Plt Count Lymph % (Auto) Lymph # (Auto) Seg Neutrophils % Seg Neuts % (Manual) Lymphocytes % (Manual) Monocytes % (Manual) Nucleated RBC % Seg Neutrophils # Seg Neutrophils # Man Lymphocytes # (Manual) Monocytes # (Manual) PT INR D-Dimer Heparin Anti-Xa Level ABG pH POC ABG pCO2 POC ABG pO2 ABG pO2 ABG HCO3 ABG O2 Saturation ABG Base Excess ABG Hemoglobin ABG Oxyhemoglobin ABG Sodium ABG Potassium ABG Chloride ABG Glucose Oxyhemoglobin Carboxyhemoglobin Sodium 146 H Potassium Chloride 115.0 H Carbon Dioxide 17 L BUN 29 H Creatinine Glucose 72 L POC Glucose 116 H 63 L Lactic Acid Calcium 7.9 L Ferritin AST 118 H ALT Alkaline Phosphatase 273 H Lactate Dehydrogenase Total Creatine Kinase CK-MB (CK-2) Rel Index Troponin T C-Reactive Protein Total Protein 5.3 L D Albumin 2.0 L LDL Cholesterol Direct HDL Cholesterol Arterial Blood Glucose Arterial Blood Ionized Calcium Urine WBC (Auto) Vancomycin Trough Crossmatch 02/27/20 02/28/20 02/28/20 23:41 04:30 05:30 WBC 12.5 H RBC 2.99 L Hgb 8.0 L Hct 26.6 L MCH 27 L MCHC 30 L RDW 24.8 H Plt Count Lymph % (Auto) 7.5 L Lymph # (Auto) 0.9 L Seg Neutrophils % 86.9 H Seg Neuts % (Manual) Lymphocytes % (Manual) Monocytes % (Manual) Nucleated RBC % Seg Neutrophils # 10.8 H Seg Neutrophils # Man Lymphocytes # (Manual) Monocytes # (Manual) PT INR D-Dimer Heparin Anti-Xa Level ABG pH 7.240 L POC ABG pCO2 POC ABG pO2 ABG pO2 ABG HCO3 ABG O2 Saturation ABG Base Excess ABG Hemoglobin 9.0 L ABG Oxyhemoglobin ABG Sodium ABG Potassium ABG Chloride ABG Glucose Oxyhemoglobin Carboxyhemoglobin Sodium Potassium Chloride Carbon Dioxide BUN Creatinine Glucose POC Glucose 131 H Lactic Acid Calcium Ferritin AST ALT Alkaline Phosphatase Lactate Dehydrogenase Total Creatine Kinase CK-MB (CK-2) Rel Index Troponin T C-Reactive Protein Total Protein Albumin LDL Cholesterol Direct HDL Cholesterol Arterial Blood Glucose Arterial Blood Ionized Calcium Urine WBC (Auto) Vancomycin Trough Crossmatch 02/28/20 02/28/20 02/28/20 06:00 09:00 17:25 WBC RBC Hgb Hct MCH MCHC RDW Plt Count Lymph % (Auto) Lymph # (Auto) Seg Neutrophils % Seg Neuts % (Manual) Lymphocytes % (Manual) Monocytes % (Manual) Nucleated RBC % Seg Neutrophils # Seg Neutrophils # Man Lymphocytes # (Manual) Monocytes # (Manual) PT INR D-Dimer Heparin Anti-Xa Level ABG pH POC ABG pCO2 POC ABG pO2 ABG pO2 ABG HCO3 ABG O2 Saturation ABG Base Excess ABG Hemoglobin ABG Oxyhemoglobin ABG Sodium ABG Potassium ABG Chloride ABG Glucose Oxyhemoglobin Carboxyhemoglobin Sodium Potassium Chloride Carbon Dioxide BUN Creatinine Glucose POC Glucose 121 H 61 L Lactic Acid Calcium Ferritin AST ALT Alkaline Phosphatase Lactate Dehydrogenase Total Creatine Kinase CK-MB (CK-2) Rel Index Troponin T C-Reactive Protein Total Protein Albumin LDL Cholesterol Direct HDL Cholesterol Arterial Blood Glucose Arterial Blood Ionized Calcium Urine WBC (Auto) Vancomycin Trough 29.0 H Crossmatch 02/28/20 02/29/20 02/29/20 Unknown 04:32 05:17 WBC RBC Hgb Hct MCH MCHC RDW Plt Count Lymph % (Auto) Lymph # (Auto) Seg Neutrophils % Seg Neuts % (Manual) Lymphocytes % (Manual) Monocytes % (Manual) Nucleated RBC % Seg Neutrophils # Seg Neutrophils # Man Lymphocytes # (Manual) Monocytes # (Manual) PT INR D-Dimer Heparin Anti-Xa Level ABG pH POC ABG pCO2 22.5 L POC ABG pO2 119.7 H ABG pO2 ABG HCO3 ABG O2 Saturation ABG Base Excess ABG Hemoglobin 10.5 L ABG Oxyhemoglobin ABG Sodium ABG Potassium ABG Chloride ABG Glucose Oxyhemoglobin Carboxyhemoglobin 0.3 L Sodium Potassium Chloride 114.7 H Carbon Dioxide 14 L BUN 30 H Creatinine Glucose POC Glucose Lactic Acid Calcium 7.8 L Ferritin AST 193 H ALT Alkaline Phosphatase 354 H Lactate Dehydrogenase Total Creatine Kinase CK-MB (CK-2) Rel Index Troponin T C-Reactive Protein Total Protein 5.6 L Albumin 2.0 L LDL Cholesterol Direct HDL Cholesterol Arterial Blood Glucose Arterial Blood Ionized Calcium Urine WBC (Auto) Vancomycin Trough Crossmatch 09/02/29/20 02/29/20 05:29 11:16 11:16 WBC 15.1 H RBC Hgb 10.1 L Hct 32.8 L D MCH 27 L MCHC 31 L RDW 25.2 H Plt Count Lymph % (Auto) Lymph # (Auto) Seg Neutrophils % Seg Neuts % (Manual) 98.0 H Lymphocytes % (Manual) 1.0 L Monocytes % (Manual) Nucleated RBC % 5.0 H Seg Neutrophils # Seg Neutrophils # Man 14.8 H Lymphocytes # (Manual) 0.2 L Monocytes # (Manual) PT INR D-Dimer Heparin Anti-Xa Level ABG pH POC ABG pCO2 POC ABG pO2 ABG pO2 ABG HCO3 ABG O2 Saturation ABG Base Excess ABG Hemoglobin ABG Oxyhemoglobin ABG Sodium ABG Potassium ABG Chloride ABG Glucose Oxyhemoglobin Carboxyhemoglobin Sodium Potassium 3.5 L Chloride 111.7 H Carbon Dioxide 14 L BUN 33 H Creatinine Glucose 180 H POC Glucose 125 H Lactic Acid Calcium 7.8 L Ferritin AST ALT Alkaline Phosphatase Lactate Dehydrogenase Total Creatine Kinase CK-MB (CK-2) Rel Index Troponin T C-Reactive Protein Total Protein Albumin LDL Cholesterol Direct HDL Cholesterol Arterial Blood Glucose Arterial Blood Ionized Calcium Urine WBC (Auto) Vancomycin Trough Crossmatch 02/29/20 02/29/20 02/29/20 12:55 17:53 23:38 WBC RBC Hgb Hct MCH MCHC RDW Plt Count Lymph % (Auto) Lymph # (Auto) Seg Neutrophils % Seg Neuts % (Manual) Lymphocytes % (Manual) Monocytes % (Manual) Nucleated RBC % Seg Neutrophils # Seg Neutrophils # Man Lymphocytes # (Manual) Monocytes # (Manual) PT INR D-Dimer Heparin Anti-Xa Level ABG pH POC ABG pCO2 POC ABG pO2 ABG pO2 ABG HCO3 ABG O2 Saturation ABG Base Excess ABG Hemoglobin ABG Oxyhemoglobin ABG Sodium ABG Potassium ABG Chloride ABG Glucose Oxyhemoglobin Carboxyhemoglobin Sodium Potassium Chloride Carbon Dioxide BUN Creatinine Glucose POC Glucose 134 H 145 H 127 H Lactic Acid Calcium Ferritin AST ALT Alkaline Phosphatase Lactate Dehydrogenase Total Creatine Kinase CK-MB (CK-2) Rel Index Troponin T C-Reactive Protein Total Protein Albumin LDL Cholesterol Direct HDL Cholesterol Arterial Blood Glucose Arterial Blood Ionized Calcium Urine WBC (Auto) Vancomycin Trough Crossmatch 03/01/20 03/01/20 03/01/20 03:46 05:44 07:55 WBC 14.0 H RBC Hgb 10.0 L Hct 32.3 L MCH 27 L MCHC 31 L RDW 25.4 H Plt Count 99 L Lymph % (Auto) Lymph # (Auto) Seg Neutrophils % Seg Neuts % (Manual) Lymphocytes % (Manual) Monocytes % (Manual) Nucleated RBC % Seg Neutrophils # Seg Neutrophils # Man Lymphocytes # (Manual) Monocytes # (Manual) PT INR D-Dimer Heparin Anti-Xa Level ABG pH 7.288 L POC ABG pCO2 POC ABG pO2 ABG pO2 ABG HCO3 11.7 L ABG O2 Saturation ABG Base Excess -13.3 L ABG Hemoglobin ABG Oxyhemoglobin ABG Sodium ABG Potassium ABG Chloride ABG Glucose Oxyhemoglobin Carboxyhemoglobin Sodium Potassium Chloride Carbon Dioxide BUN Creatinine Glucose POC Glucose 177 H Lactic Acid Calcium Ferritin AST ALT Alkaline Phosphatase Lactate Dehydrogenase Total Creatine Kinase CK-MB (CK-2) Rel Index Troponin T C-Reactive Protein Total Protein Albumin LDL Cholesterol Direct HDL Cholesterol Arterial Blood Glucose Arterial Blood Ionized Calcium Urine WBC (Auto) Vancomycin Trough Crossmatch 03/01/20 03/01/20 03/01/20 07:55 12:14 18:07 WBC RBC Hgb Hct MCH MCHC RDW Plt Count Lymph % (Auto) Lymph # (Auto) Seg Neutrophils % Seg Neuts % (Manual) Lymphocytes % (Manual) Monocytes % (Manual) Nucleated RBC % Seg Neutrophils # Seg Neutrophils # Man Lymphocytes # (Manual) Monocytes # (Manual) PT INR D-Dimer Heparin Anti-Xa Level ABG pH POC ABG pCO2 POC ABG pO2 ABG pO2 ABG HCO3 ABG O2 Saturation ABG Base Excess ABG Hemoglobin ABG Oxyhemoglobin ABG Sodium ABG Potassium ABG Chloride ABG Glucose Oxyhemoglobin Carboxyhemoglobin Sodium Potassium Chloride 111.5 H Carbon Dioxide 16 L BUN 36 H Creatinine Glucose 157 H POC Glucose 163 H 109 H Lactic Acid Calcium 7.9 L Ferritin AST ALT Alkaline Phosphatase Lactate Dehydrogenase Total Creatine Kinase CK-MB (CK-2) Rel Index Troponin T C-Reactive Protein Total Protein Albumin LDL Cholesterol Direct HDL Cholesterol Arterial Blood Glucose Arterial Blood Ionized Calcium Urine WBC (Auto) Vancomycin Trough Crossmatch 03/01/20 03/02/20 03/02/20 23:55 05:42 12:02 WBC RBC Hgb Hct MCH MCHC RDW Plt Count Lymph % (Auto) Lymph # (Auto) Seg Neutrophils % Seg Neuts % (Manual) Lymphocytes % (Manual) Monocytes % (Manual) Nucleated RBC % Seg Neutrophils # Seg Neutrophils # Man Lymphocytes # (Manual) Monocytes # (Manual) PT INR D-Dimer Heparin Anti-Xa Level ABG pH POC ABG pCO2 POC ABG pO2 ABG pO2 ABG HCO3 ABG O2 Saturation ABG Base Excess ABG Hemoglobin ABG Oxyhemoglobin ABG Sodium ABG Potassium ABG Chloride ABG Glucose Oxyhemoglobin Carboxyhemoglobin Sodium Potassium Chloride Carbon Dioxide BUN Creatinine Glucose POC Glucose 132 H 146 H 147 H Lactic Acid Calcium Ferritin AST ALT Alkaline Phosphatase Lactate Dehydrogenase Total Creatine Kinase CK-MB (CK-2) Rel Index Troponin T C-Reactive Protein Total Protein Albumin LDL Cholesterol Direct HDL Cholesterol Arterial Blood Glucose Arterial Blood Ionized Calcium Urine WBC (Auto) Vancomycin Trough Crossmatch 03/02/20 03/03/20 03/03/20 17:59 00:28 04:52 WBC 13.3 H RBC Hgb 9.9 L Hct 32.2 L MCH 27 L MCHC 31 L RDW 25.8 H Plt Count 67 L Lymph % (Auto) Lymph # (Auto) Seg Neutrophils % Seg Neuts % (Manual) Lymphocytes % (Manual) Monocytes % (Manual) Nucleated RBC % Seg Neutrophils # Seg Neutrophils # Man Lymphocytes # (Manual) Monocytes # (Manual) PT INR D-Dimer Heparin Anti-Xa Level ABG pH POC ABG pCO2 POC ABG pO2 ABG pO2 ABG HCO3 ABG O2 Saturation ABG Base Excess ABG Hemoglobin ABG Oxyhemoglobin ABG Sodium ABG Potassium ABG Chloride ABG Glucose Oxyhemoglobin Carboxyhemoglobin Sodium Potassium Chloride Carbon Dioxide BUN Creatinine Glucose POC Glucose 113 H 114 H Lactic Acid Calcium Ferritin AST ALT Alkaline Phosphatase Lactate Dehydrogenase Total Creatine Kinase CK-MB (CK-2) Rel Index Troponin T C-Reactive Protein Total Protein Albumin LDL Cholesterol Direct HDL Cholesterol Arterial Blood Glucose Arterial Blood Ionized Calcium Urine WBC (Auto) Vancomycin Trough Crossmatch 03/03/20 03/03/20 03/04/20 04:52 18:08 00:27 WBC RBC Hgb Hct MCH MCHC RDW Plt Count Lymph % (Auto) Lymph # (Auto) Seg Neutrophils % Seg Neuts % (Manual) Lymphocytes % (Manual) Monocytes % (Manual) Nucleated RBC % Seg Neutrophils # Seg Neutrophils # Man Lymphocytes # (Manual) Monocytes # (Manual) PT INR D-Dimer Heparin Anti-Xa Level ABG pH POC ABG pCO2 POC ABG pO2 ABG pO2 ABG HCO3 ABG O2 Saturation ABG Base Excess ABG Hemoglobin ABG Oxyhemoglobin ABG Sodium ABG Potassium ABG Chloride ABG Glucose Oxyhemoglobin Carboxyhemoglobin Sodium Potassium Chloride 112.7 H Carbon Dioxide 19 L BUN 35 H Creatinine Glucose POC Glucose 119 H 120 H Lactic Acid Calcium Ferritin AST ALT Alkaline Phosphatase Lactate Dehydrogenase Total Creatine Kinase CK-MB (CK-2) Rel Index Troponin T C-Reactive Protein Total Protein Albumin LDL Cholesterol Direct HDL Cholesterol Arterial Blood Glucose Arterial Blood Ionized Calcium Urine WBC (Auto) Vancomycin Trough Crossmatch 03/04/20 03/04/20 03/04/20 05:52 12:17 16:45 WBC 17.9 H RBC 3.57 L Hgb 9.6 L Hct 32.8 L MCH 27 L MCHC 29 L RDW 26.4 H Plt Count 136 L D Lymph % (Auto) Lymph # (Auto) Seg Neutrophils % Seg Neuts % (Manual) 91.0 H Lymphocytes % (Manual) 6.0 L Monocytes % (Manual) Nucleated RBC % 2.0 H Seg Neutrophils # Seg Neutrophils # Man 16.3 H Lymphocytes # (Manual) 1.1 L Monocytes # (Manual) PT INR D-Dimer Heparin Anti-Xa Level ABG pH POC ABG pCO2 POC ABG pO2 ABG pO2 ABG HCO3 ABG O2 Saturation ABG Base Excess ABG Hemoglobin ABG Oxyhemoglobin ABG Sodium ABG Potassium ABG Chloride ABG Glucose Oxyhemoglobin Carboxyhemoglobin Sodium Potassium Chloride Carbon Dioxide BUN Creatinine Glucose POC Glucose 166 H 187 H Lactic Acid Calcium Ferritin AST ALT Alkaline Phosphatase Lactate Dehydrogenase Total Creatine Kinase CK-MB (CK-2) Rel Index Troponin T C-Reactive Protein Total Protein Albumin LDL Cholesterol Direct HDL Cholesterol Arterial Blood Glucose Arterial Blood Ionized Calcium Urine WBC (Auto) Vancomycin Trough Crossmatch 03/04/20 03/04/20 03/04/20 16:45 18:29 22:44 WBC RBC Hgb Hct MCH MCHC RDW Plt Count Lymph % (Auto) Lymph # (Auto) Seg Neutrophils % Seg Neuts % (Manual) Lymphocytes % (Manual) Monocytes % (Manual) Nucleated RBC % Seg Neutrophils # Seg Neutrophils # Man Lymphocytes # (Manual) Monocytes # (Manual) PT INR D-Dimer Heparin Anti-Xa Level ABG pH POC ABG pCO2 POC ABG pO2 ABG pO2 ABG HCO3 ABG O2 Saturation ABG Base Excess ABG Hemoglobin ABG Oxyhemoglobin ABG Sodium ABG Potassium ABG Chloride ABG Glucose Oxyhemoglobin Carboxyhemoglobin Sodium 146 H Potassium Chloride 115.6 H Carbon Dioxide 21 L BUN 39 H Creatinine Glucose 137 H POC Glucose 147 H 188 H Lactic Acid Calcium Ferritin AST ALT Alkaline Phosphatase 219 H Lactate Dehydrogenase Total Creatine Kinase CK-MB (CK-2) Rel Index Troponin T C-Reactive Protein Total Protein 5.7 L Albumin 1.9 L LDL Cholesterol Direct HDL Cholesterol Arterial Blood Glucose Arterial Blood Ionized Calcium Urine WBC (Auto) Vancomycin Trough Crossmatch 03/05/20 03/05/20 03/05/20 01:05 04:20 04:56 WBC 20.9 H RBC 3.41 L Hgb 9.3 L Hct 30.5 L MCH 27 L MCHC 30 L RDW 26.0 H Plt Count 130 L Lymph % (Auto) Lymph # (Auto) Seg Neutrophils % Seg Neuts % (Manual) Lymphocytes % (Manual) Monocytes % (Manual) Nucleated RBC % Seg Neutrophils # Seg Neutrophils # Man Lymphocytes # (Manual) Monocytes # (Manual) PT INR D-Dimer Heparin Anti-Xa Level ABG pH 7.225 L 7.280 L POC ABG pCO2 POC ABG pO2 ABG pO2 178.8 H ABG HCO3 19.8 L ABG O2 Saturation ABG Base Excess -7.3 L -6.3 L ABG Hemoglobin 10.0 L 5.0 L ABG Oxyhemoglobin ABG Sodium ABG Potassium ABG Chloride ABG Glucose Oxyhemoglobin Carboxyhemoglobin Sodium Potassium Chloride Carbon Dioxide BUN Creatinine Glucose POC Glucose Lactic Acid Calcium Ferritin AST ALT Alkaline Phosphatase Lactate Dehydrogenase Total Creatine Kinase CK-MB (CK-2) Rel Index Troponin T C-Reactive Protein Total Protein Albumin LDL Cholesterol Direct HDL Cholesterol Arterial Blood Glucose Arterial Blood Ionized Calcium Urine WBC (Auto) Vancomycin Trough Crossmatch 03/05/20 03/05/20 03/05/20 04:56 05:29 11:27 WBC RBC Hgb Hct MCH MCHC RDW Plt Count Lymph % (Auto) Lymph # (Auto) Seg Neutrophils % Seg Neuts % (Manual) Lymphocytes % (Manual) Monocytes % (Manual) Nucleated RBC % Seg Neutrophils # Seg Neutrophils # Man Lymphocytes # (Manual) Monocytes # (Manual) PT INR D-Dimer Heparin Anti-Xa Level ABG pH POC ABG pCO2 POC ABG pO2 ABG pO2 ABG HCO3 ABG O2 Saturation ABG Base Excess ABG Hemoglobin ABG Oxyhemoglobin ABG Sodium ABG Potassium ABG Chloride ABG Glucose Oxyhemoglobin Carboxyhemoglobin Sodium 149 H Potassium Chloride 116.7 H Carbon Dioxide 19 L BUN 43 H Creatinine Glucose 156 H POC Glucose 169 H 159 H Lactic Acid Calcium Ferritin AST ALT Alkaline Phosphatase Lactate Dehydrogenase Total Creatine Kinase CK-MB (CK-2) Rel Index Troponin T C-Reactive Protein Total Protein Albumin LDL Cholesterol Direct HDL Cholesterol Arterial Blood Glucose Arterial Blood Ionized Calcium Urine WBC (Auto) Vancomycin Trough Crossmatch 03/05/20 03/05/20 03/06/20 17:56 23:57 04:00 WBC RBC Hgb Hct MCH MCHC RDW Plt Count Lymph % (Auto) Lymph # (Auto) Seg Neutrophils % Seg Neuts % (Manual) Lymphocytes % (Manual) Monocytes % (Manual) Nucleated RBC % Seg Neutrophils # Seg Neutrophils # Man Lymphocytes # (Manual) Monocytes # (Manual) PT INR D-Dimer Heparin Anti-Xa Level ABG pH POC ABG pCO2 POC ABG pO2 63.9 L ABG pO2 ABG HCO3 ABG O2 Saturation ABG Base Excess ABG Hemoglobin 9.2 L ABG Oxyhemoglobin 91.6 L ABG Sodium ABG Potassium 3.2 L ABG Chloride 117.0 H ABG Glucose 120 H Oxyhemoglobin Carboxyhemoglobin Sodium Potassium Chloride Carbon Dioxide BUN Creatinine Glucose POC Glucose 154 H 153 H Lactic Acid Calcium Ferritin AST ALT Alkaline Phosphatase Lactate Dehydrogenase Total Creatine Kinase CK-MB (CK-2) Rel Index Troponin T C-Reactive Protein Total Protein Albumin LDL Cholesterol Direct HDL Cholesterol Arterial Blood Glucose 120 H Arterial Blood Ionized Calcium Urine WBC (Auto) Vancomycin Trough Crossmatch 03/06/20 03/06/20 03/06/20 05:44 12:49 14:00 WBC 12.1 H RBC 3.08 L Hgb 8.4 L Hct 27.0 L MCH 27 L MCHC 31 L RDW 25.6 H Plt Count 83 L Lymph % (Auto) Lymph # (Auto) Seg Neutrophils % Seg Neuts % (Manual) 90.0 H Lymphocytes % (Manual) 3.0 L Monocytes % (Manual) Nucleated RBC % Seg Neutrophils # Seg Neutrophils # Man 10.9 H Lymphocytes # (Manual) 0.4 L Monocytes # (Manual) PT INR D-Dimer Heparin Anti-Xa Level ABG pH POC ABG pCO2 POC ABG pO2 ABG pO2 ABG HCO3 ABG O2 Saturation ABG Base Excess ABG Hemoglobin ABG Oxyhemoglobin ABG Sodium ABG Potassium ABG Chloride ABG Glucose Oxyhemoglobin Carboxyhemoglobin Sodium Potassium Chloride Carbon Dioxide BUN Creatinine Glucose POC Glucose 147 H 128 H Lactic Acid Calcium Ferritin AST ALT Alkaline Phosphatase Lactate Dehydrogenase Total Creatine Kinase CK-MB (CK-2) Rel Index Troponin T C-Reactive Protein Total Protein Albumin LDL Cholesterol Direct HDL Cholesterol Arterial Blood Glucose Arterial Blood Ionized Calcium Urine WBC (Auto) Vancomycin Trough Crossmatch 03/06/20 03/06/20 03/07/20 14:00 18:26 00:17 WBC RBC Hgb Hct MCH MCHC RDW Plt Count Lymph % (Auto) Lymph # (Auto) Seg Neutrophils % Seg Neuts % (Manual) Lymphocytes % (Manual) Monocytes % (Manual) Nucleated RBC % Seg Neutrophils # Seg Neutrophils # Man Lymphocytes # (Manual) Monocytes # (Manual) PT INR D-Dimer Heparin Anti-Xa Level ABG pH POC ABG pCO2 POC ABG pO2 ABG pO2 ABG HCO3 ABG O2 Saturation ABG Base Excess ABG Hemoglobin ABG Oxyhemoglobin ABG Sodium ABG Potassium ABG Chloride ABG Glucose Oxyhemoglobin Carboxyhemoglobin Sodium 147 H Potassium 3.0 L D Chloride 114.6 H Carbon Dioxide BUN 36 H Creatinine Glucose 133 H POC Glucose 124 H 134 H Lactic Acid Calcium 8.0 L Ferritin AST ALT Alkaline Phosphatase Lactate Dehydrogenase Total Creatine Kinase CK-MB (CK-2) Rel Index Troponin T C-Reactive Protein Total Protein Albumin LDL Cholesterol Direct HDL Cholesterol Arterial Blood Glucose Arterial Blood Ionized Calcium Urine WBC (Auto) Vancomycin Trough Crossmatch 03/07/20 03/07/20 03/07/20 05:13 05:13 05:23 WBC 12.5 H RBC 3.48 L Hgb 9.4 L Hct 30.7 L MCH 27 L MCHC 31 L RDW 26.1 H Plt Count 93 L Lymph % (Auto) Lymph # (Auto) Seg Neutrophils % Seg Neuts % (Manual) Lymphocytes % (Manual) Monocytes % (Manual) Nucleated RBC % Seg Neutrophils # Seg Neutrophils # Man Lymphocytes # (Manual) Monocytes # (Manual) PT INR D-Dimer Heparin Anti-Xa Level ABG pH POC ABG pCO2 POC ABG pO2 ABG pO2 79.9 L ABG HCO3 ABG O2 Saturation ABG Base Excess ABG Hemoglobin 8.1 L ABG Oxyhemoglobin ABG Sodium ABG Potassium ABG Chloride ABG Glucose Oxyhemoglobin 94.4 L Carboxyhemoglobin Sodium 151 H Potassium Chloride 115.5 H Carbon Dioxide BUN 35 H Creatinine Glucose 134 H POC Glucose Lactic Acid Calcium 8.3 L Ferritin AST ALT Alkaline Phosphatase Lactate Dehydrogenase Total Creatine Kinase CK-MB (CK-2) Rel Index Troponin T C-Reactive Protein Total Protein Albumin LDL Cholesterol Direct HDL Cholesterol Arterial Blood Glucose Arterial Blood Ionized Calcium Urine WBC (Auto) Vancomycin Trough Crossmatch 03/07/20 03/07/20 03/07/20 05:39 12:18 17:29 WBC RBC Hgb Hct MCH MCHC RDW Plt Count Lymph % (Auto) Lymph # (Auto) Seg Neutrophils % Seg Neuts % (Manual) Lymphocytes % (Manual) Monocytes % (Manual) Nucleated RBC % Seg Neutrophils # Seg Neutrophils # Man Lymphocytes # (Manual) Monocytes # (Manual) PT INR D-Dimer Heparin Anti-Xa Level ABG pH POC ABG pCO2 POC ABG pO2 ABG pO2 ABG HCO3 ABG O2 Saturation ABG Base Excess ABG Hemoglobin ABG Oxyhemoglobin ABG Sodium ABG Potassium ABG Chloride ABG Glucose Oxyhemoglobin Carboxyhemoglobin Sodium Potassium Chloride Carbon Dioxide BUN Creatinine Glucose POC Glucose 146 H 153 H 124 H Lactic Acid Calcium Ferritin AST ALT Alkaline Phosphatase Lactate Dehydrogenase Total Creatine Kinase CK-MB (CK-2) Rel Index Troponin T C-Reactive Protein Total Protein Albumin LDL Cholesterol Direct HDL Cholesterol Arterial Blood Glucose Arterial Blood Ionized Calcium Urine WBC (Auto) Vancomycin Trough Crossmatch 03/07/20 03/08/20 03/08/20 23:49 04:03 11:57 WBC RBC Hgb Hct MCH MCHC RDW Plt Count Lymph % (Auto) Lymph # (Auto) Seg Neutrophils % Seg Neuts % (Manual) Lymphocytes % (Manual) Monocytes % (Manual) Nucleated RBC % Seg Neutrophils # Seg Neutrophils # Man Lymphocytes # (Manual) Monocytes # (Manual) PT INR D-Dimer Heparin Anti-Xa Level ABG pH POC ABG pCO2 POC ABG pO2 44.9 L ABG pO2 ABG HCO3 ABG O2 Saturation ABG Base Excess ABG Hemoglobin 10.1 L ABG Oxyhemoglobin ABG Sodium 146.0 H ABG Potassium ABG Chloride 114.0 H ABG Glucose Oxyhemoglobin Carboxyhemoglobin Sodium Potassium Chloride Carbon Dioxide BUN Creatinine Glucose POC Glucose 139 H 135 H Lactic Acid Calcium Ferritin AST ALT Alkaline Phosphatase Lactate Dehydrogenase Total Creatine Kinase CK-MB (CK-2) Rel Index Troponin T C-Reactive Protein Total Protein Albumin LDL Cholesterol Direct HDL Cholesterol Arterial Blood Glucose Arterial Blood Ionized Calcium Urine WBC (Auto) Vancomycin Trough Crossmatch 03/08/20 03/08/20 03/09/20 17:50 23:50 00:11 WBC RBC 3.17 L Hgb 8.9 L Hct 27.6 L MCH MCHC RDW 26.9 H Plt Count 118 L Lymph % (Auto) Lymph # (Auto) Seg Neutrophils % Seg Neuts % (Manual) 86.0 H Lymphocytes % (Manual) 5.0 L Monocytes % (Manual) 9.0 H Nucleated RBC % Seg Neutrophils # Seg Neutrophils # Man 8.9 H Lymphocytes # (Manual) 0.5 L Monocytes # (Manual) 0.9 H PT INR D-Dimer Heparin Anti-Xa Level ABG pH POC ABG pCO2 POC ABG pO2 ABG pO2 ABG HCO3 ABG O2 Saturation ABG Base Excess ABG Hemoglobin ABG Oxyhemoglobin ABG Sodium ABG Potassium ABG Chloride ABG Glucose Oxyhemoglobin Carboxyhemoglobin Sodium Potassium Chloride Carbon Dioxide BUN Creatinine Glucose POC Glucose 120 H 106 H Lactic Acid Calcium Ferritin AST ALT Alkaline Phosphatase Lactate Dehydrogenase Total Creatine Kinase CK-MB (CK-2) Rel Index Troponin T C-Reactive Protein Total Protein Albumin LDL Cholesterol Direct HDL Cholesterol Arterial Blood Glucose Arterial Blood Ionized Calcium Urine WBC (Auto) Vancomycin Trough Crossmatch 03/09/20 03/09/20 03/09/20 00:11 04:17 11:54 WBC RBC Hgb Hct MCH MCHC RDW Plt Count Lymph % (Auto) Lymph # (Auto) Seg Neutrophils % Seg Neuts % (Manual) Lymphocytes % (Manual) Monocytes % (Manual) Nucleated RBC % Seg Neutrophils # Seg Neutrophils # Man Lymphocytes # (Manual) Monocytes # (Manual) PT INR D-Dimer Heparin Anti-Xa Level ABG pH 7.451 H POC ABG pCO2 POC ABG pO2 75.5 L ABG pO2 ABG HCO3 ABG O2 Saturation ABG Base Excess ABG Hemoglobin 9.3 L ABG Oxyhemoglobin ABG Sodium 147.0 H ABG Potassium ABG Chloride 114.0 H ABG Glucose Oxyhemoglobin Carboxyhemoglobin Sodium 151 H Potassium 3.4 L Chloride 111.6 H Carbon Dioxide BUN 34 H Creatinine Glucose POC Glucose 138 H Lactic Acid Calcium 8.3 L Ferritin AST ALT Alkaline Phosphatase 156 H Lactate Dehydrogenase Total Creatine Kinase CK-MB (CK-2) Rel Index Troponin T C-Reactive Protein Total Protein 5.7 L Albumin 1.8 L LDL Cholesterol Direct HDL Cholesterol Arterial Blood Glucose Arterial Blood Ionized Calcium Urine WBC (Auto) Vancomycin Trough Crossmatch 03/09/20 03/10/20 03/10/20 17:40 00:05 03:50 WBC RBC Hgb Hct MCH MCHC RDW Plt Count Lymph % (Auto) Lymph # (Auto) Seg Neutrophils % Seg Neuts % (Manual) Lymphocytes % (Manual) Monocytes % (Manual) Nucleated RBC % Seg Neutrophils # Seg Neutrophils # Man Lymphocytes # (Manual) Monocytes # (Manual) PT INR D-Dimer Heparin Anti-Xa Level ABG pH 7.461 H POC ABG pCO2 POC ABG pO2 ABG pO2 72.5 L ABG HCO3 31.5 H ABG O2 Saturation ABG Base Excess 7.0 H ABG Hemoglobin 7.2 L ABG Oxyhemoglobin ABG Sodium ABG Potassium ABG Chloride ABG Glucose Oxyhemoglobin 94.3 L Carboxyhemoglobin Sodium Potassium Chloride Carbon Dioxide BUN Creatinine Glucose POC Glucose 116 H 141 H Lactic Acid Calcium Ferritin AST ALT Alkaline Phosphatase Lactate Dehydrogenase Total Creatine Kinase CK-MB (CK-2) Rel Index Troponin T C-Reactive Protein Total Protein Albumin LDL Cholesterol Direct HDL Cholesterol Arterial Blood Glucose Arterial Blood Ionized Calcium Urine WBC (Auto) Vancomycin Trough Crossmatch 03/10/20 03/10/20 03/10/20 04:38 04:38 05:26 WBC RBC Hgb Hct MCH MCHC 30 L RDW 27.6 H Plt Count 113 L Lymph % (Auto) Lymph # (Auto) Seg Neutrophils % Seg Neuts % (Manual) Lymphocytes % (Manual) Monocytes % (Manual) Nucleated RBC % Seg Neutrophils # Seg Neutrophils # Man Lymphocytes # (Manual) Monocytes # (Manual) PT INR D-Dimer Heparin Anti-Xa Level ABG pH POC ABG pCO2 POC ABG pO2 ABG pO2 ABG HCO3 ABG O2 Saturation ABG Base Excess ABG Hemoglobin ABG Oxyhemoglobin ABG Sodium ABG Potassium ABG Chloride ABG Glucose Oxyhemoglobin Carboxyhemoglobin Sodium 150 H Potassium Chloride 108.7 H Carbon Dioxide 31 H BUN 35 H Creatinine Glucose 126 H POC Glucose 157 H Lactic Acid Calcium Ferritin AST 44 H ALT Alkaline Phosphatase 201 H Lactate Dehydrogenase Total Creatine Kinase CK-MB (CK-2) Rel Index Troponin T C-Reactive Protein Total Protein 6.0 L Albumin 2.2 L LDL Cholesterol Direct HDL Cholesterol Arterial Blood Glucose Arterial Blood Ionized Calcium Urine WBC (Auto) Vancomycin Trough Crossmatch 03/10/20 03/10/20 03/10/20 12:09 18:07 23:22 WBC RBC Hgb Hct MCH MCHC RDW Plt Count Lymph % (Auto) Lymph # (Auto) Seg Neutrophils % Seg Neuts % (Manual) Lymphocytes % (Manual) Monocytes % (Manual) Nucleated RBC % Seg Neutrophils # Seg Neutrophils # Man Lymphocytes # (Manual) Monocytes # (Manual) PT INR D-Dimer Heparin Anti-Xa Level ABG pH POC ABG pCO2 POC ABG pO2 ABG pO2 ABG HCO3 ABG O2 Saturation ABG Base Excess ABG Hemoglobin ABG Oxyhemoglobin ABG Sodium ABG Potassium ABG Chloride ABG Glucose Oxyhemoglobin Carboxyhemoglobin Sodium Potassium Chloride Carbon Dioxide BUN Creatinine Glucose POC Glucose 143 H 129 H 131 H Lactic Acid Calcium Ferritin AST ALT Alkaline Phosphatase Lactate Dehydrogenase Total Creatine Kinase CK-MB (CK-2) Rel Index Troponin T C-Reactive Protein Total Protein Albumin LDL Cholesterol Direct HDL Cholesterol Arterial Blood Glucose Arterial Blood Ionized Calcium Urine WBC (Auto) Vancomycin Trough Crossmatch 03/10/20 03/10/20 03/11/20 23:40 23:40 01:07 WBC RBC Hgb 8.3 L D Hct 25.9 L D MCH MCHC RDW Plt Count 129 L Lymph % (Auto) Lymph # (Auto) Seg Neutrophils % Seg Neuts % (Manual) Lymphocytes % (Manual) Monocytes % (Manual) Nucleated RBC % Seg Neutrophils # Seg Neutrophils # Man Lymphocytes # (Manual) Monocytes # (Manual) PT 15.1 H INR 1.17 H D-Dimer Heparin Anti-Xa Level ABG pH POC ABG pCO2 POC ABG pO2 ABG pO2 ABG HCO3 ABG O2 Saturation ABG Base Excess ABG Hemoglobin ABG Oxyhemoglobin ABG Sodium ABG Potassium ABG Chloride ABG Glucose Oxyhemoglobin Carboxyhemoglobin Sodium 153 H Potassium 3.5 L D Chloride 107.5 H Carbon Dioxide 32 H BUN 32 H Creatinine 0.7 L Glucose 128 H POC Glucose Lactic Acid Calcium 8.1 L Ferritin AST ALT Alkaline Phosphatase 147 H Lactate Dehydrogenase Total Creatine Kinase CK-MB (CK-2) Rel Index Troponin T C-Reactive Protein Total Protein 5.5 L Albumin 1.8 L LDL Cholesterol Direct HDL Cholesterol Arterial Blood Glucose Arterial Blood Ionized Calcium Urine WBC (Auto) Vancomycin Trough Crossmatch 03/11/20 03/11/20 03/11/20 05:15 06:50 11:32 WBC RBC Hgb Hct MCH MCHC RDW Plt Count Lymph % (Auto) Lymph # (Auto) Seg Neutrophils % Seg Neuts % (Manual) Lymphocytes % (Manual) Monocytes % (Manual) Nucleated RBC % Seg Neutrophils # Seg Neutrophils # Man Lymphocytes # (Manual) Monocytes # (Manual) PT INR D-Dimer Heparin Anti-Xa Level < 0.10 L ABG pH POC ABG pCO2 POC ABG pO2 ABG pO2 ABG HCO3 ABG O2 Saturation ABG Base Excess ABG Hemoglobin ABG Oxyhemoglobin ABG Sodium ABG Potassium ABG Chloride ABG Glucose Oxyhemoglobin Carboxyhemoglobin Sodium Potassium Chloride Carbon Dioxide BUN Creatinine Glucose POC Glucose 141 H 130 H Lactic Acid Calcium Ferritin AST ALT Alkaline Phosphatase Lactate Dehydrogenase Total Creatine Kinase CK-MB (CK-2) Rel Index Troponin T C-Reactive Protein Total Protein Albumin LDL Cholesterol Direct HDL Cholesterol Arterial Blood Glucose Arterial Blood Ionized Calcium Urine WBC (Auto) Vancomycin Trough Crossmatch 03/11/20 03/11/20 03/11/20 15:34 18:15 23:47 WBC RBC Hgb Hct MCH MCHC RDW Plt Count Lymph % (Auto) Lymph # (Auto) Seg Neutrophils % Seg Neuts % (Manual) Lymphocytes % (Manual) Monocytes % (Manual) Nucleated RBC % Seg Neutrophils # Seg Neutrophils # Man Lymphocytes # (Manual) Monocytes # (Manual) PT INR D-Dimer Heparin Anti-Xa Level 0.10 L ABG pH POC ABG pCO2 POC ABG pO2 ABG pO2 ABG HCO3 ABG O2 Saturation ABG Base Excess ABG Hemoglobin ABG Oxyhemoglobin ABG Sodium ABG Potassium ABG Chloride ABG Glucose Oxyhemoglobin Carboxyhemoglobin Sodium Potassium Chloride Carbon Dioxide BUN Creatinine Glucose POC Glucose 118 H 147 H Lactic Acid Calcium Ferritin AST ALT Alkaline Phosphatase Lactate Dehydrogenase Total Creatine Kinase CK-MB (CK-2) Rel Index Troponin T C-Reactive Protein Total Protein Albumin LDL Cholesterol Direct HDL Cholesterol Arterial Blood Glucose Arterial Blood Ionized Calcium Urine WBC (Auto) Vancomycin Trough Crossmatch 03/12/20 03/12/20 03/12/20 00:57 00:57 00:57 WBC RBC 3.41 L Hgb 9.3 L Hct 29.8 L MCH 27 L MCHC 31 L RDW 26.3 H Plt Count Lymph % (Auto) Lymph # (Auto) Seg Neutrophils % Seg Neuts % (Manual) 90.0 H Lymphocytes % (Manual) 8.0 L Monocytes % (Manual) Nucleated RBC % Seg Neutrophils # Seg Neutrophils # Man Lymphocytes # (Manual) 0.7 L Monocytes # (Manual) PT INR D-Dimer Heparin Anti-Xa Level < 0.10 L ABG pH POC ABG pCO2 POC ABG pO2 ABG pO2 ABG HCO3 ABG O2 Saturation ABG Base Excess ABG Hemoglobin ABG Oxyhemoglobin ABG Sodium ABG Potassium ABG Chloride ABG Glucose Oxyhemoglobin Carboxyhemoglobin Sodium 146 H Potassium Chloride Carbon Dioxide 31 H BUN 29 H Creatinine 0.6 L Glucose 156 H POC Glucose Lactic Acid Calcium 8.3 L Ferritin AST ALT Alkaline Phosphatase 151 H Lactate Dehydrogenase Total Creatine Kinase CK-MB (CK-2) Rel Index Troponin T C-Reactive Protein Total Protein 6.0 L Albumin 1.7 L LDL Cholesterol Direct HDL Cholesterol Arterial Blood Glucose Arterial Blood Ionized Calcium Urine WBC (Auto) Vancomycin Trough Crossmatch 03/12/20 03/12/20 03/12/20 04:27 05:52 09:32 WBC RBC Hgb 10.2 L Hct 33.4 L MCH MCHC RDW Plt Count Lymph % (Auto) Lymph # (Auto) Seg Neutrophils % Seg Neuts % (Manual) Lymphocytes % (Manual) Monocytes % (Manual) Nucleated RBC % Seg Neutrophils # Seg Neutrophils # Man Lymphocytes # (Manual) Monocytes # (Manual) PT INR D-Dimer Heparin Anti-Xa Level 0.27 L ABG pH POC ABG pCO2 POC ABG pO2 ABG pO2 ABG HCO3 ABG O2 Saturation ABG Base Excess ABG Hemoglobin ABG Oxyhemoglobin ABG Sodium ABG Potassium ABG Chloride ABG Glucose Oxyhemoglobin Carboxyhemoglobin Sodium Potassium Chloride Carbon Dioxide BUN Creatinine Glucose POC Glucose 143 H Lactic Acid Calcium Ferritin AST ALT Alkaline Phosphatase Lactate Dehydrogenase Total Creatine Kinase CK-MB (CK-2) Rel Index Troponin T C-Reactive Protein Total Protein Albumin LDL Cholesterol Direct HDL Cholesterol Arterial Blood Glucose Arterial Blood Ionized Calcium Urine WBC (Auto) Vancomycin Trough Crossmatch 03/12/20 03/12/20 03/12/20 12:20 13:21 16:51 WBC RBC Hgb Hct MCH MCHC RDW Plt Count Lymph % (Auto) Lymph # (Auto) Seg Neutrophils % Seg Neuts % (Manual) Lymphocytes % (Manual) Monocytes % (Manual) Nucleated RBC % Seg Neutrophils # Seg Neutrophils # Man Lymphocytes # (Manual) Monocytes # (Manual) PT INR D-Dimer Heparin Anti-Xa Level < 0.10 L ABG pH POC ABG pCO2 50.8 H POC ABG pO2 135.6 H ABG pO2 ABG HCO3 ABG O2 Saturation ABG Base Excess ABG Hemoglobin 10.6 L ABG Oxyhemoglobin ABG Sodium ABG Potassium ABG Chloride ABG Glucose 113 H Oxyhemoglobin Carboxyhemoglobin Sodium Potassium Chloride Carbon Dioxide BUN Creatinine Glucose POC Glucose 151 H Lactic Acid Calcium Ferritin AST ALT Alkaline Phosphatase Lactate Dehydrogenase Total Creatine Kinase CK-MB (CK-2) Rel Index Troponin T C-Reactive Protein Total Protein Albumin LDL Cholesterol Direct HDL Cholesterol Arterial Blood Glucose 113 H Arterial Blood Ionized Calcium Urine WBC (Auto) Vancomycin Trough Crossmatch 03/13/20 03/13/20 03/13/20 00:31 01:07 01:07 WBC RBC 3.03 L Hgb 8.3 L Hct 26.5 L D MCH MCHC RDW 24.5 H Plt Count Lymph % (Auto) 8.8 L Lymph # (Auto) 0.8 L Seg Neutrophils % 85.3 H Seg Neuts % (Manual) Lymphocytes % (Manual) Monocytes % (Manual) Nucleated RBC % Seg Neutrophils # Seg Neutrophils # Man Lymphocytes # (Manual) Monocytes # (Manual) PT INR D-Dimer Heparin Anti-Xa Level ABG pH POC ABG pCO2 POC ABG pO2 ABG pO2 ABG HCO3 ABG O2 Saturation ABG Base Excess ABG Hemoglobin ABG Oxyhemoglobin ABG Sodium ABG Potassium ABG Chloride ABG Glucose Oxyhemoglobin Carboxyhemoglobin Sodium 150 H Potassium Chloride Carbon Dioxide 34 H BUN 30 H Creatinine 0.7 L Glucose 132 H POC Glucose 123 H Lactic Acid Calcium 8.1 L Ferritin AST ALT Alkaline Phosphatase 150 H Lactate Dehydrogenase Total Creatine Kinase CK-MB (CK-2) Rel Index Troponin T C-Reactive Protein Total Protein 5.8 L Albumin 1.8 L LDL Cholesterol Direct HDL Cholesterol Arterial Blood Glucose Arterial Blood Ionized Calcium Urine WBC (Auto) Vancomycin Trough Crossmatch 03/13/20 03/13/20 03/13/20 02:43 05:22 12:12 WBC RBC Hgb Hct MCH MCHC RDW Plt Count Lymph % (Auto) Lymph # (Auto) Seg Neutrophils % Seg Neuts % (Manual) Lymphocytes % (Manual) Monocytes % (Manual) Nucleated RBC % Seg Neutrophils # Seg Neutrophils # Man Lymphocytes # (Manual) Monocytes # (Manual) PT INR D-Dimer Heparin Anti-Xa Level ABG pH 7.474 H POC ABG pCO2 48.2 H POC ABG pO2 123.0 H ABG pO2 ABG HCO3 ABG O2 Saturation ABG Base Excess ABG Hemoglobin 9.8 L ABG Oxyhemoglobin ABG Sodium ABG Potassium ABG Chloride ABG Glucose 117 H Oxyhemoglobin Carboxyhemoglobin Sodium Potassium Chloride Carbon Dioxide BUN Creatinine Glucose POC Glucose 111 H 121 H Lactic Acid Calcium Ferritin AST ALT Alkaline Phosphatase Lactate Dehydrogenase Total Creatine Kinase CK-MB (CK-2) Rel Index Troponin T C-Reactive Protein Total Protein Albumin LDL Cholesterol Direct HDL Cholesterol Arterial Blood Glucose 117 H Arterial Blood Ionized Calcium 4.5 L Urine WBC (Auto) Vancomycin Trough Crossmatch 03/14/20 03/14/20 03/14/20 00:25 00:25 04:16 WBC RBC 2.94 L Hgb 8.0 L 7.9 L Hct 25.6 L 25.0 L MCH 27 L MCHC 31 L RDW 24.4 H Plt Count Lymph % (Auto) 9.4 L Lymph # (Auto) 0.8 L Seg Neutrophils % 85.8 H Seg Neuts % (Manual) Lymphocytes % (Manual) Monocytes % (Manual) Nucleated RBC % Seg Neutrophils # Seg Neutrophils # Man Lymphocytes # (Manual) Monocytes # (Manual) PT INR D-Dimer Heparin Anti-Xa Level ABG pH POC ABG pCO2 POC ABG pO2 ABG pO2 ABG HCO3 ABG O2 Saturation ABG Base Excess ABG Hemoglobin ABG Oxyhemoglobin ABG Sodium ABG Potassium ABG Chloride ABG Glucose Oxyhemoglobin Carboxyhemoglobin Sodium Potassium 3.5 L Chloride Carbon Dioxide 34 H BUN 29 H Creatinine 0.7 L Glucose 112 H POC Glucose Lactic Acid Calcium 8.3 L Ferritin AST ALT Alkaline Phosphatase 138 H Lactate Dehydrogenase Total Creatine Kinase CK-MB (CK-2) Rel Index Troponin T C-Reactive Protein Total Protein 5.9 L Albumin 1.6 L LDL Cholesterol Direct HDL Cholesterol Arterial Blood Glucose Arterial Blood Ionized Calcium Urine WBC (Auto) Vancomycin Trough Crossmatch 03/14/20 03/14/20 03/14/20 05:13 05:28 12:17 WBC RBC Hgb Hct MCH MCHC RDW Plt Count Lymph % (Auto) Lymph # (Auto) Seg Neutrophils % Seg Neuts % (Manual) Lymphocytes % (Manual) Monocytes % (Manual) Nucleated RBC % Seg Neutrophils # Seg Neutrophils # Man Lymphocytes # (Manual) Monocytes # (Manual) PT INR D-Dimer Heparin Anti-Xa Level ABG pH 7.486 H POC ABG pCO2 50.2 H POC ABG pO2 ABG pO2 ABG HCO3 ABG O2 Saturation ABG Base Excess ABG Hemoglobin 10.7 L ABG Oxyhemoglobin ABG Sodium ABG Potassium ABG Chloride ABG Glucose 97 H Oxyhemoglobin Carboxyhemoglobin Sodium Potassium Chloride Carbon Dioxide BUN Creatinine Glucose POC Glucose 108 H 120 H Lactic Acid Calcium Ferritin AST ALT Alkaline Phosphatase Lactate Dehydrogenase Total Creatine Kinase CK-MB (CK-2) Rel Index Troponin T C-Reactive Protein Total Protein Albumin LDL Cholesterol Direct HDL Cholesterol Arterial Blood Glucose 97 H Arterial Blood Ionized Calcium 4.5 L Urine WBC (Auto) Vancomycin Trough Crossmatch 03/14/20 03/15/20 03/15/20 18:14 00:39 00:46 WBC RBC 2.85 L Hgb 7.8 L Hct 24.8 L MCH MCHC RDW 24.7 H Plt Count Lymph % (Auto) 10.3 L Lymph # (Auto) 0.8 L Seg Neutrophils % 84.5 H Seg Neuts % (Manual) Lymphocytes % (Manual) Monocytes % (Manual) Nucleated RBC % Seg Neutrophils # Seg Neutrophils # Man Lymphocytes # (Manual) Monocytes # (Manual) PT INR D-Dimer Heparin Anti-Xa Level ABG pH POC ABG pCO2 POC ABG pO2 ABG pO2 ABG HCO3 ABG O2 Saturation ABG Base Excess ABG Hemoglobin ABG Oxyhemoglobin ABG Sodium ABG Potassium ABG Chloride ABG Glucose Oxyhemoglobin Carboxyhemoglobin Sodium Potassium Chloride Carbon Dioxide BUN Creatinine Glucose POC Glucose 116 H 106 H Lactic Acid Calcium Ferritin AST ALT Alkaline Phosphatase Lactate Dehydrogenase Total Creatine Kinase CK-MB (CK-2) Rel Index Troponin T C-Reactive Protein Total Protein Albumin LDL Cholesterol Direct HDL Cholesterol Arterial Blood Glucose Arterial Blood Ionized Calcium Urine WBC (Auto) Vancomycin Trough Crossmatch 1003/15/20 03/15/20 00:46 00:46 05:50 WBC RBC Hgb Hct MCH MCHC RDW Plt Count Lymph % (Auto) Lymph # (Auto) Seg Neutrophils % Seg Neuts % (Manual) Lymphocytes % (Manual) Monocytes % (Manual) Nucleated RBC % Seg Neutrophils # Seg Neutrophils # Man Lymphocytes # (Manual) Monocytes # (Manual) PT INR D-Dimer Heparin Anti-Xa Level 0.26 L ABG pH POC ABG pCO2 POC ABG pO2 ABG pO2 ABG HCO3 ABG O2 Saturation ABG Base Excess ABG Hemoglobin ABG Oxyhemoglobin ABG Sodium ABG Potassium ABG Chloride ABG Glucose Oxyhemoglobin Carboxyhemoglobin Sodium Potassium Chloride 97.0 L Carbon Dioxide 35 H BUN 28 H Creatinine 0.7 L Glucose 110 H POC Glucose 124 H Lactic Acid Calcium 7.9 L Ferritin AST ALT Alkaline Phosphatase 140 H Lactate Dehydrogenase Total Creatine Kinase CK-MB (CK-2) Rel Index Troponin T C-Reactive Protein Total Protein 5.3 L Albumin 2.1 L LDL Cholesterol Direct HDL Cholesterol Arterial Blood Glucose Arterial Blood Ionized Calcium Urine WBC (Auto) Vancomycin Trough Crossmatch 03/15/20 07:47 WBC RBC Hgb Hct MCH MCHC RDW Plt Count Lymph % (Auto) Lymph # (Auto) Seg Neutrophils % Seg Neuts % (Manual) Lymphocytes % (Manual) Monocytes % (Manual) Nucleated RBC % Seg Neutrophils # Seg Neutrophils # Man Lymphocytes # (Manual) Monocytes # (Manual) PT INR D-Dimer Heparin Anti-Xa Level 0.22 L ABG pH POC ABG pCO2 POC ABG pO2 ABG pO2 ABG HCO3 ABG O2 Saturation ABG Base Excess ABG Hemoglobin ABG Oxyhemoglobin ABG Sodium ABG Potassium ABG Chloride ABG Glucose Oxyhemoglobin Carboxyhemoglobin Sodium Potassium Chloride Carbon Dioxide BUN Creatinine Glucose POC Glucose Lactic Acid Calcium Ferritin AST ALT Alkaline Phosphatase Lactate Dehydrogenase Total Creatine Kinase CK-MB (CK-2) Rel Index Troponin T C-Reactive Protein Total Protein Albumin LDL Cholesterol Direct HDL Cholesterol Arterial Blood Glucose Arterial Blood Ionized Calcium Urine WBC (Auto) Vancomycin Trough Crossmatch
--- NOTE | 2020-03-15 12:45 | Discharge Summary ---
Providers - Providers Date of Admission: 02/25/20 03:54 Date of discharge: 03/15/20 Attending physician: DIEGO LYNN 02/25/20 02:56 Consult to Physician [CONS] Routine Comment: Consulting Provider: VANESSA NUNEZ Physician Instructions: Reason For Exam: PNA 02/25/20 04:16 Consult to Dietitian/Nutrition [CONS] Routine Physician Instructions: Reason For Exam: Reason for Consult: Diet education 02/25/20 04:22 Consult to Cardiology [CONS] Routine Consulting Provider: JOSE D BRYANT Reason For Exam: ELEVATED TROPONIN 02/25/20 07:50 Consult to Physician [CONS] Routine Comment: Consulting Provider: SAM NG Physician Instructions: Reason For Exam: PNEUMONIA, UTI, SEPTIC SHOCK 02/25/20 10:27 Consult to PICC Line RN [CONS] Routine Reason For Exam: vasopressors Type Line:: PICC 02/25/20 12:09 Consult to Wound/ET Nurse [CONS] Routine Reason For Exam: wound eval/severe sepsis thank you 02/25/20 13:06 Consult to Physician [CONS] Stat Comment: Consulting Provider: SAM NG Physician Instructions: Reason For Exam: CCU admission 02/27/20 09:37 Consult to Dietitian/Nutrition [CONS] Routine Physician Instructions: Reason For Exam: Reason for Consult: Write/Manage Tube Feeding 03/01/20 13:47 Speech Therapy Evaluation and Treat [CONS] Routine Reason For Exam: s/p extubation. 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 03/09/20 11:31 Consult to Physician [CONS] Routine Comment: Consulting Provider: KATHY SAHU Physician Instructions: Reason For Exam: IR guided biopsy of bone lesion, concern for mets [facility] Condition: Critical Disposition: DC-50 TO HOSPICE (HOME) Time spent for discharge: 34 minutes Core Measure Documentation - Palliative Care Palliative Care/ Comfort Measures: Hospice Care - Core Measures Any of the following diagnoses?: history only Exam - Physical Exam Narrative exam: General appearance: Present: no acute distress, other (Intubated) - EENT Eyes: Present: PERRL - Neck Neck: Present: supple - Respiratory Respiratory: bilateral: rales - Extremities Extremity abnormal: edema (Chest) - Abdominal General gastrointestinal: soft, non-tender, non-distended, normal bowel sounds - Neurologic Neurologic: other (Sedated) - Constitutional Vitals: Temp Pulse Resp BP Pulse Ox 97.5 F L 90 27 H 99/68 99 03/15/20 12:00 03/15/20 12:32 03/15/20 12:00 03/15/20 12:32 03/15/20 12:32 Plan Activity: other (bedrest) Diet: other (TF) Additional Instructions: Please continue TB meds while in hospice care Follow up with: MARGARITO DE ANDA MD [Primary Care Provider] - 7 Days
[2020-03-15] MEDS: PYRIDOXINE 50 MG TAB PO SCH (12:47)
[2020-03-15] MEDS: LISINOPRIL 5 MG TAB PO SCH (12:47)
[2020-03-15 15:13] VITALS: BP 98/65
== END 2020-03-15 15:30 | disposition hospice, home (50) | DRG 870 ==
LOC: ED 00:25 → IMCU 03:54 → CC1 13:42
PROVIDERS: ADMIT Internal Medicine Geriatric Medicine; ATTEND Internal Medicine
PROC: 5A1955Z Respiratory Ventilation, Greater than 96 Consecutive Hours (ICD-10-PCS; principal; 2020-02-25)
PROC: 0BH17EZ Insertion of Endotracheal Airway into Trachea, Via Natural or Artificial Opening (ICD-10-PCS; 2020-02-25)
PROC: 30233N1 Transfusion of Nonautologous Red Blood Cells into Peripheral Vein, Percutaneous Approach (ICD-10-PCS; 2020-02-26)
PROC: 02HV33Z Insertion of Infusion Device into Superior Vena Cava, Percutaneous Approach (ICD-10-PCS; 2020-03-04)
PROC: 4A033R1 Measurement of Arterial Saturation, Peripheral, Percutaneous Approach (ICD-10-PCS; 2020-03-08)
DX: A41.9 Sepsis, unspecified organism (principal); J18.9 Pneumonia, unspecified organism; I21.4 Non-ST elevation (NSTEMI) myocardial infarction; N39.0 Urinary tract infection, site not specified; E87.2 Acidosis; R64 Cachexia; I95.9 Hypotension, unspecified; Z68.1 Body mass index [BMI] 19.9 or less, adult; I46.9 Cardiac arrest, cause unspecified; J96.01 Acute respiratory failure with hypoxia; R65.21 Severe sepsis with septic shock; J90 Pleural effusion, not elsewhere classified; Z20.828 Contact with and (suspected) exposure to other viral communicable diseases; T83.511A Infection and inflammatory reaction due to indwelling urethral catheter, initial encounter; D64.9 Anemia, unspecified; A15.0 Tuberculosis of lung; G82.20 Paraplegia, unspecified; Z51.5 Encounter for palliative care; I82.411 Acute embolism and thrombosis of right femoral vein; I82.431 Acute embolism and thrombosis of right popliteal vein; I42.0 Dilated cardiomyopathy; D69.6 Thrombocytopenia, unspecified; E87.0 Hyperosmolality and hypernatremia; E43 Unspecified severe protein-calorie malnutrition; I76 Septic arterial embolism; I74.10 Embolism and thrombosis of unspecified parts of aorta; I50.20 Unspecified systolic (congestive) heart failure; B37.9 Candidiasis, unspecified; S30.91XA Unspecified superficial injury of lower back and pelvis, initial encounter; X58.XXXA Exposure to other specified factors, initial encounter
CPT/HCPCS: 31500; 36415; 36600; 71045; 71260; 74018; 74177; 80048; 80053; 80061; 80076; 80202; 80307; 81001; 82140; 82164; 82550; 82553; 82728; 82803; 82805; 82947; 82962; 83615; 84145; 84484; 85007; 85014; 85018; 85025; 85027; 85049; 85379; 85520; 85610; 85730; 86022; 86140; 86689; 86850; 86900; 86901; 86920; 87040; 87070; 87086; 87205; 87641; 88112; 88312; 92950; 93005; 93306; 93925; 93970; 94002; 94003; 94640; 94660; 94760; G0378; J0171; J0282; J0456; J0692; J0696; J1100; J1170; J1250; J1630; J1644; J1940; J2060; J2185; J2250; J2704; J3010; J3370; J3480; J3490; J7030; J7040; J7050; J7060; P9016; Q9967; U0003-CS

== ENCOUNTER 2020-05-21 22:50 | Emergency (ER) | payer MEDICAID ==
--- NOTE | 2020-05-21 23:12 | Emergency Department Report ---
ED CPR HPI - General Stated Complaint: CARDIAC ARREST Time Seen by Provider: 05/21/20 23:03 Source: EMS, old records reviewed Mode of arrival: Stretcher Limitations: Other (cardiac arrest) - History of Present Illness Initial Comments: Chief complaint: Cardiac arrest HPI: This is a 44-year-old male with history of paraplegia and tuberculosis who presents in cardiac arrest. Paramedics stated that initial rhythm was ventricular tachycardia. Patient was intubated with endotracheal tube. He was treated with 2 shocks, amiodarone, epinephrine. According to electronic medical record, patient was treated for sepsis UTI pneumonia in January. Patient went into cardiac arrest during hospitalization. According to consultation with propagation worker, overall prognosis deemed extremely poor. Patient was discharged home to hospice care. MD Complaint: found unresponsive, stopped breathing Place: home Shock Advised: Yes Number of Shocks Delivered: 2 Initial Findings in the Field: unresponsive, VTACH/VFIB ROSC in the Field: No Associated Injuries: No Treatments Prior to Arrival: intubation, epinephrine mgs # - Related Data Home Medications Medication Instructions Recorded Confirmed Last Taken Methadone [Dolophine] 10 mg PO 6XD 02/27/20 02/27/20 Unknown Oxycodone HCl/Acetaminophen 10 mg PO Q4HR PRN 02/27/20 02/27/20 Unknown [Percocet 10/325 mg] Previous Rx's Medication Instructions Recorded Last Taken Type ALBUTEROL NEB's [Proventil 0.083% 2.5 mg IH Q4HRT PRN nebu 03/15/20 Unknown Rx NEBS] Ethambutol [Myambutol] 800 mg PO QDAY tablet 03/15/20 Unknown Rx Glycopyrrolate [Robinul] 1 mg PO BID tablet 03/15/20 Unknown Rx Isoniazid 300 mg PO QDAY tablet 03/15/20 Unknown Rx Pyrazinamide 1,000 mg PO QDAY tablet 03/15/20 Unknown Rx Pyridoxine [Vitamin B-6 50MG TAB] 50 mg PO QDAY tablet 03/15/20 Unknown Rx rifAMPin [Rifadin] 600 mg PO QDAY capsule 03/15/20 Unknown Rx Allergies Allergy/AdvReac Type Severity Reaction Status Date / Time No Known Allergies Allergy Verified 02/25/20 03:59 ED Review of Systems ROS: Stated complaint: CARDIAC ARREST Other details as noted in HPI Comment: Unobtainable due to pts medical conditions (Cardiac arrest) ED Past Medical Hx - Past Medical History Previous Medical History?: Yes Hx Deep Vein Thrombosis: (unknown) Hx Tuberculosis: Yes Additional medical history: Paralyzed/waist - Surgical History Hx Pacemaker: No Hx Internal Defibrillator: No - Social History Smoking Status: Unknown if ever smoked - Medications Home Medications: Home Medications Medication Instructions Recorded Confirmed Last Taken Type Methadone [Dolophine] 10 mg PO 6XD 02/27/20 02/27/20 Unknown History Oxycodone HCl/Acetaminophen 10 mg PO Q4HR PRN 02/27/20 02/27/20 Unknown History [Percocet 10/325 mg] ALBUTEROL NEB's [Proventil 0.083% 2.5 mg IH Q4HRT PRN nebu 03/15/20 Unknown Rx NEBS] Ethambutol [Myambutol] 800 mg PO QDAY tablet 03/15/20 Unknown Rx Glycopyrrolate [Robinul] 1 mg PO BID tablet 03/15/20 Unknown Rx Isoniazid 300 mg PO QDAY tablet 03/15/20 Unknown Rx Pyrazinamide 1,000 mg PO QDAY tablet 03/15/20 Unknown Rx Pyridoxine [Vitamin B-6 50MG TAB] 50 mg PO QDAY tablet 03/15/20 Unknown Rx rifAMPin [Rifadin] 600 mg PO QDAY capsule 03/15/20 Unknown Rx ED Physical Exam - General Limitations: Other (Cardiac arrest) General appearance: other (Lifeless cachectic appears chronically ill, pale) - Head Head exam: Present: atraumatic, normocephalic - Eye Eye exam: Present: other (Fixed dilated pupils, dried corneas) - ENT ENT exam: Present: mucous membranes dry, other (Pale mucous membranes ETT in place) - Neck Neck exam: Present: normal inspection - Respiratory Respiratory exam: Present: respiratory distress, other (No spontaneous respirations, coarse breath sounds with ventilation through ETT) - Cardiovascular Cardiovascular Exam: Present: other (No spontaneous heart sounds no auscultated heart sounds) - GI/Abdominal GI/Abdominal exam: Present: soft, other (Vertical long surgical scar) - Extremities Exam Extremities exam: Present: other (Cachectic extremities without traumatic def ormity) - Neurological Exam Neurological exam: Present: other (Lifeless no spontaneous movement) - Psychiatric Psychiatric exam: Present: other (Lifeless no spontaneous movement) - Skin Skin exam: Present: rash, pallor ED Medical Decision Making - Medical Decision Making Patient presents in cardiac arrest. Patient received 20 minutes of resuscitation attempt via ACLS per EMS. Patient was treated with ETT, shocks, amiodarone, epinephrine prior to arrival. Upon arrival rhythm asystole. Patient pulseless without signs of life. Further resuscitation attempts deemed futile. Time of 2255 Critical care attestation.: If time is entered above; I have spent that time in minutes in the direct care of this critically ill patient, excluding procedure time. ED Disposition Clinical Impression: Cardiac arrest, Tuberculosis, Paraplegia Disposition: DC-20 Is pt being admited?: No Does the pt Need Aspirin: No Time of Disposition: 22:55
== END 2020-05-22 01:15 ==
LOC: ED 22:50
DX: I46.9 Cardiac arrest, cause unspecified (principal); A15.9 Respiratory tuberculosis unspecified; G82.20 Paraplegia, unspecified; Z79.899 Other long term (current) drug therapy